=== PATIENT | male | born 1985 | race Caucasian/White ===

== ENCOUNTER 2016-09-16 21:35 | Emergency (ER) | payer MEDICAID, OTHER ==
[~2016-09-16] VITALS: Ht 177.8 cm; Wt 89.0 kg
[~2016-09-16 21:35] MED LIST: CIPR500T4 PO; FAMO-18 PO; ONDA4TAB8 PO; RANI150T9 PO
[2016-09-16 21:57] VITALS: Ht 177.8 cm; Wt 89.0 kg
[2016-09-16] MEDS ORDERED: HYDROCODONE/APAP (10/325) TAB PO ONE (23:00)
--- NOTE | 2016-09-16 23:06 | ERD ---
ER Documentation Chief Complaint Date/Time DATE: 09/16/16 TIME: 23:03 Chief Complaint sp fall 1 floor right rib pain 3 days ago HPI This is a 31-year-old male who presents to the emergency department today complaining of some right-sided rib pain and chest pain as shortness of breath after falling off his roof 3 days ago. Patient eats she was patching the roof after the rain when he slipped and fell. She smokes cigarettes. States that he took Motrin yesterday. He has not taken any medication today. Denies any fevers or chills. Denies any headache or loss of consciousness ROS All systems reviewed and are negative except as per history of present illness. Medications Home Meds Active Scripts Naproxen* (Naprosyn*) 500 Mg Tablet, 500 MG PO BID Y for PAIN AND/OR INFLAMMATION, #30 TAB Prov:NURIS MARCELINOC 09/17/16 Tramadol HCl (Tramadol HCl) 50 Mg Tablet, 50 MG PO Q4 Y for PAIN, #20 TAB Prov:NURIS MARCELINO PA-C 09/17/16 Famotidine* (Pepcid*) 20 Mg Tablet, 20 MG PO BID for 14 Days, TAB Prov:NURIS MARCELINOC 06/02/16 Ondansetron Hcl* (Zofran*) 4 Mg Tablet, 4 MG PO Q6H for NAUSEA AND/OR VOMITING, #30 TAB Prov:NURIS MARCELINO PA-C 06/02/16 Ranitidine Hcl* (Zantac*) 150 Mg Tablet, 150 MG PO BID, #60 TAB Prov:RIVKA RODRIGUEZ DO 05/22/16 Ciprofloxacin Hcl* (Ciprofloxacin Hcl*) 500 Mg Tablet, 500 MG PO BID for 7 Days , TAB Prov:RIVKA RODRIGUEZ DO 05/22/16 Allergies Allergies: Coded Allergies: shellfish derived (Verified Allergy, Unknown, RASH, ITCHINESS, 06/02/16) PMhx/Soc History of Surgery: No Anesthesia Reaction: No Hx 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 Disorder: No Hx Respiratory Disorders: No Hx Cardiac Disorders: No Hx Psychiatric Problems: No Hx Miscellaneous Medical Probl: Yes (hepatitis , alcohol abuse ,pancreatitis ) Hx Alcohol Use: Yes Hx Substance Use: Yes (cocaine ) Hx Tobacco Use: Yes Smoking Status: Current every day smoker Physical Exam Vitals Vital Signs Date Time Temp Pulse Resp B/P Pulse Ox O2 Delivery O2 Flow Rate FiO2 09/16/16 21:57 98.2 96 20 130/81 98 Physical Exam Const: No acute distress Head: Atraumatic Eyes: Normal Conjunctiva ENT: Normal External Ears, Nose and Mouth. Neck: Full range of motion..~ No meningismus. Resp: Clear to auscultation bilaterally. No absent breath sounds. No wheezing. Right-sided rib pain with tenderness to palpation Cardio: Regular rate and rhythm, no murmurs Abd: Soft, non tender, non distended. Normal bowel sounds. Skin: No petechiae or rashes Back: Thoracic spine midline tenderness. Ext: No cyanosis, or edema Neur: Awake and alert Psych: Normal Mood and Affect Results 24 hrs Current Medications Medications (Trade) Dose Ordered Sig/Meka Route PRN Reason Start Time Stop Time Status Last Admin Dose Admin Acetaminophen/ Hydrocodone Bitart (Midpines (10/325)) 1 tab ONCE ONCE PO 09/16/16 23:00 09/16/16 23:01 DC 09/16/16 23:20 Ibuprofen (Motrin) 800 mg ONCE ONCE PO 09/17/16 00:30 09/17/16 00:31 DC 09/17/16 00:26 DIAGNOSTIC IMAGING REPORT Patient: LIT WOOD : 1985 Age: 31 Sex: M MR #: [id number] DOS: 09/16/16 0000 Ordering MD: NURIS MARCELINO PA-C Location: E Room/Bed: PROCEDURE: XR thoracic spine CLINICAL INDICATION: Back pain after fall from roof. TECHNIQUE: AP, swimmers and lateral views of the thoracic spine were obtained. COMPARISON: None available FINDINGS: Bone architecture and mineralization are preserved. Thoracic kyphosis is preserved. Vertebral body stature is intact. No significant disk space narrowing is present. No lytic or blastic lesion is evident. The posterior elements and paraspinal soft tissues are normal. RPTAT:HJJR IMPRESSION: Unremarkable thoracic spine series. Tee Johnson Physician Date Time Electronically viewed and signed by Tee Johnson Physician on 09/17/2016 00:03 JR/ CC: NURIS MARCELINO PA-C DIAGNOSTIC IMAGING REPORT Patient: LIT WOOD : 1985 Age: 31 Sex: M MR #: [id number] DOS: 09/16/16 0000 Ordering MD: NURIS MARCELINO PA-C Location: FTE Room/Bed: PROCEDURE: XR Chest. CLINICAL INDICATION: Chest pain after fall from roof. TECHNIQUE: Portable AP view of the chest was obtained. COMPARISON: Rib series 09/16/2016 FINDINGS: The cardiomediastinal silhouette is within normal limits. The lungs are clear. There is no evidence for pleural effusion, pneumothorax or pulmonary vascular congestion. The osseous structures are intact with no evidence for acute abnormality. RPTAT:HJJR IMPRESSION: No evidence for acute intrathoracic pathology. Tee Johnson Physician Date Time Electronically viewed and signed by Physician Cassie on 09/17/2016 00:30 JR/ CC: NURIS MARCELINO PA-C DIAGNOSTIC IMAGING REPORT Patient: LIT WOOD : 1985 Age: 31 Sex: M MR #: [id number] DOS: 09/16/16 0000 Ordering MD: NURIS MARCELINO PA-C Location: FTE Room/Bed: PROCEDURE: XR Ribs. CLINICAL INDICATION: Status post trauma to right chest, fall from roof. TECHNIQUE: Four views of the right ribs were obtained. COMPARISON: None. FINDINGS: No rib fracture or other focal lesion is identified. The underlying lungs are unremarkable, without pleural effusion or pneumothorax seen. RPTAT:HJJR IMPRESSION: Unremarkable right rib series. Physician Cassie Date Time Electronically viewed and signed by Tee Johnson Physician on 09/17/2016 00:29 JR/ CC: NURIS MARCELINO PA-C Procedures/[facility] This 31-year-old male who presents the emergency department complaining of right -sided rib pain and shortness of breath after falling off a roof. Patient did have tenderness on physical exam he also had midline tenderness on his thoracic spine and therefore did obtain Per the radiology report Chest x-ray is negative. There is no evidence for pleural effusion, pneumothorax. Low suspicion for pneumonia, PE, abscess Rib series is unremarkable. There is no acute fracture or dislocation. Thoracic spine is unremarkable. There is no acute fracture or dislocation. There is no significant disc space narrowing. There is no lytic or blastic lesion. Symptoms at this time consistent with a contusion Patient was given Midpines here in the emergency department. I will give him a short course of tramadol as well as Naprosyn for home. At this time the patient is stable for discharge and outpatient management. Patient should follow up with their PCP in the next 1-2 days. They may return to the emergency department sooner for any persistent or worsening of symptoms. Patient understood and agreed with the plan. Departure Diagnosis: Primary Impression: Rib injury Condition: Fair NURIS MARCELNIO PA-C Sep 16, 2016 23:06
--- NOTE | 2016-09-17 00:03 | RADRPT ---
PROCEDURE: XR thoracic spine CLINICAL INDICATION: Back pain after fall from roof. TECHNIQUE: AP, swimmers and lateral views of the thoracic spine were obtained. COMPARISON: None available FINDINGS: Bone architecture and mineralization are preserved. Thoracic kyphosis is preserved. Vertebral body s tature is intact. No significant disk space narrowing is present. No lytic or blastic lesion is seamus dent. The posterior elements and paraspinal soft tissues are normal. RPTAT:HJJR IMPRESSION: Unremarkable thoracic spine series. Physician Cassie Date Time Electronically viewed and signed by Physician Cassie on 09/17/2016 00:03 /
--- NOTE | 2016-09-17 00:29 | RADRPT ---
PROCEDURE: XR Ribs. CLINICAL INDICATION: Status post trauma to right chest, fall from roof. TECHNIQUE: Four views of the right ribs were obtained. COMPARISON: None. FINDINGS: No rib fracture or other focal lesion is identified. The underlying lungs are unremarkable, without pleural effusion or pneumothorax seen. RPTAT:HJJR IMPRESSION: Unremarkable right rib series. Physician Cassie Date Time Electronically viewed and signed by Tee Johnson Physician on 09/17/2016 00:29 /
[2016-09-17] MEDS ORDERED: IBUPROFEN 800 MG TAB PO ONE (00:30)
--- NOTE | 2016-09-17 00:30 | RADRPT ---
PROCEDURE: XR Chest. CLINICAL INDICATION: Chest pain after fall from roof. TECHNIQUE: Portable AP view of the chest was obtained. COMPARISON: Rib series 09/16/2016 FINDINGS: The cardiomediastinal silhouette is within normal limits. The lungs are clear. There is no evidenc e for pleural effusion, pneumothorax or pulmonary vascular congestion. The osseous structures are i ntact with no evidence for acute abnormality. RPTAT:HJJR IMPRESSION: No evidence for acute intrathoracic pathology. Physician Cassie Date Time Electronically viewed and signed by Tee Johnson Physician on 09/17/2016 00:30 JR/
[2016-09-17] MEDS ORDERED: NAPR-260 PO (00:48)
[2016-09-17] MEDS ORDERED: TRAM50TA2 PO (00:48)
[2016-09-17 01:07] VITALS: BP 123/69; PULSE 75; RESP 20; TEMP 98.6
== END 2016-09-17 01:08 | disposition home or self-care (01) ==
LOC: FTE 21:35
DX: S29.9XXA Unspecified injury of thorax, initial encounter (principal); F17.210 Nicotine dependence, cigarettes, uncomplicated; W13.2XXA Fall from, out of or through roof, initial encounter; Y92.9 Unspecified place or not applicable
CPT/HCPCS: 71010; 71100; 72072; Z7502; Z7610

== ENCOUNTER 2016-10-08 07:33 | Inpatient (IN) | payer OTHER ==
[~2016-10-08] VITALS: Ht 172.7 cm; Wt 83.0 kg
[~2016-10-08 07:33] MED LIST changes: +NAPR-260 PO; +TRAM50TA2 PO
[2016-10-08] MEDS ORDERED: morphine 4 MG/ML VIAL IV STA (07:54)
[2016-10-08] MEDS ORDERED: BELLADONNA/PHENOBARBITAL TAB PO STA (07:54)
[2016-10-08] MEDS ORDERED: SOD CHLORIDE 0.9% 1,000 ML IV STA (07:54)
[2016-10-08] MEDS ORDERED: ONDANSETRON 4 MG INJ IV STA ×2 (07:54→09:38)
[2016-10-08] MEDS ORDERED: LIDOCAINE/MYLANTA 40 ML BTL PO STA (07:54)
[2016-10-08 08:06] LABS: ADD SCAN DIFF NO
--- NOTE | 2016-10-08 08:11 | ERD ---
ER Documentation Chief Complaint Date/Time DATE: 10/08/16 TIME: 07:57 Chief Complaint mid upper sharp abdominal pain x 1 week; nausea and vomitting HPI This is a 31-year-old male with a remote history of pancreatitis that presents to the emergency department complaining of a persistent sharp epigastric discomfort for the past 7 days. The patient indicates he consumed a small amount of alcohol 4 days prior to arrival but indicates that this pain is different from his previous episodes of pancreatitis. He has had 2 episodes of nonbloody nonbilious emesis in the past 24 hours. He is felt nauseous throughout the past 7 days. He indicates that the pain does radiate to the right upper quadrant but does not radiate to the back. He has had no diarrhea or constipation. He denies any recent travel or prolonged immobilization. He denies any recent remote blunt or penetrating abdominal wall trauma. He denies a fever shaking or chills. He has no shortness of breath at rest or exertion. He denies any frequency urgency or dysuria. He denies a headache or changes in vision. He has no chest pain or pressure that radiates to the neck arm back or jaw. He did not take any analgesic medication prior to arrival. He also indicates that over the past 7 days he has had a very dry hands with peeling of the skin on his hands but denies any tenderness of his upper extremities. He denies any changes in soaps or detergents or use of acidic or alkaline products that could have resulted in the dry skin. ROS All systems reviewed and are negative except as per history of present illness. Medications Home Meds Active Scripts Hydrocortisone (Hydrocortisone Oi) 28.35 Gm Oint, 28.35 GM TP BID, #1 Prov:JUAN SHEPARD 10/08/16 Sucralfate* (Carafate*) 1 Gm Tab, 1 GM PO QID Y for GASTROINTESTINAL UPSET, #30 TAB Prov:JUAN SHEPARD 10/08/16 Naproxen* (Naprosyn*) 500 Mg Tablet, 500 MG PO BID Y for PAIN AND/OR INFLAMMATION, #30 TAB Prov:NURIS MARCELINO PA-C 09/17/16 Tramadol HCl (Tramadol HCl) 50 Mg Tablet, 50 MG PO Q4 Y for PAIN, #20 TAB Prov:NURIS MARCELINO PA-C 09/17/16 Famotidine* (Pepcid*) 20 Mg Tablet, 20 MG PO BID for 14 Days, TAB Prov:CHARINURISLuz SILVA 06/02/16 Ondansetron Hcl* (Zofran*) 4 Mg Tablet, 4 MG PO Q6H for NAUSEA AND/OR VOMITING, #30 TAB Prov:CHARINURISNelda Beck PA-C 06/02/16 Ranitidine Hcl* (Zantac*) 150 Mg Tablet, 150 MG PO BID, #60 TAB Prov:LISANDROMUKUND PENAANGEL CRAVEN 05/22/16 Ciprofloxacin Hcl* (Ciprofloxacin Hcl*) 500 Mg Tablet, 500 MG PO BID for 7 Days , TAB Prov:MICHAELMUKUNDANGEL 05/22/16 Allergies Allergies: Coded Allergies: shellfish derived (Verified Allergy, Unknown, RASH, ITCHINESS, 06/02/16) PMhx/Soc Medical and Surgical Hx: pt denies Surgical Hx History of Surgery: No Anesthesia Reaction: No Hx 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 Disorder: No Hx Respiratory Disorders: No Hx Cardiac Disorders: No Hx Psychiatric Problems: No Hx Miscellaneous Medical Probl: Yes (hepatitis , alcohol abuse ,pancreatitis ) Hx Alcohol Use: Yes (Cut back on intake, last Sat. night) Hx Substance Use: Yes (cocaine ) Hx Tobacco Use: Yes Smoking Status: Current some day smoker Physical Exam Vitals Vital Signs Date Time Temp Pulse Resp B/P Pulse Ox O2 Delivery O2 Flow Rate FiO2 10/08/16 07:43 97.9 68 19 119/78 97 Physical Exam Constitutional:Well-developed. Well-nourished. HEENT:Normocephalic. Atraumatic.Pupils were equal round reactive to light. Moist mucous membranes.No tonsillar exudates. Neck: No nuchal rigidity. No lymphadenopathy. No posterior cervical spine tenderness or step-offs. Respiratory: Not using accessory muscles of respiration.Lungs were clear to auscultation bilaterally. No rhonchi. No rales. No wheezing. Cardiovascular: Regular rate regular rhythm.No murmurs. No rubs were appreciated.S1, S2 normal. Distal pulses are palpable 2+ bilaterally. GI: Abdomen was soft. Epigastric tenderness with mild tenderness in the right upper quadrant with negative Whipple's sign Non Distended. No pulsatile abdominal masses or bruits. No rebound. No guarding. Bowel sounds were present and normal. Muscle skeletal: Full range of motion of both the upper and lower extremities bilaterally.Normal muscle tone.No assymetrical calf tenderness or swelling. Skin: No petechia, no purpura. No lesions on the palms or the soles of the feet. No maculopapular rash. There is no sharply demarcated color changes of the skin of the digits to suggest Raynaud phenomenon. Scaling and cracking to the skin with no redness or excoriation and no bleeding to the digits on the dorsal surface of the bilateral digits of the upper extremity. NEURO: Patient was alert, awake, orientated x3.No facial droop. Gait observed and normal with no ataxia.Speech had regular rate and rhythm. No focal neurological deficits. Result Diagram: 10/08/1680210/08/16802 Results 24 hrs Laboratory Tests Test 10/08/16 08:03 Alanine Aminotransferase (ALT/SGPT) 62IU/L Albumin 4.2g/dl Albumin/Globulin Ratio 0.82 Alkaline Phosphatase 541IU/L Amylase Level 51U/L Anion Gap 19 Aspartate Amino Transf (AST/SGOT) 182IU/L Basophils # 0.110^3/ul Basophils % 0.6% Blood Urea Nitrogen 7mg/dl C-Reactive Protein 1.4mg/dl Calcium Level 9.7mg/dl Carbon Dioxide Level 29mmol/L Chloride Level 99mmol/L Creatinine 0.61mg/dl Direct Bilirubin 0.00mg/dl Eosinophils # 0.710^3/ul Eosinophils % 3.2% Globulin 5.10g/dl Glucose Level 102mg/dl Hematocrit 47.2% Hemoglobin 15.9g/dl Indirect Bilirubin 1.0mg/dl Lipase 75U/L Lymphocytes # 1.910^3/ul Lymphocytes % 9.0% Mean Corpuscular Hemoglobin 33.1pg Mean Corpuscular Hemoglobin Concent 33.7g/dl Mean Corpuscular Volume 98.1fl Mean Platelet Volume 11.6fl Monocytes # 1.110^3/ul Monocytes % 5.4% Neutrophils # 17.210^3/ul Neutrophils % 80.8% Nucleated Red Blood Cells # 0.010^3/ul Nucleated Red Blood Cells % 0.0/100WBC Platelet Count 15566^3/UL Potassium Level 4.3mmol/L Red Blood Count 4.8110^6/ul Red Cell Distribution Width 16.1% Sodium Level 143mmol/L Total Bilirubin 1.0mg/dl Total Protein 9.3g/dl White Blood Count 21.210^3/ul Current Medications Medications (Trade) Dose Ordered Sig/Meka Route PRN Reason Start Time Stop Time Status Last Admin Dose Admin Sodium Chloride (NS) 1,000 ml @ 1,000 mls/hr Q1H STAT IV 10/08/16 07:54 10/08/16 08:53 DC 10/08/16 08:05 Morphine Sulfate (morphine) 4 mg ONCE STAT IV 10/08/16 07:54 10/08/16 07:58 DC 10/08/16 08:05 Ondansetron HCl (Zofran Inj) 4 mg ONCE STAT IV 10/08/16 07:54 10/08/16 07:58 DC 10/08/16 08:05 Miscellaneous Medication (Gi Cocktail (2)) 40 ml ONCE STAT PO 10/08/16 07:54 10/08/16 07:58 DC 10/08/16 08:05 Belladonna/ Phenobarbital () 2 tab ONCE STAT PO 10/08/16 07:54 10/08/16 07:58 DC 10/08/16 08:05 Procedures/MDM The patient presented to the emergency department with epigastric pain. My differential diagnosis included but was not limited to abdominal aortic aneurysm , choledocholithiasis, gallstone ileus, renal colic, pyelonephritis, pancreatitis, peptic ulcer disease, atypical myocardical infarction, mesenteric ischemia, GERD, pulmonary infarction. The patient was placed on a preservationist, continuous pulse oximetry and IV access was established by nursing staff. I did obtain an ultrasound of the gallbladder due to the patient's physical exam findings which indicated the following read by the radiologist and reviewed by myself: Mild gallbladder wall thickening of 3mm with trace pericholecystic fluid. This was present on the previous CT from 05/22/2016 and is of uncertain significance as there is no biliary tree dilatation. There was no elevation of LFTs to suggest ductal obstruction, cholangitis or hepatitis. Given that the urinalysis did not show bilirubinuria, my suspicion for common duct obstruction or hepatitis was low. However the patient had severe leukocytosis and persistent pain in the epigastric and right upper quadrant despite receiving analgesic medication of IV morphing Zofran and GI cocktail. Therefore at this time I did feel the patient had physical exam findings to suggest symptomatic cholecystitis and a place a surgical consult to Dr. Fernandez. The patient was given IV Zosyn. Patient also complained of dry skin, itching and scaling of his upper extremity digits. My differential diagnosis included but was not limited to autoimmune rheumatic diseases such as systemic sclerosis, systemic lupus erythematosus, mixed connective tissue disorder, Sjogrens syndrome, dermatomyositis or eczema. I did provide a prescription for a low potency corticosteroid cream to treat suspected mild atopic dermatitis of the digits of the upper extremity. 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 The patient will be admitted in serious condition to the hospitalist to the medical surgical floor. Departure Diagnosis: Primary Impression: Atopic dermatitis, unspecified Additional Impression: Cholecystitis Condition: JUAN Mixon Oct 08, 2016 08:07
[2016-10-08] MEDS ORDERED: SUCR1TAB56 PO (08:14)
[2016-10-08] MEDS ORDERED: HYDR28.336 TP (08:14)
[2016-10-08 08:17] LABS: ALBUMIN 4.2 g/dl (3.3-4.9); POTASSIUM 4.3 mmol/L (3.5-5.1)
[2016-10-08 08:20] LABS: ALBUMIN/GLOBULIN RATIO 0.82; CALCIUM 9.7 mg/dl (8.4-10.2); CREATININE 0.61 mg/dl (0.61-1.24); TOTAL PROTEIN 9.3 g/dl (6.1-8.1)
[2016-10-08 08:23] LABS: C-REACTIVE PROTEIN 1.4 mg/dl (0.0-0.9)
--- NOTE | 2016-10-08 08:24 | RADRPT ---
PROCEDURE: XR Chest. CLINICAL INDICATION: Abdominal pain TECHNIQUE: A single AP view of the chest was obtained. COMPARISON: Chest x-ray dated 09/16/2016 FINDINGS: No focal airspace opacification, pleural effusion or pneumothorax is seen. The cardiomediastinal si lhouette is within normal limits for size. The osseous structures are unremarkable. IMPRESSION: No radiographic evidence of acute cardiopulmonary disease. No significant interval change. RPTAT: HH .Elsi Arce MD, MD Date Time Electronically viewed and signed by .Elsi Arce MD, MD on 10/08/2016 08:24 .G/
[2016-10-08 08:41] LABS: BASOPHIL # 0.1 10^3/ul (0.0-0.1); BASOPHILS % 0.6 % (0.0-2.0); EOSINOPHILS # 0.7 10^3/ul (0.0-0.5); EOSINOPHILS % 3.2 % (0.0-7.0); HEMATOCRIT 47.2 % (42.0-52.0); HEMOGLOBIN 15.9 g/dl (14.0-18.0); LYMPHOCYTES # 1.9 10^3/ul (0.8-2.9); MEAN CORPUSCULAR HEMOGLOBIN 33.1 pg (29.0-33.0); MEAN CORPUSCULAR HGB CONC 33.7 g/dl (32.0-37.0); MEAN CORPUSCULAR VOLUME 98.1 fl (82.0-101.0); MEAN PLATELET VOLUME 11.6 fl (7.4-10.4); MONOCYTE # 1.1 10^3/ul (0.3-0.9); MONOCYTES % 5.4 % (0.0-11.0); NEUTROPHIL # 17.2 10^3/ul (1.6-7.5); NEUTROPHILS % 80.8 % (39.0-77.0); PLATELET COUNT 194 10^3/UL (140-415); RED BLOOD COUNT 4.81 10^6/ul (4.70-6.10); RED CELL DISTRIBUTION WIDTH 16.1 % (11.5-14.5); WHITE BLOOD COUNT 21.2 10^3/ul (4.8-10.8)
--- NOTE | 2016-10-08 08:50 | RADRPT ---
PROCEDURE: US Abdomen (right upper quadrant). CLINICAL INDICATION: Abdominal pain. TECHNIQUE: Multiple real-time longitudinal and transverse images of the right upper quadrant of th e abdomen were acquired utilizing a curved array transducer. Images were reviewed on a high-resoluti on PACS workstation. COMPARISON: CT abdomen pelvis and 05/22/2016. FINDINGS: The liver is normal in size and echotexture. without focal mass or intrahepatic biliary dilatation. There is normal hepatopedal flow within the main portal vein. The gallbladder is well displayed wi thout filling defects. There is mild wall thickening at 3 mm with trace pericholecystic fluid prese nt. The common bile duct measures 4.4 mm in maximal dimension. The visualized portions of the panc reas are unremarkable with obscuration of the tail of the pancreas. No free fluid is identified. The right kidney measures 11.1 cm in length. There is normal echogenicity within the right kidney. There is no perinephric fluid collection. No hydronephrosis, mass, or calculus is seen. IMPRESSION: 1. Mild gallbladder wall thickening with trace pericholecystic fluid. This was present on the prev ious CT from 05/22/2016 and is of uncertain significance as there is no biliary tree dilatation. RPTAT: [facility] Physician Jarod Date Time Electronically viewed and signed by Physician Jarod on 10/08/2016 08:49 NANCY/
[2016-10-08] MEDS ORDERED: PIPER-TAZO 3.375 GM IV (PMX) 100 ML IVPB STA (09:00)
[2016-10-08] MEDS ORDERED: HYDROmorphONE 1 MG/ML SYG IV STA (09:38)
[2016-10-08 09:46] LABS: ADD UMIC YES; URINE BILIRUBIN (Dip) 2+ (NEGATIVE); URINE BLOOD (Dip) NEGATIVE (NEGATIVE); URINE COLOR AMBER (YELLOW); URINE GLUCOSE (Dip) NEGATIVE (NEGATIVE); URINE KETONES (Dip) TRACE (NEGATIVE); URINE LEUKOCYTE ESTERASE (Dip) NEGATIVE (NEGATIVE); URINE NITRITE (Dip) POSITIVE (NEGATIVE); URINE TOTAL PROTEIN (Dip) 1+ (NEGATIVE); URINE UROBILINOGEN (Dip) 1.0 E.U./dL (0.1-1.0)
[2016-10-08] MEDS ORDERED: ONDANSETRON 4 MG INJ IV PRN (10:00)
[2016-10-08 10:07] LABS: BACTERIA,URINE FEW; ICTOTEST POSITIVE (NEGATIVE); MUCUS,URINE MODERATE; SQUAMOUS EPITHELIAL CELL,UR MODERATE; URINE RBCS NONE SEEN /HPF (0)
[2016-10-08 10:08] VITALS: TEMP 98.4
[2016-10-08 10:35] VITALS: Ht 172.7 cm; Wt 83.0 kg
[2016-10-08 10:45] VITALS: BP 129/92; RESP 18
[2016-10-08] MEDS ORDERED: ACETAMINOPHEN 650 MG SUPP PR PRN (11:00)
[2016-10-08] MEDS ORDERED: BISACODYL 10 MG SUPP PR PRN (11:00)
[2016-10-08] MEDS ORDERED: MAGNESIUM HYDROXIDE 30ML CUP PO PRN (11:00)
[2016-10-08] MEDS ORDERED: NACL 0.9% 3 ML SYG IV SCH (11:00)
[2016-10-08] MEDS ORDERED: ACETAMINOPHEN 325 MG TAB PO PRN (11:00)
[2016-10-08] MEDS ORDERED: DOCUSATE SODIUM 100 MG CAP PO PRN (11:00)
[2016-10-08] MEDS ORDERED: HYDROCODONE/APAP (5/325) TAB PO PRN (11:00)
[2016-10-08] MEDS: PIPER-TAZO 3.375 GM IV (PMX) 100 ML IVPB SCH ×2 (11:51→17:15)
[2016-10-08] MEDS: SOD CHLORIDE 0.9% 1,000 ML IV SCH ×2 (11:51→20:11)
--- NOTE | 2016-10-08 12:46 | CONS ---
DATE OF ADMISSION: 10/08/2016 DATE OF CONSULTATION: 10/08/2016 TYPE OF CONSULTATION: Surgical. REFERRING PHYSICIAN: Juan Shepard. CHIEF COMPLAINT: 1. Abdominal pain. 2. Leukocytosis. 3. Gallbladder wall thickening and pericholecystic fluid as per multiple imaging studies going back to 2014. 4. Pancreatitis history. 5. Alcoholism. 6. Drug abuse history. 7. Abdominal mass history with questionable carcinoid. 8. Cirrhosis history. 9. Abnormal liver function tests. 10. Abnormal alkaline phosphatase. HISTORY OF PRESENT ILLNESS: Mr. Errol Oates is a 31-year-old male who is not a good historian and a ctually tried to deceive me upon initial evaluation; however, after I confronted him with some of hi s previous history, he was more truthful. He has an extensive past presentation and evaluation at [facility] for his abdominal pain secondary to alcoholic hepatitis and pancreatitis with cir rhosis and drug abuse. He also has a history of an abdominal mass which has been worked up for poss ible carcinoid. He represents with over a week of abdominal pain in the epigastric region associate d with nausea and nonbloody, nonbilious vomiting. The pain radiates to the right upper quadrant, bu t not to the back. There are no changes in his bowel habits. No fevers or chills. No chest pain, no shortness of breath. No visual or neurologic changes. No dysuria or frequency. He has had prev ious history of the same. He initially had reported very minimal alcohol use; however, after questi oning, he said he has had more alcohol in the past week or so and he has not significantly changed h is alcohol habits. Initially, he also refused any drug use, but then reported cocaine and marijuana use as well. In the emergency room, he was found to have leukocytosis and on ultrasound, gallbladder wall thicken ing with pericholecystic fluid. However, this was not reviewed as compared to his previous evaluati ons and ER was unaware of his previous continual chronic leukocytosis and gallbladder wall thickenin g. The patient was admitted under only the initial evaluation and surgical consult is obtained for further evaluation and treatment. PAST MEDICAL HISTORY: 1. Alcoholism. 2. Alcoholic hepatitis. 3. Cirrhosis. 4. Alcoholic pancreatitis. 5. Significant leukocytosis. 6. Ascites. 7. Abdominal mass, questionable carcinoid. 8. Elevated alkaline phosphatase. 9. Abnormal LFTs. 10. Elevated C-reactive protein. 11. Coagulopathy. 12. Pancreatic questionable calcification (reported as possible suture line on CT). 13. Hepatomegaly. 14. Mild splenomegaly. 15. Abdominal adenopathy. 16. Nausea and vomiting. PAST SURGICAL HISTORY: 1. Tonsillectomy in childhood. 2. Paracentesis. MEDICATIONS: As per MAR. ALLERGIES: SHELLFISH. SOCIAL HISTORY: 1. Heavy alcohol use. Still drinking. Drug abuse with cocaine. 2. Marijuana. 3. Tobacco smoker. FAMILY HISTORY: Noncontributory. REVIEW OF SYSTEMS: A 12-point review of systems negative unless addressed in HPI. No significant w eight changes. PHYSICAL EXAMINATION: VITAL SIGNS: Temperature is 98.4, pulse 66, blood pressure 139/92, satting 99%. GENERAL: No acute distress, comfortable. HEENT: Pupils equal, reactive. No scleral icterus. Mucous membranes are moist. NECK: Supple, no crepitus, no JVD. Trachea midline. PULMONARY: Normal respiratory effort. No wheezing. CARDIAC: S1, S2 present. ABDOMEN: Minimally tender in the epigastric. Negative Whipple's. No rebound, no guarding, not ri gid. EXTREMITIES: No edema. VASCULAR: Cap refill less than 2 seconds. NEUROLOGIC: Alert, oriented, moves all 4 extremities grossly. LABORATORIES AND RADIOGRAPHIC: As per chart and HPI. ASSESSMENT AND PLAN: Mr. Errol Oates is a 31-year-old male with multiple significant comorbidities. 1. Abdominal pain, probably secondary to alcoholic hepatitis/cirrhosis, maybe pancreatitis. Questi onable cholecystitis. Questionable mesenteric mass. The patient will need a HIDA scan at this poin t, continue antibiotics, oncology and medical followup. Will not krause the patient to surgery, espec ially since he has so many other issues that have to be addressed. The patient does not seem to be compliant in medical care and has not followed up with his previous medical team including oncology and surgery that were recommended to him in the past. 2. Alcoholism with alcoholic hepatitis and cirrhosis and pancreatitis. I highly recommend patient to stop alcohol and drug abuse and follow up in rehabilitation to improve his overall health status. 3. Multidrug abuse. Once again highly recommend followup with rehabilitation. 4. Coagulopathy secondary to liver disease. Continue medical optimization. 5. Abnormal LFTs and elevated alkaline phosphatase secondary to above. 6. Leukocytosis, chronic with leukemoid versus inflammatory versus infectious process. Continue an tibiotics and defer to hematology/oncology for further workup. 7. 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 We will recommend consultation with hem atology/oncology for further evaluation and treatment. Thank you very much for consulting me in this patient's care. Dictated By: CHRIS RICHARDS MD for JUAN SHEPARD MD SK/NTS Conf#: [id number] DID#: [id number]
[2016-10-08] MEDS: morphine 2 MG INJ IV PRN ×3 (14:03→22:14)
--- NOTE | 2016-10-08 14:49 | RADRPT ---
PROCEDURE: HIDA scan CLINICAL INDICATION: 31 -year-old patient with abdominal pain. TECHNIQUE: Following the intravenous injection of 8.1 mCi of Tc-99m mebrofenin, multiple images of the abdomen were obtained up to 60 minutes post injection. COMPARISON: No prior studies. FINDINGS: The liver is promptly visualized, demonstrates homogeneous distribution of radionuclide. There is visualization of the common bile duct, gallbladder and gastrointestinal activity within nor mal time. IMPRESSION: Unremarkable HIDA scan with no evidence to suggest the presence of common bile or cystic ducts obstr uction. RPTAT: HH .Chasidy Taveras MD, Date Time Electronically viewed and signed by .Chasidy Taveras MD, on 10/08/2016 14:49 .L/
--- NOTE | 2016-10-08 16:32 | HP ---
Date/Time of Note Date/Time of Note DATE: 10/08/16 TIME: 16:26 Assessment/Plan VTE Prophylaxis VTE Prophylaxis Intervention: SCD's Lines/Catheters [facility] Peripheral IV Urinary Cath still in place: No Assessment/Plan Chief Complaint/Hosp Course Assessment and plan 1. Abdominal pain. HIDA scan negative. Possibility of peritonitis? Follow-up with surgeon recommendations. 2. History of mesenteric lesion. Patient with previous blood smear with no malignancy or dysplastic cells seen. We'll follow-up with oncology 3. Alcohol abuse. Cessation advised. 4. Alcoholic hepatitis. Patient noted with transaminitis. Cessation of alcohol is an advised. 5. Coagulopathy secondary to #3. Stable at present. We'll monitor H&H 6. Leukocytosis. On antibiotics at this time. Admission process time is 40 minutes Discussed but of care with Dr. Pringle Problems: HPI/ROS Admit Date/Time Admit Date/Time Oct 08, 2016 at 09:46 Hx of Present Illness This is a 31-year-old male with history of alcoholic abuse and alcoholic pancreatitis as well as coagulopathy secondary to his alcohol abuse, alcoholic hepatitis, mesenteric lesion, who came to [facility] who came to [facility] due to reports of abdominal pain. Patient does report that he still drinks alcohol but to a lesser degree. Of note he was seen with a mesenteric lesion in his previous hospitalization. He was seen by oncologist and did have peripheral blood smear that showed no evidence of malignancy or dysplastic cells. He came to [facility] due to his admission for abdominal pain again. He reported having abdominal pain with nausea and nonbilious nonbloody vomiting for one week duration. Reports having worse abdominal pain with oral consumption. Denies any trauma to this area. He did have gallbladder wall thickening with trace pericholecystic fluid. He was also noted with leukocytosis with WBC at 21.2 remained afebrile. He was again seen with transaminitis. This is likely secondary to his alcohol consumption. Patient also noted with coagulopathy likely due to his underlying liver disease. General surgeon consulted. Currently still reports having some severe abdominal pain. We will evaluate him for the aforementioned issues ROS 12 point review of systems obtain an entirely negative except that mentioned in the history of present illness PMH/Family/Social Past Medical History Medical/surgical history alcoholic abuse and alcoholic pancreatitis as well as coagulopathy secondary to his alcohol abuse, alcoholic hepatitis, mesenteric lesion Past Surgical History Past Surgical Hx: no surgical history Family History Significant Family History: no pertinent family hx Social History Alcohol Use: heavy Smoking Status: Current every day smoker Exam/Review of Systems Vital Signs Vitals Vital Signs Date Time Temp Pulse Resp B/P Pulse Ox O2 Delivery O2 Flow Rate FiO2 10/08/16 10:45 98.4 66 18 129/92 97 10/08/16 10:08 Room Air Exam Exam General: In mild distress reported abdominal pain Eyes: Pupils equal round noted with icteric sclera Neck: Supple nontender, no JVD Cardiac: S1, S2 auscultated, regular rhythm and rate Pulmonary: Minimally diminished lung bases GI: Tender upon palpation more in epigastric area Extremities: Minimal edema bilateral extremities +1 Skin: Slightly jaundiced Neurologic: Alert to person place and time and situation Labs Result Diagram: 10/08/16 0803 10/08/16 0803 Medications Medications Current Medications Hydrocortisone 1 applic 1 applic BID TOP ; Start 10/08/16 at 21:00 Piperacillin Sod/ Tazobactam Sod 100 ml @ 200 mls/hr Q6 IVPB Last administered on 10/08/16 11:51; Admin Dose 200 MLS/HR; Start 10/08/16 at 12:00 Sodium Chloride (NS) 1,000 ml @ 100 mls/hr Q10H IV Last administered on 11:51; Admin Dose 100 MLS/HR; Start 10/08/16 at 10:31 Ondansetron HCl (Zofran Inj) 4 mg Q6H PRN IV NAUSEA AND/OR VOMITING; Start 10/08 at 11:00 Acetaminophen (Tylenol Tab) 650 mg Q6H PRN PO PAIN LEVEL 1-3 OR FEVER; Start at 11:00 Acetaminophen (Tylenol Supp) 650 mg Q6H PRN [place] PAIN LEVEL 1-3 OR FEVER; Start 10/08/16 at 11:00 Acetaminophen/ Hydrocodone Bitart ([place] (5/325)) 1 tab Q6H PRN PO MODERATE PAIN LEVEL 4-6; Start 10/08/16 at 11:00 Acetaminophen/ Hydrocodone Bitart ([place] (5/325)) 2 tab Q6H PRN PO SEVERE PAIN LEVEL 7-10; Start 10/08/16 at 11:00 Morphine Sulfate (morphine) 2 mg Q4H PRN IV SEVERE PAIN LEVEL 7-10 Last administered on 10/08/16t 14:03; Admin Dose 2 MG; Start 10/08/16 at 11:00 Docusate Sodium (Colace) 100 mg Q12H PRN PO CONSTIPATION; Start 10/08/16 at 11: 00 Magnesium Hydroxide (Milk Of Mag) 30 ml DAILY PRN PO CONSTIPATION; Start at 11:00 Bisacodyl (Dulcolax Supp) 10 mg DAILY PRN [place] CONSTIPATION; Start 10/08/16 at 11: 00 Pantoprazole (Protonix Iv) 40 mg DAILY@06 IV ; Start 10/09/16 at 06:00 Influenza Virus Vaccine (Fluzone) 0.5 ml ONCE ONCE IM* ; Start 10/09/16 at 09:00 ; Stop 10/09/16 at 09:01 APURVA BARNARD Oct 08, 2016 16:31
[2016-10-08 19:40] VITALS: BP 126/68; PULSE 62; RESP 16
[2016-10-08] MEDS: HYDROCORTISONE 1% 28.35 GM OINT TOP SCH (20:11)
[2016-10-08] MEDS: ONDANSETRON 4 MG INJ IV PRN (20:32)
[2016-10-08 20:56] VITALS: BP 126/68; RESP 16
[2016-10-09] MEDS: PIPER-TAZO 3.375 GM IV (PMX) 100 ML IVPB SCH ×5 (00:58→23:45)
[2016-10-09] MEDS: SOD CHLORIDE 0.9% 1,000 ML IV SCH ×2 (01:00→12:15)
[2016-10-09] MEDS: morphine 2 MG INJ IV PRN ×5 (03:24→20:42)
[2016-10-09 05:51] LABS: ALBUMIN 3.4 g/dl (3.3-4.9)
[2016-10-09 05:54] LABS: BILIRUBIN,INDIRECT 1.4 mg/dl (0-1.1); BILIRUBIN,TOTAL 1.4 mg/dl (0.2-1.3); CREATININE 0.67 mg/dl (0.61-1.24)
[2016-10-09 05:55] LABS: ALBUMIN/GLOBULIN RATIO 0.82; CALCIUM 8.5 mg/dl (8.4-10.2); PHOSPHORUS 4.1 mg/dl (2.5-4.9); TOTAL PROTEIN 7.5 g/dl (6.1-8.1)
[2016-10-09 05:56] LABS: CHOL/HDL RATIO 5.2 RATIO; MAGNESIUM 1.8 mg/dl (1.7-2.5)
[2016-10-09] MEDS: PANTOPRAZOLE 40 MG INJ IV SCH (06:00)
[2016-10-09 06:03] LABS: T3 UPTAKE 43.3 % (23.5-40.5)
[2016-10-09 06:17] LABS: THYROID STIMULATING HORMONE 2.92 MIU/L (0.465-4.680)
[2016-10-09 07:47] VITALS: BP 119/67; RESP 20
[2016-10-09] MEDS: ONDANSETRON 4 MG INJ IV PRN (08:00)
[2016-10-09] MEDS ORDERED: INFLUENZA VIRUS VACCINE 0.5 ML (DISPENSING) IM* ONE (09:00)
--- NOTE | 2016-10-09 10:44 | PN ---
Date/Time of Note Date/Time of Note DATE: 10/09/16 TIME: 10:41 Assessment/Plan VTE Prophylaxis VTE Prophylaxis Intervention: SCD's Lines/Catheters [facility] Type [facility] Peripheral IV Urinary Cath still in place: No Assessment/Plan Chief Complaint/Hosp Course Assessment and plan 1. Abdominal pain. HIDA scan negative. Follow up CT scan of abdomen with contrast. Follow-up with surgeon recommendations. 2. History of mesenteric lesion. Patient with previous blood smear with no malignancy or dysplastic cells seen. Patient's oncologist Dr. Stafford consulted 3. Alcohol abuse. Cessation advised. 4. Alcoholic hepatitis. Patient noted with transaminitis. Cessation of alcohol is an advised. 5. Coagulopathy secondary to #3. Stable at present. We'll monitor H&H 6. Leukocytosis. On antibiotics at this time. DISPO/PLAN: Still with abd pain not much changed. Follow up ct abd with contrast. Discussed with oncology. Discussed but of care with Dr. Pringle Problems: Subjective 24 Hr Interval Summary Free Text/Dictation still with reports of abdominal pain, 8 out of 10. not much changed. no nausea Exam/Review of Systems Vital Signs Vitals Vital Signs Date Time Temp Pulse Resp B/P Pulse Ox O2 Delivery O2 Flow Rate FiO2 10/09/16 07:47 97.6 60 20 119/67 96 10/08/16 19:40 Room Air Intake and Output 10/08/16 10/08/16 10/09/16 15:00 23:00 07:00 Intake Total 200 ml 600 ml 1200 ml Balance 200 ml 600 ml 1200 ml Exam General: In mild distress reported abdominal pain still. no nausea Eyes: Pupils equal round noted with icteric sclera Neck: Supple nontender, no JVD Cardiac: S1, S2 auscultated, regular rhythm and rate Pulmonary: Minimally diminished lung bases GI: Tender upon palpation more in epigastric area still. reports not changed Extremities: less edema BLE Skin: Slightly jaundiced still Neurologic: Alert to person place and time and situation Results Result Diagram: 10/08/16 0803 10/09/16 0500 Results 24 hrs Laboratory Tests Test 10/09/16 05:00 Alanine Aminotransferase (ALT/SGPT) 44 Albumin 3.4 Albumin/Globulin Ratio 0.82 Alkaline Phosphatase 374 H Anion Gap 16 Aspartate Amino Transf (AST/SGOT) 102 H Blood Urea Nitrogen 7 Calcium Level 8.5 Carbon Dioxide Level 26 Chloride Level 100 Cholesterol Level 193 Cholesterol/HDL Ratio 5.2 Creatinine 0.67 Direct Bilirubin 0.00 Free Thyroxine Index 1.99 Globulin 4.10 H Glucose Level 73 HDL Cholesterol 37 Hemoglobin A1c 5.0 Indirect Bilirubin 1.4 H LDL Cholesterol, Calculated 118 Magnesium Level 1.8 Phosphorus Level 4.1 Potassium Level 4.0 Sodium Level 138 Thyroid Stimulating Hormone (TSH) 2.920 Thyroxine (T4) 4.6 L Total Bilirubin 1.4 H Total Protein 7.5 # Triglycerides Level 188 H Triiodothyronine (T3) Uptake 43.3 H Medications Medications Current Medications Hydrocortisone 1 applic 1 applic BID TOP Last administered on 10/08/16 20:11; Admin Dose 1 APPLIC; Start 10/08/16 at 21:00 Piperacillin Sod/ Tazobactam Sod 100 ml @ 200 mls/hr Q6 IVPB Last administered on 10/09/16 06:01; Admin Dose 200 MLS/HR; Start 10/08/16 at 12:00 Sodium Chloride (NS) 1,000 ml @ 100 mls/hr Q10H IV Last administered on 01:00; Admin Dose 100 MLS/HR; Start 10/08/16 at 10:31 Ondansetron HCl (Zofran Inj) 4 mg Q6H PRN IV NAUSEA AND/OR VOMITING Last administered on 10/09/16 08:00; Admin Dose 4 MG; Start 10/08/16 at 11:00 Acetaminophen (Tylenol Tab) 650 mg Q6H PRN PO PAIN LEVEL 1-3 OR FEVER; Start at 11:00 Acetaminophen (Tylenol Supp) 650 mg Q6H PRN [place] PAIN LEVEL 1-3 OR FEVER; Start 10/08/16 at 11:00 Acetaminophen/ Hydrocodone Bitart ([place] (5/325)) 1 tab Q6H PRN PO MODERATE PAIN LEVEL 4-6; Start 10/08/16 at 11:00 Acetaminophen/ Hydrocodone Bitart ([place] (5/325)) 2 tab Q6H PRN PO SEVERE PAIN LEVEL 7-10; Start 10/08/16 at 11:00 Morphine Sulfate (morphine) 2 mg Q4H PRN IV SEVERE PAIN LEVEL 7-10 Last administered on 10/09/16 07:51; Admin Dose 2 MG; Start 10/08/16 at 11:00 Docusate Sodium (Colace) 100 mg Q12H PRN PO CONSTIPATION; Start 10/08/16 at 11: 00 Magnesium Hydroxide (Milk Of Mag) 30 ml DAILY PRN PO CONSTIPATION; Start at 11:00 Bisacodyl (Dulcolax Supp) 10 mg DAILY PRN [place] CONSTIPATION; Start 10/08/16 at 11: 00 Pantoprazole (Protonix Iv) 40 mg DAILY@06 IV Last administered on 10/09/16t 06: 00; Admin Dose 40 MG; Start 10/09/16 at 06:00 APURVA BARNARD Oct 09, 2016 10:44
[2016-10-09] MEDS ORDERED: BARIUM SULF 2% 450 ML BTL (BERRY SMOOTHIE) PO ONE (11:00)
[2016-10-09] MEDS: HYDROCORTISONE 1% 28.35 GM OINT TOP SCH ×2 (12:10→20:07)
[2016-10-09 12:21] LABS: ADD SCAN DIFF NO
[2016-10-09 12:26] LABS: BASOPHIL # 0.1 10^3/ul (0.0-0.1); BASOPHILS % 0.5 % (0.0-2.0); EOSINOPHILS # 0.8 10^3/ul (0.0-0.5); EOSINOPHILS % 4.7 % (0.0-7.0); HEMATOCRIT 42.6 % (42.0-52.0); HEMOGLOBIN 14.3 g/dl (14.0-18.0); LYMPHOCYTES # 1.6 10^3/ul (0.8-2.9); LYMPHOCYTES % 8.9 % (15.0-51.0); MEAN CORPUSCULAR HEMOGLOBIN 33.4 pg (29.0-33.0); MEAN CORPUSCULAR HGB CONC 33.6 g/dl (32.0-37.0); MEAN CORPUSCULAR VOLUME 99.5 fl (82.0-101.0); MEAN PLATELET VOLUME 12.2 fl (7.4-10.4); MONOCYTE # 0.7 10^3/ul (0.3-0.9); MONOCYTES % 4.2 % (0.0-11.0); NEUTROPHIL # 14.2 10^3/ul (1.6-7.5); NEUTROPHILS % 81.1 % (39.0-77.0); PLATELET COUNT 137 10^3/UL (140-415); RED BLOOD COUNT 4.28 10^6/ul (4.70-6.10); RED CELL DISTRIBUTION WIDTH 15.3 % (11.5-14.5); WHITE BLOOD COUNT 17.6 10^3/ul (4.8-10.8)
[2016-10-09] MEDS ORDERED: SOD CHLORIDE 0.9% 100 ML ONE (12:48)
[2016-10-09] MEDS ORDERED: IOHEXOL 300MG/ML 150 ML BTL ONE (12:48)
--- NOTE | 2016-10-09 14:09 | CONS ---
Date/Time of Note Date/Time of Note DATE: 10/09/16 TIME: 13:47 Assessment/Plan Assessment/Plan Chief Complaint/Hosp Course 30 year old male admitted for acute alcoholic hepatitis with history of a 3.1 cm mesenteric mass abutting the transverse colon concerning for a carcinoid tumor. Past urinary 5HIAA and chromogranin levels drawn were within normal limits. Recent CT A/P done demonstrates resolution of this mass. This mass might have represented an inflamed lymph node at hte time of his alcoholic hepatitis. given that it has resolved there is no need for further workup of this mass. -cont treatment of acute cholecystitis per surgery Problems: Consultation Date/Type/Reason Admit Date/Time Oct 08, 2016 at 09:46 Date of Consultation: Oct 09, 2016 Type of Consultation: hematology Reason for Consultation abdominal mass Referring Provider: APURVA BARNARD Hx of Present Illness The patient is a 30 year old male who is a known alcoholic, with history of admissions for alcoholic pancreatitis adn hepatitis, who presents with 1 week abdominal pain in the epigastric region associated with nausea and nonbloody, nonbilious vomiting. Patient states the pain radiates to the right upper quadrant who presented with RUQ abdominal pain, and is associated with weakness. On last admission pt was found with a 3.1 cm mesenteric mass abutting the transverse colon concerning for a carcinoid tumor. Given the difficulty in obtaining a biopsy, pt was evaluate for a functioning carcinoid tumor with a 5-HIAA and chromogranin levels which were both within normal limits. Pt is being followed with serial scans to monitor this mass .Currently the patient states that he feels much better than when he first presented to the hospital, and feels decreased pain and fatigue. Constitutional: poor po Eyes: no complaints ENT: no complaints Respiratory: no complaints Cardiovascular: no complaints Gastrointestinal: decreased appetite, nausea, pain Genitourinary: no complaints Musculoskeletal: no complaints Neurologic: no complaints Endocrine: no complaints Past Medical History cirrhosis alcoholic pancreatitis Past Surgical History Past Surgical Hx: no surgical history Family History Significant Family History: no pertinent family hx Social History Alcohol Use: heavy Smoking Status: Current every day smoker Exam/Review of Systems Vital Signs Vitals Vital Signs Date Time Temp Pulse Resp B/P Pulse Ox O2 Delivery O2 Flow Rate FiO2 10/09/16 07:47 97.6 60 20 119/67 96 10/08/16 19:40 Room Air Intake and Output 10/08/16 10/08/16 10/09/16 15:00 23:00 07:00 Intake Total 200 ml 600 ml 1200 ml Balance 200 ml 600 ml 1200 ml Exam Constitutional: alert, oriented Psych: no complaints Head: atraumatic, normocephalic Eyes: nl conjunctiva ENMT: nl external ears & nose Neck: non-tender, supple Respiratory: clear to auscultation, normal air movement Cardiovascular: regular rate and rhythm Gastrointestinal: soft Musculoskeletal: nl extremities to inspection, nl gait and stance Extremities: normal pulses Results Result Diagram: 10/09/16 1150 10/09/16 0500 Results 24 hrs Laboratory Tests Test 10/09/16 05:00 10/09/16 11:50 Alanine Aminotransferase (ALT/SGPT) 44 Albumin 3.4 Albumin/Globulin Ratio 0.82 Alkaline Phosphatase 374 H Anion Gap 16 Aspartate Amino Transf (AST/SGOT) 102 H Blood Urea Nitrogen 7 Calcium Level 8.5 Carbon Dioxide Level 26 Chloride Level 100 Cholesterol Level 193 Cholesterol/HDL Ratio 5.2 Creatinine 0.67 Direct Bilirubin 0.00 Free Thyroxine Index 1.99 Globulin 4.10 H Glucose Level 73 HDL Cholesterol 37 Hemoglobin A1c 5.0 Indirect Bilirubin 1.4 H LDL Cholesterol, Calculated 118 Magnesium Level 1.8 Phosphorus Level 4.1 Potassium Level 4.0 Sodium Level 138 Thyroid Stimulating Hormone (TSH) 2.920 Thyroxine (T4) 4.6 L Total Bilirubin 1.4 H Total Protein 7.5 # Triglycerides Level 188 H Triiodothyronine (T3) Uptake 43.3 H Basophils # 0.1 Basophils % 0.5 Eosinophils # 0.8 H Eosinophils % 4.7 Hematocrit 42.6 Hemoglobin 14.3 Lymphocytes # 1.6 Lymphocytes % 8.9 L Mean Corpuscular Hemoglobin 33.4 H Mean Corpuscular Hemoglobin Concent 33.6 Mean Corpuscular Volume 99.5 Mean Platelet Volume 12.2 H Monocytes # 0.7 Monocytes % 4.2 Neutrophils # 14.2 H Neutrophils % 81.1 H Nucleated Red Blood Cells # 0.0 Nucleated Red Blood Cells % 0.0 Platelet Count 137 #L Red Blood Count 4.28 L Red Cell Distribution Width 15.3 H White Blood Count 17.6 H Medications Medications Current Medications Hydrocortisone 1 applic 1 applic BID TOP Last administered on 10/09/16t 12:10; Admin Dose 1 APPLIC; Start 10/08/16 at 21:00 Piperacillin Sod/ Tazobactam Sod 100 ml @ 200 mls/hr Q6 IVPB Last administered on 10/09/16 12:15; Admin Dose 200 MLS/HR; Start 10/08/16 at 12:00 Sodium Chloride (NS) 1,000 ml @ 100 mls/hr Q10H IV Last administered on 12:15; Admin Dose 100 MLS/HR; Start 10/08/16 at 10:31 Ondansetron HCl (Zofran Inj) 4 mg Q6H PRN IV NAUSEA AND/OR VOMITING Last administered on 10/09/16 08:00; Admin Dose 4 MG; Start 10/08/16 at 11:00 Acetaminophen (Tylenol Tab) 650 mg Q6H PRN PO PAIN LEVEL 1-3 OR FEVER; Start at 11:00 Acetaminophen (Tylenol Supp) 650 mg Q6H PRN [place] PAIN LEVEL 1-3 OR FEVER; Start 10/08/16 at 11:00 Acetaminophen/ Hydrocodone Bitart ([place] (5/325)) 1 tab Q6H PRN PO MODERATE PAIN LEVEL 4-6; Start 10/08/16 at 11:00 Acetaminophen/ Hydrocodone Bitart ([place] (5/325)) 2 tab Q6H PRN PO SEVERE PAIN LEVEL 7-10; Start 10/08/16 at 11:00 Morphine Sulfate (morphine) 2 mg Q4H PRN IV SEVERE PAIN LEVEL 7-10 Last administered on 10/09/16 12:09; Admin Dose 2 MG; Start 10/08/16 at 11:00 Docusate Sodium (Colace) 100 mg Q12H PRN PO CONSTIPATION; Start 10/08/16 at 11: 00 Magnesium Hydroxide (Milk Of Mag) 30 ml DAILY PRN PO CONSTIPATION; Start at 11:00 Bisacodyl (Dulcolax Supp) 10 mg DAILY PRN [place] CONSTIPATION; Start 10/08/16 at 11: 00 Pantoprazole (Protonix Iv) 40 mg DAILY@06 IV Last administered on 10/09/16 06: 00; Admin Dose 40 MG; Start 10/09/16 at 06:00 HARSHIL ALMONTE M.D. Oct 09, 2016 13:57
--- NOTE | 2016-10-09 14:11 | RADRPT ---
PROCEDURE: CT Abdomen and Pelvis with contrast. CLINICAL INDICATION: Abdominal pain TECHNIQUE: CT of the abdomen and pelvis was performed on a multi-detector scanner following the un complicated IV administration of 100 cc of Omnipaque 300. Coronal and sagittal images were reformat george from the axial data set. One or more of the following dose reduction techniques were used: auto mated exposure control, adjustment of the mA and/or kV according to patient size, use of iterative reconstruction technique. CTDI = 15.28 mGy. DLP = 996.87 mGy-cm. COMPARISON: CT, 05/22/2016 FINDINGS: CT abdomen: The lung bases are clear. The heart size is normal, without pericardial effusion. The liver is enl arged (22 cm) and fatty infiltrated, without evidence of focal mass. The liver demonstrates mild montnao rface nodularity, concerning for cirrhosis. Gallbladder and biliary tree are unremarkable. Scatter ed pancreatic and peripancreatic calcifications are noted, likely sequela of chronic pancreatitis. No pancreatic mass, ductal dilatation, or peripancreatic inflammation is seen. Splenomegaly is note d measuring 15.6 cm. Adrenal glands and kidneys are unremarkable. No urolithiasis or obstructive u ropathy is identified. The stomach is grossly unremarkable. There is no abdominal aortic aneurysm or dissection. There is no retroperitoneal lymphadenopathy. The jennyfer hepatis region is clear. CT pelvis: Small amount of ascites is present. No bowel obstruction, free intraperitoneal air or abscess is id entified. The appendix is well visualized and normal. There is no diverticulosis, diverticulitis o r colitis. Urinary bladder is grossly unremarkable. No pelvic mass or lymphadenopathy is seen. The surrounding osseous structures are unremarkable. No osteolytic or osteoblastic lesion is detect ed. IMPRESSION: 1. Hepatic steatosis and hepatomegaly are noted. The liver surface is nodular, concerning for cirr hosis. There are signs of portal hypertension including splenomegaly and small amount of ascites. 2. Scattered pancreatic and peripancreatic calcifications are noted, likely sequela of chronic panc reatitis. No evidence of acute pancreatitis is identified. 3. No mass or lymphadenopathy is seen. RPTAT: TT .Herve Wills MD, Date Time Electronically viewed and signed by .Herve Wills MD, on 10/09/2016 14:11 .R/
--- NOTE | 2016-10-09 19:19 | PN ---
Date/Time of Note Date/Time of Note DATE: 10/08/16 TIME: 19:15 Assessment/Plan Lines/Catheters IV Catheter Type (from [email or web address] Peripheral IV Valadez in Place (from [facility] [[email or web address] No Assessment/Plan Chief Complaint/Hosp Course 1. Abdominal pain, probably secondary to alcoholic hepatitis/cirrhosis, maybe pancreatitis. Not cholecystitis (negative HIDA). Questionable mesenteric mass. -oncology -medical followup -no surgery at this time -encourage medical compliance 2. Alcoholism with alcoholic hepatitis and cirrhosis and pancreatitis. -I highly recommend patient to stop alcohol and drug abuse and follow up in rehabilitation to improve his overall health status. 3. Multidrug abuse. Once again highly recommend followup with rehabilitation. 4. Coagulopathy secondary to liver disease. Continue medical optimization. 5. Abnormal LFTs and elevated alkaline phosphatase secondary to above. 6. Leukocytosis, chronic with leukemoid versus inflammatory versus infectious process. Continue antibiotics and defer to hematology/oncology for further workup. 7. 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 -hematology/oncology -CT Thank you Late entry 10/08 Problems: Subjective 24 Hr Interval Summary No f/c. Min pain. No n/v. No cp/sob. No cough. No feliz/dizzy/visual or neuro changes. No dysuria. Bowel function. Exam/Review of Systems Vital Signs Vitals Vital Signs Date Time Temp Pulse Resp B/P Pulse Ox O2 Delivery O2 Flow Rate FiO2 10/09/16 07:47 97.6 60 20 119/67 96 10/08/16 19:40 Room Air Intake and Output 10/08/16 10/08/16 10/09/16 15:00 23:00 07:00 Intake Total 200 ml 600 ml 1200 ml Balance 200 ml 600 ml 1200 ml Exam Free Text/Dictation GENERAL: No acute distress, comfortable. HEENT: Pupils equal, reactive. No scleral icterus. Mucous membranes are moist. NECK: Supple, no crepitus, no JVD. Trachea midline. PULMONARY: Normal respiratory effort. No wheezing. CARDIAC: S1, S2 present. ABDOMEN: Minimally tender in the epigastric. Negative Whipple's. No rebound , no guarding, not rigid. EXTREMITIES: No edema. VASCULAR: Cap refill less than 2 seconds. NEUROLOGIC: Alert, oriented, moves all 4 extremities grossly. Results Result Diagram: 10/09/16 1150 10/09/16 0500 CHRIS RICHARDS MD Oct 09, 2016 19:19
--- NOTE | 2016-10-09 19:19 | PN ---
Date/Time of Note Date/Time of Note DATE: 10/09/16 TIME: 19:19 Assessment/Plan Lines/Catheters IV Catheter Type (from [facility]): Peripheral IV Valadez in Place (from [facility]): No Assessment/Plan Chief Complaint/Hosp Course 1. Abdominal pain, probably secondary to alcoholic hepatitis/cirrhosis, maybe pancreatitis. Not cholecystitis (negative HIDA). Questionable mesenteric mass resolved on current CT (?previous enlarged LN). -medical followup -no surgery at this time -encourage medical compliance 2. Alcoholism with alcoholic hepatitis and cirrhosis and pancreatitis. -I highly recommend patient to stop alcohol and drug abuse and follow up in rehabilitation to improve his overall health status. 3. Multidrug abuse. Once again highly recommend followup with rehabilitation. 4. Coagulopathy secondary to liver disease. Continue medical optimization. 5. Abnormal LFTs and elevated alkaline phosphatase secondary to above. 6. Leukocytosis, chronic with leukemoid versus inflammatory versus infectious process. Continue antibiotics and defer to hematology/oncology for further workup. 7. History of mesenteric mass but clear on current CT, ? enlarged LN that has resolved. Thank you, Problems: Subjective [address] noted. No f/c. Min pain. No n/v. No cp/sob. No cough. No feliz/dizzy/ visual or neuro changes. No dysuria. Bowel function. Exam/Review of Systems Vital Signs Vitals Vital Signs Date Time Temp Pulse Resp B/P Pulse Ox O2 Delivery O2 Flow Rate FiO2 10/09/16 07:47 97.6 60 20 119/67 96 10/08/16 19:40 Room Air Intake and Output 10/08/16 10/08/16 10/09/16 15:00 23:00 07:00 Intake Total 200 ml 600 ml 1200 ml Balance 200 ml 600 ml 1200 ml Exam Free Text/Dictation GENERAL: No acute distress, comfortable. HEENT: Pupils equal, reactive. No scleral icterus. Mucous membranes are moist. NECK: Supple, no crepitus, no JVD. Trachea midline. PULMONARY: Normal respiratory effort. No wheezing. CARDIAC: S1, S2 present. ABDOMEN: Minimally tender in the epigastric. Negative Whipple's. No rebound , no guarding, not rigid. EXTREMITIES: No edema. VASCULAR: Cap refill less than 2 seconds. NEUROLOGIC: Alert, oriented, moves all 4 extremities grossly. Results Result Diagram: 10/09/16 1150 10/09/16 0500 CHRIS RICHARDS MD Oct 09, 2016 19:19
[2016-10-09 20:00] VITALS: BP 120/67; PULSE 55; RESP 18
[2016-10-09] MEDS: HYDROCODONE/APAP (5/325) TAB PO PRN (20:09)
[2016-10-10] MEDS: HYDROCODONE/APAP (5/325) TAB PO PRN ×2 (01:45→10:22)
[2016-10-10] MEDS: SOD CHLORIDE 0.9% 1,000 ML IV SCH ×2 (01:45→12:17)
[2016-10-10] MEDS: PANTOPRAZOLE 40 MG INJ IV SCH (05:12)
[2016-10-10] MEDS: PIPER-TAZO 3.375 GM IV (PMX) 100 ML IVPB SCH ×2 (05:12→12:16)
[2016-10-10] MEDS: morphine 2 MG INJ IV PRN ×3 (05:23→13:33)
[2016-10-10 05:39] LABS: ADD SCAN DIFF NO
[2016-10-10 05:51] LABS: BASOPHIL # 0.1 10^3/ul (0.0-0.1); BASOPHILS % 0.5 % (0.0-2.0); EOSINOPHILS # 0.7 10^3/ul (0.0-0.5); EOSINOPHILS % 4.2 % (0.0-7.0); HEMATOCRIT 42.4 % (42.0-52.0); HEMOGLOBIN 13.9 g/dl (14.0-18.0); LYMPHOCYTES # 1.5 10^3/ul (0.8-2.9); LYMPHOCYTES % 8.2 % (15.0-51.0); MEAN CORPUSCULAR HEMOGLOBIN 32.9 pg (29.0-33.0); MEAN CORPUSCULAR HGB CONC 32.8 g/dl (32.0-37.0); MEAN CORPUSCULAR VOLUME 100.5 fl (82.0-101.0); MONOCYTE # 0.8 10^3/ul (0.3-0.9); MONOCYTES % 4.4 % (0.0-11.0); NEUTROPHIL # 14.6 10^3/ul (1.6-7.5); NEUTROPHILS % 82.1 % (39.0-77.0); PLATELET COUNT 137 10^3/UL (140-415); RED BLOOD COUNT 4.22 10^6/ul (4.70-6.10); RED CELL DISTRIBUTION WIDTH 14.9 % (11.5-14.5); WHITE BLOOD COUNT 17.8 10^3/ul (4.8-10.8)
[2016-10-10 06:29] LABS: ALBUMIN 3.4 g/dl (3.3-4.9); POTASSIUM 3.9 mmol/L (3.5-5.1)
[2016-10-10 06:31] LABS: CREATININE 0.64 mg/dl (0.61-1.24)
[2016-10-10 06:32] LABS: BILIRUBIN,INDIRECT 0.3 mg/dl (0-1.1); BILIRUBIN,TOTAL 0.3 mg/dl (0.2-1.3); CALCIUM 8.2 mg/dl (8.4-10.2); TOTAL PROTEIN 6.8 g/dl (6.1-8.1)
[2016-10-10 07:36] VITALS: BP 110/65; RESP 20
[2016-10-10] MEDS: HYDROCORTISONE 1% 28.35 GM OINT TOP SCH (08:52)
[2016-10-10] MEDS ORDERED: TRAM50TA2 PO (10:24)
[2016-10-10] MEDS ORDERED: PANT40TA3 PO (10:24)
[2016-10-10] MEDS ORDERED: CIPR500T4 PO (10:24)
[2016-10-10] MEDS ORDERED: SUCR1TAB56 PO (10:24)
[2016-10-10] MEDS ORDERED: METR500T14 PO (10:24)
--- NOTE | 2016-10-10 15:17 | PDOCDIS ---
Discharge Instructions DIAGNOSIS Discharge Diagnosis: 1. Abdominal pain secondary to alcoholic hepatitis/ cirrhosis 2. Alcoholism CONDITION Patient Condition: Stable HOME CARE INSTRUCTIONS: Diet Instructions: Low Fat /Cholesterol FOLLOW UP/APPOINTMENTS Appointments 1. Follow-up with her primary care provider within a week OTHER ORDERS: Other Orders: 1. Stop alcohol consumption APURVA BARANRD Oct 10, 2016 15:17
--- NOTE | 2016-10-10 15:23 | DS ---
Date/Time of Note Date/Time of Note DATE: 10/10/16 TIME: 15:19 Discharge Summary Admission/Discharge Info Admit Date/Time Oct 08, 2016 at 09:46 Discharge Date/Time Final Diagnosis 1. Abdominal pain. Likely secondary to alcoholic cirrhosis/suspect pancreatitis 2. History of mesenteric lesion. 3. Alcohol abuse and drug abuse 4. Alcoholic hepatitis. 5. Coagulopathy secondary to #3. 6. Leukocytosis. Patient Condition: Stable Hx of Present Illness This is a 31-year-old male with history of alcoholic abuse and alcoholic pancreatitis as well as coagulopathy secondary to his alcohol abuse, alcoholic hepatitis, mesenteric lesion, who came to [facility] who came to [facility] due to reports of abdominal pain. Patient does report that he still drinks alcohol but to a lesser degree. Of note he was seen with a mesenteric lesion in his previous hospitalization. He was seen by oncologist and did have peripheral blood smear that showed no evidence of malignancy or dysplastic cells. He came to [facility] due to his admission for abdominal pain again. He reported having abdominal pain with nausea and nonbilious nonbloody vomiting for one week duration. Reports having worse abdominal pain with oral consumption. Denies any trauma to this area. He did have gallbladder wall thickening with trace pericholecystic fluid. He was also noted with leukocytosis with WBC at 21.2 remained afebrile. He was again seen with transaminitis. This is likely secondary to his alcohol consumption. Patient also noted with coagulopathy likely due to his underlying liver disease. General surgeon consulted. Currently still reports having some severe abdominal pain. We will evaluate him for the aforementioned issues Hospital Course This is a 31-year-old male with history of alcoholic abuse and alcoholic pancreatitis as well as coagulopathy secondary to his alcohol abuse and alcoholic hepatitis as well as mesenteric lesion who came to [facility] due to reports of abdominal pain. Patient does report he still drinks alcohol but to a lesser degree. He was initially seen prior to this admission with mesenteric lesion from his previous hospitalization but during this admission he did have repeat CT scan of his abdomen as well as consultation by oncologist with noted resolution of his mesenteric lesion. Of note his previous peripheral blood smear showed no evidence of malignancy or dysplastic cells. Patient was again seen by general surgeon over here for his abdominal pain. He did have suspicion of cholecystitis but he did have further HIDA scan which was negative. He was noted with coagulopathy and this is likely secondary to his alcoholism. Patient was advised for all call cessation. He was also advised for drug abuse cessation as well as these were leaving contra beating factors to his abdominal discomfort and current health condition. During his course of stay did improve. He did report less abdominal pain. Patient was likely with some chronic pancreatitis. Emphasis was made on cessation of his drug abuse and alcoholism. The plan of care was discussed with the patient and patient did verbalize understanding. On the day of discharge patient was in stable condition Discussed care with Dr. Zepeda Discharge process time is 40 minutes Disposition: Home Home Meds Active Scripts Metronidazole* (Metronidazole*) 500 Mg Tablet, 500 MG PO Q8, #21 TAB Prov:APURVA BARNARD 10/10/16 Ciprofloxacin Hcl* (Ciprofloxacin Hcl*) 500 Mg Tablet, 500 MG PO BID, #14 TAB Prov:APURVA BARNARD 10/10/16 Pantoprazole* (Protonix*) 40 Mg Tablet.dr 40 MG PO DAILY for 30 Days, TAB Prov:APURVA BARNARD 10/10/16 Sucralfate* (Carafate*) 1 Gm Tab, 1 GM PO QID Y for GASTROINTESTINAL UPSET for 30 Days, TAB Prov:APURVA BARNARD 10/10/16 Hydrocortisone (Hydrocortisone Oi) 28.35 Gm Oint, 28.35 GM TP BID, #1 Prov:JUAN SHEPARD 10/08/16 Naproxen* (Naprosyn*) 500 Mg Tablet, 500 MG PO BID Y for PAIN AND/OR INFLAMMATION, #30 TAB Prov:NURIS MARCELINOC 09/17/16 Tramadol HCl (Tramadol HCl) 50 Mg Tablet, 50 MG PO Q4 Y for PAIN, #20 TAB Prov:NURIS MARCELINOC 09/17/16 Famotidine* (Pepcid*) 20 Mg Tablet, 20 MG PO BID for 14 Days, TAB Prov:NURIS MARCELINOC 06/02/16 Ondansetron Hcl* (Zofran*) 4 Mg Tablet, 4 MG PO Q6H for NAUSEA AND/OR VOMITING, #30 TAB Prov:NURIS MARCELINOC 06/02/16 Ranitidine Hcl* (Zantac*) 150 Mg Tablet, 150 MG PO BID, #60 TAB Prov:RIVKA RODRIGUEZ DO 05/22/16 Ciprofloxacin Hcl* (Ciprofloxacin Hcl*) 500 Mg Tablet, 500 MG PO BID for 7 Days , TAB Prov:RIVKA RODRIGUEZ DO 05/22/16 Follow-up Plan CONDITION Patient Condition: Stable HOME CARE INSTRUCTIONS: Diet Instructions: Low Fat /Cholesterol FOLLOW UP/APPOINTMENTS Appointments 1. Follow-up with her primary care provider within a week OTHER ORDERS: Other Orders: 1. Stop alcohol consumption Pending Labs Laboratory Tests Test 10/10/16 05:20 Alanine Aminotransferase (ALT/SGPT) 43IU/L (13-69) Albumin 3.4g/dl (3.3-4.9) Albumin/Globulin Ratio 1.00 Alkaline Phosphatase 335IU/L (42-121) Anion Gap 17 (8-16) Aspartate Amino Transf (AST/SGOT) 102IU/L (15-46) Basophils # 0.110^3/ul (0.0-0.1) Basophils % 0.5% (0.0-2.0) Blood Urea Nitrogen 7mg/dl (7-20) Calcium Level 8.2mg/dl (8.4-10.2) Carbon Dioxide Level 24mmol/L (21-31) Chloride Level 100mmol/L (97-110) Creatinine 0.64mg/dl (0.61-1.24) Direct Bilirubin 0.00mg/dl (0.00-0.20) Eosinophils # 0.710^3/ul (0.0-0.5) Eosinophils % 4.2% (0.0-7.0) Globulin 3.40g/dl (1.3-3.2) Glucose Level 122mg/dl (70-220) Hematocrit 42.4% (42.0-52.0) Hemoglobin 13.9g/dl (14.0-18.0) Indirect Bilirubin 0.3mg/dl (0-1.1) Lymphocytes # 1.510^3/ul (0.8-2.9) Lymphocytes % 8.2% (15.0-51.0) Mean Corpuscular Hemoglobin 32.9pg (29.0-33.0) Mean Corpuscular Hemoglobin Concent 32.8g/dl (32.0-37.0) Mean Corpuscular Volume 100.5fl (82.0-101.0) Mean Platelet Volume 12.0fl (7.4-10.4) Monocytes # 0.810^3/ul (0.3-0.9) Monocytes % 4.4% (0.0-11.0) Neutrophils # 14.610^3/ul (1.6-7.5) Neutrophils % 82.1% (39.0-77.0) Nucleated Red Blood Cells # 0.010^3/ul (0.0-0.0) Nucleated Red Blood Cells % 0.0/100WBC (0.0-0.0) Platelet Count 87793^3/UL (140-415) Potassium Level 3.9mmol/L (3.5-5.1) Red Blood Count 4.2210^6/ul (4.70-6.10) Red Cell Distribution Width 14.9% (11.5-14.5) Sodium Level 137mmol/L (135-144) Total Bilirubin 0.3mg/dl (0.2-1.3) Total Protein 6.8g/dl (6.1-8.1) White Blood Count 17.810^3/ul (4.8-10.8) APURVA BARNARD Oct 10, 2016 15:23
--- NOTE | 2016-10-10 23:20 | PN ---
Date/Time of Note Date/Time of Note DATE: 10/10/16 TIME: 23:19 Assessment/Plan Lines/Catheters IV Catheter Type (from [facility]): Saline Lock Valadez in Place (from [facility]): No Assessment/Plan Chief Complaint/Hosp Course 1. Abdominal pain, probably secondary to alcoholic hepatitis/cirrhosis, maybe pancreatitis. Not cholecystitis (negative HIDA). Questionable mesenteric mass resolved on current CT (?previous enlarged LN). -medical followup -no surgery at this time -encourage medical compliance 2. Alcoholism with alcoholic hepatitis and cirrhosis and pancreatitis. -I highly recommend patient to stop alcohol and drug abuse and follow up in rehabilitation to improve his overall health status. 3. Multidrug abuse. Once again highly recommend followup with rehabilitation. 4. Coagulopathy secondary to liver disease. Continue medical optimization. 5. Abnormal LFTs and elevated alkaline phosphatase secondary to above. 6. Leukocytosis, chronic with leukemoid versus inflammatory versus infectious process. Continue antibiotics and defer to hematology/oncology for further workup. 7. History of mesenteric mass but clear on current CT, ? enlarged LN that has resolved. Thank you, Late entry Problems: Subjective 24 Hr Interval Summary No f/c. Min pain. No n/v. No cp/sob. No cough. No feliz/dizzy/visual or neuro changes. No dysuria. Bowel function. Exam/Review of Systems Vital Signs Vitals Vital Signs Date Time Temp Pulse Resp B/P Pulse Ox O2 Delivery O2 Flow Rate FiO2 10/10/16 07:36 97.6 54 20 110/65 99 10/09/16 20:00 Room Air Intake and Output 10/09/16 10/09/16 10/10/16 15:00 23:00 07:00 Intake Total 100 ml 2360 ml 2370 ml Output Total 3 ml Balance 100 ml 2357 ml 2370 ml Exam Free Text/Dictation GENERAL: No acute distress, comfortable. HEENT: Pupils equal, reactive. No scleral icterus. Mucous membranes are moist. NECK: Supple, no crepitus, no JVD. Trachea midline. PULMONARY: Normal respiratory effort. No wheezing. CARDIAC: S1, S2 present. ABDOMEN: Minimally tender in the epigastric. Negative Whipple's. No rebound , no guarding, not rigid. EXTREMITIES: No edema. VASCULAR: Cap refill less than 2 seconds. NEUROLOGIC: Alert, oriented, moves all 4 extremities grossly. Results Result Diagram: 10/10/16 0520 10/10/16 0520 CHRIS RICHARDS MD Oct 10, 2016 23:20
== END 2016-10-10 16:20 | disposition home or self-care (01) | DRG 432 ==
LOC: FTE 07:33 → MS2 09:46
PROVIDERS: ADMIT Hospitalist; ATTEND Hospitalist
DX: K70.30 Alcoholic cirrhosis of liver without ascites (principal); K85.90 Acute pancreatitis without necrosis or infection, unspecified; K70.10 Alcoholic hepatitis without ascites; K65.9 Peritonitis, unspecified; D68.9 Coagulation defect, unspecified; D72.829 Elevated white blood cell count, unspecified; F10.20 Alcohol dependence, uncomplicated; F19.10 Other psychoactive substance abuse, uncomplicated
CPT/HCPCS: 71010; 74177; 76705; 78226; 80053; 80061; 81001; 81003; 82150; 83036; 83690; 83735; 84100; 84436; 84443; 84479; 85025; 85651; 86140; 87040; 87086; 90686; 96365; 96375; 96376; A9537; C9113; J1170; J2270; J2405; J2543; J7030; Q9967

== ENCOUNTER 2016-10-20 09:39 | Inpatient (IN) | payer OTHER ==
[~2016-10-20] VITALS: Ht 172.7 cm; Wt 83.0 kg
[~2016-10-20 09:39] MED LIST changes: -FAMO-18 PO; +HYDR28.336 TP; +METR500T14 PO; +PANT40TA3 PO; +SUCR1TAB56 PO
[2016-10-20 09:56] VITALS: Ht 172.7 cm; Wt 83.0 kg
[2016-10-20 09:57] VITALS: BP 109/66; PULSE 76; RESP 18
[2016-10-20] MEDS ORDERED: SUCRALFATE 1 GM TAB PO PRN (11:00)
[2016-10-20] MEDS ORDERED: ONDANSETRON 4 MG INJ IV PRN (11:00)
[2016-10-20] MEDS ORDERED: traMADol 50 MG TAB PO PRN (11:00)
[2016-10-20] MEDS ORDERED: NACL 0.9% 3 ML SYG IV SCH (11:00)
[2016-10-20] MEDS ORDERED: DOCUSATE SODIUM 100 MG CAP PO PRN (11:00)
[2016-10-20] MEDS ORDERED: ACETAMINOPHEN 325 MG TAB PO PRN (11:00)
[2016-10-20] MEDS ORDERED: HYDROCODONE/APAP (5/325) TAB PO PRN (11:00)
[2016-10-20] MEDS: morphine 2 MG INJ IV PRN ×3 (11:42→20:37)
[2016-10-20] MEDS: D5W-0.45 NACL + KCL 20 MEQ 1,000 ML IV SCH (11:45)
[2016-10-20] MEDS ORDERED: CIPROFLOXACIN 500 MG TAB PO SCH (12:00)
[2016-10-20] MEDS: HYDROCORTISONE 1% 28.35 GM OINT TOP SCH ×2 (13:07→20:37)
[2016-10-20] MEDS: metroNIDAZOLE 500 MG TAB PO SCH ×2 (13:10→22:05)
[2016-10-20] MEDS: FOLIC ACID 1 MG TAB PO SCH (15:43)
[2016-10-20] MEDS: THIAMINE 100 MG TAB PO SCH (15:43)
--- NOTE | 2016-10-20 15:45 | HP ---
DATE OF ADMISSION: 10/20/2016 PRODUCTION SUPPORT DEVELOPER: Bit Setter. CHIEF COMPLAINT: Abdominal pain. HISTORY OF PRESENT ILLNESS: This is a 31-year-old gentleman with past medical history of chronic pa ncreatitis, history of fall and rib injury, history of alcoholic pancreatitis, pancreatic cyst, who had 4 to 5 drinks this weekend and started having abdominal discomfort, and [facility] he was diagnosed with acute chronic pancreatitis and leukocytosis, and was transferred to [facility] secondary to insurance purposes. At this time, patient denies having a ny chest pain, shortness of breath, nausea, vomiting, diarrhea. No headache, dizziness, lightheaded ness. No change in visual acuity, diplopia, photophobia. Minimal abdominal pain. No change in the color of stool or any other discomfort. PAST MEDICAL AND SURGICAL HISTORY: As above per HPI. MEDICATIONS: 1. Cipro. 2. Hydrocortisone. 3. Flagyl. 4. Naproxen. 5. Zofran. 6. Protonix. 7. Ranitidine. 8. Sucralfate. 9. Tramadol. ALLERGIES: SHELLFISH. SOCIAL HISTORY: Positive for history of alcohol abuse and smoking cigarettes. No illicit drugs. REVIEW OF SYSTEMS: As above per HPI. Otherwise, 12 review of systems has been found to be negative . PHYSICAL EXAMINATION: VITAL SIGNS: Temperature 99, pulse 76, respiration 18, blood pressure 109/66, oxygen saturation 95% on room air. GENERAL APPEARANCE: Patient is lying in bed comfortably without any distress. He is awake, alert, oriented. He is able to answer my questions properly. EYES AND ENT: Conjunctivae and lids are normal. Pupils are normal. Extraocular normal. Hearing g rossly normal. Lips and tongue normal. Oral mucosa is dry. NECK: Supple. Trachea is midline. No lymphadenopathy. RESPIRATORY: Effort is normal. Clear to auscultation bilaterally. CARDIOVASCULAR: Normal S1, S2. Regular rhythm and rate. No murmur, no bruits, no edema. Peripher al pulses, radial pulses palpable. Cap refill is normal. CHEST: Normal expansion of thorax during inspiration. GASTROINTESTINAL: Abdomen is soft, although tender in the epigastric region. No guarding, no rebou nd. GENITOURINARY: Deferred. MUSCULOSKELETAL: Upper and lower extremities within normal limits. Full range of motion. NEUROLOGIC: Cranial nerves II through XII are grossly intact. PSYCHIATRIC: Normal judgment and insight. Alert and oriented x3. Mood and affect is normal. LABORATORY WORK: WBC 23.7, hemoglobin 15.1, hematocrit 45.8, platelet 192. PT 15.5, INR 1.26. Sod ium 137, potassium 3.8, chloride 101, bicarbonate 21, BUN 5, creatinine 0.60, GFR 136, alkaline phos phatase 527, AST 18, ALT 60, total bilirubin 1.0. Lactate 1.7. ASSESSMENT AND PLAN: 1. Acute on chronic pancreatitis, likely secondary to continuous alcohol consumption. Patient will be made n.p.o., IV fluid, pain medication has been initiated. 2. History of alcoholism with current use of alcohol. The patient has been started on folic acid. Multivitamin. Education was provided. 3. Chronic leukocytosis. The patient has been evaluated by hematology/oncology as outpatient. 4. Gastroesophageal reflux disease. Continue proton pump inhibitor. 5. History of gastrointestinal bleed. Continue proton pump inhibitor. 6. For deep venous thrombosis prophylaxis, on sequential compression devices. 7. Gastrointestinal prophylaxis, on proton pump inhibitor. . 8. Will continue to monitor patient closely. Further recommendation, management, course. Time spent for evaluation of patient and admission workup: 40 minutes. Dictated By: HAMILTON NOBLE/GREER Conf#: [id number] DID#: [id number]
[2016-10-20] MEDS: CIPROFLOXACIN 400MG/D5W 200 ML IVPB SCH (20:37)
[2016-10-20 21:52] VITALS: BP 106/66; RESP 20
[2016-10-21] MEDS: D5W-0.45 NACL + KCL 20 MEQ 1,000 ML IV SCH ×3 (00:18→20:02)
[2016-10-21] MEDS: morphine 2 MG INJ IV PRN ×5 (02:09→22:46)
[2016-10-21 05:38] LABS: ADD SCAN DIFF NO
[2016-10-21 05:42] LABS: BASOPHIL # 0.1 10^3/ul (0.0-0.1); BASOPHILS % 0.7 % (0.0-2.0); EOSINOPHILS % 5.4 % (0.0-7.0); HEMATOCRIT 43.9 % (42.0-52.0); HEMOGLOBIN 14.4 g/dl (14.0-18.0); LYMPHOCYTES # 1.4 10^3/ul (0.8-2.9); LYMPHOCYTES % 7.4 % (15.0-51.0); MEAN CORPUSCULAR HGB CONC 32.8 g/dl (32.0-37.0); MEAN CORPUSCULAR VOLUME 100.5 fl (82.0-101.0); MEAN PLATELET VOLUME 11.8 fl (7.4-10.4); MONOCYTE # 0.9 10^3/ul (0.3-0.9); MONOCYTES % 4.8 % (0.0-11.0); NEUTROPHIL # 14.8 10^3/ul (1.6-7.5); PLATELET COUNT 143 10^3/UL (140-415); RED BLOOD COUNT 4.37 10^6/ul (4.70-6.10); RED CELL DISTRIBUTION WIDTH 14.6 % (11.5-14.5); WHITE BLOOD COUNT 18.3 10^3/ul (4.8-10.8)
[2016-10-21] MEDS: metroNIDAZOLE 500 MG TAB PO SCH ×3 (05:45→21:47)
[2016-10-21] MEDS: PANTOPRAZOLE (EC) 40 MG TAB PO SCH (05:45)
[2016-10-21 05:56] LABS: ALBUMIN 3.7 g/dl (3.3-4.9)
[2016-10-21 05:57] LABS: POTASSIUM 3.6 mmol/L (3.5-5.1)
[2016-10-21 05:59] LABS: ALBUMIN/GLOBULIN RATIO 0.9; BILIRUBIN,INDIRECT 0.7 mg/dl (0-1.1); BILIRUBIN,TOTAL 0.7 mg/dl (0.2-1.3); CREATININE 0.57 mg/dl (0.61-1.24); TOTAL PROTEIN 7.8 g/dl (6.1-8.1)
[2016-10-21 06:00] LABS: CALCIUM 8.7 mg/dl (8.4-10.2); MAGNESIUM 1.8 mg/dl (1.7-2.5)
[2016-10-21 08:01] VITALS: BP 113/68; RESP 20
[2016-10-21] MEDS: HYDROCORTISONE 1% 28.35 GM OINT TOP SCH ×2 (10:03→20:02)
[2016-10-21] MEDS: MULTIVITAMINS THERAPEUTIC TAB PO SCH (10:03)
[2016-10-21] MEDS: THIAMINE 100 MG TAB PO SCH (10:03)
[2016-10-21] MEDS: CIPROFLOXACIN 400MG/D5W 200 ML IVPB SCH ×2 (10:04→20:02)
[2016-10-21] MEDS: FOLIC ACID 1 MG TAB PO SCH (10:04)
--- NOTE | 2016-10-21 12:51 | CONS ---
Date/Time of Note Date/Time of Note DATE: 10/21/16 TIME: 12:47 Assessment/Plan Assessment/Plan Additional Assessment/Plan Abdomina pain/nausea/vomiting Pancreatitis Rule out choledocholithiasis IVF Hydration Nausea and pain control NPO till pain free, ok for ice chips Review MRCP ERCP if clinically indicated, pt advised of R/B/A of procedure and she provides informed consent to proceed Monitor LFTs, amylase, lipase May require surgery consult Alcohol abuse Management per Primary Encourage abstinence Banana bag transfusing Further recommendations depend on clinical course Consultation Date/Type/Reason Admit Date/Time Oct 20, 2016 at 09:39 Hx of Present Illness Mr. Errol Oates is a 31-year-old male that was transferred to [facility] secondary to insurance issues for further evaluation of pancreatitis. Patient has a history of heavy alcohol consumption. Patient reports consuming 4-5 drinks over the weekend. He states that diffuse abdominal pain started and also reports a few episodes of nonbloody bilious vomiting as well. Patient denied having fever, chills, diarrhea, melena stools , hematemesis, and sick contacts. Patient also denies any medications. Patient has had several hospitalizations with the earliest dating back to 2014 with similar complaints after drinking alcohol. MRCP in process to rule out choledocholithiasis Past Surgical History Past Surgical Hx: no surgical history Social History Alcohol Use: occasionally Smoking Status: Current every day smoker Exam/Review of Systems Vital Signs Vitals Vital Signs Date Time Temp Pulse Resp B/P Pulse Ox O2 Delivery O2 Flow Rate FiO2 10/21/16 08:01 98.5 68 20 113/68 99 10/20/16 09:57 Room Air Intake and Output 10/20/16 10/20/16 10/21/16 15:00 23:00 07:00 Intake Total 1115 ml 2777 ml Balance 1115 ml 2777 ml Exam Constitutional: alert, oriented, well developed Psych: nl mood/affect Head: normocephalic Eyes: EOMI, nl conjunctiva, nl lids ENMT: nl external ears & nose, nl lips & teeth, nl nasal mucosa & septum Respiratory: clear to auscultation, normal air movement Cardiovascular: regular rate and rhythm Gastrointestinal: soft, epigastric tenderness Musculoskeletal: nl extremities to inspection 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: 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 MACHINE 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 II-XII intact Results Result Diagram: 10/21/16 0423 10/21/16 0453 Results 24 hrs Laboratory Tests Test 10/21/16 04:23 10/21/16 04:53 Basophils # 0.1 Basophils % 0.7 Eosinophils # 1.0 H Eosinophils % 5.4 Hematocrit 43.9 Hemoglobin 14.4 Lymphocytes # 1.4 Lymphocytes % 7.4 L Mean Corpuscular Hemoglobin 33.0 Mean Corpuscular Hemoglobin Concent 32.8 Mean Corpuscular Volume 100.5 Mean Platelet Volume 11.8 H Monocytes # 0.9 Monocytes % 4.8 Neutrophils # 14.8 H Neutrophils % 81.0 H Nucleated Red Blood Cells # 0.0 Nucleated Red Blood Cells % 0.0 Platelet Count 143 Red Blood Count 4.37 L Red Cell Distribution Width 14.6 H White Blood Count 18.3 H Alanine Aminotransferase (ALT/SGPT) 58 Albumin 3.7 Albumin/Globulin Ratio 0.90 Alkaline Phosphatase 439 H Amylase Level 84 Anion Gap 15 Aspartate Amino Transf (AST/SGOT) 139 H Blood Urea Nitrogen 3 L Calcium Level 8.7 Carbon Dioxide Level 28 Chloride Level 98 Creatinine 0.57 L Direct Bilirubin 0.00 Globulin 4.10 H Glucose Level 82 Indirect Bilirubin 0.7 Lipase 460 H Magnesium Level 1.8 Potassium Level 3.6 Sodium Level 137 Total Bilirubin 0.7 Total Protein 7.8 Medications Medications Current Medications Potassium Chloride/Dextrose/ Sod Cl (D5-1/2ns + KCl 20 Meq) 1,000 ml @ 75 mls/ hr [id number] IV Last administered on 10/21/16 02:15; Admin Dose 75 MLS/HR; Start 10/20/16 at 10:58 Ondansetron HCl (Zofran Inj) 4 mg Q6H PRN IV NAUSEA AND/OR VOMITING; Start at 11:00 Acetaminophen (Tylenol Tab) 650 mg Q6H PRN PO PAIN LEVEL 1-3 OR FEVER; Start at 11:00 Acetaminophen/ Hydrocodone Bitart ([place] (5/325)) 1 tab Q6H PRN PO MODERATE PAIN LEVEL 4-6; Start 10/20/16 at 11:00 Morphine Sulfate (morphine) 2 mg Q4H PRN IV SEVERE PAIN LEVEL 7-10 Last administered on 10/21/16 10:04; Admin Dose 2 MG; Start 10/20/16 at 11:00 Docusate Sodium (Colace) 100 mg Q12H PRN PO CONSTIPATION; Start 10/20/16 at 11: 00 Pantoprazole (Protonix Tab) 40 mg DAILY@06 PO Last administered on 10/21/16 05 :45; Admin Dose 40 MG; Start 10/21/16 at 06:00 Hydrocortisone (Hydrocortisone 1% Oint) 1 applic BID TOP Last administered on 10:03; Admin Dose 1 APPLIC; Start 10/20/16 at 12:00 Metronidazole (Flagyl) 500 mg Q8 PO Last administered on 10/21/16 05:45; Admin Dose 500 MG; Start 10/20/16 at 14:00 Sucralfate (Carafate) 1 gm QID PRN PO GASTROINTESTINAL UPSET; Start 10/20/16 at 11:00 Tramadol HCl (Ultram) 50 mg Q6 PRN PO PAIN; Start 10/20/16 at 11:00 Thiamine HCl (Vitamin B1) 100 mg DAILY PO Last administered on 10/21/16 10:03 ; Admin Dose 100 MG; Start 10/20/16 at 15:00 Folic Acid (Folic Acid) 1 mg DAILY PO Last administered on 10/21/16 10:04; Admin Dose 1 MG; Start 10/20/16 at 15:00 Multivitamins Therapeutic 1 tab 1 tab DAILY PO Last administered on 10/21/16 10:03; Admin Dose 1 TAB; Start 10/21/16 at 09:00 Ciprofloxacin/ Dextrose (Cipro Ivpb) 200 ml @ 200 mls/hr Q12 IVPB Last administered on 10/21/16 10:04; Admin Dose 200 MLS/HR; Start 10/20/16 at 21:00 IFTIKHAR GONZALEZ MD Oct 21, 2016 12:51
--- NOTE | 2016-10-21 16:11 | PN ---
Date/Time of Note Date/Time of Note DATE: 10/21/16 TIME: 16:09 Assessment/Plan VTE Prophylaxis VTE Prophylaxis Intervention: SCD's Lines/Catheters IV C[facility]ter Type (from [facility] Peripheral IV Assessment/Plan Chief Complaint/Hosp Course ASSESSMENT AND PLAN: 1. Acute on chronic pancreatitis, likely secondary to continuous alcohol consumption. Patient will be made n.p.o., IV fluid, pain medication has been initiated. Equal Opportunity Officer has been consulted, follow-up MRCP 2. History of alcoholism with current use of alcohol. The patient has been started on folic acid. Multivitamin. Education was provided. 3. Chronic leukocytosis. The patient has been evaluated by hematology/ oncology as outpatient. Continue empiric antibiotics 4. Gastroesophageal reflux disease. Continue proton pump inhibitor. 5. History of gastrointestinal bleed. Continue proton pump inhibitor. 6. For deep venous thrombosis prophylaxis, on sequential compression devices. 7. Gastrointestinal prophylaxis, on proton pump inhibitor. . We will continue monitor patient closely for recommendation management treatment as clinical course Problems: Subjective 24 Hr Interval Summary Free Text/Dictation Patient denies any abdominal pain Denies of having any nausea vomiting diarrhea No chest pain Exam/Review of Systems Vital Signs Vitals Vital Signs Date Time Temp Pulse Resp B/P Pulse Ox O2 Delivery O2 Flow Rate FiO2 10/21/16 08:01 98.5 68 20 113/68 99 10/20/16 09:57 Room Air Intake and Output 10/20/16 10/20/16 10/21/16 15:00 23:00 07:00 Intake Total 1115 ml 2777 ml Balance 1115 ml 2777 ml Exam General: The patient is well-developed, Not in acute distress. HEENT: Atraumatic, normocephalic. The pupils are equal and round . Neck: Supple with full range of motion. Chest: Normal expansion of the thorax during inspiration Lungs: Clear to auscultation bilaterally Heart: Normal S1-S2, Regular rhythm and rate. Abdomen: Soft , nontender, nondistended , bowel sounds are present. Extremities: Normal to inspection, no edema no cyanosis Neurologic: Normal mental status,The patient is awake, alert and oriented . Results Result Diagram: 10/21/16 0423 10/21/16 0453 Results 24 hrs Laboratory Tests Test 10/21/16 04:23 10/21/16 04:53 Basophils # 0.1 Basophils % 0.7 Eosinophils # 1.0 H Eosinophils % 5.4 Hematocrit 43.9 Hemoglobin 14.4 Lymphocytes # 1.4 Lymphocytes % 7.4 L Mean Corpuscular Hemoglobin 33.0 Mean Corpuscular Hemoglobin Concent 32.8 Mean Corpuscular Volume 100.5 Mean Platelet Volume 11.8 H Monocytes # 0.9 Monocytes % 4.8 Neutrophils # 14.8 H Neutrophils % 81.0 H Nucleated Red Blood Cells # 0.0 Nucleated Red Blood Cells % 0.0 Platelet Count 143 Red Blood Count 4.37 L Red Cell Distribution Width 14.6 H White Blood Count 18.3 H Alanine Aminotransferase (ALT/SGPT) 58 Albumin 3.7 Albumin/Globulin Ratio 0.90 Alkaline Phosphatase 439 H Amylase Level 84 Anion Gap 15 Aspartate Amino Transf (AST/SGOT) 139 H Blood Urea Nitrogen 3 L Calcium Level 8.7 Carbon Dioxide Level 28 Chloride Level 98 Creatinine 0.57 L Direct Bilirubin 0.00 Globulin 4.10 H Glucose Level 82 Indirect Bilirubin 0.7 Lipase 460 H Magnesium Level 1.8 Potassium Level 3.6 Sodium Level 137 Total Bilirubin 0.7 Total Protein 7.8 Medications Medications Current Medications Potassium Chloride/Dextrose/ Sod Cl (D5-1/2ns + KCl 20 Meq) 1,000 ml @ 75 mls/ hr [id number] IV Last administered on 10/21/16 02:15; Admin Dose 75 MLS/HR; Start 10/20/16 at 10:58 Ondansetron HCl (Zofran Inj) 4 mg Q6H PRN IV NAUSEA AND/OR VOMITING; Start at 11:00 Acetaminophen (Tylenol Tab) 650 mg Q6H PRN PO PAIN LEVEL 1-3 OR FEVER; Start at 11:00 Acetaminophen/ Hydrocodone Bitart ([place] (5/325)) 1 tab Q6H PRN PO MODERATE PAIN LEVEL 4-6; Start 10/20/16 at 11:00 Morphine Sulfate (morphine) 2 mg Q4H PRN IV SEVERE PAIN LEVEL 7-10 Last administered on 10/21/16 13:33; Admin Dose 2 MG; Start 10/20/16 at 11:00 Docusate Sodium (Colace) 100 mg Q12H PRN PO CONSTIPATION; Start 10/20/16 at 11: 00 Pantoprazole (Protonix Tab) 40 mg DAILY@06 PO Last administered on 10/21/16 05 :45; Admin Dose 40 MG; Start 10/21/16 at 06:00 Hydrocortisone (Hydrocortisone 1% Oint) 1 applic BID TOP Last administered on 10:03; Admin Dose 1 APPLIC; Start 10/20/16 at 12:00 Metronidazole (Flagyl) 500 mg Q8 PO Last administered on 10/21/16 13:33; Admin Dose 500 MG; Start 10/20/16 at 14:00 Sucralfate (Carafate) 1 gm QID PRN PO GASTROINTESTINAL UPSET; Start 10/20/16 at 11:00 Tramadol HCl (Ultram) 50 mg Q6 PRN PO PAIN; Start 10/20/16 at 11:00 Thiamine HCl (Vitamin B1) 100 mg DAILY PO Last administered on 10/21/16 10:03 ; Admin Dose 100 MG; Start 10/20/16 at 15:00 Folic Acid (Folic Acid) 1 mg DAILY PO Last administered on 10/21/16 10:04; Admin Dose 1 MG; Start 10/20/16 at 15:00 Multivitamins Therapeutic 1 tab 1 tab DAILY PO Last administered on 10/21/16 10:03; Admin Dose 1 TAB; Start 10/21/16 at 09:00 Ciprofloxacin/ Dextrose (Cipro Ivpb) 200 ml @ 200 mls/hr Q12 IVPB Last administered on 10/21/16 10:04; Admin Dose 200 MLS/HR; Start 10/20/16 at 21:00 HAMILTON VELAZCO MD Oct 21, 2016 16:11
[2016-10-21 20:00] VITALS: BP 112/71; RESP 18
[2016-10-22] MEDS: D5W-0.45 NACL + KCL 20 MEQ 1,000 ML IV SCH ×2 (02:58→16:18)
[2016-10-22] MEDS: morphine 2 MG INJ IV PRN ×3 (03:29→12:48)
[2016-10-22 05:01] LABS: ADD SCAN DIFF NO
[2016-10-22 05:20] LABS: BASOPHIL # 0.1 10^3/ul (0.0-0.1); BASOPHILS % 0.8 % (0.0-2.0); EOSINOPHILS # 0.8 10^3/ul (0.0-0.5); EOSINOPHILS % 5.7 % (0.0-7.0); HEMATOCRIT 43.1 % (42.0-52.0); HEMOGLOBIN 14.2 g/dl (14.0-18.0); LYMPHOCYTES # 1.6 10^3/ul (0.8-2.9); LYMPHOCYTES % 11.1 % (15.0-51.0); MEAN CORPUSCULAR HEMOGLOBIN 33.1 pg (29.0-33.0); MEAN CORPUSCULAR HGB CONC 32.9 g/dl (32.0-37.0); MEAN CORPUSCULAR VOLUME 100.5 fl (82.0-101.0); MEAN PLATELET VOLUME 11.8 fl (7.4-10.4); MONOCYTE # 0.7 10^3/ul (0.3-0.9); MONOCYTES % 4.9 % (0.0-11.0); NEUTROPHIL # 11.1 10^3/ul (1.6-7.5); NEUTROPHILS % 76.9 % (39.0-77.0); PLATELET COUNT 132 10^3/UL (140-415); RED BLOOD COUNT 4.29 10^6/ul (4.70-6.10); RED CELL DISTRIBUTION WIDTH 14.6 % (11.5-14.5); WHITE BLOOD COUNT 14.4 10^3/ul (4.8-10.8)
[2016-10-22 05:30] LABS: ALBUMIN 3.7 g/dl (3.3-4.9)
[2016-10-22 05:33] LABS: ALBUMIN/GLOBULIN RATIO 0.97; BILIRUBIN,INDIRECT 0.6 mg/dl (0-1.1); BILIRUBIN,TOTAL 0.6 mg/dl (0.2-1.3); CREATININE 0.63 mg/dl (0.61-1.24); TOTAL PROTEIN 7.5 g/dl (6.1-8.1)
[2016-10-22] MEDS: metroNIDAZOLE 500 MG TAB PO SCH ×2 (05:47→15:47)
[2016-10-22] MEDS: PANTOPRAZOLE (EC) 40 MG TAB PO SCH (05:47)
[2016-10-22 08:03] VITALS: BP 126/79; RESP 20
--- NOTE | 2016-10-22 08:24 | RADRPT ---
PROCEDURE: MRCP without contrast. CLINICAL INDICATION: Right upper quadrant abdominal pain. TECHNIQUE: Routine MRCP was obtained without the administration of intravenous contrast. COMPARISON: CT, 10/09/2016. FINDINGS: There is nonspecific mild diffuse gallbladder wall thickening without discrete filling defect to sug gest cholelithiasis. No intra- or extra-hepatic biliary dilatation is identified. There is no fill ing defect or choledocholithiasis. There is no biliary stricture. The pancreatic duct is within normal limits. Liver is enlarged measuring 22 cm in craniocaudal length. Spleen is enlarged measuring 13.9 cm in craniocaudal length. Multiple nonspecific subcentimeter jennyfer caval and aortocaval/para-aortic retroperitoneal lymph node s. IMPRESSION: Nonspecific gallbladder wall thickening without calculus. No biliary dilatation, choledocholithiasis, or biliary obstruction. Hepatosplenomegaly. RPTAT: EE .Fabián Jin MD, Date Time Electronically viewed and signed by .Fabián Jin MD, on 10/22/2016 08:28 .C/
[2016-10-22] MEDS: FOLIC ACID 1 MG TAB PO SCH (08:26)
[2016-10-22] MEDS: CIPROFLOXACIN 400MG/D5W 200 ML IVPB SCH (08:26)
[2016-10-22] MEDS: THIAMINE 100 MG TAB PO SCH (08:26)
[2016-10-22] MEDS: HYDROCORTISONE 1% 28.35 GM OINT TOP SCH (08:27)
[2016-10-22] MEDS: MULTIVITAMINS THERAPEUTIC TAB PO SCH (08:29)
--- NOTE | 2016-10-22 11:31 | CONS ---
Date/Time of Note Date/Time of Note DATE: 10/22/16 TIME: 11:29 Assessment/Plan Assessment/Plan Additional Assessment/Plan Abdomina pain/nausea/vomiting Pancreatitis Rule out choledocholithiasis IVF Hydration Nausea and pain control NPO till pain free, ok for ice chips Review MRCP ERCP if clinically indicated, pt advised of R/B/A of procedure and she provides informed consent to proceed Monitor LFTs, amylase, lipase May require surgery consult Alcohol abuse Management per Primary Encourage abstinence Banana bag transfusing Further recommendations depend on clinical course Consultation Date/Type/Reason Admit Date/Time Oct 20, 2016 at 09:39 Initial Consult Date 24 HR Interval Summary Free Text/Dictation Lipase within normal limits MRCP negative Okay to start regular diet Denies abdominal pain, nausea, vomiting Exam/Review of Systems Vital Signs Vitals Vital Signs Date Time Temp Pulse Resp B/P Pulse Ox O2 Delivery O2 Flow Rate FiO2 10/22/16 08:03 97.4 59 20 126/79 100 10/20/16 09:57 Room Air Intake and Output 10/21/16 10/21/16 10/22/16 14:59 22:59 06:59 Intake Total 200 ml 1240 ml 900 ml Balance 200 ml 1240 ml 900 ml Exam Constitutional: alert, oriented, well developed Psych: nl mood/affect Head: normocephalic Eyes: EOMI, nl conjunctiva, nl lids ENMT: nl external ears & nose, nl lips & teeth, nl nasal mucosa & septum Respiratory: clear to auscultation, normal air movement Cardiovascular: regular rate and rhythm Gastrointestinal: soft, slight epigastric tenderness Musculoskeletal: nl extremities to inspection 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: REGIONAL SALES LEADER II-XII intact Results Result Diagram: 10/22/16 0425 10/22/16 0425 Results 24 hrs Laboratory Tests Test 10/21/16 13:30 10/22/16 04:25 Stool Occult Blood NEGATIVE Alanine Aminotransferase (ALT/SGPT) 66 Albumin 3.7 Albumin/Globulin Ratio 0.97 Alkaline Phosphatase 411 H Anion Gap 16 Aspartate Amino Transf (AST/SGOT) 161 H Basophils # 0.1 Basophils % 0.8 Blood Urea Nitrogen 3 L Calcium Level 9.0 Carbon Dioxide Level 26 Chloride Level 101 Creatinine 0.63 Direct Bilirubin 0.00 Eosinophils # 0.8 H Eosinophils % 5.7 Globulin 3.80 H Glucose Level 87 Hematocrit 43.1 Hemoglobin 14.2 Indirect Bilirubin 0.6 Lipase 245 Lymphocytes # 1.6 Lymphocytes % 11.1 L Mean Corpuscular Hemoglobin 33.1 H Mean Corpuscular Hemoglobin Concent 32.9 Mean Corpuscular Volume 100.5 Mean Platelet Volume 11.8 H Monocytes # 0.7 Monocytes % 4.9 Neutrophils # 11.1 H Neutrophils % 76.9 Nucleated Red Blood Cells # 0.0 Nucleated Red Blood Cells % 0.0 Platelet Count 132 L Potassium Level 4.0 Red Blood Count 4.29 L Red Cell Distribution Width 14.6 H Sodium Level 139 Total Bilirubin 0.6 Total Protein 7.5 White Blood Count 14.4 #H Medications Medications Current Medications Potassium Chloride/Dextrose/ Sod Cl (D5-1/2ns + KCl 20 Meq) 1,000 ml @ 75 mls/ hr [id number] IV Last administered on 10/21/16 20:02; Admin Dose 75 MLS/HR; Start 10/20/16 at 10:58 Ondansetron HCl (Zofran Inj) 4 mg Q6H PRN IV NAUSEA AND/OR VOMITING; Start at 11:00 Acetaminophen (Tylenol Tab) 650 mg Q6H PRN PO PAIN LEVEL 1-3 OR FEVER; Start at 11:00 Acetaminophen/ Hydrocodone Bitart ([place] (5/325)) 1 tab Q6H PRN PO MODERATE PAIN LEVEL 4-6; Start 10/20/16 at 11:00 Morphine Sulfate (morphine) 2 mg Q4H PRN IV SEVERE PAIN LEVEL 7-10 Last administered on 10/22/16 08:30; Admin Dose 2 MG; Start 10/20/16 at 11:00 Docusate Sodium (Colace) 100 mg Q12H PRN PO CONSTIPATION; Start 10/20/16 at 11: 00 Pantoprazole (Protonix Tab) 40 mg DAILY@06 PO Last administered on 10/22/16 05 :47; Admin Dose 40 MG; Start 10/21/16 at 06:00 Hydrocortisone (Hydrocortisone 1% Oint) 1 applic BID TOP Last administered on 08:27; Admin Dose 1 APPLIC; Start 10/20/16 at 12:00 Metronidazole (Flagyl) 500 mg Q8 PO Last administered on 10/22/16 05:47; Admin Dose 500 MG; Start 10/20/16 at 14:00 Sucralfate (Carafate) 1 gm QID PRN PO GASTROINTESTINAL UPSET; Start 10/20/16 at 11:00 Tramadol HCl (Ultram) 50 mg Q6 PRN PO PAIN; Start 10/20/16 at 11:00 Thiamine HCl (Vitamin B1) 100 mg DAILY PO Last administered on 10/22/16 08:26 ; Admin Dose 100 MG; Start 10/20/16 at 15:00 Folic Acid (Folic Acid) 1 mg DAILY PO Last administered on 10/22/16 08:26; Admin Dose 1 MG; Start 10/20/16 at 15:00 Multivitamins Therapeutic 1 tab 1 tab DAILY PO Last administered on 10/22/16 08:29; Admin Dose 1 TAB; Start 10/21/16 at 09:00 Ciprofloxacin/ Dextrose (Cipro Ivpb) 200 ml @ 200 mls/hr Q12 IVPB Last administered on 10/22/16 08:26; Admin Dose 200 MLS/HR; Start 10/20/16 at 21:00 RIZWANA AQUINO Oct 22, 2016 11:30
--- NOTE | 2016-10-22 14:54 | PDOCDIS ---
Discharge Instructions CONDITION Patient Condition: Good HOME CARE INSTRUCTIONS: Special Diet: soft diet and advance as tolerated ACTIVITY: Activity Restrictions: No Restrictions FOLLOW UP/APPOINTMENTS Appointments Follow up with GI as out-pt Follow up with hematology / Oncology as out-pt HAMILTON VELAZCO MD Oct 22, 2016 14:54
[2016-10-22] MEDS ORDERED: FOLI-49 PO (14:56)
[2016-10-22] MEDS ORDERED: METR500T14 PO (14:56)
[2016-10-22] MEDS ORDERED: CIPR500T4 PO (14:56)
[2016-10-22] MEDS ORDERED: MULTI PO (14:56)
[2016-10-22] MEDS ORDERED: Thiamine PO (14:56)
--- NOTE | 2016-10-22 15:47 | DS ---
DATE OF ADMISSION: 10/20/2016 DATE OF DISCHARGE: 10/22/2016 OUTFITTER CABIN: GI. DIAGNOSES: 1. Acute on chronic pancreatitis, resolved. 2. History of alcoholism, recurrent alcohol abuse. The patient has been started on folic acid, mul tivitamin and thiamine. Education was provided. Drinking cessation was instructed 3. Chronic leukocytosis. The patient has been evaluated by diagnostic imaging manager/oncologist as outpatient. Continue empiric antibiotics. 4. Gastroesophageal reflux disease. Continue proton pump inhibitor. 5. History of gastrointestinal bleed. Continue proton pump inhibitor and sucralfate. 6. Splenomegaly, stable. IMAGING: MRCP which showed nonspecific gallbladder wall thickening without calculus. No biliary di lation, cholelithiasis or biliary obstruction, hepatosplenomegaly. MEDICATIONS: 1. Folic acid. 2. Multivitamin. 3. Thiamine. 4. Ciprofloxacin. 5. Flagyl. 6. Hydrocortisone cream. 7. Zofran 8. Protonix. 9. Rimantadine. 10. Sucralfate. 11. Tramadol. ALLERGIES: SHELLFISH DERIVATIVE. DISPOSITION: Home. DIET: Soft diet and advance as tolerated. LABORATORY: WBC 14.4, hemoglobin 14.3, hematocrit 43.1, platelets 132, MCV 100.5. Sodium 139, pota ssium 4.0, chloride 101, bicarbonate 26, BUN 3, creatinine 0.63, glucose 87. AST 161, ALT 66, alkal ine phosphatase 411, lipase 245. Occult blood negative. HOSPITAL COURSE: This is a pleasant 31-year-old gentleman with past medical history of chronic panc reatitis, history of fall and rib injury, history of alcoholic pancreatitis, pancreatic cyst, histor y of chronic leukocytosis under care of diagnostic imaging manager/oncologist as outpatient on prophylactic antibi otics at home, who presented to [facility] saying having abdominal pain status p ost having 4 to 5 beers this weekend. The patient's abdominal pain was described as mid epigastric, radiating to his back, and was found to have leukocytosis, was transferred to [facility] secondary to insurance purposes. At this time, patient denies having any chest pain, shortn ess of breath, nausea, vomiting, diarrhea. No headache. He was started on IV fluid, pain medicatio n. Coal Sample Tester was consulted. MRI of the abdomen was obtained which showed nonspecific gall bladder wall thickening without calculus. No biliary dilation, cholelithiasis or biliary obstructio n, splenomegaly, patient had occult blood and the stool was found to be negative. The patien t's lipase started to improve significantly status post been made n.p.o. and he was started on a luis m ar liquid diet and has been advanced as tolerated. Today he denies having any chest pain, shortness of breath, abdominal discomfort has improved significantly, and has been able to ambulate without a ny difficulty. He has had bowel movement without any difficulty. Vitals are stable with temperatur e 97.4, pulse 59, respirations 20, blood pressure 126/79, oxygen 100% in room air. CONDITION AT TIME OF DISCHARGE: Stable. Dictated By: HAMILTON NOBLE/GREER Conf#: [id number] DID#: [id number]
== END 2016-10-22 18:37 | disposition home or self-care (01) | DRG 440 ==
LOC: PP2 09:39
PROVIDERS: ADMIT Family Medicine; ATTEND Family Medicine
DX: K85.90 Acute pancreatitis without necrosis or infection, unspecified (principal); R16.1 Splenomegaly, not elsewhere classified; K86.1 Other chronic pancreatitis; F10.10 Alcohol abuse, uncomplicated; D72.829 Elevated white blood cell count, unspecified; K21.9 Gastro-esophageal reflux disease without esophagitis
CPT/HCPCS: 74181; 80053; 82150; 82270; 83690; 83735; 85025; J0744; J2270; J3480

== ENCOUNTER 2017-01-08 12:36 | Inpatient (IN) | payer OTHER ==
[~2017-01-08] VITALS: Ht 172.7 cm; Wt 85.5 kg
[~2017-01-08 12:36] MED LIST changes: +FOLI-49 PO; +MULTI PO; -NAPR-260 PO; +Thiamine PO
[2017-01-08] MEDS ORDERED: SOD CHLORIDE 0.9% 1,000 ML IV STA (14:10)
[2017-01-08] MEDS ORDERED: ONDANSETRON 4 MG INJ IV STA (14:10)
[2017-01-08] MEDS ORDERED: morphine 4 MG/ML VIAL IV STA (14:10)
[2017-01-08 14:33] LABS: ADD SCAN DIFF NO
[2017-01-08 14:34] LABS: ADD UMIC YES; URINE BILIRUBIN (Dip) 3+ (NEGATIVE); URINE BLOOD (Dip) NEGATIVE (NEGATIVE); URINE COLOR AMBER (YELLOW); URINE GLUCOSE (Dip) NEGATIVE (NEGATIVE); URINE KETONES (Dip) NEGATIVE (NEGATIVE); URINE LEUKOCYTE ESTERASE (Dip) NEGATIVE (NEGATIVE); URINE NITRITE (Dip) NEGATIVE (NEGATIVE); URINE TOTAL PROTEIN (Dip) TRACE (NEGATIVE); URINE UROBILINOGEN (Dip) 0.2 E.U./dL (0.1-1.0)
[2017-01-08 14:35] LABS: ABNORMAL IP MESSAGE 1; HEMATOCRIT 38.8 % (42.0-52.0); HEMOGLOBIN 13.7 g/dl (14.0-18.0); MEAN CORPUSCULAR HEMOGLOBIN 34.2 pg (29.0-33.0); MEAN CORPUSCULAR HGB CONC 35.3 g/dl (32.0-37.0); MEAN CORPUSCULAR VOLUME 96.8 fl (82.0-101.0); MEAN PLATELET VOLUME 11.1 fl (7.4-10.4); PLATELET COUNT 229 10^3/UL (140-415); RED BLOOD COUNT 4.01 10^6/ul (4.70-6.10); RED CELL DISTRIBUTION WIDTH 16.3 % (11.5-14.5)
[2017-01-08 14:54] LABS: BACTERIA,URINE RARE; ICTOTEST POSITIVE (NEGATIVE); URINE RBCS 0-2 /HPF (0)
[2017-01-08 14:56] LABS: ALBUMIN 4.4 g/dl (3.3-4.9); ALBUMIN/GLOBULIN RATIO 1.1; BILIRUBIN,DIRECT 5.5 mg/dl (0.00-0.20); BILIRUBIN,INDIRECT 1.5 mg/dl (0-1.1); CALCIUM 8.8 mg/dl (8.4-10.2); CREATININE 0.43 mg/dl (0.61-1.24); POTASSIUM 3.7 mmol/L (3.5-5.1); TOTAL PROTEIN 8.4 g/dl (6.1-8.1)
[2017-01-08] MEDS ORDERED: HYDROmorphONE 1 MG/ML SYG IV STA (15:34)
--- NOTE | 2017-01-08 16:23 | RADRPT ---
PROCEDURE: CT Abdomen and Pelvis without contrast. CLINICAL INDICATION: Abdominal pain with vomiting. History of pancreatitis. TECHNIQUE: CT scan of the abdomen and pelvis without contrast was performed on a multidetector hig h-resolution CT scanner. The patient was scanned without intravenous contrast. Coronal and sagittal reformatted images were obtained from the axial source images. Images were reviewed on a high-resol [employer] PACS workstation. The total exam CTDI equals 16.73 mGy and the total exam DLP equals 1033.83 m Gy-cm. One or more of the following dose reduction techniques were used: Automated exposure control. Adjustment of the mA and/or kV according to patient size. Use of iterative reconstruction technique. COMPARISON: CT abdomen and pelvis 10/09/2016. CT abdomen and pelvis 03/27/2016 FINDINGS: CT abdomen: The lung bases are clear. The heart size is normal, without pericardial thickening or effusion. There is markedly enlarged liver with fatty infiltration. There is moderate splenomegaly. The stom ach is partially collapsed, but is grossly unremarkable. There is mild enlargement of the pancreatic head with surrounding inflammatory changes suggesting ac brea pancreatitis. Curvilinear calcifications are seen along the anterior aspect of the pancreas ext ending into the anterior pararenal space. There is partially calcified nodular structure in the gas trocolic ligament abutting the transverse colon measuring approximately 2.7 cm on image 3 - 84, not significantly changed. There is mild mesenteric fatty infiltration with multiple mildly enlarged me senteric lymph nodes, not significantly changed. There is somewhat contracted gallbladder with diffuse wall thickening of the gallbladder. There is no biliary ductal dilatation. The adrenal glands are symmetric and normal. The kidneys are symmetrically unremarkable as well. N o renal calculus or obstructive uropathy or mass lesion is seen. The aorta is of normal caliber. There is no retroperitoneal lymphadenopathy. The jennyfer hepatis reg ion is clear. The bowel and mesentery, as visualized, are equally unremarkable. CT pelvis: The small bowel loops situated within the pelvis are unremarkable. There is a normal appendix. The p elvic organs are normal. The pelvic sidewalls and inguinal regions are clear. The sigmoid colon an d rectum are unremarkable. No mass, lymphadenopathy, or free fluid is seen. No acute inflammation is seen. No osteolytic or osteoblastic lesion is detected. IMPRESSION: 1. Mild enlargement of the pancreatic head with surrounding inflammatory changes suggesting acute pa ncreatitis. No peripancreatic fluid collection is identified. 2. Stable appearance of curvilinear calcifications along the tail of the pancreas and anterior parar enal space. Stable nodular partially calcified structure in the gastrocolic ligament likely represe nting fat necrosis. 3. Markedly enlarged fatty liver. 4. Moderate splenomegaly. 5. Stable mild fatty infiltration in the root of the mesentery with mildly enlarged multiple lymph n odes. RPTAT: BB .Honorio Gomez MD, MD Date Time Electronically viewed and signed by .Honorio Gomez MD, on 01/08/2017 16:23 .O/
[2017-01-08 16:27] LABS: BASOPHIL # 0.3 10^3/ul (0.0-0.1); LYMPHOCYTES # 1.3 10^3/ul (0.8-2.9); MONOCYTE # 1.3 10^3/ul (0.3-0.9); NEUTROPHIL # 22.1 10^3/ul (1.6-7.5)
[2017-01-08 16:29] LABS: PLATELET ESTIMATE PLT APPEAR ADEQUATE
--- NOTE | 2017-01-08 16:45 | ERD ---
ER Documentation Chief Complaint Date/Time DATE: 01/08/17 TIME: 16:43 Chief Complaint VOMITING X3 DAYS, ABD PAIN HPI This is a 31-year-old male presents to the ER with abdominal pain for the last 4 days. Abdominal pain is located all over his abdomen is severe and constant. He describes pain as sharp. Patient has a past medical history of pancreatitis. He has had nonbilious nonbloody vomiting every single time he eats. Patient drinks about 100 ounces of beer every day for the last 6 years however stopped 4 days ago when he began to have abdominal pain. Patient denies any fevers or chills. He denies any diarrhea. He denies any constipation. ROS 12 point review of systems was done, all negative except per HPI. Medications Home Meds Active Scripts [Thiamine] 100 MG TAB No Conflict Check, 100 MG PO DAILY, #30 Prov:HAMILTON VELAZCO MD 10/22/16 Multivitamins* (Theragran*) 1 Tab Tab, 1 TAB PO DAILY, #30 TAB Prov:HAMILTON VELAZCO MD 10/22/16 Folic Acid* (Folic Acid*) 1 Mg Tablet, 1 MG PO DAILY, #30 TAB Prov:HAMILTON VELAZCO MD 10/22/16 Metronidazole* (Metronidazole*) 500 Mg Tablet, 500 MG PO Q8, #21 TAB Prov:HAMILTON VELAZCO MD 10/22/16 Ciprofloxacin Hcl* (Ciprofloxacin Hcl*) 500 Mg Tablet, 500 MG PO BID, #14 TAB Prov:HAMILTON VELAZCO MD 10/22/16 Pantoprazole* (Protonix*) 40 Mg Tablet.dr, 40 MG PO DAILY for 30 Days, TAB Prov:APURVA BARNARD 10/10/16 Sucralfate* (Carafate*) 1 Gm Tab, 1 GM PO QID Y for GASTROINTESTINAL UPSET for 30 Days, TAB Prov:APURVA BARNARD 10/10/16 Tramadol HCl (Tramadol HCl) 50 Mg Tablet, 50 MG PO Q6 Y for PAIN, #30 TAB Prov:APURVA BARNARD 10/10/16 Hydrocortisone (Hydrocortisone Oi) 28.35 Gm Oint, 28.35 GM TP BID, #1 Prov:JUAN SHEPARD 10/08/16 Ondansetron Hcl* (Zofran*) 4 Mg Tablet, 4 MG PO Q6H for NAUSEA AND/OR VOMITING, #30 TAB Prov:NURIS MARCELINO PA-C 06/02/16 Ranitidine Hcl* (Zantac*) 150 Mg Tablet, 150 MG PO BID, #60 TAB Prov:RIVKA RODRIGUEZ DO 05/22/16 Allergies Allergies: Coded Allergies: shellfish derived (Verified Allergy, Unknown, RASH, ITCHINESS, 06/02/16) PMhx/Soc History of Surgery: No Anesthesia Reaction: No Hx 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 Disorder: No Hx Respiratory Disorders: Yes Hx Cardiac Disorders: Yes Hx Psychiatric Problems: No Hx Miscellaneous Medical Probl: Yes (hx pancreatitis) Hx Alcohol Use: Yes Hx Substance Use: Yes (coccaine month ago) Hx Tobacco Use: Yes (1/2 pk/day) Smoking Status: Current every day smoker Physical Exam Vitals Vital Signs Date Time Temp Pulse Resp B/P Pulse Ox O2 Delivery O2 Flow Rate FiO2 01/08/17 12:39 98.5 113 17 126/66 97 Physical Exam GENERAL: The patient is well developed and appropriate for usual state of health , in no apparent distress. HEENT: Atraumatic. CHEST: Clear to auscultation bilaterally. There are no rales, wheezes or rhonchi. HEART: Regular rate and rhythm. No murmurs, clicks, rubs or gallops. ABDOMEN:TTP in the RUQ and midpigastric area. Good bowel sounds. No rebound or guarding. No gross peritonitis. No gross organomegaly or masses. No Whipple sign or McBurney point tenderness. BACK: No midline or flank tenderness. NEURO: Alert and oriented. SKIN: Patient appears jaundiced Result Diagram: 01/08/17 1427 01/08/17 1427 Results 24 hrs Laboratory Tests Test 01/08/17 14:27 White Blood Count 32.510^3/ul Red Blood Count 4.0110^6/ul Hemoglobin 13.7g/dl Hematocrit 38.8% Mean Corpuscular Volume 96.8fl Mean Corpuscular Hemoglobin 34.2pg Mean Corpuscular Hemoglobin Concent 35.3g/dl Red Cell Distribution Width 16.3% Platelet Count 41823^3/UL Mean Platelet Volume 11.1fl Neutrophils % 68.0% Band Neutrophils % 16.0% Lymphocytes % 4.0% Monocytes % 4.0% Eosinophils % 6.0% Basophils % 1.0% Promyelocytes % 1.0% Neutrophils # 22.110^3/ul Lymphocytes # 1.310^3/ul Monocytes # 1.310^3/ul Eosinophils # 2.010^3/ul Basophils # 0.310^3/ul Promyelocytes # 0.3 Platelet Estimate PLT APPEAR ADEQUATE Urine Color CONRADO Urine Clarity CLEAR Urine pH 6.0 Urine Specific [place] <=1.005 Urine Ketones NEGATIVE Urine Nitrite NEGATIVE Urine Bilirubin 3+ Urine Ictotest POSITIVE Urine Urobilinogen 0.2 E.U./dL Urine Leukocyte Esterase NEGATIVE Urine Microscopic RBC 0-2/HPF Urine Microscopic WBC NONE SEEN/HPF Urine Epithelial Cells RARE Urine Bacteria RARE Urine Hemoglobin NEGATIVE Urine Glucose NEGATIVE% Urine Total Protein TRACE Sodium Level 134mmol/L Potassium Level 3.7mmol/L Chloride Level 100mmol/L Carbon Dioxide Level 24mmol/L Anion Gap 14 Blood Urea Nitrogen 4mg/dl Creatinine 0.43mg/dl Glucose Level 94mg/dl Calcium Level 8.8mg/dl Total Bilirubin 7.0mg/dl Direct Bilirubin 5.50mg/dl Indirect Bilirubin 1.5mg/dl Aspartate Amino Transf (AST/SGOT) 88IU/L Alanine Aminotransferase (ALT/SGPT) 44IU/L Alkaline Phosphatase 542IU/L Total Protein 8.4g/dl Albumin 4.4g/dl Globulin 4.00g/dl Albumin/Globulin Ratio 1.10 Lipase 14U/L Current Medications Medications (Trade) Dose Ordered Sig/Meka Route PRN Reason Start Time Stop Time Status Last Admin Dose Admin Sodium Chloride (NS) 1,000 ml @ 1,000 mls/hr Q1H STAT IV 01/08/17 14:10 01/08/17 15:09 DC 01/08/17 14:35 Morphine Sulfate (morphine) 6 mg ONCE STAT IV 01/08/17 14:10 01/08/17 14:12 DC 01/08/17 14:33 Ondansetron HCl (Zofran Inj) 4 mg ONCE STAT IV 01/08/17 14:10 01/08/17 14:12 DC 01/08/17 14:33 Hydromorphone HCl (Dilaudid) 1 mg ONCE STAT IV 01/08/17 15:34 01/08/17 15:36 DC 01/08/17 15:47 Procedures/MDM Differential Diagnosis: GERD, gastritis, peptic ulcer disease, pancreatitis, cholecystitis, choledocholithiasis, biliary colic, cholangitis, Pmit-[id number] , ACS/AL, Pnuemonia. Patient does have pancreatitis, patient will be sent over to ER 1 for admission. Departure Diagnosis: Primary Impression: Acute pancreatitis Condition: Stable DIEGO KOEHLER Jan 08, 2017 16:45
[2017-01-08] MEDS ORDERED: SOD CHLORIDE 0.9% 1,000 ML IV ONE (17:00)
--- NOTE | 2017-01-08 18:15 | RADRPT ---
PROCEDURE: US Abdomen Limited . CLINICAL INDICATION: Right upper quadrant pain, jaundice. TECHNIQUE: Multiple real-time images were acquired of the patient's right upper quadrant abdomen u tilizing a high resolution transducer. COMPARISON: CT January 08, 2017 and ultrasound October 08, 2016 FINDINGS: The liver measures 22.6 cm and demonstrates a coarsened echogenicity. The gallbladder is filled with a small amount of bile. No shadowing echogenic stones or masses are seen in the gallbladder. The g allbladder wall is thickened at 4.9 mm. No pericholecystic fluid is noted. The common bile duct xavier sures 3.3 mm in diameter. The pancreas is not well visualized. Antegrade flow is seen in the portal vein. Right kidney measures 13.0 cm. Right kidney demonstrates a normal echogenicity. No hydronephrosis, masses or stones are noted. IMPRESSION: Diffuse fatty infiltration of an enlarged liver. Thickened gallbladder wall. Thickened appearance of the gallbladder wall may be secondary to the co ntracted state of the gallbladder. If there is clinical suspicion for cholecystitis further charact erization with contrast enhanced CT, MRI or HIDA scan could be helpful. Pancreas not well visualized. If characterization of this structure is needed repeat exam, contrast enhanced CT or MRI is recommended. RPTAT: AA .Ayden Angeles MD, Date Time Electronically viewed and signed by .Ayden Angeles MD, MD on 01/08/2017 18:14 .P/
[2017-01-08] MEDS ORDERED: CEFTRIAXONE 1 GM/50 ML (PMX) 50 ML IVPB ONE ×2 (18:30)
[2017-01-08] MEDS ORDERED: SOD CHLORIDE 0.9% 1,000 ML IV SCH (18:39)
--- NOTE | 2017-01-08 18:57 | ERA ---
ER Documentation Chief Complaint Date/Time DATE: 01/08/17 TIME: 18:57 Chief Complaint VOMITING X3 DAYS, ABD PAIN HPI This is a 31-year-old male presents to the ER with abdominal pain. The patient states that he has had pain for the last 4-5 days and states that his pain is all over his abdomen. He does not describes pain as a sharp and cramping pain. He states that he previously had pancreatitis and states that he has had multiple episodes of nonbloody vomiting as well. He states that he does drink every day, however his last drink was approximately 4 days ago. He denies any aggravating or relieving factors for his symptoms and came to the ER because he noticed his pain was getting worse and his eyes are becoming yellow. ROS All systems reviewed and are negative except as per history of present illness. Medications Home Meds Discontinued Scripts [Thiamine] 100 MG TAB No Conflict Check, 100 MG PO DAILY, #30 Prov:HAMILTON VELAZCO MD 10/22/16 Multivitamins* (Theragran*) 1 Tab Tab, 1 TAB PO DAILY, #30 TAB Prov:HAMILTON VELAZCO MD 10/22/16 Folic Acid* (Folic Acid*) 1 Mg Tablet, 1 MG PO DAILY, #30 TAB Prov:HAMILTON VELAZCO MD 10/22/16 Metronidazole* (Metronidazole*) 500 Mg Tablet, 500 MG PO Q8, #21 TAB Prov:HAMILTON VELAZCO MD 10/22/16 Ciprofloxacin Hcl* (Ciprofloxacin Hcl*) 500 Mg Tablet, 500 MG PO BID, #14 TAB Prov:HAMILTON VELAZCO MD 10/22/16 Pantoprazole* (Protonix*) 40 Mg Tablet.dr, 40 MG PO DAILY for 30 Days, TAB Prov:APURVA BARNARD 10/10/16 Sucralfate* (Carafate*) 1 Gm Tab, 1 GM PO QID Y for GASTROINTESTINAL UPSET for 30 Days, TAB Prov:APURVA BARNARD 10/10/16 Tramadol HCl (Tramadol HCl) 50 Mg Tablet, 50 MG PO Q6 Y for PAIN, #30 TAB Prov:APURVA BARNARD 10/10/16 Hydrocortisone (Hydrocortisone Oi) 28.35 Gm Oint, 28.35 GM TP BID, #1 Prov:JUAN SHEPARD 10/08/16 Ondansetron Hcl* (Zofran*) 4 Mg Tablet, 4 MG PO Q6H for NAUSEA AND/OR VOMITING, #30 TAB Prov:NURIS MARCELINO PA-C 06/02/16 Ranitidine Hcl* (Zantac*) 150 Mg Tablet, 150 MG PO BID, #60 TAB Prov:RIVKA RODRIGUEZ DO 05/22/16 Allergies Allergies: Coded Allergies: shellfish derived (Verified Allergy, Unknown, RASH, ITCHINESS, 01/08/17) PMhx/Soc History of Surgery: No Anesthesia Reaction: No Hx 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 Disorder: No Hx Respiratory Disorders: Yes Hx Cardiac Disorders: Yes Hx Psychiatric Problems: No Hx Miscellaneous Medical Probl: Yes (hx pancreatitis) Hx Alcohol Use: Yes ( QUIT FEW DAYS AGO HEAVY DRINKER STARTED AT 25 Y.O) Hx Substance Use: Yes (coccaine month ago) Hx Tobacco Use: Yes (1/2 pk/day) Smoking Status: Current every day smoker Physical Exam Vitals Vital Signs Date Time Temp Pulse Resp B/P Pulse Ox O2 Delivery O2 Flow Rate FiO2 01/08/17 18:00 98.2 115 18 114/73 96 Room Air 01/08/17 17:00 98.2 89 18 132/69 99 Room Air 01/08/17 12:39 98.5 113 17 126/66 97 Physical Exam INITIAL VITAL SIGNS: Reviewed by me GENERAL: The patient is well developed and appropriate for usual state of health in no apparent distress HEENT: Bilateral scleral icterus pupils equal, round, and reactive to light. EOMI. NECK: C-spine is soft and supple, there is no meningismus. There is no cervical lymphadenopathy. LUNGS: Clear to auscultation bilaterally. There are no rales, wheezes or rhonchi. HEART: Regular rate and rhythm, no murmurs, clicks, rubs or gallops. ABDOMEN: Epigastric tenderness to palpation, soft, non-tender, non-distended. There are bowel sounds in all four quadrants. No rebound or guarding. EXTREMITIES: There is no peripheral cyanosis or edema. No focal swelling or erythema. NEUROLOGICAL: The patient moves all four extremities with 5/5 strength. Cranial nerves II - XII are intact. Normal gait. Alert and oriented SKIN: There is no apparent rash or petechiae. HEME/LYMPHATIC: There is no evidence of excessive bruising or lymphedema. PSYCHIATRIC: The patient does not appear anxious or depressed. Result Diagram: 01/08/17 1427 01/08/17 1427 Results 24 hrs Laboratory Tests Test 01/08/17 14:27 White Blood Count 32.510^3/ul Red Blood Count 4.0110^6/ul Hemoglobin 13.7g/dl Hematocrit 38.8% Mean Corpuscular Volume 96.8fl Mean Corpuscular Hemoglobin 34.2pg Mean Corpuscular Hemoglobin Concent 35.3g/dl Red Cell Distribution Width 16.3% Platelet Count 29913^3/UL Mean Platelet Volume 11.1fl Neutrophils % 68.0% Band Neutrophils % 16.0% Lymphocytes % 4.0% Monocytes % 4.0% Eosinophils % 6.0% Basophils % 1.0% Promyelocytes % 1.0% Neutrophils # 22.110^3/ul Lymphocytes # 1.310^3/ul Monocytes # 1.310^3/ul Eosinophils # 2.010^3/ul Basophils # 0.310^3/ul Promyelocytes # 0.3 Platelet Estimate PLT APPEAR ADEQUATE Urine Color CONRADO Urine Clarity CLEAR Urine pH 6.0 Urine Specific [place] <=1.005 Urine Ketones NEGATIVE Urine Nitrite NEGATIVE Urine Bilirubin 3+ Urine Ictotest POSITIVE Urine Urobilinogen 0.2 E.U./dL Urine Leukocyte Esterase NEGATIVE Urine Microscopic RBC 0-2/HPF Urine Microscopic WBC NONE SEEN/HPF Urine Epithelial Cells RARE Urine Bacteria RARE Urine Hemoglobin NEGATIVE Urine Glucose NEGATIVE% Urine Total Protein TRACE Sodium Level 134mmol/L Potassium Level 3.7mmol/L Chloride Level 100mmol/L Carbon Dioxide Level 24mmol/L Anion Gap 14 Blood Urea Nitrogen 4mg/dl Creatinine 0.43mg/dl Glucose Level 94mg/dl Calcium Level 8.8mg/dl Total Bilirubin 7.0mg/dl Direct Bilirubin 5.50mg/dl Indirect Bilirubin 1.5mg/dl Aspartate Amino Transf (AST/SGOT) 88IU/L Alanine Aminotransferase (ALT/SGPT) 44IU/L Alkaline Phosphatase 542IU/L Total Protein 8.4g/dl Albumin 4.4g/dl Globulin 4.00g/dl Albumin/Globulin Ratio 1.10 Lipase 14U/L Current Medications Medications (Trade) Dose Ordered Sig/Meka Route PRN Reason Start Time Stop Time Status Last Admin Dose Admin Sodium Chloride (NS) 1,000 ml @ 1,000 mls/hr Q1H STAT IV 01/08/17 14:10 01/08/17 15:09 DC 01/08/17 14:35 Morphine Sulfate (morphine) 6 mg ONCE STAT IV 01/08/17 14:10 01/08/17 14:12 DC 01/08/17 14:33 Ondansetron HCl (Zofran Inj) 4 mg ONCE STAT IV 01/08/17 14:10 01/08/17 14:12 DC 01/08/17 14:33 Hydromorphone HCl 1 mg 1 mg ONCE STAT IV 01/08/17 15:34 01/08/17 15:36 DC 01/08/17 15:47 Sodium Chloride 1,000 ml @ 1,000 mls/hr Q1H ONCE IV 01/08/17 17:00 01/08/17 17:59 DC 01/08/17 17:00 Ceftriaxone Sodium 50 ml @ 100 mls/hr ONCE ONCE IVPB 01/08/17 18:30 01/08/17 18:59 DC Ceftriaxone Sodium 50 ml @ 100 mls/hr ONCE ONCE IVPB 01/08/17 18:30 01/08/17 18:59 DC Sodium Chloride (NS) 1,000 ml @ 250 mls/hr Q4H IV 01/08/17 18:39 01/08/17 22:38 Ondansetron HCl (Zofran Inj) 4 mg BRIDGE ORDER PRN IV NAUSEA AND/OR VOMITING 01/08/17 19:00 01/09/17 18:59 Acetaminophen 650 mg 650 mg ER BRIDGE PRN PO MILD PAIN/FEVER 01/08/17 19:00 01/09/17 18:59 Multivitamins 10 ml/Thiamine HCl 100 mg/Folic Acid 1 mg/Sodium Chloride 1,011.2 ml @ 125 mls/ hr DAILY@09 IVPB 01/09/17 09:00 Sodium Chloride (NS) 1,000 ml @ 125 mls/hr Q8H IV 01/08/17 19:00 Chlordiazepoxide (Librium) 25 mg TID PO 01/08/17 21:00 Morphine Sulfate (morphine) 2 mg Q4H PRN IV pain 01/08/17 19:00 Lorazepam (Ativan) 1 mg Q6H PRN PO ANXIETY 01/08/17 19:00 Docusate Sodium (Colace) 100 mg BID PO 01/08/17 21:00 Pantoprazole (Protonix Tab) 40 mg DAILY@06 PO 01/09/17 06:00 Procedures/MDM CT abdomen pelvis without: 1. Mild enlargement of the pancreatic head with surrounding inflammatory changes suggesting acute pancreatitis. No peripancreatic fluid collection is identified. 2. Stable appearance of curvilinear calcifications along the tail of the pancreas and anterior pararenal space. Stable nodular partially calcified structure in the gastrocolic ligament likely representing fat necrosis. 3. Markedly enlarged fatty liver. 4. Moderate splenomegaly. 5. Stable mild fatty infiltration in the root of the mesentery with mildly enlarged multiple lymph nodes. Ultrasound gallbladder: Diffuse fatty infiltration of an enlarged liver. Thickened gallbladder wall. Thickened appearance of the gallbladder wall may be secondary to the contracted state of the gallbladder. If there is clinical suspicion for cholecystitis further characterization with contrast enhanced CT, MRI or HIDA scan could be helpful. Pancreas not well visualized. If characterization of this structure is needed repeat exam, contrast enhanced CT or MRI is recommended. This 31-year-old male presents to the emergency room for evaluation of abdominal pain. When I evaluated this patient he did have jaundice and did have pain in the middle of his abdomen. Lab work was obtained which does demonstrate an acute increase in the patient's bilirubin. The patient did have a CT of the abdomen pelvis which demonstrates pancreatitis. He does state he drinks every day. The patient did have a white blood cell count of 32,000, and was tachycardic. The patient was given 3 L of fluid. His pain is controlled with morphine in the emergency room. I did speak to the patient in regards to his diagnosis and given this patient's abdominal pain and elevation of white blood cell count the patient will [facility]. He is hemodynamically stable. tHis patient's Oliver score is 1 at this time. She was started on broad-spectrum antibiotics with Rocephin and Flagyl. Departure Diagnosis: Primary Impression: Acute pancreatitis Additional Impressions: Leukocytosis Hyperbilirubinemia Jaundice Nausea & vomiting Alcohol abuse Condition: Stable RIVKA RODRIGUEZ DO Jan 08, 2017 18:57
[2017-01-08] MEDS ORDERED: ACETAMINOPHEN 325 MG TAB PO PRN (19:00)
[2017-01-08] MEDS ORDERED: ONDANSETRON 4 MG INJ IV PRN (19:00)
--- NOTE | 2017-01-08 19:03 | HP ---
Date/Time of Note Date/Time of Note DATE: 01/08/17 TIME: 18:47 Assessment/Plan VTE Prophylaxis VTE Prophylaxis Intervention: SCD's Assessment/Plan Assessment/Plan 31-year-old male who presents with abdominal pain of 4 days duration managed as follows 1. Alcohol related pancreatitis [recurrent] 2. Ongoing alcohol abuse 3. Chronic alcoholic liver cirrhosis superimposed on fatty liver 4. Tobacco and cocaine abuse 5. History of chronic leukocytosis 6. GERD with hx of GI bleed PLAN: * Admit med surg / NPO / IVF / Trend lipase levels * banana bag / librium / PRN ativan * SW consult for resources. * Patient is s/p tobacco / alcohol and cocaine cessation counselling * Further interventions per clinical course Prophylaxis: PPI / SCDs HPI/ROS Admit Date/Time Admit Date/Time January 08, 2017 Hx of Present Illness PRESENTING COMPLAINT: abd pain HISTORY OF PRESENTING COMPLAINT:This is a 31-year-old male with a history of alcohol abuse who presents today with abdominal pain. Pain is said to be diffuse and severe. Associated with vomiting. Pain has been going on for the last 3-4 days. Has been no blood in his stool in his vomit. He denies black stools. His last drink was 2 days ago. Denies fever. Denies dysuria or hematuria. ROS 12 point review if systems was done and pertinent findings are as noted. PMH/Family/Social Past Medical History * Chronic alcohol abuse with alcoholic pancreatitis * Fatty liver * History of GI bleed * Gastroesophageal reflux disease * Chronic alcohol associated splenomegaly Past Surgical History Past Surgical Hx: no surgical history Family History Significant Family History: no pertinent family hx Social History Alcohol Use: heavy Smoking Status: Current every day smoker Drug Use: cocaine Exam/Review of Systems Vital Signs Vitals Laboratory Tests Test 01/08/17 14:27 White Blood Count 32.510^3/ul Red Blood Count 4.0110^6/ul Hemoglobin 13.7g/dl Hematocrit 38.8% Mean Corpuscular Volume 96.8fl Mean Corpuscular Hemoglobin 34.2pg Mean Corpuscular Hemoglobin Concent 35.3g/dl Red Cell Distribution Width 16.3% Platelet Count 10378^3/UL Mean Platelet Volume 11.1fl Neutrophils % 68.0% Band Neutrophils % 16.0% Lymphocytes % 4.0% Monocytes % 4.0% Eosinophils % 6.0% Basophils % 1.0% Promyelocytes % 1.0% Neutrophils # 22.110^3/ul Lymphocytes # 1.310^3/ul Monocytes # 1.310^3/ul Eosinophils # 2.010^3/ul Basophils # 0.310^3/ul Promyelocytes # 0.3 Platelet Estimate PLT APPEAR ADEQUATE Urine Color CONRADO Urine Clarity CLEAR Urine pH 6.0 Urine Specific [place] <=1.005 Urine Ketones NEGATIVE Urine Nitrite NEGATIVE Urine Bilirubin 3+ Urine Ictotest POSITIVE Urine Urobilinogen 0.2 E.U./dL Urine Leukocyte Esterase NEGATIVE Urine Microscopic RBC 0-2/HPF Urine Microscopic WBC NONE SEEN/HPF Urine Epithelial Cells RARE Urine Bacteria RARE Urine Hemoglobin NEGATIVE Urine Glucose NEGATIVE% Urine Total Protein TRACE Sodium Level 134mmol/L Potassium Level 3.7mmol/L Chloride Level 100mmol/L Carbon Dioxide Level 24mmol/L Anion Gap 14 Blood Urea Nitrogen 4mg/dl Creatinine 0.43mg/dl Glucose Level 94mg/dl Calcium Level 8.8mg/dl Total Bilirubin 7.0mg/dl Direct Bilirubin 5.50mg/dl Indirect Bilirubin 1.5mg/dl Aspartate Amino Transf (AST/SGOT) 88IU/L Alanine Aminotransferase (ALT/SGPT) 44IU/L Alkaline Phosphatase 542IU/L Total Protein 8.4g/dl Albumin 4.4g/dl Globulin 4.00g/dl Albumin/Globulin Ratio 1.10 Lipase 14U/L Current Medications Medications (Trade) Dose Ordered Sig/Meka Route PRN Reason Start Time Stop Time Status Last Admin Dose Admin Sodium Chloride (NS) 1,000 ml @ 1,000 mls/hr Q1H STAT IV 01/08/17 14:10 01/08/17 15:09 DC 01/08/17 14:35 1,000 MLS/HR Morphine Sulfate (morphine) 6 mg ONCE STAT IV 01/08/17 14:10 01/08/17 14:12 DC 01/08/17 14:33 6 MG Ondansetron HCl (Zofran Inj) 4 mg ONCE STAT IV 01/08/17 14:10 01/08/17 14:12 DC 01/08/17 14:33 4 MG Hydromorphone HCl 1 mg 1 mg ONCE STAT IV 01/08/17 15:34 01/08/17 15:36 DC 01/08/17 15:47 1 MG Sodium Chloride 1,000 ml @ 1,000 mls/hr Q1H ONCE IV 01/08/17 17:00 01/08/17 17:59 DC 01/08/17 17:00 1,000 MLS/HR Ceftriaxone Sodium 50 ml @ 100 mls/hr ONCE ONCE IVPB 01/08/17 18:30 01/08/17 18:59 Ceftriaxone Sodium 50 ml @ 100 mls/hr ONCE ONCE IVPB 01/08/17 18:30 01/08/17 18:59 Sodium Chloride (NS) 1,000 ml @ 250 mls/hr Q4H IV 01/08/17 18:39 01/08/17 22:38 Ondansetron HCl (Zofran Inj) 4 mg BRIDGE ORDER PRN IV NAUSEA AND/OR VOMITING 01/08/17 19:00 01/09/17 18:59 Acetaminophen (Tylenol Tab) 650 mg ER BRIDGE PRN PO MILD PAIN/FEVER 01/08/17 19:00 01/09/17 18:59 Vital Signs Date Time Temp Pulse Resp B/P Pulse Ox O2 Delivery O2 Flow Rate FiO2 01/08/17 18:00 98.2 115 18 114/73 96 Room Air Exam Constitutional: alert, oriented, No distress Head: atraumatic, normocephalic Eyes: icteric (+++) Neck: supple Respiratory: clear to auscultation, diminished breath sounds Cardiovascular: regular rate and rhythm, No murmurs/extra sounds Gastrointestinal: bowel sounds, soft, tender, No rebound or guarding Musculoskeletal: nl extremities to inspection Extremities: No edema Skin: other (Jaundiced) Labs Result Diagram: 01/08/17 1427 01/08/17 1427 Medications Medications Current Medications Ceftriaxone Sodium 50 ml @ 100 mls/hr ONCE ONCE IVPB ; Start 01/08/17 at 18:30 ; Stop 01/08/17 at 18:59 Ceftriaxone Sodium 50 ml @ 100 mls/hr ONCE ONCE IVPB ; Start 01/08/17 at 18:30 ; Stop 01/08/17 at 18:59 Sodium Chloride (NS) 1,000 ml @ 250 mls/hr Q4H IV ; Start 01/08/17 at 18:39; Stop 01/08/17 at 22:38 Procedures Procedures Laboratory Tests Test 01/08/17 14:27 White Blood Count 32.510^3/ul Red Blood Count 4.0110^6/ul Hemoglobin 13.7g/dl Hematocrit 38.8% Mean Corpuscular Volume 96.8fl Mean Corpuscular Hemoglobin 34.2pg Mean Corpuscular Hemoglobin Concent 35.3g/dl Red Cell Distribution Width 16.3% Platelet Count 23382^3/UL Mean Platelet Volume 11.1fl Neutrophils % 68.0% Band Neutrophils % 16.0% Lymphocytes % 4.0% Monocytes % 4.0% Eosinophils % 6.0% Basophils % 1.0% Promyelocytes % 1.0% Neutrophils # 22.110^3/ul Lymphocytes # 1.310^3/ul Monocytes # 1.310^3/ul Eosinophils # 2.010^3/ul Basophils # 0.310^3/ul Promyelocytes # 0.3 Platelet Estimate PLT APPEAR ADEQUATE Urine Color CONRADO Urine Clarity CLEAR Urine pH 6.0 Urine Specific [place] <=1.005 Urine Ketones NEGATIVE Urine Nitrite NEGATIVE Urine Bilirubin 3+ Urine Ictotest POSITIVE Urine Urobilinogen 0.2 E.U./dL Urine Leukocyte Esterase NEGATIVE Urine Microscopic RBC 0-2/HPF Urine Microscopic WBC NONE SEEN/HPF Urine Epithelial Cells RARE Urine Bacteria RARE Urine Hemoglobin NEGATIVE Urine Glucose NEGATIVE% Urine Total Protein TRACE Sodium Level 134mmol/L Potassium Level 3.7mmol/L Chloride Level 100mmol/L Carbon Dioxide Level 24mmol/L Anion Gap 14 Blood Urea Nitrogen 4mg/dl Creatinine 0.43mg/dl Glucose Level 94mg/dl Calcium Level 8.8mg/dl Total Bilirubin 7.0mg/dl Direct Bilirubin 5.50mg/dl Indirect Bilirubin 1.5mg/dl Aspartate Amino Transf (AST/SGOT) 88IU/L Alanine Aminotransferase (ALT/SGPT) 44IU/L Alkaline Phosphatase 542IU/L Total Protein 8.4g/dl Albumin 4.4g/dl Globulin 4.00g/dl Albumin/Globulin Ratio 1.10 Lipase 14U/L Current Medications Medications (Trade) Dose Ordered Sig/Meka Route PRN Reason Start Time Stop Time Status Last Admin Dose Admin Sodium Chloride (NS) 1,000 ml @ 1,000 mls/hr Q1H STAT IV 01/08/17 14:10 01/08/17 15:09 DC 01/08/17 14:35 1,000 MLS/HR Morphine Sulfate (morphine) 6 mg ONCE STAT IV 01/08/17 14:10 01/08/17 14:12 DC 01/08/17 14:33 6 MG Ondansetron HCl (Zofran Inj) 4 mg ONCE STAT IV 01/08/17 14:10 01/08/17 14:12 DC 01/08/17 14:33 4 MG Hydromorphone HCl 1 mg 1 mg ONCE STAT IV 01/08/17 15:34 01/08/17 15:36 DC 01/08/17 15:47 1 MG Sodium Chloride 1,000 ml @ 1,000 mls/hr Q1H ONCE IV 01/08/17 17:00 01/08/17 17:59 DC 01/08/17 17:00 1,000 MLS/HR Ceftriaxone Sodium 50 ml @ 100 mls/hr ONCE ONCE IVPB 01/08/17 18:30 01/08/17 18:59 Ceftriaxone Sodium 50 ml @ 100 mls/hr ONCE ONCE IVPB 01/08/17 18:30 01/08/17 18:59 Sodium Chloride (NS) 1,000 ml @ 250 mls/hr Q4H IV 01/08/17 18:39 01/08/17 22:38 Ondansetron HCl (Zofran Inj) 4 mg BRIDGE ORDER PRN IV NAUSEA AND/OR VOMITING 01/08/17 19:00 01/09/17 18:59 Acetaminophen (Tylenol Tab) 650 mg ER BRIDGE PRN PO MILD PAIN/FEVER 01/08/17 19:00 01/09/17 18:59 PROCEDURE: CT Abdomen and Pelvis without contrast. CLINICAL INDICATION: Abdominal pain with vomiting. History of pancreatitis. TECHNIQUE: CT scan of the abdomen and pelvis without contrast was performed on a multidetector high-resolution CT scanner. The patient was scanned without intravenous contrast. Coronal and sagittal reformatted images were obtained from the axial source images. Images were reviewed on a high-resolution PACS workstation. The total exam CTDI equals 16.73 mGy and the total exam DLP equals 1033.83 mGy-cm. One or more of the following dose reduction techniques were used: Automated exposure control. Adjustment of the mA and/or kV according to patient size. Use of iterative reconstruction technique. COMPARISON: CT abdomen and pelvis 10/09/2016. CT abdomen and pelvis 03/27/2016 FINDINGS: CT abdomen: The lung bases are clear. The heart size is normal, without pericardial thickening or effusion. There is markedly enlarged liver with fatty infiltration. There is moderate splenomegaly. The stomach is partially collapsed, but is grossly unremarkable. There is mild enlargement of the pancreatic head with surrounding inflammatory changes suggesting acute pancreatitis. Curvilinear calcifications are seen along the anterior aspect of the pancreas extending into the anterior pararenal space. There is partially calcified nodular structure in the gastrocolic ligament abutting the transverse colon measuring approximately 2.7 cm on image 3 - 84, not significantly changed. There is mild mesenteric fatty infiltration with multiple mildly enlarged mesenteric lymph nodes, not significantly changed. There is somewhat contracted gallbladder with diffuse wall thickening of the gallbladder. There is no biliary ductal dilatation. The adrenal glands are symmetric and normal. The kidneys are symmetrically unremarkable as well. No renal calculus or obstructive uropathy or mass lesion is seen. The aorta is of normal caliber. There is no retroperitoneal lymphadenopathy. The jennyfer hepatis region is clear. The bowel and mesentery, as visualized, are equally unremarkable. CT pelvis: The small bowel loops situated within the pelvis are unremarkable. There is a normal appendix. The pelvic organs are normal. The pelvic sidewalls and inguinal regions are clear. The sigmoid colon and rectum are unremarkable. No mass, lymphadenopathy, or free fluid is seen. No acute inflammation is seen. No osteolytic or osteoblastic lesion is detected. IMPRESSION: 1. Mild enlargement of the pancreatic head with surrounding inflammatory changes suggesting acute pancreatitis. No peripancreatic fluid collection is identified. 2. Stable appearance of curvilinear calcifications along the tail of the pancreas and anterior pararenal space. Stable nodular partially calcified structure in the gastrocolic ligament likely representing fat necrosis. 3. Markedly enlarged fatty liver. 4. Moderate splenomegaly. 5. Stable mild fatty infiltration in the root of the mesentery with mildly enlarged multiple lymph nodes. RPTAT: BB .Honorio Gomez MD, MD Date Time Electronically viewed and signed by .Honorio Gomez MD, MD on 01/08/2017 16:23 .O/ CC: DIEGO KOEHLER ROCEDURE: US Abdomen Limited . CLINICAL INDICATION: Right upper quadrant pain, jaundice. TECHNIQUE: Multiple real-time images were acquired of the patient's right upper quadrant abdomen utilizing a high resolution transducer. COMPARISON: CT January 08, 2017 and ultrasound October 08, 2016 FINDINGS: The liver measures 22.6 cm and demonstrates a coarsened echogenicity. The gallbladder is filled with a small amount of bile. No shadowing echogenic stones or masses are seen in the gallbladder. The gallbladder wall is thickened at 4.9 mm. No pericholecystic fluid is noted. The common bile duct measures 3.3 mm in diameter. The pancreas is not well visualized. Antegrade flow is seen in the portal vein. Right kidney measures 13.0 cm. Right kidney demonstrates a normal echogenicity. No hydronephrosis, masses or stones are noted. IMPRESSION: Diffuse fatty infiltration of an enlarged liver. Thickened gallbladder wall. Thickened appearance of the gallbladder wall may be secondary to the contracted state of the gallbladder. If there is clinical suspicion for cholecystitis further characterization with contrast enhanced CT, MRI or HIDA scan could be helpful. Pancreas not well visualized. If characterization of this structure is needed repeat exam, contrast enhanced CT or MRI is recommended. RPTAT: AA .Ayden Angeles MD, Date Time Electronically viewed and signed by .Ayden Angeles MD, on 01/08/2017 18:14 .P/ CC: RIVKA RODRIGUEZ BOLAT[place]O M. Jan 08, 2017 19:03
[2017-01-08 19:58] VITALS: TEMP 98.6
[2017-01-08 20:24] LABS: BARBITURATES Negative (NEGATIVE); BENZODIAZEPINES Negative (NEGATIVE)
[2017-01-08 20:25] LABS: CANNABINOIDS Negative (NEGATIVE); COCAINE Negative (NEGATIVE); OPIATES Negative (NEGATIVE)
[2017-01-08] MEDS: SOD CHLORIDE 0.9% 1,000 ML IV SCH (20:28)
[2017-01-08] MEDS: DOCUSATE SODIUM 100 MG CAP PO SCH (20:32)
[2017-01-08] MEDS: CHLORDIAZEPOXIDE 25 MG CAP PO SCH (20:32)
[2017-01-08] MEDS: morphine 2 MG INJ IV PRN (20:33)
[2017-01-08 20:35] VITALS: BP 117/73; RESP 20
[2017-01-08 21:40] VITALS: Ht 172.7 cm; Wt 85.5 kg
[2017-01-08 23:00] VITALS: PULSE 97
[2017-01-09] MEDS: morphine 2 MG INJ IV PRN ×6 (00:50→22:58)
[2017-01-09] MEDS: SOD CHLORIDE 0.9% 1,000 ML IV SCH ×3 (03:00→11:00)
[2017-01-09] MEDS: PANTOPRAZOLE (EC) 40 MG TAB PO SCH (05:14)
[2017-01-09 08:19] VITALS: BP 105/57; RESP 20
[2017-01-09] MEDS: DOCUSATE SODIUM 100 MG CAP PO SCH ×2 (09:00→20:47)
[2017-01-09] MEDS: CHLORDIAZEPOXIDE 25 MG CAP PO SCH ×3 (09:00→20:47)
[2017-01-09 09:36] LABS: ADD SCAN DIFF NO
[2017-01-09 09:42] LABS: ABNORMAL IP MESSAGE 1; HEMATOCRIT 36.3 % (42.0-52.0); HEMOGLOBIN 12.6 g/dl (14.0-18.0); MEAN CORPUSCULAR HEMOGLOBIN 34.3 pg (29.0-33.0); MEAN CORPUSCULAR HGB CONC 34.7 g/dl (32.0-37.0); MEAN CORPUSCULAR VOLUME 98.9 fl (82.0-101.0); MEAN PLATELET VOLUME 10.9 fl (7.4-10.4); PLATELET COUNT 200 10^3/UL (140-415); RED BLOOD COUNT 3.67 10^6/ul (4.70-6.10); RED CELL DISTRIBUTION WIDTH 16.7 % (11.5-14.5); WHITE BLOOD COUNT 26.6 10^3/ul (4.8-10.8)
[2017-01-09 10:01] LABS: INR 1.94; PROTIME 22.3 Sec (12.2-14.2); PT RATIO 1.7
[2017-01-09 10:02] LABS: PARTIAL THROMBOPLASTIN TIME 48.5 Sec (25.0-35.0)
[2017-01-09 10:07] LABS: ALBUMIN 3.6 g/dl (3.3-4.9); ALBUMIN/GLOBULIN RATIO 1.05; BILIRUBIN,INDIRECT 1.4 mg/dl (0-1.1); BILIRUBIN,TOTAL 6.4 mg/dl (0.2-1.3); CREATININE 0.43 mg/dl (0.61-1.24); MAGNESIUM 1.9 mg/dl (1.7-2.5); POTASSIUM 3.4 mmol/L (3.5-5.1)
[2017-01-09] MEDS: MULTIVITAMINS 10 ML, THIAMINE 100 MG, FOLIC ACID 1 MG in SOD CHLORIDE 0.9% 1,000 ML IVPB SCH (11:37)
[2017-01-09 13:19] LABS: EOSINOPHILS # 0.8 10^3/ul (0.0-0.5); LYMPHOCYTES # 3.2 10^3/ul (0.8-2.9); MONOCYTE # 1.9 10^3/ul (0.3-0.9); NEUTROPHIL # 17.8 10^3/ul (1.6-7.5)
--- NOTE | 2017-01-09 14:18 | PN ---
Date/Time of Note Date/Time of Note DATE: 01/09/17 TIME: 14:18 Assessment/Plan Lines/Catheters IV C[facility]ter Type (from [facility]): Peripheral IV Urinary Cath still in place: No Exam/Review of Systems Vital Signs Vitals Vital Signs Date Time Temp Pulse Resp B/P Pulse Ox O2 Delivery O2 Flow Rate FiO2 01/09/17 08:19 99.2 95 20 105/57 96 01/08/17 19:58 Room Air Intake and Output 01/08/17 01/08/17 01/09/17 15:00 23:00 07:00 Intake Total 1000 ml Balance 1000 ml Results Result Diagram: 01/09/17 0910 01/09/17 0910 Results 24 hrs Laboratory Tests Test 01/08/17 14:27 01/09/17 09:10 White Blood Count 32.5 #H 26.6 H Red Blood Count 4.01 L 3.67 L Hemoglobin 13.7 L 12.6 L Hematocrit 38.8 L 36.3 L Mean Corpuscular Volume 96.8 98.9 Mean Corpuscular Hemoglobin 34.2 H 34.3 H Mean Corpuscular Hemoglobin Concent 35.3 34.7 Red Cell Distribution Width 16.3 H 16.7 H Platelet Count 229 # 200 Mean Platelet Volume 11.1 H 10.9 H Neutrophils % 68.0 67.0 Band Neutrophils % 16.0 H 11.0 H Lymphocytes % 4.0 L 12.0 L Monocytes % 4.0 7.0 Eosinophils % 6.0 3.0 Basophils % 1.0 Promyelocytes % 1.0 H Neutrophils # 22.1 H 17.8 H Lymphocytes # 1.3 3.2 H Monocytes # 1.3 H 1.9 H Eosinophils # 2.0 H 0.8 H Basophils # 0.3 H Promyelocytes # 0.3 Platelet Estimate PLT APPEAR ADEQUATE Urine Color [place] Urine Clarity CLEAR Urine pH 6.0 Urine Specific [place] <=1.005 L Urine Ketones NEGATIVE Urine Nitrite NEGATIVE Urine Bilirubin 3+ H Urine Ictotest POSITIVE Urine Urobilinogen 0.2 E.U./dL Urine Leukocyte Esterase NEGATIVE Urine Microscopic RBC 0-2 Urine Microscopic WBC NONE SEEN Urine Epithelial Cells RARE Urine Bacteria RARE Urine Hemoglobin NEGATIVE Urine Glucose NEGATIVE Urine Total Protein TRACE Sodium Level 134 L 135 Potassium Level 3.7 3.4 L Chloride Level 100 102 Carbon Dioxide Level 24 22 Anion Gap 14 14 Blood Urea Nitrogen 4 L 3 L Creatinine 0.43 L 0.43 L Glucose Level 94 66 #L Calcium Level 8.8 8.0 L Total Bilirubin 7.0 H 6.4 H Direct Bilirubin 5.50 H 5.00 H Indirect Bilirubin 1.5 H 1.4 H Aspartate Amino Transf (AST/SGOT) 88 H 75 H Alanine Aminotransferase (ALT/SGPT) 44 36 Alkaline Phosphatase 542 H 400 H Total Protein 8.4 H 7.0 # Albumin 4.4 3.6 Globulin 4.00 H 3.40 H Albumin/Globulin Ratio 1.10 1.05 Lipase 14 L Urine Opiates Screen Negative Urine Barbiturates Negative Urine Amphetamines Screen Negative Urine Benzodiazepines Screen Negative Urine Cocaine Screen Negative Urine Cannabinoids Negative Prothrombin Time 22.3 H Prothrombin Time Ratio 1.7 INR International Normalized Ratio 1.94 Activated Partial Thromboplast Time 48.5 H Magnesium Level 1.9 Medications Medications Current Medications Multivitamins 10 ml/Thiamine HCl 100 mg/Folic Acid 1 mg/Sodium Chloride 1,011.2 ml @ 125 mls/ hr DAILY@09 IVPB Last administered on 01/09/17 11:37; Admin Dose 125 MLS/HR; Start 01/09/17 at 09:00 Sodium Chloride (NS) 1,000 ml @ 125 mls/hr Q8H IV Last administered on 05:15; Admin Dose 125 MLS/HR; Start 01/08/17 at 19:00 Chlordiazepoxide (Librium) 25 mg TID PO Last administered on 01/08/17 20:32; Admin Dose 25 MG; Start 01/08/17 at 21:00 Morphine Sulfate (morphine) 2 mg Q4H PRN IV pain Last administered on 01/09/17 09:38; Admin Dose 2 MG; Start 01/08/17 at 19:00 Lorazepam (Ativan) 1 mg Q6H PRN PO ANXIETY; Start 01/08/17 at 19:00 Docusate Sodium (Colace) 100 mg BID PO Last administered on 01/08/17 20:32; Admin Dose 100 MG; Start 01/08/17 at 21:00 Pantoprazole (Protonix Tab) 40 mg DAILY@06 PO Last administered on 01/09/17 05: 14; Admin Dose 40 MG; Start 01/09/17 at 06:00 MILEY OLIVA Jan 09, 2017 14:18
[2017-01-09] MEDS ORDERED: POTASSIUM CHLORIDE 40 MEQ in DEXTROSE 5%-0.45% NACL 1,000 ML IV SCH (14:30)
[2017-01-09] MEDS: D5W-0.45 NACL + KCL 40 MEQ 1,000 ML IV SCH ×2 (15:30→21:46)
[2017-01-09] MEDS ORDERED: POTASSIUM CHLORIDE 20 MEQ in SOD CHLORIDE 0.9% 100 ML IVPB ONE (16:00)
[2017-01-09 17:44] LABS: WHITE BLOOD COUNT 32.5 10^3/ul (4.8-10.8)
[2017-01-09 19:23] VITALS: BP 108/61; RESP 18
[2017-01-09] MEDS ORDERED: VITAMIN A & D 5 GM OINT PACKET TOP ONE (20:50)
[2017-01-09] MEDS: LORAZEPAM 1 MG TAB PO PRN (21:50)
[2017-01-10] MEDS: morphine 2 MG INJ IV PRN ×6 (02:55→23:45)
[2017-01-10] MEDS: D5W-0.45 NACL + KCL 40 MEQ 1,000 ML IV SCH ×3 (06:21→23:30)
[2017-01-10] MEDS: PANTOPRAZOLE (EC) 40 MG TAB PO SCH (06:21)
[2017-01-10 08:20] VITALS: BP 114/70; RESP 16
[2017-01-10] MEDS: CHLORDIAZEPOXIDE 25 MG CAP PO SCH ×3 (08:29→19:57)
[2017-01-10] MEDS: DOCUSATE SODIUM 100 MG CAP PO SCH ×2 (08:29→19:57)
[2017-01-10] MEDS: MULTIVITAMINS 10 ML, THIAMINE 100 MG, FOLIC ACID 1 MG in SOD CHLORIDE 0.9% 1,000 ML IVPB SCH (08:29)
--- NOTE | 2017-01-10 08:54 | PN ---
Date/Time of Note Date/Time of Note DATE: 01/10/17 TIME: 08:53 Assessment/Plan Lines/Catheters IV C[facility] Type ([facility]): Peripheral IV Urinary Cath still in place: No Assessment/Plan Assessment/Plan 31-year-old male who presents with abdominal pain of 4 days duration managed as follows 1. Alcohol related pancreatitis [recurrent]: ?improving 2. Ongoing alcohol abuse 3. Chronic alcoholic liver cirrhosis superimposed on fatty liver 4. Tobacco and cocaine abuse 5. History of chronic leukocytosis 6. GERD with hx of GI bleed PLAN: * f/u labs / advance diet / pain mgt * banana bag / librium / PRN ativan * SW consult for resources. * Patient is s/p tobacco / alcohol and cocaine cessation counselling * Further interventions per clinical course Prophylaxis: PPI / SCDs Exam/Review of Systems Vital Signs Vitals Vital Signs Date Time Temp Pulse Resp B/P Pulse Ox O2 Delivery O2 Flow Rate FiO2 01/10/17 08:20 99.5 96 16 114/70 96 01/08/17 19:58 Room Air Intake and Output 01/09/17 01/09/17 01/10/17 15:00 23:00 07:00 Intake Total 800 ml 1011.2 ml 1000 ml Balance 800 ml 1011.2 ml 1000 ml Exam Constitutional: alert, oriented, No distress Head: atraumatic, normocephalic Eyes: icteric (+++) Neck: supple Respiratory: clear to auscultation, diminished breath sounds Cardiovascular: regular rate and rhythm, No murmurs/extra sounds Gastrointestinal: bowel sounds, soft, tender, No rebound or guarding Musculoskeletal: nl extremities to inspection Extremities: No edema Skin: other (Jaundiced) Results Result Diagram: 01/09/17 0910 01/09/17 0910 Results 24 hrs Laboratory Tests Test 01/09/17 09:10 White Blood Count 26.6 H Red Blood Count 3.67 L Hemoglobin 12.6 L Hematocrit 36.3 L Mean Corpuscular Volume 98.9 Mean Corpuscular Hemoglobin 34.3 H Mean Corpuscular Hemoglobin Concent 34.7 Red Cell Distribution Width 16.7 H Platelet Count 200 Mean Platelet Volume 10.9 H Neutrophils % 67.0 Band Neutrophils % 11.0 H Lymphocytes % 12.0 L Monocytes % 7.0 Eosinophils % 3.0 Neutrophils # 17.8 H Lymphocytes # 3.2 H Monocytes # 1.9 H Eosinophils # 0.8 H Prothrombin Time 22.3 H Prothrombin Time Ratio 1.7 INR International Normalized Ratio 1.94 Activated Partial Thromboplast Time 48.5 H Sodium Level 135 Potassium Level 3.4 L Chloride Level 102 Carbon Dioxide Level 22 Anion Gap 14 Blood Urea Nitrogen 3 L Creatinine 0.43 L Glucose Level 66 #L Calcium Level 8.0 L Magnesium Level 1.9 Total Bilirubin 6.4 H Direct Bilirubin 5.00 H Indirect Bilirubin 1.4 H Aspartate Amino Transf (AST/SGOT) 75 H Alanine Aminotransferase (ALT/SGPT) 36 Alkaline Phosphatase 400 H Total Protein 7.0 # Albumin 3.6 Globulin 3.40 H Albumin/Globulin Ratio 1.05 Medications Medications Current Medications Multivitamins/ Thiamine HCl/ Folic Acid/Sodium Chloride (Mvi Adult/ Vitamin B1/ Folic Acid/NS) 1,011.2 ml @ 125 mls/ hr DAILY@09 IVPB Last administered on 01/10 08:29; Admin Dose 125 MLS/HR; Start 01/09/17 at 09:00 Chlordiazepoxide (Librium) 25 mg TID PO Last administered on 01/10/17 08:29; Admin Dose 25 MG; Start 01/08/17 at 21:00 Morphine Sulfate (morphine) 2 mg Q4H PRN IV pain Last administered on 01/10/17 07:48; Admin Dose 2 MG; Start 01/08/17 at 19:00 Lorazepam (Ativan) 1 mg Q6H PRN PO ANXIETY Last administered on 01/09/17 21:50 ; Admin Dose 1 MG; Start 01/08/17 at 19:00 Docusate Sodium (Colace) 100 mg BID PO Last administered on 01/10/17 08:29; Admin Dose 100 MG; Start 01/08/17 at 21:00 Pantoprazole 40 mg 40 mg DAILY@06 PO Last administered on 01/10/17 06:21; Admin Dose 40 MG; Start 01/09/17 at 06:00 Potassium Chloride/Dextrose/ Sod Cl (D5-1/2ns + KCl 40 Meq) 1,000 ml @ 125 mls/ hr Q8H IV Last administered on 01/10/17 06:21; Admin Dose 125 MLS/HR; Start 01/09/17 at 15:30 MILEY OLIVA Jan 10, 2017 08:54
[2017-01-10 10:47] LABS: ADD SCAN DIFF NO
[2017-01-10 10:56] LABS: ABNORMAL IP MESSAGE 1; BASOPHIL # 0.2 10^3/ul (0.0-0.1); BASOPHILS % 0.7 % (0.0-2.0); EOSINOPHILS # 1.7 10^3/ul (0.0-0.5); EOSINOPHILS % 6.7 % (0.0-7.0); HEMATOCRIT 37.9 % (42.0-52.0); HEMOGLOBIN 12.9 g/dl (14.0-18.0); LYMPHOCYTES # 1.5 10^3/ul (0.8-2.9); LYMPHOCYTES % 5.7 % (15.0-51.0); MEAN CORPUSCULAR HEMOGLOBIN 34.1 pg (29.0-33.0); MEAN CORPUSCULAR VOLUME 100.3 fl (82.0-101.0); MONOCYTE # 1.3 10^3/ul (0.3-0.9); MONOCYTES % 4.9 % (0.0-11.0); NEUTROPHIL # 20.2 10^3/ul (1.6-7.5); NEUTROPHILS % 79.5 % (39.0-77.0); PLATELET COUNT 213 10^3/UL (140-415); RED BLOOD COUNT 3.78 10^6/ul (4.70-6.10); WHITE BLOOD COUNT 25.4 10^3/ul (4.8-10.8)
[2017-01-10 11:08] LABS: BILIRUBIN,DIRECT 6.3 mg/dl (0.00-0.20); BILIRUBIN,INDIRECT 1.6 mg/dl (0-1.1); CALCIUM 8.3 mg/dl (8.4-10.2); CREATININE 0.49 mg/dl (0.61-1.24); POTASSIUM 3.8 mmol/L (3.5-5.1)
[2017-01-10 11:09] LABS: ALBUMIN 3.6 g/dl (3.3-4.9); ALBUMIN/GLOBULIN RATIO 0.97; BILIRUBIN,TOTAL 7.9 mg/dl (0.2-1.3); TOTAL PROTEIN 7.3 g/dl (6.1-8.1)
[2017-01-10 19:21] VITALS: BP 111/64; RESP 20
[2017-01-11] MEDS: D5W-0.45 NACL + KCL 40 MEQ 1,000 ML IV SCH ×4 (02:15→23:30)
[2017-01-11] MEDS: morphine 2 MG INJ IV PRN ×5 (03:51→21:36)
[2017-01-11] MEDS: PANTOPRAZOLE (EC) 40 MG TAB PO SCH (06:06)
[2017-01-11 07:30] VITALS: BP 116/69; RESP 16
[2017-01-11] MEDS: DOCUSATE SODIUM 100 MG CAP PO SCH ×2 (09:10→21:36)
[2017-01-11] MEDS: CHLORDIAZEPOXIDE 25 MG CAP PO SCH ×3 (09:11→21:36)
[2017-01-11] MEDS: MULTIVITAMINS 10 ML, THIAMINE 100 MG, FOLIC ACID 1 MG in SOD CHLORIDE 0.9% 1,000 ML IVPB SCH (09:31)
[2017-01-11 09:56] LABS: ADD SCAN DIFF NO
[2017-01-11 10:57] LABS: ABNORMAL IP MESSAGE 1; BASOPHIL # 0.2 10^3/ul (0.0-0.1); BASOPHILS % 0.7 % (0.0-2.0); EOSINOPHILS # 1.8 10^3/ul (0.0-0.5); EOSINOPHILS % 6.9 % (0.0-7.0); HEMATOCRIT 35.7 % (42.0-52.0); HEMOGLOBIN 12.1 g/dl (14.0-18.0); LYMPHOCYTES # 1.6 10^3/ul (0.8-2.9); LYMPHOCYTES % 6.2 % (15.0-51.0); MEAN CORPUSCULAR HEMOGLOBIN 33.8 pg (29.0-33.0); MEAN CORPUSCULAR HGB CONC 33.9 g/dl (32.0-37.0); MEAN CORPUSCULAR VOLUME 99.7 fl (82.0-101.0); MEAN PLATELET VOLUME 11.4 fl (7.4-10.4); MONOCYTE # 1.2 10^3/ul (0.3-0.9); MONOCYTES % 4.6 % (0.0-11.0); NEUTROPHIL # 20.7 10^3/ul (1.6-7.5); PLATELET COUNT 232 10^3/UL (140-415); RED BLOOD COUNT 3.58 10^6/ul (4.70-6.10); RED CELL DISTRIBUTION WIDTH 17.3 % (11.5-14.5); WHITE BLOOD COUNT 26.2 10^3/ul (4.8-10.8)
--- NOTE | 2017-01-11 11:01 | PN ---
Date/Time of Note Date/Time of Note DATE: 01/11/17 TIME: 10:58 Assessment/Plan VTE Prophylaxis VTE Prophylaxis Intervention: other Lines/Catheters [facility] Type (from [facility]): Peripheral IV Urinary Cath still in place: No Assessment/Plan Problems: (1) Jaundice Status: Acute Comment: This is been obstructive jaundice. This may be due to inflammation of the head of the pancreas however to verify we can order an MRCP and have GI see the patient just in case we need to do something more and also make sure this is not an cholangitis given the persistently elevated WBC (2) Alcohol abuse Status: Acute Comment: Strongly counseled again. (3) Acute pancreatitis Status: Acute Comment: Pain persists although his lipase is down Qualifiers: Pancreatitis type: alcohol induced Acute pancreatitis complication: unspecified Qualified Code: K85.20 - Alcohol-induced acute pancreatitis, unspecified complication status Subjective 24 Hr Interval Summary Free Text/Dictation Adult male sitting in bed curious as to the etiology for his abdominal pain Constitutional: no complaints (Denies fever chills or sweats) Respiratory: no complaints Cardiovascular: no complaints Gastrointestinal: other (Denies nausea vomiting or diarrhea) Genitourinary: no complaints Exam/Review of Systems Vital Signs Vitals Vital Signs Date Time Temp Pulse Resp B/P Pulse Ox O2 Delivery O2 Flow Rate FiO2 01/11/17 07:30 98.9 99 16 116/69 95 01/08/17 19:58 Room Air Intake and Output 01/10/17 01/10/17 01/11/17 15:00 23:00 07:00 Intake Total 375 ml 2731.2 ml 1350 ml Balance 375 ml 2731.2 ml 1350 ml Exam Jaundiced male sitting in bed Constitutional: alert, oriented Neck: non-tender, supple Respiratory: clear to auscultation, normal air movement Cardiovascular: nl pulses, regular rate and rhythm Gastrointestinal: hepatomegaly, soft, splenomegaly, tender (Tender at epigastrium) Results Result Diagram: 01/10/17 1035 01/10/17 1035 Medications Medications Current Medications Multivitamins/ Thiamine HCl/ Folic Acid/Sodium Chloride (Mvi Adult/ Vitamin B1/ Folic Acid/NS) 1,011.2 ml @ 125 mls/ hr DAILY@09 IVPB Last administered on 01/11t 09:31; Admin Dose 125 MLS/HR; Start 01/09/17 at 09:00 Chlordiazepoxide (Librium) 25 mg TID PO Last administered on 01/11/17 09:11; Admin Dose 25 MG; Start 01/08/17 at 21:00 Morphine Sulfate (morphine) 2 mg Q4H PRN IV pain Last administered on 01/11/17 09:12; Admin Dose 2 MG; Start 01/08/17 at 19:00 Lorazepam (Ativan) 1 mg Q6H PRN PO ANXIETY Last administered on 01/09/17 21:50 ; Admin Dose 1 MG; Start 01/08/17 at 19:00 Docusate Sodium (Colace) 100 mg BID PO Last administered on 01/11/17 09:10; Admin Dose 100 MG; Start 01/08/17 at 21:00 Pantoprazole 40 mg 40 mg DAILY@06 PO Last administered on 01/11/17 06:06; Admin Dose 40 MG; Start 01/09/17 at 06:00 Potassium Chloride/Dextrose/ Sod Cl (D5-1/2ns + KCl 40 Meq) 1,000 ml @ 125 mls/ hr Q8H IV Last administered on 01/11/17 02:15; Admin Dose 125 MLS/HR; Start 01/09/17 at 15:30 ARNULFO LASSITER MD Jan 11, 2017 11:01
--- NOTE | 2017-01-11 16:29 | RADRPT ---
PROCEDURE: MRCP. CLINICAL INDICATION: Abdominal pain. TECHNIQUE: MRCP was performed. Patient was examined without contrast. 3-D coronal rotating MIP i mages of the biliary tree are available for review. COMPARISON: CT and ultrasound, 01/08/2017 FINDINGS: Extensive artifact significantly limits evaluation. The gallbladder is contracted and suboptimally evaluated. Gallbladder wall edema is noted, likely secondary to underlying liver disease. No intra or extrahepatic biliary dilatation is identified. No evidence of common duct stone, stricture or f illing defect is seen. Pancreatic duct is grossly normal in caliber. Severe hepatomegaly is noted (26 cm), without gross evidence of focal mass. Splenomegaly is noted a s well measuring 16 cm. Pancreas, adrenal glands and kidneys are grossly unremarkable. There is no obstructive uropathy. The stomach is grossly unremarkable. Abdominal aorta is normal in caliber. Small amount of upper abdominal ascites is present. Diffuse anasarca is noted. The surrounding os seous structures are grossly unremarkable. IMPRESSION: 1. Hepatosplenomegaly is noted, without gross evidence of focal mass. 2. Gallbladder is contracted. Gallbladder wall edema is noted, likely reactive secondary to underl brian liver disease. 3. No biliary dilatation or choledocholithiasis is identified. 4. Small amount of upper abdominal ascites is present. RPTAT: HH .Herve Wills MD, MD Date Time Electronically viewed and signed by .Herve Wills MD, on 01/11/2017 16:29 .R/
[2017-01-11 20:03] VITALS: BP 114/68; RESP 16
[2017-01-11] MEDS: LORAZEPAM 1 MG TAB PO PRN (22:38)
[2017-01-12] MEDS: morphine 2 MG INJ IV PRN ×6 (01:41→22:54)
[2017-01-12] MEDS: D5W-0.45 NACL + KCL 40 MEQ 1,000 ML IV SCH ×4 (03:38→22:54)
[2017-01-12] MEDS: PANTOPRAZOLE (EC) 40 MG TAB PO SCH (05:43)
[2017-01-12 07:28] VITALS: BP 108/63; RESP 18
[2017-01-12] MEDS: MULTIVITAMINS 10 ML, THIAMINE 100 MG, FOLIC ACID 1 MG in SOD CHLORIDE 0.9% 1,000 ML IVPB SCH (09:10)
[2017-01-12] MEDS: DOCUSATE SODIUM 100 MG CAP PO SCH ×2 (09:10→20:55)
[2017-01-12] MEDS: CHLORDIAZEPOXIDE 25 MG CAP PO SCH ×3 (09:10→20:55)
--- NOTE | 2017-01-12 16:02 | PN ---
Date/Time of Note Date/Time of Note DATE: 01/12/17 TIME: 15:58 Assessment/Plan VTE Prophylaxis VTE Prophylaxis Intervention: LMWH Lines/Catheters IV Catheter Type (from [facility]): Peripheral IV Urinary Cath still in place: No Assessment/Plan Chief Complaint/Hosp Course Subjective: Moderate abdominal/back pain. No recent GI bleed or fever. Feels constipated. Objective: Vital signs stable, fever resolved Physical examination No pallor. Positive icterus no adenopathy Regular Clear Bs diminished, mild tender/distended. Distended veins. No r/r/g or flank ecchymosis No edema Assessment and plan 1. Acute alcoholic pancreatitis, stable continue hydration. 2. Alcoholic liver disease 3. Jaundice 4. Chronic liver dz [place]- coagulopathy/ ascites 5. Alcoholism; thiamine. Last drink 2 days prior to admission 6. Depression? 7. Tobacco abuse, offered patch 8. Substance abusecocaine 9. History of GI bleed 10. Chronic pancreatitis Problems: Exam/Review of Systems Vital Signs Vitals Vital Signs Date Time Temp Pulse Resp B/P Pulse Ox O2 Delivery O2 Flow Rate FiO2 01/12/17 07:28 98.5 98 18 108/63 98 01/08/17 19:58 Room Air Intake and Output 01/11/17 01/11/17 01/12/17 15:00 23:00 07:00 Intake Total 3050 ml 2301.2 ml Output Total 1300 ml 1600 ml Balance 1750 ml 701.2 ml Results Result Diagram: 01/11/17 0915 01/10/17 1035 Medications Medications Current Medications Multivitamins/ Thiamine HCl/ Folic Acid/Sodium Chloride (Mvi Adult/ Vitamin B1/ Folic Acid/NS) 1,011.2 ml @ 125 mls/ hr DAILY@09 IVPB Last administered on 01/12 09:10; Admin Dose 125 MLS/HR; Start 01/09/17 at 09:00 Chlordiazepoxide (Librium) 25 mg TID PO Last administered on 01/12/17 13:48; Admin Dose 25 MG; Start 01/08/17 at 21:00 Morphine Sulfate (morphine) 2 mg Q4H PRN IV pain Last administered on 01/12/17 14:25; Admin Dose 2 MG; Start 01/08/17 at 19:00 Lorazepam (Ativan) 1 mg Q6H PRN PO ANXIETY Last administered on 01/11/17 22:38 ; Admin Dose 1 MG; Start 01/08/17 at 19:00 Docusate Sodium (Colace) 100 mg BID PO Last administered on 01/12/17 09:10; Admin Dose 100 MG; Start 01/08/17 at 21:00 Pantoprazole 40 mg 40 mg DAILY@06 PO Last administered on 01/12/17 05:43; Admin Dose 40 MG; Start 01/09/17 at 06:00 Potassium Chloride/Dextrose/ Sod Cl (D5-1/2ns + KCl 40 Meq) 1,000 ml @ 125 mls/ hr Q8H IV Last administered on 01/12/17 03:38; Admin Dose 125 MLS/HR; Start 01/09/17 at 15:30 HERBERT ESPARZA MD Jan 12, 2017 16:02
[2017-01-12] MEDS ORDERED: MAGNESIUM HYDROXIDE 30ML CUP PO ONE (16:30)
[2017-01-12] MEDS: ENOXAPARIN 40 MG/0.4 ML SYG SC SCH (17:41)
--- NOTE | 2017-01-12 18:32 | CONS ---
Date/Time of Note Date/Time of Note DATE: 01/12/17 TIME: 18:21 Assessment/Plan Assessment/Plan Additional Assessment/Plan Assessment: Resolving pancreatitis Acute alcoholic hepatitis, discriminant function over 42.9 which denotes high mortality and benefit for steroid treatment Chronic alcoholism Polysubstance abuse Plan: Methylprednisolone 32 mg daily 28 days then taper over 2 weeks Advance diet as tolerated Abstinence critical to his recovery and lifespan Consultation Date/Type/Reason Admit Date/Time January 08, 2017 Date of Consultation: Jan 12, 2017 Type of Consultation: GI Reason for Consultation Abdominal pain Jaundice Hx of Present Illness 31-year-old man with significant history of alcohol abuse, he states she has had at least 3 episodes of pancreatitis requiring hospitalization and at least one episode of severe jaundice that required several weeks to clear. Unfortunately the patient has not been able to discontinue alcohol and states he drinks on a daily basis. He is hospitalized with complaints of epigastric abdominal pain that resembled those that he experienced when he had pancreatitis in addition he is significantly jaundiced with liver function tests suggestive of alcoholic hepatitis and coagulopathy. CT of the abdomen showed evidence of pancreatitis and the patient has been treated as such. At the present time the patient reports minimal abdominal pain, he is tolerating clear liquid diet without difficulty. He understands the nature of his problems related to alcoholism and that abstinence will be critically important to his well-being. Discriminant function evaluation for alcoholic hepatitis shows a score of 42.9 which denotes high mortality and suggest significant benefit to steroid therapy i.e. methylprednisolone 32 mg daily 28 days and then taper over 2 weeks Constitutional: no complaints (Denies fever chills or sweats) Respiratory: no complaints Cardiovascular: no complaints Gastrointestinal: other (Denies nausea vomiting or diarrhea), pain (Improved) Genitourinary: no complaints Skin: other (Jaundice) Neurologic: no complaints Endocrine: no complaints Lymphatic: no complaints Psychological: no complaints Past Medical History Alcoholism Recurrent pancreatitis Alcoholic liver disease Medical History: other Past Surgical History Past Surgical Hx: no surgical history Family History Significant Family History: no pertinent family hx Social History Alcohol Use: heavy Smoking Status: Former smoker Drug Use: cocaine Exam/Review of Systems Vital Signs Vitals Vital Signs Date Time Temp Pulse Resp B/P Pulse Ox O2 Delivery O2 Flow Rate FiO2 01/12/17 07:28 98.5 98 18 108/63 98 01/08/17 19:58 Room Air Intake and Output 01/11/17 01/11/17 01/12/17 15:00 23:00 07:00 Intake Total 3050 ml 2301.2 ml Output Total 1300 ml 1600 ml Balance 1750 ml 701.2 ml Exam Constitutional: alert, oriented, No distress Head: atraumatic, normocephalic Eyes: icteric (+++) Neck: supple Respiratory: clear to auscultation, diminished breath sounds Cardiovascular: regular rate and rhythm, No murmurs/extra sounds Gastrointestinal: Distended, fullness upper abdomen, bowel sounds, soft, mild epigastric tenderness, No rebound or guarding Musculoskeletal: nl extremities to inspection Extremities: No edema Skin: other (Jaundiced) Results Result Diagram: 01/11/17 0915 01/10/17 1035 Medications Medications Current Medications Chlordiazepoxide (Librium) 25 mg TID PO Last administered on 01/12/17 13:48; Admin Dose 25 MG; Start 01/08/17 at 21:00 Morphine Sulfate (morphine) 2 mg Q4H PRN IV pain Last administered on 01/12/17 14:25; Admin Dose 2 MG; Start 01/08/17 at 19:00 Lorazepam (Ativan) 1 mg Q6H PRN PO ANXIETY Last administered on 01/11/17 22:38 ; Admin Dose 1 MG; Start 01/08/17 at 19:00 Docusate Sodium (Colace) 100 mg BID PO Last administered on 01/12/17 09:10; Admin Dose 100 MG; Start 01/08/17 at 21:00 Pantoprazole 40 mg 40 mg DAILY@06 PO Last administered on 01/12/17 05:43; Admin Dose 40 MG; Start 01/09/17 at 06:00 Potassium Chloride/Dextrose/ Sod Cl (D5-1/2ns + KCl 40 Meq) 1,000 ml @ 75 mls/ hr [id number] IV Last administered on 01/12/17 03:38; Admin Dose 125 MLS/HR; Start 01/09/17 at 15:30 Enoxaparin Sodium (Lovenox) 40 mg DAILY SC Last administered on 01/12/17 17:41 ; Admin Dose 40 MG; Start 01/12/17 at 16:30 Thiamine HCl (Vitamin B1) 100 mg DAILY PO ; Start 01/13/17 at 09:00 IFTIKHAR GONZALZE MD Jan 12, 2017 18:31
[2017-01-12 20:04] VITALS: BP 114/67; RESP 18
[2017-01-12] MEDS: METHYLPREDNISOLONE 4 MG TAB PO SCH (20:56)
[2017-01-12] MEDS: LORAZEPAM 1 MG TAB PO PRN (21:45)
[2017-01-13] MEDS: D5W-0.45 NACL + KCL 40 MEQ 1,000 ML IV SCH (03:13)
[2017-01-13] MEDS: morphine 2 MG INJ IV PRN ×4 (04:41→20:34)
[2017-01-13 05:42] LABS: ABNORMAL IP MESSAGE 1; HEMATOCRIT 36.8 % (42.0-52.0); HEMOGLOBIN 12.3 g/dl (14.0-18.0); MEAN CORPUSCULAR HEMOGLOBIN 33.5 pg (29.0-33.0); MEAN CORPUSCULAR HGB CONC 33.4 g/dl (32.0-37.0); MEAN CORPUSCULAR VOLUME 100.3 fl (82.0-101.0); MEAN PLATELET VOLUME 11.1 fl (7.4-10.4); PLATELET COUNT 272 10^3/UL (140-415); RED BLOOD COUNT 3.67 10^6/ul (4.70-6.10); RED CELL DISTRIBUTION WIDTH 17.6 % (11.5-14.5); WHITE BLOOD COUNT 34.5 10^3/ul (4.8-10.8)
[2017-01-13] MEDS: PANTOPRAZOLE (EC) 40 MG TAB PO SCH (05:42)
[2017-01-13 06:03] LABS: INR 1.65; PROTIME 19.6 Sec (12.2-14.2); PT RATIO 1.5
[2017-01-13 06:19] LABS: ALBUMIN 3.3 g/dl (3.3-4.9); ALBUMIN/GLOBULIN RATIO 0.91; BILIRUBIN,INDIRECT 1.8 mg/dl (0-1.1); BILIRUBIN,TOTAL 9.8 mg/dl (0.2-1.3); CALCIUM 8.3 mg/dl (8.4-10.2); CREATININE 0.39 mg/dl (0.61-1.24); MAGNESIUM 2.1 mg/dl (1.7-2.5); PHOSPHORUS 3.7 mg/dl (2.5-4.9); POTASSIUM 4.2 mmol/L (3.5-5.1); TOTAL PROTEIN 6.9 g/dl (6.1-8.1)
[2017-01-13 06:44] LABS: THYROID STIMULATING HORMONE 1.42 MIU/L (0.465-4.680)
[2017-01-13 08:05] VITALS: BP 113/66; RESP 20
[2017-01-13 09:38] LABS: EOSINOPHILS # 2.4 10^3/ul (0.0-0.5); MONOCYTE # 1.4 10^3/ul (0.3-0.9); NEUTROPHIL # 27.6 10^3/ul (1.6-7.5); PLATELET ESTIMATE PLT APPEAR ADEQUATE
[2017-01-13] MEDS: CHLORDIAZEPOXIDE 25 MG CAP PO SCH ×3 (10:23→20:31)
[2017-01-13] MEDS: DOCUSATE SODIUM 100 MG CAP PO SCH ×2 (10:23→20:31)
[2017-01-13] MEDS: THIAMINE 100 MG TAB PO SCH (10:23)
[2017-01-13] MEDS: METHYLPREDNISOLONE 4 MG TAB PO SCH (10:26)
[2017-01-13] MEDS: ENOXAPARIN 40 MG/0.4 ML SYG SC SCH (10:33)
--- NOTE | 2017-01-13 11:55 | PN ---
Date/Time of Note Date/Time of Note DATE: 01/13/17 TIME: 11:48 Assessment/Plan VTE Prophylaxis VTE Prophylaxis Intervention: LMWH Lines/Catheters IV Catheter Type (from [facility]): Peripheral IV Urinary Cath still in place: No Assessment/Plan Chief Complaint/Hosp Course S: 01/12 mod abd/back pain. No recent GI bleed or fever. Feels constipated. 01/13: Less pain. Awake alert no fever or GI bleed. O: Vss, fever resolved PE No pallor. + icterus; no adenopathy Reg Clear Bs diminished, nt; mild distended. Distended veins. No r/r/g or flank ecchymosis No edema A/P 1. Ac alcoholic pancreatitis, stable cont hydration. 2. Alcoholic liver dz-steroids added. If no fever or GI bleed and tolerating diet, anticipate discharge Thurs w follow-up. discriminant function > 42.9 = high mortality and benefit for steroid treatment; methylprednisolone 32 mg qd 28 days then taper over 2 wks 3. Jaundice 4. Chr liver dz sequ[place]- coagulopathy/ ascites 5. Alcoholism; thiamine. Last drink 2 days prior to admission 6. Depression? 7. Tobacco abuse, offered patch 8. Substance abuse/ cocaine 9. Ho GI bleed 10. Chr pancreatitis Problems: Exam/Review of Systems Vital Signs Vitals Vital Signs Date Time Temp Pulse Resp B/P Pulse Ox O2 Delivery O2 Flow Rate FiO2 01/13/17 08:05 98.2 93 20 113/66 94 Intake and Output 01/12/17 01/12/17 01/13/17 15:00 23:00 07:00 Intake Total 2020 ml Balance 2020 ml Results Result Diagram: 01/13/17 0520 01/13/17 0520 Results 24 hrs Laboratory Tests Test 01/13/17 05:20 White Blood Count 34.5 #H Red Blood Count 3.67 L Hemoglobin 12.3 L Hematocrit 36.8 L Mean Corpuscular Volume 100.3 Mean Corpuscular Hemoglobin 33.5 H Mean Corpuscular Hemoglobin Concent 33.4 Red Cell Distribution Width 17.6 H Platelet Count 272 Mean Platelet Volume 11.1 H Neutrophils % 80.0 H Band Neutrophils % 6.0 H Lymphocytes % 3.0 L Monocytes % 4.0 Eosinophils % 7.0 Neutrophils # 27.6 H Lymphocytes # 1.0 Monocytes # 1.4 H Eosinophils # 2.4 H Platelet Estimate PLT APPEAR ADEQUATE Prothrombin Time 19.6 H Prothrombin Time Ratio 1.5 INR International Normalized Ratio 1.65 Sodium Level 137 Potassium Level 4.2 Chloride Level 108 Carbon Dioxide Level 21 Anion Gap 12 Blood Urea Nitrogen 3 L Creatinine 0.39 L Glucose Level 152 Hemoglobin A1c 5.2 Calcium Level 8.3 L Phosphorus Level 3.7 Magnesium Level 2.1 Total Bilirubin 9.8 H Direct Bilirubin 8.00 H Indirect Bilirubin 1.8 H Aspartate Amino Transf (AST/SGOT) 44 Alanine Aminotransferase (ALT/SGPT) 38 Alkaline Phosphatase 323 H Total Protein 6.9 Albumin 3.3 Globulin 3.60 H Albumin/Globulin Ratio 0.91 Lipase 14 L Thyroid Stimulating Hormone (TSH) 1.420 Medications Medications Current Medications Chlordiazepoxide (Librium) 25 mg TID PO Last administered on 01/13/17 10:23; Admin Dose 25 MG; Start 01/08/17 at 21:00 Morphine Sulfate (morphine) 2 mg Q4H PRN IV pain Last administered on 01/13/17 09:56; Admin Dose 2 MG; Start 01/08/17 at 19:00 Lorazepam (Ativan) 1 mg Q6H PRN PO ANXIETY Last administered on 01/12/17 21:45 ; Admin Dose 1 MG; Start 01/08/17 at 19:00 Docusate Sodium (Colace) 100 mg BID PO Last administered on 01/13/17 10:23; Admin Dose 100 MG; Start 01/08/17 at 21:00 Pantoprazole 40 mg 40 mg DAILY@06 PO Last administered on 01/13/17 05:42; Admin Dose 40 MG; Start 01/09/17 at 06:00 Potassium Chloride/Dextrose/ Sod Cl (D5-1/2ns + KCl 40 Meq) 1,000 ml @ 75 mls/ hr [id number] IV Last administered on 01/12/17 22:54; Admin Dose 75 MLS/HR; Start 01/09/17 at 15:30 Enoxaparin Sodium (Lovenox) 40 mg DAILY SC Last administered on 01/13/17 10:33 ; Admin Dose 40 MG; Start 01/12/17 at 16:30 Thiamine HCl (Vitamin B1) 100 mg DAILY PO Last administered on 01/13/17 10:23; Admin Dose 100 MG; Start 01/13/17 at 09:00 Methylprednisolone (Medrol) 32 mg DAILY PO Last administered on 01/13/17t 10:26 ; Admin Dose 32 MG; Start 01/12/17 at 19:00; Stop 02/08/17 at 09:01 HERBERT ESPARZA MD Jan 13, 2017 11:55
[2017-01-13] MEDS: NS + KCL 20 MEQ 1,000 ML IV SCH (12:51)
--- NOTE | 2017-01-13 16:21 | PN ---
Date/Time of Note Date/Time of Note DATE: 01/13/17 TIME: 16:19 Assessment/Plan VTE Prophylaxis VTE Prophylaxis Intervention: SCD's Lines/Catheters IV Catheter Type (from Nrs): Peripheral IV Urinary Cath still in place: No Assessment/Plan Assessment/Plan Assessment: Resolving pancreatitis Acute alcoholic hepatitis, discriminant function over 42.9 which denotes high mortality and benefit for steroid treatment Chronic alcoholism Polysubstance abuse Plan: Methylprednisolone 32 mg daily 28 days then taper over 2 weeks Advance diet as tolerated Abstinence critical to his recovery and lifespan Subjective 24 Hr Interval Summary Free Text/Dictation * Course reviewed with RN * Patient seen and examined * Liver function test still elevated ,no abdominal pain Exam/Review of Systems Vital Signs Vitals Vital Signs Date Time Temp Pulse Resp B/P Pulse Ox O2 Delivery O2 Flow Rate FiO2 01/13/17 08:05 98.2 93 20 113/66 94 Intake and Output 01/12/17 01/12/17 01/13/17 15:00 23:00 07:00 Intake Total 2020 ml Balance 2020 ml Exam Constitutional: alert, oriented Eyes: icteric, nl conjunctiva Neck: non-tender, supple Respiratory: clear to auscultation, normal air movement Cardiovascular: nl pulses, regular rate and rhythm Gastrointestinal: soft Musculoskeletal: nl extremities to inspection, nl gait and stance Extremities: normal pulses Results Result Diagram: 01/13/17 0520 01/13/17 0520 Results 24 hrs Laboratory Tests Test 01/13/17 05:20 White Blood Count 34.5 #H Red Blood Count 3.67 L Hemoglobin 12.3 L Hematocrit 36.8 L Mean Corpuscular Volume 100.3 Mean Corpuscular Hemoglobin 33.5 H Mean Corpuscular Hemoglobin Concent 33.4 Red Cell Distribution Width 17.6 H Platelet Count 272 Mean Platelet Volume 11.1 H Neutrophils % 80.0 H Band Neutrophils % 6.0 H Lymphocytes % 3.0 L Monocytes % 4.0 Eosinophils % 7.0 Neutrophils # 27.6 H Lymphocytes # 1.0 Monocytes # 1.4 H Eosinophils # 2.4 H Platelet Estimate PLT APPEAR ADEQUATE Prothrombin Time 19.6 H Prothrombin Time Ratio 1.5 INR International Normalized Ratio 1.65 Sodium Level 137 Potassium Level 4.2 Chloride Level 108 Carbon Dioxide Level 21 Anion Gap 12 Blood Urea Nitrogen 3 L Creatinine 0.39 L Glucose Level 152 Hemoglobin A1c 5.2 Calcium Level 8.3 L Phosphorus Level 3.7 Magnesium Level 2.1 Total Bilirubin 9.8 H Direct Bilirubin 8.00 H Indirect Bilirubin 1.8 H Aspartate Amino Transf (AST/SGOT) 44 Alanine Aminotransferase (ALT/SGPT) 38 Alkaline Phosphatase 323 H Total Protein 6.9 Albumin 3.3 Globulin 3.60 H Albumin/Globulin Ratio 0.91 Lipase 14 L Thyroid Stimulating Hormone (TSH) 1.420 Medications Medications Current Medications Chlordiazepoxide (Librium) 25 mg TID PO Last administered on 01/13/17 12:51; Admin Dose 25 MG; Start 01/08/17 at 21:00 Morphine Sulfate (morphine) 2 mg Q4H PRN IV pain Last administered on 01/13/17 16:04; Admin Dose 2 MG; Start 01/08/17 at 19:00 Lorazepam (Ativan) 1 mg Q6H PRN PO ANXIETY Last administered on 01/12/17 21:45 ; Admin Dose 1 MG; Start 01/08/17 at 19:00 Docusate Sodium (Colace) 100 mg BID PO Last administered on 01/13/17 10:23; Admin Dose 100 MG; Start 01/08/17 at 21:00 Pantoprazole (Protonix Tab) 40 mg DAILY@06 PO Last administered on 01/13/17 05: 42; Admin Dose 40 MG; Start 01/09/17 at 06:00 Enoxaparin Sodium (Lovenox) 40 mg DAILY SC Last administered on 01/13/17 10:33 ; Admin Dose 40 MG; Start 01/12/17 at 16:30 Thiamine HCl (Vitamin B1) 100 mg DAILY PO Last administered on 01/13/17 10:23; Admin Dose 100 MG; Start 01/13/17 at 09:00 Methylprednisolone 32 mg 32 mg DAILY PO Last administered on 01/13/17 10:26; Admin Dose 32 MG; Start 01/12/17 at 19:00; Stop 02/08/17 at 09:01 Potassium Chloride/Sodium Chloride (NS-KCl 20 Meq) 1,000 ml @ 50 mls/hr Q20H IV Last administered on 01/13/17 12:51; Admin Dose 50 MLS/HR; Start 01/13/17 at 12:00 Lactobacillus Acidophilus/ Rhamnosus (Culturelle) 1 cap BID PO ; Start 01/13/17 at 21:00 IFTIKHAR GONZALEZ MD Jan 13, 2017 16:21
[2017-01-13 19:17] VITALS: BP 120/69; RESP 16
[2017-01-13] MEDS: LACTOBACILLUS RHAMNOSUS CAP PO SCH (20:31)
[2017-01-14] MEDS: morphine 2 MG INJ IV PRN ×5 (01:01→19:15)
[2017-01-14] MEDS: PANTOPRAZOLE (EC) 40 MG TAB PO SCH (05:35)
[2017-01-14 06:16] LABS: ADD SCAN DIFF NO
[2017-01-14 06:22] LABS: ABNORMAL IP MESSAGE 1; BASOPHIL # 0.1 10^3/ul (0.0-0.1); BASOPHILS % 0.3 % (0.0-2.0); EOSINOPHILS # 0.2 10^3/ul (0.0-0.5); EOSINOPHILS % 0.4 % (0.0-7.0); HEMOGLOBIN 11.8 g/dl (14.0-18.0); LYMPHOCYTES # 1.9 10^3/ul (0.8-2.9); LYMPHOCYTES % 5.3 % (15.0-51.0); MEAN CORPUSCULAR HEMOGLOBIN 33.6 pg (29.0-33.0); MEAN CORPUSCULAR HGB CONC 33.7 g/dl (32.0-37.0); MEAN CORPUSCULAR VOLUME 99.7 fl (82.0-101.0); MONOCYTE # 1.4 10^3/ul (0.3-0.9); MONOCYTES % 3.8 % (0.0-11.0); NEUTROPHILS % 87.1 % (39.0-77.0); PLATELET COUNT 337 10^3/UL (140-415); RED BLOOD COUNT 3.51 10^6/ul (4.70-6.10); RED CELL DISTRIBUTION WIDTH 18.3 % (11.5-14.5); WHITE BLOOD COUNT 36.7 10^3/ul (4.8-10.8)
[2017-01-14 06:45] LABS: ALBUMIN 3.1 g/dl (3.3-4.9); ALBUMIN/GLOBULIN RATIO 0.88; BILIRUBIN,INDIRECT 1.6 mg/dl (0-1.1); BILIRUBIN,TOTAL 7.6 mg/dl (0.2-1.3); CALCIUM 8.4 mg/dl (8.4-10.2); CREATININE 0.41 mg/dl (0.61-1.24); POTASSIUM 3.9 mmol/L (3.5-5.1); TOTAL PROTEIN 6.6 g/dl (6.1-8.1)
[2017-01-14 07:47] VITALS: BP 102/61; RESP 18
[2017-01-14] MEDS: NS + KCL 20 MEQ 1,000 ML IV SCH ×2 (08:00→11:07)
[2017-01-14] MEDS: THIAMINE 100 MG TAB PO SCH (08:40)
[2017-01-14] MEDS: CHLORDIAZEPOXIDE 25 MG CAP PO SCH ×3 (08:40→20:20)
[2017-01-14] MEDS: METHYLPREDNISOLONE 4 MG TAB PO SCH (08:40)
[2017-01-14] MEDS: DOCUSATE SODIUM 100 MG CAP PO SCH ×2 (08:40→20:20)
[2017-01-14] MEDS: LACTOBACILLUS RHAMNOSUS CAP PO SCH ×2 (08:40→20:20)
[2017-01-14] MEDS: ENOXAPARIN 40 MG/0.4 ML SYG SC SCH (09:11)
--- NOTE | 2017-01-14 13:22 | PN ---
Date/Time of Note Date/Time of Note DATE: 01/14/17 TIME: 13:18 Assessment/Plan VTE Prophylaxis VTE Prophylaxis Intervention: ambulation Lines/Catheters [facility] Peripheral IV Urinary Cath still in place: No Assessment/Plan Assessment/Plan Assessment: Pancreatitis resolved Acute alcoholic hepatitis, discriminant function over 42.9 which denotes high mortality and benefit for steroid treatment Chronic alcoholism Polysubstance abuse Plan: Methylprednisolone 32 mg daily 28 days then taper over 2 weeks Regular diet Abstinence critical to his recovery and lifespan Subjective 24 Hr Interval Summary Free Text/Dictation * Course reviewed with RN * Patient seen and examined * Denies any abdominal pain * Elevated Total bilirubin 7.6.AST 48,alkaline phosphatase 315 Exam/Review of Systems Vital Signs Vitals Vital Signs Date Time Temp Pulse Resp B/P Pulse Ox O2 Delivery O2 Flow Rate FiO2 01/14/17 07:47 97.7 79 18 102/61 97 Intake and Output 01/13/17 01/13/17 01/14/17 15:00 23:00 07:00 Intake Total 1240 ml 680 ml 2880 ml Output Total 1000 ml Balance 1240 ml 680 ml 1880 ml Exam Constitutional: alert, oriented Eyes: icteric Neck: non-tender, supple Respiratory: clear to auscultation, normal air movement Cardiovascular: nl pulses, regular rate and rhythm Gastrointestinal: bowel sounds, distended, soft, No rebound or guarding Musculoskeletal: nl extremities to inspection, nl gait and stance Extremities: normal pulses 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: nl mental status Results Result Diagram: 01/14/17 0533 01/14/17 0533 Results 24 hrs Laboratory Tests Test 01/14/17 05:33 White Blood Count 36.7 H Red Blood Count 3.51 L Hemoglobin 11.8 L Hematocrit 35.0 L Mean Corpuscular Volume 99.7 Mean Corpuscular Hemoglobin 33.6 H Mean Corpuscular Hemoglobin Concent 33.7 Red Cell Distribution Width 18.3 H Platelet Count 337 # Mean Platelet Volume 11.0 H Neutrophils % 87.1 H Lymphocytes % 5.3 L Monocytes % 3.8 Eosinophils % 0.4 Basophils % 0.3 Nucleated Red Blood Cells % 0.0 Neutrophils # 32.0 H Lymphocytes # 1.9 Monocytes # 1.4 H Eosinophils # 0.2 Basophils # 0.1 Nucleated Red Blood Cells # 0.0 Sodium Level 141 Potassium Level 3.9 Chloride Level 109 Carbon Dioxide Level 22 Anion Gap 14 Blood Urea Nitrogen 5 L Creatinine 0.41 L Glucose Level 96 # Calcium Level 8.4 Total Bilirubin 7.6 #H Direct Bilirubin 6.00 H Indirect Bilirubin 1.6 H Aspartate Amino Transf (AST/SGOT) 48 H Alanine Aminotransferase (ALT/SGPT) 37 Alkaline Phosphatase 315 H Total Protein 6.6 Albumin 3.1 L Globulin 3.50 H Albumin/Globulin Ratio 0.88 Medications Medications Current Medications Chlordiazepoxide (Librium) 25 mg TID PO Last administered on 01/14/17 12:14; Admin Dose 25 MG; Start 01/08/17 at 21:00 Morphine Sulfate (morphine) 2 mg Q4H PRN IV pain Last administered on 01/14/17 11:07; Admin Dose 2 MG; Start 01/08/17 at 19:00 Lorazepam (Ativan) 1 mg Q6H PRN PO ANXIETY Last administered on 01/12/17 21:45 ; Admin Dose 1 MG; Start 01/08/17 at 19:00 Docusate Sodium (Colace) 100 mg BID PO Last administered on 01/14/17 08:40; Admin Dose 100 MG; Start 01/08/17 at 21:00 Pantoprazole (Protonix Tab) 40 mg DAILY@06 PO Last administered on 01/14/17 05: 35; Admin Dose 40 MG; Start 01/09/17 at 06:00 Enoxaparin Sodium (Lovenox) 40 mg DAILY SC Last administered on 01/14/17 09:11 ; Admin Dose 40 MG; Start 01/12/17 at 16:30 Thiamine HCl (Vitamin B1) 100 mg DAILY PO Last administered on 01/14/17 08:40; Admin Dose 100 MG; Start 01/13/17 at 09:00 Methylprednisolone 32 mg 32 mg DAILY PO Last administered on 01/14/17 08:40; Admin Dose 32 MG; Start 01/12/17 at 19:00; Stop 02/08/17 at 09:01 Potassium Chloride/Sodium Chloride (NS-KCl 20 Meq) 1,000 ml @ 50 mls/hr Q20H IV Last administered on 01/14/17 11:07; Admin Dose 50 MLS/HR; Start 01/13/17 at 12:00 Lactobacillus Acidophilus/ Rhamnosus (Culturelle) 1 cap BID PO Last administered on 01/14/17t 08:40; Admin Dose 1 CAP; Start 01/13/17 at 21:00 CROW ALEJANDRO NP Jan 14, 2017 13:22
--- NOTE | 2017-01-14 14:27 | PN ---
Date/Time of Note Date/Time of Note DATE: 01/14/17 TIME: 14:25 Assessment/Plan VTE Prophylaxis VTE Prophylaxis Intervention: LMWH Lines/Catheters IV Catheter Type (from Nrs): Peripheral IV Urinary Cath still in place: No Assessment/Plan Chief Complaint/Hosp Course S: 6/5 mod abd/back pain. No recent GI bleed or fever. Feels constipated. 6/6: Less pain. Awake alert no fever or GI bleed. 6/7: No pain GI bleed or fever. Awake alert follows commands. O: Vss PE No pallor. + icterus Reg Clear Bs dimin, nt; mild distended. Distended veins. No r/r/g or flank ecchymosis No edema A/P 1. Ac alcoholic pancreatitis, stable cont hydration. 2. Alcoholic liver dz; steroids added. anticipate dc home Thurs w follow-up. discriminant function > 42.9 = high mortality and benefit for steroid treatment ; methylprednisolone 32 mg qd 28 days then taper over 2 wks 3. Jaundice 4. Chr liver dz sequela- coagulopathy/ ascites 5. Alcoholism; thiamine. Last drink 2 days prior to admission 6. Depression? 7. Tobacco abuse, offered patch 8. Substance abuse/ cocaine 9. Ho GI bleed 10.Chr pancreatitis 11. Leukocytosis; probable leukemoid reaction. Problems: Exam/Review of Systems Vital Signs Vitals Vital Signs Date Time Temp Pulse Resp B/P Pulse Ox O2 Delivery O2 Flow Rate FiO2 01/14/17 07:47 97.7 79 18 102/61 97 Intake and Output 01/13/17 01/13/17 01/14/17 15:00 23:00 07:00 Intake Total 1240 ml 680 ml 2880 ml Output Total 1000 ml Balance 1240 ml 680 ml 1880 ml Results Result Diagram: 01/14/17 0533 01/14/17 0533 Results 24 hrs Laboratory Tests Test 01/14/17 05:33 White Blood Count 36.7 H Red Blood Count 3.51 L Hemoglobin 11.8 L Hematocrit 35.0 L Mean Corpuscular Volume 99.7 Mean Corpuscular Hemoglobin 33.6 H Mean Corpuscular Hemoglobin Concent 33.7 Red Cell Distribution Width 18.3 H Platelet Count 337 # Mean Platelet Volume 11.0 H Neutrophils % 87.1 H Lymphocytes % 5.3 L Monocytes % 3.8 Eosinophils % 0.4 Basophils % 0.3 Nucleated Red Blood Cells % 0.0 Neutrophils # 32.0 H Lymphocytes # 1.9 Monocytes # 1.4 H Eosinophils # 0.2 Basophils # 0.1 Nucleated Red Blood Cells # 0.0 Sodium Level 141 Potassium Level 3.9 Chloride Level 109 Carbon Dioxide Level 22 Anion Gap 14 Blood Urea Nitrogen 5 L Creatinine 0.41 L Glucose Level 96 # Calcium Level 8.4 Total Bilirubin 7.6 #H Direct Bilirubin 6.00 H Indirect Bilirubin 1.6 H Aspartate Amino Transf (AST/SGOT) 48 H Alanine Aminotransferase (ALT/SGPT) 37 Alkaline Phosphatase 315 H Total Protein 6.6 Albumin 3.1 L Globulin 3.50 H Albumin/Globulin Ratio 0.88 Medications Medications Current Medications Chlordiazepoxide (Librium) 25 mg TID PO Last administered on 01/14/17 12:14; Admin Dose 25 MG; Start 01/08/17 at 21:00 Morphine Sulfate (morphine) 2 mg Q4H PRN IV pain Last administered on 01/14/17 11:07; Admin Dose 2 MG; Start 01/08/17 at 19:00 Lorazepam (Ativan) 1 mg Q6H PRN PO ANXIETY Last administered on 01/12/17 21:45 ; Admin Dose 1 MG; Start 01/08/17 at 19:00 Docusate Sodium (Colace) 100 mg BID PO Last administered on 01/14/17 08:40; Admin Dose 100 MG; Start 01/08/17 at 21:00 Pantoprazole (Protonix Tab) 40 mg DAILY@06 PO Last administered on 01/14/17 05: 35; Admin Dose 40 MG; Start 01/09/17 at 06:00 Enoxaparin Sodium (Lovenox) 40 mg DAILY SC Last administered on 01/14/17 09:11 ; Admin Dose 40 MG; Start 01/12/17 at 16:30 Thiamine HCl (Vitamin B1) 100 mg DAILY PO Last administered on 01/14/17 08:40; Admin Dose 100 MG; Start 01/13/17 at 09:00 Methylprednisolone 32 mg 32 mg DAILY PO Last administered on 01/14/17 08:40; Admin Dose 32 MG; Start 01/12/17 at 19:00; Stop 02/08/17 at 09:01 Potassium Chloride/Sodium Chloride (NS-KCl 20 Meq) 1,000 ml @ 50 mls/hr Q20H IV Last administered on 01/14/17 11:07; Admin Dose 50 MLS/HR; Start 01/13/17 at 12:00 Lactobacillus Acidophilus/ Rhamnosus (Culturelle) 1 cap BID PO Last administered on 01/14/17 08:40; Admin Dose 1 CAP; Start 01/13/17 at 21:00 HERBERT ESPARZA MD Jan 14, 2017 14:27
[2017-01-14 20:56] VITALS: BP 113/56; RESP 18
[2017-01-14] MEDS ORDERED: ZOLPIDEM 5 MG TAB PO PRN (21:30)
[2017-01-14] MEDS: morphine 4 MG/ML VIAL IV PRN (23:04)
[2017-01-15] MEDS: PANTOPRAZOLE (EC) 40 MG TAB PO SCH (05:47)
[2017-01-15] MEDS: morphine 4 MG/ML VIAL IV PRN ×3 (05:48→13:52)
[2017-01-15 08:46] VITALS: BP 106/65; RESP 18
[2017-01-15] MEDS: DOCUSATE SODIUM 100 MG CAP PO SCH (09:08)
[2017-01-15] MEDS: LACTOBACILLUS RHAMNOSUS CAP PO SCH (09:08)
[2017-01-15] MEDS: CHLORDIAZEPOXIDE 25 MG CAP PO SCH ×2 (09:08→13:02)
[2017-01-15] MEDS: THIAMINE 100 MG TAB PO SCH (09:08)
[2017-01-15] MEDS: METHYLPREDNISOLONE 4 MG TAB PO SCH (09:09)
[2017-01-15] MEDS: NS + KCL 20 MEQ 1,000 ML IV SCH (09:10)
[2017-01-15] MEDS: ENOXAPARIN 40 MG/0.4 ML SYG SC SCH (09:27)
--- NOTE | 2017-01-15 14:04 | PDOCDIS ---
Discharge Instructions DIAGNOSIS Discharge Diagnosis: jaundice CONDITION Patient Condition: Stable HOME CARE INSTRUCTIONS: Special Diet: 1800 MINE ACTIVITY: Activity Restrictions: Slowly Increase Activity Do not Drive FOLLOW UP/APPOINTMENTS Appointments appt primary 1-2wks Dr Ospina 2wks AA appt if he requests. HERBERT ESPARZA MD Jan 15, 2017 14:04
[2017-01-15] MEDS ORDERED: DOCU-216 PO (14:09)
[2017-01-15] MEDS ORDERED: PANT40TA4 PO (14:09)
[2017-01-15] MEDS ORDERED: PROP10TA6 PO (14:09)
[2017-01-15] MEDS ORDERED: Thiamine PO (14:10)
[2017-01-15] MEDS ORDERED: ERGO500037 PO (14:16)
--- NOTE | 2017-01-15 14:44 | PN ---
Date/Time of Note Date/Time of Note DATE: 01/15/17 TIME: 14:41 Assessment/Plan VTE Prophylaxis VTE Prophylaxis Intervention: ambulation Lines/Catheters IV Catheter Type (from Nrs): Peripheral IV Urinary Cath still in place: No Assessment/Plan Assessment/Plan Acute alcoholic hepatitis, discriminant function over 42.9 which denotes high mortality and benefit for steroid treatment Chronic alcoholism Polysubstance abuse Plan: Methylprednisolone 32 mg daily 28 days then taper over 2 weeks Advance diet as tolerated Abstinence critical to his recovery and lifespan stable for outpatient management follow up after 4 weeks Subjective 24 Hr Interval Summary Free Text/Dictation * Course reviewed with RN * Patient seen and examined * jaundiced,denies abdominal pain Exam/Review of Systems Vital Signs Vitals Vital Signs Date Time Temp Pulse Resp B/P Pulse Ox O2 Delivery O2 Flow Rate FiO2 01/15/17 08:46 97.9 89 18 106/65 96 Intake and Output 01/14/17 01/14/17 01/15/17 15:00 23:00 07:00 Intake Total 320 ml 2400 ml 1800 ml Output Total 1590 ml 2100 ml Balance 320 ml 810 ml -300 ml Exam Constitutional: alert, oriented Eyes: icteric Neck: non-tender, supple Respiratory: clear to auscultation, normal air movement Cardiovascular: nl pulses, regular rate and rhythm Gastrointestinal: distended, non-tender, soft Musculoskeletal: nl extremities to inspection, nl gait and stance Extremities: normal pulses Results Result Diagram: 01/14/1733 01/14/17 0533 Medications Medications Current Medications Chlordiazepoxide (Librium) 25 mg TID PO Last administered on 01/15/17 13:02; Admin Dose 25 MG; Start 01/08/17 at 21:00 Lorazepam (Ativan) 1 mg Q6H PRN PO ANXIETY Last administered on 01/12/17 21:45 ; Admin Dose 1 MG; Start 01/08/17 at 19:00 Docusate Sodium (Colace) 100 mg BID PO Last administered on 01/15/17 09:08; Admin Dose 100 MG; Start 01/08/17 at 21:00 Pantoprazole (Protonix Tab) 40 mg DAILY@06 PO Last administered on 01/15/17 05: 47; Admin Dose 40 MG; Start 01/09/17 at 06:00 Enoxaparin Sodium (Lovenox) 40 mg DAILY SC Last administered on 01/15/17 09:27 ; Admin Dose 40 MG; Start 01/12/17 at 16:30 Thiamine HCl (Vitamin B1) 100 mg DAILY PO Last administered on 01/15/17 09:08; Admin Dose 100 MG; Start 01/13/17 at 09:00 Methylprednisolone (Medrol) 32 mg DAILY PO Last administered on 01/15/17 09:09 ; Admin Dose 32 MG; Start 01/12/17 at 19:00; Stop 02/08/17 at 09:01 Lactobacillus Acidophilus/ Rhamnosus (Culturelle) 1 cap BID PO Last administered on 01/15/17 09:08; Admin Dose 1 CAP; Start 01/13/17 at 21:00 Morphine Sulfate (morphine) 3 mg Q4H PRN IV pain Last administered on 01/15/17 13:52; Admin Dose 3 MG; Start 01/14/17 at 21:24 Zolpidem Tartrate (Ambien) 10 mg ONCE PRN PO INSOMNIA Last administered on 23:03; Admin Dose 10 MG; Start 01/14/17 at 21:30; Stop 01/15/17 at 21:29 IFTIKHAR GONZALEZ MD Jan 15, 2017 14:43
--- NOTE | 2017-01-15 14:49 | DS ---
DATE OF ADMISSION: 01/08/2017 DATE OF DISCHARGE: 01/15/2017 PRIMARY CARE PHYSICIAN: Unknown. PRINTER APPRENTICE: Zulema Ospina MD DIAGNOSES ON ADMISSION: 1. Acute alcoholic pancreatitis. 2. Chronic alcoholism. 3. Alcoholic liver. 4. Acute liver injury. 5. Chronic liver disease with sequelae of coagulopathy, ascites, portal hypertension. 6. Probable depression. 7. Tobacco abuse, substance abuse with cocaine, status post counseling. 8. History of gastrointestinal bleed. 9. Leukocytosis, possibly leukemoid reaction. HOSPITAL COURSE: This is an unfortunate 31-year-old gentleman with chronic alcoholism, admitted wit h pancreatitis. The pancreatitis has resolved. He is stable, tolerating diet and fit for discharge . Unfortunately, his hyperbilirubinemia remains along with coagulopathy and minimal ascites. His l iver discriminant function was greater than 42.9. This denotes a high mortality and benefit for reese roid treatment. The patient was started on methylprednisolone 32 mg daily for 28 days and then to t aper over 2 weeks. He will need to visit GI and primary in followup. Once it is determined that hi s liver is of poor function, potentially may need referral to a liver clinic, etc. He was advised b y myself and gastroenterology that it would be detrimental for any other further alcohol use. He se ems to be somewhat responsive to our request to avoid alcohol, but only time will tell. I will ask him to visit AA should he be ready for that decision. DISCHARGE PLAN: Home. FOLLOWUP: Follow up with primary in 1 week, GI in 2 to 3 weeks. DIET: Regular. ACTIVITY: As tolerated. No driving. DURABLE MEDICAL EQUIPMENT: None. CODE STATUS: FULL. CONDITION: Stable. BARRIERS TO DISCHARGE: None. PENDING TESTS: None. FUNCTIONAL STATUS: The patient awake, alert, agrees with the current plan of care. ALLERGIES: SHELLFISH. REASON FOR ADMISSION: Jaundice, pancreatitis. IMAGING STUDIES: MRCP showed hepatosplenomegaly, contracted gallbladder reactive secondary to under lying liver disease. Small amount of ascites. Gallbladder ultrasound showed thickened gallbladder secondary to contracted gallbladder, diffuse fatty infiltration of liver. CAT scan on admission theo d as pancreatitis. No peripancreatic fluid collections. Chronic calcifications along the tail of p ancreas and inferior pararenal space, enlarged liver, splenomegaly. LABORATORY DATA: Blood cultures negative. Tox screen not positive for anything. INR 1.6. White c ell count of 36.6, hemoglobin and hematocrit of 11 and 35, MCV of 99, platelets of 337. Sodium 141, potassium 3.9, chloride 109, bicarbonate 22, BUN of 5, creatinine 0.4, glucose of 96. Bilirubin 7. 6, was as high as 9.8, direct is 6, and indirect is only 1.6. AST and ALT are 40 and 37, alkaline p hosphatase of 315. Protein of 6, albumin of 3. Vitamin D level of 14, which will be replaced. TSH of 1.4. A1c of 5.2. DISCHARGE MEDICATIONS: 1. Colace 100 b.i.d. 2. Protonix or Prilosec daily. 3. Propranolol 10 t.i.d. 4. Thiamine 100 daily. 5. Vitamin D 50,000 units once a week. Dictated By: HERBERT ESPARZA MD AC/NTS Conf#: [id number] DID#: [id number] CC: ZULEMA OSPINA;*[facility]*
== END 2017-01-15 17:00 | disposition home or self-care (01) | DRG 438 ==
LOC: FTE 12:36 → MS2 18:40
PROVIDERS: ADMIT Family Medicine; ATTEND Family Medicine
DX: K85.20 Alcohol induced acute pancreatitis without necrosis or infection (principal); K72.00 Acute and subacute hepatic failure without coma; K76.6 Portal hypertension; F10.288 Alcohol dependence with other alcohol-induced disorder; D68.4 Acquired coagulation factor deficiency; F32.9 Major depressive disorder, single episode, unspecified; D72.823 Leukemoid reaction; K70.31 Alcoholic cirrhosis of liver with ascites; K70.0 Alcoholic fatty liver; Z72.0 Tobacco use
CPT/HCPCS: 36415; 74176; 74181; 76705; 80053; 80307; 81001; 82306; 83036; 83690; 83735; 84100; 84443; 85025; 85610; 85730; 87040; 96374; 96375; J0696; J1170; J1650; J2270; J2405; J3411; J3480; J7030; J7509

== ENCOUNTER 2017-01-16 06:23 | Inpatient (IN) | payer OTHER ==
[~2017-01-16] VITALS: Ht 172.7 cm; Wt 92.0 kg
[~2017-01-16 06:23] MED LIST changes: -CIPR500T4 PO; +DOCU-216 PO; +ERGO500037 PO; -FOLI-49 PO; -HYDR28.336 TP; -METR500T14 PO; -MULTI PO; -ONDA4TAB8 PO; -PANT40TA3 PO; +PANT40TA4 PO; +PROP10TA6 PO; -RANI150T9 PO; -SUCR1TAB56 PO; -TRAM50TA2 PO
[2017-01-16] MEDS ORDERED: SOD CHLORIDE 0.9% 1,000 ML IV STA (07:05)
[2017-01-16] MEDS ORDERED: DOCUSATE SODIUM 100 MG CAP PO STA (07:07)
[2017-01-16 07:32] LABS: ADD SCAN DIFF NO
[2017-01-16 07:35] LABS: ABNORMAL IP MESSAGE 1; HEMATOCRIT 38.2 % (42.0-52.0); MEAN CORPUSCULAR HEMOGLOBIN 34.1 pg (29.0-33.0); MEAN CORPUSCULAR VOLUME 100.3 fl (82.0-101.0); MEAN PLATELET VOLUME 10.9 fl (7.4-10.4); PLATELET COUNT 381 10^3/UL (140-415); RED BLOOD COUNT 3.81 10^6/ul (4.70-6.10); RED CELL DISTRIBUTION WIDTH 18.4 % (11.5-14.5); WHITE BLOOD COUNT 42.6 10^3/ul (4.8-10.8)
[2017-01-16 07:36] LABS: ADD UMIC YES; URINE BILIRUBIN (Dip) 3+ (NEGATIVE); URINE BLOOD (Dip) NEGATIVE (NEGATIVE); URINE COLOR AMBER (YELLOW); URINE GLUCOSE (Dip) NEGATIVE (NEGATIVE); URINE KETONES (Dip) NEGATIVE (NEGATIVE); URINE LEUKOCYTE ESTERASE (Dip) NEGATIVE (NEGATIVE); URINE NITRITE (Dip) NEGATIVE (NEGATIVE); URINE TOTAL PROTEIN (Dip) TRACE (NEGATIVE); URINE UROBILINOGEN (Dip) 1.0 E.U./dL (0.1-1.0)
[2017-01-16 07:51] LABS: ICTOTEST POSITIVE (NEGATIVE)
[2017-01-16 07:52] LABS: BACTERIA,URINE FEW; URINE RBCS 0-2 /HPF (0)
--- NOTE | 2017-01-16 07:56 | ERA ---
ER Documentation Chief Complaint Date/Time DATE: 01/16/17 TIME: 07:55 Chief Complaint abd pain, NV,constipation since yesterday (MARTIR VASQUES PA-C) HPI This is a 31-year-old history of chronic alcoholism, fatty liver, history of GI bleed who was recently admitted on January 08 and discharged yesterday January 15 for alcoholic pancreatitis and jaundice presenting to the emergency department again for constant severe epigastric pain and nausea for past 2 weeks. Patient states when he was discharged, he tried to eat oatmeal however he vomited. He states that he feels bloated, tried have a bowel movement last night however he was straining and noted bright red blood on the napkin, he denies black tarry stools. Patient states that he was prescribed medications however he has not picked them up since he was discharged because he felt so weak. He denies fevers. (MARTIR VASQUES PA-C) ROS All systems reviewed and are negative except as per history of present illness. (MARTIR VASQUES PA-C) Medications Home Meds Active Scripts Ergocalciferol (Vitamin D2) (VITAMIN D2) 50,000 Unit Capsule, 98961 UNIT PO DAILY, #10 CAP 4 Refills Only take once a week; not daily. Prov:HERBERT ESPARZA MD 01/15/17 [Thiamine] 100 MG TAB No Conflict Check, 100 MG PO DAILY for 30 Days, #30 5 Refills Prov:HERBERT ESPARZA MD 01/15/17 Propranolol Hcl* (Propranolol Hcl*) 10 Mg Tablet, 10 MG PO TID for 10 Days, #30 TAB 2 Refills Prov:HERBERT ESPARZA MD 01/15/17 Pantoprazole* (Pantoprazole*) 40 Mg Tablet.dr, 40 MG PO DAILY@06 for 7 Days, #7 Prov:HERBERT ESPARZA MD 01/15/17 Docusate Sodium (Dok) 100 Mg Capsule, 100 MG PO BID for 10 Days, #10 CAP 3 Refills Prov:HERBERT ESPARZA MD 01/15/17 Allergies Allergies: Coded Allergies: shellfish derived (Verified Allergy, Unknown, RASH, ITCHINESS, 01/08/17) PMhx/Soc History of Surgery: No Anesthesia Reaction: No Hx 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 Disorder: No Hx Respiratory Disorders: No Hx Cardiac Disorders: No Hx Psychiatric Problems: No Hx Miscellaneous Medical Probl: Yes (pancreatitis, Jaundice, Liver problem) Hx Alcohol Use: Yes Hx Substance Use: Yes Hx Tobacco Use: Yes Smoking Status: Current some day smoker (MARTIR VASQUES PA-C) Physical Exam Vitals Vital Signs Date Time Temp Pulse Resp B/P Pulse Ox O2 Delivery O2 Flow Rate FiO2 01/16/17 06:33 99.6 124 18 115/61 99 (GIOVANNA ORTEGA) Physical Exam GENERAL: well-developed/well-nourished, in no apparent distress. Patient is speaking clearly HENT: NC/AT, moist mucous membranes EYES: Conjunctiva normal. Icteric NECK: Supple, no lymphadenopathy PULM: CTA bilaterally, no rales, rhonchi, or wheezing heard CV: Normal S1S2, RRR, good capillary refill GI: mild distention, tender to palpation in epigastric quadrant Normal bowel sounds No gross peritonitis, no bruits Negative Rovsing, negative Whipple, negative McBurney's point, Negative CVAT BACK: No masses EXT: No clubbing, cyanosis, or edema NEURO: Alert and Orientated SKIN: Jaundice PSYCH: Normal mood and mentation (MARTIR VASQUES PA-C) Result Diagram: 01/16/17 0720 01/16/17 0720 Results 24 hrs Laboratory Tests Test 01/16/17 07:20 White Blood Count 42.610^3/ul Red Blood Count 3.8110^6/ul Hemoglobin 13.0g/dl Hematocrit 38.2% Mean Corpuscular Volume 100.3fl Mean Corpuscular Hemoglobin 34.1pg Mean Corpuscular Hemoglobin Concent 34.0g/dl Red Cell Distribution Width 18.4% Platelet Count 40357^3/UL Mean Platelet Volume 10.9fl Urine Color CONRADO Urine Clarity CLEAR Urine pH 6.5 Urine Specific Black 1.010 Urine Ketones NEGATIVE Urine Nitrite NEGATIVE Urine Bilirubin 3+ Urine Ictotest POSITIVE Urine Urobilinogen 1.0 E.U./dL Urine Leukocyte Esterase NEGATIVE Urine Microscopic RBC 0-2/HPF Urine Microscopic WBC 2-5/HPF Urine Epithelial Cells FEW Urine Bacteria FEW Urine Hemoglobin NEGATIVE Urine Glucose NEGATIVE% Urine Total Protein TRACE Sodium Level 139mmol/L Potassium Level 3.5mmol/L Chloride Level 104mmol/L Carbon Dioxide Level 23mmol/L Anion Gap 16 Blood Urea Nitrogen 9mg/dl Creatinine 0.59mg/dl Glucose Level 81mg/dl Calcium Level 9.3mg/dl Total Bilirubin 8.0mg/dl Direct Bilirubin 6.20mg/dl Indirect Bilirubin 1.8mg/dl Aspartate Amino Transf (AST/SGOT) 84IU/L Alanine Aminotransferase (ALT/SGPT) 56IU/L Alkaline Phosphatase 410IU/L Total Protein 8.0g/dl Albumin 4.0g/dl Globulin 4.00g/dl Albumin/Globulin Ratio 1.00 Lipase 42U/L Current Medications Medications (Trade) Dose Ordered Sig/Meka Route PRN Reason Start Time Stop Time Status Last Admin Dose Admin Sodium Chloride (NS) 1,000 ml @ 1,000 mls/hr Q1H STAT IV 01/16/17 07:05 01/16/17 08:04 DC 01/16/17 07:31 Docusate Sodium (Colace) 200 mg ONCE STAT PO 01/16/17 07:07 01/16/17 07:08 DC 01/16/17 07:39 Ondansetron HCl (Zofran Inj) 4 mg ONCE STAT IV 01/16/17 08:05 01/16/17 08:07 DC 01/16/17 08:15 Ketorolac Tromethamine (Toradol) 15 mg ONCE STAT IV 01/16/17 08:05 01/16/17 08:10 DC Pantoprazole (Protonix Iv) 40 mg ONCE STAT IV 01/16/17 08:13 01/16/17 08:14 DC 01/16/17 08:22 (GIOVANNA ORTEGA) Procedures/MDM This is a 31-year-old history of chronic alcoholism, fatty liver, history of GI bleed who was recently admitted on January 08 and discharged yesterday January 15 for alcoholic pancreatitis and jaundice presenting to the emergency department again for constant epigastric pain, nausea, weakness associated with alcoholic pancreatitis and liver failure. Patient is appropriate for readmission to med/ surg for pain control and unable to tolerate diet. I have consulted my supervising physician who consulted who accepted admission. IV access was established. CBC showed continuous severe leukocytosis 42.6 which is elevated from yesterday's visit, likely leukemoid reaction. Hgb/Hct 13/ 38.2 Total bilirubin 8 Direct bilirubin 6 Patient was given Zofran, Protonix, 1 L of NS, and Colace in the ED He is stable to be transferred to med/surg for further management. (MARTIR VASQUES PA-C) Decision making: I saw this patient independently along with PA staff. Briefly, patient was recently admitted for rapidly evolving liver failure. After being discharged yesterday he returns today with ongoing symptomatology. His lab work demonstrates evidence of a worsening leukocytosis but with no evidence of obvious infection and he does not appear to be septic with a lactate that is normal. His bilirubin is also elevating. He has been unable to keep anything down. At this point, in consultation with the primary care doctor to take care of him in the hospital, I am concerned about the aggressive worsening of his liver failure patient will be readmitted to the hospital for further evaluation , supportive management and further care as necessary. (GIOVANNA ORTEGA) Departure Diagnosis: Primary Impression: Liver failure Condition: Fair MARTIR VASQUES PA-C Jan 16, 2017 07:56 GIOVANNA ORTEGA Jan 16, 2017 09:02
[2017-01-16] MEDS ORDERED: ONDANSETRON 4 MG INJ IV STA (08:05)
[2017-01-16] MEDS ORDERED: KETOROLAC 15 MG INJ IV STA (08:05)
[2017-01-16 08:08] LABS: BILIRUBIN,DIRECT 6.2 mg/dl (0.00-0.20); BILIRUBIN,INDIRECT 1.8 mg/dl (0-1.1); CALCIUM 9.3 mg/dl (8.4-10.2); CREATININE 0.59 mg/dl (0.61-1.24); POTASSIUM 3.5 mmol/L (3.5-5.1)
[2017-01-16] MEDS ORDERED: PANTOPRAZOLE 40 MG INJ IV STA (08:13)
[2017-01-16 10:23] LABS: EOSINOPHILS # 2.1 10^3/ul (0.0-0.5); LYMPHOCYTES # 2.6 10^3/ul (0.8-2.9); MONOCYTE # 0.4 10^3/ul (0.3-0.9); MYELOCYTES # 0.4; NEUTROPHIL # 26.4 10^3/ul (1.6-7.5)
[2017-01-16] MEDS ORDERED: ACETAMINOPHEN 325 MG TAB PO PRN (10:30)
[2017-01-16] MEDS ORDERED: DOCUSATE SODIUM 100 MG CAP PO PRN (10:30)
[2017-01-16] MEDS ORDERED: NACL 0.9% 3 ML SYG IV SCH (10:30)
[2017-01-16] MEDS ORDERED: BISACODYL 10 MG SUPP PR PRN (10:30)
[2017-01-16] MEDS: HYDROCODONE/APAP (5/325) TAB PO PRN ×2 (10:36→17:46)
[2017-01-16] MEDS ORDERED: DOCUSATE SODIUM 100 MG CAP PO SCH (13:00)
[2017-01-16] MEDS: PROPRANOLOL 10 MG TAB PO SCH ×2 (13:49→22:54)
[2017-01-16] MEDS: THIAMINE 100 MG TAB PO SCH (13:49)
[2017-01-16] MEDS: morphine 2 MG INJ IV PRN ×2 (16:19→20:34)
[2017-01-16 18:11] VITALS: TEMP 98.2
[2017-01-16] MEDS: ONDANSETRON 4 MG INJ IV PRN (20:34)
[2017-01-16 21:22] VITALS: Ht 172.7 cm; Wt 92.0 kg
[2017-01-16 22:30] VITALS: BP 105/55; RESP 20
[2017-01-16] MEDS: SENNA/DOCUSATE NA (8.6MG/50MG) TAB PO SCH (22:59)
[2017-01-17] MEDS: PANTOPRAZOLE (EC) 40 MG TAB PO SCH (05:57)
[2017-01-17] MEDS: morphine 2 MG INJ IV PRN ×3 (06:29→16:14)
[2017-01-17 07:50] VITALS: BP 115/63; RESP 20
[2017-01-17] MEDS: THIAMINE 100 MG TAB PO SCH (08:35)
[2017-01-17] MEDS: PROPRANOLOL 10 MG TAB PO SCH ×3 (08:37→21:12)
[2017-01-17] MEDS: ENOXAPARIN 40 MG/0.4 ML SYG SC SCH (09:01)
[2017-01-17] MEDS: ONDANSETRON 4 MG INJ IV PRN ×2 (09:22→17:44)
[2017-01-17] MEDS: HYDROCODONE/APAP (5/325) TAB PO PRN ×2 (09:22→16:47)
[2017-01-17 09:51] LABS: ADD SCAN DIFF NO
[2017-01-17 09:57] LABS: ABNORMAL IP MESSAGE 1; HEMOGLOBIN 11.2 g/dl (14.0-18.0); MEAN CORPUSCULAR HEMOGLOBIN 33.9 pg (29.0-33.0); MEAN CORPUSCULAR HGB CONC 33.9 g/dl (32.0-37.0); MEAN PLATELET VOLUME 11.1 fl (7.4-10.4); PLATELET COUNT 333 10^3/UL (140-415); RED CELL DISTRIBUTION WIDTH 18.1 % (11.5-14.5); WHITE BLOOD COUNT 36.2 10^3/ul (4.8-10.8)
[2017-01-17 10:22] LABS: ALBUMIN 3.3 g/dl (3.3-4.9); ALBUMIN/GLOBULIN RATIO 0.97; BILIRUBIN,DIRECT 7.4 mg/dl (0.00-0.20); BILIRUBIN,INDIRECT 1.9 mg/dl (0-1.1); BILIRUBIN,TOTAL 9.3 mg/dl (0.2-1.3); CALCIUM 8.4 mg/dl (8.4-10.2); CREATININE 0.64 mg/dl (0.61-1.24); POTASSIUM 3.3 mmol/L (3.5-5.1); TOTAL PROTEIN 6.7 g/dl (6.1-8.1)
--- NOTE | 2017-01-17 11:22 | RADRPT ---
PROCEDURE: XR Abdomen. CLINICAL INDICATION: Abdominal pain TECHNIQUE: AP abdomen x-ray. COMPARISON: None. FINDINGS: The bowel gas pattern is normal. There is no evidence of obstruction. There are no abnormal calcific ations overlying the urinary tracts. The osseous structures are unremarkable. There is enlarged emory er noted. IMPRESSION: Hepatomegaly. No evidence of bowel dilatation or obstruction. RPTAT: QQ .Kendrick Deng MD, MD Date Time Electronically viewed and signed by .Kendrick Deng MD, MD on 01/17/2017 11:22 .L/
[2017-01-17 11:52] LABS: EOSINOPHILS # 2.5 10^3/ul (0.0-0.5); LYMPHOCYTES # 2.2 10^3/ul (0.8-2.9); MONOCYTE # 0.4 10^3/ul (0.3-0.9); NEUTROPHIL # 26.4 10^3/ul (1.6-7.5)
[2017-01-17] MEDS: POTASSIUM CHLORIDE 20 MEQ POWDER FOR ORAL SOLN PO SCH (12:59)
[2017-01-17] MEDS: BISACODYL (EC) 5 MG TAB PO PRN (12:59)
[2017-01-17 19:57] VITALS: BP 106/60; RESP 20
--- NOTE | 2017-01-17 20:30 | PN ---
Date/Time of Note Date/Time of Note DATE: 01/17/17 TIME: 20:27 Assessment/Plan VTE Prophylaxis VTE Prophylaxis Intervention: LMWH Lines/Catheters IV Catheter Type (from Nrs): Saline Lock Assessment/Plan Chief Complaint/Hosp Course Subjective: Mod pain remains. Positive nausea but no vomiting. Positive flatus but no fever. Objective: Vital signs stable PE No pallor adenopathy. Positive icterus Regular Clear Bs +, min tenderness, mild distended, no R/r/G. No flank ecchymosis No edema Assessment and plan 1. Abdominal pain, check for ascites 2. Chronic liver disease 3. Chronic alcoholism Problems: Exam/Review of Systems Vital Signs Vitals Vital Signs Date Time Temp Pulse Resp B/P Pulse Ox O2 Delivery O2 Flow Rate FiO2 01/17/17 19:57 98.6 92 20 106/60 95 01/16/17 18:11 Room Air Intake and Output 01/16/17 01/16/17 01/17/17 15:00 23:00 07:00 Intake Total 700 ml Output Total 2 ml Balance 698 ml Results Result Diagram: 01/17/1792401/17/17 0925 Results 24 hrs Laboratory Tests Test 01/17/17 09:25 White Blood Count 36.2 H Red Blood Count 3.30 L Hemoglobin 11.2 L Hematocrit 33.0 L Mean Corpuscular Volume 100.0 Mean Corpuscular Hemoglobin 33.9 H Mean Corpuscular Hemoglobin Concent 33.9 Red Cell Distribution Width 18.1 H Platelet Count 333 Mean Platelet Volume 11.1 H Neutrophils % 73.0 Band Neutrophils % 13.0 H Lymphocytes % 6.0 L Monocytes % 1.0 Eosinophils % 7.0 Neutrophils # 26.4 H Lymphocytes # 2.2 Monocytes # 0.4 Eosinophils # 2.5 H Sodium Level 135 Potassium Level 3.3 L Chloride Level 104 Carbon Dioxide Level 22 Anion Gap 12 Blood Urea Nitrogen 9 Creatinine 0.64 Glucose Level 100 Calcium Level 8.4 Total Bilirubin 9.3 H Direct Bilirubin 7.40 H Indirect Bilirubin 1.9 H Aspartate Amino Transf (AST/SGOT) 70 H Alanine Aminotransferase (ALT/SGPT) 50 Alkaline Phosphatase 326 H Total Protein 6.7 # Albumin 3.3 Globulin 3.40 H Albumin/Globulin Ratio 0.97 Lipase 48 Medications Medications Current Medications Ondansetron HCl (Zofran Inj) 4 mg Q6H PRN IV NAUSEA AND/OR VOMITING Last administered on 01/17/17 17:44; Admin Dose 4 MG; Start 01/16/17 at 10:30 Acetaminophen (Tylenol Tab) 650 mg Q6H PRN PO PAIN LEVEL 1-3 OR FEVER; Start at 10:30 Acetaminophen/ Hydrocodone Bitart ([place] (5/325)) 1 tab Q6H PRN PO MODERATE PAIN LEVEL 4-6 Last administered on 01/17/17 16:47; Admin Dose 1 TAB; Start 01/16/17 at 10:30 Docusate Sodium (Colace) 100 mg Q12H PRN PO CONSTIPATION; Start 01/16/17 at 10: 30 Bisacodyl (Dulcolax) 5 mg DAILY PRN PO CONSTIPATION Last administered on 12:59; Admin Dose 5 MG; Start 01/16/17 at 10:30 Bisacodyl (Dulcolax Supp) 10 mg DAILY PRN [place] CONSTIPATION; Start 01/16/17 at 10: 30 Enoxaparin Sodium (Lovenox) 40 mg DAILY SC Last administered on 01/17/17 09:01 ; Admin Dose 40 MG; Start 01/17/17 at 09:00 Ergocalciferol (Drisdol) 50,000 unit Q7D@09 PO ; Start 01/22/17 at 09:00 Pantoprazole (Protonix Tab) 40 mg DAILY@06 PO Last administered on 01/17/17 05 :57; Admin Dose 40 MG; Start 01/17/17 at 06:00 Propranolol HCl (Inderal) 10 mg TID PO Last administered on 01/17/17 12:07; Admin Dose 10 MG; Start 01/16/17 at 13:00 Thiamine HCl (Vitamin B1) 100 mg DAILY PO Last administered on 01/17/17 08:35 ; Admin Dose 100 MG; Start 01/16/17 at 13:00 Senna/Docusate Sodium (Senokot-S) 2 tab HS PO Last administered on 01/16/17 22: 59; Admin Dose 2 TAB; Start 01/16/17 at 21:00 Morphine Sulfate (morphine) 2 mg Q4 PRN IV PAIN LEVEL 6-10 Last administered on 01/17/17 16:14; Admin Dose 2 MG; Start 01/16/17 at 15:30 Potassium Chloride (Potassium Chloride Pwd/Soln) 40 meq DAILY PO Last administered on 01/17/17t 12:59; Admin Dose 40 MEQ; Start 01/17/17 at 12:30 HERBERT ESPARZA MD Jan 17, 2017 20:30
[2017-01-17] MEDS: LACTOBACILLUS RHAMNOSUS CAP PO SCH (21:00)
[2017-01-17] MEDS: HYDROmorphONE 2 MG TAB PO PRN (21:11)
[2017-01-17] MEDS: SENNA/DOCUSATE NA (8.6MG/50MG) TAB PO SCH (21:11)
[2017-01-18] MEDS: HYDROmorphONE 2 MG TAB PO PRN ×2 (01:05→08:26)
[2017-01-18] MEDS ORDERED: VITAMIN A & D 5 GM OINT PACKET TOP ONE (01:11)
[2017-01-18] MEDS: morphine 2 MG INJ IV PRN (02:51)
[2017-01-18] MEDS: PANTOPRAZOLE (EC) 40 MG TAB PO SCH (05:25)
[2017-01-18 06:13] LABS: ADD SCAN DIFF NO
[2017-01-18 06:17] LABS: ABNORMAL IP MESSAGE 1; HEMATOCRIT 33.3 % (42.0-52.0); HEMOGLOBIN 11.1 g/dl (14.0-18.0); MEAN CORPUSCULAR HEMOGLOBIN 33.7 pg (29.0-33.0); MEAN CORPUSCULAR HGB CONC 33.3 g/dl (32.0-37.0); MEAN CORPUSCULAR VOLUME 101.2 fl (82.0-101.0); MEAN PLATELET VOLUME 11.2 fl (7.4-10.4); PLATELET COUNT 304 10^3/UL (140-415); RED BLOOD COUNT 3.29 10^6/ul (4.70-6.10); WHITE BLOOD COUNT 36.1 10^3/ul (4.8-10.8)
[2017-01-18 06:39] LABS: INR 1.53; PROTIME 18.5 Sec (12.2-14.2); PT RATIO 1.4
[2017-01-18 07:00] VITALS: BP 115/57; PULSE 68; RESP 18
[2017-01-18 07:02] LABS: ALBUMIN 3.5 g/dl (3.3-4.9); ALBUMIN/GLOBULIN RATIO 0.97; BILIRUBIN,DIRECT 8.8 mg/dl (0.00-0.20); BILIRUBIN,INDIRECT 2.1 mg/dl (0-1.1); BILIRUBIN,TOTAL 10.9 mg/dl (0.2-1.3); CALCIUM 8.4 mg/dl (8.4-10.2); CREATININE 0.62 mg/dl (0.61-1.24); PHOSPHORUS 3.7 mg/dl (2.5-4.9); POTASSIUM 3.6 mmol/L (3.5-5.1); TOTAL PROTEIN 7.1 g/dl (6.1-8.1)
[2017-01-18] MEDS: LACTOBACILLUS RHAMNOSUS CAP PO SCH (08:26)
[2017-01-18] MEDS: POTASSIUM CHLORIDE 20 MEQ POWDER FOR ORAL SOLN PO SCH (08:28)
[2017-01-18] MEDS: PROPRANOLOL 10 MG TAB PO SCH ×2 (08:28→12:25)
[2017-01-18] MEDS: THIAMINE 100 MG TAB PO SCH (08:29)
[2017-01-18] MEDS: ENOXAPARIN 40 MG/0.4 ML SYG SC SCH (09:04)
--- NOTE | 2017-01-18 09:51 | RADRPT ---
PROCEDURE: US Abdomen limited . CLINICAL INDICATION: Ascites TECHNIQUE: Multiple real-time images were acquired of the patient's abdomen utilizing a high resol ution transducer. COMPARISON: None FINDINGS: There is no evidence of ascites. RPTAT: AA IMPRESSION: No evidence of ascites. .Sushant Falcon MD, MD Date Time Electronically viewed and signed by .Sushant Falcon MD, MD on 01/18/2017 09:51 .S/
[2017-01-18] MEDS: BISACODYL (EC) 5 MG TAB PO PRN (10:01)
[2017-01-18 10:20] LABS: EOSINOPHILS # 3.2 10^3/ul (0.0-0.5); LYMPHOCYTES # 4.7 10^3/ul (0.8-2.9); MONOCYTE # 2.2 10^3/ul (0.3-0.9); NEUTROPHIL # 19.1 10^3/ul (1.6-7.5)
--- NOTE | 2017-01-18 13:12 | PDOCDIS ---
Discharge Instructions DIAGNOSIS Discharge Diagnosis: cirrhosis CONDITION Patient Condition: Stable HOME CARE INSTRUCTIONS: Special Diet: regular ACTIVITY: Activity Restrictions: Slowly Increase Activity Do not Drive FOLLOW UP/APPOINTMENTS Appointments appt primary -1wk Dr [place] [id number] HERBERT ESPARZA MD Jan 18, 2017 13:12
[2017-01-18] MEDS ORDERED: SENN-88 PO (13:13)
[2017-01-18] MEDS ORDERED: POLY17PO6 PO (13:13)
[2017-01-18] MEDS ORDERED: HYDROCORTISONE 25 MG SUPP PR PRN (13:30)
[2017-01-18] MEDS ORDERED: FOLIC ACID 1 MG TAB PO SCH (13:30)
[2017-01-18] MEDS ORDERED: POLYETHYLENE GLYCOL 17 GM PACKET PO SCH (13:30)
[2017-01-18] MEDS ORDERED: METHYLPREDNISOLONE 4 MG TAB PO SCH (13:30)
[2017-01-18] MEDS ORDERED: FOLI-49 PO (13:38)
[2017-01-18] MEDS ORDERED: ANUHCSUP PR (13:38)
[2017-01-18] MEDS ORDERED: HYDROmorphONE 2 MG TAB PO PRN (14:50)
--- NOTE | 2017-01-18 18:04 | CONS ---
Date/Time of Note Date/Time of Note DATE: 01/18/17 TIME: 17:52 Assessment/Plan Assessment/Plan Problems: (1) Liver failure Status: Acute Qualifiers: Qualified Code: K72.00 - Subacute liver failure without hepatic coma Additional Assessment/Plan Generalized abdominal pain secondary to Chronic alcohol use Possible chronic pain Suggest Patient high risk for substance abuse as an outpatient with taking any opioids and alcohol consumption. I have had an extensive conversation with him and told him he needs to follow-up with the primary care physician if he wants to have opioids written. Also strongly recommend against any nonsteroidal anti- inflammatory medication. I had an extensive conversation with him concerning the risks associated with any further alcohol consumption and recommended him to be assessed by rehab program and especially follow-up with a primary care physician. Consultation Date/Type/Reason Admit Date/Time Jan 16, 2017 at 09:00 Type of Consultation: Pain Management Hx of Present Illness 31-year-old gentleman who is well known to me from prior hospitalization with a history of alcohol-related pancreatitis and hepatitis. Patient states that this time he began to drink approximately 1 week prior to presentation started developing increased abdominal discomfort and total body jaundice. States it was associated with nausea vomiting without fevers chills cough shortness of breath frequency burning when he urinates flank discomfort hematemesis bright red blood per rectum or melena. Describes his pain as generalized abdominal discomfort annoying type of pain which is primarily subxiphoid with radiations down to his umbilicus denies pain in either upper bilateral quadrants or lower bilateral quadrant pain does not radiate into his back. Describes the pain is 10/10 it is he states alleviated only with Dilaudid. When he takes his current pain control medication he states his pain is much alleviated pain as does interfere with his physical function severe family relationships also social relationships yes mood depressed sleeping patterns are involved in overall functioning is poor secondary to alcohol consumption and increased abdominal discomfort. Patient has a long-standing history of substance abuse to the best my knowledge she has not been involved in any rehab programs in the past no history of suicidal ideations or family history of substance abuse disorder is requesting pain control medications to go home but he has no outside primary care physician to follow-up. Any request specific pain medications Dilaudid it is unknown whether or not he uses pain medication response to situational stress but he insists on certain pain medications and names them specifically. No history of on with vehicle accidents or arrests overall severity of his pain as he describes a severe peer Constitutional: poor po Eyes: no complaints ENT: no complaints Respiratory: no complaints Cardiovascular: no complaints Gastrointestinal: constipation, decreased appetite, diarrhea, flatus, nausea, no complaints, other, pain, passing stool, vomiting Genitourinary: no complaints Musculoskeletal: no complaints Skin: bruising, erythema, laceration, other, pruritis, rash, skin lesions Neurologic: no complaints Past Surgical History Past Surgical Hx: no surgical history, other Family History Significant Family History: no pertinent family hx Social History Alcohol Use: heavy Smoking Status: Current every day smoker Drug Use: other Exam/Review of Systems Vital Signs Vitals Vital Signs Date Time Temp Pulse Resp B/P Pulse Ox O2 Delivery O2 Flow Rate FiO2 01/18/17 07:00 98.1 68 18 115/57 Room Air 01/17/17 19:57 95 Intake and Output 01/17/17 01/17/17 01/18/17 14:59 22:59 06:59 Intake Total 1460 ml 500 ml Balance 1460 ml 500 ml Exam Constitutional: obese Head: other Eyes: icteric ENMT: nl external ears & nose, nl lips & teeth, nl nasal mucosa & septum Neck: non-tender, supple Respiratory: clear to auscultation, normal air movement Cardiovascular: nl pulses, regular rate and rhythm Gastrointestinal: nl liver, spleen, non-tender, soft Musculoskeletal: nl extremities to inspection, nl gait and stance Extremities: normal pulses 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: 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 intact, nl mental status, nl speech, nl strength Skin: other Results Result Diagram: 01/18/1719 01/18/17 0519 Results 24 hrs Laboratory Tests Test 01/18/17 05:19 White Blood Count 36.1 H Red Blood Count 3.29 L Hemoglobin 11.1 L Hematocrit 33.3 L Mean Corpuscular Volume 101.2 H Mean Corpuscular Hemoglobin 33.7 H Mean Corpuscular Hemoglobin Concent 33.3 Red Cell Distribution Width 18.0 H Platelet Count 304 Mean Platelet Volume 11.2 H Neutrophils % 53.0 Band Neutrophils % 19.0 H Lymphocytes % 13.0 L Monocytes % 6.0 Eosinophils % 9.0 H Neutrophils # 19.1 H Lymphocytes # 4.7 H Monocytes # 2.2 H Eosinophils # 3.2 H Prothrombin Time 18.5 H Prothrombin Time Ratio 1.4 INR International Normalized Ratio 1.53 Sodium Level 135 Potassium Level 3.6 Chloride Level 103 Carbon Dioxide Level 20 L Anion Gap 16 Blood Urea Nitrogen 9 Creatinine 0.62 Glucose Level 86 Calcium Level 8.4 Phosphorus Level 3.7 Magnesium Level 2.0 Total Bilirubin 10.9 H Direct Bilirubin 8.80 H Indirect Bilirubin 2.1 H Aspartate Amino Transf (AST/SGOT) 55 H Alanine Aminotransferase (ALT/SGPT) 43 Alkaline Phosphatase 352 H Total Protein 7.1 Albumin 3.5 Globulin 3.60 H Albumin/Globulin Ratio 0.97 Medications Medications Current Medications Ondansetron HCl (Zofran Inj) 4 mg Q6H PRN IV NAUSEA AND/OR VOMITING Last administered on 01/17/17 17:44; Admin Dose 4 MG; Start 01/16/17 at 10:30 Acetaminophen (Tylenol Tab) 650 mg Q6H PRN PO PAIN LEVEL 1-3 OR FEVER; Start at 10:30 Docusate Sodium (Colace) 100 mg Q12H PRN PO CONSTIPATION; Start 01/16/17 at 10: 30 Bisacodyl (Dulcolax) 5 mg DAILY PRN PO CONSTIPATION Last administered on 10:01; Admin Dose 5 MG; Start 01/16/17 at 10:30 Bisacodyl (Dulcolax Supp) 10 mg DAILY PRN [place] CONSTIPATION; Start 01/16/17 at 10: 30 Enoxaparin Sodium (Lovenox) 40 mg DAILY SC Last administered on 01/18/17 09:04 ; Admin Dose 40 MG; Start 01/17/17 at 09:00 Ergocalciferol (Drisdol) 50,000 unit Q7D@09 PO ; Start 01/22/17 at 09:00 Pantoprazole (Protonix Tab) 40 mg DAILY@06 PO Last administered on 01/18/17 05 :25; Admin Dose 40 MG; Start 01/17/17 at 06:00 Propranolol HCl (Inderal) 10 mg TID PO Last administered on 01/18/17 12:25; Admin Dose 10 MG; Start 01/16/17 at 13:00 Thiamine HCl (Vitamin B1) 100 mg DAILY PO Last administered on 01/18/17 08:29 ; Admin Dose 100 MG; Start 01/16/17 at 13:00 Senna/Docusate Sodium (Senokot-S) 2 tab HS PO Last administered on 01/17/17 21 :11; Admin Dose 2 TAB; Start 01/16/17 at 21:00 Morphine Sulfate (morphine) 2 mg Q4 PRN IV PAIN LEVEL 6-10 Last administered on 01/18/17 02:51; Admin Dose 2 MG; Start 01/16/17 at 15:30 Potassium Chloride (Potassium Chloride Pwd/Soln) 40 meq DAILY PO Last administered on 01/18/17 08:28; Admin Dose 40 MEQ; Start 01/17/17 at 12:30 Lactobacillus Acidophilus/ Rhamnosus (Culturelle) 1 cap BID PO Last administered on 01/18/17 08:26; Admin Dose 1 CAP; Start 01/17/17 at 21:00 Hydromorphone HCl (Dilaudid) 2 mg Q6H PRN PO MODERATE PAIN LEVEL 4-6 Last administered on 01/18/17 14:58; Admin Dose 2 MG; Start 01/18/17 at 14:50 Polyethylene Glycol (Miralax) 17 gm BID PO Last administered on 01/18/17 14:58 ; Admin Dose 17 GM; Start 01/18/17 at 13:30 Methylprednisolone (Medrol) 32 mg DAILY PO Last administered on 01/18/17 14:59 ; Admin Dose 32 MG; Start 01/18/17 at 13:30 Folic Acid (Folic Acid) 2 mg DAILY PO Last administered on 01/18/17 14:58; Admin Dose 2 MG; Start 01/18/17 at 13:30 Hydrocortisone (Anusol-Hc Supp) 25 mg TID PRN DE HEMORROID PAIN/ITCHING; Start 01/18/17 at 13:30 EDMOND CHEEK Jan 18, 2017 18:03
--- NOTE | 2017-01-18 19:05 | DS ---
DATE OF ADMISSION: 01/16/2017 DATE OF DISCHARGE: 01/18/2017 PRIMARY CARE PHYSICIAN: None. SILK OPENER: Pain management, Dr. Cheek DIAGNOSIS ON ADMISSION: Abdominal pain. DIAGNOSES ON DISCHARGE: 1. Chronic pancreatitis. 2. Chronic anemia of chronic disease. 3. Past alcoholism. 4. Acute liver injury. 5. Past substance abuse. 6. Probable depression. 7. History of gastrointestinal bleed. 8. Chronic liver disease sequelae. 9. Constipation. 10. Internal hemorrhoids. HOSPITAL COURSE: This is an unfortunate 31-year-old gentleman with liver failure, admitted with abd ominal pain. He has no ascites, no bowel obstruction. His pain is probably due to 3 issues. Chron ic pancreatitis, calcifications noted. Potentially gastritis. Constipation, along with probable in ternal hemorrhoids and varices. He additionally has dysuria, probably due to hyperbilirubinemia. U nfortunately, he is having a lot of symptoms of liver disease and only time may help his healing. Nelda medrano was counseled to avoid alcohol and discharged. The patient will be seen by pain management later today if patient remains here, otherwise may follo w up with them as an outpatient. In terms of liver disease, I spoke with the brother regarding the issue and the prognosis. The live r obviously has a potential to heal, but the likelihood is going to be challenging. At this time, I would avoid long-term narcotics as they may become addicting and further contribute to his constipa tion. In terms of his constipation, I have added Senna and MiraLax. He will continue hydration and Ensure or Boost as recommended. DISCHARGE PLAN: Home. Follow up with primary in 1 week, GI in 2 to 3 weeks, pain management in 2 t o 3 weeks. DIET: Regular, Boost as directed. ACTIVITY: As tolerated. No driving. DURABLE MEDICAL EQUIPMENT: None. CODE STATUS: FULL. CONDITION: Stable. BARRIERS TO DISCHARGE: None. PENDING TESTS: None. FUNCTIONAL STATUS: Patient awake, alert, aware of care plan and options. ALLERGIES: SHELLFISH. REASON FOR ADMISSION: Abdominal pain. STOPPED MEDICATIONS: Colace. CONTINUED MEDICATIONS: 1. Protonix or Prilosec daily. 2. Propranolol 10 t.i.d. 3. Thiamine 100 daily. 4. Vitamin D 50,000 units once a week. 5. Methylprednisone 32 mg daily. ALTERED MEDICATIONS: None. NEW MEDICATIONS: 1. Senna-S 2 tablets daily. 2. MiraLax 1 packet b.i.d. IMAGING STUDIES: Ultrasound of abdomen does not show any ascites. KUB does not show any obstructio n or stones. LABORATORY DATA: White cell count of 36, H and H of 11 and 33, MCV 101, platelets of 301. INR 1.5. Urine Ictotest positive, 3+ bilirubin, otherwise unremarkable. Sodium 135, potassium 3.6, chlorid e 103, bicarbonate 20, BUN of 9, creatinine 0.6, glucose of 80, calcium of 8, magnesium of 2, phosph orus of 3. AST and ALT of 55 and 43, alkaline phosphatase of 352, bilirubin 10.9, the direct being 8.8 and the indirect obviously 2.1. Protein is 7.1, albumin 3.5. Dictated By: HERBERT ESPARZA MD AC/NTS Conf#: [id number] DID#: [id number] CC: IFTIKHAR CHEEK MD;*End*
[2017-01-22] MEDS ORDERED: ERGOCALCIFEROL 50,000 UNIT CAP PO SCH (09:00)
== END 2017-01-18 18:10 | disposition home or self-care (01) | DRG 433 ==
LOC: FTE 06:23 → MS2 09:00
PROVIDERS: ADMIT Internal Medicine; ATTEND Internal Medicine
DX: K70.40 Alcoholic hepatic failure without coma (principal); K86.0 Alcohol-induced chronic pancreatitis; K70.30 Alcoholic cirrhosis of liver without ascites; F10.20 Alcohol dependence, uncomplicated; K70.0 Alcoholic fatty liver; F19.90 Other psychoactive substance use, unspecified, uncomplicated; F14.10 Cocaine abuse, uncomplicated; F17.210 Nicotine dependence, cigarettes, uncomplicated; K21.9 Gastro-esophageal reflux disease without esophagitis
CPT/HCPCS: 36415; 74000; 76705; 80053; 81001; 83690; 83735; 84100; 85025; 85610; 87081; 96361; 96374; 96375; 96376; C9113; J1170; J1650; J2270; J2405; J7030; J7509

== ENCOUNTER 2017-01-19 04:56 | Inpatient (IN) | payer OTHER ==
[2017-01-19] VITALS (10 sets, daily range): BP systolic 100–112; BP diastolic 58–68; PULSE 87–97; RESP 16–18; Ht 172.7 cm; Wt 96.9 kg
[~2017-01-19] VITALS: Ht 172.7 cm; Wt 96.9 kg
[~2017-01-19 04:56] MED LIST changes: +ANUHCSUP PR; -DOCU-216 PO; +FOLI-49 PO; +POLY17PO6 PO; +SENN-88 PO
[2017-01-19] MEDS ORDERED: NACL 0.9% 3 ML SYG IV SCH (09:00)
[2017-01-19] MEDS ORDERED: LORAZEPAM 2 MG INJ IV PRN (09:00)
[2017-01-19 09:38] LABS: ADD SCAN DIFF NO
[2017-01-19 09:39] LABS: ABNORMAL IP MESSAGE 1; HEMATOCRIT 33.4 % (42.0-52.0); HEMOGLOBIN 11.4 g/dl (14.0-18.0); MEAN CORPUSCULAR HEMOGLOBIN 33.9 pg (29.0-33.0); MEAN CORPUSCULAR HGB CONC 34.1 g/dl (32.0-37.0); MEAN CORPUSCULAR VOLUME 99.4 fl (82.0-101.0); MEAN PLATELET VOLUME 10.9 fl (7.4-10.4); PLATELET COUNT 320 10^3/UL (140-415); RED BLOOD COUNT 3.36 10^6/ul (4.70-6.10); RED CELL DISTRIBUTION WIDTH 17.7 % (11.5-14.5); WHITE BLOOD COUNT 52.3 10^3/ul (4.8-10.8)
[2017-01-19 10:07] LABS: LACTIC ACID 1.7 mmol/L (0.5-2.2)
[2017-01-19 10:09] LABS: ALBUMIN 3.1 g/dl (3.3-4.9); ALBUMIN/GLOBULIN RATIO 0.88; BILIRUBIN,DIRECT 9.3 mg/dl (0.00-0.20); BILIRUBIN,INDIRECT 1.9 mg/dl (0-1.1); BILIRUBIN,TOTAL 11.2 mg/dl (0.2-1.3); CALCIUM 8.6 mg/dl (8.4-10.2); CREATININE 0.5 mg/dl (0.61-1.24); MAGNESIUM 2.3 mg/dl (1.7-2.5); PHOSPHORUS 3.8 mg/dl (2.5-4.9); POTASSIUM 4.1 mmol/L (3.5-5.1); TOTAL PROTEIN 6.6 g/dl (6.1-8.1)
[2017-01-19 10:41] LABS: INR 1.8; PT RATIO 1.6
[2017-01-19 10:42] LABS: PARTIAL THROMBOPLASTIN TIME 42.1 Sec (25.0-35.0)
[2017-01-19 10:46] LABS: BASOPHIL # 0.5 10^3/ul (0.0-0.1); EOSINOPHILS # 0.5 10^3/ul (0.0-0.5); LYMPHOCYTES # 2.6 10^3/ul (0.8-2.9); MONOCYTE # 2.1 10^3/ul (0.3-0.9); MYELOCYTES # 0.5; NEUTROPHIL # 38.2 10^3/ul (1.6-7.5)
[2017-01-19 11:00] LABS: IRON 41 ug/dl (35-150)
[2017-01-19 11:08] LABS: AMYLASE < 30 U/L (11-123)
[2017-01-19 11:09] LABS: TOTAL IRON BINDING CAPACITY 165 ug/dl (241-421)
[2017-01-19] MEDS: SOD CHLORIDE 0.9% 1,000 ML IV SCH ×2 (11:09→18:53)
[2017-01-19] MEDS: PIPER-TAZO 3.375 GM IV (PMX) 100 ML IVPB SCH ×2 (11:10→17:31)
[2017-01-19] MEDS: morphine 2 MG INJ IV PRN ×3 (11:13→21:28)
[2017-01-19] MEDS ORDERED: HYDROCORTISONE 25 MG SUPP PR PRN (11:30)
[2017-01-19] MEDS ORDERED: BARIUM SULF 2% 450 ML BTL (BERRY SMOOTHIE) PO SCH (12:00)
--- NOTE | 2017-01-19 12:43 | RADRPT ---
PROCEDURE: CT abdomen and pelvis without contrast. CLINICAL INDICATION: Abdominal Pain TECHNIQUE: CT scan of the abdomen and pelvis without contrast was performed and is reconstructed a t 2.5 mm contiguous axial intervals from the dome of the diaphragm to the inferior pubic rami.. The patient was scanned without intravenous contrast. Sagittal and coronal reformatted images were obt ained from the axial source images. The calculated radiation dose measures 1134 mGy centimeters. The CTDI measures 19 mGy. COMPARISON: CT abdomen pelvis January 08, 2017 per FINDINGS: Noted is ill-defined infiltrate on the posterior aspect of the anterior segment of the right upper l obe which is only partially included on the study. This area was not included on the recent prior e xam. There is minimal atelectasis in the right costophrenic recess. No effusion or pneumothorax is present. Liver is enlarged measuring 24 cm in length. Noted is fatty infiltration. No mass or ductal dilata tion is visualized. No gallstones are seen. The gallbladder is decompressed. The spleen is enlarge d measuring 16 cm in length. No focal splenic mass is visualized. No adrenal or pancreatic abnorma lity is present. Kidneys are of normal size and contour. No hydronephrosis, calculus or masses seen. Ureters are o f normal course and caliber with no stone. No bladder mass or stone is present. There is no aneurysm. No adenopathy is present. There are multiple visible but nonpathologically enlarged mesenteric nodes. No bowel mass or obstruction is present. The appendix is normal. No pneumoperitoneum is visualiz ed. There is a small to moderate volume of ascites. The osseous structures are intact. IMPRESSION: No evidence of urolithiasis, obstructive uropathy, diverticulitis or appendicitis. Hepatosplenomegaly.. Visible but nonpathologically enlarged mesenteric nodes. Small to moderate ascites. Ill-defined consolidation anterior segment right upper lobe only partially included on the study. .Bulmaro Rainey MD, MD Date Time Electronically viewed and signed by .Bulmaro Rainey MD, MD on 01/19/2017 12:43 .A/
--- NOTE | 2017-01-19 13:11 | HP ---
DATE OF ADMISSION: 01/19/2017 TIME OF EVALUATION: 9:00 a.m. REASON FOR ADMISSION: Transferred from outside facility because of abdominal pain and significant leukocytosis. CONSULTATIONS: 1. Dr. Zulema Ospina, Gastroenterology. 2. Dr. Ash Caraballo, Infectious Disease. HISTORY OF PRESENT ILLNESS: This is a 31-year-old male with a past medical history of alcohol abuse with resultant alcoholic liver disease, alcohol related pancreatitis, liver cirrhosis, and chronic leukocytosis who was actually discharged home from [facility] on 01/18/2017 following his admission for chronic pancreatitis and abdominal pain. The patient verbalized that he was not taking any medications at home. The patient was scheduled to be on high dose steroids as per the recommendations of gastroenterology for a long time because of acute alcoholic hepatitis. Nevertheless, the patient was not taking his steroids at home. The patient verbalized a syncopal episode at home when he fell on his bilateral knees. The patient denied any history of head trauma. The patient denied any chest pain. The patient went to [facility] where he was evaluated initially. The patient was noticed to have a WBC of 49.7. The patient also had evidence of anion gap acidosis. The patient also had evidence of lactic acidosis and bandemia. The patient was noticed to have significant hyperbilirubinemia. The patient was treated with IV ceftriaxone and IV Flagyl in the emergency room along with analgesics. The patient was transferred to [facility] for further management because of insurance reasons. The patient denied any fevers. The patient was complaining of headache and dizziness. The patient denied any melena. The patient was complaining of some hematochezia and he referred that to his hemorrhoids. The patient denied any diarrhea. He also complained about a few episodes of nonbloody, nonbilious vomiting. PAST MEDICAL HISTORY: Alcohol-related liver cirrhosis, fatty liver, chronic leukocytosis, pancreatitis, alcohol abuse. PAST SURGICAL HISTORY: Denies. HOME MEDICATIONS: 1. Protonix 40 mg p.o. daily. 2. Propranolol 10 mg p.o. t.i.d. 3. Thiamine 100 mg p.o. daily. 4. Vitamin D 50,000 units once a week. 5. Methylprednisone 32 mg p.o. daily. ALLERGIES: SHELLFISH. SOCIAL HISTORY: The patient lives at home. Used to be a heavy alcohol abuser. Denies any alcohol use in the recent past. Continues to smoke half a pack of cigarettes per day. Denied any recent use of illicit drug use. REVIEW OF SYSTEMS: A 12-point review of systems, the remainder of the review of systems were negative other than what is mentioned in history of present illness. PHYSICAL EXAMINATION: VITAL SIGNS: Temperature 97.5, pulse rate 90, respiratory rate 18, blood pressure 108/62, oxygen saturation 96% on room air. GENERAL: This is an obese male lying in bed in no apparent distress. HEENT: Head normocephalic and atraumatic. Eyes: Icteric sclerae. Conjunctivae clear. ENT: Nasal septum midline. Oral mucosa is dry. NECK: Supple. No JVD noticed. RESPIRATORY: Bilateral diminished breath sounds. No adventitious breath sounds heard. No use of accessory muscles of respiration. CARDIAC: Regular rate and S2. ABDOMEN: Diffuse tenderness specifically in the right upper quadrant, epigastric and left upper quadrant. No rebound tenderness or guarding. GENITOURINARY: Deferred. EXTREMITIES: No cyanosis, no clubbing. Bilateral lower extremity 1+ pitting edema. Peripheral pulses palpable. NEUROLOGIC: The patient is awake, alert and oriented. Cranial nerves are grossly intact. SKIN: Generalized icterus. LABORATORY AND DIAGNOSTIC DATA: WBC 15.3, hemoglobin 11.4, hematocrit 33.4, platelet count 320, bands 15%. Sodium 135 , potassium 4.1, calcium 8.6, phosphorus 3.8. magnesium 2.3, total bilirubin 11.0, direct bilirubin 9.3, direct bilirubin 1.9, AST 35, ALT 41, alkaline phosphatase 337, ammonia 38, total protein 6.6, albumin 3.1. PT 21.0, INR 1.83, PTT 42.1. IMPRESSION: This is a 31-year-old male with a past medical history of chronic pancreatitis, alcoholic liver cirrhosis and recurrent leukocytosis who was admitted here for further treatment and evaluation of significant abdominal pain and significant leukocytosis. ASSESSMENT AND PLAN: 1. Abdominal pain. Etiology could be from underlying alcoholic hepatitis. The patient's lab work from [facility] did not show any evidence of pancreatitis. A CT scan of the abdomen will be obtained. The patient will be treated empirically for any underlying intraabdominal infection. The patient recently had an abdominal ultrasound done on 01/18/2017 that was negative for any ascites. 2. Sepsis. Etiology unclear. The patient has significant leukocytosis, bandemia and tachycardia greater than 90 per minute. Pancultures will be obtained. The patient will be maintained on empiric antibiotics including coverage for anaerobes. 3. Transaminitis with hyperbilirubinemia. Most probably secondary to underlying alcoholic liver disease. Hepatotoxic drugs will be avoided on this patient. 4. Alcoholic hepatitis. The patient will be continued on steroids as per recommendations of gastroenterology. Gastroenterology consult will be obtained. 5. Alcohol abuse. The patient denies any recent history of alcohol abuse. The patient will be reinforced to avoid using any alcohol. 6. Coagulopathy. Most probably secondary to underlying acute alcoholic liver disease. The patient will be monitored closely for any bleeding. Plan. The patient will be admitted to inpatient telemetry floor. The patient will be kept n.p.o. except for medications. The patient will be adequately hydrated using IV fluids. The patient will be started on gastrointestinal prophylaxis. Chemical deep venous thrombosis prophylaxis will be avoided because of underlying coagulopathy. The rest of the patient's management will be based on the clinical course, the results of diagnostic studies, and inputs from consultants. Based on the patient's clinical presentation, he most probably requires more than 2 midnights' stay for further management and evaluation of his clinical presentation. The case and management of this patient was further discussed with Dr. Jaramillo. BRENNON JARAMILLO MD, AM/GREER Conf#: [id number] DID#: [id number] MTDD
[2017-01-19] MEDS: PROPRANOLOL 10 MG TAB PO SCH ×2 (15:58→21:29)
[2017-01-19] MEDS: METHYLPREDNISOLONE 4 MG TAB PO SCH (15:59)
--- NOTE | 2017-01-19 17:25 | CONS ---
DATE OF ADMISSION: 01/19/2017 DATE OF CONSULTATION: 01/19/2017 INFECTIOUS DISEASE CONSULTATION REASON FOR CONSULTATION: Antibiotic management. HISTORY OF PRESENT ILLNESS: Errol Oates is a 31-year-old male who was transferred from an outside facility because of abdominal pain and leukocytosis. Past problems include: 1. History of alcohol abuse with resultant alcoholic liver disease. 2. Alcohol related pancreatitis. 3. Cirrhosis of liver. 4. Chronic leukocytosis. 5. Pancreatitis. The patient was discharged from [facility] on 01/18/2017 following his admission for chroni c pancreatitis and abdominal pain. He was not taking any medications at home. He was scheduled to be on high dose steroids as per the recommendations of gastroenterology because of acute alcoholic h epatitis. The patient was not taking his steroids at home. He verbalized a syncopal episode at [facility] when he fell on his knees bilaterally. The patient denied any history of head trauma, denied any chest pain. He went to [facility] where he was evaluated. His white count was up to 49.7. He also had evidence of an anion gap acidosis. The patient has no evidence of lactic acidosis, and he has no left shift. He was hyperbilirubinemic. He was treated with IV ceftriaxone and Flagyl in the emergency room along with analgesics. The patient was transferred to [facility] for fu rther management because of insurance purposes. The patient denied fever. He complained of headach es and dizziness. He denied melena. PAST MEDICAL HISTORY: Operations as outlined. FAMILY HISTORY: Noncontributory. SOCIAL HISTORY: He lives at home. He used to be a heavy alcohol abuser. He smokes half pack of ci garettes per day. MEDICATIONS: Per chart. He is on methylprednisolone 32 mg daily. ALLERGIES: HE IS ALLERGIC TO SHELLFISH. REVIEW OF SYSTEMS: Noncontributory. PHYSICAL EXAMINATION: GENERAL: The patient is an obese male lying in bed in no acute distress. VITAL SIGNS: Stable. He is afebrile. SKIN: Without generalized rash. HEENT: Within normal limits. NECK: Supple. LYMPH NODES: None palpable. CHEST: Decreased breath sounds at the bases. HEART: Without murmur or gallop. ABDOMEN: Soft, nontender, without organosplenomegaly or masses. He has diffuse tenderness, especia lly in the right upper quadrant, epigastric, and left upper quadrant. No rebound tenderness or guar ding. EXTREMITIES: Without cyanosis or clubbing. He has 1+ edema. RECTAL AND GENITAL: Deferred. NEUROLOGIC: No focal neurological abnormalities. IMPRESSION AND PLAN: The patient is a 31-year-old male with past medical history of chronic pancrea titis, alcoholic liver disease, recurrent leukocytosis, evaluated for significant abdominal pain and significant leukocytosis. CT scan of the abdomen was ordered. He was started on empirical antibio tics. His white count today is 52.3, H and H 11.4 and 33.4, platelet count 320,000. BUN and creati nine 10/0.5. CT scan of the abdomen and pelvis showed no evidence of urolithiasis, obstructive urop athy, diverticulitis, or appendicitis. The patient has hepatosplenomegaly visible but no pathologic ally enlarged mesenteric nodes, small to moderate ascites, ill-defined consolidation in the anterior segment, right upper lobe only partially included in the study. The patient is on Zosyn. The ghada ent will be seen by Dr. Ospina as well. The elevated white count also may be related to methylpredn isolone that he is currently taking, but the laboratory white count of 52.3 is quite significant. Nelda medrano has leukemoid reaction, possibly related to pancreatitis. His alkaline phosphatase is 337. Total protein is 6.6, albumin 3.1, globulin 3.5. Ammonia 38, alkaline phosphatase 337, AST 35, ALT 41. We will continue him on current therapy. I will dictate my findings to the hospitalist and to Dr. Anthony noel. Dictated By: ARLET YANG MD, JD/GREER Conf#: [id number] DID#: [id number]
--- NOTE | 2017-01-19 19:18 | PN ---
Date/Time of Note Date/Time of Note DATE: 01/19/17 TIME: 19:14 Assessment/Plan VTE Prophylaxis VTE Prophylaxis Intervention: SCD's Lines/Catheters [facility] Peripheral IV Urinary Cath still in place: No Assessment/Plan Assessment/Plan Acute alcoholic hepatitis, high discriminant function which denotes high mortality and benefit for steroid treatment Chronic alcoholism Polysubstance abuse Plan: Methylprednisolone 32 mg daily 28 days then taper over 2 weeks Advance diet as tolerated Abstinence critical to his recovery and lifespan Subjective 24 Hr Interval Summary Free Text/Dictation Patient recently discharged on a regimen of prednisone for alcoholic hepatitis The patient did not follow medical recommendations and went back to drinking As he developed progressive epigastric abdominal pain, nausea and vomiting he discontinued drinking and presented to the emergency room There is no evidence of active hepatitis his liver disease i.e. alcoholic hepatitis appears to be worse as expected Patient appears to have insight as to the nature of his problem and states he has hit "rock-bottom" and that this time he will stop drinking Unfortunately he said something very similar to previous hospitalization. At the present time he complains of abdominal pain which is difficult to explain that he requires and requests narcotics [id number] Exam/Review of Systems Vital Signs Vitals Vital Signs Date Time Temp Pulse Resp B/P Pulse Ox O2 Delivery O2 Flow Rate FiO2 01/19/17 16:10 92 01/19/17 15:52 98.1 16 100/59 97 Room Air Exam Constitutional: alert, oriented, deeply jaundice Eyes: icteric Neck: non-tender, supple Respiratory: clear to auscultation, normal air movement Cardiovascular: nl pulses, regular rate and rhythm Gastrointestinal: distended, non-tender, soft Musculoskeletal: nl extremities to inspection, nl gait and stance Extremities: normal pulses Results Result Diagram: 01/19/1790401/19/17904 Results 24 hrs Laboratory Tests Test 01/19/17 09:05 01/19/17 09:30 White Blood Count 52.3 #H Red Blood Count 3.36 L Hemoglobin 11.4 L Hematocrit 33.4 L Mean Corpuscular Volume 99.4 Mean Corpuscular Hemoglobin 33.9 H Mean Corpuscular Hemoglobin Concent 34.1 Red Cell Distribution Width 17.7 H Platelet Count 320 Mean Platelet Volume 10.9 H Neutrophils % 73.0 Band Neutrophils % 15.0 H Lymphocytes % 5.0 L Monocytes % 4.0 Eosinophils % 1.0 Basophils % 1.0 Myelocytes % 1.0 H Neutrophils # 38.2 H Lymphocytes # 2.6 Monocytes # 2.1 H Eosinophils # 0.5 Basophils # 0.5 H Myelocytes # 0.5 Sodium Level 135 Potassium Level 4.1 Chloride Level 107 Carbon Dioxide Level 22 Anion Gap 10 # Blood Urea Nitrogen 10 Creatinine 0.50 L Glucose Level 131 # Lactic Acid Level 1.7 Calcium Level 8.6 Phosphorus Level 3.8 Magnesium Level 2.3 Iron Level 41 Total Iron Binding Capacity 165 L Percent Iron Saturation 25 Ferritin 337.0 Total Bilirubin 11.2 H Direct Bilirubin 9.30 H Indirect Bilirubin 1.9 H Aspartate Amino Transf (AST/SGOT) 35 Alanine Aminotransferase (ALT/SGPT) 41 Alkaline Phosphatase 337 H Ammonia 38 #H Total Protein 6.6 Albumin 3.1 L Globulin 3.50 H Albumin/Globulin Ratio 0.88 Amylase Level < 30 Lipase 29 Prothrombin Time 21.0 H Prothrombin Time Ratio 1.6 INR International Normalized Ratio 1.80 Activated Partial Thromboplast Time 42.1 H Medications Medications Current Medications Sodium Chloride (NS) 1,000 ml @ 100 mls/hr Q10H IV Last administered on 11:09; Admin Dose 100 MLS/HR; Start 01/19/17 at 08:53 Lorazepam (Ativan) 0.5 mg Q6H PRN IV ANXIETY; Start 01/19/17 at 09:00 Ondansetron HCl (Zofran Inj) 4 mg Q6H PRN IV NAUSEA AND/OR VOMITING; Start 07/26 at 09:00 Morphine Sulfate (morphine) 2 mg Q4H PRN IV PAIN LEVEL 7-10 Last administered on 01/19/17 15:57; Admin Dose 2 MG; Start 01/19/17 at 09:00 Pantoprazole 40 mg 40 mg DAILY@06 IV ; Start 01/20/17 at 06:00 Piperacillin Sod/ Tazobactam Sod (Zosyn 3.375gm/ 100 ml (Pmx)) 100 ml @ 200 mls /hr Q6 IVPB Last administered on 01/19/17 17:31; Admin Dose 200 MLS/HR; Start 01/19/17 at 10:00 Ergocalciferol (Drisdol) 50,000 unit Q7D PO ; Start 01/20/17 at 09:00 Folic Acid (Folic Acid) 2 mg DAILY PO ; Start 01/20/17 at 09:00 Hydrocortisone (Anusol-Hc Supp) 25 mg TID PRN [place] HEMORROID PAIN/ITCHING; Start 01/19/17 at 11:30 Propranolol HCl (Inderal) 10 mg TID PO Last administered on 01/19/17 15:58; Admin Dose 10 MG; Start 01/19/17 at 13:00 Senna/Docusate Sodium (Senokot-S) 2 tab HS PO ; Start 01/19/17 at 21:00 Methylprednisolone (Medrol) 32 mg DAILY PO Last administered on 01/19/17 15:59 ; Admin Dose 32 MG; Start 01/19/17 at 13:00 IFTIKHAR GONZALEZ MD Jan 19, 2017 19:17
[2017-01-19] MEDS: SENNA/DOCUSATE NA (8.6MG/50MG) TAB PO SCH (21:29)
[2017-01-20] VITALS (12 sets, daily range): BP systolic 84–125; BP diastolic 49–59; PULSE 66–90; RESP 18–20
[2017-01-20] MEDS: PIPER-TAZO 3.375 GM IV (PMX) 100 ML IVPB SCH ×5 (00:46→23:44)
[2017-01-20] MEDS: SOD CHLORIDE 0.9% 1,000 ML IV SCH ×3 (00:52→23:44)
[2017-01-20] MEDS: morphine 2 MG INJ IV PRN ×5 (04:28→23:44)
[2017-01-20] MEDS: PANTOPRAZOLE 40 MG INJ IV SCH (06:04)
[2017-01-20 07:03] LABS: ADD SCAN DIFF NO
[2017-01-20 07:14] LABS: ABNORMAL IP MESSAGE 1; HEMATOCRIT 34.2 % (42.0-52.0); HEMOGLOBIN 11.4 g/dl (14.0-18.0); MEAN CORPUSCULAR HEMOGLOBIN 33.2 pg (29.0-33.0); MEAN CORPUSCULAR HGB CONC 33.3 g/dl (32.0-37.0); MEAN CORPUSCULAR VOLUME 99.7 fl (82.0-101.0); PLATELET COUNT 331 10^3/UL (140-415); RED BLOOD COUNT 3.43 10^6/ul (4.70-6.10); RED CELL DISTRIBUTION WIDTH 18.6 % (11.5-14.5); WHITE BLOOD COUNT 46.2 10^3/ul (4.8-10.8)
[2017-01-20 07:41] LABS: INR 1.84; PROTIME 21.4 Sec (12.2-14.2); PT RATIO 1.7
[2017-01-20 07:42] LABS: PARTIAL THROMBOPLASTIN TIME 40.5 Sec (25.0-35.0)
[2017-01-20 07:48] LABS: ALANINE AMINOTRANSFERASE 39 IU/L (13-69); ALBUMIN 3.1 g/dl (3.3-4.9); ALBUMIN/GLOBULIN RATIO 0.93; ALKALINE PHOSPHATASE 332 IU/L (42-121); AMYLASE < 30 U/L (11-123); ANION GAP 11 (8-16); ASPARTATE AMINO TRANSFERASE 40 IU/L (15-46); BILIRUBIN,INDIRECT 1.9 mg/dl (0-1.1); BLOOD UREA NITROGEN 13 mg/dl (7-20); CALCIUM 8.1 mg/dl (8.4-10.2); CARBON DIOXIDE 21 mmol/L (21-31); CHLORIDE 109 mmol/L (97-110); CREATININE 0.53 mg/dl (0.61-1.24); GLUCOSE 108 mg/dl (70-220); POTASSIUM 4.2 mmol/L (3.5-5.1); SODIUM 137 mmol/L (135-144); TOTAL PROTEIN 6.4 g/dl (6.1-8.1)
[2017-01-20 07:52] LABS: MAGNESIUM 2.3 mg/dl (1.7-2.5); PHOSPHORUS 4.5 mg/dl (2.5-4.9)
[2017-01-20 09:09] LABS: ADD UMIC YES; UR BILIRUBIN (Dip) 3+ (NEGATIVE); UR BLOOD (Dip) NEGATIVE (NEGATIVE); UR CLARITY CLEAR (CLEAR); UR COLOR AMBER (YELLOW); UR KETONES (Dip) NEGATIVE (NEGATIVE); UR LEUKOCYTE ESTERASE (Dip) NEGATIVE (NEGATIVE); UR NITRITE (Dip) NEGATIVE (NEGATIVE); UR TOTAL PROTEIN (Dip) TRACE (NEGATIVE); UR UROBILINOGEN (Dip) 0.2 E.U./dL (0.1-1.0)
[2017-01-20] MEDS: PROPRANOLOL 10 MG TAB PO SCH ×3 (09:33→20:49)
[2017-01-20] MEDS: ERGOCALCIFEROL 50,000 UNIT CAP PO SCH (09:33)
[2017-01-20] MEDS: METHYLPREDNISOLONE 4 MG TAB PO SCH (09:33)
[2017-01-20] MEDS: FOLIC ACID 1 MG TAB PO SCH (09:33)
[2017-01-20 09:34] LABS: ICTOTEST POSITIVE (NEGATIVE); URINE RBCS NONE SEEN /HPF (0)
[2017-01-20 09:48] LABS: BARBITURATES NEGATIVE (NEGATIVE); BENZODIAZEPINES POSITIVE (NEGATIVE); CANNABINOIDS NEGATIVE (NEGATIVE); COCAINE NEGATIVE (NEGATIVE)
[2017-01-20 09:49] LABS: OPIATES POSITIVE (NEGATIVE)
[2017-01-20 10:26] LABS: EOSINOPHILS # 0.5 10^3/ul (0.0-0.5); LYMPHOCYTES # 2.3 10^3/ul (0.8-2.9); MONOCYTE # 2.3 10^3/ul (0.3-0.9); NEUTROPHIL # 35.1 10^3/ul (1.6-7.5)
--- NOTE | 2017-01-20 14:53 | PN ---
Date/Time of Note Date/Time of Note DATE: 01/20/17 TIME: 14:53 Assessment/Plan VTE Prophylaxis VTE Prophylaxis Intervention: contraindicated Lines/Catheters IV C[facility]ter Type (from [facility]): Peripheral IV Urinary Cath still in place: No Assessment/Plan Chief Complaint/Hosp Course 1. Abdominal pain. Etiology could be from underlying alcoholic hepatitis. CT scan of the abdomen and pelvis showed hepatosplenomegaly and small to moderate ascites with ill-defined consolidation in the anterior segment of the right upper lobe. 2. Sepsis. Etiology unclear. Cultures negative so far. On antibiotics as per infectious diseases. No evidence of any septic shock 3. Transaminitis with hyperbilirubinemia. Most probably secondary to underlying alcoholic liver disease. Hepatotoxic drugs will be avoided on this patient. 4. Alcoholic hepatitis. The patient will be continued on steroids as per recommendations of gastroenterology. Gastroenterology following. 5. Alcohol abuse. The patient denies any recent history of alcohol abuse. The patient will be reinforced to avoid using any alcohol. 6. Coagulopathy. Most probably secondary to underlying acute alcoholic liver disease. The patient will be monitored closely for any bleeding. 7. Fluids, electrolytes, and nutrition. N.p.o. except for ice chips. 8. DVT prophylaxis. Contraindicated. 9. Gastrointestinal prophylaxis. Proton pump inhibitors. 10. Plan. Continue antibiotics as per infectious diseases. Continue gastroenterology and infectious disease recommendations. Case discussed with Dr. Jaramillo. Problems: Subjective 24 Hr Interval Summary Free Text/Dictation Abdominal pain better controlled. Complains of dry mouth. Exam/Review of Systems Vital Signs Vitals Vital Signs Date Time Temp Pulse Resp B/P Pulse Ox O2 Delivery O2 Flow Rate FiO2 01/20/17 12:02 67 01/20/17 11:58 97.6 20 94/55 96 01/19/17 15:52 Room Air Intake and Output 01/19/17 01/19/17 01/20/17 14:59 22:59 06:59 Intake Total 400 ml Output Total 50 ml Balance 350 ml Exam GENERAL: This is an obese male lying in bed in no apparent distress. HEENT: Head normocephalic and atraumatic. Eyes: Icteric sclerae. Conjunctivae clear. ENT: Nasal septum midline. Oral mucosa is dry. NECK: Supple. No JVD noticed. RESPIRATORY: Bilateral diminished breath sounds. No adventitious breath sounds heard. No use of accessory muscles of respiration. CARDIAC: Regular rate and S2. ABDOMEN: Diffuse tenderness specifically in the right upper quadrant, epigastric and left upper quadrant. No rebound tenderness or guarding. GENITOURINARY: Deferred. EXTREMITIES: No cyanosis, no clubbing. Bilateral lower extremity 1+ pitting edema. Peripheral pulses palpable. NEUROLOGIC: The patient is awake, alert and oriented. Cranial nerves are grossly intact. SKIN: Generalized icterus. Results Result Diagram: 01/20/17 0620 01/20/17 0620 Results 24 hrs Laboratory Tests Test 01/20/17 06:00 01/20/17 06:20 Urine Opiates Screen POSITIVE Urine Barbiturates NEGATIVE Urine Amphetamines Screen NEGATIVE Urine Benzodiazepines Screen POSITIVE Urine Cocaine Screen NEGATIVE Urine Cannabinoids NEGATIVE White Blood Count 46.2 H Red Blood Count 3.43 L Hemoglobin 11.4 L Hematocrit 34.2 L Mean Corpuscular Volume 99.7 Mean Corpuscular Hemoglobin 33.2 H Mean Corpuscular Hemoglobin Concent 33.3 Red Cell Distribution Width 18.6 H Platelet Count 331 Mean Platelet Volume 11.0 H Neutrophils % 76.0 Band Neutrophils % 13.0 H Lymphocytes % 5.0 L Monocytes % 5.0 Eosinophils % 1.0 Neutrophils # 35.1 H Lymphocytes # 2.3 Monocytes # 2.3 H Eosinophils # 0.5 Prothrombin Time 21.4 H Prothrombin Time Ratio 1.7 INR International Normalized Ratio 1.84 Activated Partial Thromboplast Time 40.5 H Sodium Level 137 Potassium Level 4.2 Chloride Level 109 Carbon Dioxide Level 21 Anion Gap 11 Blood Urea Nitrogen 13 Creatinine 0.53 L Glucose Level 108 Calcium Level 8.1 L Phosphorus Level 4.5 Magnesium Level 2.3 Total Bilirubin 10.0 H Direct Bilirubin 8.10 H Indirect Bilirubin 1.9 H Aspartate Amino Transf (AST/SGOT) 40 Alanine Aminotransferase (ALT/SGPT) 39 Alkaline Phosphatase 332 H Ammonia 29 Total Protein 6.4 Albumin 3.1 L Globulin 3.30 H Albumin/Globulin Ratio 0.93 Amylase Level < 30 Lipase 25 Medications Medications Current Medications Sodium Chloride (NS) 1,000 ml @ 100 mls/hr Q10H IV Last administered on t 11:46; Admin Dose 100 MLS/HR; Start 01/19/17 at 08:53 Lorazepam (Ativan) 0.5 mg Q6H PRN IV ANXIETY; Start 01/19/17 at 09:00 Ondansetron HCl (Zofran Inj) 4 mg Q6H PRN IV NAUSEA AND/OR VOMITING; Start 07/26 at 09:00 Morphine Sulfate (morphine) 2 mg Q4H PRN IV PAIN LEVEL 7-10 Last administered on 01/20/17 14:41; Admin Dose 2 MG; Start 01/19/17 at 09:00 Pantoprazole 40 mg 40 mg DAILY@06 IV Last administered on 01/20/17 06:04; Admin Dose 40 MG; Start 01/20/17 at 06:00 Piperacillin Sod/ Tazobactam Sod (Zosyn 3.375gm/ 100 ml (Pmx)) 100 ml @ 200 mls /hr Q6 IVPB Last administered on 01/20/17 11:46; Admin Dose 200 MLS/HR; Start 01/19/17 at 10:00 Ergocalciferol (Drisdol) 50,000 unit Q7D PO Last administered on 01/20/17 09: 33; Admin Dose 50,000 UNIT; Start 01/20/17 at 09:00 Folic Acid (Folic Acid) 2 mg DAILY PO Last administered on 01/20/17 09:33; Admin Dose 2 MG; Start 01/20/17 at 09:00 Hydrocortisone (Anusol-Hc Supp) 25 mg TID PRN [place] HEMORROID PAIN/ITCHING; Start 01/19/17 at 11:30 Propranolol HCl (Inderal) 10 mg TID PO Last administered on 01/19/17 21:29; Admin Dose 10 MG; Start 01/19/17 at 13:00 Senna/Docusate Sodium (Senokot-S) 2 tab HS PO Last administered on 01/19/17 21 :29; Admin Dose 2 TAB; Start 01/19/17 at 21:00 Methylprednisolone (Medrol) 32 mg DAILY PO Last administered on 01/20/17 09:33 ; Admin Dose 32 MG; Start 01/19/17 at 13:00 BRENNON RASMUSSEN NP Jan 20, 2017 14:53
--- NOTE | 2017-01-20 15:51 | PN ---
DATE: 01/20/2017 SUBJECTIVE: No events overnight. No fevers. The patient is awake, looks comfortable, denies pain, no vomiting, no diarrhea. LABORATORY DATA: WBC today 46.2, platelets 331, neutrophils 76, bands 13, lymphs 5, monos 5. BUN 13, creatinine 0.53. Urinalysis was negative for nitrite and leukocyte esterase. MICROBIOLOGY: Blood cultures remain negative. DIAGNOSTICS: CT of the abdomen and pelvis revealed ill-defined consolidation in the anterior segment right upper lobe, no evidence of obstructive uropathy, small to moderate ascites and hepatosplenomegaly. ANTIMICROBIALS: The patient is on: 1. Zosyn. 2. He is also on Medrol. PHYSICAL EXAMINATION: GENERAL: This is a well-developed, ill-appearing, middle-aged man who is awake, in no distress. HEENT: Head atraumatic, normocephalic. Sclerae anicteric. Buccal mucosa dry. NECK: Supple. CHEST: Rise symmetrical. Breath sounds diminished. HEART: S1, S2. ABDOMEN: Soft, bowel tones present. EXTREMITIES: No cyanosis. Bilateral lower extremities edema. ASSESSMENT: 1. Leukocytosis, ongoing. The patient is on steroids and has a history of leukocytosis on previous admission. 2. Pneumonia. 3. History of alcoholic pancreatitis. 4. Chronic alcoholism and polysubstance abuse. 6. Acute alcoholic hepatitis. PLAN: The patient remains clinically stable. We are going to keep him on Zosyn for now. We will check his chest x-ray in a.m. Follow gastroenterology recommendations. Dictated By: ABDIRASHID CALZADA CHIEF ENGINEER [employer] Conf#: [id number] DID#: [id number] SKYLER
--- NOTE | 2017-01-20 16:37 | PN ---
Date/Time of Note Date/Time of Note DATE: 01/20/17 TIME: 16:35 Assessment/Plan VTE Prophylaxis VTE Prophylaxis Intervention: ambulation Lines/Catheters IV [facility] Type (from [facility] Peripheral IV Urinary Cath still in place: No Assessment/Plan Assessment/Plan cute alcoholic hepatitis, high discriminant function which denotes high mortality and benefit for steroid treatment Chronic alcoholism Polysubstance abuse Plan: Methylprednisolone 32 mg daily 28 days then taper over 2 weeks Advance diet as tolerated Abstinence critical to his recovery and lifespan Subjective 24 Hr Interval Summary Free Text/Dictation * Course reviewed with RN * Patient seen and examined * denies abdominal pain * Liver enzymes still elevated Exam/Review of Systems Vital Signs Vitals Vital Signs Date Time Temp Pulse Resp B/P Pulse Ox O2 Delivery O2 Flow Rate FiO2 01/20/17 16:09 66 01/20/17 15:51 98.3 20 107/59 98 01/19/17 15:52 Room Air Intake and Output 01/19/17 01/19/17 01/20/17 15:00 23:00 07:00 Intake Total 400 ml Output Total 50 ml Balance 350 ml Exam Constitutional: alert Eyes: icteric Neck: non-tender, supple Respiratory: clear to auscultation, normal air movement Cardiovascular: nl pulses, regular rate and rhythm Gastrointestinal: bowel sounds, distended, non-tender, soft Musculoskeletal: nl extremities to inspection Extremities: normal pulses Results Result Diagram: 01/20/17 0620 01/20/17 0620 Results 24 hrs Laboratory Tests Test 01/20/17 06:00 01/20/17 06:20 Urine Opiates Screen POSITIVE Urine Barbiturates NEGATIVE Urine Amphetamines Screen NEGATIVE Urine Benzodiazepines Screen POSITIVE Urine Cocaine Screen NEGATIVE Urine Cannabinoids NEGATIVE White Blood Count 46.2 H Red Blood Count 3.43 L Hemoglobin 11.4 L Hematocrit 34.2 L Mean Corpuscular Volume 99.7 Mean Corpuscular Hemoglobin 33.2 H Mean Corpuscular Hemoglobin Concent 33.3 Red Cell Distribution Width 18.6 H Platelet Count 331 Mean Platelet Volume 11.0 H Neutrophils % 76.0 Band Neutrophils % 13.0 H Lymphocytes % 5.0 L Monocytes % 5.0 Eosinophils % 1.0 Neutrophils # 35.1 H Lymphocytes # 2.3 Monocytes # 2.3 H Eosinophils # 0.5 Prothrombin Time 21.4 H Prothrombin Time Ratio 1.7 INR International Normalized Ratio 1.84 Activated Partial Thromboplast Time 40.5 H Sodium Level 137 Potassium Level 4.2 Chloride Level 109 Carbon Dioxide Level 21 Anion Gap 11 Blood Urea Nitrogen 13 Creatinine 0.53 L Glucose Level 108 Calcium Level 8.1 L Phosphorus Level 4.5 Magnesium Level 2.3 Total Bilirubin 10.0 H Direct Bilirubin 8.10 H Indirect Bilirubin 1.9 H Aspartate Amino Transf (AST/SGOT) 40 Alanine Aminotransferase (ALT/SGPT) 39 Alkaline Phosphatase 332 H Ammonia 29 Total Protein 6.4 Albumin 3.1 L Globulin 3.30 H Albumin/Globulin Ratio 0.93 Amylase Level < 30 Lipase 25 Medications Medications Current Medications Sodium Chloride (NS) 1,000 ml @ 100 mls/hr Q10H IV Last administered on 11:46; Admin Dose 100 MLS/HR; Start 01/19/17 at 08:53 Lorazepam (Ativan) 0.5 mg Q6H PRN IV ANXIETY; Start 01/19/17 at 09:00 Ondansetron HCl (Zofran Inj) 4 mg Q6H PRN IV NAUSEA AND/OR VOMITING; Start 07/26 at 09:00 Morphine Sulfate (morphine) 2 mg Q4H PRN IV PAIN LEVEL 7-10 Last administered on 01/20/17 14:41; Admin Dose 2 MG; Start 01/19/17 at 09:00 Pantoprazole 40 mg 40 mg DAILY@06 IV Last administered on 01/20/17 06:04; Admin Dose 40 MG; Start 01/20/17 at 06:00 Piperacillin Sod/ Tazobactam Sod (Zosyn 3.375gm/ 100 ml (Pmx)) 100 ml @ 200 mls /hr Q6 IVPB Last administered on 01/20/17 11:46; Admin Dose 200 MLS/HR; Start 01/19/17 at 10:00 Ergocalciferol (Drisdol) 50,000 unit Q7D PO Last administered on 01/20/17 09: 33; Admin Dose 50,000 UNIT; Start 01/20/17 at 09:00 Folic Acid (Folic Acid) 2 mg DAILY PO Last administered on 01/20/17 09:33; Admin Dose 2 MG; Start 01/20/17 at 09:00 Hydrocortisone (Anusol-Hc Supp) 25 mg TID PRN [place] HEMORROID PAIN/ITCHING; Start 01/19/17 at 11:30 Propranolol HCl (Inderal) 10 mg TID PO Last administered on 01/19/17 21:29; Admin Dose 10 MG; Start 01/19/17 at 13:00 Senna/Docusate Sodium (Senokot-S) 2 tab HS PO Last administered on 01/19/17 21 :29; Admin Dose 2 TAB; Start 01/19/17 at 21:00 Methylprednisolone (Medrol) 32 mg DAILY PO Last administered on 01/20/17 09:33 ; Admin Dose 32 MG; Start 01/19/17 at 13:00 CROW ALEJANDRO NP Jan 20, 2017 16:37
[2017-01-20] MEDS: SENNA/DOCUSATE NA (8.6MG/50MG) TAB PO SCH (20:49)
[2017-01-20] MEDS ORDERED: VITAMIN A & D 5 GM OINT PACKET TOP ONE (22:07)
--- NOTE | 2017-01-20 22:15 | RADRPT ---
PROCEDURE: XR Chest. CLINICAL INDICATION: Pneumonia. TECHNIQUE: Chest x-ray, single view. COMPARISON: 10/08/2016. FINDINGS: The cardiac silhouette is slightly magnified. Low lung volumes are observed. Minimal mild basilar a telectatic changes are observed. There is no focal pulmonary parenchymal opacification. Skeletal st ructures and upper abdomen are unremarkable. IMPRESSION: Low lung volumes with minimal mild basilar atelectatic changes. RPTAT: HLST .Sofie Farrar MD, MD Date Time Electronically viewed and signed by .Sofie Farrar MD, MD on 01/20/2017 22:14 .T/
[2017-01-21] VITALS (11 sets, daily range): BP systolic 99–123; BP diastolic 56–63; PULSE 75–83; RESP 18–19
[2017-01-21] MEDS: SOD CHLORIDE 0.9% 1,000 ML IV SCH ×3 (00:48→21:25)
[2017-01-21] MEDS: morphine 2 MG INJ IV PRN ×5 (03:44→21:28)
[2017-01-21] MEDS: ONDANSETRON 4 MG INJ IV PRN (03:49)
[2017-01-21] MEDS: PIPER-TAZO 3.375 GM IV (PMX) 100 ML IVPB SCH ×2 (05:45→12:30)
[2017-01-21] MEDS: PANTOPRAZOLE 40 MG INJ IV SCH (05:45)
[2017-01-21 07:09] LABS: ADD SCAN DIFF NO
[2017-01-21 07:10] LABS: ABNORMAL IP MESSAGE 1; HEMATOCRIT 34.5 % (42.0-52.0); HEMOGLOBIN 11.4 g/dl (14.0-18.0); MEAN CORPUSCULAR HEMOGLOBIN 33.5 pg (29.0-33.0); MEAN CORPUSCULAR VOLUME 101.5 fl (82.0-101.0); MEAN PLATELET VOLUME 11.2 fl (7.4-10.4); PLATELET COUNT 311 10^3/UL (140-415); RED CELL DISTRIBUTION WIDTH 18.6 % (11.5-14.5)
[2017-01-21 07:53] LABS: MAGNESIUM 2.4 mg/dl (1.7-2.5); PHOSPHORUS 3.5 mg/dl (2.5-4.9)
[2017-01-21 07:54] LABS: BILIRUBIN,DIRECT 6.6 mg/dl (0.00-0.20); BILIRUBIN,INDIRECT 1.7 mg/dl (0-1.1); BILIRUBIN,TOTAL 8.3 mg/dl (0.2-1.3)
[2017-01-21 08:11] LABS: ALBUMIN 2.9 g/dl (3.3-4.9); BILIRUBIN,DIRECT 6.8 mg/dl (0.00-0.20); BILIRUBIN,INDIRECT 1.7 mg/dl (0-1.1); BILIRUBIN,TOTAL 8.5 mg/dl (0.2-1.3); CALCIUM 8.1 mg/dl (8.4-10.2); CREATININE 0.59 mg/dl (0.61-1.24); POTASSIUM 4.1 mmol/L (3.5-5.1); TOTAL PROTEIN 5.8 g/dl (6.1-8.1)
[2017-01-21] MEDS: PROPRANOLOL 10 MG TAB PO SCH ×3 (08:11→21:26)
[2017-01-21] MEDS: FOLIC ACID 1 MG TAB PO SCH (08:16)
[2017-01-21] MEDS: METHYLPREDNISOLONE 4 MG TAB PO SCH (08:16)
[2017-01-21 10:36] LABS: BASOPHIL # 1.3 10^3/ul (0.0-0.1); EOSINOPHILS # 0.4 10^3/ul (0.0-0.5); LYMPHOCYTES # 2.1 10^3/ul (0.8-2.9); MONOCYTE # 1.7 10^3/ul (0.3-0.9); NEUTROPHIL # 29.4 10^3/ul (1.6-7.5)
--- NOTE | 2017-01-21 13:13 | PN ---
Date/Time of Note Date/Time of Note DATE: 01/21/17 TIME: 13:08 Assessment/Plan VTE Prophylaxis VTE Prophylaxis Intervention: SCD's Lines/Catheters IV Catheter Type (from [facility]): Peripheral IV Urinary Cath still in place: No Assessment/Plan Chief Complaint/Hosp Course Assessment and plan 1. Abdominal pain. Patient does have underlying alcoholic hepatitis. CT scan of the abdomen did again reveal hepatosplenomegaly. Gastroneurologist following. Continue with prednisone as well as diuretic therapy. 2. Suspect sepsis. Etiology unclear at this time. Cultures negative. On antibiotics per ID recommendations. No evidence of shock at this time. 3. Transaminitis with hyperbilirubinemia suspect secondary to alcoholic liver cirrhosis. Avoid hepatotoxic medications as possible. GI following. Monitor LFT. 4. Alcoholic hepatitis. Alcohol cessation was advised. 5. Coagulopathy secondary to alcoholic liver disease. DVT prophylaxis: SCDs while in bed Disposition plan: Still leukocytosis. Antibiotics per ID recommendations. Follow-up with GI considering patient's hyperbilirubinemia. Discharge when medically stable and cleared by consultants. Will consider possible paracentesis should patient's abdomen become more distended. Discussed plan of care with Dr. Jaramillo Problems: Subjective 24 Hr Interval Summary Free Text/Dictation Still reports having generalized abdominal pain. Does report having some shortness of breath. Exam/Review of Systems Vital Signs Vitals Vital Signs Date Time Temp Pulse Resp B/P Pulse Ox O2 Delivery O2 Flow Rate FiO2 01/21/17 12:00 83 01/21/17 11:53 98.5 18 116/63 98 01/19/17 15:52 Room Air Intake and Output 01/20/17 01/20/17 01/21/17 15:00 23:00 07:00 Intake Total 1920 ml 1700 ml Output Total 780 ml Balance -780 ml 1920 ml 1700 ml Exam Constitutional: alert, oriented Psych: nl mood/affect Eyes: icteric Neck: supple, No jvd Respiratory: clear to auscultation Cardiovascular: regular rate and rhythm Gastrointestinal: other (Minimally distended. tender), soft Extremities: edema (Bilateral lower) 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: PEDIATRIC SPEECH LANGUAGE PATHOLOGIST II-XII intact, nl mental status, nl speech Skin: other (Jaundice) Results Result Diagram: 01/21/17 0620 01/21/17 0620 Results 24 hrs Laboratory Tests Test 01/21/17 06:20 White Blood Count 42.0 H Red Blood Count 3.40 L Hemoglobin 11.4 L Hematocrit 34.5 L Mean Corpuscular Volume 101.5 H Mean Corpuscular Hemoglobin 33.5 H Mean Corpuscular Hemoglobin Concent 33.0 Red Cell Distribution Width 18.6 H Platelet Count 311 Mean Platelet Volume 11.2 H Neutrophils % 70.0 Band Neutrophils % 14.0 H Lymphocytes % 5.0 L Monocytes % 4.0 Eosinophils % 1.0 Basophils % 3.0 H Metamyelocytes % 3.0 H Neutrophils # 29.4 H Lymphocytes # 2.1 Monocytes # 1.7 H Eosinophils # 0.4 Basophils # 1.3 H Metamyelocytes # 1.3 Sodium Level 138 Potassium Level 4.1 Chloride Level 109 Carbon Dioxide Level 21 Anion Gap 12 Blood Urea Nitrogen 11 Creatinine 0.59 L Glucose Level 86 Calcium Level 8.1 L Phosphorus Level 3.5 Magnesium Level 2.4 Total Bilirubin 8.3 H Direct Bilirubin 6.60 H Indirect Bilirubin 1.7 H Aspartate Amino Transf (AST/SGOT) 50 H Alanine Aminotransferase (ALT/SGPT) 39 Alkaline Phosphatase 331 H Total Protein 5.8 L Albumin 2.9 L Globulin 2.90 Albumin/Globulin Ratio 1.00 Medications Medications Current Medications Sodium Chloride (NS) 1,000 ml @ 100 mls/hr Q10H IV Last administered on 12:30; Admin Dose 100 MLS/HR; Start 01/19/17 at 08:53 Ondansetron HCl (Zofran Inj) 4 mg Q6H PRN IV NAUSEA AND/OR VOMITING Last administered on 01/21/17 03:49; Admin Dose 4 MG; Start 01/19/17 at 09:00 Morphine Sulfate (morphine) 2 mg Q4H PRN IV PAIN LEVEL 7-10 Last administered on 01/21/17 12:30; Admin Dose 2 MG; Start 01/19/17 at 09:00 Pantoprazole 40 mg 40 mg DAILY@06 IV Last administered on 01/21/17 05:45; Admin Dose 40 MG; Start 01/20/17 at 06:00 Piperacillin Sod/ Tazobactam Sod (Zosyn 3.375gm/ 100 ml (Pmx)) 100 ml @ 200 mls /hr Q6 IVPB Last administered on 01/21/17 12:30; Admin Dose 200 MLS/HR; Start 01/19/17 at 10:00 Ergocalciferol (Drisdol) 50,000 unit Q7D PO Last administered on 01/20/17 09: 33; Admin Dose 50,000 UNIT; Start 01/20/17 at 09:00 Folic Acid (Folic Acid) 2 mg DAILY PO Last administered on 01/21/17 08:16; Admin Dose 2 MG; Start 01/20/17 at 09:00 Hydrocortisone (Anusol-Hc Supp) 25 mg TID PRN [place] HEMORROID PAIN/ITCHING; Start 01/19/17 at 11:30 Propranolol HCl (Inderal) 10 mg TID PO Last administered on 01/21/17 12:30; Admin Dose 10 MG; Start 01/19/17 at 13:00 Senna/Docusate Sodium (Senokot-S) 2 tab HS PO Last administered on 01/20/17 20 :49; Admin Dose 2 TAB; Start 01/19/17 at 21:00 Methylprednisolone (Medrol) 32 mg DAILY PO Last administered on 01/21/17 08:16 ; Admin Dose 32 MG; Start 01/19/17 at 13:00 Lorazepam (Ativan) 0.5 mg Q6H PRN PO ANXIETY; Start 01/20/17 at 17:00 APURVA BARNARD Jan 21, 2017 13:13
--- NOTE | 2017-01-21 14:57 | CONS ---
Date/Time of Note Date/Time of Note DATE: 01/21/17 TIME: 14:55 Assessment/Plan Assessment/Plan Chief Complaint/Hosp Course SUBJECTIVE: No events overnight. No fevers. The patient looks comfortable MICROBIOLOGY: Blood cultures remain negative. DIAGNOSTICS: CT of the abdomen and pelvis revealed ill-defined consolidation in the anterior segment right upper lobe, no evidence of obstructive uropathy, small to moderate ascites and hepatosplenomegaly. ANTIMICROBIALS: 1. Zosyn. 2. He is also on Medrol. PHYSICAL EXAMINATION: GENERAL: This is a well-developed, ill-appearing, middle-aged man who is awake, in no distress. HEENT: Head atraumatic, normocephalic. Sclerae anicteric. Buccal mucosa dry. NECK: Supple. CHEST: Rise symmetrical. Breath sounds diminished. HEART: S1, S2. ABDOMEN: Soft, bowel tones present. EXTREMITIES: No cyanosis. Bilateral lower extremities edema. ASSESSMENT: 1. Leukocytosis, ongoing. The patient is on steroids and has a history of leukocytosis on previous admissions. 2. Pneumonia. 3. History of alcoholic pancreatitis. 4. Chronic alcoholism and polysubstance abuse. 6. Acute alcoholic hepatitis. PLAN: The patient remains stable. Change Zosyn to Levaquin. Follow gastroenterology recommendations. DW staff Problems: Consultation Date/Type/Reason Admit Date/Time Jan 19, 2017 at 06:11 Initial Consult Date Type of Consultation: id Exam/Review of Systems Vital Signs Vitals Vital Signs Date Time Temp Pulse Resp B/P Pulse Ox O2 Delivery O2 Flow Rate FiO2 01/21/17 12:00 83 01/21/17 11:53 98.5 18 116/63 98 01/19/17 15:52 Room Air Intake and Output 01/20/17 01/20/17 01/21/17 15:00 23:00 07:00 Intake Total 1920 ml 1700 ml Output Total 780 ml Balance -780 ml 1920 ml 1700 ml Results Result Diagram: 01/21/17 0620 01/21/17 0620 Results 24 hrs Laboratory Tests Test 01/21/17 06:20 White Blood Count 42.0 H Red Blood Count 3.40 L Hemoglobin 11.4 L Hematocrit 34.5 L Mean Corpuscular Volume 101.5 H Mean Corpuscular Hemoglobin 33.5 H Mean Corpuscular Hemoglobin Concent 33.0 Red Cell Distribution Width 18.6 H Platelet Count 311 Mean Platelet Volume 11.2 H Neutrophils % 70.0 Band Neutrophils % 14.0 H Lymphocytes % 5.0 L Monocytes % 4.0 Eosinophils % 1.0 Basophils % 3.0 H Metamyelocytes % 3.0 H Neutrophils # 29.4 H Lymphocytes # 2.1 Monocytes # 1.7 H Eosinophils # 0.4 Basophils # 1.3 H Metamyelocytes # 1.3 Sodium Level 138 Potassium Level 4.1 Chloride Level 109 Carbon Dioxide Level 21 Anion Gap 12 Blood Urea Nitrogen 11 Creatinine 0.59 L Glucose Level 86 Calcium Level 8.1 L Phosphorus Level 3.5 Magnesium Level 2.4 Total Bilirubin 8.3 H Direct Bilirubin 6.60 H Indirect Bilirubin 1.7 H Aspartate Amino Transf (AST/SGOT) 50 H Alanine Aminotransferase (ALT/SGPT) 39 Alkaline Phosphatase 331 H Total Protein 5.8 L Albumin 2.9 L Globulin 2.90 Albumin/Globulin Ratio 1.00 Medications Medications Current Medications Sodium Chloride (NS) 1,000 ml @ 100 mls/hr Q10H IV Last administered on 12:30; Admin Dose 100 MLS/HR; Start 01/19/17 at 08:53 Ondansetron HCl (Zofran Inj) 4 mg Q6H PRN IV NAUSEA AND/OR VOMITING Last administered on 01/21/17 03:49; Admin Dose 4 MG; Start 01/19/17 at 09:00 Morphine Sulfate (morphine) 2 mg Q4H PRN IV PAIN LEVEL 7-10 Last administered on 01/21/17 12:30; Admin Dose 2 MG; Start 01/19/17 at 09:00 Pantoprazole 40 mg 40 mg DAILY@06 IV Last administered on 01/21/17 05:45; Admin Dose 40 MG; Start 01/20/17 at 06:00 Piperacillin Sod/ Tazobactam Sod (Zosyn 3.375gm/ 100 ml (Pmx)) 100 ml @ 200 mls /hr Q6 IVPB Last administered on 01/21/17 12:30; Admin Dose 200 MLS/HR; Start 01/19/17 at 10:00 Ergocalciferol (Drisdol) 50,000 unit Q7D PO Last administered on 01/20/17 09: 33; Admin Dose 50,000 UNIT; Start 01/20/17 at 09:00 Folic Acid (Folic Acid) 2 mg DAILY PO Last administered on 01/21/17 08:16; Admin Dose 2 MG; Start 01/20/17 at 09:00 Hydrocortisone (Anusol-Hc Supp) 25 mg TID PRN [place] HEMORROID PAIN/ITCHING; Start 01/19/17 at 11:30 Propranolol HCl (Inderal) 10 mg TID PO Last administered on 01/21/17 12:30; Admin Dose 10 MG; Start 01/19/17 at 13:00 Senna/Docusate Sodium (Senokot-S) 2 tab HS PO Last administered on 01/20/17 20 :49; Admin Dose 2 TAB; Start 01/19/17 at 21:00 Methylprednisolone (Medrol) 32 mg DAILY PO Last administered on 01/21/17 08:16 ; Admin Dose 32 MG; Start 01/19/17 at 13:00 Lorazepam (Ativan) 0.5 mg Q6H PRN PO ANXIETY; Start 01/20/17 at 17:00 ABDIRASHID CALZADA NP Jan 21, 2017 14:56
[2017-01-21] MEDS: LEVOFLOXACIN 500MG/D5W (PMX) 100 ML IVPB SCH (15:20)
--- NOTE | 2017-01-21 18:09 | PN ---
Date/Time of Note Date/Time of Note DATE: 01/21/17 TIME: 18:07 Assessment/Plan VTE Prophylaxis VTE Prophylaxis Intervention: ambulation, contraindicated Lines/Catheters IV Catheter Type (from Nrs): Peripheral IV Urinary Cath still in place: No Assessment/Plan Assessment/Plan Assessment/Plan Acute alcoholic hepatitis, high discriminant function which denotes high mortality and benefit for steroid treatment Chronic alcoholism Polysubstance abuse Plan: Methylprednisolone 32 mg daily 28 days then taper over 2 weeks Advance diet as tolerated Abstinence critical to his recovery and lifespan Subjective 24 Hr Interval Summary Free Text/Dictation * course reviewed with RN * 'Patient seen and exmined * No complaints Exam/Review of Systems Vital Signs Vitals Vital Signs Date Time Temp Pulse Resp B/P Pulse Ox O2 Delivery O2 Flow Rate FiO2 01/21/17 16:01 75 01/21/17 15:28 98.2 19 112/57 95 01/19/17 15:52 Room Air Intake and Output 01/20/17 01/20/17 01/21/17 15:00 23:00 07:00 Intake Total 1920 ml 1700 ml Output Total 780 ml Balance -780 ml 1920 ml 1700 ml Exam Constitutional: alert Head: normocephalic Eyes: icteric Neck: non-tender, supple Respiratory: clear to auscultation, normal air movement Gastrointestinal: non-tender, soft Musculoskeletal: nl extremities to inspection, nl gait and stance Extremities: normal pulses Results Result Diagram: 01/21/17 0620 01/21/17 0620 Results 24 hrs Laboratory Tests Test 01/21/17 06:20 White Blood Count 42.0 H Red Blood Count 3.40 L Hemoglobin 11.4 L Hematocrit 34.5 L Mean Corpuscular Volume 101.5 H Mean Corpuscular Hemoglobin 33.5 H Mean Corpuscular Hemoglobin Concent 33.0 Red Cell Distribution Width 18.6 H Platelet Count 311 Mean Platelet Volume 11.2 H Neutrophils % 70.0 Band Neutrophils % 14.0 H Lymphocytes % 5.0 L Monocytes % 4.0 Eosinophils % 1.0 Basophils % 3.0 H Metamyelocytes % 3.0 H Neutrophils # 29.4 H Lymphocytes # 2.1 Monocytes # 1.7 H Eosinophils # 0.4 Basophils # 1.3 H Metamyelocytes # 1.3 Sodium Level 138 Potassium Level 4.1 Chloride Level 109 Carbon Dioxide Level 21 Anion Gap 12 Blood Urea Nitrogen 11 Creatinine 0.59 L Glucose Level 86 Calcium Level 8.1 L Phosphorus Level 3.5 Magnesium Level 2.4 Total Bilirubin 8.3 H Direct Bilirubin 6.60 H Indirect Bilirubin 1.7 H Aspartate Amino Transf (AST/SGOT) 50 H Alanine Aminotransferase (ALT/SGPT) 39 Alkaline Phosphatase 331 H Total Protein 5.8 L Albumin 2.9 L Globulin 2.90 Albumin/Globulin Ratio 1.00 Medications Medications Current Medications Sodium Chloride (NS) 1,000 ml @ 100 mls/hr Q10H IV Last administered on 12:30; Admin Dose 100 MLS/HR; Start 01/19/17 at 08:53 Ondansetron HCl (Zofran Inj) 4 mg Q6H PRN IV NAUSEA AND/OR VOMITING Last administered on 01/21/17 03:49; Admin Dose 4 MG; Start 01/19/17 at 09:00 Morphine Sulfate (morphine) 2 mg Q4H PRN IV PAIN LEVEL 7-10 Last administered on 01/21/17 16:43; Admin Dose 2 MG; Start 01/19/17 at 09:00 Pantoprazole (Protonix Iv) 40 mg DAILY@06 IV Last administered on 01/21/17 05: 45; Admin Dose 40 MG; Start 01/20/17 at 06:00 Ergocalciferol (Drisdol) 50,000 unit Q7D PO Last administered on 01/20/17 09: 33; Admin Dose 50,000 UNIT; Start 01/20/17 at 09:00 Folic Acid (Folic Acid) 2 mg DAILY PO Last administered on 01/21/17 08:16; Admin Dose 2 MG; Start 01/20/17 at 09:00 Hydrocortisone (Anusol-Hc Supp) 25 mg TID PRN [place] HEMORROID PAIN/ITCHING; Start 01/19/17 at 11:30 Propranolol HCl (Inderal) 10 mg TID PO Last administered on 01/21/17 12:30; Admin Dose 10 MG; Start 01/19/17 at 13:00 Senna/Docusate Sodium (Senokot-S) 2 tab HS PO Last administered on 01/20/17 20 :49; Admin Dose 2 TAB; Start 01/19/17 at 21:00 Methylprednisolone (Medrol) 32 mg DAILY PO Last administered on 01/21/17 08:16 ; Admin Dose 32 MG; Start 01/19/17 at 13:00 Lorazepam 0.5 mg 0.5 mg Q6H PRN PO ANXIETY; Start 01/20/17 at 17:00 Levofloxacin/ Dextrose (Levaquin 500mg/ D5W 100 ml (Pmx)) 100 ml @ 100 mls/hr Q24H IVPB Last administered on 01/21/17 15:20; Admin Dose 100 MLS/HR; Start at 15:00 CROW ALEJANDRO NP Jan 21, 2017 18:09
[2017-01-21] MEDS: SENNA/DOCUSATE NA (8.6MG/50MG) TAB PO SCH (21:25)
[2017-01-22] VITALS (12 sets, daily range): BP systolic 107–122; BP diastolic 59–79; PULSE 76–104; RESP 18–20
[2017-01-22] MEDS: morphine 2 MG INJ IV PRN ×5 (03:21→21:52)
[2017-01-22] MEDS: PANTOPRAZOLE 40 MG INJ IV SCH (05:57)
[2017-01-22] MEDS: SOD CHLORIDE 0.9% 1,000 ML IV SCH (06:25)
[2017-01-22] MEDS: ONDANSETRON 4 MG INJ IV PRN (07:48)
[2017-01-22] MEDS: PROPRANOLOL 10 MG TAB PO SCH ×3 (08:45→21:52)
[2017-01-22] MEDS: FOLIC ACID 1 MG TAB PO SCH (08:47)
[2017-01-22] MEDS: METHYLPREDNISOLONE 4 MG TAB PO SCH (08:47)
[2017-01-22 12:50] LABS: ANA SCREEN NEGATIVE (NEGATIVE)
--- NOTE | 2017-01-22 13:54 | PN ---
Date/Time of Note Date/Time of Note DATE: 01/22/17 TIME: 13:52 Assessment/Plan VTE Prophylaxis VTE Prophylaxis Intervention: ambulation Lines/Catheters IV Catheter Type (from Nrs): Peripheral IV Urinary Cath still in place: No Assessment/Plan Assessment/Plan cute alcoholic hepatitis, high discriminant function which denotes high mortality and benefit for steroid treatment Chronic alcoholism Polysubstance abuse Plan: Methylprednisolone 32 mg daily 28 days then taper over 2 weeks Advance diet as tolerated Abstinence critical to his recovery and lifespan Subjective 24 Hr Interval Summary Free Text/Dictation * Course reviewed with RN * Patient seen anaaad examined * No complaints Exam/Review of Systems Vital Signs Vitals Vital Signs Date Time Temp Pulse Resp B/P Pulse Ox O2 Delivery O2 Flow Rate FiO2 01/22/17 12:00 78 01/22/17 11:41 98.5 19 107/59 97 01/19/17 15:52 Room Air Intake and Output 01/21/17 01/21/17 01/22/17 15:00 23:00 07:00 Intake Total 500 ml 1800 ml 1400 ml Output Total 1300 ml Balance 500 ml 500 ml 1400 ml Exam Constitutional: alert Eyes: icteric Neck: non-tender, supple Respiratory: clear to auscultation, normal air movement Cardiovascular: nl pulses, regular rate and rhythm Gastrointestinal: bowel sounds, non-tender, soft Musculoskeletal: nl extremities to inspection, nl gait and stance Extremities: normal pulses Results Result Diagram: 01/21/1761901/21/1720 Medications Medications Current Medications Ondansetron HCl (Zofran Inj) 4 mg Q6H PRN IV NAUSEA AND/OR VOMITING Last administered on 01/22/17 07:48; Admin Dose 4 MG; Start 01/19/17 at 09:00 Morphine Sulfate (morphine) 2 mg Q4H PRN IV PAIN LEVEL 7-10 Last administered on 01/22/17 12:11; Admin Dose 2 MG; Start 01/19/17 at 09:00 Pantoprazole (Protonix Iv) 40 mg DAILY@06 IV Last administered on 01/22/17 05: 57; Admin Dose 40 MG; Start 01/20/17 at 06:00 Ergocalciferol (Drisdol) 50,000 unit Q7D PO Last administered on 01/20/17 09: 33; Admin Dose 50,000 UNIT; Start 01/20/17 at 09:00 Folic Acid (Folic Acid) 2 mg DAILY PO Last administered on 01/22/17 08:47; Admin Dose 2 MG; Start 01/20/17 at 09:00 Hydrocortisone (Anusol-Hc Supp) 25 mg TID PRN [place] HEMORROID PAIN/ITCHING; Start 01/19/17 at 11:30 Propranolol HCl (Inderal) 10 mg TID PO Last administered on 01/22/17 12:10; Admin Dose 10 MG; Start 01/19/17 at 13:00 Senna/Docusate Sodium (Senokot-S) 2 tab HS PO Last administered on 01/21/17 21 :25; Admin Dose 2 TAB; Start 01/19/17 at 21:00 Methylprednisolone (Medrol) 32 mg DAILY PO Last administered on 01/22/17 08:47 ; Admin Dose 32 MG; Start 01/19/17 at 13:00 Lorazepam 0.5 mg 0.5 mg Q6H PRN PO ANXIETY; Start 01/20/17 at 17:00 Levofloxacin/ Dextrose (Levaquin 500mg/ D5W 100 ml (Pmx)) 100 ml @ 100 mls/hr Q24H IVPB Last administered on 01/21/17 15:20; Admin Dose 100 MLS/HR; Start at 15:00 CROW ALEJANDRO NP Jan 22, 2017 13:54
[2017-01-22] MEDS: LEVOFLOXACIN 500MG/D5W (PMX) 100 ML IVPB SCH (15:12)
--- NOTE | 2017-01-22 17:09 | PN ---
Date/Time of Note Date/Time of Note DATE: 01/22/17 TIME: 17:07 Assessment/Plan VTE Prophylaxis VTE Prophylaxis Intervention: SCD's Lines/Catheters IV Catheter Type (from Nrs): Peripheral IV Urinary Cath still in place: No Assessment/Plan Assessment/Plan 1. Leukocytosis, ongoing. The patient is on steroids and has a history of leukocytosis on previous admissions. 2. Pneumonia. 3. History of alcoholic pancreatitis. 4. Chronic alcoholism and polysubstance abuse. 6. Acute alcoholic hepatitis. PLAN: WBC still high, On PO steroid for acute alcoholic hepatitis ID following TB slowly improving, GI following downgarde to med/surge floor, Ok to take shower SCD for DVT prophylaxis Subjective 24 Hr Interval Summary Free Text/Dictation doing ok, tolerated diet, TB still high, wants to take shower Exam/Review of Systems Vital Signs Vitals Vital Signs Date Time Temp Pulse Resp B/P Pulse Ox O2 Delivery O2 Flow Rate FiO2 01/22/17 15:40 99.1 89 19 115/63 95 01/19/17 15:52 Room Air Intake and Output 01/21/17 01/21/17 01/22/17 14:59 22:59 06:59 Intake Total 500 ml 1800 ml 1400 ml Output Total 1300 ml Balance 500 ml 500 ml 1400 ml Exam GENERAL: This is a well-developed, ill-appearing, middle-aged man who is awake, in no distress. HEENT: Head atraumatic, normocephalic. Sclerae anicteric. Buccal mucosa dry. NECK: Supple. CHEST: Rise symmetrical. Breath sounds diminished. HEART: S1, S2. ABDOMEN: Soft, bowel tones present. EXTREMITIES: No cyanosis. Bilateral lower extremities edema. Results Result Diagram: 01/21/1761901/21/17619 Medications Medications Current Medications Ondansetron HCl (Zofran Inj) 4 mg Q6H PRN IV NAUSEA AND/OR VOMITING Last administered on 01/22/17 07:48; Admin Dose 4 MG; Start 01/19/17 at 09:00 Morphine Sulfate (morphine) 2 mg Q4H PRN IV PAIN LEVEL 7-10 Last administered on 01/22/17 16:55; Admin Dose 2 MG; Start 01/19/17 at 09:00 Ergocalciferol (Drisdol) 50,000 unit Q7D PO Last administered on 01/20/17 09: 33; Admin Dose 50,000 UNIT; Start 01/20/17 at 09:00 Folic Acid (Folic Acid) 2 mg DAILY PO Last administered on 01/22/17 08:47; Admin Dose 2 MG; Start 01/20/17 at 09:00 Hydrocortisone (Anusol-Hc Supp) 25 mg TID PRN [place] HEMORROID PAIN/ITCHING; Start 01/19/17 at 11:30 Propranolol HCl (Inderal) 10 mg TID PO Last administered on 01/22/17 12:10; Admin Dose 10 MG; Start 01/19/17 at 13:00 Senna/Docusate Sodium (Senokot-S) 2 tab HS PO Last administered on 01/21/17 21 :25; Admin Dose 2 TAB; Start 01/19/17 at 21:00 Methylprednisolone (Medrol) 32 mg DAILY PO Last administered on 01/22/17 08:47 ; Admin Dose 32 MG; Start 01/19/17 at 13:00 Lorazepam 0.5 mg 0.5 mg Q6H PRN PO ANXIETY; Start 01/20/17 at 17:00 Levofloxacin/ Dextrose (Levaquin 500mg/ D5W 100 ml (Pmx)) 100 ml @ 100 mls/hr Q24H IVPB Last administered on 01/22/17 15:12; Admin Dose 100 MLS/HR; Start at 15:00 Pantoprazole (Protonix Tab) 40 mg DAILY@06 PO ; Start 01/23/17 at 06:00 ALLAN LIN MD Jan 22, 2017 17:09
[2017-01-22 17:19] LABS: MYELOPEROXIDASE ANTIBODY <1.0 AI; PROTEINASE-3 ANTIBODY <1.0 AI
--- NOTE | 2017-01-22 20:43 | CONS ---
Date/Time of Note Date/Time of Note DATE: 01/22/17 TIME: 20:41 Assessment/Plan Assessment/Plan Chief Complaint/Hosp Course SUBJECTIVE: No events overnight. No fevers. The patient is awake, looks comfortable MICROBIOLOGY: Blood cultures remain negative. DIAGNOSTICS: CT of the abdomen and pelvis revealed ill-defined consolidation in the anterior segment right upper lobe, no evidence of obstructive uropathy, small to moderate ascites and hepatosplenomegaly. ANTIMICROBIALS: Levaquin PHYSICAL EXAMINATION: GENERAL: This is a well-developed, ill-appearing, middle-aged man who is awake, in no distress. HEENT: Head atraumatic, normocephalic. Sclerae anicteric. Buccal mucosa dry. NECK: Supple. CHEST: Rise symmetrical. Breath sounds diminished. HEART: S1, S2. ABDOMEN: Soft, bowel tones present. EXTREMITIES: No cyanosis. Bilateral lower extremities edema. ASSESSMENT: 1. Leukocytosis, ongoing. The patient is on steroids and has a history of leukocytosis on previous admissions. 2. Pneumonia. 3. History of alcoholic pancreatitis. 4. Chronic alcoholism and polysubstance abuse. 6. Acute alcoholic hepatitis. PLAN: The patient remains unchanged. Continue present care. Follow gastroenterology recommendations. DW staff Problems: Consultation Date/Type/Reason Admit Date/Time Jan 19, 2017 at 06:11 Type of Consultation: id Exam/Review of Systems Vital Signs Vitals Vital Signs Date Time Temp Pulse Resp B/P Pulse Ox O2 Delivery O2 Flow Rate FiO2 01/22/17 15:40 99.1 89 19 115/63 95 01/19/17 15:52 Room Air Intake and Output 01/21/17 01/21/17 01/22/17 15:00 23:00 07:00 Intake Total 500 ml 1800 ml 1400 ml Output Total 1300 ml Balance 500 ml 500 ml 1400 ml Results Result Diagram: 01/21/17 0620 01/21/17 0620 Medications Medications Current Medications Ondansetron HCl (Zofran Inj) 4 mg Q6H PRN IV NAUSEA AND/OR VOMITING Last administered on 01/22/17 07:48; Admin Dose 4 MG; Start 01/19/17 at 09:00 Morphine Sulfate (morphine) 2 mg Q4H PRN IV PAIN LEVEL 7-10 Last administered on 01/22/17 16:55; Admin Dose 2 MG; Start 01/19/17 at 09:00 Ergocalciferol (Drisdol) 50,000 unit Q7D PO Last administered on 01/20/17 09: 33; Admin Dose 50,000 UNIT; Start 01/20/17 at 09:00 Folic Acid (Folic Acid) 2 mg DAILY PO Last administered on 01/22/17 08:47; Admin Dose 2 MG; Start 01/20/17 at 09:00 Hydrocortisone (Anusol-Hc Supp) 25 mg TID PRN [place] HEMORROID PAIN/ITCHING; Start 01/19/17 at 11:30 Propranolol HCl (Inderal) 10 mg TID PO Last administered on 01/22/17 12:10; Admin Dose 10 MG; Start 01/19/17 at 13:00 Senna/Docusate Sodium (Senokot-S) 2 tab HS PO Last administered on 01/21/17 21 :25; Admin Dose 2 TAB; Start 01/19/17 at 21:00 Methylprednisolone (Medrol) 32 mg DAILY PO Last administered on 01/22/17 08:47 ; Admin Dose 32 MG; Start 01/19/17 at 13:00 Lorazepam 0.5 mg 0.5 mg Q6H PRN PO ANXIETY; Start 01/20/17 at 17:00 Levofloxacin/ Dextrose (Levaquin 500mg/ D5W 100 ml (Pmx)) 100 ml @ 100 mls/hr Q24H IVPB Last administered on 01/22/17 15:12; Admin Dose 100 MLS/HR; Start at 15:00 Pantoprazole (Protonix Tab) 40 mg DAILY@06 PO ; Start 01/23/17 at 06:00 ABDIRASHID CALZADA NP Jan 22, 2017 20:43
[2017-01-22] MEDS: SENNA/DOCUSATE NA (8.6MG/50MG) TAB PO SCH (21:52)
[2017-01-23] MEDS: morphine 2 MG INJ IV PRN ×5 (02:17→20:12)
[2017-01-23] MEDS ORDERED: HYDROmorphONE 1 MG/ML SYG IV ONE (03:22)
--- NOTE | 2017-01-23 03:53 | RADRPT ---
PROCEDURE: Ultrasound of the scrotum. CLINICAL INDICATION: Pain. TECHNIQUE: Ultrasound of the scrotum was performed utilizing color Doppler flow imaging COMPARISON: There are no similar studies submitted for comparison. FINDINGS: Right testis: Size (cm): 3.6 x 2.3 x 2.3 Echotexture: Normal Doppler flow: Present Epididymal head: Unremarkable Hydrocele: None Varicocele: None Left testis: Size (cm): 3.9 x 2 x 2.2 Echotexture: Normal Doppler flow: Present Epididymal head: Unremarkable Hydrocele: None Varicocele: None IMPRESSION: No evidence of testicular torsion. RPTAT: HIKT .Tom Bautista MD, MD Date Time Electronically viewed and signed by .Tom Bautista MD, MD on 01/23/2017 03:53 .T/
[2017-01-23 05:50] LABS: ADD SCAN DIFF NO
[2017-01-23] MEDS: PANTOPRAZOLE (EC) 40 MG TAB PO SCH (06:10)
[2017-01-23 06:18] LABS: ABNORMAL IP MESSAGE 1; HEMATOCRIT 33.6 % (42.0-52.0); HEMOGLOBIN 11.2 g/dl (14.0-18.0); MEAN CORPUSCULAR HEMOGLOBIN 33.9 pg (29.0-33.0); MEAN CORPUSCULAR HGB CONC 33.3 g/dl (32.0-37.0); MEAN CORPUSCULAR VOLUME 101.8 fl (82.0-101.0); MEAN PLATELET VOLUME 11.4 fl (7.4-10.4); PLATELET COUNT 258 10^3/UL (140-415); RED CELL DISTRIBUTION WIDTH 18.6 % (11.5-14.5)
[2017-01-23 06:37] LABS: INR 1.72; PROTIME 20.3 Sec (12.2-14.2); PT RATIO 1.6
[2017-01-23 06:38] LABS: PARTIAL THROMBOPLASTIN TIME 38.8 Sec (25.0-35.0)
[2017-01-23 07:45] LABS: EOSINOPHILS # 0.2 10^3/ul (0.0-0.5); LYMPHOCYTES # 0.1 10^3/ul (0.8-2.9); MONOCYTE # 0.1 10^3/ul (0.3-0.9)
[2017-01-23 07:46] LABS: TOXIC GRANULATION 1+
[2017-01-23 08:44] VITALS: BP 115/56; RESP 17
[2017-01-23] MEDS: PROPRANOLOL 10 MG TAB PO SCH ×4 (09:00→20:11)
[2017-01-23] MEDS: FOLIC ACID 1 MG TAB PO SCH (09:00)
[2017-01-23] MEDS: METHYLPREDNISOLONE 4 MG TAB PO SCH (09:01)
--- NOTE | 2017-01-23 09:13 | PN ---
Date/Time of Note Date/Time of Note DATE: 01/23/17 TIME: 09:05 Assessment/Plan VTE Prophylaxis VTE Prophylaxis Intervention: contraindicated Lines/Catheters IV C[facility]ter Type (from [facility]): Peripheral IV Urinary Cath still in place: No Assessment/Plan Assessment/Plan Assessment/Plan Acute alcoholic hepatitis, high discriminant function which denotes high mortality and benefit for steroid treatment Chronic alcoholism Polysubstance abuse Edema bilateral T/C acute kidney injury Plan: Nephrology on board Continue present management Trend liver enzymes Advance diet as tolerated Abstinence critical to his recovery and lifespan Case was discussed with Dr Ospina Further orders will depend on clinical course Subjective 24 Hr Interval Summary Free Text/Dictation * Course reviewed with RN * Patient seen and examined * Edema of both lower extremities Exam/Review of Systems Vital Signs Vitals Vital Signs Date Time Temp Pulse Resp B/P Pulse Ox O2 Delivery O2 Flow Rate FiO2 01/23/17 08:44 98.1 88 17 115/56 95 01/19/17 15:52 Room Air Intake and Output 01/22/17 01/22/17 01/23/17 15:00 23:00 07:00 Intake Total 700 ml 1050 ml 800 ml Output Total 1000 ml 900 ml Balance 700 ml 50 ml -100 ml Exam Constitutional: alert, frail Head: atraumatic, normocephalic Eyes: icteric ENMT: mucosa pink and moist Neck: non-tender, supple Respiratory: clear to auscultation, normal air movement Cardiovascular: nl pulses, regular rate and rhythm Gastrointestinal: bowel sounds, non-tender, soft Musculoskeletal: swelling (lower extremities) Extremities: pitting pedal edema (+3) 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: nl speech, nl strength Skin: nl turgor, No rash or lesions Results Result Diagram: 01/23/17 0425 01/21/17 0620 Results 24 hrs Laboratory Tests Test 01/23/17 04:25 01/23/17 04:45 White Blood Count 7.0 # Red Blood Count 3.30 L Hemoglobin 11.2 L Hematocrit 33.6 L Mean Corpuscular Volume 101.8 H Mean Corpuscular Hemoglobin 33.9 H Mean Corpuscular Hemoglobin Concent 33.3 Red Cell Distribution Width 18.6 H Platelet Count 258 Mean Platelet Volume 11.4 H Neutrophils % 71.0 Band Neutrophils % 24.0 H Lymphocytes % 1.0 L Monocytes % 1.0 Eosinophils % 3.0 Basophils % Neutrophils # 5.0 Lymphocytes # 0.1 L Monocytes # 0.1 L Eosinophils # 0.2 Basophils # Toxic Granulation 1+ Total Bilirubin 9.0 H Direct Bilirubin 7.00 H Indirect Bilirubin 2.0 H Aspartate Amino Transf (AST/SGOT) 77 #H Alanine Aminotransferase (ALT/SGPT) 49 Alkaline Phosphatase 422 H Prothrombin Time 20.3 H Prothrombin Time Ratio 1.6 INR International Normalized Ratio 1.72 Activated Partial Thromboplast Time 38.8 H Medications Medications Current Medications Ondansetron HCl (Zofran Inj) 4 mg Q6H PRN IV NAUSEA AND/OR VOMITING Last administered on 01/22/17 07:48; Admin Dose 4 MG; Start 01/19/17 at 09:00 Morphine Sulfate (morphine) 2 mg Q4H PRN IV PAIN LEVEL 7-10 Last administered on 01/23/17 06:13; Admin Dose 2 MG; Start 01/19/17 at 09:00 Ergocalciferol (Drisdol) 50,000 unit Q7D PO Last administered on 01/20/17 09: 33; Admin Dose 50,000 UNIT; Start 01/20/17 at 09:00 Folic Acid (Folic Acid) 2 mg DAILY PO Last administered on 01/23/17 09:00; Admin Dose 2 MG; Start 01/20/17 at 09:00 Hydrocortisone (Anusol-Hc Supp) 25 mg TID PRN [place] HEMORROID PAIN/ITCHING; Start 01/19/17 at 11:30 Propranolol HCl (Inderal) 10 mg TID PO Last administered on 01/23/17 09:00; Admin Dose 10 MG; Start 01/19/17 at 13:00 Senna/Docusate Sodium (Senokot-S) 2 tab HS PO Last administered on 01/22/17 21 :52; Admin Dose 2 TAB; Start 01/19/17 at 21:00 Methylprednisolone (Medrol) 32 mg DAILY PO Last administered on 01/23/17 09:01 ; Admin Dose 32 MG; Start 01/19/17 at 13:00 Lorazepam 0.5 mg 0.5 mg Q6H PRN PO ANXIETY; Start 01/20/17 at 17:00 Levofloxacin/ Dextrose (Levaquin 500mg/ D5W 100 ml (Pmx)) 100 ml @ 100 mls/hr Q24H IVPB Last administered on 01/22/17 15:12; Admin Dose 100 MLS/HR; Start at 15:00 Pantoprazole (Protonix Tab) 40 mg DAILY@06 PO Last administered on 01/23/17 06 :10; Admin Dose 40 MG; Start 01/23/17 at 06:00 CROW ALEJANDRO NP Jan 23, 2017 09:13
[2017-01-23 12:30] VITALS: BP 114/63; PULSE 86
[2017-01-23] MEDS ORDERED: FUROSEMIDE 20 MG INJ IV ONE ×2 (14:30→17:30)
[2017-01-23] MEDS ORDERED: ALBUMIN HUMAN 25% 100 ML IV ONE ×2 (15:00→16:30)
[2017-01-23] MEDS: LEVOFLOXACIN 500MG/D5W (PMX) 100 ML IVPB SCH (15:11)
--- NOTE | 2017-01-23 19:31 | PN ---
Date/Time of Note Date/Time of Note DATE: 01/23/17 TIME: 19:29 Assessment/Plan VTE Prophylaxis VTE Prophylaxis Intervention: SCD's Lines/Catheters IV Catheter Type (from [facility]): Peripheral IV Urinary Cath still in place: No Assessment/Plan Assessment/Plan 1. Leukocytosis, ongoing. The patient is on steroids and has a history of leukocytosis on previous admissions. 2. Pneumonia. 3. History of alcoholic pancreatitis. 4. Chronic alcoholism and polysubstance abuse. 6. Acute alcoholic hepatitis. PLAN: WBC still high, On PO steroid for acute alcoholic hepatitis ID following Total Bilirubin still high - GI following SCD for DVT prophylaxis Subjective 24 Hr Interval Summary Free Text/Dictation still TB high, on PO steroid for alcoholic hepaitti s Exam/Review of Systems Vital Signs Vitals Vital Signs Date Time Temp Pulse Resp B/P Pulse Ox O2 Delivery O2 Flow Rate FiO2 01/23/17 12:30 86 114/63 01/23/17 08:44 98.1 17 95 01/19/17 15:52 Room Air Intake and Output 01/22/17 01/22/17 01/23/17 15:00 23:00 07:00 Intake Total 700 ml 1050 ml 800 ml Output Total 1000 ml 900 ml Balance 700 ml 50 ml -100 ml Exam GENERAL: + jaundice HEENT: Head atraumatic, normocephalic. Sclerae anicteric. Buccal mucosa dry. NECK: Supple. CHEST: Rise symmetrical. Breath sounds diminished. HEART: S1, S2. ABDOMEN: Soft, bowel tones present. EXTREMITIES: No cyanosis. Bilateral lower extremities edema. Results Result Diagram: 01/23/17 0425 01/21/17 0620 Results 24 hrs Laboratory Tests Test 01/23/17 04:25 01/23/17 04:45 White Blood Count 7.0 # Red Blood Count 3.30 L Hemoglobin 11.2 L Hematocrit 33.6 L Mean Corpuscular Volume 101.8 H Mean Corpuscular Hemoglobin 33.9 H Mean Corpuscular Hemoglobin Concent 33.3 Red Cell Distribution Width 18.6 H Platelet Count 258 Mean Platelet Volume 11.4 H Neutrophils % 71.0 Band Neutrophils % 24.0 H Lymphocytes % 1.0 L Monocytes % 1.0 Eosinophils % 3.0 Basophils % Neutrophils # 5.0 Lymphocytes # 0.1 L Monocytes # 0.1 L Eosinophils # 0.2 Basophils # Toxic Granulation 1+ Total Bilirubin 9.0 H Direct Bilirubin 7.00 H Indirect Bilirubin 2.0 H Aspartate Amino Transf (AST/SGOT) 77 #H Alanine Aminotransferase (ALT/SGPT) 49 Alkaline Phosphatase 422 H Prothrombin Time 20.3 H Prothrombin Time Ratio 1.6 INR International Normalized Ratio 1.72 Activated Partial Thromboplast Time 38.8 H Medications Medications Current Medications Ondansetron HCl (Zofran Inj) 4 mg Q6H PRN IV NAUSEA AND/OR VOMITING Last administered on 01/22/17 07:48; Admin Dose 4 MG; Start 01/19/17 at 09:00 Morphine Sulfate (morphine) 2 mg Q4H PRN IV PAIN LEVEL 7-10 Last administered on 01/23/17 15:11; Admin Dose 2 MG; Start 01/19/17 at 09:00 Ergocalciferol (Drisdol) 50,000 unit Q7D PO Last administered on 01/20/17 09: 33; Admin Dose 50,000 UNIT; Start 01/20/17 at 09:00 Folic Acid (Folic Acid) 2 mg DAILY PO Last administered on 01/23/17 09:00; Admin Dose 2 MG; Start 01/20/17 at 09:00 Hydrocortisone (Anusol-Hc Supp) 25 mg TID PRN [place] HEMORROID PAIN/ITCHING; Start 01/19/17 at 11:30 Propranolol HCl (Inderal) 10 mg TID PO Last administered on 01/23/17 12:41; Admin Dose 10 MG; Start 01/19/17 at 13:00 Senna/Docusate Sodium (Senokot-S) 2 tab HS PO Last administered on 01/22/17 21 :52; Admin Dose 2 TAB; Start 01/19/17 at 21:00 Methylprednisolone (Medrol) 32 mg DAILY PO Last administered on 01/23/17 09:01 ; Admin Dose 32 MG; Start 01/19/17 at 13:00 Lorazepam 0.5 mg 0.5 mg Q6H PRN PO ANXIETY; Start 01/20/17 at 17:00 Levofloxacin/ Dextrose (Levaquin 500mg/ D5W 100 ml (Pmx)) 100 ml @ 100 mls/hr Q24H IVPB Last administered on 01/23/17 15:11; Admin Dose 100 MLS/HR; Start at 15:00 Pantoprazole (Protonix Tab) 40 mg DAILY@06 PO Last administered on 01/23/17t 06 :10; Admin Dose 40 MG; Start 01/23/17 at 06:00 ALLAN LIN MD Jan 23, 2017 19:31
[2017-01-23 20:00] VITALS: BP 115/63; RESP 19
[2017-01-23] MEDS: SENNA/DOCUSATE NA (8.6MG/50MG) TAB PO SCH (20:09)
--- NOTE | 2017-01-23 21:46 | CONS ---
Date/Time of Note Date/Time of Note DATE: 01/23/17 TIME: 21:44 Assessment/Plan Assessment/Plan Chief Complaint/Hosp Course SUBJECTIVE: No events overnight. No fevers. The patient is awake, c/o scrotal pain, looks comfortable MICROBIOLOGY: Blood cultures remain negative. DIAGNOSTICS: CT of the abdomen and pelvis revealed ill-defined consolidation in the anterior segment right upper lobe, no evidence of obstructive uropathy, small to moderate ascites and hepatosplenomegaly. ANTIMICROBIALS: Levaquin PHYSICAL EXAMINATION: GENERAL: This is a well-developed, ill-appearing, middle-aged man who is awake, in no distress. HEENT: Head atraumatic, normocephalic. Sclerae anicteric. Buccal mucosa dry. NECK: Supple. CHEST: Rise symmetrical. Breath sounds diminished. HEART: S1, S2. ABDOMEN: Soft, bowel tones present. EXTREMITIES: No cyanosis. Bilateral lower extremities edema. ASSESSMENT: 1. Leukocytosis, ongoing. The patient is on steroids and has a history of leukocytosis on previous admissions. 2. Pneumonia. 3. History of alcoholic pancreatitis. 4. Chronic alcoholism and polysubstance abuse. 6. Acute alcoholic hepatitis. 7. Scrotal edema PLAN: Clinically stable. Continue present care, abx, scrotal elevation. Follow gastroenterology recommendations. DW staff Problems: Consultation Date/Type/Reason Admit Date/Time Jan 19, 2017 at 06:11 Type of Consultation: id Exam/Review of Systems Vital Signs Vitals Vital Signs Date Time Temp Pulse Resp B/P Pulse Ox O2 Delivery O2 Flow Rate FiO2 01/23/17 12:30 86 114/63 01/23/17 08:44 98.1 17 95 01/19/17 15:52 Room Air Intake and Output 01/22/17 01/22/17 01/23/17 14:59 22:59 06:59 Intake Total 700 ml 1050 ml 800 ml Output Total 1000 ml 900 ml Balance 700 ml 50 ml -100 ml Results Result Diagram: 01/23/17 0425 01/21/17 0620 Results 24 hrs Laboratory Tests Test 01/23/17 04:25 01/23/17 04:45 White Blood Count 7.0 # Red Blood Count 3.30 L Hemoglobin 11.2 L Hematocrit 33.6 L Mean Corpuscular Volume 101.8 H Mean Corpuscular Hemoglobin 33.9 H Mean Corpuscular Hemoglobin Concent 33.3 Red Cell Distribution Width 18.6 H Platelet Count 258 Mean Platelet Volume 11.4 H Neutrophils % 71.0 Band Neutrophils % 24.0 H Lymphocytes % 1.0 L Monocytes % 1.0 Eosinophils % 3.0 Basophils % Neutrophils # 5.0 Lymphocytes # 0.1 L Monocytes # 0.1 L Eosinophils # 0.2 Basophils # Toxic Granulation 1+ Total Bilirubin 9.0 H Direct Bilirubin 7.00 H Indirect Bilirubin 2.0 H Aspartate Amino Transf (AST/SGOT) 77 #H Alanine Aminotransferase (ALT/SGPT) 49 Alkaline Phosphatase 422 H Prothrombin Time 20.3 H Prothrombin Time Ratio 1.6 INR International Normalized Ratio 1.72 Activated Partial Thromboplast Time 38.8 H Medications Medications Current Medications Ondansetron HCl (Zofran Inj) 4 mg Q6H PRN IV NAUSEA AND/OR VOMITING Last administered on 01/22/17 07:48; Admin Dose 4 MG; Start 01/19/17 at 09:00 Morphine Sulfate (morphine) 2 mg Q4H PRN IV PAIN LEVEL 7-10 Last administered on 01/23/17 20:12; Admin Dose 2 MG; Start 01/19/17 at 09:00 Ergocalciferol (Drisdol) 50,000 unit Q7D PO Last administered on 01/20/17 09: 33; Admin Dose 50,000 UNIT; Start 01/20/17 at 09:00 Folic Acid (Folic Acid) 2 mg DAILY PO Last administered on 01/23/17 09:00; Admin Dose 2 MG; Start 01/20/17 at 09:00 Hydrocortisone (Anusol-Hc Supp) 25 mg TID PRN [place] HEMORROID PAIN/ITCHING; Start 01/19/17 at 11:30 Propranolol HCl (Inderal) 10 mg TID PO Last administered on 01/23/17 20:11; Admin Dose 10 MG; Start 01/19/17 at 13:00 Senna/Docusate Sodium (Senokot-S) 2 tab HS PO Last administered on 01/23/17 20 :09; Admin Dose 2 TAB; Start 01/19/17 at 21:00 Methylprednisolone (Medrol) 32 mg DAILY PO Last administered on 01/23/17 09:01 ; Admin Dose 32 MG; Start 01/19/17 at 13:00 Lorazepam 0.5 mg 0.5 mg Q6H PRN PO ANXIETY; Start 01/20/17 at 17:00 Levofloxacin/ Dextrose (Levaquin 500mg/ D5W 100 ml (Pmx)) 100 ml @ 100 mls/hr Q24H IVPB Last administered on 01/23/17 15:11; Admin Dose 100 MLS/HR; Start at 15:00 Pantoprazole (Protonix Tab) 40 mg DAILY@06 PO Last administered on 01/23/17 06 :10; Admin Dose 40 MG; Start 01/23/17 at 06:00 ABDIRASHID CALZADA NP Jan 23, 2017 21:46
[2017-01-23] MEDS: ONDANSETRON 4 MG INJ IV PRN (22:42)
[2017-01-24] MEDS: morphine 2 MG INJ IV PRN ×5 (02:11→19:48)
[2017-01-24 06:04] LABS: ADD SCAN DIFF NO
[2017-01-24] MEDS: PANTOPRAZOLE (EC) 40 MG TAB PO SCH (06:08)
[2017-01-24 06:19] LABS: ABNORMAL IP MESSAGE 1; HEMATOCRIT 32.9 % (42.0-52.0); HEMOGLOBIN 11.1 g/dl (14.0-18.0); MEAN CORPUSCULAR HEMOGLOBIN 34.4 pg (29.0-33.0); MEAN CORPUSCULAR HGB CONC 33.7 g/dl (32.0-37.0); MEAN CORPUSCULAR VOLUME 101.9 fl (82.0-101.0); MEAN PLATELET VOLUME 11.5 fl (7.4-10.4); PLATELET COUNT 256 10^3/UL (140-415); RED BLOOD COUNT 3.23 10^6/ul (4.70-6.10); RED CELL DISTRIBUTION WIDTH 18.5 % (11.5-14.5); WHITE BLOOD COUNT 51.2 10^3/ul (4.8-10.8)
[2017-01-24 06:23] LABS: INR 1.62; PROTIME 19.4 Sec (12.2-14.2); PT RATIO 1.5
[2017-01-24 06:38] VITALS: BP 112/64; PULSE 89; RESP 16
[2017-01-24 07:07] LABS: ALBUMIN 3.4 g/dl (3.3-4.9); ALBUMIN/GLOBULIN RATIO 1.06; BILIRUBIN,INDIRECT 2.5 mg/dl (0-1.1); BILIRUBIN,TOTAL 11.5 mg/dl (0.2-1.3); CALCIUM 8.4 mg/dl (8.4-10.2); CREATININE 0.57 mg/dl (0.61-1.24); POTASSIUM 3.7 mmol/L (3.5-5.1); TOTAL PROTEIN 6.6 g/dl (6.1-8.1)
[2017-01-24 08:00] VITALS: BP 114/58; RESP 18
[2017-01-24] MEDS: FOLIC ACID 1 MG TAB PO SCH (08:11)
[2017-01-24] MEDS: PROPRANOLOL 10 MG TAB PO SCH ×3 (08:11→20:40)
[2017-01-24] MEDS: METHYLPREDNISOLONE 4 MG TAB PO SCH (08:11)
--- NOTE | 2017-01-24 08:20 | PN ---
Date/Time of Note Date/Time of Note DATE: 01/24/17 TIME: 08:20 Assessment/Plan VTE Prophylaxis VTE Prophylaxis Intervention: SCD's Lines/Catheters [facility] Peripheral IV Urinary Cath still in place: No Assessment/Plan Assessment/Plan Assessment/Plan Acute alcoholic hepatitis, high discriminant function which denotes high mortality and benefit for steroid treatment Marked leukocytosis. Fairly common finding in patients with alcoholic hepatitis especially in treatment with steroids Chronic alcoholism Polysubstance abuse/poor compliance Edema bilateral T/C acute kidney injury Plan: Continue present management Trend liver enzymes/white blood cell count Advance diet as tolerated Abstinence critical to his recovery and lifespan Case was discussed with Dr Ospina Further orders will depend on clinical course Subjective 24 Hr Interval Summary Free Text/Dictation Course reviewed with nursing staff Patient requesting medication [id number] There is significant scrotal edema as well as peripheral edema White blood cell count significantly elevated, frequent finding in patients of alcoholic hepatitis and steroid treatment Exam/Review of Systems Vital Signs Vitals Vital Signs Date Time Temp Pulse Resp B/P Pulse Ox O2 Delivery O2 Flow Rate FiO2 01/24/17 06:38 98.1 89 16 112/64 98 Intake and Output 01/23/17 01/23/17 01/24/17 15:00 23:00 07:00 Intake Total 860 ml 800 ml Output Total 1225 ml Balance -365 ml 800 ml Exam Constitutional: alert, oriented 3 Head: atraumatic, normocephalic Eyes: icteric ENMT: mucosa pink and moist Neck: non-tender, supple Respiratory: clear to auscultation, normal air movement Cardiovascular: nl pulses, regular rate and rhythm Gastrointestinal: bowel sounds, non-tender, soft Musculoskeletal: swelling (lower extremities) Extremities: pitting pedal edema (+3) 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: nl speech, nl strength Skin: nl turgor, No rash or lesions Results Result Diagram: 01/24/1715 01/24/17 0515 Results 24 hrs Laboratory Tests Test 01/24/17 05:15 White Blood Count 51.2 #H Red Blood Count 3.23 L Hemoglobin 11.1 L Hematocrit 32.9 L Mean Corpuscular Volume 101.9 H Mean Corpuscular Hemoglobin 34.4 H Mean Corpuscular Hemoglobin Concent 33.7 Red Cell Distribution Width 18.5 H Platelet Count 256 Mean Platelet Volume 11.5 H Neutrophils % Eosinophils % Basophils % Neutrophils # Eosinophils # Basophils # Prothrombin Time 19.4 H Prothrombin Time Ratio 1.5 INR International Normalized Ratio 1.62 Sodium Level 135 Potassium Level 3.7 Chloride Level 99 Carbon Dioxide Level 26 Anion Gap 14 Blood Urea Nitrogen 9 Creatinine 0.57 L Glucose Level 111 Calcium Level 8.4 Total Bilirubin 11.5 H Direct Bilirubin 9.00 H Indirect Bilirubin 2.5 H Aspartate Amino Transf (AST/SGOT) 51 H Alanine Aminotransferase (ALT/SGPT) 52 Alkaline Phosphatase 363 H Total Protein 6.6 Albumin 3.4 Globulin 3.20 Albumin/Globulin Ratio 1.06 Medications Medications Current Medications Ondansetron HCl (Zofran Inj) 4 mg Q6H PRN IV NAUSEA AND/OR VOMITING Last administered on 01/23/17 22:42; Admin Dose 4 MG; Start 01/19/17 at 09:00 Morphine Sulfate (morphine) 2 mg Q4H PRN IV PAIN LEVEL 7-10 Last administered on 01/24/17 06:09; Admin Dose 2 MG; Start 01/19/17 at 09:00 Ergocalciferol (Drisdol) 50,000 unit Q7D PO Last administered on 01/20/17 09: 33; Admin Dose 50,000 UNIT; Start 01/20/17 at 09:00 Folic Acid (Folic Acid) 2 mg DAILY PO Last administered on 01/24/17 08:11; Admin Dose 2 MG; Start 01/20/17 at 09:00 Hydrocortisone (Anusol-Hc Supp) 25 mg TID PRN [place] HEMORROID PAIN/ITCHING; Start 01/19/17 at 11:30 Propranolol HCl (Inderal) 10 mg TID PO Last administered on 01/24/17 08:11; Admin Dose 10 MG; Start 01/19/17 at 13:00 Senna/Docusate Sodium (Senokot-S) 2 tab HS PO Last administered on 01/23/17 20 :09; Admin Dose 2 TAB; Start 01/19/17 at 21:00 Methylprednisolone (Medrol) 32 mg DAILY PO Last administered on 01/24/17 08:11 ; Admin Dose 32 MG; Start 01/19/17 at 13:00 Lorazepam 0.5 mg 0.5 mg Q6H PRN PO ANXIETY; Start 6/13/17 at 17:00 Levofloxacin/ Dextrose (Levaquin 500mg/ D5W 100 ml (Pmx)) 100 ml @ 100 mls/hr Q24H IVPB Last administered on 01/23/17 15:11; Admin Dose 100 MLS/HR; Start at 15:00 Pantoprazole (Protonix Tab) 40 mg DAILY@06 PO Last administered on 01/24/17 06 :08; Admin Dose 40 MG; Start 01/23/17 at 06:00 IFTIKHAR OSPINA MD Jan 24, 2017 08:20
[2017-01-24 09:03] LABS: MONOCYTE # 1.5 10^3/ul (0.3-0.9); NEUTROPHIL # 41.5 10^3/ul (1.6-7.5)
--- NOTE | 2017-01-24 12:38 | CONS ---
Date/Time of Note Date/Time of Note DATE: 01/24/17 TIME: 12:28 Assessment/Plan Assessment/Plan Chief Complaint/Hosp Course ID PROGRESS NOTE TOTAL ABX DAY # 6 => Levaquin #4 24H INTERVAL SUMMARY * Resting comfortably, calm, quiet, VSS, NAD, no fevers = ETOH withdrawal * Leukocytosis w/Bandemia -> WBC up and Bands down today * DIAGNOSTICS: * CT of the abdomen and pelvis revealed ill-defined consolidation in the anterior segment right upper lobe, no evidence of obstructive uropathy, small to moderate ascites and hepatosplenomegaly. * Ultrasound of the scrotum = unremarkable, no testicular torsion * 01/24/1751401/24/17514 PHYSICAL EXAMINATION: GENERAL: 56 yo M w/mild-moderate distress due to L>R BUEXT pain HEENT: Unremarkable NECK: Pain w/ROM CHEST: Rise symmetrical=without dyspnea on observation HEART: Radial pulse RRR ABDOMEN: Soft, nondistended SKIN: No diaphoresis, no rash ID ASSESSMENT: 56 yo M admit with: 1. SIRS w/low grade temps 98.8 - 99.+ range * Leukocytosis, ongoing = etiology #2 #3 #4 + partial steroids demargination 2. Pneumonia = CAP vs Aspiration Pneumonitis = risk factor = ETOH encephalopathy 3. History of alcoholic pancreatitis. 4. Acute ETOH withdrawal on Chronic alcoholism and polysubstance abuse. 6. Acute alcoholic hepatitis. 7. Ascites w/fluid overload and Scrotal edema INVASIVES: * CURRENT ABX: TOTAL ABX DAY #6 => Levaquin #4 ID RECOMMENDATIONS: 1. Continue current ABX 2. Aspiration precautions . . Problems: Consultation Date/Type/Reason Admit Date/Time Jan 19, 2017 at 06:11 Initial Consult Date Type of Consultation: id Exam/Review of Systems Vital Signs Vitals Vital Signs Date Time Temp Pulse Resp B/P Pulse Ox O2 Delivery O2 Flow Rate FiO2 01/24/17 08:00 98.8 80 18 114/58 96 Intake and Output 01/23/17 01/23/17 01/24/17 15:00 23:00 07:00 Intake Total 860 ml 800 ml Output Total 1225 ml Balance -365 ml 800 ml Results Result Diagram: 01/24/1751401/24/17514 Results 24 hrs Laboratory Tests Test 6/17/17 05:15 White Blood Count 51.2 #H Red Blood Count 3.23 L Hemoglobin 11.1 L Hematocrit 32.9 L Mean Corpuscular Volume 101.9 H Mean Corpuscular Hemoglobin 34.4 H Mean Corpuscular Hemoglobin Concent 33.7 Red Cell Distribution Width 18.5 H Platelet Count 256 Mean Platelet Volume 11.5 H Neutrophils % 81.0 H Band Neutrophils % 8.0 H Lymphocytes % 4.0 L Monocytes % 3.0 Eosinophils % 2.0 Basophils % Promyelocytes % 2.0 H Neutrophils # 41.5 H Lymphocytes # 2.0 Monocytes # 1.5 H Eosinophils # 1.0 H Basophils # Promyelocytes # 1.0 Prothrombin Time 19.4 H Prothrombin Time Ratio 1.5 INR International Normalized Ratio 1.62 Sodium Level 135 Potassium Level 3.7 Chloride Level 99 Carbon Dioxide Level 26 Anion Gap 14 Blood Urea Nitrogen 9 Creatinine 0.57 L Glucose Level 111 Calcium Level 8.4 Total Bilirubin 11.5 H Direct Bilirubin 9.00 H Indirect Bilirubin 2.5 H Aspartate Amino Transf (AST/SGOT) 51 H Alanine Aminotransferase (ALT/SGPT) 52 Alkaline Phosphatase 363 H Total Protein 6.6 Albumin 3.4 Globulin 3.20 Albumin/Globulin Ratio 1.06 Medications Medications Current Medications Ondansetron HCl (Zofran Inj) 4 mg Q6H PRN IV NAUSEA AND/OR VOMITING Last administered on 01/23/17 22:42; Admin Dose 4 MG; Start 01/19/17 at 09:00 Morphine Sulfate (morphine) 2 mg Q4H PRN IV PAIN LEVEL 7-10 Last administered on 01/24/17 11:26; Admin Dose 2 MG; Start 01/19/17 at 09:00 Ergocalciferol (Drisdol) 50,000 unit Q7D PO Last administered on 01/20/17 09: 33; Admin Dose 50,000 UNIT; Start 01/20/17 at 09:00 Folic Acid (Folic Acid) 2 mg DAILY PO Last administered on 01/24/17 08:11; Admin Dose 2 MG; Start 01/20/17 at 09:00 Hydrocortisone (Anusol-Hc Supp) 25 mg TID PRN [place] HEMORROID PAIN/ITCHING; Start 01/19/17 at 11:30 Propranolol HCl (Inderal) 10 mg TID PO Last administered on 01/24/17 08:11; Admin Dose 10 MG; Start 01/19/17 at 13:00 Senna/Docusate Sodium (Senokot-S) 2 tab HS PO Last administered on 01/23/17 20 :09; Admin Dose 2 TAB; Start 01/19/17 at 21:00 Methylprednisolone (Medrol) 32 mg DAILY PO Last administered on 01/24/17 08:11 ; Admin Dose 32 MG; Start 01/19/17 at 13:00 Lorazepam 0.5 mg 0.5 mg Q6H PRN PO ANXIETY; Start 01/20/17 at 17:00 Levofloxacin/ Dextrose (Levaquin 500mg/ D5W 100 ml (Pmx)) 100 ml @ 100 mls/hr Q24H IVPB Last administered on 01/23/17 15:11; Admin Dose 100 MLS/HR; Start at 15:00 Pantoprazole (Protonix Tab) 40 mg DAILY@06 PO Last administered on 01/24/17 06 :08; Admin Dose 40 MG; Start 01/23/17 at 06:00 DON BLAKE NP Jan 24, 2017 12:38
--- NOTE | 2017-01-24 12:51 | PN ---
Date/Time of Note Date/Time of Note DATE: 01/24/17 TIME: 12:48 Assessment/Plan VTE Prophylaxis VTE Prophylaxis Intervention: contraindicated Lines/Catheters IV [facility] Type (from [facility] Peripheral IV Urinary Cath still in place: No Assessment/Plan Chief Complaint/Hosp Course 1. Abdominal pain. Largely resolved. Etiology could be from underlying alcoholic hepatitis. CT scan of the abdomen and pelvis showed hepatosplenomegaly and small to moderate ascites with ill-defined consolidation in the anterior segment of the right upper lobe. 2. Sepsis. Most probably secondary to underlying pneumonia. Aspiration pneumonia versus healthcare associated. Cultures negative so far. On antibiotics as per infectious diseases. No evidence of any septic shock 3. Transaminitis with hyperbilirubinemia. Most probably secondary to underlying alcoholic liver disease. Hepatotoxic drugs will be avoided on this patient. 4. Alcoholic hepatitis. The patient will be continued on steroids as per recommendations of gastroenterology. Gastroenterology following. 5. Alcohol abuse. The patient denies any recent history of alcohol abuse. The patient will be reinforced to avoid using any alcohol. 6. Coagulopathy. Most probably secondary to underlying acute alcoholic liver disease. The patient will be monitored closely for any bleeding. 7. Fluids, electrolytes, and nutrition. Regular diet as tolerated. 8. DVT prophylaxis. Contraindicated. 9. Gastrointestinal prophylaxis. Proton pump inhibitors. 10. Plan. Continue antibiotics as per infectious diseases. Continue gastroenterology and infectious disease recommendations. Case discussed with Dr. Jaramillo. Problems: Subjective 24 Hr Interval Summary Free Text/Dictation Patient remains afebrile. Exam/Review of Systems Vital Signs Vitals Vital Signs Date Time Temp Pulse Resp B/P Pulse Ox O2 Delivery O2 Flow Rate FiO2 01/24/17 08:00 98.8 80 18 114/58 96 Intake and Output 01/23/17 01/23/17 01/24/17 15:00 23:00 07:00 Intake Total 860 ml 800 ml Output Total 1225 ml Balance -365 ml 800 ml Exam GENERAL: This is an obese male lying in bed in no apparent distress. HEENT: Head normocephalic and atraumatic. Eyes: Icteric sclerae. Conjunctivae clear. ENT: Nasal septum midline. Oral mucosa is dry. NECK: Supple. No JVD noticed. RESPIRATORY: Bilateral diminished breath sounds. No adventitious breath sounds heard. No use of accessory muscles of respiration. CARDIAC: Regular rate and S2. ABDOMEN: Diffuse tenderness specifically in the right upper quadrant, epigastric and left upper quadrant. No rebound tenderness or guarding. GENITOURINARY: Deferred. EXTREMITIES: No cyanosis, no clubbing. Bilateral lower extremity 1+ pitting edema. Peripheral pulses palpable. NEUROLOGIC: The patient is awake, alert and oriented. Cranial nerves are grossly intact. SKIN: Generalized icterus. Results Result Diagram: 01/24/17 0515 01/24/17 0515 Results 24 hrs Laboratory Tests Test 01/24/17 05:15 White Blood Count 51.2 #H Red Blood Count 3.23 L Hemoglobin 11.1 L Hematocrit 32.9 L Mean Corpuscular Volume 101.9 H Mean Corpuscular Hemoglobin 34.4 H Mean Corpuscular Hemoglobin Concent 33.7 Red Cell Distribution Width 18.5 H Platelet Count 256 Mean Platelet Volume 11.5 H Neutrophils % 81.0 H Band Neutrophils % 8.0 H Lymphocytes % 4.0 L Monocytes % 3.0 Eosinophils % 2.0 Basophils % Promyelocytes % 2.0 H Neutrophils # 41.5 H Lymphocytes # 2.0 Monocytes # 1.5 H Eosinophils # 1.0 H Basophils # Promyelocytes # 1.0 Prothrombin Time 19.4 H Prothrombin Time Ratio 1.5 INR International Normalized Ratio 1.62 Sodium Level 135 Potassium Level 3.7 Chloride Level 99 Carbon Dioxide Level 26 Anion Gap 14 Blood Urea Nitrogen 9 Creatinine 0.57 L Glucose Level 111 Calcium Level 8.4 Total Bilirubin 11.5 H Direct Bilirubin 9.00 H Indirect Bilirubin 2.5 H Aspartate Amino Transf (AST/SGOT) 51 H Alanine Aminotransferase (ALT/SGPT) 52 Alkaline Phosphatase 363 H Total Protein 6.6 Albumin 3.4 Globulin 3.20 Albumin/Globulin Ratio 1.06 Medications Medications Current Medications Ondansetron HCl (Zofran Inj) 4 mg Q6H PRN IV NAUSEA AND/OR VOMITING Last administered on 01/23/17 22:42; Admin Dose 4 MG; Start 01/19/17 at 09:00 Morphine Sulfate (morphine) 2 mg Q4H PRN IV PAIN LEVEL 7-10 Last administered on 01/24/17 11:26; Admin Dose 2 MG; Start 01/19/17 at 09:00 Ergocalciferol (Drisdol) 50,000 unit Q7D PO Last administered on 01/20/17 09: 33; Admin Dose 50,000 UNIT; Start 01/20/17 at 09:00 Folic Acid (Folic Acid) 2 mg DAILY PO Last administered on 01/24/17 08:11; Admin Dose 2 MG; Start 01/20/17 at 09:00 Hydrocortisone (Anusol-Hc Supp) 25 mg TID PRN [place] HEMORROID PAIN/ITCHING; Start 01/19/17 at 11:30 Propranolol HCl (Inderal) 10 mg TID PO Last administered on 01/24/17 08:11; Admin Dose 10 MG; Start 01/19/17 at 13:00 Senna/Docusate Sodium (Senokot-S) 2 tab HS PO Last administered on 01/23/17 20 :09; Admin Dose 2 TAB; Start 01/19/17 at 21:00 Methylprednisolone (Medrol) 32 mg DAILY PO Last administered on 01/24/17 08:11 ; Admin Dose 32 MG; Start 01/19/17 at 13:00 Lorazepam 0.5 mg 0.5 mg Q6H PRN PO ANXIETY; Start 01/20/17 at 17:00 Levofloxacin/ Dextrose (Levaquin 500mg/ D5W 100 ml (Pmx)) 100 ml @ 100 mls/hr Q24H IVPB Last administered on 01/23/17 15:11; Admin Dose 100 MLS/HR; Start at 15:00 Pantoprazole (Protonix Tab) 40 mg DAILY@06 PO Last administered on 01/24/17 06 :08; Admin Dose 40 MG; Start 01/23/17 at 06:00 BRENNON RASMUSSEN NP Jan 24, 2017 12:51
[2017-01-24] MEDS: LEVOFLOXACIN 500MG/D5W (PMX) 100 ML IVPB SCH (14:18)
[2017-01-24 20:00] VITALS: BP 110/55; RESP 20
[2017-01-24] MEDS: SENNA/DOCUSATE NA (8.6MG/50MG) TAB PO SCH (20:39)
[2017-01-25] MEDS: morphine 2 MG INJ IV PRN ×6 (00:14→20:50)
[2017-01-25] MEDS: PANTOPRAZOLE (EC) 40 MG TAB PO SCH (05:30)
[2017-01-25] MEDS: ONDANSETRON 4 MG INJ IV PRN ×2 (05:33→20:58)
[2017-01-25 05:42] LABS: ADD SCAN DIFF NO
[2017-01-25 05:54] LABS: ABNORMAL IP MESSAGE 1; EOSINOPHILS # 0.5 10^3/ul (0.0-0.5); HEMATOCRIT 32.3 % (42.0-52.0); HEMOGLOBIN 10.6 g/dl (14.0-18.0); LYMPHOCYTES # 1.4 10^3/ul (0.8-2.9); LYMPHOCYTES % 2.5 % (15.0-51.0); MEAN CORPUSCULAR HEMOGLOBIN 33.4 pg (29.0-33.0); MEAN CORPUSCULAR HGB CONC 32.8 g/dl (32.0-37.0); MEAN CORPUSCULAR VOLUME 101.9 fl (82.0-101.0); MEAN PLATELET VOLUME 11.6 fl (7.4-10.4); MONOCYTE # 1.3 10^3/ul (0.3-0.9); MONOCYTES % 2.3 % (0.0-11.0); NEUTROPHIL # 50.4 10^3/ul (1.6-7.5); PLATELET COUNT 251 10^3/UL (140-415); RED BLOOD COUNT 3.17 10^6/ul (4.70-6.10); RED CELL DISTRIBUTION WIDTH 18.8 % (11.5-14.5); WHITE BLOOD COUNT 55.5 10^3/ul (4.8-10.8)
[2017-01-25 06:05] LABS: MAGNESIUM 2.1 mg/dl (1.7-2.5); PHOSPHORUS 3.2 mg/dl (2.5-4.9)
[2017-01-25 06:19] LABS: NEUTROPHILS % 90.8 % (39.0-77.0)
[2017-01-25 06:20] LABS: ALBUMIN 3.2 g/dl (3.3-4.9); ALBUMIN/GLOBULIN RATIO 1.03; BILIRUBIN,DIRECT 9.1 mg/dl (0.00-0.20); BILIRUBIN,INDIRECT 2.4 mg/dl (0-1.1); BILIRUBIN,TOTAL 11.5 mg/dl (0.2-1.3); CALCIUM 8.2 mg/dl (8.4-10.2); CREATININE 0.5 mg/dl (0.61-1.24); POTASSIUM 3.7 mmol/L (3.5-5.1); TOTAL PROTEIN 6.3 g/dl (6.1-8.1)
[2017-01-25 08:09] VITALS: BP 114/61; RESP 18
[2017-01-25] MEDS: METHYLPREDNISOLONE 4 MG TAB PO SCH (08:58)
[2017-01-25] MEDS: FOLIC ACID 1 MG TAB PO SCH (08:58)
[2017-01-25] MEDS: PROPRANOLOL 10 MG TAB PO SCH ×3 (08:58→20:49)
--- NOTE | 2017-01-25 12:10 | PN ---
Date/Time of Note Date/Time of Note DATE: 01/25/17 TIME: 12:08 Assessment/Plan VTE Prophylaxis VTE Prophylaxis Intervention: contraindicated Lines/Catheters IV Catheter Type (from [facility] [place] Saline Lock Urinary Cath still in place: No Assessment/Plan Chief Complaint/Hosp Course 1. Abdominal pain. Largely resolved. Etiology could be from underlying alcoholic hepatitis. CT scan of the abdomen and pelvis showed hepatosplenomegaly and small to moderate ascites with ill-defined consolidation in the anterior segment of the right upper lobe. 2. Sepsis. Most probably secondary to underlying pneumonia. Aspiration pneumonia versus healthcare associated. Cultures negative so far. On antibiotics as per infectious diseases. No evidence of any septic shock. 3. Transaminitis with hyperbilirubinemia. Most probably secondary to underlying alcoholic liver disease. Hepatotoxic drugs will be avoided on this patient. 4. Alcoholic hepatitis. The patient will be continued on steroids as per recommendations of gastroenterology. Gastroenterology following. 5. Alcohol abuse. The patient denies any recent history of alcohol abuse. The patient will be reinforced to avoid using any alcohol. 6. Coagulopathy. Most probably secondary to underlying acute alcoholic liver disease. The patient will be monitored closely for any bleeding. 7. Fluids, electrolytes, and nutrition. Regular diet as tolerated. 8. DVT prophylaxis. Contraindicated. 9. Gastrointestinal prophylaxis. Proton pump inhibitors. 10. Plan. Continue antibiotics as per infectious diseases. Continue gastroenterology and infectious disease recommendations. Will call a hematology consult since the patient has persistent leukocytosis despite being on antibiotics. Case discussed with Dr. Jaramillo. Problems: Subjective 24 Hr Interval Summary Free Text/Dictation Patient still asking for pain medications for generalized body pain and abdominal pain. Remains afebrile. Exam/Review of Systems Vital Signs Vitals Vital Signs Date Time Temp Pulse Resp B/P Pulse Ox O2 Delivery O2 Flow Rate FiO2 01/25/17 08:09 98.4 87 18 114/61 96 Intake and Output 01/24/17 01/24/17 01/25/17 15:00 23:00 07:00 Intake Total 1660 ml 1980 ml Output Total 840 ml 2300 ml Balance 820 ml -320 ml Exam GENERAL: This is an obese male lying in bed in no apparent distress. HEENT: Head normocephalic and atraumatic. Eyes: Icteric sclerae. Conjunctivae clear. ENT: Nasal septum midline. Oral mucosa is dry. NECK: Supple. No JVD noticed. RESPIRATORY: Bilateral diminished breath sounds. No adventitious breath sounds heard. No use of accessory muscles of respiration. CARDIAC: Regular rate and S2. ABDOMEN: Diffuse tenderness specifically in the right upper quadrant, epigastric and left upper quadrant. No rebound tenderness or guarding. GENITOURINARY: Deferred. EXTREMITIES: No cyanosis, no clubbing. Bilateral lower extremity 1+ pitting edema. Peripheral pulses palpable. NEUROLOGIC: The patient is awake, alert and oriented. Cranial nerves are grossly intact. SKIN: Generalized icterus. Results Result Diagram: 01/25/17 0510 01/25/17 0510 Results 24 hrs Laboratory Tests Test 01/25/17 05:10 01/25/17 11:19 White Blood Count 55.5 H Red Blood Count 3.17 L Hemoglobin 10.6 L Hematocrit 32.3 L Mean Corpuscular Volume 101.9 H Mean Corpuscular Hemoglobin 33.4 H Mean Corpuscular Hemoglobin Concent 32.8 Red Cell Distribution Width 18.8 H Platelet Count 251 Mean Platelet Volume 11.6 H Neutrophils % 90.8 H Lymphocytes % 2.5 L Monocytes % 2.3 Eosinophils % 1.0 Basophils % 0.0 Nucleated Red Blood Cells % 0.0 Neutrophils # 50.4 H Lymphocytes # 1.4 Monocytes # 1.3 H Eosinophils # 0.5 Basophils # 0.0 Nucleated Red Blood Cells # 0.0 Sodium Level 132 L Potassium Level 3.7 Chloride Level 99 Carbon Dioxide Level 23 Anion Gap 14 Blood Urea Nitrogen 8 Creatinine 0.50 L Glucose Level 132 Calcium Level 8.2 L Phosphorus Level 3.2 Magnesium Level 2.1 Total Bilirubin 11.5 H Direct Bilirubin 9.10 H Indirect Bilirubin 2.4 H Aspartate Amino Transf (AST/SGOT) 45 Alanine Aminotransferase (ALT/SGPT) 40 Alkaline Phosphatase 341 H Total Protein 6.3 Albumin 3.2 L Globulin 3.10 Albumin/Globulin Ratio 1.03 Lab Scanned Report REFERENCE LAB Medications Medications Current Medications Ondansetron HCl (Zofran Inj) 4 mg Q6H PRN IV NAUSEA AND/OR VOMITING Last administered on 01/25/17 05:33; Admin Dose 4 MG; Start 01/19/17 at 09:00 Morphine Sulfate (morphine) 2 mg Q4H PRN IV PAIN LEVEL 7-10 Last administered on 01/25/17 08:58; Admin Dose 2 MG; Start 01/19/17 at 09:00 Ergocalciferol (Drisdol) 50,000 unit Q7D PO Last administered on 01/20/17 09: 33; Admin Dose 50,000 UNIT; Start 01/20/17 at 09:00 Folic Acid (Folic Acid) 2 mg DAILY PO Last administered on 01/25/17 08:58; Admin Dose 2 MG; Start 01/20/17 at 09:00 Hydrocortisone (Anusol-Hc Supp) 25 mg TID PRN [place] HEMORROID PAIN/ITCHING; Start 01/19/17 at 11:30 Propranolol HCl (Inderal) 10 mg TID PO Last administered on 01/25/17 08:58; Admin Dose 10 MG; Start 01/19/17 at 13:00 Senna/Docusate Sodium (Senokot-S) 2 tab HS PO Last administered on 01/24/17 20 :39; Admin Dose 2 TAB; Start 01/19/17 at 21:00 Methylprednisolone (Medrol) 32 mg DAILY PO Last administered on 01/25/17 08:58 ; Admin Dose 32 MG; Start 01/19/17 at 13:00 Lorazepam 0.5 mg 0.5 mg Q6H PRN PO ANXIETY; Start 01/20/17 at 17:00 Levofloxacin/ Dextrose (Levaquin 500mg/ D5W 100 ml (Pmx)) 100 ml @ 100 mls/hr Q24H IVPB Last administered on 01/24/17 14:18; Admin Dose 100 MLS/HR; Start at 15:00 Pantoprazole (Protonix Tab) 40 mg DAILY@06 PO Last administered on 01/25/17 05 :30; Admin Dose 40 MG; Start 01/23/17 at 06:00 BRENNON RASMUSSEN NP Jan 25, 2017 12:10
--- NOTE | 2017-01-25 12:49 | PN ---
Date/Time of Note Date/Time of Note DATE: 01/25/17 TIME: 12:46 Assessment/Plan VTE Prophylaxis VTE Prophylaxis Intervention: SCD's Lines/Catheters [facility] Saline Lock Urinary Cath still in place: No Assessment/Plan Assessment/Plan Acute alcoholic hepatitis, high discriminant function which denotes high mortality and benefit for steroid treatment Marked leukocytosis. Fairly common finding in patients with alcoholic hepatitis especially in treatment with steroids Chronic alcoholism Polysubstance abuse/poor compliance Edema bilateral T/C acute kidney injury Plan: Continue present management Trend liver enzymes/white blood cell count Advance diet as tolerated Abstinence critical to his recovery and lifespan Further orders will depend on clinical course Subjective 24 Hr Interval Summary Free Text/Dictation Course reviewed with nursing staff Patient requesting medication [id number] There is significant scrotal edema as well as peripheral edema White blood cell count significantly elevated, frequent finding in patients of alcoholic hepatitis and steroid treatment Hematology evaluation requested Exam/Review of Systems Vital Signs Vitals Vital Signs Date Time Temp Pulse Resp B/P Pulse Ox O2 Delivery O2 Flow Rate FiO2 01/25/17 08:09 98.4 87 18 114/61 96 Intake and Output 01/24/17 01/24/17 01/25/17 15:00 23:00 07:00 Intake Total 1660 ml 1980 ml Output Total 840 ml 2300 ml Balance 820 ml -320 ml Exam Constitutional: alert, oriented 3 Head: atraumatic, normocephalic Eyes: icteric ENMT: mucosa pink and moist Neck: non-tender, supple Respiratory: clear to auscultation, normal air movement Cardiovascular: nl pulses, regular rate and rhythm Gastrointestinal: bowel sounds, non-tender, soft Musculoskeletal: swelling (lower extremities) Extremities: pitting pedal edema (+3) 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: nl speech, nl strength Skin: nl turgor, No rash or lesions Results Result Diagram: 01/25/17 0510 01/25/17 0510 Results 24 hrs Laboratory Tests Test 01/25/17 05:10 01/25/17 11:19 White Blood Count 55.5 H Red Blood Count 3.17 L Hemoglobin 10.6 L Hematocrit 32.3 L Mean Corpuscular Volume 101.9 H Mean Corpuscular Hemoglobin 33.4 H Mean Corpuscular Hemoglobin Concent 32.8 Red Cell Distribution Width 18.8 H Platelet Count 251 Mean Platelet Volume 11.6 H Neutrophils % 90.8 H Lymphocytes % 2.5 L Monocytes % 2.3 Eosinophils % 1.0 Basophils % 0.0 Nucleated Red Blood Cells % 0.0 Neutrophils # 50.4 H Lymphocytes # 1.4 Monocytes # 1.3 H Eosinophils # 0.5 Basophils # 0.0 Nucleated Red Blood Cells # 0.0 Sodium Level 132 L Potassium Level 3.7 Chloride Level 99 Carbon Dioxide Level 23 Anion Gap 14 Blood Urea Nitrogen 8 Creatinine 0.50 L Glucose Level 132 Calcium Level 8.2 L Phosphorus Level 3.2 Magnesium Level 2.1 Total Bilirubin 11.5 H Direct Bilirubin 9.10 H Indirect Bilirubin 2.4 H Aspartate Amino Transf (AST/SGOT) 45 Alanine Aminotransferase (ALT/SGPT) 40 Alkaline Phosphatase 341 H Total Protein 6.3 Albumin 3.2 L Globulin 3.10 Albumin/Globulin Ratio 1.03 Lab Scanned Report REFERENCE LAB Medications Medications Current Medications Ondansetron HCl (Zofran Inj) 4 mg Q6H PRN IV NAUSEA AND/OR VOMITING Last administered on 01/25/17 05:33; Admin Dose 4 MG; Start 01/19/17 at 09:00 Morphine Sulfate (morphine) 2 mg Q4H PRN IV PAIN LEVEL 7-10 Last administered on 01/25/17 08:58; Admin Dose 2 MG; Start 01/19/17 at 09:00 Ergocalciferol (Drisdol) 50,000 unit Q7D PO Last administered on 01/20/17 09: 33; Admin Dose 50,000 UNIT; Start 01/20/17 at 09:00 Folic Acid (Folic Acid) 2 mg DAILY PO Last administered on 01/25/17 08:58; Admin Dose 2 MG; Start 01/20/17 at 09:00 Hydrocortisone (Anusol-Hc Supp) 25 mg TID PRN [place] HEMORROID PAIN/ITCHING; Start 01/19/17 at 11:30 Propranolol HCl (Inderal) 10 mg TID PO Last administered on 01/25/17 08:58; Admin Dose 10 MG; Start 01/19/17 at 13:00 Senna/Docusate Sodium (Senokot-S) 2 tab HS PO Last administered on 01/24/17 20 :39; Admin Dose 2 TAB; Start 01/19/17 at 21:00 Methylprednisolone (Medrol) 32 mg DAILY PO Last administered on 01/25/17 08:58 ; Admin Dose 32 MG; Start 01/19/17 at 13:00 Lorazepam 0.5 mg 0.5 mg Q6H PRN PO ANXIETY; Start 01/20/17 at 17:00 Levofloxacin/ Dextrose (Levaquin 500mg/ D5W 100 ml (Pmx)) 100 ml @ 100 mls/hr Q24H IVPB Last administered on 01/24/17 14:18; Admin Dose 100 MLS/HR; Start at 15:00 Pantoprazole (Protonix Tab) 40 mg DAILY@06 PO Last administered on 01/25/17 05 :30; Admin Dose 40 MG; Start 01/23/17 at 06:00 IFTIKHAR GONZALEZ MD Jan 25, 2017 12:49
--- NOTE | 2017-01-25 13:21 | CONS ---
Date/Time of Note Date/Time of Note DATE: 01/25/17 TIME: 13:18 Assessment/Plan Assessment/Plan Chief Complaint/Hosp Course SUBJECTIVE: No events overnight. The patient is awake. Looks comfortable. No fever. MICROBIOLOGY: Blood cultures remain negative. DIAGNOSTICS: CT of the abdomen and pelvis revealed ill-defined consolidation in the anterior segment right upper lobe, no evidence of obstructive uropathy, small to moderate ascites and hepatosplenomegaly. ANTIMICROBIALS: Levaquin PHYSICAL EXAMINATION: GENERAL: This is a well-developed, ill-appearing, middle-aged man who is awake, in no distress. HEENT: Head atraumatic, normocephalic. Sclerae anicteric. Buccal mucosa dry. NECK: Supple. CHEST: Rise symmetrical. Breath sounds diminished. HEART: S1, S2. ABDOMEN: Soft, bowel tones present. EXTREMITIES: No cyanosis. Bilateral lower extremities edema. ASSESSMENT: 1. Leukocytosis, ongoing. The patient is on steroids and has a history of leukocytosis on previous admissions. 2. Pneumonia. 3. History of alcoholic pancreatitis. 4. Chronic alcoholism and polysubstance abuse. 6. Acute alcoholic hepatitis. 7. Scrotal edema PLAN: Clinically stable. Continue present ABX. Scrotal elevation. Follow gastroenterology recommendations. Pain management. Monitor Labs. DW staff Problems: Consultation Date/Type/Reason Admit Date/Time Jan 19, 2017 at 06:11 Initial Consult Date Type of Consultation: id Exam/Review of Systems Vital Signs Vitals Vital Signs Date Time Temp Pulse Resp B/P Pulse Ox O2 Delivery O2 Flow Rate FiO2 01/25/17 08:09 98.4 87 18 114/61 96 Intake and Output 01/24/17 01/24/17 01/25/17 15:00 23:00 07:00 Intake Total 1660 ml 1980 ml Output Total 840 ml 2300 ml Balance 820 ml -320 ml Results Result Diagram: 01/25/17 0510 01/25/17 0510 Results 24 hrs Laboratory Tests Test 01/25/17 05:10 01/25/17 11:19 White Blood Count 55.5 H Red Blood Count 3.17 L Hemoglobin 10.6 L Hematocrit 32.3 L Mean Corpuscular Volume 101.9 H Mean Corpuscular Hemoglobin 33.4 H Mean Corpuscular Hemoglobin Concent 32.8 Red Cell Distribution Width 18.8 H Platelet Count 251 Mean Platelet Volume 11.6 H Neutrophils % 90.8 H Lymphocytes % 2.5 L Monocytes % 2.3 Eosinophils % 1.0 Basophils % 0.0 Nucleated Red Blood Cells % 0.0 Neutrophils # 50.4 H Lymphocytes # 1.4 Monocytes # 1.3 H Eosinophils # 0.5 Basophils # 0.0 Nucleated Red Blood Cells # 0.0 Sodium Level 132 L Potassium Level 3.7 Chloride Level 99 Carbon Dioxide Level 23 Anion Gap 14 Blood Urea Nitrogen 8 Creatinine 0.50 L Glucose Level 132 Calcium Level 8.2 L Phosphorus Level 3.2 Magnesium Level 2.1 Total Bilirubin 11.5 H Direct Bilirubin 9.10 H Indirect Bilirubin 2.4 H Aspartate Amino Transf (AST/SGOT) 45 Alanine Aminotransferase (ALT/SGPT) 40 Alkaline Phosphatase 341 H Total Protein 6.3 Albumin 3.2 L Globulin 3.10 Albumin/Globulin Ratio 1.03 Lab Scanned Report REFERENCE LAB Medications Medications Current Medications Ondansetron HCl (Zofran Inj) 4 mg Q6H PRN IV NAUSEA AND/OR VOMITING Last administered on 01/25/17 05:33; Admin Dose 4 MG; Start 01/19/17 at 09:00 Morphine Sulfate (morphine) 2 mg Q4H PRN IV PAIN LEVEL 7-10 Last administered on 01/25/17 12:43; Admin Dose 2 MG; Start 01/19/17 at 09:00 Ergocalciferol (Drisdol) 50,000 unit Q7D PO Last administered on 01/20/17 09: 33; Admin Dose 50,000 UNIT; Start 01/20/17 at 09:00 Folic Acid (Folic Acid) 2 mg DAILY PO Last administered on 01/25/17 08:58; Admin Dose 2 MG; Start 01/20/17 at 09:00 Hydrocortisone (Anusol-Hc Supp) 25 mg TID PRN [place] HEMORROID PAIN/ITCHING; Start 01/19/17 at 11:30 Propranolol HCl (Inderal) 10 mg TID PO Last administered on 01/25/17 12:42; Admin Dose 10 MG; Start 01/19/17 at 13:00 Senna/Docusate Sodium (Senokot-S) 2 tab HS PO Last administered on 01/24/17 20 :39; Admin Dose 2 TAB; Start 01/19/17 at 21:00 Methylprednisolone (Medrol) 32 mg DAILY PO Last administered on 01/25/17 08:58 ; Admin Dose 32 MG; Start 01/19/17 at 13:00 Lorazepam 0.5 mg 0.5 mg Q6H PRN PO ANXIETY; Start 01/20/17 at 17:00 Levofloxacin/ Dextrose (Levaquin 500mg/ D5W 100 ml (Pmx)) 100 ml @ 100 mls/hr Q24H IVPB Last administered on 01/24/17 14:18; Admin Dose 100 MLS/HR; Start at 15:00 Pantoprazole (Protonix Tab) 40 mg DAILY@06 PO Last administered on 01/25/17 05 :30; Admin Dose 40 MG; Start 01/23/17 at 06:00 KENYA SOLORIO NP Jan 25, 2017 13:21
--- NOTE | 2017-01-25 15:11 | CONS ---
Date/Time of Note Date/Time of Note DATE: 01/25/17 TIME: 15:04 Assessment/Plan Assessment/Plan Problems: (1) Leukocytosis Status: Acute Comment: WBC 40-50s with severe alcoholic hepatitis and pancreatitis with steroid rx which can all cause the high wbc but because of the high # and diff showing myelocytes, promyelocytes and metamyelocytes will evaluate for myeloproliferative d/o with epo screen and peripheral blood flow cytometry. If epo level very low then consider JABARI 2 mutation and Ph chromosome check for CML> Also check LDH,. Qualifiers: Qualified Code: D72.823 - Leukemoid reaction (2) Alcoholic liver failure Comment: this is causing macrocytic anemia with dysmaturation of bone marrow. Consultation Date/Type/Reason Admit Date/Time Jan 19, 2017 at 06:11 Date of Consultation: Jan 25, 2017 Type of Consultation: Heme Reason for Consultation leukocytosis Referring Provider: BRENNON RASMUSSEN NP Hx of Present Illness Patient with severe alcoholic hepatitis and pancreatitis now on steroids has chronic leukocytosis and heme consult requested. No night sweats but has lower back pain requiring pain meds. he also has anasarca and edema with scrotal edema evaluated with CT and scrotal us which showed HSM but no other organomegaly or LAD or any concerns for malignancy. Constitutional: no complaints ENT: no complaints Respiratory: no complaints Gastrointestinal: pain Musculoskeletal: back pain Psychological: nl mood/affect Past Surgical History Past Surgical Hx: no surgical history, other Social History Alcohol Use: heavy Smoking Status: Current every day smoker Exam/Review of Systems Vital Signs Vitals Vital Signs Date Time Temp Pulse Resp B/P Pulse Ox O2 Delivery O2 Flow Rate FiO2 01/25/17 08:09 98.4 87 18 114/61 96 Intake and Output 01/24/17 01/24/17 01/25/17 15:00 23:00 07:00 Intake Total 1660 ml 1980 ml Output Total 840 ml 2300 ml Balance 820 ml -320 ml Exam icterus and pallor, poor dentition scrotal edema LE b/l edema Constitutional: alert, oriented Psych: nl mood/affect Eyes: nl conjunctiva Neck: supple Respiratory: normal air movement Cardiovascular: regular rate and rhythm Gastrointestinal: soft Results Result Diagram: 01/25/17 0510 01/25/17 0510 Results 24 hrs Laboratory Tests Test 01/25/17 05:10 01/25/17 11:19 White Blood Count 55.5 H Red Blood Count 3.17 L Hemoglobin 10.6 L Hematocrit 32.3 L Mean Corpuscular Volume 101.9 H Mean Corpuscular Hemoglobin 33.4 H Mean Corpuscular Hemoglobin Concent 32.8 Red Cell Distribution Width 18.8 H Platelet Count 251 Mean Platelet Volume 11.6 H Neutrophils % 90.8 H Lymphocytes % 2.5 L Monocytes % 2.3 Eosinophils % 1.0 Basophils % 0.0 Nucleated Red Blood Cells % 0.0 Neutrophils # 50.4 H Lymphocytes # 1.4 Monocytes # 1.3 H Eosinophils # 0.5 Basophils # 0.0 Nucleated Red Blood Cells # 0.0 Sodium Level 132 L Potassium Level 3.7 Chloride Level 99 Carbon Dioxide Level 23 Anion Gap 14 Blood Urea Nitrogen 8 Creatinine 0.50 L Glucose Level 132 Calcium Level 8.2 L Phosphorus Level 3.2 Magnesium Level 2.1 Total Bilirubin 11.5 H Direct Bilirubin 9.10 H Indirect Bilirubin 2.4 H Aspartate Amino Transf (AST/SGOT) 45 Alanine Aminotransferase (ALT/SGPT) 40 Alkaline Phosphatase 341 H Total Protein 6.3 Albumin 3.2 L Globulin 3.10 Albumin/Globulin Ratio 1.03 Lab Scanned Report REFERENCE LAB Medications Medications Current Medications Ondansetron HCl (Zofran Inj) 4 mg Q6H PRN IV NAUSEA AND/OR VOMITING Last administered on 01/25/17 05:33; Admin Dose 4 MG; Start 01/19/17 at 09:00 Morphine Sulfate (morphine) 2 mg Q4H PRN IV PAIN LEVEL 7-10 Last administered on 01/25/17 12:43; Admin Dose 2 MG; Start 01/19/17 at 09:00 Ergocalciferol (Drisdol) 50,000 unit Q7D PO Last administered on 01/20/17 09: 33; Admin Dose 50,000 UNIT; Start 01/20/17 at 09:00 Folic Acid (Folic Acid) 2 mg DAILY PO Last administered on 01/25/17 08:58; Admin Dose 2 MG; Start 01/20/17 at 09:00 Hydrocortisone (Anusol-Hc Supp) 25 mg TID PRN [place] HEMORROID PAIN/ITCHING; Start 01/19/17 at 11:30 Propranolol HCl (Inderal) 10 mg TID PO Last administered on 01/25/17 12:42; Admin Dose 10 MG; Start 01/19/17 at 13:00 Senna/Docusate Sodium (Senokot-S) 2 tab HS PO Last administered on 01/24/17 20 :39; Admin Dose 2 TAB; Start 01/19/17 at 21:00 Methylprednisolone (Medrol) 32 mg DAILY PO Last administered on 01/25/17 08:58 ; Admin Dose 32 MG; Start 01/19/17 at 13:00 Lorazepam 0.5 mg 0.5 mg Q6H PRN PO ANXIETY; Start 01/20/17 at 17:00 Levofloxacin/ Dextrose (Levaquin 500mg/ D5W 100 ml (Pmx)) 100 ml @ 100 mls/hr Q24H IVPB Last administered on 01/24/17 14:18; Admin Dose 100 MLS/HR; Start at 15:00 Pantoprazole (Protonix Tab) 40 mg DAILY@06 PO Last administered on 01/25/17 05 :30; Admin Dose 40 MG; Start 01/23/17 at 06:00 BENJAMIN FLEMING MD Jan 25, 2017 15:11
[2017-01-25] MEDS: LEVOFLOXACIN 500MG/D5W (PMX) 100 ML IVPB SCH (15:46)
[2017-01-25 20:14] VITALS: BP 119/59; RESP 18
[2017-01-25] MEDS: SENNA/DOCUSATE NA (8.6MG/50MG) TAB PO SCH (20:49)
[2017-01-26] MEDS: morphine 2 MG INJ IV PRN ×3 (00:47→10:53)
[2017-01-26] MEDS: PANTOPRAZOLE (EC) 40 MG TAB PO SCH (05:23)
[2017-01-26 07:14] LABS: ADD SCAN DIFF NO
[2017-01-26 07:26] LABS: ABNORMAL IP MESSAGE 1; HEMATOCRIT 32.5 % (42.0-52.0); HEMOGLOBIN 10.9 g/dl (14.0-18.0); MEAN CORPUSCULAR HEMOGLOBIN 34.3 pg (29.0-33.0); MEAN CORPUSCULAR HGB CONC 33.5 g/dl (32.0-37.0); MEAN CORPUSCULAR VOLUME 102.2 fl (82.0-101.0); MEAN PLATELET VOLUME 11.4 fl (7.4-10.4); PLATELET COUNT 250 10^3/UL (140-415); RED BLOOD COUNT 3.18 10^6/ul (4.70-6.10); RED CELL DISTRIBUTION WIDTH 18.6 % (11.5-14.5); WHITE BLOOD COUNT 56.1 10^3/ul (4.8-10.8)
[2017-01-26 07:54] LABS: PHOSPHORUS 4.1 mg/dl (2.5-4.9)
[2017-01-26 07:55] LABS: ALBUMIN 3.1 g/dl (3.3-4.9); BILIRUBIN,DIRECT 9.2 mg/dl (0.00-0.20); BILIRUBIN,INDIRECT 2.5 mg/dl (0-1.1); BILIRUBIN,TOTAL 11.7 mg/dl (0.2-1.3); CALCIUM 8.3 mg/dl (8.4-10.2); CREATININE 0.48 mg/dl (0.61-1.24); POTASSIUM 3.8 mmol/L (3.5-5.1); TOTAL PROTEIN 6.2 g/dl (6.1-8.1)
[2017-01-26 07:57] VITALS: BP 113/57; RESP 16
[2017-01-26] MEDS: PROPRANOLOL 10 MG TAB PO SCH ×3 (10:48→20:34)
[2017-01-26] MEDS: FOLIC ACID 1 MG TAB PO SCH (10:48)
[2017-01-26] MEDS: METHYLPREDNISOLONE 4 MG TAB PO SCH (10:49)
[2017-01-26 11:00] LABS: LYMPHOCYTES # 1.1 10^3/ul (0.8-2.9); MONOCYTE # 2.2 10^3/ul (0.3-0.9); MYELOCYTES # 0.6
--- NOTE | 2017-01-26 11:03 | PN ---
Date/Time of Note Date/Time of Note DATE: 01/26/17 TIME: 11:00 Assessment/Plan VTE Prophylaxis VTE Prophylaxis Intervention: contraindicated Lines/Catheters [facility] Saline Lock Urinary Cath still in place: No Assessment/Plan Chief Complaint/Hosp Course 1. Abdominal pain. Etiology could be from underlying alcoholic hepatitis. CT scan of the abdomen and pelvis showed hepatosplenomegaly and small to moderate ascites with ill-defined consolidation in the anterior segment of the right upper lobe. 2. Sepsis. Most probably secondary to underlying pneumonia. Aspiration pneumonia versus healthcare associated. Cultures negative so far. On antibiotics as per infectious diseases. No evidence of any septic shock. 3. Transaminitis with hyperbilirubinemia. Most probably secondary to underlying alcoholic liver disease. Hepatotoxic drugs will be avoided on this patient. 4. Alcoholic hepatitis. The patient will be continued on steroids as per recommendations of gastroenterology. Gastroenterology following. 5. Alcohol abuse. The patient denies any recent history of alcohol abuse. The patient will be reinforced to avoid using any alcohol. 6. Coagulopathy. Most probably secondary to underlying acute alcoholic liver disease. The patient will be monitored closely for any bleeding. 7. Persistent leukocytosis. Hematology evaluation ongoing. 8. Fluids, electrolytes, and nutrition. Regular diet as tolerated. 9. DVT prophylaxis. Contraindicated. 10. Gastrointestinal prophylaxis. Proton pump inhibitors. 11. Plan. Continue antibiotics as per infectious diseases. Continue gastroenterology and infectious disease recommendations. Await further hematology recommendations. Case discussed with Dr. Pringle. Problems: Subjective 24 Hr Interval Summary Free Text/Dictation Asking for pain medications [id number]. Exam/Review of Systems Vital Signs Vitals Vital Signs Date Time Temp Pulse Resp B/P Pulse Ox O2 Delivery O2 Flow Rate FiO2 01/26/17 07:57 98.3 91 16 113/57 99 Intake and Output 01/25/17 01/25/17 01/26/17 15:00 23:00 07:00 Intake Total 1480 ml 1200 ml Balance 1480 ml 1200 ml Exam GENERAL: This is an obese male lying in bed in no apparent distress. HEENT: Head normocephalic and atraumatic. Eyes: Icteric sclerae. Conjunctivae clear. ENT: Nasal septum midline. Oral mucosa is dry. NECK: Supple. No JVD noticed. RESPIRATORY: Bilateral diminished breath sounds. No adventitious breath sounds heard. No use of accessory muscles of respiration. CARDIAC: Regular rate and S2. ABDOMEN: Diffuse tenderness specifically in the right upper quadrant, epigastric and left upper quadrant. No rebound tenderness or guarding. GENITOURINARY: Deferred. EXTREMITIES: No cyanosis, no clubbing. Bilateral lower extremity 1+ pitting edema. Peripheral pulses palpable. NEUROLOGIC: The patient is awake, alert and oriented. Cranial nerves are grossly intact. SKIN: Generalized icterus. Results Result Diagram: 01/26/17 0541 01/26/17 0540 Results 24 hrs Laboratory Tests Test 01/25/17 11:19 01/26/17 05:40 01/26/17 05:41 Lab Scanned Report REFERENCE LAB Sodium Level 131 L Potassium Level 3.8 Chloride Level 99 Carbon Dioxide Level 24 Anion Gap 12 Blood Urea Nitrogen 10 Creatinine 0.48 L Glucose Level 75 # Calcium Level 8.3 L Phosphorus Level 4.1 Magnesium Level 2.0 Total Bilirubin 11.7 H Direct Bilirubin 9.20 H Indirect Bilirubin 2.5 H Aspartate Amino Transf (AST/SGOT) 46 Alanine Aminotransferase (ALT/SGPT) 45 Alkaline Phosphatase 331 H Lactate Dehydrogenase 400 Total Protein 6.2 Albumin 3.1 L Globulin 3.10 Albumin/Globulin Ratio 1.00 White Blood Count 56.1 H Red Blood Count 3.18 L Hemoglobin 10.9 L Hematocrit 32.5 L Mean Corpuscular Volume 102.2 H Mean Corpuscular Hemoglobin 34.3 H Mean Corpuscular Hemoglobin Concent 33.5 Red Cell Distribution Width 18.6 H Platelet Count 250 Mean Platelet Volume 11.4 H Neutrophils % Eosinophils % Basophils % Neutrophils # Eosinophils # Basophils # Medications Medications Current Medications Ondansetron HCl (Zofran Inj) 4 mg Q6H PRN IV NAUSEA AND/OR VOMITING Last administered on 01/25/17 20:58; Admin Dose 4 MG; Start 01/19/17 at 09:00 Morphine Sulfate (morphine) 2 mg Q4H PRN IV PAIN LEVEL 7-10 Last administered on 01/26/17 10:53; Admin Dose 2 MG; Start 01/19/17 at 09:00 Ergocalciferol (Drisdol) 50,000 unit Q7D PO Last administered on 01/20/17 09: 33; Admin Dose 50,000 UNIT; Start 01/20/17 at 09:00 Folic Acid (Folic Acid) 2 mg DAILY PO Last administered on 01/26/17 10:48; Admin Dose 2 MG; Start 01/20/17 at 09:00 Hydrocortisone (Anusol-Hc Supp) 25 mg TID PRN [place] HEMORROID PAIN/ITCHING; Start 01/19/17 at 11:30 Propranolol HCl (Inderal) 10 mg TID PO Last administered on 01/26/17 10:48; Admin Dose 10 MG; Start 01/19/17 at 13:00 Senna/Docusate Sodium (Senokot-S) 2 tab HS PO Last administered on 01/25/17 20 :49; Admin Dose 2 TAB; Start 01/19/17 at 21:00 Methylprednisolone (Medrol) 32 mg DAILY PO Last administered on 01/26/17 10:49 ; Admin Dose 32 MG; Start 01/19/17 at 13:00 Lorazepam 0.5 mg 0.5 mg Q6H PRN PO ANXIETY; Start 01/20/17 at 17:00 Levofloxacin/ Dextrose (Levaquin 500mg/ D5W 100 ml (Pmx)) 100 ml @ 100 mls/hr Q24H IVPB Last administered on 01/25/17 15:46; Admin Dose 100 MLS/HR; Start at 15:00 Pantoprazole (Protonix Tab) 40 mg DAILY@06 PO Last administered on 01/26/17 05 :23; Admin Dose 40 MG; Start 01/23/17 at 06:00 BRENNON RASMUSSEN NP Jan 26, 2017 11:02
[2017-01-26 12:58] VITALS: BP 107/60; PULSE 63
--- NOTE | 2017-01-26 15:09 | PN ---
Date/Time of Note Date/Time of Note DATE: 01/26/17 TIME: 15:07 Assessment/Plan VTE Prophylaxis VTE Prophylaxis Intervention: ambulation Lines/Catheters [facility] Saline Lock Urinary Cath still in place: No Assessment/Plan Assessment/Plan Acute alcoholic hepatitis, high discriminant function which denotes high mortality and benefit for steroid treatment Marked leukocytosis. Fairly common finding in patients with alcoholic hepatitis especially in treatment with steroids Chronic alcoholism Polysubstance abuse/poor compliance Edema bilateral T/C acute kidney injury Plan: Continue present management Trend liver enzymes/white blood cell count Advance diet as tolerated Abstinence critical to his recovery and lifespan Case was discussed with Dr Ospina Further orders will depend on clinical course Subjective 24 Hr Interval Summary Free Text/Dictation * Course reviewed with RN * Patient seen and examined * No complaints Exam/Review of Systems Vital Signs Vitals Vital Signs Date Time Temp Pulse Resp B/P Pulse Ox O2 Delivery O2 Flow Rate FiO2 01/26/17 12:58 63 107/60 01/26/17 07:57 98.3 16 99 Intake and Output 01/25/17 01/25/17 01/26/17 15:00 23:00 07:00 Intake Total 1480 ml 1200 ml Balance 1480 ml 1200 ml Exam Constitutional: alert, oriented Eyes: icteric Neck: non-tender, supple Respiratory: clear to auscultation, normal air movement Cardiovascular: nl pulses, regular rate and rhythm Gastrointestinal: nl liver, spleen, non-tender, soft, No rebound or guarding Musculoskeletal: nl extremities to inspection, nl gait and stance Extremities: normal pulses 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: nl mental status Skin: nl turgor, No rash or lesions Lymph: enlarged Results Result Diagram: 01/26/17 0541 01/26/17 0540 Results 24 hrs Laboratory Tests Test 01/26/17 05:40 01/26/17 05:41 Sodium Level 131 L Potassium Level 3.8 Chloride Level 99 Carbon Dioxide Level 24 Anion Gap 12 Blood Urea Nitrogen 10 Creatinine 0.48 L Glucose Level 75 # Calcium Level 8.3 L Phosphorus Level 4.1 Magnesium Level 2.0 Total Bilirubin 11.7 H Direct Bilirubin 9.20 H Indirect Bilirubin 2.5 H Aspartate Amino Transf (AST/SGOT) 46 Alanine Aminotransferase (ALT/SGPT) 45 Alkaline Phosphatase 331 H Lactate Dehydrogenase 400 Total Protein 6.2 Albumin 3.1 L Globulin 3.10 Albumin/Globulin Ratio 1.00 White Blood Count 56.1 H Red Blood Count 3.18 L Hemoglobin 10.9 L Hematocrit 32.5 L Mean Corpuscular Volume 102.2 H Mean Corpuscular Hemoglobin 34.3 H Mean Corpuscular Hemoglobin Concent 33.5 Red Cell Distribution Width 18.6 H Platelet Count 250 Mean Platelet Volume 11.4 H Neutrophils % 82.0 H Band Neutrophils % 9.0 H Lymphocytes % 2.0 L Monocytes % 4.0 Eosinophils % Basophils % Metamyelocytes % 2.0 H Myelocytes % 1.0 H Neutrophils # 46.0 H Lymphocytes # 1.1 Monocytes # 2.2 H Eosinophils # Basophils # Metamyelocytes # 1.1 Myelocytes # 0.6 Differential Comment MANUAL DIFF Medications Medications Current Medications Ondansetron HCl (Zofran Inj) 4 mg Q6H PRN IV NAUSEA AND/OR VOMITING Last administered on 01/25/17 20:58; Admin Dose 4 MG; Start 01/19/17 at 09:00 Ergocalciferol (Drisdol) 50,000 unit Q7D PO Last administered on 01/20/17 09: 33; Admin Dose 50,000 UNIT; Start 01/20/17 at 09:00 Folic Acid (Folic Acid) 2 mg DAILY PO Last administered on 01/26/17 10:48; Admin Dose 2 MG; Start 01/20/17 at 09:00 Hydrocortisone (Anusol-Hc Supp) 25 mg TID PRN [place] HEMORROID PAIN/ITCHING; Start 01/19/17 at 11:30 Propranolol HCl (Inderal) 10 mg TID PO Last administered on 01/26/17 12:58; Admin Dose 10 MG; Start 01/19/17 at 13:00 Senna/Docusate Sodium (Senokot-S) 2 tab HS PO Last administered on 01/25/17 20 :49; Admin Dose 2 TAB; Start 01/19/17 at 21:00 Methylprednisolone (Medrol) 32 mg DAILY PO Last administered on 01/26/17 10:49 ; Admin Dose 32 MG; Start 01/19/17 at 13:00 Lorazepam 0.5 mg 0.5 mg Q6H PRN PO ANXIETY; Start 01/20/17 at 17:00 Levofloxacin/ Dextrose (Levaquin 500mg/ D5W 100 ml (Pmx)) 100 ml @ 100 mls/hr Q24H IVPB Last administered on 01/25/17 15:46; Admin Dose 100 MLS/HR; Start at 15:00 Pantoprazole (Protonix Tab) 40 mg DAILY@06 PO Last administered on 01/26/17 05 :23; Admin Dose 40 MG; Start 01/23/17 at 06:00 Morphine Sulfate (morphine) 3 mg Q4H PRN IV PAIN LEVEL 7-10; Start 01/26/17 at 13:00 CROW ALEJANDRO NP Jan 26, 2017 15:09
[2017-01-26] MEDS: LEVOFLOXACIN 500MG/D5W (PMX) 100 ML IVPB SCH (15:24)
[2017-01-26] MEDS: morphine 4 MG/ML VIAL IV PRN ×2 (15:24→19:41)
--- NOTE | 2017-01-26 15:55 | CONS ---
Date/Time of Note Date/Time of Note DATE: 01/26/17 TIME: 15:45 Assessment/Plan Assessment/Plan Chief Complaint/Hosp Course Patient with severe alcoholic hepatitis and pancreatitis now on steroids who presents with chronic leukocytosis #Leukocytosis - pt has been admitted multiple times for alcoholic hepatitis and has presented with severe leukocytosis during those time. His current leukocytosis is likely secondary to the steroids and alcoholic hepatitis. Peripheral smear was reviewed and did not show evidence of acute leukemia or obvious myeloproliferative disorder -Flow Cytometry , Hal 2 mutation analysis and BCR ABL were all ordered #Alcoholic Hepatitis -this is causing macrocytic anemia with dysmaturation of bone marrow. -continue supportive care per primary team Problems: (1) Leukocytosis Status: Acute Qualifiers: Leukocytosis type: leukemoid reaction Qualified Code: D72.823 - Leukemoid reaction (2) Alcoholic liver failure Status: Chronic Consultation Date/Type/Reason Admit Date/Time Jan 19, 2017 at 06:11 Initial Consult Date 01/25/17 Type of Consultation: Hematology Reason for Consultation leukocytosis Referring Provider: BRENNON RASMUSSEN GLA[employer] GR[employer]ER 24 HR Interval Summary Free Text/Dictation pt states he feels better today. states LE edema and abdominal distension has improved Exam/Review of Systems Vital Signs Vitals Vital Signs Date Time Temp Pulse Resp B/P Pulse Ox O2 Delivery O2 Flow Rate FiO2 01/26/17 12:58 63 107/60 01/26/17 07:57 98.3 16 99 Intake and Output 01/25/17 01/25/17 01/26/17 15:00 23:00 07:00 Intake Total 1480 ml 1200 ml Balance 1480 ml 1200 ml Exam Constitutional: alert, oriented Psych: no complaints Head: normocephalic Eyes: icteric ENMT: nl external ears & nose Neck: non-tender, supple Respiratory: clear to auscultation Cardiovascular: nl pulses, regular rate and rhythm Gastrointestinal: soft Musculoskeletal: nl extremities to inspection Extremities: normal pulses Results Result Diagram: 01/26/17 0541 01/26/17 0540 Results 24 hrs Laboratory Tests Test 01/26/17 05:40 01/26/17 05:41 Sodium Level 131 L Potassium Level 3.8 Chloride Level 99 Carbon Dioxide Level 24 Anion Gap 12 Blood Urea Nitrogen 10 Creatinine 0.48 L Glucose Level 75 # Calcium Level 8.3 L Phosphorus Level 4.1 Magnesium Level 2.0 Total Bilirubin 11.7 H Direct Bilirubin 9.20 H Indirect Bilirubin 2.5 H Aspartate Amino Transf (AST/SGOT) 46 Alanine Aminotransferase (ALT/SGPT) 45 Alkaline Phosphatase 331 H Lactate Dehydrogenase 400 Total Protein 6.2 Albumin 3.1 L Globulin 3.10 Albumin/Globulin Ratio 1.00 White Blood Count 56.1 H Red Blood Count 3.18 L Hemoglobin 10.9 L Hematocrit 32.5 L Mean Corpuscular Volume 102.2 H Mean Corpuscular Hemoglobin 34.3 H Mean Corpuscular Hemoglobin Concent 33.5 Red Cell Distribution Width 18.6 H Platelet Count 250 Mean Platelet Volume 11.4 H Neutrophils % 82.0 H Band Neutrophils % 9.0 H Lymphocytes % 2.0 L Monocytes % 4.0 Eosinophils % Basophils % Metamyelocytes % 2.0 H Myelocytes % 1.0 H Neutrophils # 46.0 H Lymphocytes # 1.1 Monocytes # 2.2 H Eosinophils # Basophils # Metamyelocytes # 1.1 Myelocytes # 0.6 Differential Comment MANUAL DIFF Medications Medications Current Medications Ondansetron HCl (Zofran Inj) 4 mg Q6H PRN IV NAUSEA AND/OR VOMITING Last administered on 01/25/17 20:58; Admin Dose 4 MG; Start 01/19/17 at 09:00 Ergocalciferol (Drisdol) 50,000 unit Q7D PO Last administered on 01/20/17 09: 33; Admin Dose 50,000 UNIT; Start 01/20/17 at 09:00 Folic Acid (Folic Acid) 2 mg DAILY PO Last administered on 01/26/17 10:48; Admin Dose 2 MG; Start 01/20/17 at 09:00 Hydrocortisone (Anusol-Hc Supp) 25 mg TID PRN [place] HEMORROID PAIN/ITCHING; Start 01/19/17 at 11:30 Propranolol HCl (Inderal) 10 mg TID PO Last administered on 01/26/17 12:58; Admin Dose 10 MG; Start 01/19/17 at 13:00 Senna/Docusate Sodium (Senokot-S) 2 tab HS PO Last administered on 01/25/17 20 :49; Admin Dose 2 TAB; Start 01/19/17 at 21:00 Methylprednisolone (Medrol) 32 mg DAILY PO Last administered on 01/26/17 10:49 ; Admin Dose 32 MG; Start 01/19/17 at 13:00 Lorazepam 0.5 mg 0.5 mg Q6H PRN PO ANXIETY; Start 01/20/17 at 17:00 Levofloxacin/ Dextrose (Levaquin 500mg/ D5W 100 ml (Pmx)) 100 ml @ 100 mls/hr Q24H IVPB Last administered on 01/26/17 15:24; Admin Dose 100 MLS/HR; Start at 15:00 Pantoprazole (Protonix Tab) 40 mg DAILY@06 PO Last administered on 01/26/17 05 :23; Admin Dose 40 MG; Start 01/23/17 at 06:00 Morphine Sulfate (morphine) 3 mg Q4H PRN IV PAIN LEVEL 7-10 Last administered on 01/26/17 15:24; Admin Dose 3 MG; Start 01/26/17 at 13:00 HARSHIL ALMONTE M.D. Jan 26, 2017 15:55
[2017-01-26] MEDS: ONDANSETRON 4 MG INJ IV PRN (19:40)
[2017-01-26] MEDS: SENNA/DOCUSATE NA (8.6MG/50MG) TAB PO SCH (20:30)
--- NOTE | 2017-01-26 21:26 | CONS ---
Date/Time of Note Date/Time of Note DATE: 01/26/17 TIME: 21:25 Assessment/Plan Assessment/Plan Chief Complaint/Hosp Course SUBJECTIVE: Alert, feels better, no fevers MICROBIOLOGY: Blood cultures remain negative. DIAGNOSTICS: CT of the abdomen and pelvis revealed ill-defined consolidation in the anterior segment right upper lobe, no evidence of obstructive uropathy, small to moderate ascites and hepatosplenomegaly. ANTIMICROBIALS: Levaquin PHYSICAL EXAMINATION: GENERAL: This is a well-developed, ill-appearing, middle-aged man who is awake, in no distress. HEENT: Head atraumatic, normocephalic. Sclerae anicteric. Buccal mucosa dry. NECK: Supple. CHEST: Rise symmetrical. Breath sounds diminished. HEART: S1, S2. ABDOMEN: Soft, bowel tones present. EXTREMITIES: No cyanosis. Bilateral lower extremities edema. ASSESSMENT: 1. Leukocytosis, ongoing. The patient is on steroids and has a history of leukocytosis on previous admissions. 2. Pneumonia. 3. History of alcoholic pancreatitis. 4. Chronic alcoholism and polysubstance abuse. 6. Acute alcoholic hepatitis. 7. Scrotal edema==> improving PLAN: Clinically improving. Continue present care, scrotal elevation. Follow gastroenterology recommendations. Dc abx DW pt DW staff Problems: Consultation Date/Type/Reason Admit Date/Time Jan 19, 2017 at 06:11 Type of Consultation: ID Referring Provider: BRENNON RASMUSSEN DINKEY BRAKEMAN Exam/Review of Systems Vital Signs Vitals Vital Signs Date Time Temp Pulse Resp B/P Pulse Ox O2 Delivery O2 Flow Rate FiO2 01/26/17 12:58 63 107/60 01/26/17 07:57 98.3 16 99 Intake and Output 01/25/17 01/25/17 01/26/17 15:00 23:00 07:00 Intake Total 1480 ml 1200 ml Balance 1480 ml 1200 ml Results Result Diagram: 01/26/17 0541 01/26/17 0540 Results 24 hrs Laboratory Tests Test 01/26/17 05:40 01/26/17 05:41 Sodium Level 131 L Potassium Level 3.8 Chloride Level 99 Carbon Dioxide Level 24 Anion Gap 12 Blood Urea Nitrogen 10 Creatinine 0.48 L Glucose Level 75 # Calcium Level 8.3 L Phosphorus Level 4.1 Magnesium Level 2.0 Total Bilirubin 11.7 H Direct Bilirubin 9.20 H Indirect Bilirubin 2.5 H Aspartate Amino Transf (AST/SGOT) 46 Alanine Aminotransferase (ALT/SGPT) 45 Alkaline Phosphatase 331 H Lactate Dehydrogenase 400 Total Protein 6.2 Albumin 3.1 L Globulin 3.10 Albumin/Globulin Ratio 1.00 White Blood Count 56.1 H Red Blood Count 3.18 L Hemoglobin 10.9 L Hematocrit 32.5 L Mean Corpuscular Volume 102.2 H Mean Corpuscular Hemoglobin 34.3 H Mean Corpuscular Hemoglobin Concent 33.5 Red Cell Distribution Width 18.6 H Platelet Count 250 Mean Platelet Volume 11.4 H Neutrophils % 82.0 H Band Neutrophils % 9.0 H Lymphocytes % 2.0 L Monocytes % 4.0 Eosinophils % Basophils % Metamyelocytes % 2.0 H Myelocytes % 1.0 H Neutrophils # 46.0 H Lymphocytes # 1.1 Monocytes # 2.2 H Eosinophils # Basophils # Metamyelocytes # 1.1 Myelocytes # 0.6 Differential Comment MANUAL DIFF Medications Medications Current Medications Ondansetron HCl (Zofran Inj) 4 mg Q6H PRN IV NAUSEA AND/OR VOMITING Last administered on 01/26/17 19:40; Admin Dose 4 MG; Start 01/19/17 at 09:00 Ergocalciferol (Drisdol) 50,000 unit Q7D PO Last administered on 01/20/17 09: 33; Admin Dose 50,000 UNIT; Start 01/20/17 at 09:00 Folic Acid (Folic Acid) 2 mg DAILY PO Last administered on 01/26/17 10:48; Admin Dose 2 MG; Start 01/20/17 at 09:00 Hydrocortisone (Anusol-Hc Supp) 25 mg TID PRN [place] HEMORROID PAIN/ITCHING; Start 01/19/17 at 11:30 Propranolol HCl (Inderal) 10 mg TID PO Last administered on 01/26/17 20:34; Admin Dose 10 MG; Start 01/19/17 at 13:00 Senna/Docusate Sodium (Senokot-S) 2 tab HS PO Last administered on 01/26/17 20 :30; Admin Dose 2 TAB; Start 01/19/17 at 21:00 Methylprednisolone (Medrol) 32 mg DAILY PO Last administered on 01/26/17 10:49 ; Admin Dose 32 MG; Start 01/19/17 at 13:00 Lorazepam 0.5 mg 0.5 mg Q6H PRN PO ANXIETY; Start 01/20/17 at 17:00 Levofloxacin/ Dextrose (Levaquin 500mg/ D5W 100 ml (Pmx)) 100 ml @ 100 mls/hr Q24H IVPB Last administered on 01/26/17 15:24; Admin Dose 100 MLS/HR; Start at 15:00 Pantoprazole (Protonix Tab) 40 mg DAILY@06 PO Last administered on 01/26/17 05 :23; Admin Dose 40 MG; Start 01/23/17 at 06:00 Morphine Sulfate (morphine) 3 mg Q4H PRN IV PAIN LEVEL 7-10 Last administered on 01/26/17 19:41; Admin Dose 3 MG; Start 01/26/17 at 13:00 ABDIRASHID CALZADA NP Jan 26, 2017 21:26
[2017-01-26 22:21] VITALS: BP 115/58; RESP 19
[2017-01-27] MEDS: morphine 4 MG/ML VIAL IV PRN ×6 (00:16→22:43)
[2017-01-27] MEDS: ONDANSETRON 4 MG INJ IV PRN ×3 (01:48→18:43)
[2017-01-27] MEDS: PANTOPRAZOLE (EC) 40 MG TAB PO SCH (06:06)
[2017-01-27 06:38] LABS: ADD SCAN DIFF NO
[2017-01-27 06:47] LABS: ABNORMAL IP MESSAGE 1; HEMATOCRIT 30.7 % (42.0-52.0); HEMOGLOBIN 10.3 g/dl (14.0-18.0); MEAN CORPUSCULAR HGB CONC 33.6 g/dl (32.0-37.0); MEAN CORPUSCULAR VOLUME 101.3 fl (82.0-101.0); MEAN PLATELET VOLUME 11.4 fl (7.4-10.4); PLATELET COUNT 254 10^3/UL (140-415); RED BLOOD COUNT 3.03 10^6/ul (4.70-6.10); RED CELL DISTRIBUTION WIDTH 18.6 % (11.5-14.5); WHITE BLOOD COUNT 58.2 10^3/ul (4.8-10.8)
[2017-01-27 07:34] LABS: ALBUMIN 3.2 g/dl (3.3-4.9); ALBUMIN/GLOBULIN RATIO 1.06; BILIRUBIN,DIRECT 10.2 mg/dl (0.00-0.20); BILIRUBIN,INDIRECT 2.6 mg/dl (0-1.1); BILIRUBIN,TOTAL 12.8 mg/dl (0.2-1.3); CALCIUM 8.1 mg/dl (8.4-10.2); CREATININE 0.47 mg/dl (0.61-1.24); POTASSIUM 3.7 mmol/L (3.5-5.1); TOTAL PROTEIN 6.2 g/dl (6.1-8.1)
[2017-01-27 07:37] LABS: MAGNESIUM 2.1 mg/dl (1.7-2.5)
[2017-01-27 08:45] VITALS: BP 112/60; RESP 20
[2017-01-27] MEDS: ERGOCALCIFEROL 50,000 UNIT CAP PO SCH (09:12)
[2017-01-27] MEDS: PROPRANOLOL 10 MG TAB PO SCH ×3 (09:12→20:14)
[2017-01-27] MEDS: FOLIC ACID 1 MG TAB PO SCH (09:13)
[2017-01-27] MEDS: METHYLPREDNISOLONE 4 MG TAB PO SCH (09:13)
[2017-01-27 10:35] LABS: EOSINOPHILS # 1.2 10^3/ul (0.0-0.5); LYMPHOCYTES # 2.3 10^3/ul (0.8-2.9); MONOCYTE # 0.6 10^3/ul (0.3-0.9); MYELOCYTES # 0.6; NEUTROPHIL # 50.1 10^3/ul (1.6-7.5)
--- NOTE | 2017-01-27 12:43 | PN ---
DATE: 01/27/2017 SUBJECTIVE: Chart reviewed. No significant events noted. PHYSICAL EXAMINATION: VITAL SIGNS: Blood pressure 112/60, pulse 95, respirations 20, temperature 98, saturating 94%. HEENT: Pupils are equal and reactive to light. NECK: Supple, no JVD noted, no cervical lymphadenopathy noted, no carotid bruits heard. LUNGS: Fair breath sounds bilaterally. CARDIOVASCULAR: S1, S2 normal. ABDOMEN: Soft, mildly distended, positive bowel sounds. EXTREMITIES: No clubbing or cyanosis noted. NEUROLOGICAL: Awake. LABORATORY DATA: WBC 58.2, hemoglobin 10.3, hematocrit 30.7, platelets 254. Sodium 133, potassium 3.7, chloride 98, CO2 of 25, BUN 8, creatinine 0.47, glucose 88. IMPRESSION: 1. Alcoholic hepatitis. 2. Leukocytosis, likely due to alcoholic hepatitis and steroids. 3. History of alcohol abuse. 4. Coagulopathy. PLAN: 1. Continue antibiotics per ID. 2. Hematology evaluation noted and appreciated. 3. Follow up labs. 4. Above discussed with the staff. Dictated By: IAN REN MD, MA/GREER Conf#: [id number] DID#: [id number]
--- NOTE | 2017-01-27 12:49 | CONS ---
Date/Time of Note Date/Time of Note DATE: 01/27/17 TIME: 12:48 Assessment/Plan Assessment/Plan Chief Complaint/Hosp Course SUBJECTIVE: Alert, feels good, no fevers MICROBIOLOGY: Blood cultures remain negative. DIAGNOSTICS: CT of the abdomen and pelvis revealed ill-defined consolidation in the anterior segment right upper lobe, no evidence of obstructive uropathy, small to moderate ascites and hepatosplenomegaly. PHYSICAL EXAMINATION: GENERAL: This is a well-developed, ill-appearing, middle-aged man who is awake, in no distress. HEENT: Head atraumatic, normocephalic. Sclerae anicteric. Buccal mucosa dry. NECK: Supple. CHEST: Rise symmetrical. Breath sounds diminished. HEART: S1, S2. ABDOMEN: Soft, bowel tones present. EXTREMITIES: No cyanosis. Bilateral lower extremities edema. ASSESSMENT: 1. Leukocytosis, ongoing. The patient is on steroids and has a history of leukocytosis on previous admissions. 2. S/p pneumonia. 3. History of alcoholic pancreatitis. 4. Chronic alcoholism and polysubstance abuse. 6. Acute alcoholic hepatitis. 7. Scrotal edema==> improving PLAN: Clinically stable, completed abx. Continue present care, scrotal elevation. Follow gastroenterology/hematology recommendations. DW staff Problems: Consultation Date/Type/Reason Admit Date/Time Jan 19, 2017 at 06:11 Type of Consultation: ID Referring Provider: BRENNON RASMUSSEN STEEL DIE PRINTER Exam/Review of Systems Vital Signs Vitals Vital Signs Date Time Temp Pulse Resp B/P Pulse Ox O2 Delivery O2 Flow Rate FiO2 01/27/17 08:45 98.0 95 20 112/60 94 Intake and Output 01/26/17 01/26/17 01/27/17 15:00 23:00 07:00 Intake Total 1560 ml 1200 ml Output Total 3400 ml Balance 1560 ml -2200 ml Results Result Diagram: 01/27/17 0525 01/27/17 0525 Results 24 hrs Laboratory Tests Test 01/27/17 05:25 White Blood Count 58.2 H Red Blood Count 3.03 L Hemoglobin 10.3 L Hematocrit 30.7 L Mean Corpuscular Volume 101.3 H Mean Corpuscular Hemoglobin 34.0 H Mean Corpuscular Hemoglobin Concent 33.6 Red Cell Distribution Width 18.6 H Platelet Count 254 Mean Platelet Volume 11.4 H Neutrophils % 86.0 H Band Neutrophils % 6.0 H Lymphocytes % 4.0 L Monocytes % 1.0 Eosinophils % 2.0 Basophils % Myelocytes % 1.0 H Neutrophils # 50.1 H Lymphocytes # 2.3 Monocytes # 0.6 Eosinophils # 1.2 H Basophils # Myelocytes # 0.6 Differential Comment MANUAL DIFF Large Platelets FEW Sodium Level 133 L Potassium Level 3.7 Chloride Level 98 Carbon Dioxide Level 25 Anion Gap 14 Blood Urea Nitrogen 8 Creatinine 0.47 L Glucose Level 88 Calcium Level 8.1 L Phosphorus Level 4.0 Magnesium Level 2.1 Total Bilirubin 12.8 H Direct Bilirubin 10.20 H Indirect Bilirubin 2.6 H Aspartate Amino Transf (AST/SGOT) 42 Alanine Aminotransferase (ALT/SGPT) 42 Alkaline Phosphatase 349 H Total Protein 6.2 Albumin 3.2 L Globulin 3.00 Albumin/Globulin Ratio 1.06 Medications Medications Current Medications Ondansetron HCl (Zofran Inj) 4 mg Q6H PRN IV NAUSEA AND/OR VOMITING Last administered on 01/27/17 09:25; Admin Dose 4 MG; Start 01/19/17 at 09:00 Ergocalciferol (Drisdol) 50,000 unit Q7D PO Last administered on 01/27/17 09: 12; Admin Dose 50,000 UNIT; Start 01/20/17 at 09:00 Folic Acid (Folic Acid) 2 mg DAILY PO Last administered on 01/27/17 09:13; Admin Dose 2 MG; Start 01/20/17 at 09:00 Hydrocortisone (Anusol-Hc Supp) 25 mg TID PRN [place] HEMORROID PAIN/ITCHING; Start 01/19/17 at 11:30 Propranolol HCl (Inderal) 10 mg TID PO Last administered on 01/27/17 12:44; Admin Dose 10 MG; Start 01/19/17 at 13:00 Senna/Docusate Sodium (Senokot-S) 2 tab HS PO Last administered on 01/26/17 20 :30; Admin Dose 2 TAB; Start 01/19/17 at 21:00 Methylprednisolone (Medrol) 32 mg DAILY PO Last administered on 01/27/17 09:13 ; Admin Dose 32 MG; Start 01/19/17 at 13:00 Lorazepam (Ativan) 0.5 mg Q6H PRN PO ANXIETY; Start 01/20/17 at 17:00 Pantoprazole (Protonix Tab) 40 mg DAILY@06 PO Last administered on 01/27/17 06 :06; Admin Dose 40 MG; Start 01/23/17 at 06:00 Morphine Sulfate (morphine) 3 mg Q4H PRN IV PAIN LEVEL 7-10 Last administered on 01/27/17 09:13; Admin Dose 3 MG; Start 01/26/17 at 13:00 ABDIRASHID CALZADA NP Jan 27, 2017 12:49
--- NOTE | 2017-01-27 14:55 | CONS ---
Date/Time of Note Date/Time of Note DATE: 01/27/17 TIME: 14:53 Assessment/Plan Assessment/Plan Chief Complaint/Hosp Course Patient with severe alcoholic hepatitis and pancreatitis now on steroids who presents with chronic leukocytosis #Leukocytosis - PT does not appear actively infected. pt has been admitted multiple times for alcoholic hepatitis and has presented with severe leukocytosis during those time. His current leukocytosis is likely secondary to the steroids and alcoholic hepatitis. Peripheral smear was reviewed and did not show evidence of acute leukemia or obvious myeloproliferative disorder -Flow Cytometry , Hal 2 mutation analysis and BCR ABL were all ordered #Alcoholic Hepatitis -this is causing macrocytic anemia with dysmaturation of bone marrow. -continue supportive care per primary team Problems: (1) Leukocytosis Status: Acute Qualifiers: Leukocytosis type: leukemoid reaction Qualified Code: D72.823 - Leukemoid reaction (2) Alcoholic liver failure Status: Chronic Consultation Date/Type/Reason Admit Date/Time Jan 19, 2017 at 06:11 Initial Consult Date 01/25/17 Type of Consultation: Hematology Reason for Consultation leukocytosis Referring Provider: BRENNON RASMUSSEN NP 24 HR Interval Summary Free Text/Dictation no acute overnight events. pt has since completed a course of antibiotics Exam/Review of Systems Vital Signs Vitals Vital Signs Date Time Temp Pulse Resp B/P Pulse Ox O2 Delivery O2 Flow Rate FiO2 01/27/17 08:45 98.0 95 20 112/60 94 Intake and Output 01/26/17 01/26/17 01/27/17 15:00 23:00 07:00 Intake Total 1560 ml 1200 ml Output Total 3400 ml Balance 1560 ml -2200 ml Exam Constitutional: alert, oriented Psych: nl mood/affect, no complaints Head: normocephalic Eyes: nl conjunctiva ENMT: nl external ears & nose Neck: non-tender, supple Respiratory: clear to auscultation, normal air movement Cardiovascular: regular rate and rhythm Gastrointestinal: soft Musculoskeletal: nl extremities to inspection, nl gait and stance Extremities: edema Results Result Diagram: 01/27/17 0525 01/27/17 0525 Results 24 hrs Laboratory Tests Test 01/27/17 05:25 White Blood Count 58.2 H Red Blood Count 3.03 L Hemoglobin 10.3 L Hematocrit 30.7 L Mean Corpuscular Volume 101.3 H Mean Corpuscular Hemoglobin 34.0 H Mean Corpuscular Hemoglobin Concent 33.6 Red Cell Distribution Width 18.6 H Platelet Count 254 Mean Platelet Volume 11.4 H Neutrophils % 86.0 H Band Neutrophils % 6.0 H Lymphocytes % 4.0 L Monocytes % 1.0 Eosinophils % 2.0 Basophils % Myelocytes % 1.0 H Neutrophils # 50.1 H Lymphocytes # 2.3 Monocytes # 0.6 Eosinophils # 1.2 H Basophils # Myelocytes # 0.6 Differential Comment MANUAL DIFF Large Platelets FEW Sodium Level 133 L Potassium Level 3.7 Chloride Level 98 Carbon Dioxide Level 25 Anion Gap 14 Blood Urea Nitrogen 8 Creatinine 0.47 L Glucose Level 88 Calcium Level 8.1 L Phosphorus Level 4.0 Magnesium Level 2.1 Total Bilirubin 12.8 H Direct Bilirubin 10.20 H Indirect Bilirubin 2.6 H Aspartate Amino Transf (AST/SGOT) 42 Alanine Aminotransferase (ALT/SGPT) 42 Alkaline Phosphatase 349 H Total Protein 6.2 Albumin 3.2 L Globulin 3.00 Albumin/Globulin Ratio 1.06 Medications Medications Current Medications Ondansetron HCl (Zofran Inj) 4 mg Q6H PRN IV NAUSEA AND/OR VOMITING Last administered on 01/27/17 09:25; Admin Dose 4 MG; Start 01/19/17 at 09:00 Ergocalciferol (Drisdol) 50,000 unit Q7D PO Last administered on 01/27/17 09: 12; Admin Dose 50,000 UNIT; Start 01/20/17 at 09:00 Folic Acid (Folic Acid) 2 mg DAILY PO Last administered on 01/27/17 09:13; Admin Dose 2 MG; Start 01/20/17 at 09:00 Hydrocortisone (Anusol-Hc Supp) 25 mg TID PRN [place] HEMORROID PAIN/ITCHING; Start 01/19/17 at 11:30 Propranolol HCl (Inderal) 10 mg TID PO Last administered on 01/27/17 12:44; Admin Dose 10 MG; Start 01/19/17 at 13:00 Senna/Docusate Sodium (Senokot-S) 2 tab HS PO Last administered on 01/26/17 20 :30; Admin Dose 2 TAB; Start 01/19/17 at 21:00 Methylprednisolone (Medrol) 32 mg DAILY PO Last administered on 01/27/17 09:13 ; Admin Dose 32 MG; Start 01/19/17 at 13:00 Lorazepam (Ativan) 0.5 mg Q6H PRN PO ANXIETY; Start 01/20/17 at 17:00 Pantoprazole (Protonix Tab) 40 mg DAILY@06 PO Last administered on 01/27/17 06 :06; Admin Dose 40 MG; Start 01/23/17 at 06:00 Morphine Sulfate (morphine) 3 mg Q4H PRN IV PAIN LEVEL 7-10 Last administered on 01/27/17 14:11; Admin Dose 3 MG; Start 01/26/17 at 13:00 HARSHIL ALMONTE M.D. Jan 27, 2017 14:55
[2017-01-27] MEDS: SENNA/DOCUSATE NA (8.6MG/50MG) TAB PO SCH (20:14)
[2017-01-27 22:15] VITALS: BP 109/61; RESP 18
[2017-01-28] MEDS: LORAZEPAM 0.5 MG TAB PO PRN ×3 (00:15→21:17)
[2017-01-28] MEDS: ONDANSETRON 4 MG INJ IV PRN ×4 (01:47→21:17)
[2017-01-28] MEDS: morphine 4 MG/ML VIAL IV PRN ×5 (02:52→20:12)
[2017-01-28] MEDS: PANTOPRAZOLE (EC) 40 MG TAB PO SCH (06:47)
[2017-01-28 07:18] LABS: MAGNESIUM 2.1 mg/dl (1.7-2.5)
[2017-01-28 08:00] VITALS: BP 113/64; RESP 20
[2017-01-28] MEDS: METHYLPREDNISOLONE 4 MG TAB PO SCH (08:55)
[2017-01-28] MEDS: FOLIC ACID 1 MG TAB PO SCH (08:56)
[2017-01-28] MEDS: PROPRANOLOL 10 MG TAB PO SCH ×3 (08:57→20:11)
--- NOTE | 2017-01-28 13:16 | PN ---
DATE: 01/28/2017 INTERNAL MEDICINE FOLLOWUP SUBJECTIVE: Chart reviewed. No significant events noted. PHYSICAL EXAMINATION: VITAL SIGNS: Blood pressure 113/64, pulse 78, respirations 20, temperature 98.6, saturating 96%. HEENT: Pupils are equal and reactive to light. NECK: Supple. No JVD noted. No cervical adenopathy noted. No carotid bruits heard. LUNGS: Fair breath sounds bilaterally. CARDIOVASCULAR: S1, S2 normal. ABDOMEN: Soft, nontender. No organomegaly or masses noted. EXTREMITIES: No clubbing or cyanosis noted. NEUROLOGICAL: Awake. IMPRESSION: 1. Alcoholic hepatitis. 2. Leukocytosis secondary to alcoholic hepatitis and steroids. 3. History of alcohol abuse. 4. Coagulopathy. PLAN: 1. Hematology followup noted. 2. Will discuss with ID regarding discontinuation of antibiotics and observing the patient. 3. Follow up labs. 4. Above discussed with the staff. Dictated By: IAN REN MD, MA/GREER Conf#: [id number] DID#: [id number]
--- NOTE | 2017-01-28 13:35 | CONS ---
Date/Time of Note Date/Time of Note DATE: 01/28/17 TIME: 13:34 Assessment/Plan Assessment/Plan Chief Complaint/Hosp Course SUBJECTIVE: Alert, feels good, no fevers MICROBIOLOGY: Blood cultures remain negative. DIAGNOSTICS: CT of the abdomen and pelvis revealed ill-defined consolidation in the anterior segment right upper lobe, no evidence of obstructive uropathy, small to moderate ascites and hepatosplenomegaly. PHYSICAL EXAMINATION: GENERAL: This is a well-developed, ill-appearing, middle-aged man who is awake, in no distress. HEENT: Head atraumatic, normocephalic. Sclerae anicteric. Buccal mucosa dry. NECK: Supple. CHEST: Rise symmetrical. Breath sounds diminished. HEART: S1, S2. ABDOMEN: Soft, bowel tones present. EXTREMITIES: No cyanosis. Bilateral lower extremities edema. ASSESSMENT: 1. Leukocytosis, ongoing, likely leukemoid r-n, hematology follows. The patient is on steroids and has a history of leukocytosis on previous admissions. 2. S/p pneumonia. 3. History of alcoholic pancreatitis. 4. Chronic alcoholism and polysubstance abuse. 6. Acute alcoholic hepatitis. 7. Scrotal edema==> improving PLAN: Clinically stable, completed abx. Continue present care, scrotal elevation. Follow gastroenterology/hematology recommendations. DW staff Problems: Consultation Date/Type/Reason Admit Date/Time Jan 19, 2017 at 06:11 Type of Consultation: id Referring Provider: BRENNON RASMUSSEN CUTTER OPERATOR BRICK Exam/Review of Systems Vital Signs Vitals Vital Signs Date Time Temp Pulse Resp B/P Pulse Ox O2 Delivery O2 Flow Rate FiO2 01/28/17 08:00 98.6 20 113/64 96 01/27/17 22:15 78 Intake and Output 01/27/17 01/27/17 01/28/17 15:00 23:00 07:00 Intake Total 600 ml 1200 ml Output Total 900 ml Balance -300 ml 1200 ml Results Result Diagram: 01/27/17 0525 01/27/1725 Results 24 hrs Laboratory Tests Test 01/28/17 05:15 Phosphorus Level 4.0 Magnesium Level 2.1 Medications Medications Current Medications Ondansetron HCl (Zofran Inj) 4 mg Q6H PRN IV NAUSEA AND/OR VOMITING Last administered on 01/28/17t 08:57; Admin Dose 4 MG; Start 01/19/17 at 09:00 Ergocalciferol (Drisdol) 50,000 unit Q7D PO Last administered on 01/27/17 09: 12; Admin Dose 50,000 UNIT; Start 01/20/17 at 09:00 Folic Acid (Folic Acid) 2 mg DAILY PO Last administered on 01/28/17 08:56; Admin Dose 2 MG; Start 01/20/17 at 09:00 Hydrocortisone (Anusol-Hc Supp) 25 mg TID PRN [place] HEMORROID PAIN/ITCHING; Start 01/19/17 at 11:30 Propranolol HCl (Inderal) 10 mg TID PO Last administered on 01/28/17 12:49; Admin Dose 10 MG; Start 01/19/17 at 13:00 Senna/Docusate Sodium (Senokot-S) 2 tab HS PO Last administered on 01/27/17 20 :14; Admin Dose 2 TAB; Start 01/19/17 at 21:00 Methylprednisolone (Medrol) 32 mg DAILY PO Last administered on 01/28/17 08:55 ; Admin Dose 32 MG; Start 01/19/17 at 13:00 Lorazepam (Ativan) 0.5 mg Q6H PRN PO ANXIETY Last administered on 01/28/17 12: 48; Admin Dose 0.5 MG; Start 01/20/17 at 17:00 Pantoprazole (Protonix Tab) 40 mg DAILY@06 PO Last administered on 01/28/17 06 :47; Admin Dose 40 MG; Start 01/23/17 at 06:00 Morphine Sulfate (morphine) 3 mg Q4H PRN IV PAIN LEVEL 7-10 Last administered on 01/28/17 10:53; Admin Dose 3 MG; Start 01/26/17 at 13:00 ABDIRASHID CALZADA NP Jan 28, 2017 13:35
--- NOTE | 2017-01-28 14:12 | CONS ---
Date/Time of Note Date/Time of Note DATE: 01/28/17 TIME: 14:08 Assessment/Plan Assessment/Plan Chief Complaint/Hosp Course Patient with severe alcoholic hepatitis and pancreatitis now on steroids who presents with chronic leukocytosis #Leukocytosis - PT does not appear actively infected. pt has been admitted multiple times for alcoholic hepatitis and has presented with severe leukocytosis during those time. His current leukocytosis is likely secondary to the steroids and alcoholic hepatitis. Peripheral smear was reviewed and did not show evidence of acute leukemia or obvious myeloproliferative disorder. Flow cytometry does not show evidence of hematologic malignancy. There is evidence of a left shifted myeloid maturation and no abnormal B cell population -, Hal 2 mutation analysis and BCR ABL were all ordered and are pending #Alcoholic Hepatitis -this is causing macrocytic anemia with dysmaturation of bone marrow. -continue supportive care per primary team Problems: Consultation Date/Type/Reason Admit Date/Time Jan 19, 2017 at 06:11 Initial Consult Date 01/25/17 Type of Consultation: Hematology Reason for Consultation Leukocytosis Referring Provider: BRENNON RASMUSSEN HEATER TENDER 24 HR Interval Summary Free Text/Dictation no acute overnight events Exam/Review of Systems Vital Signs Vitals Vital Signs Date Time Temp Pulse Resp B/P Pulse Ox O2 Delivery O2 Flow Rate FiO2 01/28/17 08:00 98.6 20 113/64 96 01/27/17 22:15 78 Intake and Output 01/27/17 01/27/17 01/28/17 15:00 23:00 07:00 Intake Total 600 ml 1200 ml Output Total 900 ml Balance -300 ml 1200 ml Exam Constitutional: alert, oriented Psych: no complaints Head: atraumatic, normocephalic Eyes: nl conjunctiva ENMT: nl external ears & nose Neck: non-tender, supple Respiratory: clear to auscultation, normal air movement Cardiovascular: regular rate and rhythm Gastrointestinal: ascites, soft Musculoskeletal: swelling Results Result Diagram: 01/27/1725 01/27/17 0525 Results 24 hrs Laboratory Tests Test 01/28/17 05:15 Phosphorus Level 4.0 Magnesium Level 2.1 Medications Medications Current Medications Ondansetron HCl (Zofran Inj) 4 mg Q6H PRN IV NAUSEA AND/OR VOMITING Last administered on 01/28/17t 08:57; Admin Dose 4 MG; Start 01/19/17 at 09:00 Ergocalciferol (Drisdol) 50,000 unit Q7D PO Last administered on 01/27/17 09: 12; Admin Dose 50,000 UNIT; Start 01/20/17 at 09:00 Folic Acid (Folic Acid) 2 mg DAILY PO Last administered on 01/28/17 08:56; Admin Dose 2 MG; Start 01/20/17 at 09:00 Hydrocortisone (Anusol-Hc Supp) 25 mg TID PRN [place] HEMORROID PAIN/ITCHING; Start 01/19/17 at 11:30 Propranolol HCl (Inderal) 10 mg TID PO Last administered on 01/28/17 12:49; Admin Dose 10 MG; Start 01/19/17 at 13:00 Senna/Docusate Sodium (Senokot-S) 2 tab HS PO Last administered on 01/27/17 20 :14; Admin Dose 2 TAB; Start 01/19/17 at 21:00 Methylprednisolone (Medrol) 32 mg DAILY PO Last administered on 01/28/17 08:55 ; Admin Dose 32 MG; Start 01/19/17 at 13:00 Lorazepam (Ativan) 0.5 mg Q6H PRN PO ANXIETY Last administered on 01/28/17 12: 48; Admin Dose 0.5 MG; Start 01/20/17 at 17:00 Pantoprazole (Protonix Tab) 40 mg DAILY@06 PO Last administered on 01/28/17 06 :47; Admin Dose 40 MG; Start 01/23/17 at 06:00 Morphine Sulfate (morphine) 3 mg Q4H PRN IV PAIN LEVEL 7-10 Last administered on 01/28/17 10:53; Admin Dose 3 MG; Start 01/26/17 at 13:00 HARSHIL ALMONTE M.D. Jan 28, 2017 14:12
--- NOTE | 2017-01-28 14:22 | PN ---
Date/Time of Note Date/Time of Note DATE: 01/28/17 TIME: 14:19 Assessment/Plan VTE Prophylaxis VTE Prophylaxis Intervention: ambulation Lines/Catheters IV [facility] Type [facility] Saline Lock Urinary Cath still in place: No Assessment/Plan Assessment/Plan Acute alcoholic hepatitis, high discriminant function which denotes high mortality and benefit for steroid treatment Marked leukocytosis. Fairly common finding in patients with alcoholic hepatitis especially in treatment with steroids Chronic alcoholism Polysubstance abuse/poor compliance Edema bilateral T/C acute kidney injury Plan: Continue present management Trend liver enzymes/white blood cell count Advance diet as tolerated Abstinence critical to his recovery and lifespan Case was discussed with Dr Ospina Further orders will depend on clinical course Subjective 24 Hr Interval Summary Free Text/Dictation * Course reviewed with RN * Patient seen and examined * Normal ALT/AST but elevated bilirubin * No abdominal pain Exam/Review of Systems Vital Signs Vitals Vital Signs Date Time Temp Pulse Resp B/P Pulse Ox O2 Delivery O2 Flow Rate FiO2 01/28/17 08:00 98.6 20 113/64 96 01/27/17 22:15 78 Intake and Output 01/27/17 01/27/17 01/28/17 15:00 23:00 07:00 Intake Total 600 ml 1200 ml Output Total 900 ml Balance -300 ml 1200 ml Exam Constitutional: alert, oriented Eyes: icteric ENMT: mucosa pink and moist Neck: non-tender, supple Respiratory: clear to auscultation, normal air movement Cardiovascular: regular rate and rhythm Gastrointestinal: nl liver, spleen, non-tender, soft Musculoskeletal: nl extremities to inspection, nl gait and stance Extremities: normal pulses 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: nl speech, nl strength Skin: nl turgor, No rash or lesions Lymph: nl lymph nodes Results Result Diagram: 01/27/1725 01/27/17524 Results 24 hrs Laboratory Tests Test 01/28/17 05:15 Phosphorus Level 4.0 Magnesium Level 2.1 Medications Medications Current Medications Ondansetron HCl (Zofran Inj) 4 mg Q6H PRN IV NAUSEA AND/OR VOMITING Last administered on 01/28/17 08:57; Admin Dose 4 MG; Start 01/19/17 at 09:00 Ergocalciferol (Drisdol) 50,000 unit Q7D PO Last administered on 01/27/17 09: 12; Admin Dose 50,000 UNIT; Start 01/20/17 at 09:00 Folic Acid (Folic Acid) 2 mg DAILY PO Last administered on 01/28/17 08:56; Admin Dose 2 MG; Start 01/20/17 at 09:00 Hydrocortisone (Anusol-Hc Supp) 25 mg TID PRN [place] HEMORROID PAIN/ITCHING; Start 01/19/17 at 11:30 Propranolol HCl (Inderal) 10 mg TID PO Last administered on 01/28/17 12:49; Admin Dose 10 MG; Start 01/19/17 at 13:00 Senna/Docusate Sodium (Senokot-S) 2 tab HS PO Last administered on 01/27/17 20 :14; Admin Dose 2 TAB; Start 01/19/17 at 21:00 Methylprednisolone (Medrol) 32 mg DAILY PO Last administered on 01/28/17 08:55 ; Admin Dose 32 MG; Start 01/19/17 at 13:00 Lorazepam (Ativan) 0.5 mg Q6H PRN PO ANXIETY Last administered on 01/28/17 12: 48; Admin Dose 0.5 MG; Start 01/20/17 at 17:00 Pantoprazole (Protonix Tab) 40 mg DAILY@06 PO Last administered on 01/28/17 06 :47; Admin Dose 40 MG; Start 01/23/17 at 06:00 Morphine Sulfate (morphine) 3 mg Q4H PRN IV PAIN LEVEL 7-10 Last administered on 01/28/17 10:53; Admin Dose 3 MG; Start 01/26/17 at 13:00 CROW ALEJANDRO NP Jan 28, 2017 14:22
[2017-01-28] MEDS: GUAIFENESIN/CODEINE 5ML CUP PO PRN ×2 (17:11→22:06)
[2017-01-28] MEDS: SENNA/DOCUSATE NA (8.6MG/50MG) TAB PO SCH (20:12)
[2017-01-28] MEDS: ALBUMIN HUMAN 25% 50 ML IV SCH (20:14)
[2017-01-28 21:09] VITALS: BP 122/70; RESP 17
[2017-01-29] MEDS: morphine 4 MG/ML VIAL IV PRN ×6 (00:32→22:30)
[2017-01-29] MEDS: GUAIFENESIN/CODEINE 5ML CUP PO PRN ×6 (02:06→23:18)
[2017-01-29] MEDS: ALBUMIN HUMAN 25% 50 ML IV SCH ×2 (05:15→13:47)
[2017-01-29] MEDS: PANTOPRAZOLE (EC) 40 MG TAB PO SCH (05:16)
[2017-01-29] MEDS: ONDANSETRON 4 MG INJ IV PRN ×3 (05:16→18:21)
[2017-01-29] MEDS: METHYLPREDNISOLONE 4 MG TAB PO SCH (08:50)
[2017-01-29] MEDS: LORAZEPAM 0.5 MG TAB PO PRN ×4 (08:50→23:18)
[2017-01-29] MEDS: FOLIC ACID 1 MG TAB PO SCH (08:50)
[2017-01-29] MEDS: FUROSEMIDE 20 MG INJ IV SCH (08:52)
[2017-01-29] MEDS: PROPRANOLOL 10 MG TAB PO SCH ×3 (08:52→20:28)
[2017-01-29 09:00] VITALS: BP 146/68; RESP 18
--- NOTE | 2017-01-29 10:25 | CONS ---
Date/Time of Note Date/Time of Note DATE: 01/29/17 TIME: 10:24 Assessment/Plan Assessment/Plan Chief Complaint/Hosp Course Patient with severe alcoholic hepatitis and pancreatitis now on steroids who presents with chronic leukocytosis #Leukocytosis - PT does not appear actively infected. pt has been admitted multiple times for alcoholic hepatitis and has presented with severe leukocytosis during those time. His current leukocytosis is likely secondary to the steroids and alcoholic hepatitis. Peripheral smear was reviewed and did not show evidence of acute leukemia or obvious myeloproliferative disorder. Flow cytometry does not show evidence of hematologic malignancy. There is evidence of a left shifted myeloid maturation and no abnormal B cell population -, Hal 2 mutation analysis and BCR ABL were all ordered and are pending #Alcoholic Hepatitis -this is causing macrocytic anemia with dysmaturation of bone marrow. -continue supportive care per primary team Problems: Consultation Date/Type/Reason Admit Date/Time Jan 19, 2017 at 06:11 Initial Consult Date 01/25/17 Type of Consultation: Hematology Reason for Consultation leukocytosis Referring Provider: BRENNON RASMUSSEN NP 24 HR Interval Summary Free Text/Dictation no acute overnight events. Exam/Review of Systems Vital Signs Vitals Vital Signs Date Time Temp Pulse Resp B/P Pulse Ox O2 Delivery O2 Flow Rate FiO2 01/28/17 21:09 98.2 87 17 122/70 94 Intake and Output 01/28/17 01/28/17 01/29/17 15:00 23:00 07:00 Intake Total 1050 ml 1550 ml Output Total 2000 ml 1800 ml Balance -950 ml -250 ml Exam Constitutional: alert, oriented Psych: no complaints Head: atraumatic, normocephalic Eyes: nl conjunctiva ENMT: nl external ears & nose Neck: supple Respiratory: clear to auscultation Cardiovascular: regular rate and rhythm Gastrointestinal: ascites Musculoskeletal: swelling Extremities: edema Results Result Diagram: 01/27/1752401/27/17524 Medications Medications Current Medications Ondansetron HCl (Zofran Inj) 4 mg Q6H PRN IV NAUSEA AND/OR VOMITING Last administered on 01/29/17 05:16; Admin Dose 4 MG; Start 01/19/17 at 09:00 Ergocalciferol (Drisdol) 50,000 unit Q7D PO Last administered on 01/27/17 09: 12; Admin Dose 50,000 UNIT; Start 01/20/17 at 09:00 Folic Acid (Folic Acid) 2 mg DAILY PO Last administered on 01/29/17 08:50; Admin Dose 2 MG; Start 01/20/17 at 09:00 Hydrocortisone (Anusol-Hc Supp) 25 mg TID PRN [place] HEMORROID PAIN/ITCHING; Start 01/19/17 at 11:30 Propranolol HCl (Inderal) 10 mg TID PO Last administered on 01/29/17 08:52; Admin Dose 10 MG; Start 01/19/17 at 13:00 Senna/Docusate Sodium (Senokot-S) 2 tab HS PO Last administered on 01/27/17 20 :14; Admin Dose 2 TAB; Start 01/19/17 at 21:00 Methylprednisolone (Medrol) 32 mg DAILY PO Last administered on 01/29/17 08:50 ; Admin Dose 32 MG; Start 01/19/17 at 13:00 Lorazepam (Ativan) 0.5 mg Q6H PRN PO ANXIETY Last administered on 01/29/17 08: 50; Admin Dose 0.5 MG; Start 01/20/17 at 17:00 Pantoprazole (Protonix Tab) 40 mg DAILY@06 PO Last administered on 01/29/17 05 :16; Admin Dose 40 MG; Start 01/23/17 at 06:00 Morphine Sulfate (morphine) 3 mg Q4H PRN IV PAIN LEVEL 7-10 Last administered on 01/29/17 09:35; Admin Dose 3 MG; Start 01/26/17 at 13:00 Guaifenesin/ Codeine Phosphate (Robitussin Ac Liquid Cup) 10 ml Q4H PRN PO COUGH Last administered on 01/29/17 05:58; Admin Dose 10 ML; Start 01/28/17 at 16:30 Furosemide 20 mg 20 mg DAILY IV Last administered on 01/29/17 08:52; Admin Dose 20 MG; Start 01/29/17 at 09:00 Albumin Human (Albumin Human 25%) 50 ml @ 100 mls/hr Q8H IV Last administered on 01/29/17 05:15; Admin Dose 100 MLS/HR; Start 01/28/17 at 21:00; Stop at 13:29 HARSHIL ALMONTE M.D. Jan 29, 2017 10:25
--- NOTE | 2017-01-29 13:35 | PN ---
Date/Time of Note Date/Time of Note DATE: 01/29/17 TIME: 13:31 Assessment/Plan VTE Prophylaxis VTE Prophylaxis Intervention: ambulation Lines/Catheters IV C[facility]ter Type (from [facility]): Saline Lock Urinary Cath still in place: No Assessment/Plan Assessment/Plan Acute alcoholic hepatitis, high discriminant function which denotes high mortality and benefit for steroid treatment Marked leukocytosis. Fairly common finding in patients with alcoholic hepatitis especially in treatment with steroids Chronic alcoholism Polysubstance abuse/poor compliance Edema bilateral T/C acute kidney injury Plan: Continue present management Trend liver enzymes/white blood cell count request for abdominal ultrasound Abstinence critical to his recovery and lifespan Case was discussed with Dr Ospina Further orders will depend on clinical course Subjective 24 Hr Interval Summary Free Text/Dictation * Course reviewed with RN * Patient seen and examined * On and off abdominal pain * complains of abdominal distension Exam/Review of Systems Vital Signs Vitals Vital Signs Date Time Temp Pulse Resp B/P Pulse Ox O2 Delivery O2 Flow Rate FiO2 01/28/17 21:09 98.2 87 17 122/70 94 Intake and Output 01/28/17 01/28/17 01/29/17 14:59 22:59 06:59 Intake Total 1050 ml 1550 ml Output Total 2000 ml 1800 ml Balance -950 ml -250 ml Exam Constitutional: alert, frail Head: atraumatic, normocephalic Eyes: icteric Neck: non-tender, supple Respiratory: clear to auscultation, normal air movement Cardiovascular: nl pulses, regular rate and rhythm Gastrointestinal: distended, non-tender, soft, No rebound or guarding Musculoskeletal: muscle weakness, swelling Extremities: normal pulses, pitting pedal edema 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: nl speech, nl strength Skin: nl turgor, No rash or lesions Results Result Diagram: 01/27/1752401/27/17524 Medications Medications Current Medications Ondansetron HCl (Zofran Inj) 4 mg Q6H PRN IV NAUSEA AND/OR VOMITING Last administered on 01/29/17 11:28; Admin Dose 4 MG; Start 01/19/17 at 09:00 Ergocalciferol (Drisdol) 50,000 unit Q7D PO Last administered on 01/27/17 09: 12; Admin Dose 50,000 UNIT; Start 01/20/17 at 09:00 Folic Acid (Folic Acid) 2 mg DAILY PO Last administered on 01/29/17 08:50; Admin Dose 2 MG; Start 01/20/17 at 09:00 Hydrocortisone (Anusol-Hc Supp) 25 mg TID PRN [place] HEMORROID PAIN/ITCHING; Start 01/19/17 at 11:30 Propranolol HCl (Inderal) 10 mg TID PO Last administered on 01/29/17 08:52; Admin Dose 10 MG; Start 01/19/17 at 13:00 Senna/Docusate Sodium (Senokot-S) 2 tab HS PO Last administered on 01/27/17 20 :14; Admin Dose 2 TAB; Start 01/19/17 at 21:00 Methylprednisolone (Medrol) 32 mg DAILY PO Last administered on 01/29/17 08:50 ; Admin Dose 32 MG; Start 01/19/17 at 13:00 Lorazepam (Ativan) 0.5 mg Q6H PRN PO ANXIETY Last administered on 01/29/17 08: 50; Admin Dose 0.5 MG; Start 01/20/17 at 17:00 Pantoprazole (Protonix Tab) 40 mg DAILY@06 PO Last administered on 01/29/17 05 :16; Admin Dose 40 MG; Start 01/23/17 at 06:00 Morphine Sulfate (morphine) 3 mg Q4H PRN IV PAIN LEVEL 7-10 Last administered on 01/29/17 09:35; Admin Dose 3 MG; Start 01/26/17 at 13:00 Guaifenesin/ Codeine Phosphate (Robitussin Ac Liquid Cup) 10 ml Q4H PRN PO COUGH Last administered on 01/29/17 10:49; Admin Dose 10 ML; Start 01/28/17 at 16:30 Furosemide (Lasix) 20 mg DAILY IV Last administered on 01/29/17 08:52; Admin Dose 20 MG; Start 01/29/17 at 09:00 CROW ALEJANDRO NP Jan 29, 2017 13:35
--- NOTE | 2017-01-29 15:35 | PN ---
DATE: 01/29/2017 SUBJECTIVE: This is an internal medicine followup. Chart reviewed. No significant changes. PHYSICAL EXAMINATION: VITAL SIGNS: Blood pressure 146/68, pulse 87, respirations 17, temperature 98.2. HEENT: Pupils are equal and react to light. NECK: Supple, no JVD noted, no cervical adenopathy, no carotid bruits heard. LUNGS: Fair breath sounds bilaterally. CARDIOVASCULAR: S1, S2 normal. ABDOMEN: Soft, nontender. No organomegaly or masses noted. EXTREMITIES: No clubbing or cyanosis noted. NEUROLOGICAL: Awake. IMPRESSION: 1. Alcoholic hepatitis. 2. Leukocytosis secondary to alcoholic hepatitis and steroids. 3. History of alcohol abuse. 4. Coagulopathy. RECOMMENDATIONS: 1. Hematology followup noted. 2. Observe off antibiotics. 3. Consider discharge planning soon. Dictated By: IAN REN MD, MA/GREER Conf#: [id number] DID#: [id number]
[2017-01-29] MEDS: SENNA/DOCUSATE NA (8.6MG/50MG) TAB PO SCH (20:30)
[2017-01-29 20:48] VITALS: BP 121/72; RESP 20
[2017-01-30] VITALS: BP 123/68; RESP 20
[2017-01-30] MEDS: morphine 4 MG/ML VIAL IV PRN ×6 (02:35→23:16)
[2017-01-30] MEDS: ONDANSETRON 4 MG INJ IV PRN ×3 (02:39→23:15)
[2017-01-30] MEDS: LORAZEPAM 0.5 MG TAB PO PRN ×2 (03:18→12:35)
[2017-01-30] MEDS: GUAIFENESIN/CODEINE 5ML CUP PO PRN ×5 (03:18→21:30)
[2017-01-30] MEDS: PANTOPRAZOLE (EC) 40 MG TAB PO SCH (06:06)
[2017-01-30 07:37] LABS: BILIRUBIN,DIRECT 9.4 mg/dl (0.00-0.20); BILIRUBIN,INDIRECT 2.5 mg/dl (0-1.1); BILIRUBIN,TOTAL 11.9 mg/dl (0.2-1.3)
[2017-01-30 08:00] VITALS: BP 119/70; RESP 18
[2017-01-30] MEDS: FOLIC ACID 1 MG TAB PO SCH (08:21)
[2017-01-30] MEDS: METHYLPREDNISOLONE 4 MG TAB PO SCH (08:22)
[2017-01-30] MEDS: PROPRANOLOL 10 MG TAB PO SCH ×3 (08:22→21:27)
[2017-01-30] MEDS: FUROSEMIDE 20 MG INJ IV SCH (08:23)
--- NOTE | 2017-01-30 10:52 | PN ---
Date/Time of Note Date/Time of Note DATE: 01/30/17 TIME: 10:48 Assessment/Plan VTE Prophylaxis VTE Prophylaxis Intervention: ambulation Lines/Catheters IV [facility]from [facility] Saline Lock Urinary Cath still in place: No Assessment/Plan Assessment/Plan Assessment/Plan Acute alcoholic hepatitis, high discriminant function which denotes high mortality and benefit for steroid treatment Marked leukocytosis. Fairly common finding in patients with alcoholic hepatitis especially in treatment with steroids Chronic alcoholism Polysubstance abuse/poor compliance Edema bilateral acute kidney injury Plan: Continue present management Trend liver enzymes/white blood cell count request for abdominal ultrasound Abstinence critical to his recovery and lifespan Case was discussed with Dr Ospina Further orders will depend on clinical course Subjective 24 Hr Interval Summary Free Text/Dictation * Course reviewed with RN * Patient seen and examined * No complaints overnight Exam/Review of Systems Vital Signs Vitals Vital Signs Date Time Temp Pulse Resp B/P Pulse Ox O2 Delivery O2 Flow Rate FiO2 01/30/17 00:00 98.4 89 20 123/68 96 01/29/17 20:00 Nasal Cannula 2.0 Intake and Output 01/29/17 01/29/17 01/30/17 15:00 23:00 07:00 Intake Total 50 ml 1080 ml 3280 ml Output Total 1200 ml 1485 ml Balance 50 ml -120 ml 1795 ml Exam Constitutional: alert, oriented Psych: no complaints Head: atraumatic, normocephalic Eyes: icteric, nl conjunctiva Neck: non-tender, supple Respiratory: clear to auscultation, normal air movement Cardiovascular: nl pulses, regular rate and rhythm Gastrointestinal: nl liver, spleen, non-tender, soft Genitourinary - Male: other (scrotal edema) Extremities: pitting pedal edema 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: nl speech, nl strength Skin: nl turgor, No rash or lesions Results Result Diagram: 01/27/1752401/27/1725 Results 24 hrs Laboratory Tests Test 01/30/17 05:42 Total Bilirubin 11.9 H Direct Bilirubin 9.40 H Indirect Bilirubin 2.5 H Aspartate Amino Transf (AST/SGOT) 54 H Alanine Aminotransferase (ALT/SGPT) 39 Alkaline Phosphatase 338 H Medications Medications Current Medications Ondansetron HCl (Zofran Inj) 4 mg Q6H PRN IV NAUSEA AND/OR VOMITING Last administered on 01/30/17t 02:39; Admin Dose 4 MG; Start 01/19/17 at 09:00 Ergocalciferol (Drisdol) 50,000 unit Q7D PO Last administered on 01/27/17 09: 12; Admin Dose 50,000 UNIT; Start 01/20/17 at 09:00 Folic Acid (Folic Acid) 2 mg DAILY PO Last administered on 01/30/17 08:21; Admin Dose 2 MG; Start 01/20/17 at 09:00 Hydrocortisone (Anusol-Hc Supp) 25 mg TID PRN [place] HEMORROID PAIN/ITCHING; Start 01/19/17 at 11:30 Propranolol HCl (Inderal) 10 mg TID PO Last administered on 01/30/17 08:22; Admin Dose 10 MG; Start 01/19/17 at 13:00 Senna/Docusate Sodium (Senokot-S) 2 tab HS PO Last administered on 01/29/17 20 :30; Admin Dose 2 TAB; Start 01/19/17 at 21:00 Methylprednisolone (Medrol) 32 mg DAILY PO Last administered on 01/30/17 08:22 ; Admin Dose 32 MG; Start 01/19/17 at 13:00 Lorazepam (Ativan) 0.5 mg Q6H PRN PO ANXIETY Last administered on 01/30/17 03: 18; Admin Dose 0.5 MG; Start 01/20/17 at 17:00 Pantoprazole (Protonix Tab) 40 mg DAILY@06 PO Last administered on 01/30/17 06 :06; Admin Dose 40 MG; Start 01/23/17 at 06:00 Morphine Sulfate (morphine) 3 mg Q4H PRN IV PAIN LEVEL 7-10 Last administered on 01/30/17 10:29; Admin Dose 3 MG; Start 01/26/17 at 13:00 Guaifenesin/ Codeine Phosphate (Robitussin Ac Liquid Cup) 10 ml Q4H PRN PO COUGH Last administered on 01/30/17 08:24; Admin Dose 10 ML; Start 01/28/17 at 16:30 Furosemide (Lasix) 20 mg DAILY IV Last administered on 01/30/17 08:23; Admin Dose 20 MG; Start 01/29/17 at 09:00 CROW ALEJANDRO NP Jan 30, 2017 10:52
--- NOTE | 2017-01-30 14:42 | PN ---
DATE: 01/30/2017 INTERNAL MEDICINE FOLLOWUP SUBJECTIVE: Chart reviewed. The patient is currently on 2 liters nasal cannula, saturating 96%, an d does not appear in acute distress. PHYSICAL EXAMINATION: VITAL SIGNS: Blood pressure 119/70, pulse 80, respirations 18, temperature 98.8. HEENT: Pupils are equal and react to light. NECK: Supple. No JVD noted, no cervical adenopathy noted, no carotid bruits heard. LUNGS: Fair breath sounds bilaterally. CARDIOVASCULAR: S1, S2 normal. ABDOMEN: Soft, nontender. Positive bowel sounds. EXTREMITIES: No clubbing or cyanosis noted. NEUROLOGIC: No changes. LABORATORY: Bilirubin 11.9, alkaline phosphatase 338, AST 54, ALT 39. IMPRESSION: 1. Alcoholic hepatitis. 2. Leukocytosis secondary to alcoholic hepatitis and steroids. 3. History of alcohol abuse. 4. Coagulopathy. RECOMMENDATIONS: 1. Hematology followup. 2. Observe off antibiotics. 3. Consider tapering steroids. 4. Gastrointestinal followup. 5. Hopefully discharge planning soon. Dictated By: IAN REN MD, MA/GREER Conf#: [id number] DID#: [id number]
--- NOTE | 2017-01-30 15:15 | CONS ---
Date/Time of Note Date/Time of Note DATE: 01/30/17 TIME: 15:15 Assessment/Plan Assessment/Plan Chief Complaint/Hosp Course Patient with severe alcoholic hepatitis and pancreatitis now on steroids who presents with chronic leukocytosis #Leukocytosis - PT does not appear actively infected. pt has been admitted multiple times for alcoholic hepatitis and has presented with severe leukocytosis during those time. His current leukocytosis is likely secondary to the steroids and alcoholic hepatitis. Peripheral smear was reviewed and did not show evidence of acute leukemia or obvious myeloproliferative disorder. Flow cytometry does not show evidence of hematologic malignancy. There is evidence of a left shifted myeloid maturation and no abnormal B cell population -Hal 2 mutation analysis and BCR ABL were all ordered and are pending #Alcoholic Hepatitis -this is causing macrocytic anemia with dysmaturation of bone marrow. -continue supportive care per primary team Problems: Consultation Date/Type/Reason Admit Date/Time Jan 19, 2017 at 06:11 Initial Consult Date 01/25/17 Type of Consultation: Hematology Reason for Consultation leukocytosis Referring Provider: BRENNON RASMUSSEN CASE FILLER 24 HR Interval Summary Free Text/Dictation no acute overnight events Exam/Review of Systems Vital Signs Vitals Vital Signs Date Time Temp Pulse Resp B/P Pulse Ox O2 Delivery O2 Flow Rate FiO2 01/30/17 13:43 Nasal Cannula 2.0 01/30/17 08:00 98.8 80 18 119/70 96 Intake and Output 01/29/17 01/29/17 01/30/17 15:00 23:00 07:00 Intake Total 50 ml 1080 ml 3280 ml Output Total 1200 ml 1485 ml Balance 50 ml -120 ml 1795 ml Exam Constitutional: alert, oriented Psych: nl mood/affect, no complaints Head: normocephalic Eyes: nl conjunctiva ENMT: nl external ears & nose Neck: non-tender, supple Respiratory: clear to auscultation Cardiovascular: nl pulses, regular rate and rhythm Gastrointestinal: soft Musculoskeletal: nl extremities to inspection, nl gait and stance Results Result Diagram: 01/27/1752401/27/1725 Results 24 hrs Laboratory Tests Test 01/30/17 05:42 Total Bilirubin 11.9 H Direct Bilirubin 9.40 H Indirect Bilirubin 2.5 H Aspartate Amino Transf (AST/SGOT) 54 H Alanine Aminotransferase (ALT/SGPT) 39 Alkaline Phosphatase 338 H Medications Medications Current Medications Ondansetron HCl (Zofran Inj) 4 mg Q6H PRN IV NAUSEA AND/OR VOMITING Last administered on 01/30/17 14:49; Admin Dose 4 MG; Start 01/19/17 at 09:00 Ergocalciferol (Drisdol) 50,000 unit Q7D PO Last administered on 01/27/17 09: 12; Admin Dose 50,000 UNIT; Start 01/20/17 at 09:00 Folic Acid (Folic Acid) 2 mg DAILY PO Last administered on 01/30/17 08:21; Admin Dose 2 MG; Start 01/20/17 at 09:00 Hydrocortisone (Anusol-Hc Supp) 25 mg TID PRN [place] HEMORROID PAIN/ITCHING; Start 01/19/17 at 11:30 Propranolol HCl (Inderal) 10 mg TID PO Last administered on 01/30/17 12:35; Admin Dose 10 MG; Start 01/19/17 at 13:00 Senna/Docusate Sodium (Senokot-S) 2 tab HS PO Last administered on 01/29/17 20 :30; Admin Dose 2 TAB; Start 01/19/17 at 21:00 Methylprednisolone (Medrol) 32 mg DAILY PO Last administered on 01/30/17 08:22 ; Admin Dose 32 MG; Start 01/19/17 at 13:00 Lorazepam (Ativan) 0.5 mg Q6H PRN PO ANXIETY Last administered on 01/30/17 12: 35; Admin Dose 0.5 MG; Start 01/20/17 at 17:00 Pantoprazole (Protonix Tab) 40 mg DAILY@06 PO Last administered on 01/30/17 06 :06; Admin Dose 40 MG; Start 01/23/17 at 06:00 Morphine Sulfate (morphine) 3 mg Q4H PRN IV PAIN LEVEL 7-10 Last administered on 01/30/17 14:49; Admin Dose 3 MG; Start 01/26/17 at 13:00 Guaifenesin/ Codeine Phosphate (Robitussin Ac Liquid Cup) 10 ml Q4H PRN PO COUGH Last administered on 01/30/17 12:34; Admin Dose 10 ML; Start 01/28/17 at 16:30 Furosemide (Lasix) 20 mg DAILY IV Last administered on 01/30/17 08:23; Admin Dose 20 MG; Start 01/29/17 at 09:00 HARSHIL ALMONTE M.D. Jan 30, 2017 15:15
[2017-01-30 20:00] VITALS: BP 125/71; RESP 18
[2017-01-30] MEDS: SENNA/DOCUSATE NA (8.6MG/50MG) TAB PO SCH (21:27)
[2017-01-31] MEDS: LORAZEPAM 0.5 MG TAB PO PRN ×3 (01:37→19:49)
[2017-01-31] MEDS: GUAIFENESIN/CODEINE 5ML CUP PO PRN ×6 (01:37→20:52)
[2017-01-31] MEDS: morphine 4 MG/ML VIAL IV PRN ×4 (03:40→22:44)
[2017-01-31] MEDS: PANTOPRAZOLE (EC) 40 MG TAB PO SCH ×2 (05:49→08:30)
[2017-01-31] MEDS: ONDANSETRON 4 MG INJ IV PRN ×3 (05:49→22:49)
[2017-01-31 07:04] LABS: ADD SCAN DIFF NO
[2017-01-31 07:19] LABS: ABNORMAL IP MESSAGE 1; HEMATOCRIT 26.9 % (42.0-52.0); HEMOGLOBIN 9.1 g/dl (14.0-18.0); MEAN CORPUSCULAR HEMOGLOBIN 34.9 pg (29.0-33.0); MEAN CORPUSCULAR HGB CONC 33.8 g/dl (32.0-37.0); MEAN CORPUSCULAR VOLUME 103.1 fl (82.0-101.0); MEAN PLATELET VOLUME 11.5 fl (7.4-10.4); PLATELET COUNT 249 10^3/UL (140-415); RED BLOOD COUNT 2.61 10^6/ul (4.70-6.10); RED CELL DISTRIBUTION WIDTH 18.6 % (11.5-14.5); WHITE BLOOD COUNT 55.4 10^3/ul (4.8-10.8)
[2017-01-31 07:40] LABS: CREATININE 0.45 mg/dl (0.61-1.24); POTASSIUM 3.5 mmol/L (3.5-5.1)
[2017-01-31 08:00] VITALS: BP 117/58; PULSE 101; RESP 18
[2017-01-31] MEDS: METHYLPREDNISOLONE 4 MG TAB PO SCH (08:30)
[2017-01-31] MEDS: FOLIC ACID 1 MG TAB PO SCH (08:31)
[2017-01-31] MEDS: FUROSEMIDE 20 MG INJ IV SCH (08:31)
[2017-01-31] MEDS: PROPRANOLOL 10 MG TAB PO SCH ×3 (08:31→21:48)
--- NOTE | 2017-01-31 09:39 | PN ---
Date/Time of Note Date/Time of Note DATE: 01/31/17 TIME: 09:34 Assessment/Plan VTE Prophylaxis VTE Prophylaxis Intervention: ambulation Lines/Catheters IV [facility] Type (from [facility]): Saline Lock Urinary Cath still in place: No Assessment/Plan Assessment/Plan Acute alcoholic hepatitis, high discriminant function which denotes high mortality and benefit for steroid treatment Marked leukocytosis. Fairly common finding in patients with alcoholic hepatitis especially in treatment with steroids Chronic alcoholism Polysubstance abuse/poor compliance Edema bilateral acute kidney injury Plan: Continue present management Trend liver enzymes/white blood cell count Abstinence critical to his recovery and lifespan Case was discussed with Dr Ospina Further orders will depend on clinical course Subjective 24 Hr Interval Summary Free Text/Dictation * Course reviewed with RN * Patient seen and examined * Complains of abdominal distension * Alt/AST improving * Day 12 methylprednisolone Exam/Review of Systems Vital Signs Vitals Vital Signs Date Time Temp Pulse Resp B/P Pulse Ox O2 Delivery O2 Flow Rate FiO2 01/30/17 20:00 98.3 86 18 125/71 94 01/30/17 13:43 Nasal Cannula 2.0 Intake and Output 01/30/17 01/30/17 01/31/17 15:00 23:00 07:00 Intake Total 1000 ml 2280 ml Output Total 2200 ml Balance 1000 ml 80 ml Exam Constitutional: alert, oriented Eyes: icteric Neck: non-tender, supple Respiratory: clear to auscultation, normal air movement Cardiovascular: nl pulses, regular rate and rhythm Gastrointestinal: bowel sounds, distended, non-tender, soft Musculoskeletal: swelling Extremities: pitting pedal edema 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: nl speech, nl strength Skin: nl turgor Lymph: nl lymph nodes Results Result Diagram: 01/31/17 0545 01/31/17 0545 Results 24 hrs Laboratory Tests Test 01/31/17 05:45 White Blood Count 55.4 H Red Blood Count 2.61 L Hemoglobin 9.1 L Hematocrit 26.9 L Mean Corpuscular Volume 103.1 H Mean Corpuscular Hemoglobin 34.9 H Mean Corpuscular Hemoglobin Concent 33.8 Red Cell Distribution Width 18.6 H Platelet Count 249 Mean Platelet Volume 11.5 H Neutrophils % Eosinophils % Neutrophils # Eosinophils # Sodium Level 131 L Potassium Level 3.5 Chloride Level 97 Carbon Dioxide Level 26 Anion Gap 12 Blood Urea Nitrogen 9 Creatinine 0.45 L Glucose Level 84 Calcium Level 8.0 L Medications Medications Current Medications Ondansetron HCl (Zofran Inj) 4 mg Q6H PRN IV NAUSEA AND/OR VOMITING Last administered on 01/31/17 05:49; Admin Dose 4 MG; Start 01/19/17 at 09:00 Ergocalciferol (Drisdol) 50,000 unit Q7D PO Last administered on 01/27/17 09: 12; Admin Dose 50,000 UNIT; Start 01/20/17 at 09:00 Folic Acid (Folic Acid) 2 mg DAILY PO Last administered on 01/31/17 08:31; Admin Dose 2 MG; Start 01/20/17 at 09:00 Hydrocortisone (Anusol-Hc Supp) 25 mg TID PRN [place] HEMORROID PAIN/ITCHING; Start 01/19/17 at 11:30 Propranolol HCl (Inderal) 10 mg TID PO Last administered on 01/31/17 08:31; Admin Dose 10 MG; Start 01/19/17 at 13:00 Senna/Docusate Sodium (Senokot-S) 2 tab HS PO Last administered on 01/30/17 21 :27; Admin Dose 2 TAB; Start 01/19/17 at 21:00 Methylprednisolone (Medrol) 32 mg DAILY PO Last administered on 01/31/17 08:30 ; Admin Dose 32 MG; Start 01/19/17 at 13:00 Lorazepam (Ativan) 0.5 mg Q6H PRN PO ANXIETY Last administered on 01/31/17 01: 37; Admin Dose 0.5 MG; Start 01/20/17 at 17:00 Pantoprazole (Protonix Tab) 40 mg DAILY@06 PO Last administered on 01/31/17 08 :30; Admin Dose 40 MG; Start 01/23/17 at 06:00 Morphine Sulfate (morphine) 3 mg Q4H PRN IV PAIN LEVEL 7-10 Last administered on 01/31/17 08:32; Admin Dose 3 MG; Start 01/26/17 at 13:00 Guaifenesin/ Codeine Phosphate (Robitussin Ac Liquid Cup) 10 ml Q4H PRN PO COUGH Last administered on 01/31/17 05:49; Admin Dose 10 ML; Start 01/28/17 at 16:30 Furosemide (Lasix) 20 mg DAILY IV Last administered on 01/31/17 08:31; Admin Dose 20 MG; Start 01/29/17 at 09:00 CROW ALEJANDRO NP Jan 31, 2017 09:39
--- NOTE | 2017-01-31 09:57 | PN ---
Date/Time of Note Date/Time of Note DATE: 01/31/17 TIME: 09:53 Assessment/Plan VTE Prophylaxis VTE Prophylaxis Intervention: contraindicated Lines/Catheters IV [facility]from [facility] Saline Lock Urinary Cath still in place: No Assessment/Plan Problems: (1) Cellulitis of right groin Status: Acute Comment: Remains on treatment for this and progressing slowly (2) Leukocytosis Status: Acute Comment: This is partially due to reaction from infection and mostly from the high-dose steroids in the setting of the acute alcoholic hepatitis. Please note there is an end date in the order set for the steroids Qualifiers: Leukocytosis type: leukemoid reaction Qualified Code: D72.823 - Leukemoid reaction (3) Acute alcoholic hepatitis Status: Acute Comment: He is on steroids for this. (4) Splenomegaly Status: Chronic Comment: This is due to portal hypertension in the setting of the cirrhosis. Part of this is aggravated by the acute alcoholic hepatitis (5) Cirrhosis Status: Chronic Comment: Noted. We will try and diurese him. The diuretics will be adjusted to see if we can get slightly more bang for the boggs Qualifiers: Hepatic cirrhosis type: alcoholic cirrhosis Ascites presence: with ascites Qualified Code: K70.31 - Alcoholic cirrhosis of liver with ascites (6) Scrotal edema Status: Chronic Comment: This is due to his portal hypertension and cirrhosis with ascites (7) Ascites Status: Chronic Comment: Attempt treatment with increased diuretics Qualifiers: Ascites type: due to alcoholic cirrhosis Qualified Code: K70.31 - Ascites due to alcoholic cirrhosis Subjective 24 Hr Interval Summary Free Text/Dictation Patient lying in bed complains of pain. States he cannot walk due to scrotal edema. Constitutional: no complaints (Denies fevers chills or sweats) Respiratory: no complaints Cardiovascular: no complaints Gastrointestinal: no complaints Exam/Review of Systems Vital Signs Vitals Vital Signs Date Time Temp Pulse Resp B/P Pulse Ox O2 Delivery O2 Flow Rate FiO2 01/30/17 20:00 98.3 86 18 125/71 94 01/30/17 13:43 Nasal Cannula 2.0 Intake and Output 01/30/17 01/30/17 01/31/17 15:00 23:00 07:00 Intake Total 1000 ml 2280 ml Output Total 2200 ml Balance 1000 ml 80 ml Exam Constitutional: alert, oriented Neck: non-tender, supple Respiratory: clear to auscultation, normal air movement Cardiovascular: nl pulses, regular rate and rhythm Gastrointestinal: ascites (Positive shifting fluid wave), bowel sounds (Active bowel sounds), distended, hepatomegaly, soft, splenomegaly Genitourinary - Male: other (Marked scrotal edema) Results Result Diagram: 01/31/17 0545 01/31/17 0545 Results 24 hrs Laboratory Tests Test 01/31/17 05:45 White Blood Count 55.4 H Red Blood Count 2.61 L Hemoglobin 9.1 L Hematocrit 26.9 L Mean Corpuscular Volume 103.1 H Mean Corpuscular Hemoglobin 34.9 H Mean Corpuscular Hemoglobin Concent 33.8 Red Cell Distribution Width 18.6 H Platelet Count 249 Mean Platelet Volume 11.5 H Neutrophils % Eosinophils % Neutrophils # Eosinophils # Sodium Level 131 L Potassium Level 3.5 Chloride Level 97 Carbon Dioxide Level 26 Anion Gap 12 Blood Urea Nitrogen 9 Creatinine 0.45 L Glucose Level 84 Calcium Level 8.0 L Medications Medications Current Medications Ondansetron HCl (Zofran Inj) 4 mg Q6H PRN IV NAUSEA AND/OR VOMITING Last administered on 01/31/17 05:49; Admin Dose 4 MG; Start 01/19/17 at 09:00 Ergocalciferol (Drisdol) 50,000 unit Q7D PO Last administered on 01/27/17 09: 12; Admin Dose 50,000 UNIT; Start 01/20/17 at 09:00 Folic Acid (Folic Acid) 2 mg DAILY PO Last administered on 01/31/17 08:31; Admin Dose 2 MG; Start 01/20/17 at 09:00 Hydrocortisone (Anusol-Hc Supp) 25 mg TID PRN [place] HEMORROID PAIN/ITCHING; Start 01/19/17 at 11:30 Propranolol HCl (Inderal) 10 mg TID PO Last administered on 01/31/17 08:31; Admin Dose 10 MG; Start 01/19/17 at 13:00 Senna/Docusate Sodium (Senokot-S) 2 tab HS PO Last administered on 01/30/17 21 :27; Admin Dose 2 TAB; Start 01/19/17 at 21:00 Methylprednisolone (Medrol) 32 mg DAILY PO Last administered on 01/31/17 08:30 ; Admin Dose 32 MG; Start 01/19/17 at 13:00 Lorazepam (Ativan) 0.5 mg Q6H PRN PO ANXIETY Last administered on 01/31/17 01: 37; Admin Dose 0.5 MG; Start 01/20/17 at 17:00 Pantoprazole (Protonix Tab) 40 mg DAILY@06 PO Last administered on 01/31/17 08 :30; Admin Dose 40 MG; Start 01/23/17 at 06:00 Morphine Sulfate (morphine) 3 mg Q4H PRN IV PAIN LEVEL 7-10 Last administered on 01/31/17 08:32; Admin Dose 3 MG; Start 01/26/17 at 13:00 Guaifenesin/ Codeine Phosphate (Robitussin Ac Liquid Cup) 10 ml Q4H PRN PO COUGH Last administered on 01/31/17 05:49; Admin Dose 10 ML; Start 01/28/17 at 16:30 Furosemide (Lasix) 20 mg DAILY IV Last administered on 01/31/17 08:31; Admin Dose 20 MG; Start 01/29/17 at 09:00 ARNULFO LASSITER MD Jan 31, 2017 09:56
[2017-01-31] MEDS ORDERED: SPIRONOLACTONE 25 MG TAB PO SCH (10:00)
[2017-01-31] MEDS: FUROSEMIDE 40 MG TAB PO SCH (10:09)
[2017-01-31] MEDS: THIAMINE 100 MG TAB PO SCH (10:09)
[2017-01-31] MEDS ORDERED: CYANOCOBALAMIN 1000 MCG INJ IM ONE (11:00)
[2017-01-31 11:30] LABS: ANISOCYTOSIS 1+; EOSINOPHILS # 1.1 10^3/ul (0.0-0.5); LYMPHOCYTES # 1.1 10^3/ul (0.8-2.9); MONOCYTE # 0.6 10^3/ul (0.3-0.9); NEUTROPHIL # 42.7 10^3/ul (1.6-7.5)
[2017-01-31 11:31] LABS: HYPOCHROMASIA 1+
--- NOTE | 2017-01-31 16:27 | RADRPT ---
PROCEDURE: Complete abdominal ultrasound. CLINICAL INDICATION: Abdominal pain TECHNIQUE: Kendrick scale and color doppler ultrasound images of the abdomen. COMPARISON: CT abdomen pelvis 01/19/2017 FINDINGS: Pancreas: Visualized portions appear of normal echogenicity, no focal lesions. Liver: Morphology: Enlarged measuring 22.9 cm. No evidence of contour nodularity. Echogenicity: Mildly increased echogenicity of the liver suggestive of hepatic steatosis. Focal lesions: None. Main portal vein: Patent with hepatopetal flow. Biliary System: Normal appearing gallbladder wall. No gallstones seen. No intrahepatic biliary dilatation. Common bile duct diameter: 4.6 mm Kidneys: Right length: 13.5 cm. Right renal cortical thickness is preserved. Left length: 13.1 cm. Left renal cortical thickness is preserved. Normal echogenicity. No hydronephrosis. No renal calculi. No focal renal lesions. Spleen: Mildly enlarged measuring 15.3 cm. No free fluid identified. Normal caliber of the partially visualized aorta. IMPRESSION: Enlarged echogenic liver suggestive of hepatic steatosis. Normal gallbladder without gallstones. Splenomegaly. RPTAT: AADD .Louie Boyd MD, MD Date Time Electronically viewed and signed by .Louie Boyd MD, on 01/31/2017 16:27 .B/
[2017-01-31 20:00] VITALS: BP 106/56; RESP 18
[2017-01-31] MEDS: SENNA/DOCUSATE NA (8.6MG/50MG) TAB PO SCH (20:52)
[2017-01-31 21:47] VITALS: BP 109/54; PULSE 88; RESP 18
[2017-01-31 22:44] VITALS: BP 113/66; PULSE 87
[2017-02-01] MEDS: PANTOPRAZOLE (EC) 40 MG TAB PO SCH (05:30)
[2017-02-01] MEDS: morphine 4 MG/ML VIAL IV PRN ×4 (05:34→18:43)
[2017-02-01] MEDS: ONDANSETRON 4 MG INJ IV PRN ×2 (05:39→14:15)
[2017-02-01 06:10] LABS: ADD SCAN DIFF NO
[2017-02-01 06:13] LABS: ABNORMAL IP MESSAGE 1; HEMATOCRIT 26.5 % (42.0-52.0); HEMOGLOBIN 8.9 g/dl (14.0-18.0); MEAN CORPUSCULAR HEMOGLOBIN 34.4 pg (29.0-33.0); MEAN CORPUSCULAR HGB CONC 33.6 g/dl (32.0-37.0); MEAN CORPUSCULAR VOLUME 102.3 fl (82.0-101.0); MEAN PLATELET VOLUME 11.2 fl (7.4-10.4); PLATELET COUNT 229 10^3/UL (140-415); RED BLOOD COUNT 2.59 10^6/ul (4.70-6.10); RED CELL DISTRIBUTION WIDTH 18.5 % (11.5-14.5)
[2017-02-01] MEDS: GUAIFENESIN/CODEINE 5ML CUP PO PRN ×4 (06:27→20:18)
[2017-02-01 06:56] LABS: CALCIUM 7.8 mg/dl (8.4-10.2); CREATININE 0.46 mg/dl (0.61-1.24); POTASSIUM 3.4 mmol/L (3.5-5.1)
[2017-02-01 07:51] VITALS: BP 101/57; RESP 17
[2017-02-01] MEDS: LORAZEPAM 0.5 MG TAB PO PRN ×3 (08:22→22:30)
[2017-02-01] MEDS: PROPRANOLOL 10 MG TAB PO SCH ×3 (08:51→20:23)
[2017-02-01] MEDS ORDERED: POTASSIUM CHLORIDE (SR) 20 MEQ TAB PO STA (08:55)
[2017-02-01] MEDS: METHYLPREDNISOLONE 4 MG TAB PO SCH (09:03)
[2017-02-01] MEDS: FUROSEMIDE 40 MG TAB PO SCH (09:03)
[2017-02-01] MEDS: FOLIC ACID 1 MG TAB PO SCH (09:04)
--- NOTE | 2017-02-01 09:07 | PN ---
Date/Time of Note Date/Time of Note DATE: 02/01/17 TIME: 09:04 Assessment/Plan VTE Prophylaxis VTE Prophylaxis Intervention: heparin Lines/Catheters IV C[facility]ter Type (from [facility]): Saline Lock Urinary Cath still in place: No Assessment/Plan Problems: (1) Alcoholic liver failure Status: Chronic Comment: He remains on steroid therapy. He may be slightly better. I will check his full chemistry panel tomorrow to see where we are with the liver chemistries. In the meantime support and observation (2) Splenomegaly Status: Chronic Comment: Noted. This is part of the portal hypertension. As a beta-clifford is on propanolol 10 mg 3 times daily. For simplicity I am curious as to GIs opinion to switch him over to nadolol which should be more compliant with as an outpatient (3) Acute alcoholic hepatitis Status: Acute Comment: Noted. Remains on high-dose steroids. He will be on full dose for 28 days and then a tapering dose. The taper to be determined and written out by gastroenterology (4) Cirrhosis Status: Chronic Comment: Noted. Consider adjustment of beta-blockade Qualifiers: Hepatic cirrhosis type: alcoholic cirrhosis Ascites presence: with ascites Qualified Code: K70.31 - Alcoholic cirrhosis of liver with ascites (5) Scrotal edema Status: Chronic Comment: Further diuresis and process (6) Ascites Status: Chronic Comment: Continue diuresis. Adjust medication Qualifiers: Ascites type: due to alcoholic cirrhosis Qualified Code: K70.31 - Ascites due to alcoholic cirrhosis (7) Leukocytosis Status: Acute Comment: Due to the acute alcoholic hepatitis on top of the very high-dose steroids. Fortunately he is not developing significant hyperglycemia Qualifiers: Leukocytosis type: leukemoid reaction Qualified Code: D72.823 - Leukemoid reaction Subjective 24 Hr Interval Summary Free Text/Dictation Patient more alert and vibrant today Constitutional: no complaints (No fevers chills or sweats) Eyes: no complaints Respiratory: no complaints Cardiovascular: no complaints Gastrointestinal: no complaints Genitourinary: other (Still with marked scrotal edema) Exam/Review of Systems Vital Signs Vitals Vital Signs Date Time Temp Pulse Resp B/P Pulse Ox O2 Delivery O2 Flow Rate FiO2 02/01/17 07:51 98.7 89 17 101/57 93 01/30/17 13:43 Nasal Cannula 2.0 Intake and Output 01/31/17 01/31/17 02/01/17 15:00 23:00 07:00 Intake Total 800 ml 520 ml Output Total 500 ml Balance 800 ml 20 ml Exam Constitutional: alert, oriented Neck: non-tender, supple Respiratory: clear to auscultation, normal air movement Cardiovascular: nl pulses, regular rate and rhythm Results Result Diagram: 02/01/17 0520 02/01/17 0520 Results 24 hrs Laboratory Tests Test 02/01/17 05:20 White Blood Count 58.0 H Red Blood Count 2.59 L Hemoglobin 8.9 L Hematocrit 26.5 L Mean Corpuscular Volume 102.3 H Mean Corpuscular Hemoglobin 34.4 H Mean Corpuscular Hemoglobin Concent 33.6 Red Cell Distribution Width 18.5 H Platelet Count 229 Mean Platelet Volume 11.2 H Neutrophils % Eosinophils % Neutrophils # Eosinophils # Sodium Level 131 L Potassium Level 3.4 L Chloride Level 96 L Carbon Dioxide Level 27 Anion Gap 11 Blood Urea Nitrogen 11 Creatinine 0.46 L Glucose Level 90 Calcium Level 7.8 L Medications Medications Current Medications Ondansetron HCl (Zofran Inj) 4 mg Q6H PRN IV NAUSEA AND/OR VOMITING Last administered on 02/01/17 05:39; Admin Dose 4 MG; Start 01/19/17 at 09:00 Ergocalciferol (Drisdol) 50,000 unit Q7D PO Last administered on 01/27/17 09: 12; Admin Dose 50,000 UNIT; Start 01/20/17 at 09:00 Folic Acid (Folic Acid) 2 mg DAILY PO Last administered on 01/31/17 08:31; Admin Dose 2 MG; Start 01/20/17 at 09:00 Hydrocortisone (Anusol-Hc Supp) 25 mg TID PRN [place] HEMORROID PAIN/ITCHING; Start 01/19/17 at 11:30 Propranolol HCl (Inderal) 10 mg TID PO Last administered on 01/31/17 21:48; Admin Dose 10 MG; Start 01/19/17 at 13:00 Senna/Docusate Sodium (Senokot-S) 2 tab HS PO Last administered on 01/30/17 21 :27; Admin Dose 2 TAB; Start 01/19/17 at 21:00 Methylprednisolone (Medrol) 32 mg DAILY PO Last administered on 01/31/17 08:30 ; Admin Dose 32 MG; Start 01/19/17 at 13:00; Stop 02/16/17 at 12:59 Lorazepam (Ativan) 0.5 mg Q6H PRN PO ANXIETY Last administered on 02/01/17 08: 22; Admin Dose 0.5 MG; Start 01/20/17 at 17:00 Morphine Sulfate (morphine) 3 mg Q4H PRN IV PAIN LEVEL 7-10 Last administered on 02/01/17 05:34; Admin Dose 3 MG; Start 01/26/17 at 13:00 Guaifenesin/ Codeine Phosphate (Robitussin Ac Liquid Cup) 10 ml Q4H PRN PO COUGH Last administered on 02/01/17 06:27; Admin Dose 10 ML; Start 01/28/17 at 16:30 Thiamine HCl (Vitamin B1) 100 mg DAILY PO Last administered on 01/31/17 10:09 ; Admin Dose 100 MG; Start 01/31/17 at 10:00; Stop 02/07/17 at 09:59 Furosemide (Lasix) 40 mg DAILY PO Last administered on 01/31/17 10:09; Admin Dose 40 MG; Start 01/31/17 at 10:00 Pantoprazole (Protonix Tab) 40 mg DAILY@06 PO Last administered on 02/01/17 05 :30; Admin Dose 40 MG; Start 02/01/17 at 06:00 Spironolactone (Aldactone) 50 mg DAILY PO ; Start 02/01/17 at 09:00; Status ARNULFO HOUSTON MD Feb 01, 2017 09:07
[2017-02-01] MEDS ORDERED: FUROSEMIDE 40 MG INJ IV ONE (09:30)
[2017-02-01] MEDS: THIAMINE 100 MG TAB PO SCH (09:39)
[2017-02-01] MEDS: SPIRONOLACTONE 50 MG TAB PO SCH ×2 (10:00→12:35)
[2017-02-01 10:59] LABS: EOSINOPHILS # 0.6 10^3/ul (0.0-0.5); LYMPHOCYTES # 1.2 10^3/ul (0.8-2.9); MONOCYTE # 1.2 10^3/ul (0.3-0.9); NEUTROPHIL # 48.1 10^3/ul (1.6-7.5)
--- NOTE | 2017-02-01 11:11 | PN ---
Date/Time of Note Date/Time of Note DATE: 02/01/17 TIME: 11:08 Assessment/Plan VTE Prophylaxis VTE Prophylaxis Intervention: ambulation Lines/Catheters [facility] Saline Lock Urinary Cath still in place: No Assessment/Plan Assessment/Plan Acute alcoholic hepatitis, high discriminant function which denotes high mortality and benefit for steroid treatment Marked leukocytosis. Fairly common finding in patients with alcoholic hepatitis especially in treatment with steroids Chronic alcoholism Polysubstance abuse/poor compliance Edema bilateral acute kidney injury Elevated WBC hemaonco on board Plan: Continue present management Trend liver enzymes/white blood cell count Abstinence critical to his recovery and lifespan Case was discussed with Dr Ospina Further orders will depend on clinical course Subjective 24 Hr Interval Summary Free Text/Dictation * Course reviewed with RN * Patient seen and examined * No abdominal pain * WBC 56.2 * Ultrasound abdomen Enlarged echogenic liver suggestive of hepatic steatosis. Normal gallbladder without gallstones. Splenomegaly. Exam/Review of Systems Vital Signs Vitals Vital Signs Date Time Temp Pulse Resp B/P Pulse Ox O2 Delivery O2 Flow Rate FiO2 02/01/17 07:51 98.7 89 17 101/57 93 01/30/17 13:43 Nasal Cannula 2.0 Intake and Output 01/31/17 01/31/17 02/01/17 15:00 23:00 07:00 Intake Total 800 ml 520 ml Output Total 500 ml Balance 800 ml 20 ml Exam Constitutional: alert, oriented Eyes: icteric ENMT: mucosa pink and moist, nl external ears & nose Neck: non-tender, supple Respiratory: clear to auscultation, normal air movement Cardiovascular: nl pulses, regular rate and rhythm Gastrointestinal: bowel sounds, distended, non-tender, soft Musculoskeletal: swelling Extremities: edema 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: nl mental status, nl speech Skin: nl turgor, No rash or lesions Lymph: nl lymph nodes Results Result Diagram: 02/01/17 0520 02/01/17 0520 Results 24 hrs Laboratory Tests Test 02/01/17 05:20 White Blood Count 58.0 H Red Blood Count 2.59 L Hemoglobin 8.9 L Hematocrit 26.5 L Mean Corpuscular Volume 102.3 H Mean Corpuscular Hemoglobin 34.4 H Mean Corpuscular Hemoglobin Concent 33.6 Red Cell Distribution Width 18.5 H Platelet Count 229 Mean Platelet Volume 11.2 H Neutrophils % 83.0 H Band Neutrophils % 12.0 H Lymphocytes % 2.0 L Monocytes % 2.0 Eosinophils % 1.0 Neutrophils # 48.1 H Lymphocytes # 1.2 Monocytes # 1.2 H Eosinophils # 0.6 H Sodium Level 131 L Potassium Level 3.4 L Chloride Level 96 L Carbon Dioxide Level 27 Anion Gap 11 Blood Urea Nitrogen 11 Creatinine 0.46 L Glucose Level 90 Calcium Level 7.8 L Medications Medications Current Medications Ondansetron HCl (Zofran Inj) 4 mg Q6H PRN IV NAUSEA AND/OR VOMITING Last administered on 02/01/17 05:39; Admin Dose 4 MG; Start 01/19/17 at 09:00 Ergocalciferol (Drisdol) 50,000 unit Q7D PO Last administered on 01/27/17 09: 12; Admin Dose 50,000 UNIT; Start 01/20/17 at 09:00 Folic Acid (Folic Acid) 2 mg DAILY PO Last administered on 02/01/17 09:04; Admin Dose 2 MG; Start 01/20/17 at 09:00 Hydrocortisone (Anusol-Hc Supp) 25 mg TID PRN [place] HEMORROID PAIN/ITCHING; Start 01/19/17 at 11:30 Propranolol HCl (Inderal) 10 mg TID PO Last administered on 01/31/17 21:48; Admin Dose 10 MG; Start 01/19/17 at 13:00 Senna/Docusate Sodium (Senokot-S) 2 tab HS PO Last administered on 01/30/17 21 :27; Admin Dose 2 TAB; Start 01/19/17 at 21:00 Methylprednisolone (Medrol) 32 mg DAILY PO Last administered on 02/01/17 09:03 ; Admin Dose 32 MG; Start 01/19/17 at 13:00; Stop 02/16/17 at 12:59 Lorazepam (Ativan) 0.5 mg Q6H PRN PO ANXIETY Last administered on 02/01/17 08: 22; Admin Dose 0.5 MG; Start 01/20/17 at 17:00 Morphine Sulfate (morphine) 3 mg Q4H PRN IV PAIN LEVEL 7-10 Last administered on 02/01/17 09:40; Admin Dose 3 MG; Start 01/26/17 at 13:00 Guaifenesin/ Codeine Phosphate (Robitussin Ac Liquid Cup) 10 ml Q4H PRN PO COUGH Last administered on 02/01/17 10:40; Admin Dose 10 ML; Start 01/28/17 at 16:30 Thiamine HCl (Vitamin B1) 100 mg DAILY PO Last administered on 02/01/17 09:39 ; Admin Dose 100 MG; Start 01/31/17 at 10:00; Stop 02/07/17 at 09:59 Furosemide (Lasix) 40 mg DAILY PO Last administered on 02/01/17 09:03; Admin Dose 40 MG; Start 01/31/17 at 10:00 Pantoprazole (Protonix Tab) 40 mg DAILY@06 PO Last administered on 02/01/17 05 :30; Admin Dose 40 MG; Start 02/01/17 at 06:00 Spironolactone (Aldactone) 50 mg DAILY PO ; Start 02/01/17 at 10:00 CROW ALEJANDRO NP Feb 01, 2017 11:11
[2017-02-01 20:14] VITALS: BP 129/72; RESP 18
[2017-02-01] MEDS: SENNA/DOCUSATE NA (8.6MG/50MG) TAB PO SCH (20:23)
[2017-02-02] MEDS: morphine 4 MG/ML VIAL IV PRN ×6 (00:12→22:37)
[2017-02-02] MEDS: ONDANSETRON 4 MG INJ IV PRN ×4 (00:12→22:36)
[2017-02-02] MEDS: GUAIFENESIN/CODEINE 5ML CUP PO PRN ×5 (01:21→20:41)
[2017-02-02] MEDS: PANTOPRAZOLE (EC) 40 MG TAB PO SCH (05:10)
[2017-02-02 05:18] LABS: ADD SCAN DIFF NO
[2017-02-02 05:35] LABS: ABNORMAL IP MESSAGE 1; HEMATOCRIT 25.7 % (42.0-52.0); HEMOGLOBIN 8.7 g/dl (14.0-18.0); MEAN CORPUSCULAR HEMOGLOBIN 34.3 pg (29.0-33.0); MEAN CORPUSCULAR HGB CONC 33.9 g/dl (32.0-37.0); MEAN CORPUSCULAR VOLUME 101.2 fl (82.0-101.0); MEAN PLATELET VOLUME 11.3 fl (7.4-10.4); PLATELET COUNT 218 10^3/UL (140-415); RED BLOOD COUNT 2.54 10^6/ul (4.70-6.10); RED CELL DISTRIBUTION WIDTH 18.7 % (11.5-14.5); WHITE BLOOD COUNT 57.6 10^3/ul (4.8-10.8)
[2017-02-02 05:48] LABS: ALBUMIN 2.9 g/dl (3.3-4.9); ALBUMIN/GLOBULIN RATIO 1.07; BILIRUBIN,DIRECT 9.4 mg/dl (0.00-0.20); BILIRUBIN,INDIRECT 2.3 mg/dl (0-1.1); BILIRUBIN,TOTAL 11.7 mg/dl (0.2-1.3); CALCIUM 7.8 mg/dl (8.4-10.2); CREATININE 0.46 mg/dl (0.61-1.24); POTASSIUM 3.6 mmol/L (3.5-5.1); TOTAL PROTEIN 5.6 g/dl (6.1-8.1)
[2017-02-02] MEDS: LORAZEPAM 0.5 MG TAB PO PRN ×3 (06:11→20:39)
[2017-02-02 07:41] LABS: ANISOCYTOSIS 2+; LYMPHOCYTES # 1.7 10^3/ul (0.8-2.9); MONOCYTE # 1.7 10^3/ul (0.3-0.9); NEUTROPHIL # 50.7 10^3/ul (1.6-7.5)
[2017-02-02 07:42] LABS: PLATELET ESTIMATE PLT APPEAR ADEQUATE; POLYCHROMASIA 2+
[2017-02-02] MEDS: FOLIC ACID 1 MG TAB PO SCH (08:11)
[2017-02-02] MEDS: METHYLPREDNISOLONE 4 MG TAB PO SCH (08:11)
[2017-02-02] MEDS: THIAMINE 100 MG TAB PO SCH (08:11)
[2017-02-02] MEDS: FUROSEMIDE 40 MG TAB PO SCH (08:12)
[2017-02-02] MEDS: SPIRONOLACTONE 50 MG TAB PO SCH (08:13)
[2017-02-02] MEDS: PROPRANOLOL 10 MG TAB PO SCH ×3 (08:13→22:31)
[2017-02-02 08:19] VITALS: BP 110/69; RESP 18
[2017-02-02 12:52] VITALS: BP 103/56; PULSE 89
--- NOTE | 2017-02-02 12:57 | PN ---
Date/Time of Note Date/Time of Note DATE: 02/02/17 TIME: 12:54 Assessment/Plan VTE Prophylaxis VTE Prophylaxis Intervention: SCD's Lines/Catheters [facility] Saline Lock Urinary Cath still in place: No Assessment/Plan Chief Complaint/Hosp Course 1. Abdominal pain. Etiology could be from underlying alcoholic hepatitis. CT scan of the abdomen and pelvis showed hepatosplenomegaly and small to moderate ascites with ill-defined consolidation in the anterior segment of the right upper lobe. 2. Transaminitis with hyperbilirubinemia. Most probably secondary to underlying alcoholic liver disease. Hepatotoxic drugs will be avoided on this patient. 3. Alcoholic hepatitis. The patient will be continued on steroids as per recommendations of gastroenterology. Gastroenterology following. 4. Alcohol abuse. The patient denies any recent history of alcohol abuse. The patient will be reinforced to avoid using any alcohol. 5. Coagulopathy. Most probably secondary to underlying acute alcoholic liver disease. The patient will be monitored closely for any bleeding. 6. Persistent leukocytosis. Hematology evaluation ongoing. 7. Hyponatremia. Monitor. 8. Fluids, electrolytes, and nutrition. Regular diet as tolerated. 9. DVT prophylaxis. Contraindicated. 10. Gastrointestinal prophylaxis. Proton pump inhibitors. 11. Plan. Await further hematology recommendations. Case discussed with Dr. Jenkins. Problems: Subjective 24 Hr Interval Summary Free Text/Dictation Patient remains afebrile. WBC still elevated. Exam/Review of Systems Vital Signs Vitals Vital Signs Date Time Temp Pulse Resp B/P Pulse Ox O2 Delivery O2 Flow Rate FiO2 02/02/17 12:52 89 103/56 02/02/17 08:19 98.7 18 96 01/30/17 13:43 Nasal Cannula 2.0 Intake and Output 02/01/17 02/01/17 02/02/17 15:00 23:00 07:00 Intake Total 700 ml 800 ml Output Total 1850 ml 1950 ml Balance -1150 ml -1150 ml Exam GENERAL: This is an obese male lying in bed in no apparent distress. HEENT: Head normocephalic and atraumatic. Eyes: Icteric sclerae. Conjunctivae clear. ENT: Nasal septum midline. Oral mucosa is dry. NECK: Supple. No JVD noticed. RESPIRATORY: Bilateral diminished breath sounds. No adventitious breath sounds heard. No use of accessory muscles of respiration. CARDIAC: Regular rate and S2. ABDOMEN: Diffuse tenderness specifically in the right upper quadrant, epigastric and left upper quadrant. No rebound tenderness or guarding. GENITOURINARY: Deferred. EXTREMITIES: No cyanosis, no clubbing. Bilateral lower extremity 1+ pitting edema. Peripheral pulses palpable. NEUROLOGIC: The patient is awake, alert and oriented. Cranial nerves are grossly intact. SKIN: Generalized icterus. Results Result Diagram: 02/02/17 0420 02/02/17 0420 Results 24 hrs Laboratory Tests Test 02/02/17 04:20 White Blood Count 57.6 H Red Blood Count 2.54 L Hemoglobin 8.7 L Hematocrit 25.7 L Mean Corpuscular Volume 101.2 H Mean Corpuscular Hemoglobin 34.3 H Mean Corpuscular Hemoglobin Concent 33.9 Red Cell Distribution Width 18.7 H Platelet Count 218 Mean Platelet Volume 11.3 H Neutrophils % 88.0 H Band Neutrophils % 6.0 H Lymphocytes % 3.0 L Monocytes % 3.0 Eosinophils % Neutrophils # 50.7 H Lymphocytes # 1.7 Monocytes # 1.7 H Eosinophils # Platelet Estimate PLT APPEAR ADEQUATE Large Platelets FEW Polychromasia 2+ Anisocytosis 2+ Macrocytosis 2+ Sodium Level 130 L Potassium Level 3.6 Chloride Level 95 L Carbon Dioxide Level 27 Anion Gap 12 Blood Urea Nitrogen 11 Creatinine 0.46 L Glucose Level 97 Calcium Level 7.8 L Total Bilirubin 11.7 H Direct Bilirubin 9.40 H Indirect Bilirubin 2.3 H Aspartate Amino Transf (AST/SGOT) 39 Alanine Aminotransferase (ALT/SGPT) 38 Alkaline Phosphatase 299 H Total Protein 5.6 L Albumin 2.9 L Globulin 2.70 Albumin/Globulin Ratio 1.07 Medications Medications Current Medications Ondansetron HCl (Zofran Inj) 4 mg Q6H PRN IV NAUSEA AND/OR VOMITING Last administered on 02/02/17 06:12; Admin Dose 4 MG; Start 01/19/17 at 09:00 Ergocalciferol (Drisdol) 50,000 unit Q7D PO Last administered on 01/27/17 09: 12; Admin Dose 50,000 UNIT; Start 01/20/17 at 09:00 Folic Acid (Folic Acid) 2 mg DAILY PO Last administered on 02/02/17 08:11; Admin Dose 2 MG; Start 01/20/17 at 09:00 Hydrocortisone (Anusol-Hc Supp) 25 mg TID PRN [place] HEMORROID PAIN/ITCHING; Start 01/19/17 at 11:30 Propranolol HCl (Inderal) 10 mg TID PO Last administered on 02/02/17 08:13; Admin Dose 10 MG; Start 01/19/17 at 13:00 Senna/Docusate Sodium (Senokot-S) 2 tab HS PO Last administered on 02/01/17 20 :23; Admin Dose 2 TAB; Start 01/19/17 at 21:00 Methylprednisolone (Medrol) 32 mg DAILY PO Last administered on 02/02/17 08:11 ; Admin Dose 32 MG; Start 01/19/17 at 13:00; Stop 02/16/17 at 12:59 Lorazepam (Ativan) 0.5 mg Q6H PRN PO ANXIETY Last administered on 02/02/17 06: 11; Admin Dose 0.5 MG; Start 01/20/17 at 17:00 Morphine Sulfate (morphine) 3 mg Q4H PRN IV PAIN LEVEL 7-10 Last administered on 02/02/17 09:12; Admin Dose 3 MG; Start 01/26/17 at 13:00 Guaifenesin/ Codeine Phosphate (Robitussin Ac Liquid Cup) 10 ml Q4H PRN PO COUGH Last administered on 02/02/17 09:22; Admin Dose 10 ML; Start 01/28/17 at 16:30 Thiamine HCl (Vitamin B1) 100 mg DAILY PO Last administered on 02/02/17 08:11 ; Admin Dose 100 MG; Start 01/31/17 at 10:00; Stop 02/07/17 at 09:59 Furosemide (Lasix) 40 mg DAILY PO Last administered on 02/02/17 08:12; Admin Dose 40 MG; Start 01/31/17 at 10:00 Pantoprazole (Protonix Tab) 40 mg DAILY@06 PO Last administered on 02/02/17 05 :10; Admin Dose 40 MG; Start 02/01/17 at 06:00 Spironolactone (Aldactone) 50 mg DAILY PO Last administered on 02/02/17 08:13 ; Admin Dose 50 MG; Start 02/01/17 at 10:00 BRENNON RASMUSSEN NP Feb 02, 2017 12:57 BRENNON RASMUSSEN NP Feb 02, 2017 12:57
--- NOTE | 2017-02-02 15:45 | CONS ---
Date/Time of Note Date/Time of Note DATE: 02/02/17 TIME: 15:43 Assessment/Plan Assessment/Plan Chief Complaint/Hosp Course Patient with severe alcoholic hepatitis and pancreatitis now on steroids who presents with chronic leukocytosis #Leukocytosis - PT does not appear actively infected. pt has been admitted multiple times for alcoholic hepatitis and has presented with severe leukocytosis during those time. His current leukocytosis is likely secondary to the steroids and alcoholic hepatitis. Peripheral smear was reviewed and did not show evidence of acute leukemia or obvious myeloproliferative disorder. Flow cytometry does not show evidence of hematologic malignancy. There is evidence of a left shifted myeloid maturation and no abnormal B cell population. JABARI 2 and BCR ABL are both negative -elevated WBC is NOT secondary to underlying malignancy and only secondary to underlying inflammation #Alcoholic Hepatitis -this is causing macrocytic anemia with dysmaturation of bone marrow. -continue supportive care per primary team Problems: Consultation Date/Type/Reason Admit Date/Time Jan 19, 2017 at 06:11 Initial Consult Date 01/25/17 Type of Consultation: Hematology Reason for Consultation leukocytosis Referring Provider: BRENNON RASMUSSEN [employer] 24 HR Interval Summary Free Text/Dictation pt still with a large amount of ascites. states he can barely walk Exam/Review of Systems Vital Signs Vitals Vital Signs Date Time Temp Pulse Resp B/P Pulse Ox O2 Delivery O2 Flow Rate FiO2 02/02/17 12:52 89 103/56 02/02/17 08:19 98.7 18 96 01/30/17 13:43 Nasal Cannula 2.0 Intake and Output 02/01/17 02/01/17 02/02/17 15:00 23:00 07:00 Intake Total 700 ml 800 ml Output Total 1850 ml 1950 ml Balance -1150 ml -1150 ml Exam Constitutional: alert, oriented Psych: no complaints Head: atraumatic, normocephalic ENMT: nl external ears & nose Respiratory: clear to auscultation, normal air movement Gastrointestinal: ascites Musculoskeletal: nl extremities to inspection Extremities: normal pulses Results Result Diagram: 02/02/17 0420 02/02/17 0420 Results 24 hrs Laboratory Tests Test 02/02/17 04:20 White Blood Count 57.6 H Red Blood Count 2.54 L Hemoglobin 8.7 L Hematocrit 25.7 L Mean Corpuscular Volume 101.2 H Mean Corpuscular Hemoglobin 34.3 H Mean Corpuscular Hemoglobin Concent 33.9 Red Cell Distribution Width 18.7 H Platelet Count 218 Mean Platelet Volume 11.3 H Neutrophils % 88.0 H Band Neutrophils % 6.0 H Lymphocytes % 3.0 L Monocytes % 3.0 Eosinophils % Neutrophils # 50.7 H Lymphocytes # 1.7 Monocytes # 1.7 H Eosinophils # Platelet Estimate PLT APPEAR ADEQUATE Large Platelets FEW Polychromasia 2+ Anisocytosis 2+ Macrocytosis 2+ Sodium Level 130 L Potassium Level 3.6 Chloride Level 95 L Carbon Dioxide Level 27 Anion Gap 12 Blood Urea Nitrogen 11 Creatinine 0.46 L Glucose Level 97 Calcium Level 7.8 L Total Bilirubin 11.7 H Direct Bilirubin 9.40 H Indirect Bilirubin 2.3 H Aspartate Amino Transf (AST/SGOT) 39 Alanine Aminotransferase (ALT/SGPT) 38 Alkaline Phosphatase 299 H Total Protein 5.6 L Albumin 2.9 L Globulin 2.70 Albumin/Globulin Ratio 1.07 Medications Medications Current Medications Ondansetron HCl (Zofran Inj) 4 mg Q6H PRN IV NAUSEA AND/OR VOMITING Last administered on 02/02/17 13:18; Admin Dose 4 MG; Start 01/19/17 at 09:00 Ergocalciferol (Drisdol) 50,000 unit Q7D PO Last administered on 01/27/17 09: 12; Admin Dose 50,000 UNIT; Start 01/20/17 at 09:00 Folic Acid (Folic Acid) 2 mg DAILY PO Last administered on 02/02/17 08:11; Admin Dose 2 MG; Start 01/20/17 at 09:00 Hydrocortisone (Anusol-Hc Supp) 25 mg TID PRN [place] HEMORROID PAIN/ITCHING; Start 01/19/17 at 11:30 Propranolol HCl (Inderal) 10 mg TID PO Last administered on 02/02/17 13:18; Admin Dose 10 MG; Start 01/19/17 at 13:00 Senna/Docusate Sodium (Senokot-S) 2 tab HS PO Last administered on 02/01/17 20 :23; Admin Dose 2 TAB; Start 01/19/17 at 21:00 Methylprednisolone (Medrol) 32 mg DAILY PO Last administered on 02/02/17 08:11 ; Admin Dose 32 MG; Start 01/19/17 at 13:00; Stop 02/16/17 at 12:59 Lorazepam (Ativan) 0.5 mg Q6H PRN PO ANXIETY Last administered on 02/02/17 14: 32; Admin Dose 0.5 MG; Start 01/20/17 at 17:00 Morphine Sulfate (morphine) 3 mg Q4H PRN IV PAIN LEVEL 7-10 Last administered on 02/02/17 13:18; Admin Dose 3 MG; Start 01/26/17 at 13:00 Guaifenesin/ Codeine Phosphate (Robitussin Ac Liquid Cup) 10 ml Q4H PRN PO COUGH Last administered on 02/02/17 13:57; Admin Dose 10 ML; Start 01/28/17 at 16:30 Thiamine HCl (Vitamin B1) 100 mg DAILY PO Last administered on 02/02/17 08:11 ; Admin Dose 100 MG; Start 01/31/17 at 10:00; Stop 02/07/17 at 09:59 Furosemide (Lasix) 40 mg DAILY PO Last administered on 02/02/17 08:12; Admin Dose 40 MG; Start 01/31/17 at 10:00 Pantoprazole (Protonix Tab) 40 mg DAILY@06 PO Last administered on 02/02/17 05 :10; Admin Dose 40 MG; Start 02/01/17 at 06:00 Spironolactone (Aldactone) 50 mg DAILY PO Last administered on 02/02/17 08:13 ; Admin Dose 50 MG; Start 02/01/17 at 10:00 HARSHIL ALMONTE M.D. Feb 02, 2017 15:44
[2017-02-02 20:17] VITALS: BP 106/57; RESP 19
[2017-02-02] MEDS: SENNA/DOCUSATE NA (8.6MG/50MG) TAB PO SCH (20:39)
[2017-02-03] MEDS: morphine 4 MG/ML VIAL IV PRN ×5 (03:19→22:36)
[2017-02-03] MEDS: GUAIFENESIN/CODEINE 5ML CUP PO PRN ×4 (03:54→20:56)
[2017-02-03] MEDS: LORAZEPAM 0.5 MG TAB PO PRN ×4 (03:57→23:11)
[2017-02-03] MEDS: ONDANSETRON 4 MG INJ IV PRN ×3 (04:49→20:56)
[2017-02-03] MEDS: PANTOPRAZOLE (EC) 40 MG TAB PO SCH (05:02)
[2017-02-03 05:49] LABS: ADD SCAN DIFF NO
[2017-02-03 05:53] LABS: ABNORMAL IP MESSAGE 1; HEMATOCRIT 26.5 % (42.0-52.0); MEAN CORPUSCULAR HEMOGLOBIN 34.7 pg (29.0-33.0); MEAN CORPUSCULAR VOLUME 102.3 fl (82.0-101.0); MEAN PLATELET VOLUME 11.2 fl (7.4-10.4); PLATELET COUNT 219 10^3/UL (140-415); RED BLOOD COUNT 2.59 10^6/ul (4.70-6.10); RED CELL DISTRIBUTION WIDTH 18.5 % (11.5-14.5); WHITE BLOOD COUNT 58.4 10^3/ul (4.8-10.8)
[2017-02-03 07:04] LABS: MAGNESIUM 2.1 mg/dl (1.7-2.5); PHOSPHORUS 4.1 mg/dl (2.5-4.9)
[2017-02-03 07:10] LABS: ALBUMIN/GLOBULIN RATIO 1.03; BILIRUBIN,DIRECT 9.1 mg/dl (0.00-0.20); BILIRUBIN,INDIRECT 2.4 mg/dl (0-1.1); BILIRUBIN,TOTAL 11.5 mg/dl (0.2-1.3); CALCIUM 8.5 mg/dl (8.4-10.2); CREATININE 0.46 mg/dl (0.61-1.24); POTASSIUM 3.7 mmol/L (3.5-5.1); TOTAL PROTEIN 5.9 g/dl (6.1-8.1)
[2017-02-03] MEDS: PROPRANOLOL 10 MG TAB PO SCH ×3 (08:57→22:35)
[2017-02-03] MEDS: FUROSEMIDE 40 MG TAB PO SCH (08:57)
[2017-02-03] MEDS: ERGOCALCIFEROL 50,000 UNIT CAP PO SCH (08:57)
[2017-02-03] MEDS: FOLIC ACID 1 MG TAB PO SCH (08:57)
[2017-02-03] MEDS: SPIRONOLACTONE 50 MG TAB PO SCH (08:57)
[2017-02-03] MEDS: THIAMINE 100 MG TAB PO SCH (08:57)
[2017-02-03] MEDS: METHYLPREDNISOLONE 4 MG TAB PO SCH (08:58)
--- NOTE | 2017-02-03 10:51 | PN ---
Date/Time of Note Date/Time of Note DATE: 02/03/17 TIME: 10:47 Assessment/Plan VTE Prophylaxis VTE Prophylaxis Intervention: contraindicated Lines/Catheters [facility] Saline Lock Urinary Cath still in place: No Assessment/Plan Chief Complaint/Hosp Course 1. Abdominal pain. Etiology could be from underlying alcoholic hepatitis. CT scan of the abdomen and pelvis showed hepatosplenomegaly and small to moderate ascites with ill-defined consolidation in the anterior segment of the right upper lobe. 2. Transaminitis with hyperbilirubinemia. Most probably secondary to underlying alcoholic liver disease. Hepatotoxic drugs will be avoided on this patient. 3. Alcoholic hepatitis. The patient will be continued on steroids as per recommendations of gastroenterology. Gastroenterology following. 4. Alcohol abuse. The patient denies any recent history of alcohol abuse. The patient will be reinforced to avoid using any alcohol. 5. Coagulopathy. Most probably secondary to underlying acute alcoholic liver disease. The patient will be monitored closely for any bleeding. 6. Persistent leukocytosis. Status post evaluation by hematology. No evidence of malignancy. Leukocytosis secondary to underlying inflammation. 7. Hyponatremia. Monitor. 8. Fluids, electrolytes, and nutrition. Regular diet as tolerated. 9. DVT prophylaxis. Contraindicated. 10. Gastrointestinal prophylaxis. Proton pump inhibitors. 11. Plan. No evidence of any malignancy as per hematology. Leukocytosis are getting worse. Will await until the WBCs are trending down for discharging the patient home. Case discussed with Dr. Jenkins. Problems: Subjective 24 Hr Interval Summary Free Text/Dictation Tolerating oral intake. Exam/Review of Systems Vital Signs Vitals Vital Signs Date Time Temp Pulse Resp B/P Pulse Ox O2 Delivery O2 Flow Rate FiO2 02/02/17 20:17 98.7 77 19 106/57 96 01/30/17 13:43 Nasal Cannula 2.0 Intake and Output 02/02/17 02/02/17 02/03/17 15:00 23:00 07:00 Intake Total 2380 ml 650 ml Output Total 1200 ml 1100 ml Balance 1180 ml -450 ml Exam GENERAL: This is an obese male lying in bed in no apparent distress. HEENT: Head normocephalic and atraumatic. Eyes: Icteric sclerae. Conjunctivae clear. ENT: Nasal septum midline. Oral mucosa is dry. NECK: Supple. No JVD noticed. RESPIRATORY: Bilateral diminished breath sounds. No adventitious breath sounds heard. No use of accessory muscles of respiration. CARDIAC: Regular rate and S2. ABDOMEN: Diffuse tenderness specifically in the right upper quadrant, epigastric and left upper quadrant. No rebound tenderness or guarding. GENITOURINARY: Deferred. EXTREMITIES: No cyanosis, no clubbing. Bilateral lower extremity 1+ pitting edema. Peripheral pulses palpable. NEUROLOGIC: The patient is awake, alert and oriented. Cranial nerves are grossly intact. SKIN: Generalized icterus. Results Result Diagram: 02/03/1752402/03/1725 Results 24 hrs Laboratory Tests Test 02/03/17 05:25 White Blood Count 58.4 H Red Blood Count 2.59 L Hemoglobin 9.0 L Hematocrit 26.5 L Mean Corpuscular Volume 102.3 H Mean Corpuscular Hemoglobin 34.7 H Mean Corpuscular Hemoglobin Concent 34.0 Red Cell Distribution Width 18.5 H Platelet Count 219 Mean Platelet Volume 11.2 H Neutrophils % Eosinophils % Neutrophils # Eosinophils # Sodium Level 134 L Potassium Level 3.7 Chloride Level 99 Carbon Dioxide Level 24 Anion Gap 15 Blood Urea Nitrogen 11 Creatinine 0.46 L Glucose Level 118 Calcium Level 8.5 Phosphorus Level 4.1 Magnesium Level 2.1 Total Bilirubin 11.5 H Direct Bilirubin 9.10 H Indirect Bilirubin 2.4 H Aspartate Amino Transf (AST/SGOT) 45 Alanine Aminotransferase (ALT/SGPT) 45 Alkaline Phosphatase 307 H Total Protein 5.9 L Albumin 3.0 L Globulin 2.90 Albumin/Globulin Ratio 1.03 Medications Medications Current Medications Ondansetron HCl (Zofran Inj) 4 mg Q6H PRN IV NAUSEA AND/OR VOMITING Last administered on 02/03/17 04:49; Admin Dose 4 MG; Start 01/19/17 at 09:00 Ergocalciferol (Drisdol) 50,000 unit Q7D PO Last administered on 02/03/17 08: 57; Admin Dose 50,000 UNIT; Start 01/20/17 at 09:00 Folic Acid (Folic Acid) 2 mg DAILY PO Last administered on 02/03/17 08:57; Admin Dose 2 MG; Start 01/20/17 at 09:00 Hydrocortisone (Anusol-Hc Supp) 25 mg TID PRN [place] HEMORROID PAIN/ITCHING; Start 01/19/17 at 11:30 Propranolol HCl (Inderal) 10 mg TID PO Last administered on 02/03/17 08:57; Admin Dose 10 MG; Start 01/19/17 at 13:00 Senna/Docusate Sodium (Senokot-S) 2 tab HS PO Last administered on 02/02/17 20 :39; Admin Dose 2 TAB; Start 01/19/17 at 21:00 Methylprednisolone (Medrol) 32 mg DAILY PO Last administered on 02/03/17 08:58 ; Admin Dose 32 MG; Start 01/19/17 at 13:00; Stop 02/16/17 at 12:59 Lorazepam (Ativan) 0.5 mg Q6H PRN PO ANXIETY Last administered on 02/03/17 03: 57; Admin Dose 0.5 MG; Start 01/20/17 at 17:00 Morphine Sulfate (morphine) 3 mg Q4H PRN IV PAIN LEVEL 7-10 Last administered on 02/03/17 08:56; Admin Dose 3 MG; Start 01/26/17 at 13:00 Guaifenesin/ Codeine Phosphate (Robitussin Ac Liquid Cup) 10 ml Q4H PRN PO COUGH Last administered on 02/03/17 09:49; Admin Dose 10 ML; Start 01/28/17 at 16:30 Thiamine HCl (Vitamin B1) 100 mg DAILY PO Last administered on 02/03/17 08:57 ; Admin Dose 100 MG; Start 01/31/17 at 10:00; Stop 02/07/17 at 09:59 Furosemide (Lasix) 40 mg DAILY PO Last administered on 02/03/17 08:57; Admin Dose 40 MG; Start 01/31/17 at 10:00 Pantoprazole (Protonix Tab) 40 mg DAILY@06 PO Last administered on 02/03/17 05 :02; Admin Dose 40 MG; Start 02/01/17 at 06:00 Spironolactone (Aldactone) 50 mg DAILY PO Last administered on 02/03/17 08:57 ; Admin Dose 50 MG; Start 02/01/17 at 10:00 BRENNON RASMUSSEN NP Feb 03, 2017 10:51
[2017-02-03 12:10] LABS: EOSINOPHILS # 1.2 10^3/ul (0.0-0.5); LYMPHOCYTES # 1.2 10^3/ul (0.8-2.9); MONOCYTE # 2.3 10^3/ul (0.3-0.9); MYELOCYTES # 0.6; NEUTROPHIL # 48.5 10^3/ul (1.6-7.5)
[2017-02-03 13:06] VITALS: BP 108/55; PULSE 78
--- NOTE | 2017-02-03 16:46 | CONS ---
Date/Time of Note Date/Time of Note DATE: 02/03/17 TIME: 16:45 Assessment/Plan Assessment/Plan Chief Complaint/Hosp Course Patient with severe alcoholic hepatitis and pancreatitis now on steroids who presents with chronic leukocytosis. Leukocytosis continues to worsen #Leukocytosis - PT does not appear actively infected. pt has been admitted multiple times for alcoholic hepatitis and has presented with severe leukocytosis during those time. His current leukocytosis is likely secondary to the steroids and alcoholic hepatitis. Peripheral smear was reviewed and did not show evidence of acute leukemia or obvious myeloproliferative disorder. Flow cytometry does not show evidence of hematologic malignancy. There is evidence of a left shifted myeloid maturation and no abnormal B cell population. JABARI 2 and BCR ABL are both negative -elevated WBC is NOT secondary to underlying malignancy and only secondary to underlying inflammation #Alcoholic Hepatitis -this is causing macrocytic anemia with dysmaturation of bone marrow. -continue supportive care per primary team Problems: Consultation Date/Type/Reason Admit Date/Time Jan 19, 2017 at 06:11 Initial Consult Date 01/25/17 Type of Consultation: Hematology Reason for Consultation leukocytosis Referring Provider: BRENNON RASMUSSEN [employer] TECHNICIAN 24 HR Interval Summary Free Text/Dictation WBC count trending up Exam/Review of Systems Vital Signs Vitals Vital Signs Date Time Temp Pulse Resp B/P Pulse Ox O2 Delivery O2 Flow Rate FiO2 02/03/17 13:06 78 108/55 02/02/17 20:17 98.7 19 96 01/30/17 13:43 Nasal Cannula 2.0 Intake and Output 02/02/17 02/02/17 02/03/17 15:00 23:00 07:00 Intake Total 2380 ml 650 ml Output Total 1200 ml 1100 ml Balance 1180 ml -450 ml Exam Constitutional: alert, oriented Psych: no complaints Head: normocephalic Eyes: nl conjunctiva ENMT: nl external ears & nose Neck: non-tender, supple Respiratory: clear to auscultation Cardiovascular: regular rate and rhythm Gastrointestinal: ascites Musculoskeletal: nl extremities to inspection Extremities: edema Results Result Diagram: 02/03/1725 02/03/17 0525 Results 24 hrs Laboratory Tests Test 02/03/17 05:25 White Blood Count 58.4 H Red Blood Count 2.59 L Hemoglobin 9.0 L Hematocrit 26.5 L Mean Corpuscular Volume 102.3 H Mean Corpuscular Hemoglobin 34.7 H Mean Corpuscular Hemoglobin Concent 34.0 Red Cell Distribution Width 18.5 H Platelet Count 219 Mean Platelet Volume 11.2 H Neutrophils % 83.0 H Band Neutrophils % 8.0 H Lymphocytes % 2.0 L Monocytes % 4.0 Eosinophils % 2.0 Myelocytes % 1.0 H Neutrophils # 48.5 H Lymphocytes # 1.2 Monocytes # 2.3 H Eosinophils # 1.2 H Myelocytes # 0.6 Sodium Level 134 L Potassium Level 3.7 Chloride Level 99 Carbon Dioxide Level 24 Anion Gap 15 Blood Urea Nitrogen 11 Creatinine 0.46 L Glucose Level 118 Calcium Level 8.5 Phosphorus Level 4.1 Magnesium Level 2.1 Total Bilirubin 11.5 H Direct Bilirubin 9.10 H Indirect Bilirubin 2.4 H Aspartate Amino Transf (AST/SGOT) 45 Alanine Aminotransferase (ALT/SGPT) 45 Alkaline Phosphatase 307 H Total Protein 5.9 L Albumin 3.0 L Globulin 2.90 Albumin/Globulin Ratio 1.03 Medications Medications Current Medications Ondansetron HCl (Zofran Inj) 4 mg Q6H PRN IV NAUSEA AND/OR VOMITING Last administered on 02/03/17 14:05; Admin Dose 4 MG; Start 01/19/17 at 09:00 Ergocalciferol (Drisdol) 50,000 unit Q7D PO Last administered on 02/03/17 08: 57; Admin Dose 50,000 UNIT; Start 01/20/17 at 09:00 Folic Acid (Folic Acid) 2 mg DAILY PO Last administered on 02/03/17 08:57; Admin Dose 2 MG; Start 01/20/17 at 09:00 Hydrocortisone (Anusol-Hc Supp) 25 mg TID PRN [place] HEMORROID PAIN/ITCHING; Start 01/19/17 at 11:30 Propranolol HCl (Inderal) 10 mg TID PO Last administered on 02/03/17 13:05; Admin Dose 10 MG; Start 01/19/17 at 13:00 Senna/Docusate Sodium (Senokot-S) 2 tab HS PO Last administered on 02/02/17 20 :39; Admin Dose 2 TAB; Start 01/19/17 at 21:00 Methylprednisolone (Medrol) 32 mg DAILY PO Last administered on 02/03/17 08:58 ; Admin Dose 32 MG; Start 01/19/17 at 13:00; Stop 7/10/17 at 12:59 Lorazepam (Ativan) 0.5 mg Q6H PRN PO ANXIETY Last administered on 02/03/17 10: 48; Admin Dose 0.5 MG; Start 01/20/17 at 17:00 Morphine Sulfate (morphine) 3 mg Q4H PRN IV PAIN LEVEL 7-10 Last administered on 02/03/17 13:59; Admin Dose 3 MG; Start 01/26/17 at 13:00 Guaifenesin/ Codeine Phosphate (Robitussin Ac Liquid Cup) 10 ml Q4H PRN PO COUGH Last administered on 02/03/17 15:49; Admin Dose 10 ML; Start 01/28/17 at 16:30 Thiamine HCl (Vitamin B1) 100 mg DAILY PO Last administered on 02/03/17 08:57 ; Admin Dose 100 MG; Start 01/31/17 at 10:00; Stop 02/07/17 at 09:59 Furosemide (Lasix) 40 mg DAILY PO Last administered on 02/03/17 08:57; Admin Dose 40 MG; Start 01/31/17 at 10:00 Pantoprazole (Protonix Tab) 40 mg DAILY@06 PO Last administered on 02/03/17 05 :02; Admin Dose 40 MG; Start 02/01/17 at 06:00 Spironolactone (Aldactone) 50 mg DAILY PO Last administered on 02/03/17 08:57 ; Admin Dose 50 MG; Start 02/01/17 at 10:00 HARSHIL ALMONTE M.D. Feb 03, 2017 16:46
[2017-02-03 20:47] VITALS: BP 115/61; RESP 16
[2017-02-03] MEDS: SENNA/DOCUSATE NA (8.6MG/50MG) TAB PO SCH (20:57)
[2017-02-04] MEDS: GUAIFENESIN/CODEINE 5ML CUP PO PRN ×5 (01:12→20:43)
[2017-02-04] MEDS: ONDANSETRON 4 MG INJ IV PRN ×3 (03:17→22:25)
[2017-02-04] MEDS: morphine 4 MG/ML VIAL IV PRN ×5 (03:18→20:43)
[2017-02-04] MEDS: PANTOPRAZOLE (EC) 40 MG TAB PO SCH (05:21)
[2017-02-04] MEDS: LORAZEPAM 0.5 MG TAB PO PRN ×3 (06:01→19:05)
[2017-02-04 07:53] LABS: ADD SCAN DIFF NO
[2017-02-04 07:58] VITALS: BP 109/56; RESP 17
[2017-02-04 08:01] LABS: ABNORMAL IP MESSAGE 1; BASOPHIL # 0.2 10^3/ul (0.0-0.1); BASOPHILS % 0.3 % (0.0-2.0); EOSINOPHILS # 1.7 10^3/ul (0.0-0.5); HEMATOCRIT 26.4 % (42.0-52.0); HEMOGLOBIN 8.8 g/dl (14.0-18.0); LYMPHOCYTES # 1.6 10^3/ul (0.8-2.9); LYMPHOCYTES % 2.8 % (15.0-51.0); MEAN CORPUSCULAR HEMOGLOBIN 34.2 pg (29.0-33.0); MEAN CORPUSCULAR HGB CONC 33.3 g/dl (32.0-37.0); MEAN CORPUSCULAR VOLUME 102.7 fl (82.0-101.0); MEAN PLATELET VOLUME 11.6 fl (7.4-10.4); MONOCYTE # 1.5 10^3/ul (0.3-0.9); MONOCYTES % 2.7 % (0.0-11.0); NEUTROPHILS % 88.8 % (39.0-77.0); PLATELET COUNT 208 10^3/UL (140-415); RED BLOOD COUNT 2.57 10^6/ul (4.70-6.10); RED CELL DISTRIBUTION WIDTH 18.7 % (11.5-14.5); WHITE BLOOD COUNT 55.2 10^3/ul (4.8-10.8)
[2017-02-04] MEDS: PROPRANOLOL 10 MG TAB PO SCH ×3 (09:00→20:48)
[2017-02-04] MEDS: METHYLPREDNISOLONE 4 MG TAB PO SCH (09:31)
[2017-02-04] MEDS: FOLIC ACID 1 MG TAB PO SCH (09:32)
[2017-02-04] MEDS: THIAMINE 100 MG TAB PO SCH (09:32)
[2017-02-04] MEDS: FUROSEMIDE 40 MG TAB PO SCH (09:32)
[2017-02-04] MEDS: SPIRONOLACTONE 50 MG TAB PO SCH (09:33)
[2017-02-04 09:51] LABS: ALBUMIN 3.1 g/dl (3.3-4.9); ALBUMIN/GLOBULIN RATIO 1.06; BILIRUBIN,DIRECT 8.3 mg/dl (0.00-0.20); BILIRUBIN,INDIRECT 2.5 mg/dl (0-1.1); BILIRUBIN,TOTAL 10.8 mg/dl (0.2-1.3); CALCIUM 8.3 mg/dl (8.4-10.2); CREATININE 0.55 mg/dl (0.61-1.24); POTASSIUM 3.7 mmol/L (3.5-5.1)
--- NOTE | 2017-02-04 10:01 | PN ---
Date/Time of Note Date/Time of Note DATE: 02/04/17 TIME: 09:59 Assessment/Plan VTE Prophylaxis VTE Prophylaxis Intervention: contraindicated Lines/Catheters IV [facility] Type [facility]from [facility] Saline Lock Urinary Cath still in place: No Assessment/Plan Chief Complaint/Hosp Course 1. Abdominal pain. Etiology could be from underlying alcoholic hepatitis. CT scan of the abdomen and pelvis showed hepatosplenomegaly and small to moderate ascites with ill-defined consolidation in the anterior segment of the right upper lobe. 2. Transaminitis with hyperbilirubinemia. Most probably secondary to underlying alcoholic liver disease. Hepatotoxic drugs will be avoided on this patient. 3. Alcoholic hepatitis. The patient will be continued on steroids as per recommendations of gastroenterology. Gastroenterology following. 4. Alcohol abuse. The patient denies any recent history of alcohol abuse. The patient will be reinforced to avoid using any alcohol. 5. Coagulopathy. Most probably secondary to underlying acute alcoholic liver disease. The patient will be monitored closely for any bleeding. 6. Persistent leukocytosis. Status post evaluation by hematology. No evidence of malignancy. Leukocytosis secondary to underlying inflammation. 7. Hyponatremia. Monitor. 8. Fluids, electrolytes, and nutrition. Regular diet as tolerated. 9. DVT prophylaxis. Contraindicated. 10. Gastrointestinal prophylaxis. Proton pump inhibitors. 11. Plan. No evidence of any malignancy as per hematology. Leukocytosis are getting worse. Will await until the WBCs are trending down for discharging the patient home. Case discussed with Dr. Jenkins. Problems: Subjective 24 Hr Interval Summary Free Text/Dictation WBC still elevated, but trending down Exam/Review of Systems Vital Signs Vitals Vital Signs Date Time Temp Pulse Resp B/P Pulse Ox O2 Delivery O2 Flow Rate FiO2 02/04/17 07:58 98.4 82 17 109/56 94 Intake and Output 02/03/17 02/03/17 02/04/17 15:00 23:00 07:00 Intake Total 1620 ml 1000 ml Output Total 1650 ml 625 ml Balance -30 ml 375 ml Exam GENERAL: This is an obese male lying in bed in no apparent distress. HEENT: Head normocephalic and atraumatic. Eyes: Icteric sclerae. Conjunctivae clear. ENT: Nasal septum midline. Oral mucosa is dry. NECK: Supple. No JVD noticed. RESPIRATORY: Bilateral diminished breath sounds. No adventitious breath sounds heard. No use of accessory muscles of respiration. CARDIAC: Regular rate. S1 and S2 heard. ABDOMEN: Diffuse tenderness specifically in the right upper quadrant, epigastric and left upper quadrant. No rebound tenderness or guarding. GENITOURINARY: Deferred. EXTREMITIES: No cyanosis, no clubbing. Bilateral lower extremity 1+ pitting edema. Peripheral pulses palpable. NEUROLOGIC: The patient is awake, alert and oriented. Cranial nerves are grossly intact. SKIN: Generalized icterus. Results Result Diagram: 02/04/17 0534 02/04/17 0535 Results 24 hrs Laboratory Tests Test 02/04/17 05:34 02/04/17 05:35 White Blood Count 55.2 H Red Blood Count 2.57 L Hemoglobin 8.8 L Hematocrit 26.4 L Mean Corpuscular Volume 102.7 H Mean Corpuscular Hemoglobin 34.2 H Mean Corpuscular Hemoglobin Concent 33.3 Red Cell Distribution Width 18.7 H Platelet Count 208 Mean Platelet Volume 11.6 H Neutrophils % 88.8 H Lymphocytes % 2.8 L Monocytes % 2.7 Eosinophils % 3.0 Basophils % 0.3 Nucleated Red Blood Cells % 0.0 Neutrophils # 49.0 H Lymphocytes # 1.6 Monocytes # 1.5 H Eosinophils # 1.7 H Basophils # 0.2 H Nucleated Red Blood Cells # 0.0 Phosphorus Level 4.0 Magnesium Level 2.0 Sodium Level 131 L Potassium Level 3.7 Chloride Level 98 Carbon Dioxide Level 25 Anion Gap 12 Blood Urea Nitrogen 10 Creatinine 0.55 L Glucose Level 76 # Calcium Level 8.3 L Total Bilirubin 10.8 H Direct Bilirubin 8.30 H Indirect Bilirubin 2.5 H Aspartate Amino Transf (AST/SGOT) 46 Alanine Aminotransferase (ALT/SGPT) 45 Alkaline Phosphatase 328 H Total Protein 6.0 L Albumin 3.1 L Globulin 2.90 Albumin/Globulin Ratio 1.06 Medications Medications Current Medications Ondansetron HCl (Zofran Inj) 4 mg Q6H PRN IV NAUSEA AND/OR VOMITING Last administered on 02/04/17 03:17; Admin Dose 4 MG; Start 01/19/17 at 09:00 Ergocalciferol (Drisdol) 50,000 unit Q7D PO Last administered on 02/03/17 08: 57; Admin Dose 50,000 UNIT; Start 01/20/17 at 09:00 Folic Acid (Folic Acid) 2 mg DAILY PO Last administered on 02/04/17 09:32; Admin Dose 2 MG; Start 01/20/17 at 09:00 Hydrocortisone (Anusol-Hc Supp) 25 mg TID PRN [place] HEMORROID PAIN/ITCHING; Start 01/19/17 at 11:30 Propranolol HCl (Inderal) 10 mg TID PO Last administered on 02/03/17 22:35; Admin Dose 10 MG; Start 01/19/17 at 13:00 Senna/Docusate Sodium (Senokot-S) 2 tab HS PO Last administered on 02/03/17 20 :57; Admin Dose 2 TAB; Start 01/19/17 at 21:00 Methylprednisolone (Medrol) 32 mg DAILY PO Last administered on 02/04/17 09:31 ; Admin Dose 32 MG; Start 01/19/17 at 13:00; Stop 02/16/17 at 12:59 Lorazepam (Ativan) 0.5 mg Q6H PRN PO ANXIETY Last administered on 02/04/17 06: 01; Admin Dose 0.5 MG; Start 01/20/17 at 17:00 Morphine Sulfate (morphine) 3 mg Q4H PRN IV PAIN LEVEL 7-10 Last administered on 02/04/17 07:54; Admin Dose 3 MG; Start 01/26/17 at 13:00 Guaifenesin/ Codeine Phosphate (Robitussin Ac Liquid Cup) 10 ml Q4H PRN PO COUGH Last administered on 02/04/17 06:01; Admin Dose 10 ML; Start 01/28/17 at 16:30 Thiamine HCl (Vitamin B1) 100 mg DAILY PO Last administered on 02/04/17 09:32 ; Admin Dose 100 MG; Start 01/31/17 at 10:00; Stop 02/07/17 at 09:59 Furosemide (Lasix) 40 mg DAILY PO Last administered on 02/04/17 09:32; Admin Dose 40 MG; Start 01/31/17 at 10:00 Pantoprazole (Protonix Tab) 40 mg DAILY@06 PO Last administered on 02/04/17 05 :21; Admin Dose 40 MG; Start 02/01/17 at 06:00 Spironolactone (Aldactone) 50 mg DAILY PO Last administered on 02/04/17 09:33 ; Admin Dose 50 MG; Start 02/01/17 at 10:00 BRENNON RASMUSSEN NP Feb 04, 2017 10:01
--- NOTE | 2017-02-04 17:02 | PN ---
Date/Time of Note Date/Time of Note DATE: 02/04/17 TIME: 17:00 Assessment/Plan VTE Prophylaxis VTE Prophylaxis Intervention: ambulation Lines/Catheters IV [facility]ter Type (from [facility]): Saline Lock Urinary Cath still in place: No Assessment/Plan Assessment/Plan cute alcoholic hepatitis, high discriminant function which denotes high mortality and benefit for steroid treatment Marked leukocytosis. Fairly common finding in patients with alcoholic hepatitis especially in treatment with steroids Chronic alcoholism Polysubstance abuse/poor compliance Edema bilateral acute kidney injury Elevated WBC he[place]onco on board Plan: Continue present management Trend liver enzymes/white blood cell count Abstinence critical to his recovery and lifespan Case was discussed with Dr Ospina Further orders will depend on clinical course Subjective 24 Hr Interval Summary Free Text/Dictation * Course reviewed with RN * Patient seen and examined * no unusual events overnight Exam/Review of Systems Vital Signs Vitals Vital Signs Date Time Temp Pulse Resp B/P Pulse Ox O2 Delivery O2 Flow Rate FiO2 02/04/17 07:58 98.4 82 17 109/56 94 Intake and Output 02/03/17 02/03/17 02/04/17 15:00 23:00 07:00 Intake Total 1620 ml 1000 ml Output Total 1650 ml 625 ml Balance -30 ml 375 ml Exam Constitutional: alert, oriented Head: normocephalic Eyes: icteric Neck: non-tender, supple Respiratory: clear to auscultation Cardiovascular: nl pulses, regular rate and rhythm Gastrointestinal: bowel sounds, non-tender, soft, No nl liver, spleen Genitourinary - Male: other (scrotal swelling) Extremities: normal pulses 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: nl speech, nl strength Skin: nl turgor, No rash or lesions Results Result Diagram: 02/04/17 0534 02/04/17 0535 Results 24 hrs Laboratory Tests Test 02/04/17 05:34 02/04/17 05:35 White Blood Count 55.2 H Red Blood Count 2.57 L Hemoglobin 8.8 L Hematocrit 26.4 L Mean Corpuscular Volume 102.7 H Mean Corpuscular Hemoglobin 34.2 H Mean Corpuscular Hemoglobin Concent 33.3 Red Cell Distribution Width 18.7 H Platelet Count 208 Mean Platelet Volume 11.6 H Neutrophils % 88.8 H Lymphocytes % 2.8 L Monocytes % 2.7 Eosinophils % 3.0 Basophils % 0.3 Nucleated Red Blood Cells % 0.0 Neutrophils # 49.0 H Lymphocytes # 1.6 Monocytes # 1.5 H Eosinophils # 1.7 H Basophils # 0.2 H Nucleated Red Blood Cells # 0.0 Phosphorus Level 4.0 Magnesium Level 2.0 Sodium Level 131 L Potassium Level 3.7 Chloride Level 98 Carbon Dioxide Level 25 Anion Gap 12 Blood Urea Nitrogen 10 Creatinine 0.55 L Glucose Level 76 # Calcium Level 8.3 L Total Bilirubin 10.8 H Direct Bilirubin 8.30 H Indirect Bilirubin 2.5 H Aspartate Amino Transf (AST/SGOT) 46 Alanine Aminotransferase (ALT/SGPT) 45 Alkaline Phosphatase 328 H Total Protein 6.0 L Albumin 3.1 L Globulin 2.90 Albumin/Globulin Ratio 1.06 Medications Medications Current Medications Ondansetron HCl (Zofran Inj) 4 mg Q6H PRN IV NAUSEA AND/OR VOMITING Last administered on 02/04/17 15:57; Admin Dose 4 MG; Start 01/19/17 at 09:00 Ergocalciferol (Drisdol) 50,000 unit Q7D PO Last administered on 02/03/17 08: 57; Admin Dose 50,000 UNIT; Start 01/20/17 at 09:00 Folic Acid (Folic Acid) 2 mg DAILY PO Last administered on 02/04/17 09:32; Admin Dose 2 MG; Start 01/20/17 at 09:00 Hydrocortisone (Anusol-Hc Supp) 25 mg TID PRN [place] HEMORROID PAIN/ITCHING; Start 01/19/17 at 11:30 Propranolol HCl (Inderal) 10 mg TID PO Last administered on 02/04/17 12:48; Admin Dose 10 MG; Start 01/19/17 at 13:00 Senna/Docusate Sodium (Senokot-S) 2 tab HS PO Last administered on 02/03/17 20 :57; Admin Dose 2 TAB; Start 01/19/17 at 21:00 Methylprednisolone (Medrol) 32 mg DAILY PO Last administered on 02/04/17 09:31 ; Admin Dose 32 MG; Start 01/19/17 at 13:00; Stop 02/16/17 at 12:59 Lorazepam (Ativan) 0.5 mg Q6H PRN PO ANXIETY Last administered on 02/04/17 12: 43; Admin Dose 0.5 MG; Start 01/20/17 at 17:00 Morphine Sulfate (morphine) 3 mg Q4H PRN IV PAIN LEVEL 7-10 Last administered on 02/04/17 16:00; Admin Dose 3 MG; Start 01/26/17 at 13:00 Guaifenesin/ Codeine Phosphate (Robitussin Ac Liquid Cup) 10 ml Q4H PRN PO COUGH Last administered on 02/04/17 15:57; Admin Dose 10 ML; Start 01/28/17 at 16:30 Thiamine HCl (Vitamin B1) 100 mg DAILY PO Last administered on 02/04/17 09:32 ; Admin Dose 100 MG; Start 01/31/17 at 10:00; Stop 02/07/17 at 09:59 Furosemide (Lasix) 40 mg DAILY PO Last administered on 02/04/17 09:32; Admin Dose 40 MG; Start 01/31/17 at 10:00 Pantoprazole (Protonix Tab) 40 mg DAILY@06 PO Last administered on 02/04/17 05 :21; Admin Dose 40 MG; Start 02/01/17 at 06:00 Spironolactone (Aldactone) 50 mg DAILY PO Last administered on 02/04/17 09:33 ; Admin Dose 50 MG; Start 02/01/17 at 10:00 CROW ALEJANDRO NP Feb 04, 2017 17:02
[2017-02-04 20:43] VITALS: BP 113/61; RESP 18
[2017-02-04] MEDS: SENNA/DOCUSATE NA (8.6MG/50MG) TAB PO SCH (20:47)
[2017-02-05] MEDS: morphine 4 MG/ML VIAL IV PRN ×6 (00:46→22:40)
[2017-02-05] MEDS: GUAIFENESIN/CODEINE 5ML CUP PO PRN ×6 (00:46→22:41)
[2017-02-05] MEDS: LORAZEPAM 0.5 MG TAB PO PRN ×3 (01:57→20:08)
[2017-02-05] MEDS: ONDANSETRON 4 MG INJ IV PRN ×3 (04:48→18:52)
[2017-02-05] MEDS: PANTOPRAZOLE (EC) 40 MG TAB PO SCH (05:00)
[2017-02-05 05:15] LABS: ABNORMAL IP MESSAGE 1; ADD SCAN DIFF NO; EOSINOPHILS # 1.4 10^3/ul (0.0-0.5); EOSINOPHILS % 2.7 % (0.0-7.0); HEMOGLOBIN 8.2 g/dl (14.0-18.0); LYMPHOCYTES # 1.6 10^3/ul (0.8-2.9); LYMPHOCYTES % 3.1 % (15.0-51.0); MEAN CORPUSCULAR HEMOGLOBIN 33.7 pg (29.0-33.0); MEAN CORPUSCULAR HGB CONC 32.8 g/dl (32.0-37.0); MEAN CORPUSCULAR VOLUME 102.9 fl (82.0-101.0); MEAN PLATELET VOLUME 11.6 fl (7.4-10.4); MONOCYTE # 1.7 10^3/ul (0.3-0.9); MONOCYTES % 3.2 % (0.0-11.0); NEUTROPHIL # 46.3 10^3/ul (1.6-7.5); NEUTROPHILS % 88.6 % (39.0-77.0); PLATELET COUNT 172 10^3/UL (140-415); RED BLOOD COUNT 2.43 10^6/ul (4.70-6.10)
[2017-02-05 05:35] LABS: WHITE BLOOD COUNT 52.3 10^3/ul (4.8-10.8)
[2017-02-05 05:43] LABS: PHOSPHORUS 3.7 mg/dl (2.5-4.9)
[2017-02-05 05:58] LABS: ALBUMIN 2.8 g/dl (3.3-4.9); BILIRUBIN,DIRECT 8.1 mg/dl (0.00-0.20); BILIRUBIN,INDIRECT 2.2 mg/dl (0-1.1); BILIRUBIN,TOTAL 10.3 mg/dl (0.2-1.3); CALCIUM 8.2 mg/dl (8.4-10.2); CREATININE 0.44 mg/dl (0.61-1.24); POTASSIUM 3.6 mmol/L (3.5-5.1); TOTAL PROTEIN 5.6 g/dl (6.1-8.1)
[2017-02-05 08:00] VITALS: BP 115/59; RESP 20
[2017-02-05] MEDS: SPIRONOLACTONE 50 MG TAB PO SCH (09:06)
[2017-02-05] MEDS: FUROSEMIDE 40 MG TAB PO SCH (09:06)
[2017-02-05] MEDS: FOLIC ACID 1 MG TAB PO SCH (09:07)
[2017-02-05] MEDS: METHYLPREDNISOLONE 4 MG TAB PO SCH (09:07)
[2017-02-05] MEDS: THIAMINE 100 MG TAB PO SCH (09:07)
[2017-02-05] MEDS: PROPRANOLOL 10 MG TAB PO SCH ×3 (09:08→20:08)
--- NOTE | 2017-02-05 11:28 | CONS ---
Date/Time of Note Date/Time of Note DATE: 02/05/17 TIME: 11:26 Assessment/Plan Assessment/Plan Chief Complaint/Hosp Course Assessment 1. Acute alcoholic hepatitis, high discriminant function which denotes high mortality and benefit for steroid treatment Marked leukocytosis. Fairly common finding in patients with alcoholic hepatitis especially in treatment with steroids Chronic alcoholism Polysubstance abuse/poor compliance Edema bilateral acute kidney injury 2. Abdominal pain. Etiology could be from underlying alcoholic hepatitis. CT scan of the abdomen and pelvis showed hepatosplenomegaly and small to moderate ascites with ill-defined consolidation in the anterior segment of the right upper lobe. 3. Transaminitis with hyperbilirubinemia. Most probably secondary to underlying alcoholic liver disease. Hepatotoxic drugs will be avoided on this patient. 4. Alcohol abuse. 5. Coagulopathy. Most probably secondary to underlying acute alcoholic liver disease. The patient will be monitored closely for any bleeding. 6. Persistent leukocytosis. Status post evaluation by hematology. No evidence of malignancy. Leukocytosis secondary to underlying inflammation. Plan: -Trend liver enzymes/white blood cell count - Abstinence critical to his recovery and lifespan is discussed and re-enforced. Problems: Consultation Date/Type/Reason Admit Date/Time Jan 19, 2017 at 06:11 Initial Consult Date 01/25/17 Type of Consultation: GI Referring Provider: BRENNON RASMUSSEN [employer] Exam/Review of Systems Vital Signs Vitals Vital Signs Date Time Temp Pulse Resp B/P Pulse Ox O2 Delivery O2 Flow Rate FiO2 02/05/17 08:00 98.6 83 20 115/59 96 Intake and Output 02/04/17 02/04/17 02/05/17 15:00 23:00 07:00 Intake Total 1520 ml Output Total 1525 ml Balance -5 ml Results Result Diagram: 02/05/17 0435 02/05/17 0435 Results 24 hrs Laboratory Tests Test 02/05/17 04:35 White Blood Count 52.3 H Red Blood Count 2.43 L Hemoglobin 8.2 L Hematocrit 25.0 L Mean Corpuscular Volume 102.9 H Mean Corpuscular Hemoglobin 33.7 H Mean Corpuscular Hemoglobin Concent 32.8 Red Cell Distribution Width 19.0 H Platelet Count 172 Mean Platelet Volume 11.6 H Neutrophils % 88.6 H Lymphocytes % 3.1 L Monocytes % 3.2 Eosinophils % 2.7 Basophils % 0.0 Nucleated Red Blood Cells % 0.0 Neutrophils # 46.3 H Lymphocytes # 1.6 Monocytes # 1.7 H Eosinophils # 1.4 H Basophils # 0.0 Nucleated Red Blood Cells # 0.0 Sodium Level 133 L Potassium Level 3.6 Chloride Level 100 Carbon Dioxide Level 23 Anion Gap 14 Blood Urea Nitrogen 10 Creatinine 0.44 L Glucose Level 87 Calcium Level 8.2 L Phosphorus Level 3.7 Magnesium Level 2.0 Total Bilirubin 10.3 H Direct Bilirubin 8.10 H Indirect Bilirubin 2.2 H Aspartate Amino Transf (AST/SGOT) 40 Alanine Aminotransferase (ALT/SGPT) 43 Alkaline Phosphatase 294 H Total Protein 5.6 L Albumin 2.8 L Globulin 2.80 Albumin/Globulin Ratio 1.00 Medications Medications Current Medications Ondansetron HCl (Zofran Inj) 4 mg Q6H PRN IV NAUSEA AND/OR VOMITING Last administered on 02/05/17 04:48; Admin Dose 4 MG; Start 01/19/17 at 09:00 Ergocalciferol (Drisdol) 50,000 unit Q7D PO Last administered on 02/03/17 08: 57; Admin Dose 50,000 UNIT; Start 01/20/17 at 09:00 Folic Acid (Folic Acid) 2 mg DAILY PO Last administered on 02/05/17 09:07; Admin Dose 2 MG; Start 01/20/17 at 09:00 Hydrocortisone (Anusol-Hc Supp) 25 mg TID PRN [place] HEMORROID PAIN/ITCHING; Start 01/19/17 at 11:30 Propranolol HCl (Inderal) 10 mg TID PO Last administered on 02/05/17 09:08; Admin Dose 10 MG; Start 01/19/17 at 13:00 Senna/Docusate Sodium (Senokot-S) 2 tab HS PO Last administered on 02/04/17 20 :47; Admin Dose 2 TAB; Start 01/19/17 at 21:00 Methylprednisolone (Medrol) 32 mg DAILY PO Last administered on 02/05/17 09:07 ; Admin Dose 32 MG; Start 01/19/17 at 13:00; Stop 02/16/17 at 12:59 Lorazepam (Ativan) 0.5 mg Q6H PRN PO ANXIETY Last administered on 02/05/17 01: 57; Admin Dose 0.5 MG; Start 01/20/17 at 17:00 Morphine Sulfate (morphine) 3 mg Q4H PRN IV PAIN LEVEL 7-10 Last administered on 02/05/17 09:08; Admin Dose 3 MG; Start 01/26/17 at 13:00 Guaifenesin/ Codeine Phosphate (Robitussin Ac Liquid Cup) 10 ml Q4H PRN PO COUGH Last administered on 02/05/17 09:20; Admin Dose 10 ML; Start 01/28/17 at 16:30 Thiamine HCl (Vitamin B1) 100 mg DAILY PO Last administered on 02/05/17 09:07 ; Admin Dose 100 MG; Start 01/31/17 at 10:00; Stop 02/07/17 at 09:59 Furosemide (Lasix) 40 mg DAILY PO Last administered on 02/05/17 09:06; Admin Dose 40 MG; Start 01/31/17 at 10:00 Pantoprazole (Protonix Tab) 40 mg DAILY@06 PO Last administered on 02/05/17 05 :00; Admin Dose 40 MG; Start 02/01/17 at 06:00 Spironolactone (Aldactone) 50 mg DAILY PO Last administered on 02/05/17 09:06 ; Admin Dose 50 MG; Start 02/01/17 at 10:00 FRANDY HODGES MD Feb 05, 2017 11:28
--- NOTE | 2017-02-05 13:20 | PN ---
Date/Time of Note Date/Time of Note DATE: 02/05/17 TIME: 13:19 Assessment/Plan VTE Prophylaxis VTE Prophylaxis Intervention: contraindicated Lines/Catheters IV [facility] Type [facility]from [facility] Saline Lock Urinary Cath still in place: No Assessment/Plan Chief Complaint/Hosp Course 1. Abdominal pain. Etiology could be from underlying alcoholic hepatitis. CT scan of the abdomen and pelvis showed hepatosplenomegaly and small to moderate ascites with ill-defined consolidation in the anterior segment of the right upper lobe. 2. Transaminitis with hyperbilirubinemia. Most probably secondary to underlying alcoholic liver disease. Hepatotoxic drugs will be avoided on this patient. 3. Alcoholic hepatitis. The patient will be continued on steroids as per recommendations of gastroenterology. Gastroenterology following. 4. Alcohol abuse. The patient denies any recent history of alcohol abuse. The patient will be reinforced to avoid using any alcohol. 5. Coagulopathy. Most probably secondary to underlying acute alcoholic liver disease. The patient will be monitored closely for any bleeding. 6. Persistent leukocytosis. Status post evaluation by hematology. No evidence of malignancy. Leukocytosis secondary to underlying inflammation. 7. Hyponatremia. Monitor. 8. Fluids, electrolytes, and nutrition. Regular diet as tolerated. 9. DVT prophylaxis. Contraindicated. 10. Gastrointestinal prophylaxis. Proton pump inhibitors. 11. Plan. No evidence of any malignancy as per hematology. Leukocytosis are getting worse. Will await until the WBCs are trending down for discharging the patient home. Case discussed with Dr. Jenkins. Problems: Subjective 24 Hr Interval Summary Free Text/Dictation Continues to have a leukocytosis. Remains afebrile. Exam/Review of Systems Vital Signs Vitals Vital Signs Date Time Temp Pulse Resp B/P Pulse Ox O2 Delivery O2 Flow Rate FiO2 02/05/17 08:00 98.6 83 20 115/59 96 Intake and Output 02/04/17 02/04/17 02/05/17 15:00 23:00 07:00 Intake Total 1520 ml Output Total 1525 ml Balance -5 ml Exam GENERAL: This is an obese male lying in bed in no apparent distress. HEENT: Head normocephalic and atraumatic. Eyes: Icteric sclerae. Conjunctivae clear. ENT: Nasal septum midline. Oral mucosa is dry. NECK: Supple. No JVD noticed. RESPIRATORY: Bilateral diminished breath sounds. No adventitious breath sounds heard. No use of accessory muscles of respiration. CARDIAC: Regular rate. S1 and S2 heard. ABDOMEN: Diffuse tenderness specifically in the right upper quadrant, epigastric and left upper quadrant. No rebound tenderness or guarding. GENITOURINARY: Deferred. EXTREMITIES: No cyanosis, no clubbing. Bilateral lower extremity 1+ pitting edema. Peripheral pulses palpable. NEUROLOGIC: The patient is awake, alert and oriented. Cranial nerves are grossly intact. SKIN: Generalized icterus. Results Result Diagram: 02/05/17 0435 02/05/17 0435 Results 24 hrs Laboratory Tests Test 02/05/17 04:35 White Blood Count 52.3 H Red Blood Count 2.43 L Hemoglobin 8.2 L Hematocrit 25.0 L Mean Corpuscular Volume 102.9 H Mean Corpuscular Hemoglobin 33.7 H Mean Corpuscular Hemoglobin Concent 32.8 Red Cell Distribution Width 19.0 H Platelet Count 172 Mean Platelet Volume 11.6 H Neutrophils % 88.6 H Lymphocytes % 3.1 L Monocytes % 3.2 Eosinophils % 2.7 Basophils % 0.0 Nucleated Red Blood Cells % 0.0 Neutrophils # 46.3 H Lymphocytes # 1.6 Monocytes # 1.7 H Eosinophils # 1.4 H Basophils # 0.0 Nucleated Red Blood Cells # 0.0 Sodium Level 133 L Potassium Level 3.6 Chloride Level 100 Carbon Dioxide Level 23 Anion Gap 14 Blood Urea Nitrogen 10 Creatinine 0.44 L Glucose Level 87 Calcium Level 8.2 L Phosphorus Level 3.7 Magnesium Level 2.0 Total Bilirubin 10.3 H Direct Bilirubin 8.10 H Indirect Bilirubin 2.2 H Aspartate Amino Transf (AST/SGOT) 40 Alanine Aminotransferase (ALT/SGPT) 43 Alkaline Phosphatase 294 H Total Protein 5.6 L Albumin 2.8 L Globulin 2.80 Albumin/Globulin Ratio 1.00 Medications Medications Current Medications Ondansetron HCl (Zofran Inj) 4 mg Q6H PRN IV NAUSEA AND/OR VOMITING Last administered on 02/05/17 13:06; Admin Dose 4 MG; Start 01/19/17 at 09:00 Ergocalciferol (Drisdol) 50,000 unit Q7D PO Last administered on 02/03/17 08: 57; Admin Dose 50,000 UNIT; Start 01/20/17 at 09:00 Folic Acid (Folic Acid) 2 mg DAILY PO Last administered on 02/05/17 09:07; Admin Dose 2 MG; Start 01/20/17 at 09:00 Hydrocortisone (Anusol-Hc Supp) 25 mg TID PRN [place] HEMORROID PAIN/ITCHING; Start 01/19/17 at 11:30 Propranolol HCl (Inderal) 10 mg TID PO Last administered on 02/05/17 09:08; Admin Dose 10 MG; Start 01/19/17 at 13:00 Senna/Docusate Sodium (Senokot-S) 2 tab HS PO Last administered on 02/04/17 20 :47; Admin Dose 2 TAB; Start 01/19/17 at 21:00 Methylprednisolone (Medrol) 32 mg DAILY PO Last administered on 02/05/17 09:07 ; Admin Dose 32 MG; Start 01/19/17 at 13:00; Stop 02/16/17 at 12:59 Lorazepam (Ativan) 0.5 mg Q6H PRN PO ANXIETY Last administered on 02/05/17 01: 57; Admin Dose 0.5 MG; Start 01/20/17 at 17:00 Morphine Sulfate (morphine) 3 mg Q4H PRN IV PAIN LEVEL 7-10 Last administered on 02/05/17 13:06; Admin Dose 3 MG; Start 01/26/17 at 13:00 Guaifenesin/ Codeine Phosphate (Robitussin Ac Liquid Cup) 10 ml Q4H PRN PO COUGH Last administered on 02/05/17 09:20; Admin Dose 10 ML; Start 01/28/17 at 16:30 Thiamine HCl (Vitamin B1) 100 mg DAILY PO Last administered on 02/05/17 09:07 ; Admin Dose 100 MG; Start 01/31/17 at 10:00; Stop 02/07/17 at 09:59 Furosemide (Lasix) 40 mg DAILY PO Last administered on 02/05/17 09:06; Admin Dose 40 MG; Start 01/31/17 at 10:00 Pantoprazole (Protonix Tab) 40 mg DAILY@06 PO Last administered on 02/05/17 05 :00; Admin Dose 40 MG; Start 02/01/17 at 06:00 Spironolactone (Aldactone) 50 mg DAILY PO Last administered on 02/05/17 09:06 ; Admin Dose 50 MG; Start 02/01/17 at 10:00 BRENNON RASMUSSEN NP Feb 05, 2017 13:20
[2017-02-05] MEDS: SENNA/DOCUSATE NA (8.6MG/50MG) TAB PO SCH (20:08)
[2017-02-05 22:54] VITALS: BP 110/55; RESP 18
[2017-02-06] MEDS: LORAZEPAM 0.5 MG TAB PO PRN ×4 (02:10→22:40)
[2017-02-06] MEDS: ONDANSETRON 4 MG INJ IV PRN ×4 (02:10→22:40)
[2017-02-06] MEDS: GUAIFENESIN/CODEINE 5ML CUP PO PRN ×5 (03:32→21:42)
[2017-02-06] MEDS: morphine 4 MG/ML VIAL IV PRN ×5 (03:33→21:44)
[2017-02-06] MEDS: PANTOPRAZOLE (EC) 40 MG TAB PO SCH (05:21)
[2017-02-06 06:21] LABS: ABNORMAL IP MESSAGE 1; HEMOGLOBIN 9.4 g/dl (14.0-18.0); MEAN CORPUSCULAR HEMOGLOBIN 34.8 pg (29.0-33.0); MEAN CORPUSCULAR HGB CONC 33.6 g/dl (32.0-37.0); MEAN CORPUSCULAR VOLUME 103.7 fl (82.0-101.0); MEAN PLATELET VOLUME 11.6 fl (7.4-10.4); PLATELET COUNT 231 10^3/UL (140-415); RED CELL DISTRIBUTION WIDTH 19.2 % (11.5-14.5); WHITE BLOOD COUNT 64.9 10^3/ul (4.8-10.8)
[2017-02-06 06:43] LABS: MAGNESIUM 2.1 mg/dl (1.7-2.5); PHOSPHORUS 4.2 mg/dl (2.5-4.9)
[2017-02-06 06:53] LABS: ALBUMIN 3.5 g/dl (3.3-4.9); ALBUMIN/GLOBULIN RATIO 1.09; BILIRUBIN,DIRECT 10.3 mg/dl (0.00-0.20); BILIRUBIN,INDIRECT 2.5 mg/dl (0-1.1); BILIRUBIN,TOTAL 12.8 mg/dl (0.2-1.3); CALCIUM 8.6 mg/dl (8.4-10.2); CREATININE 0.55 mg/dl (0.61-1.24); POTASSIUM 3.9 mmol/L (3.5-5.1); TOTAL PROTEIN 6.7 g/dl (6.1-8.1)
[2017-02-06] MEDS: FOLIC ACID 1 MG TAB PO SCH (08:32)
[2017-02-06] MEDS: METHYLPREDNISOLONE 4 MG TAB PO SCH (08:32)
[2017-02-06] MEDS: SPIRONOLACTONE 50 MG TAB PO SCH (08:32)
[2017-02-06] MEDS: FUROSEMIDE 40 MG TAB PO SCH (08:33)
[2017-02-06] MEDS: THIAMINE 100 MG TAB PO SCH (08:33)
[2017-02-06] MEDS: PROPRANOLOL 10 MG TAB PO SCH ×3 (08:34→21:44)
[2017-02-06 08:50] VITALS: BP 104/56; RESP 17
[2017-02-06 09:50] LABS: EOSINOPHILS # 2.6 10^3/ul (0.0-0.5); LYMPHOCYTES # 1.9 10^3/ul (0.8-2.9); MONOCYTE # 2.6 10^3/ul (0.3-0.9); NEUTROPHIL # 51.9 10^3/ul (1.6-7.5)
[2017-02-06 09:51] LABS: TOXIC GRANULATION 1+
[2017-02-06 09:56] LABS: ADD SCAN DIFF NO
--- NOTE | 2017-02-06 11:07 | PN ---
Date/Time of Note Date/Time of Note DATE: 02/06/17 TIME: 11:03 Assessment/Plan VTE Prophylaxis VTE Prophylaxis Intervention: contraindicated Lines/Catheters IV [facility] Type (from [facility] Saline Lock Urinary Cath still in place: No Assessment/Plan Chief Complaint/Hosp Course A/P: 31 M with: 1. Abdominal pain. Etiology could be from underlying alcoholic hepatitis. CT scan of the abdomen and pelvis showed hepatosplenomegaly and small to moderate ascites with ill-defined consolidation in the anterior segment of the right upper lobe. - monitor, pain meds 2. Transaminitis with hyperbilirubinemia. Most probably secondary to underlying alcoholic liver disease. - Hepatotoxic drugs will be avoided on this patient. - monitor LFT's 3. Alcoholic hepatitis. The patient will be continued on steroids as per recommendations of gastroenterology. Gastroenterology following. 4. Alcohol abuse. The patient denies any recent history of alcohol abuse. The patient will be reinforced to avoid using any alcohol. 5. Coagulopathy. Most probably secondary to underlying acute alcoholic liver disease. The patient will be monitored closely for any bleeding. 6. Persistent leukocytosis. Status post evaluation by hematology. No evidence of malignancy. Leukocytosis secondary to underlying inflammation. 7. Hyponatremia - asymptomatic - monitor. 8. Fluids, electrolytes, and nutrition. Regular diet as tolerated. 9. DVT prophylaxis. Contraindicated. 10. Gastrointestinal prophylaxis. Proton pump inhibitors. 11. Plan. No evidence of any malignancy as per hematology. Leukocytosis are getting worse. Will await until the WBCs are trending down for discharging the patient home. Problems: Subjective 24 Hr Interval Summary Free Text/Dictation No acute events overnight. Exam/Review of Systems Vital Signs Vitals Vital Signs Date Time Temp Pulse Resp B/P Pulse Ox O2 Delivery O2 Flow Rate FiO2 02/06/17 08:50 98.1 86 17 104/56 97 Intake and Output 02/05/17 02/05/17 02/06/17 15:00 23:00 07:00 Intake Total 1620 ml 1780 ml Output Total 2500 ml 2700 ml Balance -880 ml -920 ml Exam GENERAL: obese male lying in bed in no apparent distress. HEENT: Head normocephalic and atraumatic. Eyes: Icteric sclerae. Conjunctivae clear. ENT: Nasal septum midline. Oral mucosa is dry. NECK: Supple. No JVD noticed. RESPIRATORY: some bilateral diminished breath sounds. No adventitious breath sounds heard. No use of accessory muscles of respiration. CARDIAC: Regular rate. S1 and S2 heard. ABDOMEN: + tenderness specifically in the right upper quadrant, epigastric and left upper quadrant. No rebound tenderness or guarding. EXTREMITIES: No cyanosis, no clubbing. Bilateral lower extremity 1+ pitting edema. Peripheral pulses palpable. NEUROLOGIC: The patient is awake, alert and oriented. Cranial nerves are grossly intact. Results Result Diagram: 02/06/1745 02/06/17 0545 Results 24 hrs Laboratory Tests Test 02/06/17 04:45 02/06/17 05:45 Phosphorus Level 4.2 Magnesium Level 2.1 HIV (1&2) Antibody NEGATIVE White Blood Count 64.9 #H Red Blood Count 2.70 L Hemoglobin 9.4 L Hematocrit 28.0 L Mean Corpuscular Volume 103.7 H Mean Corpuscular Hemoglobin 34.8 H Mean Corpuscular Hemoglobin Concent 33.6 Red Cell Distribution Width 19.2 H Platelet Count 231 # Mean Platelet Volume 11.6 H Neutrophils % 80.0 H Band Neutrophils % 9.0 H Lymphocytes % 3.0 L Monocytes % 4.0 Eosinophils % 4.0 Basophils % Neutrophils # 51.9 H Lymphocytes # 1.9 Monocytes # 2.6 H Eosinophils # 2.6 H Basophils # Differential Comment MANUAL DIFF Toxic Granulation 1+ Macrocytosis 1+ Sodium Level 132 L Potassium Level 3.9 Chloride Level 97 Carbon Dioxide Level 28 Anion Gap 11 Blood Urea Nitrogen 9 Creatinine 0.55 L Glucose Level 89 Calcium Level 8.6 Total Bilirubin 12.8 H Direct Bilirubin 10.30 H Indirect Bilirubin 2.5 H Aspartate Amino Transf (AST/SGOT) 44 Alanine Aminotransferase (ALT/SGPT) 47 Alkaline Phosphatase 365 H Total Protein 6.7 # Albumin 3.5 Globulin 3.20 Albumin/Globulin Ratio 1.09 Medications Medications Current Medications Ondansetron HCl (Zofran Inj) 4 mg Q6H PRN IV NAUSEA AND/OR VOMITING Last administered on 02/06/17 09:31; Admin Dose 4 MG; Start 01/19/17 at 09:00 Ergocalciferol (Drisdol) 50,000 unit Q7D PO Last administered on 02/03/17 08: 57; Admin Dose 50,000 UNIT; Start 01/20/17 at 09:00 Folic Acid (Folic Acid) 2 mg DAILY PO Last administered on 02/06/17 08:32; Admin Dose 2 MG; Start 01/20/17 at 09:00 Hydrocortisone (Anusol-Hc Supp) 25 mg TID PRN [place] HEMORROID PAIN/ITCHING; Start 01/19/17 at 11:30 Propranolol HCl (Inderal) 10 mg TID PO Last administered on 02/06/17 08:34; Admin Dose 10 MG; Start 01/19/17 at 13:00 Senna/Docusate Sodium (Senokot-S) 2 tab HS PO Last administered on 02/05/17 20 :08; Admin Dose 2 TAB; Start 01/19/17 at 21:00 Methylprednisolone (Medrol) 32 mg DAILY PO Last administered on 02/06/17 08:32 ; Admin Dose 32 MG; Start 01/19/17 at 13:00; Stop 02/16/17 at 12:59 Lorazepam (Ativan) 0.5 mg Q6H PRN PO ANXIETY Last administered on 02/06/17 09: 31; Admin Dose 0.5 MG; Start 01/20/17 at 17:00 Morphine Sulfate (morphine) 3 mg Q4H PRN IV PAIN LEVEL 7-10 Last administered on 02/06/17 08:34; Admin Dose 3 MG; Start 01/26/17 at 13:00 Guaifenesin/ Codeine Phosphate (Robitussin Ac Liquid Cup) 10 ml Q4H PRN PO COUGH Last administered on 02/06/17 08:33; Admin Dose 10 ML; Start 01/28/17 at 16:30 Thiamine HCl (Vitamin B1) 100 mg DAILY PO Last administered on 02/06/17 08:33 ; Admin Dose 100 MG; Start 01/31/17 at 10:00; Stop 02/07/17 at 09:59 Furosemide (Lasix) 40 mg DAILY PO Last administered on 02/06/17 08:33; Admin Dose 40 MG; Start 01/31/17 at 10:00 Pantoprazole (Protonix Tab) 40 mg DAILY@06 PO Last administered on 02/06/17 05 :21; Admin Dose 40 MG; Start 02/01/17 at 06:00 Spironolactone (Aldactone) 50 mg DAILY PO Last administered on 02/06/17 08:32 ; Admin Dose 50 MG; Start 02/01/17 at 10:00 HEATHER GORDON Feb 06, 2017 11:07
--- NOTE | 2017-02-06 13:07 | CONS ---
Date/Time of Note Date/Time of Note DATE: 02/06/17 TIME: 13:07 Assessment/Plan Assessment/Plan Chief Complaint/Hosp Course Assessment 1. Acute alcoholic hepatitis, high discriminant function which denotes high mortality and benefit for steroid treatment Marked leukocytosis. Fairly common finding in patients with alcoholic hepatitis especially in treatment with steroids Chronic alcoholism Polysubstance abuse/poor compliance Edema bilateral acute kidney injury 2. Abdominal pain. Etiology could be from underlying alcoholic hepatitis. CT scan of the abdomen and pelvis showed hepatosplenomegaly and small to moderate ascites with ill-defined consolidation in the anterior segment of the right upper lobe. 3. Transaminitis with hyperbilirubinemia. Most probably secondary to underlying alcoholic liver disease. Hepatotoxic drugs will be avoided on this patient. 4. Alcohol abuse. 5. Coagulopathy. Most probably secondary to underlying acute alcoholic liver disease. The patient will be monitored closely for any bleeding. 6. Persistent leukocytosis. Status post evaluation by hematology. No evidence of malignancy. Leukocytosis secondary to underlying inflammation. Plan: -Trend liver enzymes/white blood cell count - Abstinence critical to his recovery and lifespan is discussed and re-enforced. Problems: Consultation Date/Type/Reason Admit Date/Time Jan 19, 2017 at 06:11 Initial Consult Date 01/25/17 Type of Consultation: GI Referring Provider: BRENNON RASMUSSEN NP 24 HR Interval Summary Free Text/Dictation improved, no n/v Constitutional: improved Exam/Review of Systems Vital Signs Vitals Vital Signs Date Time Temp Pulse Resp B/P Pulse Ox O2 Delivery O2 Flow Rate FiO2 02/06/17 08:50 98.1 86 17 104/56 97 Intake and Output 02/05/17 02/05/17 02/06/17 14:59 22:59 06:59 Intake Total 1620 ml 1780 ml Output Total 2500 ml 2700 ml Balance -880 ml -920 ml Exam Constitutional: alert, oriented, well developed Psych: nl mood/affect, no complaints Head: atraumatic, normocephalic Eyes: nl lids ENMT: mucosa pink and moist, nl external ears & nose, nl lips & teeth, nl nasal mucosa & septum Neck: non-tender, supple Respiratory: clear to auscultation, normal air movement Cardiovascular: nl pulses, regular rate and rhythm Gastrointestinal: bowel sounds, non-tender, soft Results Result Diagram: 02/06/17 0545 02/06/17 0545 Results 24 hrs Laboratory Tests Test 02/06/17 04:45 02/06/17 05:45 Phosphorus Level 4.2 Magnesium Level 2.1 HIV (1&2) Antibody NEGATIVE White Blood Count 64.9 #H Red Blood Count 2.70 L Hemoglobin 9.4 L Hematocrit 28.0 L Mean Corpuscular Volume 103.7 H Mean Corpuscular Hemoglobin 34.8 H Mean Corpuscular Hemoglobin Concent 33.6 Red Cell Distribution Width 19.2 H Platelet Count 231 # Mean Platelet Volume 11.6 H Neutrophils % 80.0 H Band Neutrophils % 9.0 H Lymphocytes % 3.0 L Monocytes % 4.0 Eosinophils % 4.0 Basophils % Neutrophils # 51.9 H Lymphocytes # 1.9 Monocytes # 2.6 H Eosinophils # 2.6 H Basophils # Differential Comment MANUAL DIFF Toxic Granulation 1+ Macrocytosis 1+ Sodium Level 132 L Potassium Level 3.9 Chloride Level 97 Carbon Dioxide Level 28 Anion Gap 11 Blood Urea Nitrogen 9 Creatinine 0.55 L Glucose Level 89 Calcium Level 8.6 Total Bilirubin 12.8 H Direct Bilirubin 10.30 H Indirect Bilirubin 2.5 H Aspartate Amino Transf (AST/SGOT) 44 Alanine Aminotransferase (ALT/SGPT) 47 Alkaline Phosphatase 365 H Total Protein 6.7 # Albumin 3.5 Globulin 3.20 Albumin/Globulin Ratio 1.09 Medications Medications Current Medications Ondansetron HCl (Zofran Inj) 4 mg Q6H PRN IV NAUSEA AND/OR VOMITING Last administered on 02/06/17 09:31; Admin Dose 4 MG; Start 01/19/17 at 09:00 Ergocalciferol (Drisdol) 50,000 unit Q7D PO Last administered on 02/03/17 08: 57; Admin Dose 50,000 UNIT; Start 01/20/17 at 09:00 Folic Acid (Folic Acid) 2 mg DAILY PO Last administered on 02/06/17 08:32; Admin Dose 2 MG; Start 01/20/17 at 09:00 Hydrocortisone (Anusol-Hc Supp) 25 mg TID PRN [place] HEMORROID PAIN/ITCHING; Start 01/19/17 at 11:30 Propranolol HCl (Inderal) 10 mg TID PO Last administered on 02/06/17 12:38; Admin Dose 10 MG; Start 01/19/17 at 13:00 Senna/Docusate Sodium (Senokot-S) 2 tab HS PO Last administered on 02/05/17 20 :08; Admin Dose 2 TAB; Start 01/19/17 at 21:00 Methylprednisolone (Medrol) 32 mg DAILY PO Last administered on 02/06/17 08:32 ; Admin Dose 32 MG; Start 01/19/17 at 13:00; Stop 02/16/17 at 12:59 Lorazepam (Ativan) 0.5 mg Q6H PRN PO ANXIETY Last administered on 02/06/17 09: 31; Admin Dose 0.5 MG; Start 01/20/17 at 17:00 Morphine Sulfate (morphine) 3 mg Q4H PRN IV PAIN LEVEL 7-10 Last administered on 02/06/17 12:39; Admin Dose 3 MG; Start 01/26/17 at 13:00 Guaifenesin/ Codeine Phosphate (Robitussin Ac Liquid Cup) 10 ml Q4H PRN PO COUGH Last administered on 02/06/17 12:39; Admin Dose 10 ML; Start 01/28/17 at 16:30 Thiamine HCl (Vitamin B1) 100 mg DAILY PO Last administered on 02/06/17 08:33 ; Admin Dose 100 MG; Start 01/31/17 at 10:00; Stop 02/07/17 at 09:59 Furosemide (Lasix) 40 mg DAILY PO Last administered on 02/06/17 08:33; Admin Dose 40 MG; Start 01/31/17 at 10:00 Pantoprazole (Protonix Tab) 40 mg DAILY@06 PO Last administered on 02/06/17 05 :21; Admin Dose 40 MG; Start 02/01/17 at 06:00 Spironolactone (Aldactone) 50 mg DAILY PO Last administered on 02/06/17 08:32 ; Admin Dose 50 MG; Start 02/01/17 at 10:00 FRANDY HODGES MD Feb 06, 2017 13:07
[2017-02-06] MEDS: SENNA/DOCUSATE NA (8.6MG/50MG) TAB PO SCH (21:42)
[2017-02-06] MEDS: CEPASTAT LOZENGE MT PRN (22:38)
[2017-02-06 23:19] VITALS: BP 120/63; RESP 18
[2017-02-07] MEDS: GUAIFENESIN/CODEINE 5ML CUP PO PRN ×4 (01:56→14:33)
[2017-02-07] MEDS: morphine 4 MG/ML VIAL IV PRN ×4 (01:58→14:00)
[2017-02-07] MEDS: PANTOPRAZOLE (EC) 40 MG TAB PO SCH (05:56)
[2017-02-07] MEDS: CEPASTAT LOZENGE MT PRN (06:02)
[2017-02-07 06:09] LABS: ABNORMAL IP MESSAGE 1; HEMATOCRIT 24.9 % (42.0-52.0); HEMOGLOBIN 8.4 g/dl (14.0-18.0); MEAN CORPUSCULAR HEMOGLOBIN 34.6 pg (29.0-33.0); MEAN CORPUSCULAR HGB CONC 33.7 g/dl (32.0-37.0); MEAN CORPUSCULAR VOLUME 102.5 fl (82.0-101.0); MEAN PLATELET VOLUME 11.5 fl (7.4-10.4); PLATELET COUNT 193 10^3/UL (140-415); RED BLOOD COUNT 2.43 10^6/ul (4.70-6.10); RED CELL DISTRIBUTION WIDTH 18.6 % (11.5-14.5); WHITE BLOOD COUNT 50.4 10^3/ul (4.8-10.8)
[2017-02-07] MEDS: LORAZEPAM 0.5 MG TAB PO PRN ×2 (06:43→12:48)
[2017-02-07] MEDS: ONDANSETRON 4 MG INJ IV PRN ×2 (06:43→12:48)
[2017-02-07 08:00] VITALS: BP 112/59; RESP 20
[2017-02-07] MEDS: FOLIC ACID 1 MG TAB PO SCH (08:11)
[2017-02-07] MEDS: SPIRONOLACTONE 50 MG TAB PO SCH (08:11)
[2017-02-07] MEDS: METHYLPREDNISOLONE 4 MG TAB PO SCH (08:11)
[2017-02-07] MEDS: THIAMINE 100 MG TAB PO SCH (08:11)
[2017-02-07] MEDS: FUROSEMIDE 40 MG TAB PO SCH (08:11)
[2017-02-07] MEDS: PROPRANOLOL 10 MG TAB PO SCH ×2 (08:12→12:48)
[2017-02-07 08:28] LABS: ALBUMIN 2.9 g/dl (3.3-4.9); BILIRUBIN,DIRECT 7.8 mg/dl (0.00-0.20); BILIRUBIN,INDIRECT 2.4 mg/dl (0-1.1); BILIRUBIN,TOTAL 10.2 mg/dl (0.2-1.3); TOTAL PROTEIN 5.5 g/dl (6.1-8.1)
--- NOTE | 2017-02-07 10:58 | PN ---
Date/Time of Note Date/Time of Note DATE: 02/07/17 TIME: 10:57 Assessment/Plan VTE Prophylaxis VTE Prophylaxis Intervention: contraindicated Lines/Catheters IV [facility]atheter Type [facility]from [facility]): [facility] Urinary Cath still in place: No Assessment/Plan Chief Complaint/Hosp Course 1. Abdominal pain. Etiology could be from underlying alcoholic hepatitis. CT scan of the abdomen and pelvis showed hepatosplenomegaly and small to moderate ascites with ill-defined consolidation in the anterior segment of the right upper lobe. 2. Transaminitis with hyperbilirubinemia. Most probably secondary to underlying alcoholic liver disease. Hepatotoxic drugs will be avoided on this patient. 3. Alcoholic hepatitis. The patient will be continued on steroids as per recommendations of gastroenterology. Gastroenterology following. 4. Alcohol abuse. The patient denies any recent history of alcohol abuse. The patient will be reinforced to avoid using any alcohol. 5. Coagulopathy. Most probably secondary to underlying acute alcoholic liver disease. The patient will be monitored closely for any bleeding. 6. Persistent leukocytosis. Status post evaluation by hematology. No evidence of malignancy. Leukocytosis secondary to underlying inflammation. 7. Hyponatremia. Monitor. 8. Fluids, electrolytes, and nutrition. Regular diet as tolerated. 9. DVT prophylaxis. Contraindicated. 10. Gastrointestinal prophylaxis. Proton pump inhibitors. 11. Plan. No evidence of any malignancy as per hematology. Leukocytosis are getting worse. Will await until cleared by gastroenterology and once the WBCs are trending down for discharging the patient home. Case discussed with Dr. Jenkins. Problems: Subjective 24 Hr Interval Summary Free Text/Dictation Patient remains afebrile. Exam/Review of Systems Vital Signs Vitals Vital Signs Date Time Temp Pulse Resp B/P Pulse Ox O2 Delivery O2 Flow Rate FiO2 02/07/17 08:00 98.8 76 20 112/59 96 Intake and Output 02/06/17 02/06/17 02/07/17 15:00 23:00 07:00 Intake Total 930 ml 980 ml Output Total 1925 ml 700 ml Balance -995 ml 280 ml Exam GENERAL: This is an obese male lying in bed in no apparent distress. HEENT: Head normocephalic and atraumatic. Eyes: Icteric sclerae. Conjunctivae clear. ENT: Nasal septum midline. Oral mucosa is dry. NECK: Supple. No JVD noticed. RESPIRATORY: Bilateral diminished breath sounds. No adventitious breath sounds heard. No use of accessory muscles of respiration. CARDIAC: Regular rate. S1 and S2 heard. ABDOMEN: Diffuse tenderness specifically in the right upper quadrant, epigastric and left upper quadrant. No rebound tenderness or guarding. GENITOURINARY: Deferred. EXTREMITIES: No cyanosis, no clubbing. Bilateral lower extremity 1+ pitting edema. Peripheral pulses palpable. NEUROLOGIC: The patient is awake, alert and oriented. Cranial nerves are grossly intact. SKIN: Generalized icterus. Results Result Diagram: 02/07/17 0540 02/06/17 0545 Results 24 hrs Laboratory Tests Test 02/07/17 05:40 White Blood Count 50.4 #H Red Blood Count 2.43 L Hemoglobin 8.4 L Hematocrit 24.9 L Mean Corpuscular Volume 102.5 H Mean Corpuscular Hemoglobin 34.6 H Mean Corpuscular Hemoglobin Concent 33.7 Red Cell Distribution Width 18.6 H Platelet Count 193 Mean Platelet Volume 11.5 H Basophils % Basophils # Total Bilirubin 10.2 H Direct Bilirubin 7.80 #H Indirect Bilirubin 2.4 H Aspartate Amino Transf (AST/SGOT) 36 Alanine Aminotransferase (ALT/SGPT) 36 Alkaline Phosphatase 298 H Total Protein 5.5 #L Albumin 2.9 L Medications Medications Current Medications Ondansetron HCl (Zofran Inj) 4 mg Q6H PRN IV NAUSEA AND/OR VOMITING Last administered on 02/07/17 06:43; Admin Dose 4 MG; Start 01/19/17 at 09:00 Ergocalciferol (Drisdol) 50,000 unit Q7D PO Last administered on 02/03/17 08: 57; Admin Dose 50,000 UNIT; Start 01/20/17 at 09:00 Folic Acid (Folic Acid) 2 mg DAILY PO Last administered on 02/07/17 08:11; Admin Dose 2 MG; Start 01/20/17 at 09:00 Hydrocortisone (Anusol-Hc Supp) 25 mg TID PRN [place] HEMORROID PAIN/ITCHING; Start 01/19/17 at 11:30 Propranolol HCl (Inderal) 10 mg TID PO Last administered on 02/07/17 08:12; Admin Dose 10 MG; Start 01/19/17 at 13:00 Senna/Docusate Sodium (Senokot-S) 2 tab HS PO Last administered on 02/06/17 21 :42; Admin Dose 2 TAB; Start 01/19/17 at 21:00 Methylprednisolone (Medrol) 32 mg DAILY PO Last administered on 02/07/17 08:11 ; Admin Dose 32 MG; Start 01/19/17 at 13:00; Stop 02/16/17 at 12:59 Lorazepam (Ativan) 0.5 mg Q6H PRN PO ANXIETY Last administered on 02/07/17 06: 43; Admin Dose 0.5 MG; Start 01/20/17 at 17:00 Morphine Sulfate (morphine) 3 mg Q4H PRN IV PAIN LEVEL 7-10 Last administered on 02/07/17 09:50; Admin Dose 3 MG; Start 01/26/17 at 13:00 Guaifenesin/ Codeine Phosphate (Robitussin Ac Liquid Cup) 10 ml Q4H PRN PO COUGH Last administered on 02/07/17 09:56; Admin Dose 10 ML; Start 01/28/17 at 16:30 Furosemide (Lasix) 40 mg DAILY PO Last administered on 02/07/17 08:11; Admin Dose 40 MG; Start 01/31/17 at 10:00 Pantoprazole (Protonix Tab) 40 mg DAILY@06 PO Last administered on 02/07/17 05: 56; Admin Dose 40 MG; Start 02/01/17 at 06:00 Spironolactone (Aldactone) 50 mg DAILY PO Last administered on 02/07/17 08:11; Admin Dose 50 MG; Start 02/01/17 at 10:00 Phenol (Cepastat Lozenge) 1 lozenge Q1H PRN [place] Sore Throat Last administered on 02/07/17 06:02; Admin Dose 1 LOZENGE; Start 02/06/17 at 22:00 BRENNON RASMUSSEN NP Feb 07, 2017 10:58
[2017-02-07 11:21] LABS: LYMPHOCYTES # 0.5 10^3/ul (0.8-2.9); NEUTROPHIL # 45.4 10^3/ul (1.6-7.5); POLYCHROMASIA 1+
[2017-02-07 11:22] LABS: TARGET CELLS OCCASIONAL
--- NOTE | 2017-02-07 12:10 | PDOCDIS ---
Discharge Instructions DIAGNOSIS Discharge Diagnosis Alcoholic hepatitis. CONDITION Patient Condition: Stable HOME CARE INSTRUCTIONS: Special Diet: regular FOLLOW UP/APPOINTMENTS Follow-up Plan Elder Fairbanks MD Specialty: Internal Medicine Office Address: [address] [place] [address] [place], [place] [id number] Office OTHER ORDERS: Other Orders: 1. Take medications as per prescription. Take tapering dose of steroids. Do not stop steroids at once. 2. Take a regular, preferably low-cholesterol diet. 3. Follow-up with your primary care physician 1 week. If you do not have a primary care physician, please call Dr. Elder Fairbanks's office. 4. Please call 911 over to the nearest emergency room if he has significant abdominal pain, persistent nausea/vomiting, worsening of jaundice or any other unusual signs/symptoms. 5. Resume activities as tolerated. 6. Avoid EtOH. BRENNON RASMUSSEN NP Feb 07, 2017 12:10
[2017-02-07] MEDS ORDERED: METH32TA2 PO (12:21)
[2017-02-07] MEDS ORDERED: FURO40TA4 PO (12:29)
[2017-02-07] MEDS ORDERED: SPIR50TA PO (12:29)
[2017-02-07] MEDS ORDERED: TRAM-40 PO (12:30)
--- NOTE | 2017-02-07 17:12 | DS ---
Date/Time of Note Date/Time of Note DATE: 02/07/17 TIME: 17:12 Discharge Summary Admission/Discharge Info Admit Date/Time Jan 19, 2017 at 06:11 Discharge Date/Time Feb 07, 2017 at 14:49 Discharge Diagnosis 1. Alcoholic hepatitis. 2. Macrocytic anemia. 3. Persistent leukocytosis. 4. Ascites. 5. Scrotal edema. 6. Alcohol abuse. 7. Transaminitis with hyperbilirubinemia. 8. Coagulopathy. Patient Condition: Stable Consults 1. Ash Caraballo MD, Infectious Diseases. 2. Mandy Stafford MD, Hematology. 3. Zulema Ospina MD, Gastroenterology. 4. Jerry Cedeno MD, Gastroenterology. Procedures CT Scan of the Abdomen and Pelvis IMPRESSION: No evidence of urolithiasis, obstructive uropathy, diverticulitis or appendicitis. Hepatosplenomegaly.. Visible but nonpathologically enlarged mesenteric nodes. Small to moderate ascites. Ill-defined consolidation anterior segment right upper lobe only partially included on the study. Testicular Ultrasound IMPRESSION: No evidence of testicular torsion. Abdominal Ultrasound IMPRESSION: Enlarged echogenic liver suggestive of hepatic steatosis. Normal gallbladder without gallstones. Splenomegaly. CXR IMPRESSION: Low lung volumes with minimal mild basilar atelectatic changes. Hx of Present Illness This is a 31-year-old male with a past medical history of alcohol abuse with resultant alcoholic liver disease, alcohol related pancreatitis, liver cirrhosis , and chronic leukocytosis who was actually discharged home from [facility] on 01/18/2017 following his admission for chronic pancreatitis and abdominal pain. The patient verbalized that he was not taking any medications at home. The patient was scheduled to be on high dose steroids as per the recommendations of gastroenterology for a long time because of acute alcoholic hepatitis. Nevertheless, the patient was not taking his steroids at home. The patient verbalized a syncopal episode at home when he fell on his bilateral knees. The patient denied any history of head trauma. The patient denied any chest pain. The patient went to [facility] where he was evaluated initially. The patient was noticed to have a WBC of 49.7. The patient also had evidence of anion gap acidosis. The patient also had evidence of lactic acidosis and bandemia. The patient was noticed to have significant hyperbilirubinemia. The patient was treated with IV ceftriaxone and IV Flagyl in the emergency room along with analgesics. The patient was transferred to [facility] for further management because of insurance reasons. The patient denied any fevers. The patient was complaining of headache and dizziness. The patient denied any melena. The patient was complaining of some hematochezia and he referred that to his hemorrhoids. The patient denied any diarrhea. He also complained about a few episodes of nonbloody, nonbilious vomiting. Hospital Course The patient was admitted to inpatient telemetry floor. The patient was started on empiric antibiotics. Pancultures were ordered. The patient's CT scan of the abdomen and pelvis showed small to moderate ascites with ill-defined consolidation in the anterior right upper lobe that was only partially included in the study. The patient has been treated for any underlying healthcare associated pneumonia. Patient continued to have abdominal pain. The patient's abdominal pain was concluded to be secondary to underlying alcoholic hepatitis. Patient continued to have transaminitis with hyperbilirubinemia. The patient' s hepatitis serology from his previous admission in March 2016 was negative. Hence this was not repeated. The patient was maintained on high-dose steroids as per gastroenterology recommendations. Hepatotoxic drugs were avoided. The patient had evidence of alcoholic hepatitis. The patient had underlying coagulopathy secondary to alcoholic liver disease. The patient did not require any blood transfusion during this hospitalization. The patient continued to have persistent leukocytosis despite antibiotic therapy. In fact, the patient's leukocytosis was severe enough that the WBC count was around 50,000. Therefore, other processes were suspected and a hematology consult was obtained. Hematology reviewed the peripheral smear and there was no evidence of acute leukemia or other obvious myeloproliferative disorder. Flow cytometry did not reveal any evidence of hematologic malignancy. Flow cytometry did reveal a left shifted myeloid maturation and no abnormal B-cell population. JAK2 and BCR ABL were both negative. Hence hematology concluded that the patient's leukocytosis was caused by a dysfunction of the bone marrow from alcoholic hepatitis. The patient's macrocytic anemia was also caused by the same. Patient continued to have abdominal pain with abdominal distention. This was concluded to be secondary to alcoholic hepatitis and underlying cirrhosis. The patient was started on loop diuretics and aldosterone antagonists with improvement of the patient's symptoms. The patient also had testicular edema. The patient was treated by elevating the scrotum while at rest. The patient underwent a testicular ultrasound that was negative for any testicular torsion. The patient had a prolonged hospital course because of the complexity of the patient's clinical presentation, the need for multiple consultants to be involved and collaboration of care with multiple consultants. Patient continues to have a leukocytosis. However, the patient has no evidence of any underlying infection or any underlying myeloproliferative disorder. The patient was cleared by consultants to be discharged home on tapering dose of steroids [long-term taper]. Discharge Instructions 1. Take medications as per prescription. Take tapering dose of steroids. Do not stop steroids at once. 2. Take a regular, preferably low-cholesterol diet. 3. Follow-up with your primary care physician 1 week. If you do not have a primary care physician, please call Dr. Elder Fairbanks's office. 4. Please call 911 over to the nearest emergency room if he has significant abdominal pain, persistent nausea/vomiting, worsening of jaundice or any other unusual signs/symptoms. 5. Resume activities as tolerated. 6. Avoid EtOH. The patient verbalized understanding of discharge instructions. Case discussed with Dr. Jenkins. Home Meds Active Scripts Tramadol Hcl* (Ultram*) 50 Mg Tablet, 50 MG PO Q6H Y for PAIN, #20 TAB Prov:BRENNON RASMUSSEN NP 02/07/17 Furosemide* (Furosemide*) 40 Mg Tablet, 40 MG PO DAILY for 30 Days, TAB Prov:BRENNON RASMUSSEN NP 02/07/17 Spironolactone* (Aldactone*) 50 Mg Tablet, 50 MG PO DAILY for 30 Days, TAB Prov:BRENNON RASMUSSEN NP 02/07/17 Methylprednisolone* (Methylprednisolone*) 32 Mg Tablet, 24 MG PO DAILY for 7 Days, TAB Methylprednisolone 24 mg p.o. daily 1 week, then Methylprednisolone 20 mg p.o. daily 1 week, then Methylprednisolone 16 mg p.o. daily 1 week, then Methylprednisolone 12 mg p.o. daily 1 week, then Methylprednisolone 8 mg p.o. daily 1 week, then Methylprednisolone 4 mg p.o. daily 1 week. Prov:BRENNON RASMUSSEN NP 02/07/17 Folic Acid* (Folic Acid*) 1 Mg Tablet, 2 MG PO DAILY for 30 Days, #30 TAB 2 Refills Prov:HERBERT ESPARZA MD 01/18/17 Hydrocortisone* Rectal (Anucort-HC* Supp) 25 Mg Supp, 25 MG VT TID Y for HEMORROID PAIN/ITCHING for 10 Days, #10 SUPP 2 Refills Prov:HERBERT ESPARZA MD 01/18/17 Polyethylene Glycol* (Miralax*) 17 Gm Powd.pack, 17 GM PO BID for 10 Days, #20 3 Refills Prov:HERBERT ESPARZA MD 01/18/17 Sennosides/Docusate Sodium (Senna Plus Tablet) 1 Each Tablet, 2 TAB PO HS for 10 Days, #20 TAB 3 Refills Prov:HERBERT ESPARZA MD 01/18/17 [Thiamine] 100 MG TAB No Conflict Check, 100 MG PO DAILY for 30 Days, #30 5 Refills Prov:HERBERT ESPARZA MD 01/15/17 Propranolol Hcl* (Propranolol Hcl*) 10 Mg Tablet, 10 MG PO TID for 10 Days, #30 TAB 2 Refills Prov:HERBERT ESPARZA MD 01/15/17 Pantoprazole* (Pantoprazole*) 40 Mg Tablet.dr, 40 MG PO DAILY@06 for 7 Days, #7 Prov:HERBERT ESPARZA MD 01/15/17 Discontinued Scripts Ergocalciferol (Vitamin D2) (VITAMIN D2) 50,000 Unit Capsule, 53015 UNIT PO DAILY, #10 CAP 4 Refills Only take once a week; not daily. Prov:HERBERT ESPARZA MD 01/15/17 Follow-up Plan The patient to follow-up with his primary care physician in 7 days. If he does not have a primary care physician, he will contact Dr. Elder Fairbanks's office. Primary Care Provider [facility] Time spent on discharge: > 30 minutes Pending Labs Laboratory Tests Test 02/07/17 05:40 White Blood Count 50.410^3/ul (4.8-10.8) Red Blood Count 2.4310^6/ul (4.70-6.10) Hemoglobin 8.4g/dl (14.0-18.0) Hematocrit 24.9% (42.0-52.0) Mean Corpuscular Volume 102.5fl (82.0-101.0) Mean Corpuscular Hemoglobin 34.6pg (29.0-33.0) Mean Corpuscular Hemoglobin Concent 33.7g/dl (32.0-37.0) Red Cell Distribution Width 18.6% (11.5-14.5) Platelet Count 68239^3/UL (140-415) Mean Platelet Volume 11.5fl (7.4-10.4) Neutrophils % 90.0% (39.0-77.0) Band Neutrophils % 5.0% (0.0-5.0) Lymphocytes % 1.0% (15.0-51.0) Monocytes % 2.0% (0.0-11.0) Eosinophils % 2.0% (0.0-7.0) Basophils % % (0.0-2.0) Neutrophils # 45.410^3/ul (1.6-7.5) Lymphocytes # 0.510^3/ul (0.8-2.9) Monocytes # 1.010^3/ul (0.3-0.9) Eosinophils # 1.010^3/ul (0.0-0.5) Basophils # 10^3/ul (0.0-0.1) Polychromasia 1+ Macrocytosis 1+ Target Cells OCCASIONAL Total Bilirubin 10.2mg/dl (0.2-1.3) Direct Bilirubin 7.80mg/dl (0.00-0.20) Indirect Bilirubin 2.4mg/dl (0-1.1) Aspartate Amino Transf (AST/SGOT) 36IU/L (15-46) Alanine Aminotransferase (ALT/SGPT) 36IU/L (13-69) Alkaline Phosphatase 298IU/L (42-121) Total Protein 5.5g/dl (6.1-8.1) Albumin 2.9g/dl (3.3-4.9) BRENNON RASMUSSEN NP Feb 07, 2017 17:12
--- NOTE | 2017-02-07 18:14 | CONS ---
Date/Time of Note Date/Time of Note DATE: 02/07/17 TIME: 18:13 Assessment/Plan Assessment/Plan Chief Complaint/Hosp Course Assessment 1. Acute alcoholic hepatitis, high discriminant function which denotes high mortality and benefit for steroid treatment Marked leukocytosis. Fairly common finding in patients with alcoholic hepatitis especially in treatment with steroids Chronic alcoholism Polysubstance abuse/poor compliance Edema bilateral acute kidney injury 2. Abdominal pain. Etiology could be from underlying alcoholic hepatitis. CT scan of the abdomen and pelvis showed hepatosplenomegaly and small to moderate ascites with ill-defined consolidation in the anterior segment of the right upper lobe. 3. Transaminitis with hyperbilirubinemia. Most probably secondary to underlying alcoholic liver disease. Hepatotoxic drugs will be avoided on this patient. 4. Alcohol abuse. 5. Coagulopathy. Most probably secondary to underlying acute alcoholic liver disease. The patient will be monitored closely for any bleeding. 6. Persistent leukocytosis. Status post evaluation by hematology. No evidence of malignancy. Leukocytosis secondary to underlying inflammation. Plan: -Trend liver enzymes/white blood cell count - Abstinence critical to his recovery and lifespan is discussed and re-enforced. - taper steroid by 5 mg per wk until off - ok from GI perspective to dc patient if ok with primary and other consultants Problems: Consultation Date/Type/Reason Admit Date/Time Jan 19, 2017 at 06:11 Initial Consult Date 01/25/17 Type of Consultation: GI Referring Provider: BRENNON RASMUSSEN NP 24 HR Interval Summary Free Text/Dictation no n/v, improved abdominal pain Constitutional: improved Exam/Review of Systems Vital Signs Vitals Vital Signs Date Time Temp Pulse Resp B/P Pulse Ox O2 Delivery O2 Flow Rate FiO2 02/07/17 08:00 98.8 76 20 112/59 96 Intake and Output 02/06/17 02/06/17 02/07/17 15:00 23:00 07:00 Intake Total 930 ml 980 ml Output Total 1925 ml 700 ml Balance -995 ml 280 ml Exam Constitutional: alert, oriented, well developed Psych: nl mood/affect, no complaints Head: atraumatic, normocephalic Eyes: EOMI, icteric, nl lids ENMT: mucosa pink and moist, nl external ears & nose, nl lips & teeth, nl nasal mucosa & septum Neck: non-tender, supple Respiratory: clear to auscultation, normal air movement Cardiovascular: nl pulses, regular rate and rhythm Gastrointestinal: bowel sounds, non-tender, soft Results Result Diagram: 02/07/17 0540 02/06/17 0545 Results 24 hrs Laboratory Tests Test 02/07/17 05:40 White Blood Count 50.4 #H Red Blood Count 2.43 L Hemoglobin 8.4 L Hematocrit 24.9 L Mean Corpuscular Volume 102.5 H Mean Corpuscular Hemoglobin 34.6 H Mean Corpuscular Hemoglobin Concent 33.7 Red Cell Distribution Width 18.6 H Platelet Count 193 Mean Platelet Volume 11.5 H Neutrophils % 90.0 H Band Neutrophils % 5.0 Lymphocytes % 1.0 L Monocytes % 2.0 Eosinophils % 2.0 Basophils % Neutrophils # 45.4 H Lymphocytes # 0.5 L Monocytes # 1.0 H Eosinophils # 1.0 H Basophils # Polychromasia 1+ Macrocytosis 1+ Target Cells OCCASIONAL Total Bilirubin 10.2 H Direct Bilirubin 7.80 #H Indirect Bilirubin 2.4 H Aspartate Amino Transf (AST/SGOT) 36 Alanine Aminotransferase (ALT/SGPT) 36 Alkaline Phosphatase 298 H Total Protein 5.5 #L Albumin 2.9 L FRANDY HODGES MD Feb 07, 2017 18:14
== END 2017-02-07 14:49 | disposition home or self-care (01) | DRG 432 ==
LOC: MS4 06:11 → PP2 01-22 22:21
PROVIDERS: ADMIT Internal Medicine; ATTEND Internal Medicine
DX: K70.31 Alcoholic cirrhosis of liver with ascites (principal); J69.0 Pneumonitis due to inhalation of food and vomit; K70.11 Alcoholic hepatitis with ascites; N17.9 Acute kidney failure, unspecified; D68.4 Acquired coagulation factor deficiency; K86.0 Alcohol-induced chronic pancreatitis; E87.1 Hypo-osmolality and hyponatremia; R16.1 Splenomegaly, not elsewhere classified; F10.239 Alcohol dependence with withdrawal, unspecified; L03.314 Cellulitis of groin; D72.823 Leukemoid reaction; F10.10 Alcohol abuse, uncomplicated; D53.9 Nutritional anemia, unspecified; N50.89 Other specified disorders of the male genital organs; E80.6 Other disorders of bilirubin metabolism; K76.0 Fatty (change of) liver, not elsewhere classified; D72.829 Elevated white blood cell count, unspecified; Z72.0 Tobacco use; Z79.52 Long term (current) use of systemic steroids
CPT/HCPCS: 71010; 74176; 76700; 76870; 80048; 80053; 80076; 80307; 81001; 82140; 82150; 82247; 82248; 82668; 82728; 83540; 83605; 83615; 83690; 83735; 84075; 84100; 84450; 84460; 85025; 85610; 85730; 86021; 86038; 86255; 86592; 86703; 87040; 87086; 87591; J1940; C9113; J1170; J1956; J2270; J2405; J2543; J3420; J7030; J7509; P9047

== ENCOUNTER 2017-06-17 19:25 | Inpatient (IN) | payer OTHER ==
[~2017-06-17] VITALS: Ht 172.7 cm; Wt 81.7 kg
[~2017-06-17 19:25] MED LIST changes: -ANUHCSUP PR; -ERGO500037 PO; +FURO40TA4 PO; +HYDR25SU37 PR; +METH32TA2 PO; +SPIR50TA PO; +TRAM-40 PO
[2017-06-17] MEDS ORDERED: morphine 4 MG/ML VIAL IV STA (20:23)
[2017-06-17] MEDS ORDERED: ONDANSETRON 4 MG INJ IV STA (20:23)
[2017-06-17 20:48] LABS: ABNORMAL IP MESSAGE 1; HEMATOCRIT 30.5 % (42.0-52.0); HEMOGLOBIN 10.7 g/dl (14.0-18.0); MEAN CORPUSCULAR HEMOGLOBIN 30.7 pg (29.0-33.0); MEAN CORPUSCULAR HGB CONC 35.1 g/dl (32.0-37.0); MEAN CORPUSCULAR VOLUME 87.4 fl (82.0-101.0); MEAN PLATELET VOLUME 11.2 fl (7.4-10.4); NUCLEATED RED BLOOD CELLS% 0.1 /100WBC (0.0-0.0); PLATELET COUNT 308 10^3/UL (140-415); POSITIVE DIFF @See below; RED BLOOD COUNT 3.49 10^6/ul (4.70-6.10); RED CELL DISTRIBUTION WIDTH 22.8 % (11.5-14.5); WHITE BLOOD COUNT 51.4 10^3/ul (4.8-10.8)
[2017-06-17 20:55] LABS: ADD UMIC YES; UR ASCORBIC ACID 20 mg/dL (NEGATIVE); UR BACTERIA FEW /HPF (NONE SEEN); UR BILIRUBIN (Dip) 2+ mg/dL (NEGATIVE); UR BLOOD (Dip) NEGATIVE (NEGATIVE); UR CLARITY CLEAR (CLEAR); UR COLOR AMBER (YELLOW); UR GLUCOSE (Dip) NEGATIVE (NEGATIVE); UR KETONES (Dip) NEGATIVE (NEGATIVE); UR LEUKOCYTE ESTERASE (Dip) NEGATIVE Leu/ul (NEGATIVE); UR MUCUS FEW /HPF (NONE SEEN); UR NITRITE (Dip) NEGATIVE (NEGATIVE); UR RBC 1 /HPF (0-5); UR SPECIFIC GRAVITY (Dip) 1.014 (1.003-1.030); UR SQUAMOUS EPITHELIAL CELL FEW /HPF (FEW); UR TOTAL PROTEIN (Dip) 1+ mg/dl (NEGATIVE); UR UROBILINOGEN (Dip) 2+ mg/dL (NEGATIVE)
[2017-06-17 21:06] LABS: INR 2.25; PROTIME 25.1 Sec (12.2-14.2)
[2017-06-17 21:07] LABS: PARTIAL THROMBOPLASTIN TIME 61.5 Sec (25.0-35.0)
[2017-06-17 21:08] LABS: ALBUMIN 3.1 g/dl (3.3-4.9); ALBUMIN/GLOBULIN RATIO 0.63; BILIRUBIN,DIRECT 13.5 mg/dl (0.00-0.20); BILIRUBIN,INDIRECT 2.4 mg/dl (0-1.1); BILIRUBIN,TOTAL 15.9 mg/dl (0.2-1.3); CALCIUM 8.4 mg/dl (8.4-10.2); CREATININE 0.59 mg/dl (0.61-1.24); POTASSIUM 3.1 mmol/L (3.5-5.1)
--- NOTE | 2017-06-17 21:20 | RADRPT ---
PROCEDURE: US Abdomen. CLINICAL INDICATION: abdominal pain TECHNIQUE: Multiple real-time images were acquired of the patient's right upper quadrant abdomen a nd retroperitoneum utilizing a high resolution transducer. COMPARISON: 01/18/17 , 01/31/17 FINDINGS: The liver demonstrates increased echogenicity. The liver is normal in size and no focal solid lesio ns are seen. The liver measures 22.1 cm in length. The portal vein is patent with normal direction o f flow. No intrahepatic biliary dilatation is seen. The gallbladder is contracted and not well seen. The gallbladder wall is thickened measuring 6 mm. T he common bile duct measures 3 mm in maximal dimension. The pancreas is not seen due to overlying bowel gas. There is a mild to moderate amount of ascites. The right kidney is normal in size, and demonstrate normal echogenicity and cortical thickness. The right kidney measures 12.5 cm in long dimension. There is no evidence of hydronephrosis. There are no kidney stones. RPTAT: AA IMPRESSION: Gallbladder is contracted and not well seen. Thickening of the gallbladder wall may be secondary to contraction and ascites. No gross evidence of gallstones noted. Mild to moderate amount of ascites. .Sushant Falcon MD, MD Date Time Electronically viewed and signed by .Sushant Falcon MD, on 06/17/2017 21:19 .S/
[2017-06-17] MEDS ORDERED: ONDANSETRON 4 MG INJ IV PRN (22:00)
[2017-06-17] MEDS ORDERED: ACETAMINOPHEN 325 MG TAB PO PRN (22:00)
[2017-06-17 22:28] LABS: BASOPHIL # 0.5 10^3/ul (0.0-0.1); EOSINOPHILS % (M) 2 % (0.0-7.0); LYMPHOCYTES # 5.1 10^3/ul (0.8-2.9); METAMYELOCYTES %M 1 % (0-0); MONOCYTES % (M) 2 % (0-11); MYELOCYTES % (M) 1 % (0-0)
[2017-06-17 22:30] LABS: ANISOCYTOSIS 1+ (0-0); HYPOCHROMASIA 1+ (0-0)
[2017-06-17 22:31] LABS: TOXIC GRANULATION FEW (0-0)
[2017-06-17 22:32] LABS: PATH REVIEW? YES-PATH TO CONFIRM
[2017-06-17] MEDS ORDERED: ACET1TAB40 PO (22:41)
[2017-06-17] MEDS ORDERED: MULTI PO (22:41)
[2017-06-17] MEDS ORDERED: IBUP800T25 PO (22:41)
--- NOTE | 2017-06-17 22:44 | ERD ---
ER Documentation Chief Complaint Chief Complaint abd pain x 1 mos,yellow skin/eyes; has not seen md yet;last drink 2 wks ago HPI Patient is a 31-year-old male with liver failure and previous pancreatitis who presents saying "I am turning yellow". He has right upper quadrant pain and epigastric pain. It is been there for the past 1 week. His family was concerned which is why he came to the emergency department. He tried ibuprofen. He denies fevers. He does say that he has been drinking alcohol over the past 2 days. He does not know the name of his primary doctor and he does not have a GI specialist. Upon review of old medical records the patient has multiple visits to the ER with admissions. ROS All systems reviewed and are negative except as per history of present illness. Medications Home Meds Reported Medications Ibuprofen* (Ibuprofen*) 800 Mg Tab, 800 MG PO TID for PAIN LEVEL 4-7, TAB 06/17/17 Acetaminophen with Codeine (Acetaminophen-Cod #3 Tablet) 1 Each Tablet, 1 TAB PO Q4H WHILE AWAKE Y for PAIN LEVEL 1-5, #7 TAB 06/17/17 Multivitamins* (Theragran*) 1 Tab Tab, 1 TAB PO DAILY, TAB 06/17/17 Discontinued Scripts Tramadol Hcl* (Ultram*) 50 Mg Tablet, 50 MG PO Q6H Y for PAIN, #20 TAB Prov:BRENNON RASMUSSEN NP 02/07/17 Furosemide* (Furosemide*) 40 Mg Tablet, 40 MG PO DAILY for 30 Days, TAB Prov:BRENNON RASMUSSEN NP 02/07/17 Spironolactone* (Aldactone*) 50 Mg Tablet, 50 MG PO DAILY for 30 Days, TAB Prov:BRENNON RASMUSSEN NP 02/07/17 Methylprednisolone* (Methylprednisolone*) 32 Mg Tablet, 24 MG PO DAILY for 7 Days, TAB Methylprednisolone 24 mg p.o. daily 1 week, then Methylprednisolone 20 mg p.o. daily 1 week, then Methylprednisolone 16 mg p.o. daily 1 week, then Methylprednisolone 12 mg p.o. daily 1 week, then Methylprednisolone 8 mg p.o. daily 1 week, then Methylprednisolone 4 mg p.o. daily 1 week. Prov:BRENNON RASMUSSEN NP 02/07/17 Folic Acid* (Folic Acid*) 1 Mg Tablet, 2 MG PO DAILY for 30 Days, #30 TAB 2 Refills Prov:HERBERT ESPARZA MD 01/18/17 Hydrocortisone* Rectal (Anucort-HC* Supp) 25 Mg Supp, 25 MG LA TID Y for HEMORROID PAIN/ITCHING for 10 Days, #10 SUPP 2 Refills Prov:HERBERT ESPARZA MD 01/18/17 Polyethylene Glycol* (Miralax*) 17 Gm Powd.pack, 17 GM PO BID for 10 Days, #20 3 Refills Prov:HERBERT ESPARZA MD 01/18/17 Sennosides/Docusate Sodium (Senna Plus Tablet) 1 Each Tablet, 2 TAB PO HS for 10 Days, #20 TAB 3 Refills Prov:HERBERT ESPARZA MD 01/18/17 [Thiamine] 100 MG TAB No Conflict Check, 100 MG PO DAILY for 30 Days, #30 5 Refills Prov:HERBERT ESPARZA MD 01/15/17 Propranolol Hcl* (Propranolol Hcl*) 10 Mg Tablet, 10 MG PO TID for 10 Days, #30 TAB 2 Refills Prov:HERBERT ESPARZA MD 01/15/17 Pantoprazole* (Pantoprazole*) 40 Mg Tablet.dr, 40 MG PO DAILY@06 for 7 Days, #7 Prov:HERBERT ESPARZA MD 01/15/17 Allergies Allergies: Coded Allergies: shellfish derived (Unverified Allergy, Unknown, RASH, ITCHINESS, 06/17/17) PMhx/Soc History of Surgery: No Anesthesia Reaction: No Hx 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 Disorder: No Hx Respiratory Disorders: No Hx Cardiac Disorders: No Hx Psychiatric Problems: No Hx Miscellaneous Medical Probl: Yes (Liver issues) Hx Alcohol Use: Yes Hx Substance Use: Yes Hx Tobacco Use: Yes Smoking Status: Current every day smoker FmHx Family History: No diabetes Physical Exam Vitals Vital Signs Date Time Temp Pulse Resp B/P Pulse Ox O2 Delivery O2 Flow Rate FiO2 06/17/17 19:47 99.2 110 24 117/66 99 Physical Exam Const: Jaundice Head: Atraumatic Eyes: Scleral icterus ENT: Normal External Ears, Nose and Mouth. Neck: Full range of motion..~ No meningismus. Resp: Clear to auscultation bilaterally Cardio: Regular rate and rhythm, no murmurs Abd: Soft, right upper quadrant tenderness to palpation without rebound or guarding Skin: Jaundice Back: No midline or flank tenderness Ext: No cyanosis, or edema Neur: Awake and alert Psych: Normal Mood and Affect Result Diagram: 06/17/17202906/17/172029 Results 24 hrs Laboratory Tests Test 06/17/17 20:30 White Blood Count 51.410^3/ul Red Blood Count 3.4910^6/ul Hemoglobin 10.7g/dl Hematocrit 30.5% Mean Corpuscular Volume 87.4fl Mean Corpuscular Hemoglobin 30.7pg Mean Corpuscular Hemoglobin Concent 35.1g/dl Red Cell Distribution Width 22.8% Platelet Count 65370^3/UL Mean Platelet Volume 11.2fl Neutrophils % % Segmented Neutrophils % (Manual) 71% Band Neutrophils % (Manual) 12% Lymphocytes % (Manual) 10% Monocytes % (Manual) 2% Eosinophils % % Eosinophils % (Manual) 2% Basophils % % Metamyelocytes % (manual) 1% Myelocytes % (Manual) 1% Nucleated Red Blood Cells % 0.1/100WBC Neutrophils # 10^3/ul Neutrophils # (Manual) 39.610^3/ul Band Neutrophils # 6.110^3/ul Absolute Lymphocytes (Manual) 5.110^3/ul Lymphocytes # 5.110^3/ul Monocytes # 1.010^3/ul Absolute Monocytes (Manual) 1.010^3/ul Eosinophils # 1.010^3/ul Basophils # 0.510^3/ul Metamyelocytes # 0.510^3/ul Myelocytes # 0.510^3/ul Pathologist Review (Hematology) YES-PATH TO CONFIRM Toxic Granulation FEW Platelet Estimate Hypochromasia 1+ Anisocytosis 1+ Macrocytosis 1+ Prothrombin Time Pending Prothrombin Time Ratio 2.0 INR International Normalized Ratio 2.25 Activated Partial Thromboplast Time 61.5Sec Urine Color [place] Urine Clarity CLEAR Urine pH 6.0 Urine Specific [place] 1.014 Urine Ketones NEGATIVEmg/dL Urine Nitrite NEGATIVEmg/dL Urine Bilirubin 2+mg/dL Urine Urobilinogen 2+mg/dL Urine Leukocyte Esterase NEGATIVELeu/ul Urine Microscopic RBC 1/HPF Urine Microscopic WBC 2/HPF Urine Squamous Epithelial Cells FEW/HPF Urine Bacteria FEW/HPF Urine Mucus FEW/HPF Urine Hemoglobin NEGATIVEmg/dL Urine Glucose NEGATIVEmg/dL Urine Total Protein 1+mg/dl Sodium Level 132mmol/L Potassium Level 3.1mmol/L Chloride Level 100mmol/L Carbon Dioxide Level 16mmol/L Anion Gap 19 Blood Urea Nitrogen 5mg/dl Creatinine 0.59mg/dl Glucose Level 96mg/dl Calcium Level 8.4mg/dl Total Bilirubin 15.9mg/dl Direct Bilirubin 13.50mg/dl Indirect Bilirubin 2.4mg/dl Aspartate Amino Transf (AST/SGOT) 80IU/L Alanine Aminotransferase (ALT/SGPT) 26IU/L Alkaline Phosphatase 362IU/L Total Protein 8.0g/dl Albumin 3.1g/dl Globulin 4.90g/dl Albumin/Globulin Ratio 0.63 Lipase 34U/L Current Medications Medications (Trade) Dose Ordered Sig/Meka Route PRN Reason Start Time Stop Time Status Last Admin Dose Admin Morphine Sulfate (morphine) 4 mg ONCE STAT IV 06/17/17 20:23 06/17/17 20:24 DC 06/17/17 20:55 Ondansetron HCl (Zofran Inj) 4 mg ONCE STAT IV 06/17/17 20:23 06/17/17 20:24 DC 06/17/17 20:55 Ondansetron HCl (Zofran Inj) 4 mg BRIDGE ORDER PRN IV NAUSEA AND/OR VOMITING 06/17/17 22:00 06/18/17 21:59 Acetaminophen (Tylenol Tab) 650 mg ER BRIDGE PRN PO MILD PAIN/FEVER 06/17/17 22:00 06/18/17 21:59 Procedures/MDM PROCEDURE: US Abdomen. CLINICAL INDICATION: abdominal pain TECHNIQUE: Multiple real-time images were acquired of the patient's right upper quadrant abdomen and retroperitoneum utilizing a high resolution transducer. COMPARISON: 01/18/17 , 01/31/17 FINDINGS: The liver demonstrates increased echogenicity. The liver is normal in size and no focal solid lesions are seen. The liver measures 22.1 cm in length. The portal vein is patent with normal direction of flow. No intrahepatic biliary dilatation is seen. The gallbladder is contracted and not well seen. The gallbladder wall is thickened measuring 6 mm. The common bile duct measures 3 mm in maximal dimension. The pancreas is not seen due to overlying bowel gas. There is a mild to moderate amount of ascites. The right kidney is normal in size, and demonstrate normal echogenicity and cortical thickness. The right kidney measures 12.5 cm in long dimension. There is no evidence of hydronephrosis. There are no kidney stones. RPTAT: AA IMPRESSION: Gallbladder is contracted and not well seen. Thickening of the gallbladder wall may be secondary to contraction and ascites. No gross evidence of gallstones noted. Mild to moderate amount of ascites. .Sushant Falcon MD, MD Date Time Electronically viewed and signed by .Sushant Falcon MD, on 06/17/2017 21: 19 Smoking Cessation Therapy: Pt. was lectured for greater than 3 minutes on the health risks of continued smoking and the benefits of cessation. Patient is a 31-year-old male with a history of liver failure who presents with jaundice. His bilirubin was 15.9 showing severe hyperbilirubinemia and likely the cause of his scleral icterus and jaundice. He has an elevated white blood cell count of 51 which is severely elevated and I do not think is related to infectious causes or sepsis. He may need underlying workup for malignancy. The patient will be admitted to the care of Dr. Mohan from the panel team for further treatment. He was given pain and nausea medicines. I held off on antibiotics at this time as I do not see any source of infection. The patient would likely benefit from GI consultation. We have discussed potential liver transplant but the patient has been drinking over the past 2 days. Critical Care: Time: 35 minutes excluding all billable procedures. Treatments/Evaluations: Close monitoring and treatment of unstable vital signs, cardiorespiratory, and neurologic status, while maintaining tight balance of fluid, respiratory, and cardiac interventions. Departure Diagnosis: Primary Impression: Abdominal pain Abdominal location: generalized Qualified Code: R10.84 - Generalized abdominal pain Additional Impressions: Jaundice Liver failure Liver failure chronicity: acute Hepatic coma status: with hepatic coma Qualified Code: K72.01 - Acute liver failure with hepatic coma Condition: Serious HERNESTO BRICEÑO MD Jun 17, 2017 22:44
[2017-06-17 22:48] VITALS: TEMP 99.2
[2017-06-17] MEDS ORDERED: VANCOMYCIN IV PER PHARMACY XX SCH (23:30)
[2017-06-17 23:41] VITALS: Ht 172.7 cm; Wt 81.7 kg
[2017-06-17] MEDS: morphine 2 MG INJ IV PRN (23:55)
[2017-06-18] MEDS: PIPER-TAZO 3.375 GM IV (PMX) 50 ML IVPB SCH ×5 (00:43→23:33)
[2017-06-18] MEDS ORDERED: VANCOMYCIN 1.5 GM in SOD CHLORIDE 0.9% 250 ML IVPB ONE (01:00)
[2017-06-18 03:26] VITALS: BP 115/69; RESP 21
[2017-06-18] MEDS: morphine 2 MG INJ IV PRN ×3 (04:20→13:58)
--- NOTE | 2017-06-18 05:30 | HP ---
Date/Time of Note Date/Time of Note DATE: 06/18/17 TIME: 05:18 Assessment/Plan VTE Prophylaxis VTE Prophylaxis Intervention: SCD's Lines/Catheters IV Catheter Type (from [facility]): Saline Lock Assessment/Plan Assessment/Plan ASSESSMENT 31-year-old male with a history of decompensated alcoholic liver disease/ hepatitis, hyperbilirubinemia and persistent leukocytosis presents with jaundice and abdominal pain, secondary to worsening liver disease PLAN -Patient with worsening liver disease with worsening coagulopathy, hyperbilirubinemia as well as ascites. Patient's mortality rate is high was elevated discriminant function score. He will be placed on a steroid. Unlikely addition of pentoxifylline would be of any benefit. Will place a GI consult -Patient was persistent leukocytosis, 51,000 now, which is almost same as what it was 3 months ago. He was seen by hematology and has had a biopsy which was negative for malignancy. This is most likely from alcoholic hepatitis. Will monitor closely with the expectation that he might worsen with the use of steroid HPI/ROS Admit Date/Time Admit Date/Time Jun 17, 2017 at 22:00 Hx of Present Illness This is a 31-year-old male with a history of decompensated alcoholic liver disease/hepatitis, persistent leukocytosis and hyperbilirubinemia who presented to the ER complaining of abdominal pain and yellowing of his eyes and skin. Patient was admitted here a few months ago for alcoholic hepatitis. At that time he had a total bilirubin of 15 and a WBC of 50,000. He continues to drink saying that last drink was 2 weeks ago. When he presented to the ER this time, total bilirubin worsened, now 16 with a DB of 13.5. WBC pretty much unchanged, 51,000. He also presented with worsening coagulopathy. Right upper quadrant ultrasound shows contracted gallbladder and a mild to moderate ascites. PMH/Family/Social Past Surgical History Past Surgical Hx: no surgical history, other Social History Smoking Status: Current every day smoker Exam/Review of Systems Vital Signs Vitals Vital Signs Date Time Temp Pulse Resp B/P Pulse Ox O2 Delivery O2 Flow Rate FiO2 06/18/17 03:26 98.5 110 21 115/69 98 06/17/17 22:48 Room Air Exam Constitutional: other (Appears weak. Jaundiced) Head: atraumatic, normocephalic Eyes: icteric Respiratory: clear to auscultation Cardiovascular: nl pulses, regular rate and rhythm Gastrointestinal: distended Extremities: normal pulses Labs Result Diagram: 06/17/17202906/17/172029 Medications Medications Current Medications Piperacillin Sod/ Tazobactam Sod (Zosyn 3.375gm/ 50 ml (Pmx)) 50 ml @ 100 mls/ hr Q6 IVPB Last administered on 06/18/17 00:43; Admin Dose 100 MLS/HR; Start 06/18/17 at 00:00 Morphine Sulfate 2 mg 2 mg Q4H PRN IV PAIN Last administered on 06/18/17 04:20 ; Admin Dose 2 MG; Start 06/17/17 at 23:30 Vancomycin HCl/ Sodium Chloride (Vancocin/NS) 250 ml @ 83.333 mls/ hr Q8H IVPB ; Start 06/18/17 at 09:00 SHELLY GARCIA MD Jun 18, 2017 05:30
[2017-06-18] MEDS ORDERED: POTASSIUM CHLORIDE (SR) 10 MEQ TAB PO ONE (06:00)
[2017-06-18 06:49] LABS: ABNORMAL IP MESSAGE 1; HEMATOCRIT 28.3 % (42.0-52.0); HEMOGLOBIN 9.5 g/dl (14.0-18.0); MEAN CORPUSCULAR HEMOGLOBIN 29.6 pg (29.0-33.0); MEAN CORPUSCULAR HGB CONC 33.6 g/dl (32.0-37.0); MEAN CORPUSCULAR VOLUME 88.2 fl (82.0-101.0); MEAN PLATELET VOLUME 11.1 fl (7.4-10.4); NUCLEATED RED BLOOD CELLS% 0.1 /100WBC (0.0-0.0); PLATELET COUNT 270 10^3/UL (140-415); POSITIVE DIFF @See below; RED BLOOD COUNT 3.21 10^6/ul (4.70-6.10); RED CELL DISTRIBUTION WIDTH 23.7 % (11.5-14.5); WHITE BLOOD COUNT 47.4 10^3/ul (4.8-10.8)
[2017-06-18 07:20] LABS: ALBUMIN 2.6 g/dl (3.3-4.9); ALBUMIN/GLOBULIN RATIO 0.54; BILIRUBIN,DIRECT 11.5 mg/dl (0.00-0.20); BILIRUBIN,INDIRECT 2.2 mg/dl (0-1.1); BILIRUBIN,TOTAL 13.7 mg/dl (0.2-1.3); CALCIUM 8.3 mg/dl (8.4-10.2); CREATININE 0.54 mg/dl (0.61-1.24); POTASSIUM 3.1 mmol/L (3.5-5.1); TOTAL PROTEIN 7.4 g/dl (6.1-8.1)
[2017-06-18 07:48] VITALS: BP 91/54; RESP 18
[2017-06-18] MEDS ORDERED: VANCOMYCIN 1.25 GM in SOD CHLORIDE 0.9% 250 ML IVPB SCH (09:00)
[2017-06-18] MEDS: METHYLPREDNISOLONE 4 MG TAB PO SCH (09:07)
[2017-06-18 09:09] LABS: ANISOCYTOSIS 2+ (0-0); BURR CELLS 3+ (0-0); EOSINOPHILS % (M) 4 % (0-7); MONOCYTES % (M) 5 % (0-11); PLATELET ESTIMATE NORMAL; POIKILOCYTOSIS 3+ (0-0); POLYCHROMASIA 3+ (0-0); SPHEROCYTES 2+ (0-0)
[2017-06-18 14:13] VITALS: BP 104/56; RESP 16
--- NOTE | 2017-06-18 15:23 | PN ---
Date/Time of Note Date/Time of Note DATE: 06/18/17 TIME: 15:14 Assessment/Plan VTE Prophylaxis VTE Prophylaxis Intervention: other Lines/Catheters IV Catheter Type (from Nrsg): Peripheral IV Assessment/Plan Assessment/Plan 1. Alcoholic liver disease with jaundice, ascites, coagulopathy and hypoalbuminemia, follow up with LFTs 2. Jaundice due to alcoholic liver disease 3. Persistent leukocytosis, unlikely infection, on zosyn and vanco, stop vanco today 4. Alcoholism, thiamine/folic/ativan prn Exam/Review of Systems Vital Signs Vitals Vital Signs Date Time Temp Pulse Resp B/P Pulse Ox O2 Delivery O2 Flow Rate FiO2 06/18/17 14:13 98.0 109 16 104/56 96 06/17/17 22:48 Room Air Intake and Output 06/17/17 06/17/17 06/18/17 15:00 23:00 07:00 Intake Total 640 ml Balance 640 ml Exam Constitutional: alert, oriented, well developed Psych: nl mood/affect, no complaints Head: atraumatic, normocephalic Eyes: EOMI, nl conjunctiva, nl lids ENMT: nl external ears & nose, nl lips & teeth, nl nasal mucosa & septum Neck: non-tender, supple Respiratory: clear to auscultation, normal air movement, No congested cough, No crackles/rales, No diminished breath sounds, No intercostal retraction, No labored breathing, No other, No respirations, No tactile fremitus, No wheezing Cardiovascular: nl pulses, regular rate and rhythm, No S3, No S4, No bruits, No diastolic murmur, No edema, No gallop, No irregular rhythm, No jugular venous distention (JVD), No murmurs/extra sounds, No other, No rub, No systolic murmur Gastrointestinal: distended, soft Musculoskeletal: nl extremities to inspection Extremities: normal pulses, No calf tenderness, No clubbing, No cyanosis, No edema, No other, No palpable cord, No pitting pedal edema, No tenderness 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: CAD DESIGNER II-XII intact, nl mental status, nl speech, nl strength Skin: nl turgor Lymph: nl lymph nodes Results Result Diagram: 06/18/17 0605 06/18/17 0605 Results 24 hrs Laboratory Tests Test 06/17/17 20:30 06/18/17 06:05 White Blood Count 51.4 H 47.4 H Red Blood Count 3.49 #L 3.21 L Hemoglobin 10.7 #L 9.5 L Hematocrit 30.5 #L 28.3 L Mean Corpuscular Volume 87.4 88.2 Mean Corpuscular Hemoglobin 30.7 29.6 Mean Corpuscular Hemoglobin Concent 35.1 33.6 Red Cell Distribution Width 22.8 #H 23.7 H Platelet Count 308 # 270 Mean Platelet Volume 11.2 H 11.1 H Neutrophils % Segmented Neutrophils % (Manual) 71 64 Band Neutrophils % (Manual) 12 H 19 H Lymphocytes % (Manual) 10 L 8 L Monocytes % (Manual) 2 5 Eosinophils % Eosinophils % (Manual) 2 4 Basophils % Metamyelocytes % (manual) 1 H Myelocytes % (Manual) 1 H Nucleated Red Blood Cells % 0.1 H 0.1 H Neutrophils # Neutrophils # (Manual) 39.6 H 34.6 H Band Neutrophils # 6.1 H 9.0 H Absolute Lymphocytes (Manual) 5.1 H 3.7 H Lymphocytes # 5.1 H Monocytes # 1.0 H Absolute Monocytes (Manual) 1.0 H 2.3 H Eosinophils # 1.0 H Basophils # 0.5 H Metamyelocytes # 0.5 H Myelocytes # 0.5 H Pathologist Review (Hematology) YES-PATH TO CONFIRM Toxic Granulation FEW Platelet Estimate NORMAL Hypochromasia 1+ Anisocytosis 1+ 2+ Macrocytosis 1+ 2+ Prothrombin Time 25.1 #H Prothrombin Time Ratio 2.0 INR International Normalized Ratio 2.25 Activated Partial Thromboplast Time 61.5 H Urine Color [place] Urine Clarity CLEAR Urine pH 6.0 Urine Specific [place] 1.014 Urine Ketones NEGATIVE Urine Nitrite NEGATIVE Urine Bilirubin 2+ H Urine Urobilinogen 2+ H Urine Leukocyte Esterase NEGATIVE Urine Microscopic RBC 1 Urine Microscopic WBC 2 Urine Squamous Epithelial Cells FEW Urine Bacteria FEW A Urine Mucus FEW A Urine Hemoglobin NEGATIVE Urine Glucose NEGATIVE Urine Total Protein 1+ H Sodium Level 132 L 132 L Potassium Level 3.1 L 3.1 L Chloride Level 100 102 Carbon Dioxide Level 16 L 19 L Anion Gap 19 H 14 Blood Urea Nitrogen 5 L 4 L Creatinine 0.59 L 0.54 L Glucose Level 96 69 #L Calcium Level 8.4 8.3 L Total Bilirubin 15.9 H 13.7 H Direct Bilirubin 13.50 H 11.50 H Indirect Bilirubin 2.4 H 2.2 H Aspartate Amino Transf (AST/SGOT) 80 H 73 H Alanine Aminotransferase (ALT/SGPT) 26 30 Alkaline Phosphatase 362 H 317 H Total Protein 8.0 7.4 Albumin 3.1 L 2.6 L Globulin 4.90 H 4.80 H Albumin/Globulin Ratio 0.63 0.54 Lipase 34 Lymphocytes % Monocytes % Nucleated Red Blood Cells # Polychromasia 3+ Poikilocytosis 3+ Spherocytes 2+ Medications Medications Current Medications Piperacillin Sod/ Tazobactam Sod (Zosyn 3.375gm/ 50 ml (Pmx)) 50 ml @ 100 mls/ hr Q6 IVPB Last administered on 06/18/17 05:22; Admin Dose 100 MLS/HR; Start 06/18/17 at 00:00 Morphine Sulfate 2 mg 2 mg Q4H PRN IV PAIN Last administered on 06/18/17 13:58 ; Admin Dose 2 MG; Start 06/17/17 at 23:30 Vancomycin HCl/ Sodium Chloride (Vancocin/NS) 250 ml @ 83.333 mls/ hr Q8H IVPB Last administered on 06/18/17 09:08; Admin Dose 83.333 MLS/HR; Start at 09:00 Methylprednisolone (Medrol) 32 mg DAILY PO Last administered on 06/18/17 09:07 ; Admin Dose 32 MG; Start 06/18/17 at 09:00; Stop 06/24/17 at 08:59 Miscellaneous Information (*Rx Drug Level Order Reminder*) 1 ONCE ONCE XX ; Start 06/19/17 at 00:00; Stop 06/19/17 at 00:01 VIRGINIA FRENCH MD Jun 18, 2017 15:23
[2017-06-18] MEDS ORDERED: LORAZEPAM 1 MG TAB PO PRN (15:30)
[2017-06-18] MEDS: THIAMINE 100 MG TAB PO SCH (16:04)
[2017-06-18] MEDS: FOLIC ACID 1 MG TAB PO SCH (16:04)
[2017-06-18] MEDS ORDERED: BARIUM SULF 2% 450 ML BTL (BERRY SMOOTHIE) PO ONE (17:00)
--- NOTE | 2017-06-18 17:00 | CONS ---
Date/Time of Note Date/Time of Note DATE: 06/18/17 TIME: 16:30 Assessment/Plan Assessment/Plan Chief Complaint/Hosp Course Summary Assessment and Plan: Assessment: Alcoholic hepatitis Melena-likely secondary to esophageal varices Leukocytosis related to alcoholic hepatitis versus SBO Anemia- chronic disease versus acute upper GI bleed Plan: Agree with steroids for treatment of alcoholic hepatitis Clear liquids today N.p.o. after midnight Plan for EGD tomorrow Endoscopy - risks/benefits/alternatives/indications of procedure and sedation/ anesthesia discussed with patient who states understading and gives informed consent to proceed. PARQ held and questions were answered. Paracentesis with diagnostic tap Start lactulose Check ammonia CT abdomen pelvis to rule out abscess underlying etiology She is seen in collaboration with Chief Complaint/Reason for Visit: Alcoholic hepatitis Melena History of Present Illness: This is a 31-year-old male with history of decompensating alcoholic hepatitis with ascites, and history of pancreatitis alcohol induced. Presented to the ER for worsening abdominal pain and jaundice. Patient states since last hospitalization has been doing well until he was laid off 4 weeks ago, then went on a drinking binge, when his friend noticed he was looking "yellow", he then stopped drinking for 2 weeks. Symptoms did not improve and patient came in for evaluation. Labs drawn today showed WBC 47.4 hemoglobin 9.5 hematocrit 28.3 PTT 25.1 INR 2.25 AST 73 ALT 30 alkaline phosphorus of 317, all consistent with alcoholic hepatitis discriminant function is 63.8, he has patient been started on steroid therapy to reduce mortality rate. Will order paracentesis with diagnostic tap r/o SBP, CT abdomen and pelvis r/o underlying etiology of leukocytosis. Will check ammonia level and start lactulose plan for EGD tomorrow as patient is having melena rule out upper GI bleed. Past Medical History: Pancreatitis Alcoholic hepatitis hepatitis Allergies: Shellfish Social History: smokes half a pack a day for the past 10 years Denies drug use Heavy drinker 5-6 years although last 2-3 years states only drinks 2 beers a day PHYSICAL EXAMINATION: GENERAL: Jaundice, alert & oriented x 3, in no acute distress SKIN: No lesions, stigmata chronic liver disease, no evidence of bleeding diathesis LYMPHATIC: No palpable lymphadenopathy. HEAD: Normocephalic, atraumatic, no tenderness. EYES: Pupils equal reactive to light and accommodation, full extraocular movements, sclera clear, icteric, no discharge. EARS/NOSE AND THROAT: Ears normal, nose normal, NECK: Supple, no masses, thyroid normal, CHEST: Inspection within normal limits. CARDIOVASCULAR: Heart: Regular rate and rhythm, no murmurs, gallops or rubs. Peripheral pulses present within normal limits, no cyanosis, clubbing or edemas. No pulsatile abdominal mass RESPIRATORY: Lungs clear to auscultation and percussion, no wheezing, no rubs GASTROINTESTINAL AND LIVER: Abdomen: Soft, non tenderness, distended, no hernias , no masses, hepatomegaly, ascites, no guarding, no rebound tenderness, normoactive bowel sounds. Rectal: Deferred. GENITOURINARY: Male genitalia within normal limits. EXTREMITIES: Lateral lower extremity edema. Problems: Consultation Date/Type/Reason Admit Date/Time Jun 17, 2017 at 22:00 Date of Consultation: Jun 18, 2017 Type of Consultation: GI Reason for Consultation Alcohol hepatitis Jaundice Constitutional: no complaints Eyes: other ("Yellowing of the eyes") ENT: no complaints Respiratory: no complaints Cardiovascular: no complaints Gastrointestinal: blood, decreased appetite, nausea, other (Weight loss), pain , No vomiting Musculoskeletal: other (Weakness) Psychological: nl mood/affect, no complaints Past Medical History Medical History: other (Pancreatitis) Past Surgical History Past Surgical Hx: no surgical history, other Social History Smoking Status: Current every day smoker Exam/Review of Systems Vital Signs Vitals Vital Signs Date Time Temp Pulse Resp B/P Pulse Ox O2 Delivery O2 Flow Rate FiO2 06/18/17 14:13 98.0 109 16 104/56 96 06/17/17 22:48 Room Air Intake and Output 06/17/17 06/17/17 06/18/17 15:00 23:00 07:00 Intake Total 640 ml Balance 640 ml Results Result Diagram: 06/18/1760406/18/17604 Results 24 hrs Laboratory Tests Test 06/17/17 20:30 06/18/17 06:05 White Blood Count 51.4 H 47.4 H Red Blood Count 3.49 #L 3.21 L Hemoglobin 10.7 #L 9.5 L Hematocrit 30.5 #L 28.3 L Mean Corpuscular Volume 87.4 88.2 Mean Corpuscular Hemoglobin 30.7 29.6 Mean Corpuscular Hemoglobin Concent 35.1 33.6 Red Cell Distribution Width 22.8 #H 23.7 H Platelet Count 308 # 270 Mean Platelet Volume 11.2 H 11.1 H Neutrophils % Segmented Neutrophils % (Manual) 71 64 Band Neutrophils % (Manual) 12 H 19 H Lymphocytes % (Manual) 10 L 8 L Monocytes % (Manual) 2 5 Eosinophils % Eosinophils % (Manual) 2 4 Basophils % Metamyelocytes % (manual) 1 H Myelocytes % (Manual) 1 H Nucleated Red Blood Cells % 0.1 H 0.1 H Neutrophils # Neutrophils # (Manual) 39.6 H 34.6 H Band Neutrophils # 6.1 H 9.0 H Absolute Lymphocytes (Manual) 5.1 H 3.7 H Lymphocytes # 5.1 H Monocytes # 1.0 H Absolute Monocytes (Manual) 1.0 H 2.3 H Eosinophils # 1.0 H Basophils # 0.5 H Metamyelocytes # 0.5 H Myelocytes # 0.5 H Pathologist Review (Hematology) Toxic Granulation FEW Platelet Estimate NORMAL Hypochromasia 1+ Anisocytosis 1+ 2+ Macrocytosis 1+ 2+ Prothrombin Time 25.1 #H Prothrombin Time Ratio 2.0 INR International Normalized Ratio 2.25 Activated Partial Thromboplast Time 61.5 H Urine Color CONRADO Urine Clarity CLEAR Urine pH 6.0 Urine Specific [place] 1.014 Urine Ketones NEGATIVE Urine Nitrite NEGATIVE Urine Bilirubin 2+ H Urine Urobilinogen 2+ H Urine Leukocyte Esterase NEGATIVE Urine Microscopic RBC 1 Urine Microscopic WBC 2 Urine Squamous Epithelial Cells FEW Urine Bacteria FEW A Urine Mucus FEW A Urine Hemoglobin NEGATIVE Urine Glucose NEGATIVE Urine Total Protein 1+ H Path Consult Signing Pathologist KWADWO GRIDER MD Sodium Level 132 L 132 L Potassium Level 3.1 L 3.1 L Chloride Level 100 102 Carbon Dioxide Level 16 L 19 L Anion Gap 19 H 14 Blood Urea Nitrogen 5 L 4 L Creatinine 0.59 L 0.54 L Glucose Level 96 69 #L Calcium Level 8.4 8.3 L Total Bilirubin 15.9 H 13.7 H Direct Bilirubin 13.50 H 11.50 H Indirect Bilirubin 2.4 H 2.2 H Aspartate Amino Transf (AST/SGOT) 80 H 73 H Alanine Aminotransferase (ALT/SGPT) 26 30 Alkaline Phosphatase 362 H 317 H Total Protein 8.0 7.4 Albumin 3.1 L 2.6 L Globulin 4.90 H 4.80 H Albumin/Globulin Ratio 0.63 0.54 Lipase 34 Lymphocytes % Monocytes % Nucleated Red Blood Cells # Polychromasia 3+ Poikilocytosis 3+ Spherocytes 2+ Medications Medications Current Medications Piperacillin Sod/ Tazobactam Sod (Zosyn 3.375gm/ 50 ml (Pmx)) 50 ml @ 100 mls/ hr Q6 IVPB Last administered on 06/18/17 05:22; Admin Dose 100 MLS/HR; Start 06/18/17 at 00:00 Morphine Sulfate (morphine) 2 mg Q4H PRN IV PAIN Last administered on 13:58; Admin Dose 2 MG; Start 06/17/17 at 23:30 Methylprednisolone (Medrol) 32 mg DAILY PO Last administered on 06/18/17 09:07 ; Admin Dose 32 MG; Start 06/18/17 at 09:00; Stop 06/24/17 at 08:59 Thiamine HCl (Vitamin B1) 100 mg DAILY PO Last administered on 06/18/17 16:04 ; Admin Dose 100 MG; Start 06/18/17 at 15:30 Folic Acid (Folic Acid) 1 mg DAILY PO Last administered on 06/18/17 16:04; Admin Dose 1 MG; Start 06/18/17 at 15:30 Lorazepam (Ativan) 1 mg Q6H PRN PO ANXIETY; Start 06/18/17 at 15:30 LESLI SOLOMON Jun 18, 2017 16:43
[2017-06-18 17:43] LABS: ABNORMAL IP MESSAGE 1; HEMATOCRIT 28.6 % (42.0-52.0); MEAN CORPUSCULAR HEMOGLOBIN 30.7 pg (29.0-33.0); MEAN CORPUSCULAR VOLUME 87.7 fl (82.0-101.0); MEAN PLATELET VOLUME 10.9 fl (7.4-10.4); NUCLEATED RED BLOOD CELLS% 0.1 /100WBC (0.0-0.0); PLATELET COUNT 286 10^3/UL (140-415); POSITIVE DIFF @See below; RED BLOOD COUNT 3.26 10^6/ul (4.70-6.10); RED CELL DISTRIBUTION WIDTH 23.3 % (11.5-14.5)
[2017-06-18] MEDS: HYDROmorphONE 1 MG/ML SYG IV PRN ×2 (18:54→23:33)
[2017-06-18 19:00] LABS: ANISOCYTOSIS 2+ (0-0); EOSINOPHILS % (M) 1 % (0-7); MONOCYTES % (M) 1 % (0-11); PLATELET ESTIMATE NORMAL; POIKILOCYTOSIS 2+ (0-0); TARGET CELLS 2+ (0-0)
[2017-06-18 20:00] VITALS: BP 112/63; RESP 20
[2017-06-18] MEDS ORDERED: LACTULOSE 30ML CUP ONE (20:47)
[2017-06-18 21:10] LABS: PATH REVIEW? NO
[2017-06-18] MEDS: LACTULOSE 30ML CUP PO SCH (21:55)
[2017-06-18] MEDS: ONDANSETRON 4 MG INJ IV PRN (21:56)
[2017-06-19] VITALS (16 sets, daily range): BP systolic 71–121; BP diastolic 36–75; PULSE 82–100; RESP 16–63
[2017-06-19] MEDS: HYDROmorphONE 1 MG/ML SYG IV PRN ×6 (03:32→21:36)
[2017-06-19] MEDS: LACTULOSE 30ML CUP PO SCH ×3 (05:39→23:48)
[2017-06-19] MEDS: PIPER-TAZO 3.375 GM IV (PMX) 50 ML IVPB SCH ×3 (05:39→18:22)
[2017-06-19 05:52] LABS: ALBUMIN/GLOBULIN RATIO 0.63; BILIRUBIN,DIRECT 12.9 mg/dl (0.00-0.20); BILIRUBIN,INDIRECT 2.6 mg/dl (0-1.1); BILIRUBIN,TOTAL 15.5 mg/dl (0.2-1.3); CALCIUM 8.4 mg/dl (8.4-10.2); CREATININE 0.59 mg/dl (0.61-1.24); POTASSIUM 3.7 mmol/L (3.5-5.1); TOTAL PROTEIN 7.7 g/dl (6.1-8.1)
[2017-06-19] MEDS ORDERED: LIDOCAINE 2% (SDV) 5 ML INJ ONE (07:00)
[2017-06-19] MEDS: FOLIC ACID 1 MG TAB PO SCH (09:00)
[2017-06-19] MEDS: METHYLPREDNISOLONE 4 MG TAB PO SCH (09:00)
[2017-06-19] MEDS: THIAMINE 100 MG TAB PO SCH (09:00)
[2017-06-19] MEDS ORDERED: PROPOFOL 40 ML ONE (13:30)
[2017-06-19] MEDS ORDERED: OCTREOTIDE 1 MG in SOD CHLORIDE 0.9% 95 ML IV SCH (14:00)
[2017-06-19] MEDS ORDERED: PANTOPRAZOLE IV 80 MG in SOD CHLORIDE 0.9% 100 ML IVPB ONE (14:00)
[2017-06-19] MEDS ORDERED: OCTREOTIDE 50 MCG in SOD CHLORIDE 0.9% 50 ML IVPB ONE ×2 (14:00→22:00)
--- NOTE | 2017-06-19 14:00 | OPR ---
Date/Time of Note Date/Time of Note DATE: 06/19/17 TIME: 13:54 Operative Report Free Text/Dictation Recommendations: 1. patient needs to be on protonix and octreotide gtt as he has esophageal varices and bleeding antral ulcer. I ordered it and pls give JOB 2. clear liquid diet 3. alcohol cessation. Procedure Date: Jun 19, 2017 Preoperative Diagnosis melena, anemia, alcoholic cirrhosis Postoperative Diagnosis antral bleeding ulcer with adherent clot, MOST LIKELY THE BLEEDING SOURCE severe portal hypertensive gastropathy moderate sized esophageal vaRICES Operation/Procedure Performed EGD with hemoclip placement of bleeding gastric antral ulcer with hemostasis Surgeon see signature line Armature And Rotor Winder none Anesthesia Type: MAC Anesthesiologist: CHARANJIT BENNETT Estimated Blood Loss: 0 - 10 ml's Transfusion none Specimen none Grafts/Implants none Tubes/Drains none Complications none Pt Condition Post Procedure: stable Disposition: PACU Indications melena, Procedure Description after informed consent and time out, I inserted an adult EGD scope from the mouth and advanced to 2nd portion of the duodenum. Retroflexion performed in gastric body to examine cardia and fundus. GEJ at 40 cm, cannot evaluate Z line due to moderate sized esophageal varices. Esophageal varices were not treated due to bleeding antral ulcer in case we need to repeat EGD to treat antral ulcer again. A hemoclip was placed on the gastric antral ulcer to achieve hemostasis. FRANDY HODGES MD Jun 19, 2017 14:00
[2017-06-19] MEDS ORDERED: EPHEDrine SULFATE 50 MG/5 ML SYG ONE (14:11)
--- NOTE | 2017-06-19 15:30 | PN ---
Date/Time of Note Date/Time of Note DATE: 06/19/17 TIME: 15:21 Assessment/Plan VTE Prophylaxis VTE Prophylaxis Intervention: SCD's Lines/Catheters IV Catheter Type (from Nrsg): Peripheral IV Assessment/Plan Assessment/Plan 1. Alcoholic liver disease with jaundice, ascites, coagulopathy and hypoalbuminemia, follow up with LFTs 2. Esophageal varices with bleeding on protonix and will put on octreotide gtt per GI 2. Jaundice due to alcoholic liver disease 3. Persistent leukocytosis, unlikely infection, on zosyn 4. Alcoholism, thiamine/folic/ativan prn 5. Anemia, follow up with H/H Subjective 24 Hr Interval Summary Free Text/Dictation less abdominal pain Exam/Review of Systems Vital Signs Vitals Vital Signs Date Time Temp Pulse Resp B/P Pulse Ox O2 Delivery O2 Flow Rate FiO2 06/19/17 14:40 93 108/67 Room Air 06/19/17 14:31 17 95 06/19/17 14:00 97.2 Intake and Output 06/18/17 06/18/17 06/19/17 15:00 23:00 07:00 Intake Total 1020 ml 730 ml Balance 1020 ml 730 ml Exam Constitutional: alert, oriented, well developed Psych: nl mood/affect, no complaints Head: atraumatic, normocephalic Eyes: EOMI, PERRL, nl conjunctiva, nl lids ENMT: mucosa pink and moist, nl external ears & nose, nl lips & teeth, nl nasal mucosa & septum Neck: non-tender, supple Respiratory: clear to auscultation, normal air movement, No congested cough, No crackles/rales, No diminished breath sounds, No intercostal retraction, No labored breathing, No other, No respirations, No tactile fremitus, No wheezing Cardiovascular: nl pulses, regular rate and rhythm, No S3, No S4, No bruits, No diastolic murmur, No edema, No gallop, No irregular rhythm, No jugular venous distention (JVD), No murmurs/extra sounds, No other, No rub, No systolic murmur Gastrointestinal: non-tender, soft Musculoskeletal: nl extremities to inspection Extremities: normal pulses, No calf tenderness, No clubbing, No cyanosis, No edema, No other, No palpable cord, No pitting pedal edema, No tenderness 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: CORPORATE TRAVEL COORDINATOR II-XII intact, nl mental status, nl speech, nl strength Skin: nl turgor Results Result Diagram: 06/18/17 1723 06/19/17 0449 Results 24 hrs Laboratory Tests Test 06/18/17 17:23 06/19/17 04:49 White Blood Count 56.0 H Red Blood Count 3.26 L Hemoglobin 10.0 L Hematocrit 28.6 L Mean Corpuscular Volume 87.7 Mean Corpuscular Hemoglobin 30.7 Mean Corpuscular Hemoglobin Concent 35.0 Red Cell Distribution Width 23.3 H Platelet Count 286 Mean Platelet Volume 10.9 H Neutrophils % Segmented Neutrophils % (Manual) 82 H Band Neutrophils % (Manual) 13 H Lymphocytes % Lymphocytes % (Manual) 2 L Monocytes % Monocytes % (Manual) 1 Eosinophils % Eosinophils % (Manual) 1 Basophils % Nucleated Red Blood Cells % 0.1 H Neutrophils # Neutrophils # (Manual) 50.0 H Band Neutrophils # 7.2 H Absolute Lymphocytes (Manual) 1.1 Lymphocytes # Monocytes # Absolute Monocytes (Manual) 0.5 Eosinophils # Basophils # Nucleated Red Blood Cells # Pathologist Review (Hematology) NO Platelet Estimate NORMAL Poikilocytosis 2+ Anisocytosis 2+ Macrocytosis 2+ Target Cells 2+ Ammonia 72 #H Sodium Level 132 L Potassium Level 3.7 Chloride Level 102 Carbon Dioxide Level 18 L Anion Gap 16 Blood Urea Nitrogen 7 Creatinine 0.59 L Glucose Level 108 Calcium Level 8.4 Total Bilirubin 15.5 H Direct Bilirubin 12.90 H Indirect Bilirubin 2.6 H Aspartate Amino Transf (AST/SGOT) 50 H Alanine Aminotransferase (ALT/SGPT) 26 Alkaline Phosphatase 338 H Total Protein 7.7 Albumin 3.0 L Globulin 4.70 H Albumin/Globulin Ratio 0.63 Medications Medications Current Medications Piperacillin Sod/ Tazobactam Sod (Zosyn 3.375gm/ 50 ml (Pmx)) 50 ml @ 100 mls/ hr Q6 IVPB Last administered on 06/19/17 13:03; Admin Dose 100 MLS/HR; Start 06/18/17 at 00:00 Methylprednisolone (Medrol) 32 mg DAILY PO Last administered on 06/18/17 09:07 ; Admin Dose 32 MG; Start 06/18/17 at 09:00; Stop 06/24/17 at 08:59 Thiamine HCl (Vitamin B1) 100 mg DAILY PO Last administered on 06/18/17 16:04 ; Admin Dose 100 MG; Start 06/18/17 at 15:30 Folic Acid (Folic Acid) 1 mg DAILY PO Last administered on 06/18/17 16:04; Admin Dose 1 MG; Start 06/18/17 at 15:30 Lorazepam (Ativan) 1 mg Q6H PRN PO ANXIETY; Start 06/18/17 at 15:30 Lactulose (Enulose) 20 gm Q8 PO Last administered on 06/19/17 15:14; Admin Dose 20 GM; Start 06/18/17 at 22:00 Hydromorphone HCl (Dilaudid) 1 mg Q3H PRN IV PAIN LEVEL 7-10 Last administered on 06/19/17 15:14; Admin Dose 1 MG; Start 06/18/17 at 18:30 Ondansetron HCl 4 mg 4 mg Q4H PRN IV NAUSEA AND/OR VOMITING Last administered on 06/18/17 21:56; Admin Dose 4 MG; Start 06/18/17 at 20:30 Pantoprazole 80 mg/Sodium Chloride 100 ml @ 10 mls/hr Q10H IV ; Start at 14:00 Octreotide Acetate/Sodium Chloride (Sandostatin/NS) 100 ml @ 5 mls/hr Q20H IV ; Start 06/19/17 at 14:00 VIRGINIA FRENCH MD Jun 19, 2017 15:30
[2017-06-19] MEDS: PANTOPRAZOLE IV 80 MG in SOD CHLORIDE 0.9% 100 ML IV SCH (16:33)
--- NOTE | 2017-06-19 17:34 | RADRPT ---
PROCEDURE: US Abdomen (limited). CLINICAL INDICATION: Abdominal pain and distension. TECHNIQUE: Multiple real-time longitudinal and transverse images of the four quadrants of the abdo men were acquired utilizing a curved array transducer. Images were reviewed on a high-resolution PAC S workstation. COMPARISON: None FINDINGS: There is no free fluid in the abdomen. Paracentesis was not performed. Incidental note is made of splenomegaly with the spleen measuring 16.4 cm in length. IMPRESSION: 1. No free fluid in the abdomen. 2. Paracentesis was not performed. 3. Incidental note made of splenomegaly. RPTAT: QQ .Aki Estrada MD, MD Date Time Electronically viewed and signed by .Aki Estrada MD, MD on 06/19/2017 17:33 .R/
[2017-06-19] MEDS: PANTOPRAZOLE 40 MG INJ IV SCH (18:21)
[2017-06-19] MEDS: OCTREOTIDE 1 MG in SOD CHLORIDE 0.9% 95 ML IV SCH (22:08)
[2017-06-20] VITALS (12 sets, daily range): BP systolic 109–131; BP diastolic 56–75; PULSE 80–97; RESP 17–19
[2017-06-20] MEDS: HYDROmorphONE 1 MG/ML SYG IV PRN ×7 (00:56→22:11)
[2017-06-20] MEDS: PIPER-TAZO 3.375 GM IV (PMX) 50 ML IVPB SCH ×4 (00:56→17:14)
[2017-06-20] MEDS: PANTOPRAZOLE IV 80 MG in SOD CHLORIDE 0.9% 100 ML IV SCH ×5 (02:37→20:00)
[2017-06-20 06:17] LABS: ABNORMAL IP MESSAGE 1; HEMATOCRIT 27.5 % (42.0-52.0); HEMOGLOBIN 9.4 g/dl (14.0-18.0); MEAN CORPUSCULAR HEMOGLOBIN 30.3 pg (29.0-33.0); MEAN CORPUSCULAR HGB CONC 34.2 g/dl (32.0-37.0); MEAN CORPUSCULAR VOLUME 88.7 fl (82.0-101.0); MEAN PLATELET VOLUME 10.8 fl (7.4-10.4); NUCLEATED RED BLOOD CELLS% 0.1 /100WBC (0.0-0.0); PLATELET COUNT 271 10^3/UL (140-415); POSITIVE DIFF @See below; RED CELL DISTRIBUTION WIDTH 23.6 % (11.5-14.5); WHITE BLOOD COUNT 49.2 10^3/ul (4.8-10.8)
[2017-06-20] MEDS: PANTOPRAZOLE 40 MG INJ IV SCH (06:17)
[2017-06-20] MEDS: LACTULOSE 30ML CUP PO SCH ×3 (06:17→22:00)
[2017-06-20 06:45] LABS: ALBUMIN 2.9 g/dl (3.3-4.9); ALBUMIN/GLOBULIN RATIO 0.67; BILIRUBIN,DIRECT 11.8 mg/dl (0.00-0.20); BILIRUBIN,INDIRECT 2.4 mg/dl (0-1.1); BILIRUBIN,TOTAL 14.2 mg/dl (0.2-1.3); CALCIUM 8.2 mg/dl (8.4-10.2); CREATININE 0.62 mg/dl (0.61-1.24); TOTAL PROTEIN 7.2 g/dl (6.1-8.1)
[2017-06-20 07:16] LABS: POTASSIUM 3.3 mmol/L (3.5-5.1)
[2017-06-20] MEDS: FOLIC ACID 1 MG TAB PO SCH (08:09)
[2017-06-20] MEDS: THIAMINE 100 MG TAB PO SCH (08:09)
[2017-06-20] MEDS: METHYLPREDNISOLONE 4 MG TAB PO SCH (08:10)
[2017-06-20 09:13] LABS: ANISOCYTOSIS 2+ (0-0); EOSINOPHILS % (M) 3 % (0-7); HYPOCHROMASIA 1+ (0-0); METAMYELOCYTES %M 3 % (0-0); MONOCYTES % (M) 3 % (0-11); PLATELET ESTIMATE NORMAL; POIKILOCYTOSIS 1+ (0-0); POLYCHROMASIA 1+ (0-0)
[2017-06-20] MEDS ORDERED: POTASSIUM CHLORIDE (SR) 20 MEQ TAB PO STA (10:38)
--- NOTE | 2017-06-20 10:45 | PN ---
Date/Time of Note Date/Time of Note DATE: 06/20/17 TIME: 10:36 Assessment/Plan VTE Prophylaxis VTE Prophylaxis Intervention: SCD's Lines/Catheters IV Catheter Type (from Nrs): Peripheral IV Assessment/Plan Chief Complaint/Hosp Course Assessment/Plan: 31-year-old male with: 1. Alcoholic liver disease with jaundice, ascites, coagulopathy and hypoalbuminemia -Monitor LFTs, continue lactulose for hepatic encephalopathy, monitor ammonia levels 2. Esophageal varices with bleeding - status post EGD yesterday (see below for results, antral ulcer found bleeding) -Follow-up GI recommendations, monitor for any bleeding, follow up with LFTs -Continue octreotide and PPI per GI recommendations 3. Persistent leukocytosis, unlikely infection, on zosyn -Follow-up final culture results, continue antibiotics 4. Alcoholism, thiamine/folic/ativan prn 5. Anemia, follow up with H/H Problems: Subjective 24 Hr Interval Summary Free Text/Dictation patient had EGD yesterday. Still on octreotide and Protonix drip. Exam/Review of Systems Vital Signs Vitals Vital Signs Date Time Temp Pulse Resp B/P Pulse Ox O2 Delivery O2 Flow Rate FiO2 06/20/17 08:08 94 06/20/17 07:17 98.7 19 118/58 95 06/19/17 14:40 Room Air Intake and Output 06/19/17 06/19/17 06/20/17 15:00 23:00 07:00 Intake Total 50 ml 450 ml 1465 ml Balance 50 ml 450 ml 1465 ml Exam Constitutional: alert, oriented, well developed Head: atraumatic, normocephalic Eyes: EOMI, PERRL, nl conjunctiva, nl lids ENMT: mucosa pink and moist, nl external ears & nose, nl lips & teeth, nl nasal mucosa & septum Neck: non-tender, supple Respiratory: clear to auscultation, normal air movement, No congested cough, No crackles/rales, No diminished breath sounds, No intercostal retraction, No labored breathing, No other, No respirations, No tactile fremitus, No wheezing Cardiovascular: nl pulses, regular rate and rhythm, No S3, No S4, No bruits, No diastolic murmur, No edema, No gallop, No irregular rhythm, No jugular venous distention (JVD), No murmurs/extra sounds, No other, No rub, No systolic murmur Gastrointestinal: non-tender, soft Musculoskeletal: nl extremities to inspection Extremities: normal pulses, No calf tenderness, No clubbing, No cyanosis, No edema, No other, No palpable cord, No pitting pedal edema, No tenderness 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: OUTPATIENT SCHEDULER II-XII intact, nl mental status, nl speech, nl strength Results Result Diagram: 06/20/17 0555 06/20/17 0555 Results 24 hrs Laboratory Tests Test 06/20/17 05:55 White Blood Count 49.2 H Red Blood Count 3.10 L Hemoglobin 9.4 L Hematocrit 27.5 L Mean Corpuscular Volume 88.7 Mean Corpuscular Hemoglobin 30.3 Mean Corpuscular Hemoglobin Concent 34.2 Red Cell Distribution Width 23.6 H Platelet Count 271 Mean Platelet Volume 10.8 H Neutrophils % Segmented Neutrophils % (Manual) 75 Band Neutrophils % (Manual) 15 H Lymphocytes % Lymphocytes % (Manual) 1 L Monocytes % Monocytes % (Manual) 3 Eosinophils % Eosinophils % (Manual) 3 Basophils % Metamyelocytes % (manual) 3 H Nucleated Red Blood Cells % 0.1 H Neutrophils # Neutrophils # (Manual) 40.5 H Band Neutrophils # 7.3 H Absolute Lymphocytes (Manual) 0.4 L Lymphocytes # Monocytes # Absolute Monocytes (Manual) 1.4 H Eosinophils # Basophils # Metamyelocytes # 1.4 H Nucleated Red Blood Cells # Platelet Estimate NORMAL Polychromasia 1+ Hypochromasia 1+ Poikilocytosis 1+ Anisocytosis 2+ Macrocytosis 2+ Sodium Level 134 L Potassium Level 3.3 L Chloride Level 103 Carbon Dioxide Level 18 L Anion Gap 16 Blood Urea Nitrogen 10 Creatinine 0.62 Glucose Level 108 Calcium Level 8.2 L Total Bilirubin 14.2 H Direct Bilirubin 11.80 H Indirect Bilirubin 2.4 H Aspartate Amino Transf (AST/SGOT) 78 #H Alanine Aminotransferase (ALT/SGPT) 28 Alkaline Phosphatase 305 H Total Protein 7.2 Albumin 2.9 L Globulin 4.30 H Albumin/Globulin Ratio 0.67 Medications Medications Current Medications Piperacillin Sod/ Tazobactam Sod (Zosyn 3.375gm/ 50 ml (Pmx)) 50 ml @ 100 mls/ hr Q6 IVPB Last administered on 06/20/17t 06:17; Admin Dose 100 MLS/HR; Start 06/18/17 at 00:00 Methylprednisolone (Medrol) 32 mg DAILY PO Last administered on 06/20/17 08: 10; Admin Dose 32 MG; Start 06/18/17 at 09:00; Stop 06/24/17 at 08:59 Thiamine HCl (Vitamin B1) 100 mg DAILY PO Last administered on 06/20/17 08:09 ; Admin Dose 100 MG; Start 06/18/17 at 15:30 Folic Acid (Folic Acid) 1 mg DAILY PO Last administered on 06/20/17 08:09; Admin Dose 1 MG; Start 06/18/17 at 15:30 Lorazepam (Ativan) 1 mg Q6H PRN PO ANXIETY; Start 06/18/17 at 15:30 Lactulose (Enulose) 20 gm Q8 PO Last administered on 06/20/17 06:17; Admin Dose 20 GM; Start 06/18/17 at 22:00 Hydromorphone HCl (Dilaudid) 1 mg Q3H PRN IV PAIN LEVEL 7-10 Last administered on 06/20/17 08:10; Admin Dose 1 MG; Start 06/18/17 at 18:30 Ondansetron HCl 4 mg 4 mg Q4H PRN IV NAUSEA AND/OR VOMITING Last administered on 06/18/17 21:56; Admin Dose 4 MG; Start 06/18/17 at 20:30 Pantoprazole/ Sodium Chloride (Protonix Iv/NS) 100 ml @ 10 mls/hr Q10H IV Last administered on 06/20/17 02:37; Admin Dose 10 MLS/HR; Start 06/19/17 at 14:00 Pantoprazole 40 mg 40 mg BID@06,18 IV Last administered on 06/20/17 06:17; Admin Dose 40 MG; Start 06/19/17 at 18:00 Octreotide Acetate/Sodium Chloride (Sandostatin/NS) 100 ml @ 5 mls/hr Q20H IV Last administered on 06/19/17 22:08; Admin Dose 5 MLS/HR; Start 06/19/17 at 22:15 HEATHER GORDON 11, 2017 10:45
[2017-06-20] MEDS ORDERED: FUROSEMIDE 20 MG INJ IV ONE (11:30)
--- NOTE | 2017-06-20 13:42 | CONS ---
Date/Time of Note Date/Time of Note DATE: 06/20/17 TIME: 13:38 Assessment/Plan Assessment/Plan Chief Complaint/Hosp Course Impression: 1. alcoholic liver disease 2. anemia from upper GIB likely source is esophageal varices s/p banding on 05/26 3. large hip Recommendations: 1. continue protonix and octreotide gtt as he has esophageal varices and bleeding antral ulcer for another 24 hrs. 2. advance diet to cardiac 3. alcohol cessation. 4. coagulopathy s/p FFP but no post-transfusion labs obtained. It is important given hemostasis is done to keep hgb over 7, PLT over 50 and INR less than 1.5. Thus I will order labs including labs tomorrow AM. Problems: Consultation Date/Type/Reason Admit Date/Time Jun 17, 2017 at 22:00 Initial Consult Date 06/18/17 Type of Consultation: GI 24 HR Interval Summary Free Text/Dictation complains of large hip, no hematemesis, no n/v Exam/Review of Systems Vital Signs Vitals Vital Signs Date Time Temp Pulse Resp B/P Pulse Ox O2 Delivery O2 Flow Rate FiO2 06/20/17 12:04 90 06/20/17 11:18 98.6 19 117/66 97 06/19/17 14:40 Room Air Intake and Output 06/19/17 06/19/17 06/20/17 15:00 23:00 07:00 Intake Total 50 ml 450 ml 1465 ml Balance 50 ml 450 ml 1465 ml Exam Constitutional: alert, oriented, well developed Psych: nl mood/affect, no complaints Head: atraumatic, normocephalic Eyes: EOMI, icteric, nl lids ENMT: mucosa pink and moist Neck: non-tender, supple Respiratory: clear to auscultation, normal air movement Cardiovascular: nl pulses, regular rate and rhythm Gastrointestinal: bowel sounds, non-tender, soft Results Result Diagram: 06/20/17 0555 06/20/17 0555 Results 24 hrs Laboratory Tests Test 06/20/17 05:55 White Blood Count 49.2 H Red Blood Count 3.10 L Hemoglobin 9.4 L Hematocrit 27.5 L Mean Corpuscular Volume 88.7 Mean Corpuscular Hemoglobin 30.3 Mean Corpuscular Hemoglobin Concent 34.2 Red Cell Distribution Width 23.6 H Platelet Count 271 Mean Platelet Volume 10.8 H Neutrophils % Segmented Neutrophils % (Manual) 75 Band Neutrophils % (Manual) 15 H Lymphocytes % Lymphocytes % (Manual) 1 L Monocytes % Monocytes % (Manual) 3 Eosinophils % Eosinophils % (Manual) 3 Basophils % Metamyelocytes % (manual) 3 H Nucleated Red Blood Cells % 0.1 H Neutrophils # Neutrophils # (Manual) 40.5 H Band Neutrophils # 7.3 H Absolute Lymphocytes (Manual) 0.4 L Lymphocytes # Monocytes # Absolute Monocytes (Manual) 1.4 H Eosinophils # Basophils # Metamyelocytes # 1.4 H Nucleated Red Blood Cells # Platelet Estimate NORMAL Polychromasia 1+ Hypochromasia 1+ Poikilocytosis 1+ Anisocytosis 2+ Macrocytosis 2+ Sodium Level 134 L Potassium Level 3.3 L Chloride Level 103 Carbon Dioxide Level 18 L Anion Gap 16 Blood Urea Nitrogen 10 Creatinine 0.62 Glucose Level 108 Calcium Level 8.2 L Total Bilirubin 14.2 H Direct Bilirubin 11.80 H Indirect Bilirubin 2.4 H Aspartate Amino Transf (AST/SGOT) 78 #H Alanine Aminotransferase (ALT/SGPT) 28 Alkaline Phosphatase 305 H Total Protein 7.2 Albumin 2.9 L Globulin 4.30 H Albumin/Globulin Ratio 0.67 Medications Medications Current Medications Piperacillin Sod/ Tazobactam Sod (Zosyn 3.375gm/ 50 ml (Pmx)) 50 ml @ 100 mls/ hr Q6 IVPB Last administered on 06/20/17 11:26; Admin Dose 100 MLS/HR; Start 06/18/17 at 00:00 Methylprednisolone (Medrol) 32 mg DAILY PO Last administered on 06/20/17 08: 10; Admin Dose 32 MG; Start 06/18/17 at 09:00; Stop 06/24/17 at 08:59 Thiamine HCl (Vitamin B1) 100 mg DAILY PO Last administered on 06/20/17 08:09 ; Admin Dose 100 MG; Start 06/18/17 at 15:30 Folic Acid (Folic Acid) 1 mg DAILY PO Last administered on 06/20/17 08:09; Admin Dose 1 MG; Start 06/18/17 at 15:30 Lorazepam (Ativan) 1 mg Q6H PRN PO ANXIETY; Start 06/18/17 at 15:30 Lactulose (Enulose) 20 gm Q8 PO Last administered on 06/20/17 06:17; Admin Dose 20 GM; Start 06/18/17 at 22:00 Hydromorphone HCl (Dilaudid) 1 mg Q3H PRN IV PAIN LEVEL 7-10 Last administered on 06/20/17 11:53; Admin Dose 1 MG; Start 06/18/17 at 18:30 Ondansetron HCl 4 mg 4 mg Q4H PRN IV NAUSEA AND/OR VOMITING Last administered on 06/18/17 21:56; Admin Dose 4 MG; Start 06/18/17 at 20:30 Pantoprazole 80 mg/Sodium Chloride 100 ml @ 10 mls/hr Q10H IV Last administered on 06/20/17 02:37; Admin Dose 10 MLS/HR; Start 06/19/17 at 14:00 Octreotide Acetate/Sodium Chloride (Sandostatin/NS) 100 ml @ 5 mls/hr Q20H IV Last administered on 06/19/17 22:08; Admin Dose 5 MLS/HR; Start 06/19/17 at 22:15 FRANDY HODGES MD Jun 20, 2017 13:42
[2017-06-20] MEDS ORDERED: IOHEXOL 300MG/ML 150 ML BTL ONE (15:57)
[2017-06-20] MEDS ORDERED: SOD CHLORIDE 0.9% 100 ML ONE (15:57)
--- NOTE | 2017-06-20 16:53 | RADRPT ---
PROCEDURE: CT Abdomen and Pelvis with contrast. CLINICAL INDICATION: Abdomen and pelvis pain. Jaundice. History of ulcers. TECHNIQUE: CT scan of the abdomen and pelvis with contrast was performed. The patient was scanned following the uncomplicated intravenous administration of 100 cc of Omnipaque-300. Coronal and sag ittal reformatted images were obtained from the axial source images. Images were reviewed on a high- resolution PACS workstation. Total exam DLP is 1026.69 mGy-cm. CTDIvol is 16.03 mGy. One or more of the following dose reduction techniques were used: Automated exposure control, adjustment of the mA and/or kV according to patient size, use of iterative reconstruction technique. DICOM images are available. COMPARISON: CT scan of the abdomen and pelvis without contrast dated 01/19/2017 FINDINGS: There is mild atelectasis at the lung bases posteriorly. Mild air space disease is also present post eriorly in the right upper lobe and posteriorly in the lingula inferiorly. The lung bases are otherw ise normal. There is no pleural effusion or pericardial effusion. The heart is enlarged. The liver is enlarged and has a nodular surface consistent with cirrhosis. There is portal hypertens ion with recanalization of the umbilical vein and multiple dilated veins in the upper abdomen. There are dilated veins adjacent to the distal esophagus and lesser curvature of the stomach consistent w ith varices. There is no focal hepatic lesion. There is diffuse gallbladder wall thickening. The bile ducts are normal. The spleen is enlarged. There is no focal splenic lesion. Both adrenals are normal with no enlargement or mass. The pancreas is unremarkable with no mass or evidence of pancreatitis. Both kidneys demonstrate normal contrast enhancement. There is no renal mass or hydronephrosis. The abdominal aorta is not dilated. There is no retroperitoneal lymphadenopathy or mass. There is no pelvic lymphadenopathy or mass. The bladder and distal ureters are normal. The appendix is well seen and appears normal. The bowel is normal. There is mild diffuse mesenteric edema and there is diffuse subcutaneous adipos e tissue edema consistent with anasarca. There is no free fluid or free gas. The osseous structures are unremarkable with no fracture or lytic lesion. IMPRESSION: 1. Atelectasis at the lung bases posteriorly and mild air space disease posteriorly in the right up per lobe and posteriorly in the lingula inferiorly, unchanged. 2. Cardiomegaly. 3. Hepatomegaly and nodular surface of the liver consistent with cirrhosis. 4. Portal hypertension with recanalization of the umbilical vein, multiple dilated veins in the upp er abdomen, esophageal and gastric varices. 5. Diffuse gallbladder wall thickening. Normal bile ducts. 6. Splenomegaly. 7. Anasarca. 8. Otherwise unremarkable study. RPTAT: QQ .Aki Estrada MD, MD Date Time Electronically viewed and signed by .Aki Estrada MD, MD on 06/20/2017 16:53 .R/
[2017-06-20] MEDS: OCTREOTIDE 1 MG in SOD CHLORIDE 0.9% 95 ML IV SCH (17:15)
[2017-06-21] VITALS (13 sets, daily range): BP systolic 108–133; BP diastolic 59–78; PULSE 60–99; RESP 17–20
[2017-06-21] MEDS: PIPER-TAZO 3.375 GM IV (PMX) 50 ML IVPB SCH ×4 (01:31→17:28)
[2017-06-21] MEDS: HYDROmorphONE 1 MG/ML SYG IV PRN ×7 (01:37→22:05)
[2017-06-21] MEDS: PANTOPRAZOLE IV 80 MG in SOD CHLORIDE 0.9% 100 ML IV SCH (04:13)
[2017-06-21] MEDS: LACTULOSE 30ML CUP PO SCH ×3 (05:52→17:28)
[2017-06-21 06:20] LABS: ABNORMAL IP MESSAGE 1; HEMATOCRIT 28.7 % (42.0-52.0); HEMOGLOBIN 9.8 g/dl (14.0-18.0); MEAN CORPUSCULAR HEMOGLOBIN 30.5 pg (29.0-33.0); MEAN CORPUSCULAR HGB CONC 34.1 g/dl (32.0-37.0); MEAN CORPUSCULAR VOLUME 89.4 fl (82.0-101.0); MEAN PLATELET VOLUME 10.7 fl (7.4-10.4); PLATELET COUNT 267 10^3/UL (140-415); POSITIVE DIFF @See below; RED BLOOD COUNT 3.21 10^6/ul (4.70-6.10); RED CELL DISTRIBUTION WIDTH 23.4 % (11.5-14.5); WHITE BLOOD COUNT 52.8 10^3/ul (4.8-10.8)
[2017-06-21 06:22] LABS: INR 2.3; PROTIME 25.6 Sec (12.2-14.2)
[2017-06-21 06:42] LABS: ALBUMIN 2.6 g/dl (3.3-4.9); ALBUMIN/GLOBULIN RATIO 0.59; BILIRUBIN,DIRECT 11.8 mg/dl (0.00-0.20); BILIRUBIN,INDIRECT 2.4 mg/dl (0-1.1); BILIRUBIN,TOTAL 14.2 mg/dl (0.2-1.3); CREATININE 0.55 mg/dl (0.61-1.24); POTASSIUM 3.2 mmol/L (3.5-5.1)
[2017-06-21] MEDS: THIAMINE 100 MG TAB PO SCH (08:20)
[2017-06-21] MEDS: FOLIC ACID 1 MG TAB PO SCH (08:20)
[2017-06-21] MEDS: METHYLPREDNISOLONE 4 MG TAB PO SCH (08:22)
--- NOTE | 2017-06-21 10:42 | CONS ---
Date/Time of Note Date/Time of Note DATE: 06/21/17 TIME: 10:37 Assessment/Plan Assessment/Plan Chief Complaint/Hosp Course Impression: 1. alcoholic liver disease 2. anemia from upper GIB likely source is esophageal varices s/p banding on 05/26 3. large hip due to swelling secondary to liver cirrhosis with low albumin Recommendations: 1. I dc octreotide and changed protonix to bid dosing 2. start diuretic with lasix and aldactone 3. alcohol cessation. 4. if he develop GI bleed, then needs to have coagulopathy corrected first 5. Dr. Ospina to resume care of this patient Problems: Consultation Date/Type/Reason Admit Date/Time Jun 17, 2017 at 22:00 Initial Consult Date 06/18/17 Type of Consultation: GI 24 HR Interval Summary Free Text/Dictation complains of body swelling, no n/v, feels weak and fatigued, wants more pain medication Exam/Review of Systems Vital Signs Vitals Vital Signs Date Time Temp Pulse Resp B/P Pulse Ox O2 Delivery O2 Flow Rate FiO2 06/21/17 08:01 99 06/21/17 07:15 98.2 20 108/59 98 06/19/17 14:40 Room Air Intake and Output 06/20/17 06/20/17 06/21/17 15:00 23:00 07:00 Intake Total 800 ml 2280 ml Balance 800 ml 2280 ml Exam Constitutional: alert, oriented, well developed Psych: nl mood/affect, no complaints Head: atraumatic, normocephalic Eyes: EOMI, nl conjunctiva, nl lids ENMT: nl external ears & nose, nl lips & teeth, nl nasal mucosa & septum Neck: non-tender, supple Respiratory: clear to auscultation, normal air movement Cardiovascular: nl pulses, regular rate and rhythm Gastrointestinal: bowel sounds, distended, non-tender, soft Results Result Diagram: 06/21/1744 06/21/17 0544 Results 24 hrs Laboratory Tests Test 06/21/17 05:44 06/21/17 05:49 White Blood Count 52.8 H Red Blood Count 3.21 L Hemoglobin 9.8 L Hematocrit 28.7 L Mean Corpuscular Volume 89.4 Mean Corpuscular Hemoglobin 30.5 Mean Corpuscular Hemoglobin Concent 34.1 Red Cell Distribution Width 23.4 H Platelet Count 267 Mean Platelet Volume 10.7 H Neutrophils % Lymphocytes % Monocytes % Eosinophils % Basophils % Nucleated Red Blood Cells % 0.0 Neutrophils # Lymphocytes # Monocytes # Eosinophils # Basophils # Nucleated Red Blood Cells # Prothrombin Time 25.6 H Prothrombin Time Ratio 2.0 INR International Normalized Ratio 2.30 Sodium Level 134 L Potassium Level 3.2 L Chloride Level 103 Carbon Dioxide Level 21 Anion Gap 13 Blood Urea Nitrogen 8 Creatinine 0.55 L Glucose Level 132 Calcium Level 8.0 L Total Bilirubin 14.2 H Direct Bilirubin 11.80 H Indirect Bilirubin 2.4 H Aspartate Amino Transf (AST/SGOT) 62 H Alanine Aminotransferase (ALT/SGPT) 38 Alkaline Phosphatase 274 H Ammonia 93 H Total Protein 7.0 Albumin 2.6 L Globulin 4.40 H Albumin/Globulin Ratio 0.59 Lab Scanned Report BLOOD TRANSFUSION Medications Medications Current Medications Piperacillin Sod/ Tazobactam Sod (Zosyn 3.375gm/ 50 ml (Pmx)) 50 ml @ 100 mls/ hr Q6 IVPB Last administered on 06/21/17 05:51; Admin Dose 100 MLS/HR; Start 06/18/17 at 00:00 Methylprednisolone (Medrol) 32 mg DAILY PO Last administered on 06/21/17 08: 22; Admin Dose 32 MG; Start 06/18/17 at 09:00; Stop 06/24/17 at 08:59 Thiamine HCl (Vitamin B1) 100 mg DAILY PO Last administered on 06/21/17 08:20 ; Admin Dose 100 MG; Start 06/18/17 at 15:30 Folic Acid (Folic Acid) 1 mg DAILY PO Last administered on 06/21/17 08:20; Admin Dose 1 MG; Start 06/18/17 at 15:30 Lorazepam (Ativan) 1 mg Q6H PRN PO ANXIETY; Start 06/18/17 at 15:30 Lactulose (Enulose) 20 gm Q8 PO Last administered on 06/20/17 14:23; Admin Dose 20 GM; Start 06/18/17 at 22:00 Hydromorphone HCl (Dilaudid) 1 mg Q3H PRN IV PAIN LEVEL 7-10 Last administered on 06/21/17 08:16; Admin Dose 1 MG; Start 06/18/17 at 18:30 Ondansetron HCl (Zofran Inj) 4 mg Q4H PRN IV NAUSEA AND/OR VOMITING Last administered on 06/18/17t 21:56; Admin Dose 4 MG; Start 06/18/17 at 20:30 FRANDY HODGES MD Jun 21, 2017 10:42
[2017-06-21] MEDS ORDERED: SPIRONOLACTONE 50 MG TAB PO ONE (11:00)
--- NOTE | 2017-06-21 11:07 | PN ---
Date/Time of Note Date/Time of Note DATE: 06/21/17 TIME: 11:02 Assessment/Plan VTE Prophylaxis VTE Prophylaxis Intervention: SCD's Lines/Catheters IV Catheter Type (from [facility]): Peripheral IV Assessment/Plan Chief Complaint/Hosp Course Assessment/Plan: 31-year-old male with: 1. Alcoholic liver disease with jaundice, ascites, coagulopathy and hypoalbuminemia -more elevated today, patient still answering questions appropriately. LFTs including direct and indirect bilirubin still significantly elevated. -Monitor LFTs, continue will increase dose of lactulose for hepatic encephalopathy, monitor ammonia levels 2. Esophageal varices with bleeding - status post EGD 2 days ago (see below for results, antral ulcer found bleeding). Was treated with PPI and octreotide earlier. -Follow-up GI recommendations, monitor for any bleeding, LFTs 3. Persistent leukocytosis, unlikely infection, on zosyn, but also on methylprednisolone -Follow-up final culture results, continue antibiotics 4. Alcoholism, thiamine/folic/ativan prn 5. Anemia, follow up with H/H Problems: Subjective 24 Hr Interval Summary Free Text/Dictation Seen by GI team this morning, no acute events overnight. Exam/Review of Systems Vital Signs Vitals Vital Signs Date Time Temp Pulse Resp B/P Pulse Ox O2 Delivery O2 Flow Rate FiO2 06/21/17 08:01 99 06/21/17 07:15 98.2 20 108/59 98 06/19/17 14:40 Room Air Intake and Output 06/20/17 06/20/17 06/21/17 15:00 23:00 07:00 Intake Total 800 ml 2280 ml Balance 800 ml 2280 ml Results Result Diagram: 06/21/17 0544 06/21/17 0544 Results 24 hrs Laboratory Tests Test 06/21/17 05:44 06/21/17 05:49 White Blood Count 52.8 H Red Blood Count 3.21 L Hemoglobin 9.8 L Hematocrit 28.7 L Mean Corpuscular Volume 89.4 Mean Corpuscular Hemoglobin 30.5 Mean Corpuscular Hemoglobin Concent 34.1 Red Cell Distribution Width 23.4 H Platelet Count 267 Mean Platelet Volume 10.7 H Neutrophils % Lymphocytes % Monocytes % Eosinophils % Basophils % Nucleated Red Blood Cells % 0.0 Neutrophils # Lymphocytes # Monocytes # Eosinophils # Basophils # Nucleated Red Blood Cells # Prothrombin Time 25.6 H Prothrombin Time Ratio 2.0 INR International Normalized Ratio 2.30 Sodium Level 134 L Potassium Level 3.2 L Chloride Level 103 Carbon Dioxide Level 21 Anion Gap 13 Blood Urea Nitrogen 8 Creatinine 0.55 L Glucose Level 132 Calcium Level 8.0 L Total Bilirubin 14.2 H Direct Bilirubin 11.80 H Indirect Bilirubin 2.4 H Aspartate Amino Transf (AST/SGOT) 62 H Alanine Aminotransferase (ALT/SGPT) 38 Alkaline Phosphatase 274 H Ammonia 93 H Total Protein 7.0 Albumin 2.6 L Globulin 4.40 H Albumin/Globulin Ratio 0.59 Lab Scanned Report BLOOD TRANSFUSION Medications Medications Current Medications Piperacillin Sod/ Tazobactam Sod (Zosyn 3.375gm/ 50 ml (Pmx)) 50 ml @ 100 mls/ hr Q6 IVPB Last administered on 06/21/17 05:51; Admin Dose 100 MLS/HR; Start 06/18/17 at 00:00 Methylprednisolone (Medrol) 32 mg DAILY PO Last administered on 06/21/17 08: 22; Admin Dose 32 MG; Start 06/18/17 at 09:00; Stop 06/24/17 at 08:59 Thiamine HCl (Vitamin B1) 100 mg DAILY PO Last administered on 06/21/17 08:20 ; Admin Dose 100 MG; Start 06/18/17 at 15:30 Folic Acid (Folic Acid) 1 mg DAILY PO Last administered on 06/21/17 08:20; Admin Dose 1 MG; Start 06/18/17 at 15:30 Lorazepam (Ativan) 1 mg Q6H PRN PO ANXIETY; Start 06/18/17 at 15:30 Hydromorphone HCl (Dilaudid) 1 mg Q3H PRN IV PAIN LEVEL 7-10 Last administered on 06/21/17 08:16; Admin Dose 1 MG; Start 06/18/17 at 18:30 Ondansetron HCl (Zofran Inj) 4 mg Q4H PRN IV NAUSEA AND/OR VOMITING Last administered on 06/18/17 21:56; Admin Dose 4 MG; Start 06/18/17 at 20:30 Furosemide (Lasix) 20 mg DAILY PO ; Start 06/22/17 at 09:00 Lactulose (Enulose) 30 gm Q6 PO ; Start 06/21/17 at 12:00; Status UNV Procedures Procedures EGD: Impression: antral bleeding ulcer with adherent clot, MOST LIKELY THE BLEEDING SOURCE severe portal hypertensive gastropathy moderate sized esophageal vaRICES HEATHER GORDON Jun 21, 2017 11:07
[2017-06-21] MEDS ORDERED: oxyCODONE (CR) 15 MG TAB [oxyCONTIN] PO SCH (15:00)
[2017-06-21] MEDS ORDERED: oxyCODONE (CR) 15 MG TAB [oxyCONTIN] PO PRN (15:00)
[2017-06-21] MEDS: oxyCODONE (CR) 15 MG TAB [oxyCONTIN] PO SCH (16:13)
[2017-06-21] MEDS ORDERED: POTASSIUM CHLORIDE (SR) 20 MEQ TAB PO STA (20:24)
[2017-06-22 00:11] VITALS: PULSE 89
[2017-06-22] MEDS: LACTULOSE 30ML CUP PO SCH ×5 (01:30→23:42)
[2017-06-22] MEDS: HYDROmorphONE 1 MG/ML SYG IV PRN ×7 (01:30→23:43)
[2017-06-22] MEDS: PIPER-TAZO 3.375 GM IV (PMX) 50 ML IVPB SCH ×2 (01:36→06:01)
[2017-06-22 01:52] VITALS: BP 126/75; RESP 16
[2017-06-22] MEDS: oxyCODONE (CR) 15 MG TAB [oxyCONTIN] PO SCH ×2 (02:38→09:06)
[2017-06-22 06:11] LABS: ABNORMAL IP MESSAGE 1; HEMATOCRIT 31.3 % (42.0-52.0); HEMOGLOBIN 10.3 g/dl (14.0-18.0); MEAN CORPUSCULAR HEMOGLOBIN 29.6 pg (29.0-33.0); MEAN CORPUSCULAR HGB CONC 32.9 g/dl (32.0-37.0); MEAN CORPUSCULAR VOLUME 89.9 fl (82.0-101.0); MEAN PLATELET VOLUME 11.5 fl (7.4-10.4); PLATELET COUNT 301 10^3/UL (140-415); POSITIVE DIFF @See below; RED BLOOD COUNT 3.48 10^6/ul (4.70-6.10); RED CELL DISTRIBUTION WIDTH 24.3 % (11.5-14.5); WHITE BLOOD COUNT 67.7 10^3/ul (4.8-10.8)
[2017-06-22 06:29] LABS: CALCIUM 8.4 mg/dl (8.4-10.2); CREATININE 0.5 mg/dl (0.61-1.24); POTASSIUM 3.4 mmol/L (3.5-5.1)
[2017-06-22 07:47] VITALS: BP 123/56; RESP 17
[2017-06-22] MEDS: FOLIC ACID 1 MG TAB PO SCH (09:04)
[2017-06-22] MEDS: FUROSEMIDE 20 MG TAB PO SCH (09:04)
[2017-06-22 09:05] LABS: ANISOCYTOSIS 2+ (0-0); MONOCYTES % (M) 2 % (0-11); MYELOCYTES % (M) 1 % (0-0); PLATELET ESTIMATE NORMAL; POLYCHROMASIA 3+ (0-0)
[2017-06-22] MEDS: METHYLPREDNISOLONE 4 MG TAB PO SCH (09:06)
[2017-06-22] MEDS: THIAMINE 100 MG TAB PO SCH (09:06)
[2017-06-22] MEDS ORDERED: POTASSIUM CHLORIDE (SR) 20 MEQ TAB PO STA (10:06)
[2017-06-22] MEDS ORDERED: LACT20SO2 PO (12:18)
[2017-06-22] MEDS ORDERED: PRED20TA PO (12:18)
[2017-06-22] MEDS ORDERED: LAS20 PO (12:18)
[2017-06-22] MEDS ORDERED: PANT40TA4 PO (12:19)
[2017-06-22] MEDS ORDERED: THIA100T56 PO (12:19)
[2017-06-22] MEDS ORDERED: FOLI-49 PO (12:19)
--- NOTE | 2017-06-22 12:20 | PDOCDIS ---
Discharge Instructions CONDITION Patient Condition: Guarded HOME CARE INSTRUCTIONS: Special Diet: Cardiac FOLLOW UP/APPOINTMENTS Follow-up Plan It is imperative that you stop drinking. Please follow up with your regular doctor within 1 week for blood work Please follow up with the liver doctor using the information given to you by the rifle case repairer SHIRA RAO MD Jun 22, 2017 12:20
--- NOTE | 2017-06-22 12:23 | DS ---
Date/Time of Note Date/Time of Note DATE: 06/22/17 TIME: 12:21 Discharge Summary Admission/Discharge Info Admit Date/Time Jun 17, 2017 at 22:00 Discharge Date/Time Discharge Diagnosis severe alcoholic hepatitis complicated by esophageal varices, antral gastric ulcer Patient Condition: Guarded Consults GI Procedures 11.10 EGD Preoperative Diagnosis melena, anemia, alcoholic cirrhosis Postoperative Diagnosis antral bleeding ulcer with adherent clot, MOST LIKELY THE BLEEDING SOURCE severe portal hypertensive gastropathy moderate sized esophageal vaRICES Operation/Procedure Performed EGD with hemoclip placement of bleeding gastric antral ulcer with hemostasis Procedure Description after informed consent and time out, I inserted an adult EGD scope from the mouth and advanced to 2nd portion of the duodenum. Retroflexion performed in gastric body to examine cardia and fundus. GEJ at 40 cm, cannot evaluate Z line due to moderate sized esophageal varices. Esophageal varices were not treated due to bleeding antral ulcer in case we need to repeat EGD to treat antral ulcer again. A hemoclip was placed on the gastric antral ulcer to achieve hemostasis. 11.11 CT AP IMPRESSION: 1. Atelectasis at the lung bases posteriorly and mild air space disease posteriorly in the right upper lobe and posteriorly in the lingula inferiorly, unchanged. 2. Cardiomegaly. 3. Hepatomegaly and nodular surface of the liver consistent with cirrhosis. 4. Portal hypertension with recanalization of the umbilical vein, multiple dilated veins in the upper abdomen, esophageal and gastric varices. 5. Diffuse gallbladder wall thickening. Normal bile ducts. 6. Splenomegaly. 7. Anasarca. 8. Otherwise unremarkable study. 11.10 Abd US IMPRESSION: 1. No free fluid in the abdomen. 2. Paracentesis was not performed. 3. Incidental note made of splenomegaly. 11.8 Abd US IMPRESSION: Gallbladder is contracted and not well seen. Thickening of the gallbladder wall may be secondary to contraction and ascites. No gross evidence of gallstones noted. Mild to moderate amount of ascites. Hx of Present Illness This is a 31-year-old male with a history of decompensated alcoholic liver disease/hepatitis, persistent leukocytosis and hyperbilirubinemia who presented to the ER complaining of abdominal pain and yellowing of his eyes and skin. Patient was admitted here a few months ago for alcoholic hepatitis. At that time he had a total bilirubin of 15 and a WBC of 50,000. He continues to drink saying that last drink was 2 weeks ago. When he presented to the ER this time, total bilirubin worsened, now 16 with a DB of 13.5. WBC pretty much unchanged, 51,000. He also presented with worsening coagulopathy. Right upper quadrant ultrasound shows contracted gallbladder and a mild to moderate ascites. Hospital Course Pt admitted for abd pain. EGD done . notable for bleeding gastric antral ulcer. Pt started on BID PPI for gastric ulcer. Pt's Maddrey score 76 thus high dose steroids started. Pt with persistent leukocytosis even prior to initiation of steroids. Pt seen by steve for this during admit 3 mos ago. Etio thought to be 2/2 underlying chronic liver disease. No indication for BMB Alcohol cessation repeatedly advised and pt also seen by aamir and given community resources for addiction. copy of dc summary faxed to [facility] Home Meds Reported Medications Ibuprofen* (Ibuprofen*) 800 Mg Tab, 800 MG PO TID for PAIN LEVEL 4-7, TAB 06/17/17 Acetaminophen with Codeine (Acetaminophen-Cod #3 Tablet) 1 Each Tablet, 1 TAB PO Q4H WHILE AWAKE Y for PAIN LEVEL 1-5, #7 TAB 06/17/17 Multivitamins* (Theragran*) 1 Tab Tab, 1 TAB PO DAILY, TAB 06/17/17 Discontinued Scripts Tramadol Hcl* (Ultram*) 50 Mg Tablet, 50 MG PO Q6H Y for PAIN, #20 TAB Prov:BRENNON RASMUSSEN NP 02/07/17 Furosemide* (Furosemide*) 40 Mg Tablet, 40 MG PO DAILY for 30 Days, TAB Prov:BRENNON RASMUSSEN NP 02/07/17 Spironolactone* (Aldactone*) 50 Mg Tablet, 50 MG PO DAILY for 30 Days, TAB Prov:BRENNON RASMUSSEN NP 02/07/17 Methylprednisolone* (Methylprednisolone*) 32 Mg Tablet, 24 MG PO DAILY for 7 Days, TAB Methylprednisolone 24 mg p.o. daily 1 week, then Methylprednisolone 20 mg p.o. daily 1 week, then Methylprednisolone 16 mg p.o. daily 1 week, then Methylprednisolone 12 mg p.o. daily 1 week, then Methylprednisolone 8 mg p.o. daily 1 week, then Methylprednisolone 4 mg p.o. daily 1 week. Prov:BRENNON RASMUSSEN NP 02/07/17 Folic Acid* (Folic Acid*) 1 Mg Tablet, 2 MG PO DAILY for 30 Days, #30 TAB 2 Refills Prov:HERBERT ESPARZA MD 01/18/17 Hydrocortisone* Rectal (Anucort-HC* Supp) 25 Mg Supp, 25 MG GA TID Y for HEMORROID PAIN/ITCHING for 10 Days, #10 SUPP 2 Refills Prov:HERBERT ESPARZA MD 01/18/17 Polyethylene Glycol* (Miralax*) 17 Gm Powd.pack, 17 GM PO BID for 10 Days, #20 3 Refills Prov:HERBERT ESPARZA MD 01/18/17 Sennosides/Docusate Sodium (Senna Plus Tablet) 1 Each Tablet, 2 TAB PO HS for 10 Days, #20 TAB 3 Refills Prov:HERBERT ESPARZA MD 01/18/17 [Thiamine] 100 MG TAB No Conflict Check, 100 MG PO DAILY for 30 Days, #30 5 Refills Prov:HERBERT ESPARZA MD 01/15/17 Propranolol Hcl* (Propranolol Hcl*) 10 Mg Tablet, 10 MG PO TID for 10 Days, #30 TAB 2 Refills Prov:HERBERT ESPARZA MD 01/15/17 Pantoprazole* (Pantoprazole*) 40 Mg Tablet.dr, 40 MG PO DAILY@06 for 7 Days, #7 Prov:HERBERT ESPARZA MD 01/15/17 Follow-up Plan It is imperative that you stop drinking. Please follow up with your regular doctor within 1 week for blood work Please follow up with the liver doctor using the information given to you by the disability case managermanager of network Provider [facility] Time spent on discharge: > 30 minutes Pending Labs Laboratory Tests Test 06/22/17 05:00 06/22/17 05:07 Ammonia 78umol/l (9-30) White Blood Count 67.710^3/ul (4.8-10.8) Red Blood Count 3.4810^6/ul (4.70-6.10) Hemoglobin 10.3g/dl (14.0-18.0) Hematocrit 31.3% (42.0-52.0) Mean Corpuscular Volume 89.9fl (82.0-101.0) Mean Corpuscular Hemoglobin 29.6pg (29.0-33.0) Mean Corpuscular Hemoglobin Concent 32.9g/dl (32.0-37.0) Red Cell Distribution Width 24.3% (11.5-14.5) Platelet Count 00168^3/UL (140-415) Mean Platelet Volume 11.5fl (7.4-10.4) Neutrophils % % (39.0-77.0) Segmented Neutrophils % (Manual) 76% (39-77) Band Neutrophils % (Manual) 16% (0-4) Lymphocytes % % (15.0-51.0) Lymphocytes % (Manual) 5% (15-51) Monocytes % % (0.0-11.0) Monocytes % (Manual) 2% (0-11) Eosinophils % % (0.0-7.0) Basophils % % (0.0-2.0) Myelocytes % (Manual) 1% (0-0) Nucleated Red Blood Cells % 0.0/100WBC (0.0-0.0) Neutrophils # 10^3/ul (1.6-7.5) Neutrophils # (Manual) 58.810^3/ul (1.7-7.5) Band Neutrophils # 10.810^3/ul (0.0-0.6) Absolute Lymphocytes (Manual) 3.310^3/ul (0.8-2.9) Lymphocytes # 10^3/ul (0.8-2.9) Monocytes # 10^3/ul (0.3-0.9) Absolute Monocytes (Manual) 1.310^3/ul (0.3-0.9) Eosinophils # 10^3/ul (0.0-0.5) Basophils # 10^3/ul (0.0-0.1) Myelocytes # 0.610^3/ul (0.0-0.0) Nucleated Red Blood Cells # 10^3/ul (0.0-0.0) Platelet Estimate NORMAL Polychromasia 3+ (0-0) Anisocytosis 2+ (0-0) Macrocytosis 2+ (0-0) Sodium Level 139mmol/L (135-144) Potassium Level 3.4mmol/L (3.5-5.1) Chloride Level 104mmol/L (97-110) Carbon Dioxide Level 22mmol/L (21-31) Anion Gap 16 (8-16) Blood Urea Nitrogen 9mg/dl (7-20) Creatinine 0.50mg/dl (0.61-1.24) Glucose Level 113mg/dl (70-220) Calcium Level 8.4mg/dl (8.4-10.2) Copies To: CC: IFTIKHAR GONZALEZ MD, ELLEN MD Jun 22, 2017 12:23
[2017-06-22 15:48] VITALS: BP 116/71; RESP 14
[2017-06-22] MEDS: PANTOPRAZOLE (EC) 40 MG TAB PO SCH (17:03)
[2017-06-22 20:20] VITALS: BP 119/62; RESP 20
[2017-06-23 02:33] VITALS: BP 105/57
[2017-06-23] MEDS: HYDROmorphONE 1 MG/ML SYG IV PRN ×7 (02:44→23:13)
[2017-06-23] MEDS: ONDANSETRON 4 MG INJ IV PRN (05:00)
[2017-06-23] MEDS: PANTOPRAZOLE (EC) 40 MG TAB PO SCH ×2 (05:00→17:57)
[2017-06-23] MEDS: LACTULOSE 30ML CUP PO SCH ×4 (05:00→23:14)
[2017-06-23 05:16] LABS: ABNORMAL IP MESSAGE 1; HEMATOCRIT 29.2 % (42.0-52.0); MEAN CORPUSCULAR HEMOGLOBIN 30.8 pg (29.0-33.0); MEAN CORPUSCULAR HGB CONC 34.2 g/dl (32.0-37.0); MEAN CORPUSCULAR VOLUME 89.8 fl (82.0-101.0); MEAN PLATELET VOLUME 10.7 fl (7.4-10.4); PLATELET COUNT 231 10^3/UL (140-415); POSITIVE DIFF @See below; RED BLOOD COUNT 3.25 10^6/ul (4.70-6.10); WHITE BLOOD COUNT 64.9 10^3/ul (4.8-10.8)
[2017-06-23 05:38] LABS: CALCIUM 8.4 mg/dl (8.4-10.2); CREATININE 0.43 mg/dl (0.61-1.24); POTASSIUM 3.5 mmol/L (3.5-5.1)
[2017-06-23 08:14] LABS: ANISOCYTOSIS 2+ (0-0); HYPOCHROMASIA 1+ (0-0); MONOCYTES % (M) 2 % (0-11); PLATELET ESTIMATE NORMAL; POIKILOCYTOSIS 2+ (0-0); POLYCHROMASIA 3+ (0-0); REACTIVE LYMPHOCYTES% (M) 2 % (0-0)
[2017-06-23 08:18] VITALS: BP 117/67; RESP 18
[2017-06-23] MEDS: FOLIC ACID 1 MG TAB PO SCH (08:39)
[2017-06-23] MEDS: METHYLPREDNISOLONE 4 MG TAB PO SCH (08:40)
[2017-06-23] MEDS: FUROSEMIDE 20 MG TAB PO SCH (08:40)
[2017-06-23] MEDS: THIAMINE 100 MG TAB PO SCH (08:41)
--- NOTE | 2017-06-23 13:21 | PN ---
Date/Time of Note Date/Time of Note DATE: 06/23/17 TIME: 13:14 Assessment/Plan VTE Prophylaxis VTE Prophylaxis Intervention: SCD's Lines/Catheters [facility] Saline Lock Urinary Cath still in place: No Assessment/Plan Chief Complaint/Hosp Course Summary Assessment and Plan: Assessment: Alcoholic hepatitis Anemia EGD 06/19 Antral bleeding ulcer with adherent clot, MOST LIKELY THE BLEEDING SOURCE Severe portal hypertensive gastropathy Moderate sized esophageal varices Leukocytosis/Alcoholic hepatitis- increased likely secondary to steroids Large hip due to swelling secondary to liver cirrhosis with low albumin Plan PPI bid dosing Continue diuretic with lasix and aldactone Alcohol cessation-patient verbalized understanding If he develop GI bleed, then needs to have coagulopathy corrected first Continue steroid therapy Patient seen in collaboration with Dr. Ospina Subjective: Course reviewed with nursing staff Patient interviewed and examined All labs, imaging and other results reviewed The patient is feeling better, has some abd pain, well controlled with pain meds Denies n/v, any overt signs of GI bleed, H/H stable Pt will need to follow up with GI in 3 months for reevaluation of esophageal varices Ok to be d/c'd from GI point of view if ok with primary and other consults PHYSICAL EXAMINATION: GENERAL: Jaundice, alert & oriented x 3, in no acute distress SKIN: No lesions, stigmata chronic liver disease, no evidence of bleeding diathesis LYMPHATIC: No palpable lymphadenopathy. HEAD: Normocephalic, atraumatic, no tenderness. EYES: Pupils equal reactive to light and accommodation, full extraocular movements, sclera clear, icteric, no discharge. EARS/NOSE AND THROAT: Ears normal, nose normal, NECK: Supple, no masses, thyroid normal, CHEST: Inspection within normal limits. CARDIOVASCULAR: Heart: Regular rate and rhythm, no murmurs, gallops or rubs. Peripheral pulses present within normal limits, no cyanosis, clubbing or edemas. No pulsatile abdominal mass RESPIRATORY: Lungs clear to auscultation and percussion, no wheezing, no rubs GASTROINTESTINAL AND LIVER: Abdomen: Soft, non tenderness, distended, no hernias , no masses, hepatomegaly, ascites, no guarding, no rebound tenderness, normoactive bowel sounds. Rectal: Deferred. GENITOURINARY: Male genitalia within normal limits. EXTREMITIES: Lateral lower extremity edema. Problems: Exam/Review of Systems Vital Signs Vitals Vital Signs Date Time Temp Pulse Resp B/P Pulse Ox O2 Delivery O2 Flow Rate FiO2 06/23/17 08:18 98.0 94 18 117/67 96 06/19/17 14:40 Room Air Intake and Output 06/22/17 06/22/17 06/23/17 15:00 23:00 07:00 Intake Total 750 ml 500 ml Balance 750 ml 500 ml Results Result Diagram: 06/23/17 0444 06/23/17 0444 Results 24 hrs Laboratory Tests Test 06/23/17 04:44 White Blood Count 64.9 H Red Blood Count 3.25 L Hemoglobin 10.0 L Hematocrit 29.2 L Mean Corpuscular Volume 89.8 Mean Corpuscular Hemoglobin 30.8 Mean Corpuscular Hemoglobin Concent 34.2 Red Cell Distribution Width 24.0 H Platelet Count 231 # Mean Platelet Volume 10.7 H Neutrophils % Segmented Neutrophils % (Manual) 81 H Band Neutrophils % (Manual) 14 H Lymphocytes % Lymphocytes % (Manual) 1 L Reactive Lymphocytes % (Manual) 2 H Monocytes % Monocytes % (Manual) 2 Eosinophils % Basophils % Nucleated Red Blood Cells % 0.0 Neutrophils # Neutrophils # (Manual) 58.4 H Band Neutrophils # 9.0 H Absolute Lymphocytes (Manual) 0.6 L Lymphocytes # Reactive Lymphocytes # 1.2 H Monocytes # Absolute Monocytes (Manual) 1.2 H Eosinophils # Basophils # Nucleated Red Blood Cells # Platelet Estimate NORMAL Polychromasia 3+ Hypochromasia 1+ Poikilocytosis 2+ Anisocytosis 2+ Macrocytosis 2+ Sodium Level 139 Potassium Level 3.5 Chloride Level 108 Carbon Dioxide Level 21 Anion Gap 14 Blood Urea Nitrogen 9 Creatinine 0.43 L Glucose Level 105 Calcium Level 8.4 Medications Medications Current Medications Methylprednisolone (Medrol) 32 mg DAILY PO Last administered on 06/23/17 08: 40; Admin Dose 32 MG; Start 06/18/17 at 09:00; Stop 06/24/17 at 08:59 Thiamine HCl (Vitamin B1) 100 mg DAILY PO Last administered on 06/23/17 08:41 ; Admin Dose 100 MG; Start 06/18/17 at 15:30 Folic Acid (Folic Acid) 1 mg DAILY PO Last administered on 06/23/17 08:39; Admin Dose 1 MG; Start 06/18/17 at 15:30 Lorazepam (Ativan) 1 mg Q6H PRN PO ANXIETY; Start 06/18/17 at 15:30 Hydromorphone HCl (Dilaudid) 1 mg Q3H PRN IV PAIN LEVEL 7-10 Last administered on 06/23/17 12:50; Admin Dose 1 MG; Start 06/18/17 at 18:30 Ondansetron HCl (Zofran Inj) 4 mg Q4H PRN IV NAUSEA AND/OR VOMITING Last administered on 06/23/17 05:00; Admin Dose 4 MG; Start 06/18/17 at 20:30 Furosemide (Lasix) 20 mg DAILY PO Last administered on 06/23/17 08:40; Admin Dose 20 MG; Start 06/22/17 at 09:00 Lactulose (Enulose) 30 gm Q6 PO Last administered on 06/23/17 12:50; Admin Dose 30 GM; Start 06/21/17 at 12:00 Pantoprazole (Protonix Tab) 40 mg BID@,18 PO Last administered on 06/23/17 05:00; Admin Dose 40 MG; Start 06/22/17 at 18:00 LESLI SOLOMON Jun 23, 2017 13:21
[2017-06-23] MEDS ORDERED: DIPHENHYDRAMINE 25 MG CAP PO PRN (15:00)
--- NOTE | 2017-06-23 15:54 | PN ---
Date/Time of Note Date/Time of Note DATE: 06/23/17 TIME: 15:52 Assessment/Plan VTE Prophylaxis VTE Prophylaxis Intervention: SCD's Lines/Catheters IV Catheter Type (from Nrsg): Saline Lock Urinary Cath still in place: No Assessment/Plan Chief Complaint/Hosp Course 31 yo M with EtOH cirrhosis admitted for abd pain, found to have bleeding stomach ulcer. -cont PPI -cont steroids for alcoholic hepatitis 2/2 cirrhosis -discharge pending pain management eval for pain control in setting of alcoholism Problems: Subjective 24 Hr Interval Summary Free Text/Dictation Pt sleeping this AM Exam/Review of Systems Vital Signs Vitals Vital Signs Date Time Temp Pulse Resp B/P Pulse Ox O2 Delivery O2 Flow Rate FiO2 06/23/17 08:18 98.0 94 18 117/67 96 06/19/17 14:40 Room Air Intake and Output 06/22/17 06/22/17 06/23/17 15:00 23:00 07:00 Intake Total 750 ml 500 ml Balance 750 ml 500 ml Exam nad no mrg lungs clear abd distended +jaundice and scleral icterus Results Result Diagram: 06/23/17 0444 06/23/17 0444 Results 24 hrs Laboratory Tests Test 06/23/17 04:44 White Blood Count 64.9 H Red Blood Count 3.25 L Hemoglobin 10.0 L Hematocrit 29.2 L Mean Corpuscular Volume 89.8 Mean Corpuscular Hemoglobin 30.8 Mean Corpuscular Hemoglobin Concent 34.2 Red Cell Distribution Width 24.0 H Platelet Count 231 # Mean Platelet Volume 10.7 H Neutrophils % Segmented Neutrophils % (Manual) 81 H Band Neutrophils % (Manual) 14 H Lymphocytes % Lymphocytes % (Manual) 1 L Reactive Lymphocytes % (Manual) 2 H Monocytes % Monocytes % (Manual) 2 Eosinophils % Basophils % Nucleated Red Blood Cells % 0.0 Neutrophils # Neutrophils # (Manual) 58.4 H Band Neutrophils # 9.0 H Absolute Lymphocytes (Manual) 0.6 L Lymphocytes # Reactive Lymphocytes # 1.2 H Monocytes # Absolute Monocytes (Manual) 1.2 H Eosinophils # Basophils # Nucleated Red Blood Cells # Platelet Estimate NORMAL Polychromasia 3+ Hypochromasia 1+ Poikilocytosis 2+ Anisocytosis 2+ Macrocytosis 2+ Sodium Level 139 Potassium Level 3.5 Chloride Level 108 Carbon Dioxide Level 21 Anion Gap 14 Blood Urea Nitrogen 9 Creatinine 0.43 L Glucose Level 105 Calcium Level 8.4 Medications Medications Current Medications Methylprednisolone (Medrol) 32 mg DAILY PO Last administered on 06/23/17 08: 40; Admin Dose 32 MG; Start 06/18/17 at 09:00; Stop 06/24/17 at 08:59 Thiamine HCl (Vitamin B1) 100 mg DAILY PO Last administered on 06/23/17 08:41 ; Admin Dose 100 MG; Start 06/18/17 at 15:30 Folic Acid (Folic Acid) 1 mg DAILY PO Last administered on 06/23/17 08:39; Admin Dose 1 MG; Start 06/18/17 at 15:30 Lorazepam (Ativan) 1 mg Q6H PRN PO ANXIETY; Start 06/18/17 at 15:30 Hydromorphone HCl (Dilaudid) 1 mg Q3H PRN IV PAIN LEVEL 7-10 Last administered on 06/23/17 12:50; Admin Dose 1 MG; Start 06/18/17 at 18:30 Ondansetron HCl (Zofran Inj) 4 mg Q4H PRN IV NAUSEA AND/OR VOMITING Last administered on 06/23/17 05:00; Admin Dose 4 MG; Start 06/18/17 at 20:30 Furosemide (Lasix) 20 mg DAILY PO Last administered on 06/23/17 08:40; Admin Dose 20 MG; Start 06/22/17 at 09:00 Lactulose (Enulose) 30 gm Q6 PO Last administered on 06/23/17 12:50; Admin Dose 30 GM; Start 06/21/17 at 12:00 Pantoprazole (Protonix Tab) 40 mg BID@,18 PO Last administered on 06/23/17 05:00; Admin Dose 40 MG; Start 06/22/17 at 18:00 Diphenhydramine HCl (Benadryl) 25 mg Q6H PRN PO ITCHING Last administered on 14:47; Admin Dose 25 MG; Start 06/23/17 at 15:00 SHIRA RAO MD Jun 23, 2017 15:54
[2017-06-23 20:15] VITALS: BP 123/59; RESP 20
[2017-06-24] MEDS: HYDROmorphONE 1 MG/ML SYG IV PRN ×5 (02:24→14:17)
[2017-06-24 02:33] VITALS: BP 122/57; RESP 18
[2017-06-24] MEDS: LACTULOSE 30ML CUP PO SCH ×2 (05:13→12:47)
[2017-06-24] MEDS: PANTOPRAZOLE (EC) 40 MG TAB PO SCH (05:13)
[2017-06-24 05:17] LABS: ABNORMAL IP MESSAGE 1; HEMATOCRIT 28.3 % (42.0-52.0); HEMOGLOBIN 9.6 g/dl (14.0-18.0); MEAN CORPUSCULAR HEMOGLOBIN 30.8 pg (29.0-33.0); MEAN CORPUSCULAR HGB CONC 33.9 g/dl (32.0-37.0); MEAN CORPUSCULAR VOLUME 90.7 fl (82.0-101.0); MEAN PLATELET VOLUME 10.8 fl (7.4-10.4); PLATELET COUNT 231 10^3/UL (140-415); POSITIVE DIFF @See below; RED BLOOD COUNT 3.12 10^6/ul (4.70-6.10); RED CELL DISTRIBUTION WIDTH 24.5 % (11.5-14.5); WHITE BLOOD COUNT 65.3 10^3/ul (4.8-10.8)
[2017-06-24 05:45] LABS: CALCIUM 8.4 mg/dl (8.4-10.2); CREATININE 0.47 mg/dl (0.61-1.24); POTASSIUM 3.3 mmol/L (3.5-5.1)
[2017-06-24 07:43] VITALS: BP 114/64; RESP 20
--- NOTE | 2017-06-24 07:59 | CONS ---
Date/Time of Note Date/Time of Note DATE: 06/24/17 TIME: 07:52 Assessment/Plan Assessment/Plan Additional Assessment/Plan First, long conversation with patient concerning use of opioids while actively drinking. I have explained to him that we cannot give him any opioids at the time of discharge because he still drinks and he still drives in spite of the fact that his license is restricted. Patient also admitted to me that he does smoke marijuana on occasion also. I did tell him that he can receive opioids only under one condition that he goes directly into an inpatient program either psychiatric or drug treatment. With that he refused. This gentleman has a history of drinking to excess or very long period of time he has no family history of alcohol addiction drug abuse or suicide. 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 He has never attended an inpatient treatment program and stated to me that he has no interest. In the course of seeking him he was negotiating for pain medications but understood that we will not prescribe any pain control medications when he is discharged. Patient is unkempt but speaks clearly and expresses his desires clearly and he is negotiating for pain control medications. States that he has had one DUI although denies use of any other illicit drugs other than marijuana. States that his pain is primarily in his upper abdomen right-hand side states her current pain medication or adequate that is what he wants to go home with pain medication states that his pain is 5/10 with pain control medications 3/10 does not describe his pain has been excruciating. It is not interfering with his mood or sleeping patterns physical function or family relationship denies nausea vomiting itching mental cloudiness fatigue there is no history from nursing staff that he has been oversedated patient did not appears to be intoxicated or under the influence of drugs. He does not describe any suicidal ideations he states that he is care group also drink but that he is eliminated those individuals from his life. However once again he states he has no interest in an inpatient program. Consultation Date/Type/Reason Admit Date/Time Jun 17, 2017 at 22:00 Constitutional: no complaints Eyes: other ("Yellowing of the eyes") ENT: no complaints Respiratory: no complaints Cardiovascular: no complaints Gastrointestinal: blood, decreased appetite, nausea, other (Weight loss), pain , No vomiting Musculoskeletal: other (Weakness) Psychological: nl mood/affect, no complaints Past Medical History Medical History: other (Pancreatitis) Past Surgical History Past Surgical Hx: no surgical history, other Social History Smoking Status: Current every day smoker Exam/Review of Systems Vital Signs Vitals Vital Signs Date Time Temp Pulse Resp B/P Pulse Ox O2 Delivery O2 Flow Rate FiO2 06/24/17 07:43 98.1 94 20 114/64 98 Intake and Output 06/23/17 06/23/17 06/24/17 15:00 23:00 07:00 Intake Total 920 ml 900 ml Balance 920 ml 900 ml Exam Constitutional: No alert, No distress, No frail, No non-verbal, No obese, No oriented, No other, No well developed Head: other (Anicteric sclera) 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: RADIATOR CORE TESTER II-XII intact, nl mental status, nl speech, nl strength, No DTR's symmetric, No confused, No focal weakness, No lethargic, No numbness , No other, No reflexes, No unresponsive Results Result Diagram: 06/24/1743306/24/17 0434 Results 24 hrs Laboratory Tests Test 06/24/17 04:34 White Blood Count 65.3 H Red Blood Count 3.12 L Hemoglobin 9.6 L Hematocrit 28.3 L Mean Corpuscular Volume 90.7 Mean Corpuscular Hemoglobin 30.8 Mean Corpuscular Hemoglobin Concent 33.9 Red Cell Distribution Width 24.5 H Platelet Count 231 Mean Platelet Volume 10.8 H Neutrophils % Lymphocytes % Monocytes % Eosinophils % Basophils % Nucleated Red Blood Cells % 0.0 Neutrophils # Lymphocytes # Monocytes # Eosinophils # Basophils # Nucleated Red Blood Cells # Sodium Level 138 Potassium Level 3.3 L Chloride Level 109 Carbon Dioxide Level 21 Anion Gap 11 Blood Urea Nitrogen 9 Creatinine 0.47 L Glucose Level 100 Calcium Level 8.4 Medications Medications Current Medications Methylprednisolone (Medrol) 32 mg DAILY PO Last administered on 06/23/17 08: 40; Admin Dose 32 MG; Start 06/18/17 at 09:00; Stop 06/24/17 at 08:59 Thiamine HCl (Vitamin B1) 100 mg DAILY PO Last administered on 06/23/17 08:41 ; Admin Dose 100 MG; Start 06/18/17 at 15:30 Folic Acid (Folic Acid) 1 mg DAILY PO Last administered on 06/23/17 08:39; Admin Dose 1 MG; Start 06/18/17 at 15:30 Lorazepam (Ativan) 1 mg Q6H PRN PO ANXIETY; Start 06/18/17 at 15:30 Hydromorphone HCl (Dilaudid) 1 mg Q3H PRN IV PAIN LEVEL 7-10 Last administered on 06/24/17 05:13; Admin Dose 1 MG; Start 06/18/17 at 18:30 Ondansetron HCl (Zofran Inj) 4 mg Q4H PRN IV NAUSEA AND/OR VOMITING Last administered on 06/23/17 05:00; Admin Dose 4 MG; Start 06/18/17 at 20:30 Furosemide (Lasix) 20 mg DAILY PO Last administered on 06/23/17 08:40; Admin Dose 20 MG; Start 06/22/17 at 09:00 Lactulose (Enulose) 30 gm Q6 PO Last administered on 06/24/17 05:13; Admin Dose 30 GM; Start 06/21/17 at 12:00 Pantoprazole (Protonix Tab) 40 mg BID@06,18 PO Last administered on 06/24/17 05:13; Admin Dose 40 MG; Start 06/22/17 at 18:00 Diphenhydramine HCl (Benadryl) 25 mg Q6H PRN PO ITCHING Last administered on 14:47; Admin Dose 25 MG; Start 06/23/17 at 15:00 EDMOND CHEEK Jun 24, 2017 07:59
[2017-06-24] MEDS: ONDANSETRON 4 MG INJ IV PRN (08:28)
[2017-06-24] MEDS: FUROSEMIDE 20 MG TAB PO SCH (08:29)
[2017-06-24] MEDS: THIAMINE 100 MG TAB PO SCH (08:29)
[2017-06-24] MEDS: FOLIC ACID 1 MG TAB PO SCH (08:29)
[2017-06-24 09:29] LABS: LYMPHOCYTES # 3.3 10^3/ul (0.8-2.9); MONOCYTE # 1.3 10^3/ul (0.3-0.9); MONOCYTES % (M) 2 % (0-11)
--- NOTE | 2017-06-24 09:54 | PDOCDIS ---
Discharge Instructions DIAGNOSIS Discharge Diagnosis severe alcoholic hepatitis complicated by esophageal varices, antral gastric ulcer CONDITION Patient Condition: Guarded HOME CARE INSTRUCTIONS: Diet Instructions: 2gm NaSpecial Diet: CARDIAC LOW CHOLESTEROL DIET ACTIVITY: Activity Restrictions: Slowly Increase Activity Rest between Activity Avoid heavy lifting Bathing Restrictions: Shower FOLLOW UP/APPOINTMENTS Follow-up Plan It is imperative that you stop drinking. Please follow up with your regular doctor within 1 week for blood work Please follow up with the liver doctor using the information given to you by the rn case manager SHIRA RAO MD Jun 24, 2017 09:54
--- NOTE | 2017-06-24 09:56 | DS ---
Date/Time of Note Date/Time of Note DATE: 06/24/17 TIME: 09:55 Discharge Summary Admission/Discharge Info Admit Date/Time Jun 17, 2017 at 22:00 Discharge Date/Time Discharge Diagnosis severe alcoholic hepatitis complicated by esophageal varices, antral gastric ulcer Patient Condition: Guarded Consults pain management, GI Procedures 11.10 EGD Preoperative Diagnosis melena, anemia, alcoholic cirrhosis Postoperative Diagnosis antral bleeding ulcer with adherent clot, MOST LIKELY THE BLEEDING SOURCE severe portal hypertensive gastropathy moderate sized esophageal vaRICES Operation/Procedure Performed EGD with hemoclip placement of bleeding gastric antral ulcer with hemostasis Procedure Description after informed consent and time out, I inserted an adult EGD scope from the mouth and advanced to 2nd portion of the duodenum. Retroflexion performed in gastric body to examine cardia and fundus. GEJ at 40 cm, cannot evaluate Z line due to moderate sized esophageal varices. Esophageal varices were not treated due to bleeding antral ulcer in case we need to repeat EGD to treat antral ulcer again. A hemoclip was placed on the gastric antral ulcer to achieve hemostasis. 11.11 CT AP IMPRESSION: 1. Atelectasis at the lung bases posteriorly and mild air space disease posteriorly in the right upper lobe and posteriorly in the lingula inferiorly, unchanged. 2. Cardiomegaly. 3. Hepatomegaly and nodular surface of the liver consistent with cirrhosis. 4. Portal hypertension with recanalization of the umbilical vein, multiple dilated veins in the upper abdomen, esophageal and gastric varices. 5. Diffuse gallbladder wall thickening. Normal bile ducts. 6. Splenomegaly. 7. Anasarca. 8. Otherwise unremarkable study. 11.10 Abd US IMPRESSION: 1. No free fluid in the abdomen. 2. Paracentesis was not performed. 3. Incidental note made of splenomegaly. 11.8 Abd US IMPRESSION: Gallbladder is contracted and not well seen. Thickening of the gallbladder wall may be secondary to contraction and ascites. No gross evidence of gallstones noted. Mild to moderate amount of ascites. Hx of Present Illness This is a 31-year-old male with a history of decompensated alcoholic liver disease/hepatitis, persistent leukocytosis and hyperbilirubinemia who presented to the ER complaining of abdominal pain and yellowing of his eyes and skin. Patient was admitted here a few months ago for alcoholic hepatitis. At that time he had a total bilirubin of 15 and a WBC of 50,000. He continues to drink saying that last drink was 2 weeks ago. When he presented to the ER this time, total bilirubin worsened, now 16 with a DB of 13.5. WBC pretty much unchanged, 51,000. He also presented with worsening coagulopathy. Right upper quadrant ultrasound shows contracted gallbladder and a mild to moderate ascites. Hospital Course Pt admitted for abd pain. EGD done 11. notable for bleeding gastric antral ulcer. Pt started on BID PPI for gastric ulcer. Pt's Maddrey score 76 thus high dose steroids started. Pt with persistent leukocytosis even prior to initiation of steroids. Pt seen by steve for this during admit 3 mos ago. Etio thought to be 2/2 underlying chronic liver disease. No indication for bone marrow biopsy Alcohol cessation repeatedly advised and pt also seen by aamir and given community resources for addiction. Pt was explicitly told by myself and social worker masters that if he does not stop drinking, he will likely pass away within the next few years. Indeed his MELD score based on admission labs is 28, which corresponds to a 20% risk of mortality in the next 3 months copy of dc summary faxed to [facility] Home Meds Active Scripts Thiamine* (Vitamin B-1*) 100 Mg Tablet, 100 MG PO DAILY for 30 Days, #30 TAB Prov:SHIRA RAO MD 06/22/17 Folic Acid* (Folic Acid*) 1 Mg Tablet, 1 MG PO DAILY for 30 Days, #30 TAB Prov:SHIRA RAO MD 06/22/17 Pantoprazole* (Pantoprazole*) 40 Mg Tablet.dr, 40 MG PO BID@06,18 for 30 Days, # 60 TAB Prov:SHIRA RAO MD 06/22/17 Prednisone* (Prednisone*) 20 Mg Tab, 40 MG PO DAILY for 28 Days, #56 TAB Prov:SHIRA RAO MD 06/22/17 Lactulose* (Lactulose*) 20 Gm/30 Ml Solution, 30 GM PO Q6 for 30 Days, #1 BOTTLE Prov:SHIRA RAO MD 06/22/17 Furosemide (Lasix) 20 Mg Tab, 20 MG PO DAILY for 30 Days, #30 TAB Prov:SHIRA RAO MD 06/22/17 Reported Medications Multivitamins* (Theragran*) 1 Tab Tab, 1 TAB PO DAILY, TAB 06/17/17 Discontinued Reported Medications Ibuprofen* (Ibuprofen*) 800 Mg Tab, 800 MG PO TID for PAIN LEVEL 4-7, TAB 06/17/17 Acetaminophen with Codeine (Acetaminophen-Cod #3 Tablet) 1 Each Tablet, 1 TAB PO Q4H WHILE AWAKE Y for PAIN LEVEL 1-5, #7 TAB 06/17/17 Discontinued Scripts Tramadol Hcl* (Ultram*) 50 Mg Tablet, 50 MG PO Q6H Y for PAIN, #20 TAB Prov:BRENNON RASMUSSEN NP 02/07/17 Furosemide* (Furosemide*) 40 Mg Tablet, 40 MG PO DAILY for 30 Days, TAB Prov:BRENNON RASMUSSEN NP 02/07/17 Spironolactone* (Aldactone*) 50 Mg Tablet, 50 MG PO DAILY for 30 Days, TAB Prov:BRENNON RASMUSSEN NP 02/07/17 Methylprednisolone* (Methylprednisolone*) 32 Mg Tablet, 24 MG PO DAILY for 7 Days, TAB Methylprednisolone 24 mg p.o. daily 1 week, then Methylprednisolone 20 mg p.o. daily 1 week, then Methylprednisolone 16 mg p.o. daily 1 week, then Methylprednisolone 12 mg p.o. daily 1 week, then Methylprednisolone 8 mg p.o. daily 1 week, then Methylprednisolone 4 mg p.o. daily 1 week. Prov:BRENNON RASMUSSEN NP 02/07/17 Folic Acid* (Folic Acid*) 1 Mg Tablet, 2 MG PO DAILY for 30 Days, #30 TAB 2 Refills Prov:HERBERT ESPARZA MD 01/18/17 Hydrocortisone* Rectal (Anucort-HC* Supp) 25 Mg Supp, 25 MG VT TID Y for HEMORROID PAIN/ITCHING for 10 Days, #10 SUPP 2 Refills Prov:HERBERT ESPARZA MD 01/18/17 Polyethylene Glycol* (Miralax*) 17 Gm Powd.pack, 17 GM PO BID for 10 Days, #20 3 Refills Prov:HERBERT ESPARZA MD 01/18/17 Sennosides/Docusate Sodium (Senna Plus Tablet) 1 Each Tablet, 2 TAB PO HS for 10 Days, #20 TAB 3 Refills Prov:HERBERT ESPARZA MD 01/18/17 [Thiamine] 100 MG TAB No Conflict Check, 100 MG PO DAILY for 30 Days, #30 5 Refills Prov:HERBETR ESPARZA MD 01/15/17 Propranolol Hcl* (Propranolol Hcl*) 10 Mg Tablet, 10 MG PO TID for 10 Days, #30 TAB 2 Refills Prov:HERBERT ESPARZA MD 01/15/17 Pantoprazole* (Pantoprazole*) 40 Mg Tablet.dr, 40 MG PO DAILY@06 for 7 Days, #7 Prov:HERBERT ESPARZA MD 01/15/17 Follow-up Plan It is imperative that you stop drinking. Please follow up with your regular doctor within 1 week for blood work Please follow up with the liver doctor using the information given to you by the case advocategeek squad manager Provider [facility] Time spent on discharge: > 30 minutes Pending Labs Laboratory Tests Test 06/24/17 04:34 White Blood Count 65.310^3/ul (4.8-10.8) Red Blood Count 3.1210^6/ul (4.70-6.10) Hemoglobin 9.6g/dl (14.0-18.0) Hematocrit 28.3% (42.0-52.0) Mean Corpuscular Volume 90.7fl (82.0-101.0) Mean Corpuscular Hemoglobin 30.8pg (29.0-33.0) Mean Corpuscular Hemoglobin Concent 33.9g/dl (32.0-37.0) Red Cell Distribution Width 24.5% (11.5-14.5) Platelet Count 07289^3/UL (140-415) Mean Platelet Volume 10.8fl (7.4-10.4) Neutrophils % % (39.0-77.0) Segmented Neutrophils % (Manual) 89% (39-77) Band Neutrophils % (Manual) 4% (0-4) Lymphocytes % % (15.0-51.0) Lymphocytes % (Manual) 5% (15-51) Monocytes % % (0.0-11.0) Monocytes % (Manual) 2% (0-11) Eosinophils % % (0.0-7.0) Basophils % % (0.0-2.0) Nucleated Red Blood Cells % 0.0/100WBC (0.0-0.0) Neutrophils # 10^3/ul (1.6-7.5) Neutrophils # (Manual) 59.810^3/ul (1.7-7.5) Band Neutrophils # 2.610^3/ul (0.0-0.6) Absolute Lymphocytes (Manual) 3.210^3/ul (0.8-2.9) Lymphocytes # 3.310^3/ul (0.8-2.9) Monocytes # 1.310^3/ul (0.3-0.9) Absolute Monocytes (Manual) 1.310^3/ul (0.3-0.9) Eosinophils # 10^3/ul (0.0-0.5) Basophils # 10^3/ul (0.0-0.1) Nucleated Red Blood Cells # 10^3/ul (0.0-0.0) Sodium Level 138mmol/L (135-144) Potassium Level 3.3mmol/L (3.5-5.1) Chloride Level 109mmol/L (97-110) Carbon Dioxide Level 21mmol/L (21-31) Anion Gap 11 (8-16) Blood Urea Nitrogen 9mg/dl (7-20) Creatinine 0.47mg/dl (0.61-1.24) Glucose Level 100mg/dl (70-220) Calcium Level 8.4mg/dl (8.4-10.2) Copies To: CC: IFTIKHAR GONZALEZ MD, ELLEN MD Jun 24, 2017 09:56
[2017-06-24] MEDS ORDERED: predniSOLONE (3 MG/ML) CUP PO ONE ×2 (13:00)
[2017-06-24 14:41] VITALS: BP 124/57; RESP 18
== END 2017-06-24 16:26 | disposition home or self-care (01) | DRG 432 ==
LOC: E/R 19:25 → PP2 22:00 → TEL 06-19 19:35 → MS1 06-22 01:19
PROVIDERS: ADMIT Internal Medicine; ATTEND Internal Medicine
PROC: 30233K1 Transfusion of Nonautologous Frozen Plasma into Peripheral Vein, Percutaneous Approach (ICD-10-PCS; 2017-06-19)
PROC: 0W3P8ZZ Control Bleeding in Gastrointestinal Tract, Via Natural or Artificial Opening Endoscopic (ICD-10-PCS; principal; 2017-06-19 15:00)
DX: K70.11 Alcoholic hepatitis with ascites (principal); K25.0 Acute gastric ulcer with hemorrhage; K70.31 Alcoholic cirrhosis of liver with ascites; I85.11 Secondary esophageal varices with bleeding; D68.9 Coagulation defect, unspecified; K76.6 Portal hypertension; D62 Acute posthemorrhagic anemia; F10.20 Alcohol dependence, uncomplicated; D72.829 Elevated white blood cell count, unspecified; F17.200 Nicotine dependence, unspecified, uncomplicated; K31.89 Other diseases of stomach and duodenum
CPT/HCPCS: 36415; 36430; 74177; 76705; 80048; 80053; 81001; 82140; 83690; 85025; 85610; 85730; 86850; 86900; 86901; 86920; 96374; 96375; J1940; C9113; J1170; J2270; J2405; J2543; J3370; J7050; J7509; J7510; P9059; Q9967

== ENCOUNTER 2017-06-24 20:53 | Emergency (ER) | payer OTHER ==
[~2017-06-24] VITALS: Ht 172.7 cm; Wt 82.2 kg
[~2017-06-24 20:53] MED LIST changes: -FURO40TA4 PO; -HYDR25SU37 PR; +LACT20SO2 PO; +LAS20 PO; -METH32TA2 PO; +MULTI PO; -POLY17PO6 PO; +PRED20TA PO; -PROP10TA6 PO; -SENN-88 PO; -SPIR50TA PO; +THIA100T56 PO; -TRAM-40 PO; -Thiamine PO
[2017-06-24 21:11] VITALS: Ht 172.7 cm; Wt 82.2 kg
[2017-06-25 03:00] VITALS: BP 128/74; PULSE 89; RESP 16; TEMP 98.3
--- NOTE | 2017-06-25 03:01 | ERD ---
ER Documentation Chief Complaint Chief Complaint bilateral feet swelling HPI The patient is a 31-year-old male, presenting to the ER because of chronic bilateral leg edema. He was discharged yesterday afternoon. He denies fever, chills, syncope, near syncope, dyspnea, abdominal pain, vomiting, dysuria, diarrhea. He smokes and drinks denies illicit drug Medical history: Alcoholic hepatitis, gastric ulcer, esophageal varices Surgical history: Esophageal varices banding ROS All systems reviewed and are negative except as per history of present illness. Medications Home Meds Active Scripts Thiamine* (Vitamin B-1*) 100 Mg Tablet, 100 MG PO DAILY for 30 Days, #30 TAB Prov:SHIRA RAO MD 06/22/17 Folic Acid* (Folic Acid*) 1 Mg Tablet, 1 MG PO DAILY for 30 Days, #30 TAB Prov:SHIRA RAO MD 06/22/17 Pantoprazole* (Pantoprazole*) 40 Mg Tablet.dr, 40 MG PO BID@06,18 for 30 Days, # 60 TAB Prov:SHIRA RAO MD 06/22/17 Prednisone* (Prednisone*) 20 Mg Tab, 40 MG PO DAILY for 28 Days, #56 TAB Prov:SHIRA RAO MD 06/22/17 Lactulose* (Lactulose*) 20 Gm/30 Ml Solution, 30 GM PO Q6 for 30 Days, #1 BOTTLE Prov:SHIRA RAO MD 06/22/17 Furosemide (Lasix) 20 Mg Tab, 20 MG PO DAILY for 30 Days, #30 TAB Prov:SHIRA RAO MD 06/22/17 Reported Medications Multivitamins* (Theragran*) 1 Tab Tab, 1 TAB PO DAILY, TAB 06/17/17 Discontinued Reported Medications Ibuprofen* (Ibuprofen*) 800 Mg Tab, 800 MG PO TID for PAIN LEVEL 4-7, TAB 06/17/17 Acetaminophen with Codeine (Acetaminophen-Cod #3 Tablet) 1 Each Tablet, 1 TAB PO Q4H WHILE AWAKE Y for PAIN LEVEL 1-5, #7 TAB 06/17/17 Allergies Allergies: Coded Allergies: shellfish derived (Unverified Allergy, Unknown, RASH, ITCHINESS, 06/17/17) PMhx/Soc History of Surgery: No Anesthesia Reaction: No Hx 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 Disorder: No Hx Respiratory Disorders: No Hx Cardiac Disorders: No Hx Psychiatric Problems: No Hx Miscellaneous Medical Probl: Yes (Liver issues) Hx Alcohol Use: Yes Hx Substance Use: No Hx Tobacco Use: Yes Physical Exam Vitals Vital Signs Date Time Temp Pulse Resp B/P Pulse Ox O2 Delivery O2 Flow Rate FiO2 06/24/17 21:11 98.3 105 20 128/74 99 Physical Exam Const: No acute distress. Jaundice Head: Atraumatic. Eyes: Icteric Conjunctiva. ENT: Normal External Ears, Nose and Mouth. Neck: Full range of motion. No meningismus. Resp: Clear to auscultation bilaterally. Cardio: Regular rate and rhythm. Abd: Soft, non distended, normal bowel sounds, non tender. Skin: No petechiae or rashes. Back: No midline or flank tenderness. Ext: Bilateral leg edema, minimal calf discomfort. Neur: Awake and alert. No focal deficit Psych: Normal Mood and Affect. Procedures/MDM [place] [id number] Radiology Main Line: [phone] DIAGNOSTIC IMAGING REPORT Patient: LIT WOOD : 1985 Age: 31 Sex: M MR #: [id number] DOS: 06/25/17 0315 Ordering MD: FLAQUITA DAUGHERTY MD Location: E/R Room/Bed: PROCEDURE: US Lower extremity Venous. CLINICAL INDICATION: Pain TECHNIQUE: Multiple sonographic images of the bilateral lower extremity deep venous system was obtained utilizing grayscale, color-flow, compressive sonography and doppler imaging with augmentation. The images were reviewed on a PACS workstation. COMPARISON: None. FINDINGS: There is normal compressibility and flow within the bilateral common femoral, deep femoral, superficial femoral, posterior tibial, peroneal and popliteal veins. Subcutaneous edema is noted bilaterally, severe in the calf. IMPRESSION: No sonographic evidence for deep venous thrombosis. Bilateral calf edema. Physician Deneen Date Time Electronically viewed and signed by Physician Deneen on 06/25/2017 03: 52 CS/ CC: FLAQUITA DAUGHERTY MD MEDICAL MAKING DECISION: The patient is a 41-year-old male, presenting with chronic peripheral edema, most likely due to cirrhosis The differential diagnoses considered include but are not limited to DVT, lymphedema, cellulitis, renal insufficiency Departure Diagnosis: Primary Impression: Peripheral edema Condition: Good Comments I discussed the findings with the patient. I advised the patient to follow-up with the primary physician in about 1-2 days, sooner if needed and return if any concern. Disclaimer: Inadvertent spelling and grammatical errors are likely due to EHR/ dictation software use and do not reflect on the overall quality of patient care. Also, please note that the electronic time recorded on this note does not necessarily reflect the actual time of the patient encounter. FLAQUITA DAUGHERTY MD Jun 25, 2017 03:01
--- NOTE | 2017-06-25 03:52 | RADRPT ---
PROCEDURE: US Lower extremity Venous. CLINICAL INDICATION: Pain TECHNIQUE: Multiple sonographic images of the bilateral lower extremity deep venous system was obt ained utilizing grayscale, color-flow, compressive sonography and doppler imaging with augmentation. The images were reviewed on a PACS workstation. COMPARISON: None. FINDINGS: There is normal compressibility and flow within the bilateral common femoral, deep femoral, superfic ial femoral, posterior tibial, peroneal and popliteal veins. Subcutaneous edema is noted bilaterall y, severe in the calf. IMPRESSION: No sonographic evidence for deep venous thrombosis. Bilateral calf edema. Physician Deneen Date Time Electronically viewed and signed by Physician Deneen on 06/25/2017 03:52 MAURY/
== END 2017-06-25 04:27 | disposition home or self-care (01) ==
LOC: E/R 20:53
DX: R60.0 Localized edema (principal)
CPT/HCPCS: 93970; Z7502

== ENCOUNTER 2017-06-26 21:28 | Inpatient (IN) | payer OTHER ==
[~2017-06-26] VITALS: Ht 172.7 cm; Wt 81.7 kg
[2017-06-27] VITALS (12 sets, daily range): BP systolic 94–119; BP diastolic 52–74; PULSE 71–94; RESP 16–18; Ht 172.7 cm; Wt 81.7 kg
[2017-06-27] MEDS ORDERED: SOD CHLORIDE 0.9% 1,000 ML IV SCH (02:09)
[2017-06-27] MEDS ORDERED: METHYLPREDNISOLONE 40 MG INJ IV ONE (02:30)
[2017-06-27] MEDS ORDERED: ACETAMINOPHEN 650 MG SUPP PR PRN (02:30)
[2017-06-27] MEDS ORDERED: NACL 0.9% 3 ML SYG IV SCH (02:30)
[2017-06-27] MEDS ORDERED: PANTOPRAZOLE 40 MG INJ IV SCH (02:45)
[2017-06-27 03:22] LABS: ABNORMAL IP MESSAGE 1; HEMATOCRIT 25.9 % (42.0-52.0); MEAN CORPUSCULAR HEMOGLOBIN 31.4 pg (29.0-33.0); MEAN CORPUSCULAR HGB CONC 34.7 g/dl (32.0-37.0); MEAN CORPUSCULAR VOLUME 90.2 fl (82.0-101.0); MEAN PLATELET VOLUME 11.8 fl (7.4-10.4); PLATELET COUNT 209 10^3/UL (140-415); POSITIVE DIFF @See below; RED BLOOD COUNT 2.87 10^6/ul (4.70-6.10); RED CELL DISTRIBUTION WIDTH 25.3 % (11.5-14.5); WHITE BLOOD COUNT 54.1 10^3/ul (4.8-10.8)
[2017-06-27] MEDS ORDERED: morphine 2 MG INJ IV PRN (03:30)
[2017-06-27 03:43] LABS: ALBUMIN 2.4 g/dl (3.3-4.9); ALBUMIN/GLOBULIN RATIO 0.63; BILIRUBIN,INDIRECT 2.1 mg/dl (0-1.1); BILIRUBIN,TOTAL 18.3 mg/dl (0.2-1.3); CREATININE 0.52 mg/dl (0.61-1.24); POTASSIUM 3.3 mmol/L (3.5-5.1); TOTAL PROTEIN 6.2 g/dl (6.1-8.1)
[2017-06-27 04:12] LABS: BILIRUBIN,DIRECT 16.2 mg/dl (0.00-0.20)
[2017-06-27 05:12] LABS: ADD UMIC YES; UR ASCORBIC ACID NEGATIVE (NEGATIVE); UR BACTERIA FEW /HPF (NONE SEEN); UR BILIRUBIN (Dip) 2+ mg/dL (NEGATIVE); UR BLOOD (Dip) NEGATIVE (NEGATIVE); UR CLARITY SLIGHTLY CLOUDY (CLEAR); UR COLOR AMBER (YELLOW); UR GLUCOSE (Dip) NEGATIVE (NEGATIVE); UR KETONES (Dip) NEGATIVE (NEGATIVE); UR LEUKOCYTE ESTERASE (Dip) NEGATIVE Leu/ul (NEGATIVE); UR MUCUS MODERATE /HPF (NONE SEEN); UR NITRITE (Dip) NEGATIVE (NEGATIVE); UR RBC 0 /HPF (0-5); UR SPECIFIC GRAVITY (Dip) 1.021 (1.003-1.030); UR SQUAMOUS EPITHELIAL CELL FEW /HPF (FEW); UR TOTAL PROTEIN (Dip) 1+ mg/dl (NEGATIVE); UR UROBILINOGEN (Dip) 2+ mg/dL (NEGATIVE)
--- NOTE | 2017-06-27 06:47 | HP ---
Date/Time of Note Date/Time of Note DATE: 06/27/17 TIME: 04:07 Assessment/Plan VTE Prophylaxis VTE Prophylaxis Intervention: SCD's Lines/Catheters IV [facility]ter [facility]from [facility] Saline Lock Urinary Cath still in place: No Assessment/Plan Chief Complaint/Hosp Course This is a 31-year-old male being admitted to the telemetry floor for: #1 hematemesis: Patient has a history of antral ulcer as well as esophageal varices and severely decompensated liver/alcoholic hepatitis and make him high risk. Hemoglobin on last discharge was 9.6 and on repeat labs today upon arrival at [facility] they are 9. Though he only had one episode of hematemesis I do feel he will need to be monitored closely. At the current time I will continue octreotide drip and Protonix twice daily. I will get a repeat set of labs CBC every 6 hours. CMP and coagulation studies. We will keep the patient n.p.o. we will check an ammonia level though at the current time patient appears to be alert and oriented 3 and a baseline mental status. Will consult GI. Patient will also need to be set up for outpatient rehab. #2 decompensated alcoholic liver disease/hepatitis: We will check an ammonia level to patient at the current time does not appear to be encephalopathic. She has a severely elevated hepatitis discriminant function. At the current time will continue 40 mg IV Solu-Medrol daily. Will hold Lasix and lactulose at the current time until patient is seen by GI and cleared for p.o. intake. #3 hyperbilirubinemia: Total bili 18, direct 16 which is increased from his previous admission. #4 persistent leukocytosis: This has been worked up in the past by hematology and likely consider secondary to patient's underlying severely decompensated alcoholic hepatitis. #5 DVT GI prophylaxis: SCDs, Protonix Further treatment strategy will be implemented as per the clinical course. Problems: HPI/ROS Admit Date/Time Admit Date/Time Jun 27, 2017 at 00:40 Hx of Present Illness cc: hematemesis This is a 31-year-old male who was recently discharged from [facility] on 06/24 being transferred from [place] for an episode of hematemesis. Patient has a history of decompensated alcoholic liver disease/hepatitis, persistent leukocytosis and hyperbilirubinemia. He also underwent an EGD on 06/19 where he was found to have:antral bleeding ulcer with adherent clot, severe portal hypertensive gastropathy, moderate sized esophageal varices. Patient states that he was at home and he vomited and noticed some blood around his food. He had one episode. At the [place] ER he was initiated on octreotide and Protonix and he was also given FFP secondary to him having an elevated INR. He denies any recent fevers. Patient reports that his last drink was approximately 3-4 weeks ago. He states that he wanted to go to rehab facility. He was started on prednisolone during his last admission however he states that he was not able to fill the prescription once he was discharged. Allergies: Shellfish Medications: See GEORGINA ROS Const: As per HPI Eyes : No pain discharge or redness or change in visual acuity ENT: No pain, sore throat, congestion, congestion, dysphagia or discharge Respiratory: No shortness of breath, cough, sputum, wheezing, or pleuritic pain Cardiovascular: No chest pain, palpitation, PND, or edema GI : As per HPI Genitourinary: No dysuria, hematuria, flank pain , discharge or CVA tenderness Musculoskeletal: No joint pain, back pain, neck pain, restricted range of motion in neck or joints Skin: No rash, bruising or hives Neuro: No headache, dizziness, syncope, seizure, focal weakness Endocrine: No polyuria, polydipsia, temperature intolerance Psych: No hallucination, depression, anxiety or suicidal ideation PMH/Family/Social Past Medical History decompensated alcoholic liver disease/hepatitis, hyperbilirubinemia and persistent leukocytosis Past Surgical History EGD with hemoclip placement of bleeding gastric antral ulcer with hemostasis on 06/19/2017 Past Surgical Hx: other Family History Significant Family History: no pertinent family hx Social History Alcohol Use: other (Last drink approximately 3-4 weeks ago as per the patient) Smoking Status: Current every day smoker Drug Use: none Exam/Review of Systems Vital Signs Vitals Vital Signs Date Time Temp Pulse Resp B/P Pulse Ox O2 Delivery O2 Flow Rate FiO2 06/27/17 02:19 97.6 98 16 113/58 98 Exam Exam General: Patient is lying in bed in no acute distress. HEENT: Atraumatic, normocephalic. Scleral icterus, the pupils are equal, round and reactive. Extraocular motor are intact Neck: Supple with full range of motion. No rigidity or meningismus Chest: Nontender Lungs: Clear to auscultation bilaterally no crackles rales or wheezing Heart: Normal S1-S2, Regular rhythm and rate. No murmur, S3, or S4 Abdomen: Soft, positive fluid wave, mild tenderness palpation, normal bowel sounds. Extremities: Trace edema of the bilateral lower extremities at the level of the ankles Neurologic: Normal mental status, speech normal, cranial nerves II through XII are intact, motor and sensory are intact, no focal weakness Skin: Extensive jaundice Additional Comments Pertinent labs from the outside transfer facility please see transfer documentation full report. Hemoglobin 10 Medications Medications Current Medications Sodium Chloride (NS) 1,000 ml @ 70 mls/hr [id number] IV Last administered on 02:42; Admin Dose 70 MLS/HR; Start 06/27/17 at 02:09 Acetaminophen (Tylenol Supp) 650 mg Q6H PRN [place] PAIN LEVEL 1-3 OR FEVER; Start 06/27/17 at 02:30 Pantoprazole (Protonix Iv) 40 mg BID@06,18 IV Last administered on 06/27/17 02:58; Admin Dose 40 MG; Start 06/27/17 at 02:45 Morphine Sulfate (morphine) 1 mg Q6H PRN IV PAIN; Start 06/27/17 at 03:30 TISHA HALLMAN Jun 27, 2017 06:47
[2017-06-27 08:13] LABS: ABNORMAL IP MESSAGE 1; HEMATOCRIT 28.1 % (42.0-52.0); HEMOGLOBIN 9.6 g/dl (14.0-18.0); MEAN CORPUSCULAR HEMOGLOBIN 31.3 pg (29.0-33.0); MEAN CORPUSCULAR HGB CONC 34.2 g/dl (32.0-37.0); MEAN CORPUSCULAR VOLUME 91.5 fl (82.0-101.0); MEAN PLATELET VOLUME 12.1 fl (7.4-10.4); PLATELET COUNT 232 10^3/UL (140-415); POSITIVE DIFF @See below; RED BLOOD COUNT 3.07 10^6/ul (4.70-6.10); RED CELL DISTRIBUTION WIDTH 25.8 % (11.5-14.5); WHITE BLOOD COUNT 57.4 10^3/ul (4.8-10.8)
[2017-06-27] MEDS ORDERED: OCTREOTIDE 50 MCG in SOD CHLORIDE 0.9% 50 ML IVPB ONE (09:00)
[2017-06-27] MEDS ORDERED: OCTREOTIDE 100 MCG in SOD CHLORIDE 0.9% 50 ML IVPB SCH (09:30)
[2017-06-27] MEDS ORDERED: morphine 2 MG INJ ONE (10:39)
--- NOTE | 2017-06-27 10:41 | CONS ---
Date/Time of Note Date/Time of Note DATE: 06/27/17 TIME: 10:32 Assessment/Plan Assessment/Plan Chief Complaint/Hosp Course Assessment: Episode of mild hematemesis/clinically insignificant so far History of bleeding gastric ulcer post Endo Clip placement History of moderate-sized esophageal varices History of severe portal hypertensive gastropathy History of severe alcoholic hepatitis with deep jaundice and severe leukocytosis Severe leukocytosis no evidence of septic foci May be related to alcoholic hepatitis Should consider also other possibilities i.e. myeloproliferative disorder Chronic alcoholism Plan: Continue close observation PPI therapy plus Carafate Monitor H&H, transfuse as necessary If evidence of bleeding consider repeat endoscopy Consider hematology consultation given massive leukocytosis Restart steroids for alcoholic hepatitis . . Problems: Consultation Date/Type/Reason Admit Date/Time Jun 27, 2017 at 00:40 Date of Consultation: Jun 27, 2017 Type of Consultation: GI Reason for Consultation Hematemesis Hx of Present Illness 31-year-old male, well known to GI service. He was recently hospitalized at this institution with upper GI bleeding. Underwent endoscopic examination showed antral gastric ulceration with evidence of recent bleeding that received Endo Clip treatment. Esophageal varices that were graded as moderate and significant portal gastropathy. The patient also had evidence of severe alcoholic hepatitis and was treated with steroids. Upon discharge the patient apparently was able to fill prescription for PPI but was not able to continue steroids. Since his discharge he reports feeling weak and not able to eat. He presented to a [place] facility after an episode of hematemesis which is smaller amounts mostly vomiting with streaks of blood. He was transferred to [facility] given his previous hospitalization here and insurance coverage. Upon evaluation in the emergency room he has noticed a mild anemia in comparison to previous discharge hemoglobin. He appears comfortable, he is deeply jaundiced, he is alert and oriented 3. He has been hospitalized for further management and observation, he is placed in PPI therapy. Constitutional: other (Generalized weakness), poor po Eyes: no complaints ENT: no complaints Respiratory: no complaints Cardiovascular: no complaints Gastrointestinal: other (See HPI) Genitourinary: no complaints Musculoskeletal: no complaints Skin: no complaints Neurologic: no complaints Endocrine: no complaints Lymphatic: no complaints Psychological: nl mood/affect, no complaints Immunologic: no complaints Past Medical History Bleeding gastric ulcer post Endo Clip placement 06/19/2017 Moderate-sized esophageal varices with no stigmata of bleeding Severe portal hypertensive gastropathy Severe alcoholic hepatitis Chronic alcoholic liver disease Chronic alcoholism Past Surgical History Past Surgical Hx: no surgical history, other Family History Significant Family History: no pertinent family hx Social History Alcohol Use: other (Last drink approximately 3-4 weeks ago as per the patient) Smoking Status: Current every day smoker Drug Use: none Exam/Review of Systems Vital Signs Vitals Vital Signs Date Time Temp Pulse Resp B/P Pulse Ox O2 Delivery O2 Flow Rate FiO2 06/27/17 08:39 71 06/27/17 07:47 98.2 97/52 98 Intake and Output 06/26/17 06/26/17 06/27/17 15:00 23:00 07:00 Intake Total 295 ml Output Total 500 ml Balance -205 ml Exam PHYSICAL EXAMINATION: GENERAL: Well developed, well nourished, alert & oriented x 3, in no acute distress SKIN: Deeply jaundiced. Otherwise no lesions, positive stigmata chronic liver disease, no evidence of bleeding diathesis LYMPHATIC: No palpable lymphadenopathy. HEAD: Normocephalic, atraumatic, no tenderness. EYES: Pupils equal reactive to light and accommodation, full extraocular movements, sclera clear, non-icteric, no discharge. EARS/NOSE AND THROAT: Ears normal, nose normal, oropharynx normal, oral membranes well hydrated without lesions. NECK: Supple, no masses, thyroid normal, JVP within normal limits, carotids normal without bruits. CHEST: Inspection within normal limits. CARDIOVASCULAR: Heart: Regular rate and rhythm, no murmurs, gallops or rubs. Peripheral pulses present within normal limits, no cyanosis, clubbing or edemas. No pulsatile abdominal mass RESPIRATORY: Lungs clear to auscultation and percussion, no wheezing, no rubs GASTROINTESTINAL AND LIVER: Abdomen: Soft, non tenderness, non-distended, no hernias, no masses, no organomegaly, no ascites, no guarding, no rebound tenderness, normoactive bowel sounds. Rectal: Deferred. GENITOURINARY: [Male genitalia within normal limits.] EXTREMITIES: No cyanosis, clubbing or edema. [MUSCULO-SKELETAL: Gait and station within normal limits, range of motion adequate.] [NEUROLOGIC: Cranial nerves II-XII intact, Motor within normal limits, Sensory within normal limits. Reflexes within normal limits. PSYCHIATRIC: Alert & oriented x 3, mood/affect/judgement adequate] Results Result Diagram: 06/27/17 0656 06/27/17 0315 Results 24 hrs Laboratory Tests Test 06/27/17 03:10 06/27/17 03:15 06/27/17 06:56 06/27/17 08:11 Urine Color CONRADO Urine Clarity SLIGHTLY CLOUDY A Urine pH 6.0 Urine Specific [place] 1.021 Urine Ketones NEGATIVE Urine Nitrite NEGATIVE Urine Bilirubin 2+ H Urine Urobilinogen 2+ H Urine Leukocyte Esterase NEGATIVE Urine Microscopic RBC 0 Urine Microscopic WBC 2 Urine Squamous Epithelial Cells FEW Urine Bacteria FEW A Urine Mucus MODERATE Urine Hemoglobin NEGATIVE Urine Glucose NEGATIVE Urine Total Protein 1+ H White Blood Count 54.1 H 57.4 H Red Blood Count 2.87 L 3.07 L Hemoglobin 9.0 L 9.6 L Hematocrit 25.9 L 28.1 L Mean Corpuscular Volume 90.2 91.5 Mean Corpuscular Hemoglobin 31.4 31.3 Mean Corpuscular Hemoglobin Concent 34.7 34.2 Red Cell Distribution Width 25.3 H 25.8 H Platelet Count 209 232 Mean Platelet Volume 11.8 H 12.1 H Neutrophils % Lymphocytes % Monocytes % Eosinophils % Basophils % Nucleated Red Blood Cells % 0.0 0.0 Neutrophils # Lymphocytes # Monocytes # Eosinophils # Basophils # Nucleated Red Blood Cells # Sodium Level 142 Potassium Level 3.3 L Chloride Level 110 Carbon Dioxide Level 17 L Anion Gap 18 H Blood Urea Nitrogen 7 Creatinine 0.52 L Glucose Level 100 Calcium Level 8.0 L Magnesium Level 1.8 Total Bilirubin 18.3 H Direct Bilirubin 16.20 *H Indirect Bilirubin 2.1 H Aspartate Amino Transf (AST/SGOT) 39 Alanine Aminotransferase (ALT/SGPT) 39 Alkaline Phosphatase 262 H Total Protein 6.2 Albumin 2.4 L Globulin 3.80 H Albumin/Globulin Ratio 0.63 Activated Partial Thromboplast Time 57.7 H Medications Medications Current Medications Sodium Chloride (NS) 1,000 ml @ 70 mls/hr [id number] IV Last administered on 02:42; Admin Dose 70 MLS/HR; Start 06/27/17 at 02:09 Acetaminophen (Tylenol Supp) 650 mg Q6H PRN [place] PAIN LEVEL 1-3 OR FEVER; Start 06/27/17 at 02:30 Pantoprazole 40 mg 40 mg BID@18 IV Last administered on 11/18/17at 02:58; Admin Dose 40 MG; Start 06/27/17 at 02:45 Octreotide Acetate/Sodium Chloride (Sandostatin/NS) 51 ml @ 6.25 mls/hr Q8 IVPB ; Start 06/27/17 at 09:30 Methylprednisolone Sodium Succinate (Solu-Medrol) 40 mg DAILY IV ; Start at 09:00 Morphine Sulfate (morphine) 2 mg Q6H PRN IV PAIN; Start 06/27/17 at 15:30 IFTIKHAR GONZALEZ MD Jun 27, 2017 10:41
[2017-06-27] MEDS: morphine 2 MG INJ IV PRN ×2 (10:47→17:02)
--- NOTE | 2017-06-27 10:58 | RADRPT ---
PROCEDURE: XR Chest. CLINICAL INDICATION: Hematemesis. TECHNIQUE: Single frontal view of the chest was obtained. COMPARISON: 10/08/2016. FINDINGS: The cardiomediastinal silhouette is normal in size. There are shallow lung volumes with elevation of the hemidiaphragms with scattered air space opaciti es. No pleural effusion is seen. No definite pneumothorax. IMPRESSION: Shallow lung volumes with elevation of the hemidiaphragms with scattered air space opacities, which could reflect atelectasis however infection not excluded. Recommend follow-up radiographs. RPTAT: [facility] Christiana San Physician Date Time Electronically viewed and signed by Christiana San Physician on 06/27/2017 10:58 PH/
[2017-06-27] MEDS ORDERED: METHYLPREDNISOLONE 4 MG TAB PO SCH (11:00)
--- NOTE | 2017-06-27 11:44 | RADRPT ---
PROCEDURE: US Abdomen. CLINICAL INDICATION: assess for ascites TECHNIQUE: Multiple real-time images were acquired of the 4 quadrants patient's abdomen and retrop eritoneum utilizing a high resolution transducer. COMPARISON: None FINDINGS: There is a small volume of ascites in the right lower quadrant. IMPRESSION: Small volume ascites. .Bulmaro Rainey MD, MD Date Time Electronically viewed and signed by .Bulmaro Rainey MD, MD on 06/27/2017 11:44 .A/
[2017-06-27 12:39] LABS: ABNORMAL IP MESSAGE 1; HEMATOCRIT 29.6 % (42.0-52.0); HEMOGLOBIN 10.1 g/dl (14.0-18.0); MEAN CORPUSCULAR HEMOGLOBIN 31.1 pg (29.0-33.0); MEAN CORPUSCULAR HGB CONC 34.1 g/dl (32.0-37.0); MEAN CORPUSCULAR VOLUME 91.1 fl (82.0-101.0); MEAN PLATELET VOLUME 11.4 fl (7.4-10.4); PLATELET COUNT 221 10^3/UL (140-415); POSITIVE DIFF @See below; RED BLOOD COUNT 3.25 10^6/ul (4.70-6.10); RED CELL DISTRIBUTION WIDTH 25.8 % (11.5-14.5); WHITE BLOOD COUNT 57.2 10^3/ul (4.8-10.8)
[2017-06-27] MEDS: SUCRALFATE 1 GM TAB PO SCH ×4 (12:42→21:25)
[2017-06-27 13:08] LABS: ANISOCYTOSIS 2+ (0-0); BURR CELLS 2+ (0-0); EOSINOPHILS % (M) 3 % (0-7); HYPOCHROMASIA 1+ (0-0); METAMYELOCYTES %M 1 % (0-0); MONOCYTES % (M) 1 % (0-11); PLATELET ESTIMATE NORMAL; POIKILOCYTOSIS 2+ (0-0)
--- NOTE | 2017-06-27 16:24 | PN ---
Date/Time of Note Date/Time of Note DATE: 06/27/17 TIME: 16:19 Assessment/Plan VTE Prophylaxis VTE Prophylaxis Intervention: SCD's Lines/Catheters IV Catheter Type (from Nrs): Peripheral IV Urinary Cath still in place: No Assessment/Plan Assessment/Plan 31 yo M with EtOH cirrhosis discharged 3 days ago after a week long admit for abd pain found to have stomach ulcer on EGD who was supposed to go to rehab presents with hematesis which appears to have resolved. PLAN sp GI eval. no indication for repeat EGD as last was <2 weeks ago cont BID PPI cont home lactulose, lasix cont steroids for alcoholic hepatitis in setting of markedly elevated Mardreys discriminant function re pt's leukocytosis, seen by heme 3 mos ago. had extensive workup including BMB. Etio determined to be 2/2 underlying liver disease sw working on getting patient back into rehab will convert from IV to PO pain meds in AM to facilitate dispo Subjective 24 Hr Interval Summary Free Text/Dictation Pt denies further hematemesis. Willing to try to go to rehab. of note didnt get any of his discharge meds 2/2 logistical constraints Exam/Review of Systems Vital Signs Vitals Vital Signs Date Time Temp Pulse Resp B/P Pulse Ox O2 Delivery O2 Flow Rate FiO2 06/27/17 16:15 79 06/27/17 15:41 97.9 18 111/58 97 Intake and Output 06/26/17 06/26/17 06/27/17 14:59 22:59 06:59 Intake Total 295 ml Output Total 500 ml Balance -205 ml Exam nad no mrg lungs clear no rashes no edema wbcs and hgb unchanged from prior Results Result Diagram: 06/27/17 1213 06/27/17 0315 Results 24 hrs Laboratory Tests Test 06/27/17 03:10 06/27/17 03:15 06/27/17 06:56 06/27/17 08:11 Urine Color CONRADO Urine Clarity SLIGHTLY CLOUDY A Urine pH 6.0 Urine Specific [place] 1.021 Urine Ketones NEGATIVE Urine Nitrite NEGATIVE Urine Bilirubin 2+ H Urine Urobilinogen 2+ H Urine Leukocyte Esterase NEGATIVE Urine Microscopic RBC 0 Urine Microscopic WBC 2 Urine Squamous Epithelial Cells FEW Urine Bacteria FEW A Urine Mucus MODERATE Urine Hemoglobin NEGATIVE Urine Glucose NEGATIVE Urine Total Protein 1+ H White Blood Count 54.1 H 57.4 H Red Blood Count 2.87 L 3.07 L Hemoglobin 9.0 L 9.6 L Hematocrit 25.9 L 28.1 L Mean Corpuscular Volume 90.2 91.5 Mean Corpuscular Hemoglobin 31.4 31.3 Mean Corpuscular Hemoglobin Concent 34.7 34.2 Red Cell Distribution Width 25.3 H 25.8 H Platelet Count 209 232 Mean Platelet Volume 11.8 H 12.1 H Neutrophils % Lymphocytes % Monocytes % Eosinophils % Basophils % Nucleated Red Blood Cells % 0.0 0.0 Neutrophils # Lymphocytes # Monocytes # Eosinophils # Basophils # Nucleated Red Blood Cells # Sodium Level 142 Potassium Level 3.3 L Chloride Level 110 Carbon Dioxide Level 17 L Anion Gap 18 H Blood Urea Nitrogen 7 Creatinine 0.52 L Glucose Level 100 Calcium Level 8.0 L Magnesium Level 1.8 Total Bilirubin 18.3 H Direct Bilirubin 16.20 *H Indirect Bilirubin 2.1 H Aspartate Amino Transf (AST/SGOT) 39 Alanine Aminotransferase (ALT/SGPT) 39 Alkaline Phosphatase 262 H Total Protein 6.2 Albumin 2.4 L Globulin 3.80 H Albumin/Globulin Ratio 0.63 Activated Partial Thromboplast Time 57.7 H Test 06/27/17 12:13 White Blood Count 57.2 H Red Blood Count 3.25 L Hemoglobin 10.1 L Hematocrit 29.6 L Mean Corpuscular Volume 91.1 Mean Corpuscular Hemoglobin 31.1 Mean Corpuscular Hemoglobin Concent 34.1 Red Cell Distribution Width 25.8 H Platelet Count 221 Mean Platelet Volume 11.4 H Neutrophils % Segmented Neutrophils % (Manual) 61 Band Neutrophils % (Manual) 33 H Lymphocytes % Lymphocytes % (Manual) 1 L Monocytes % Monocytes % (Manual) 1 Eosinophils % Eosinophils % (Manual) 3 Basophils % Metamyelocytes % (manual) 1 H Nucleated Red Blood Cells % 0.0 Neutrophils # Neutrophils # (Manual) 45.6 H Band Neutrophils # 18.8 H Absolute Lymphocytes (Manual) 0.5 L Lymphocytes # Monocytes # Absolute Monocytes (Manual) 0.5 Eosinophils # Basophils # Metamyelocytes # 0.5 H Nucleated Red Blood Cells # Platelet Estimate NORMAL Hypochromasia 1+ Poikilocytosis 2+ Anisocytosis 2+ Medications Medications Current Medications Acetaminophen (Tylenol Supp) 650 mg Q6H PRN [place] PAIN LEVEL 1-3 OR FEVER; Start 06/27/17 at 02:30 Morphine Sulfate (morphine) 2 mg Q6H PRN IV PAIN Last administered on 10:47; Admin Dose 2 MG; Start 06/27/17 at 10:40 Methylprednisolone (Medrol) 32 mg DAILY PO Last administered on 06/27/17 12: 42; Admin Dose 32 MG; Start 06/27/17 at 11:00 Sucralfate (Carafate) 1 gm QID PO Last administered on 06/27/17 12:42; Admin Dose 1 GM; Start 06/27/17 at 11:00 SHIRA RAO MD Jun 27, 2017 16:24
[2017-06-27] MEDS: FUROSEMIDE 20 MG TAB PO SCH (16:59)
[2017-06-27] MEDS: THIAMINE 100 MG TAB PO SCH (16:59)
[2017-06-27] MEDS: LACTULOSE 30ML CUP PO SCH (16:59)
[2017-06-27] MEDS: MULTIVITAMINS THERAPEUTIC TAB PO SCH (17:00)
[2017-06-27] MEDS: PANTOPRAZOLE (EC) 40 MG TAB PO SCH (17:02)
[2017-06-27 17:58] LABS: ABNORMAL IP MESSAGE 1; HEMATOCRIT 29.6 % (42.0-52.0); HEMOGLOBIN 9.9 g/dl (14.0-18.0); MEAN CORPUSCULAR HEMOGLOBIN 30.8 pg (29.0-33.0); MEAN CORPUSCULAR HGB CONC 33.4 g/dl (32.0-37.0); MEAN CORPUSCULAR VOLUME 92.2 fl (82.0-101.0); MEAN PLATELET VOLUME 12.2 fl (7.4-10.4); PLATELET COUNT 234 10^3/UL (140-415); POSITIVE DIFF @See below; RED BLOOD COUNT 3.21 10^6/ul (4.70-6.10); RED CELL DISTRIBUTION WIDTH 25.2 % (11.5-14.5); WHITE BLOOD COUNT 63.2 10^3/ul (4.8-10.8)
[2017-06-27 18:29] LABS: ANISOCYTOSIS 2+ (0-0); EOSINOPHILS % (M) 1 % (0-7); MONOCYTES % (M) 3 % (0-11); PLATELET ESTIMATE NORMAL; POIKILOCYTOSIS 1+ (0-0); POLYCHROMASIA 1+ (0-0)
[2017-06-27] MEDS ORDERED: POTASSIUM CHLORIDE (SR) 20 MEQ TAB PO STA (18:56)
[2017-06-28] MEDS: morphine 2 MG INJ IV PRN ×2 (00:11→07:52)
[2017-06-28] MEDS: LACTULOSE 30ML CUP PO SCH ×4 (00:11→17:39)
[2017-06-28 02:40] VITALS: BP 124/65; RESP 18
[2017-06-28] MEDS ORDERED: morphine 2 MG INJ IV STA (02:42)
[2017-06-28] MEDS: PANTOPRAZOLE (EC) 40 MG TAB PO SCH ×2 (05:43→17:39)
[2017-06-28 06:03] LABS: ABNORMAL IP MESSAGE 1; HEMATOCRIT 27.4 % (42.0-52.0); HEMOGLOBIN 9.4 g/dl (14.0-18.0); MEAN CORPUSCULAR HEMOGLOBIN 31.3 pg (29.0-33.0); MEAN CORPUSCULAR HGB CONC 34.3 g/dl (32.0-37.0); MEAN CORPUSCULAR VOLUME 91.3 fl (82.0-101.0); MEAN PLATELET VOLUME 11.6 fl (7.4-10.4); PLATELET COUNT 234 10^3/UL (140-415); POSITIVE DIFF @See below; RED CELL DISTRIBUTION WIDTH 25.7 % (11.5-14.5); WHITE BLOOD COUNT 67.1 10^3/ul (4.8-10.8)
[2017-06-28] MEDS: SUCRALFATE 1 GM TAB PO SCH ×4 (07:52→20:54)
[2017-06-28] MEDS: MULTIVITAMINS THERAPEUTIC TAB PO SCH (07:52)
[2017-06-28] MEDS: THIAMINE 100 MG TAB PO SCH (07:52)
[2017-06-28] MEDS: FUROSEMIDE 20 MG TAB PO SCH (07:53)
[2017-06-28 08:24] VITALS: BP 113/69; RESP 18
[2017-06-28 08:42] LABS: ANISOCYTOSIS 2+ (0-0); BURR CELLS 2+ (0-0); EOSINOPHILS % (M) 1 % (0-7); MONOCYTES % (M) 6 % (0-11); OVALOCYTES 1+ (0-0); PLATELET ESTIMATE NORMAL; POIKILOCYTOSIS 3+ (0-0); POLYCHROMASIA 2+ (0-0)
--- NOTE | 2017-06-28 08:56 | PN ---
Date/Time of Note Date/Time of Note DATE: 06/28/17 TIME: 08:52 Assessment/Plan VTE Prophylaxis VTE Prophylaxis Intervention: ambulation Lines/Catheters [facility] Saline Lock Urinary Cath still in place: No Assessment/Plan Chief Complaint/Hosp Course Assessment: Episode of mild hematemesis/clinically insignificant so far History of bleeding gastric ulcer post Endo Clip placement History of moderate-sized esophageal varices History of severe portal hypertensive gastropathy History of severe alcoholic hepatitis with deep jaundice and severe leukocytosis Severe leukocytosis no evidence of septic foci May be related to alcoholic hepatitis Should consider also other possibilities i.e. myeloproliferative disorder Chronic alcoholism Plan: Continue close observation PPI therapy plus Carafate Monitor H&H, transfuse as necessary Patient appears stable from GI viewpoint outpatient follow-up on current regimen Consider hematology consultation given massive leukocytosis prior to discharge Continue steroids for alcoholic hepatitis . Subjective: Course reviewed with nursing staff Patient interviewed and examined All labs, imaging and other results reviewed The patient reports no further episodes of hematemesis or other evidence of overt GI bleeding Hemoglobin hematocrit remained stable I am concerned about significant leukocytosis in the 60,000 range which sometimes can be seen in alcoholic hepatitis but should be further evaluated by hematology There appears to be no evidence of sepsis Exam: General: well developed, well nourished, alert and oriented x3 , in no acute distress Skin: Deeply jaundiced. No lesions, positive stigmata chronic liver disease, no evidence of bleeding diathesis Lymphatic: No palpable lymphadenopathy HEENT: No lesions Cardiovascular: Heart: Regular rate and rhythm, no murmurs, gallops or rubs. Peripheral pulses present within normal limits, no cyanosis, clubbing or edemas. No pulsatile abdominal mass Respiratory: Lungs clear to auscultation and percussion, no wheezing, no rubs Gastrointestinal and Liver: Abdomen: Soft, non tenderness, not distended, no hernias, no masses, hepatomegaly, no ascites, no guarding, no rebound tenderness , normoactive bowel sounds. Extremities: No cyanosis, clubbing, or edema. [Neurologic: Cranial nerves II-XII intact, motor within normal limits, sensory within normal limits. Reflexes within normal limits.] [Psychiatric: Alert and oriented x3, mood/affect/judgment adequate] Diagnostic Studies: Available data and images were reviewed personally. See reports. Significant results and findings are addressed here or in the assessment and plan.. Problems: Exam/Review of Systems Vital Signs Vitals Vital Signs Date Time Temp Pulse Resp B/P Pulse Ox O2 Delivery O2 Flow Rate FiO2 06/28/17 08:24 97.7 76 18 113/69 98 Intake and Output 06/27/17 06/27/17 06/28/17 15:00 23:00 07:00 Intake Total 851 ml 1400 ml Balance 851 ml 1400 ml Results Result Diagram: 06/28/17 0459 06/27/17 0315 Results 24 hrs Laboratory Tests Test 06/27/17 12:13 06/27/17 17:33 06/28/17 04:59 White Blood Count 57.2 H 63.2 H 67.1 H Red Blood Count 3.25 L 3.21 L 3.00 L Hemoglobin 10.1 L 9.9 L 9.4 L Hematocrit 29.6 L 29.6 L 27.4 L Mean Corpuscular Volume 91.1 92.2 91.3 Mean Corpuscular Hemoglobin 31.1 30.8 31.3 Mean Corpuscular Hemoglobin Concent 34.1 33.4 34.3 Red Cell Distribution Width 25.8 H 25.2 H 25.7 H Platelet Count 221 234 234 Mean Platelet Volume 11.4 H 12.2 H 11.6 H Neutrophils % Segmented Neutrophils % (Manual) 61 80 H 79 H Band Neutrophils % (Manual) 33 H 5 H 12 H Lymphocytes % Lymphocytes % (Manual) 1 L 11 L 2 L Monocytes % Monocytes % (Manual) 1 3 6 Eosinophils % Eosinophils % (Manual) 3 1 1 Basophils % Metamyelocytes % (manual) 1 H Nucleated Red Blood Cells % 0.0 0.0 0.0 Neutrophils # Neutrophils # (Manual) 45.6 H 52.5 H 58.4 H Band Neutrophils # 18.8 H 3.1 H 8.0 H Absolute Lymphocytes (Manual) 0.5 L 6.9 H 1.3 Lymphocytes # Monocytes # Absolute Monocytes (Manual) 0.5 1.8 H 4.0 H Eosinophils # Basophils # Metamyelocytes # 0.5 H Nucleated Red Blood Cells # Platelet Estimate NORMAL NORMAL NORMAL Hypochromasia 1+ Poikilocytosis 2+ 1+ 3+ Anisocytosis 2+ 2+ 2+ Polychromasia 1+ 2+ Macrocytosis 1+ Ovalocytes 1+ Medications Medications Current Medications Acetaminophen (Tylenol Supp) 650 mg Q6H PRN [place] PAIN LEVEL 1-3 OR FEVER; Start 06/27/17 at 02:30 Morphine Sulfate (morphine) 2 mg Q6H PRN IV PAIN Last administered on 07:52; Admin Dose 2 MG; Start 06/27/17 at 10:40 Sucralfate (Carafate) 1 gm QID PO Last administered on 06/28/17 07:52; Admin Dose 1 GM; Start 06/27/17 at 11:00 Prednisolone (Prelone (Ped)) 40 mg DAILY PO ; Start 06/28/17 at 09:00 Folic Acid (Folic Acid) 1 mg DAILY PO ; Start 06/28/17 at 09:00 Furosemide (Lasix) 20 mg DAILY PO Last administered on 06/28/17 07:53; Admin Dose 20 MG; Start 06/27/17 at 16:30 Lactulose (Enulose) 30 gm Q6 PO Last administered on 06/28/17 05:43; Admin Dose 30 GM; Start 06/27/17 at 18:00 Multivitamins Therapeutic (Theragran) 1 tab DAILY PO Last administered on 06/28 07:52; Admin Dose 1 TAB; Start 06/27/17 at 16:30 Pantoprazole (Protonix Tab) 40 mg BID@18 PO Last administered on 06/28/17 05:43; Admin Dose 40 MG; Start 06/27/17 at 18:00 Thiamine HCl (Vitamin B1) 100 mg DAILY PO Last administered on 06/28/17 07:52 ; Admin Dose 100 MG; Start 06/27/17 at 16:30 IFTIKHAR GONZALEZ MD Jun 28, 2017 08:56
[2017-06-28] MEDS ORDERED: METHYLPREDNISOLONE 40 MG INJ IV SCH (09:00)
[2017-06-28] MEDS: FOLIC ACID 1 MG TAB PO SCH (09:55)
[2017-06-28] MEDS: predniSOLONE (3 MG/ML PO SYG) PO SCH (09:56)
[2017-06-28] MEDS: HYDROCODONE/APAP (5/325) TAB PO PRN ×2 (13:14→19:08)
--- NOTE | 2017-06-28 16:42 | PN ---
Date/Time of Note Date/Time of Note DATE: 06/28/17 TIME: 16:40 Assessment/Plan VTE Prophylaxis VTE Prophylaxis Intervention: SCD's Lines/Catheters IV Catheter Type (from Nrs): Saline Lock Urinary Cath still in place: No Assessment/Plan Assessment/Plan 31 yo M with EtOH cirrhosis discharged readmitted 3 days after a week long admit for abd pain 2/2 gastric ulcer for hematemesis PLAN sp GI eval. no indication for repeat EGD as last was <2 weeks ago cont BID PPI cont home lactulose, lasix cont steroids for alcoholic hepatitis in setting of markedly elevated Mardreys discriminant function re pt's leukocytosis, seen by heme 3 mos ago. had extensive workup including BMB. Etio determined to be 2/2 underlying liver disease steve to see again in AM sw working on getting patient back into rehab long talk with patient and his mom this AM. Pt asking if he can do outpatient therapy. dw pt and mom that given his MELD score 26, pt with 1/5 risk of dying within next 3 mos pain meds changed from IV to PO Subjective 24 Hr Interval Summary Free Text/Dictation mom wants to know if pt can stay here for a week. pt wondering if he can do outpatient etoh rehab Exam/Review of Systems Vital Signs Vitals Vital Signs Date Time Temp Pulse Resp B/P Pulse Ox O2 Delivery O2 Flow Rate FiO2 06/28/17 08:24 97.7 76 18 113/69 98 Intake and Output 06/27/17 06/27/17 06/28/17 15:00 23:00 07:00 Intake Total 851 ml 1400 ml Balance 851 ml 1400 ml Exam nad jaundiced no mrg lungs clear abd soft Results Result Diagram: 06/28/17 0459 06/27/17 0315 Results 24 hrs Laboratory Tests Test 06/27/17 17:33 06/28/17 04:59 White Blood Count 63.2 H 67.1 H Red Blood Count 3.21 L 3.00 L Hemoglobin 9.9 L 9.4 L Hematocrit 29.6 L 27.4 L Mean Corpuscular Volume 92.2 91.3 Mean Corpuscular Hemoglobin 30.8 31.3 Mean Corpuscular Hemoglobin Concent 33.4 34.3 Red Cell Distribution Width 25.2 H 25.7 H Platelet Count 234 234 Mean Platelet Volume 12.2 H 11.6 H Neutrophils % Segmented Neutrophils % (Manual) 80 H 79 H Band Neutrophils % (Manual) 5 H 12 H Lymphocytes % Lymphocytes % (Manual) 11 L 2 L Monocytes % Monocytes % (Manual) 3 6 Eosinophils % Eosinophils % (Manual) 1 1 Basophils % Nucleated Red Blood Cells % 0.0 0.0 Neutrophils # Neutrophils # (Manual) 52.5 H 58.4 H Band Neutrophils # 3.1 H 8.0 H Absolute Lymphocytes (Manual) 6.9 H 1.3 Lymphocytes # Monocytes # Absolute Monocytes (Manual) 1.8 H 4.0 H Eosinophils # Basophils # Nucleated Red Blood Cells # Platelet Estimate NORMAL NORMAL Polychromasia 1+ 2+ Poikilocytosis 1+ 3+ Anisocytosis 2+ 2+ Macrocytosis 1+ Ovalocytes 1+ Medications Medications Current Medications Acetaminophen (Tylenol Supp) 650 mg Q6H PRN [place] PAIN LEVEL 1-3 OR FEVER; Start 06/27/17 at 02:30 Sucralfate (Carafate) 1 gm QID PO Last administered on 06/28/17 13:14; Admin Dose 1 GM; Start 06/27/17 at 11:00 Prednisolone (Prelone (Ped)) 40 mg DAILY PO Last administered on 06/28/17 09: 56; Admin Dose 40 MG; Start 06/28/17 at 09:00 Folic Acid (Folic Acid) 1 mg DAILY PO Last administered on 06/28/17 09:55; Admin Dose 1 MG; Start 06/28/17 at 09:00 Furosemide (Lasix) 20 mg DAILY PO Last administered on 06/28/17 07:53; Admin Dose 20 MG; Start 06/27/17 at 16:30 Lactulose (Enulose) 30 gm Q6 PO Last administered on 06/28/17 13:13; Admin Dose 20 GM; Start 06/27/17 at 18:00 Multivitamins Therapeutic (Theragran) 1 tab DAILY PO Last administered on 06/28 07:52; Admin Dose 1 TAB; Start 06/27/17 at 16:30 Pantoprazole (Protonix Tab) 40 mg BID@,18 PO Last administered on 06/28/17 05:43; Admin Dose 40 MG; Start 06/27/17 at 18:00 Thiamine HCl (Vitamin B1) 100 mg DAILY PO Last administered on 06/28/17 07:52 ; Admin Dose 100 MG; Start 06/27/17 at 16:30 Acetaminophen/ Hydrocodone Bitart ([place] (5/325)) 1 tab Q6H PRN PO pain Last administered on 06/28/17 13:14; Admin Dose 1 TAB; Start 06/28/17 at 10:30 SHIRA RAO MD Jun 28, 2017 16:42
--- NOTE | 2017-06-28 18:59 | CONS ---
Date/Time of Note Date/Time of Note DATE: 06/28/17 TIME: 18:39 Assessment/Plan Assessment/Plan Chief Complaint/Hosp Course Patient with severe alcoholic hepatitis and pancreatitis now on steroids who presents with chronic leukocytosis #Leukocytosis - PT does not appear actively infected. pt has been admitted multiple times for alcoholic hepatitis and has presented with severe leukocytosis during those time. His current leukocytosis is likely secondary to the steroids and alcoholic hepatitis. Peripheral smear was reviewed in the past and did not show evidence of acute leukemia or obvious myeloproliferative disorder. Flow cytometry does not show evidence of hematologic malignancy. There is evidence of a left shifted myeloid maturation and no abnormal B cell population. JABARI 2 and BCR ABL are both negative -given the marked increase in WBC count will consider bone marrow bx #Alcoholic Hepatitis -pt has a MELD score 26, pt with 1/5 risk of dying within next 3 mos -continue supportive care per primary team Problems: Consultation Date/Type/Reason Admit Date/Time Jun 27, 2017 at 00:40 Date of Consultation: Jun 28, 2017 Type of Consultation: hematology Reason for Consultation leukocytosis Referring Provider: SHIRA RAO MD Hx of Present Illness Mr Oates is a 32year-old male, well known to me, with ETOH cirrhosis who was transferred form [place] after 1 episode if hematemesis who presents with hyperbilirubinemia, jaundice and abdominal pain. He is currently being treated for EtOH hepatitis. Pt has been admitted multiple times in the past with similar complaints. He has had a persistent leukocytosis at least since 01/3027 when his WBC count was in the 30's. It has worsened over the past month and his WBC count has now risen to the 60's. In the past he had evaluation of the peripheral blood with flow cytometry , JABARI 2 mutation and analysis ad BCR ABL testing all of which were negative making an underlying myeloproliferative disorder un likely. Given the increase in WBC count we have been consulted again for further workup. Of note patient is currently on steroids for his EtOH hepatitis. Pt has been seen by GI who has treated the patient in the past for a bleeding gastric ulcer js Endo Clip placement. Recent scope revealed, moderate-sized esophageal varices, and portal hypertensive gastropathy. Constitutional: other (Generalized weakness), poor po Eyes: no complaints ENT: no complaints Respiratory: no complaints Cardiovascular: no complaints Gastrointestinal: other (See HPI) Genitourinary: no complaints Musculoskeletal: no complaints Skin: no complaints Neurologic: no complaints Endocrine: no complaints Lymphatic: no complaints Psychological: nl mood/affect, no complaints Immunologic: no complaints Past Medical History ETOH cirrhosis leukocytosis Past Surgical History Past Surgical Hx: no surgical history, other Family History Significant Family History: no pertinent family hx Social History Alcohol Use: other (Last drink approximately 3-4 weeks ago as per the patient) Smoking Status: Current every day smoker Drug Use: none Exam/Review of Systems Vital Signs Vitals Vital Signs Date Time Temp Pulse Resp B/P Pulse Ox O2 Delivery O2 Flow Rate FiO2 06/28/17 08:24 97.7 76 18 113/69 98 Intake and Output 06/27/17 06/27/17 06/28/17 14:59 22:59 06:59 Intake Total 851 ml 1400 ml Balance 851 ml 1400 ml Exam Constitutional: alert, oriented Psych: no complaints Head: normocephalic Results Result Diagram: 06/28/17 0459 06/27/17 0315 Results 24 hrs Laboratory Tests Test 06/28/17 04:59 White Blood Count 67.1 H Red Blood Count 3.00 L Hemoglobin 9.4 L Hematocrit 27.4 L Mean Corpuscular Volume 91.3 Mean Corpuscular Hemoglobin 31.3 Mean Corpuscular Hemoglobin Concent 34.3 Red Cell Distribution Width 25.7 H Platelet Count 234 Mean Platelet Volume 11.6 H Neutrophils % Segmented Neutrophils % (Manual) 79 H Band Neutrophils % (Manual) 12 H Lymphocytes % Lymphocytes % (Manual) 2 L Monocytes % Monocytes % (Manual) 6 Eosinophils % Eosinophils % (Manual) 1 Basophils % Nucleated Red Blood Cells % 0.0 Neutrophils # Neutrophils # (Manual) 58.4 H Band Neutrophils # 8.0 H Absolute Lymphocytes (Manual) 1.3 Lymphocytes # Monocytes # Absolute Monocytes (Manual) 4.0 H Eosinophils # Basophils # Nucleated Red Blood Cells # Platelet Estimate NORMAL Polychromasia 2+ Poikilocytosis 3+ Anisocytosis 2+ Ovalocytes 1+ Medications Medications Current Medications Acetaminophen (Tylenol Supp) 650 mg Q6H PRN [place] PAIN LEVEL 1-3 OR FEVER; Start 06/27/17 at 02:30 Sucralfate (Carafate) 1 gm QID PO Last administered on 06/28/17t 17:39; Admin Dose 1 GM; Start 06/27/17 at 11:00 Prednisolone (Prelone (Ped)) 40 mg DAILY PO Last administered on 06/28/17 09: 56; Admin Dose 40 MG; Start 06/28/17 at 09:00 Folic Acid (Folic Acid) 1 mg DAILY PO Last administered on 06/28/17 09:55; Admin Dose 1 MG; Start 06/28/17 at 09:00 Furosemide (Lasix) 20 mg DAILY PO Last administered on 06/28/17 07:53; Admin Dose 20 MG; Start 06/27/17 at 16:30 Lactulose (Enulose) 30 gm Q6 PO Last administered on 06/28/17 17:39; Admin Dose 30 GM; Start 06/27/17 at 18:00 Multivitamins Therapeutic (Theragran) 1 tab DAILY PO Last administered on 06/28 07:52; Admin Dose 1 TAB; Start 06/27/17 at 16:30 Pantoprazole (Protonix Tab) 40 mg BID@,18 PO Last administered on 06/28/17 17:39; Admin Dose 40 MG; Start 06/27/17 at 18:00 Thiamine HCl (Vitamin B1) 100 mg DAILY PO Last administered on 06/28/17 07:52 ; Admin Dose 100 MG; Start 06/27/17 at 16:30 Acetaminophen/ Hydrocodone Bitart ([place] (5/325)) 1 tab Q6H PRN PO pain Last administered on 06/28/17 13:14; Admin Dose 1 TAB; Start 06/28/17 at 10:30 HARSHIL ALMONTE M.D. Jun 28, 2017 18:51
[2017-06-28 20:37] VITALS: BP 117/64; RESP 18
[2017-06-29] MEDS: LACTULOSE 30ML CUP PO SCH ×4 (00:39→17:02)
[2017-06-29] MEDS: HYDROCODONE/APAP (5/325) TAB PO PRN ×2 (01:08→08:55)
[2017-06-29 01:51] VITALS: BP 114/59; RESP 18
[2017-06-29] MEDS: PANTOPRAZOLE (EC) 40 MG TAB PO SCH ×2 (05:20→18:03)
[2017-06-29 07:48] VITALS: BP 114/56; RESP 20
[2017-06-29] MEDS: predniSOLONE (3 MG/ML PO SYG) PO SCH (08:52)
[2017-06-29] MEDS: FOLIC ACID 1 MG TAB PO SCH (08:53)
[2017-06-29] MEDS: SUCRALFATE 1 GM TAB PO SCH ×4 (08:53→20:46)
[2017-06-29] MEDS: MULTIVITAMINS THERAPEUTIC TAB PO SCH (08:54)
[2017-06-29] MEDS: FUROSEMIDE 20 MG TAB PO SCH (08:54)
[2017-06-29] MEDS: THIAMINE 100 MG TAB PO SCH (08:55)
[2017-06-29 11:01] LABS: INR 2.5; PROTIME 27.3 Sec (12.2-14.2); PT RATIO 2.1
--- NOTE | 2017-06-29 12:57 | PN ---
Date/Time of Note Date/Time of Note DATE: 06/29/17 TIME: 12:45 Assessment/Plan VTE Prophylaxis VTE Prophylaxis Intervention: SCD's Lines/Catheters IV Catheter Type (from Nrs): Saline Lock Urinary Cath still in place: No Assessment/Plan Chief Complaint/Hosp Course Assessment/Plan: 31 yo M with EtOH cirrhosis discharged readmitted 3 days after a week long admit for abd pain 2/2 gastric ulcer for hematemesis 1. abd pain - Hx of gastric ulcer, sp GI eval. no indication for repeat EGD as last was <2 weeks ago cont BID PPI cont home lactulose, lasix 2. ETOH hepatitis - cont steroids for alcoholic hepatitis in setting of markedly elevated Mardreys discriminant function - f/u GI rec's 3. elevated WBC's - Etio likely to be 2/2 underlying liver disease, steroids heme to see again in AM, considering BM biopsy 4. Dispo: sw working on getting patient back into rehab Hospitalist yesterday had long talk with patient and his mom. Pt asking if he can do outpatient therapy. dw pt and mom that given his MELD score 26, pt with 1/5 risk of dying within next 3 mos Problems: Subjective 24 Hr Interval Summary Free Text/Dictation Patient no acute events overnight. Exam/Review of Systems Vital Signs Vitals Vital Signs Date Time Temp Pulse Resp B/P Pulse Ox O2 Delivery O2 Flow Rate FiO2 06/29/17 07:48 97.8 70 20 114/56 98 Intake and Output 06/28/17 06/28/17 06/29/17 14:59 22:59 06:59 Intake Total 1540 ml Balance 1540 ml Exam nad, lying in bed, jaundiced supple S1, S2, mrg lungs clear abd soft no LE edema B/L Results Result Diagram: 06/28/17 0459 06/27/17 0315 Results 24 hrs Laboratory Tests Test 06/29/17 10:08 Prothrombin Time 27.3 H Prothrombin Time Ratio 2.1 INR International Normalized Ratio 2.50 Medications Medications Current Medications Acetaminophen (Tylenol Supp) 650 mg Q6H PRN [place] PAIN LEVEL 1-3 OR FEVER; Start 06/27/17 at 02:30 Sucralfate (Carafate) 1 gm QID PO Last administered on 06/29/17t 08:53; Admin Dose 1 GM; Start 06/27/17 at 11:00 Prednisolone (Prelone (Ped)) 40 mg DAILY PO Last administered on 06/29/17 08: 52; Admin Dose 40 MG; Start 06/28/17 at 09:00 Folic Acid (Folic Acid) 1 mg DAILY PO Last administered on 06/29/17 08:53; Admin Dose 1 MG; Start 06/28/17 at 09:00 Furosemide (Lasix) 20 mg DAILY PO Last administered on 06/29/17 08:54; Admin Dose 20 MG; Start 06/27/17 at 16:30 Lactulose (Enulose) 30 gm Q6 PO Last administered on 06/29/17 11:49; Admin Dose 30 GM; Start 06/27/17 at 18:00 Multivitamins Therapeutic (Theragran) 1 tab DAILY PO Last administered on 06/29 08:54; Admin Dose 1 TAB; Start 06/27/17 at 16:30 Pantoprazole (Protonix Tab) 40 mg BID@06,18 PO Last administered on 06/29/17 05:20; Admin Dose 40 MG; Start 06/27/17 at 18:00 Thiamine HCl (Vitamin B1) 100 mg DAILY PO Last administered on 06/29/17 08:55 ; Admin Dose 100 MG; Start 06/27/17 at 16:30 Acetaminophen/ Hydrocodone Bitart ([place] (5/325)) 1 tab Q6H PRN PO pain Last administered on 06/29/17 08:55; Admin Dose 1 TAB; Start 06/28/17 at 10:30 HEATHER GORDON 20, 2017 12:56
[2017-06-29 13:38] VITALS: BP 118/63; RESP 20
[2017-06-29] MEDS: HYDROCODONE/APAP (7.5/325) TAB PO PRN (14:24)
[2017-06-29] MEDS ORDERED: PHYTONADIONE 10 MG in DEXTROSE 5% 50 ML IVPB ONE (16:30)
[2017-06-29 20:19] VITALS: BP 108/72; RESP 20
[2017-06-29] MEDS: morphine 2 MG INJ IV PRN (21:55)
[2017-06-30] VITALS (13 sets, daily range): BP systolic 99–118; BP diastolic 50–63; PULSE 82–90; RESP 17–20
[2017-06-30] MEDS: LACTULOSE 30ML CUP PO SCH ×4 (01:22→17:20)
[2017-06-30] MEDS: morphine 2 MG INJ IV PRN ×5 (02:03→20:38)
[2017-06-30] MEDS: PANTOPRAZOLE (EC) 40 MG TAB PO SCH ×2 (05:07→17:17)
[2017-06-30] MEDS: FUROSEMIDE 20 MG TAB PO SCH (09:00)
[2017-06-30] MEDS: FOLIC ACID 1 MG TAB PO SCH (09:00)
[2017-06-30] MEDS: SUCRALFATE 1 GM TAB PO SCH ×4 (09:00→20:38)
[2017-06-30] MEDS: MULTIVITAMINS THERAPEUTIC TAB PO SCH (09:00)
[2017-06-30] MEDS: THIAMINE 100 MG TAB PO SCH (09:00)
[2017-06-30] MEDS: predniSOLONE (3 MG/ML PO SYG) PO SCH (09:00)
[2017-06-30 10:18] LABS: INR 1.68; PROTIME 19.9 Sec (12.2-14.2); PT RATIO 1.6
[2017-06-30] MEDS: ONDANSETRON 4 MG INJ IV PRN (11:10)
--- NOTE | 2017-06-30 12:29 | PN ---
Date/Time of Note Date/Time of Note DATE: 06/30/17 TIME: 12:25 Assessment/Plan VTE Prophylaxis VTE Prophylaxis Intervention: SCD's Lines/Catheters IV Catheter Type (from Nrs): Saline Lock Urinary Cath still in place: No Assessment/Plan Chief Complaint/Hosp Course Assessment/Plan: 31 yo M with EtOH cirrhosis discharged recently after being treated for alcoholic hepatitis, readmitted 3 days later for abd pain 2/2 gastric ulcer for hematemesis 1. abd pain - Hx of gastric ulcer, sp GI eval. no indication for repeat EGD as last was <2 weeks ago cont BID PPI cont home lactulose, lasix 2. ETOH hepatitis -still present with jaundice and elevated LFTs - cont steroids -prednisolone, for alcoholic hepatitis in setting of markedly elevated Mardreys discriminant function - f/u GI rec's 3. elevated WBC's - Etio likely to be 2/2 underlying liver disease, steroids, heme Onc on the case heme onc, per discussion with them today, workup for leukemia or infectious source has been negative thus far. -Awaiting BM biopsy for later today after getting FFP and vitamin K last night secondary to elevated INR which is improved at this morning -follow-up results of this. 4. Dispo: sw working on getting patient back into rehab, although overall poor prognosis for patient given advanced alcoholic liver disease. Problems: Subjective 24 Hr Interval Summary Free Text/Dictation Patient seen by hematology oncology team yesterday, received vitamin K and FFP this morning as well. Awaiting bone marrow biopsy later today. Otherwise no acute events overnight. Exam/Review of Systems Vital Signs Vitals Vital Signs Date Time Temp Pulse Resp B/P Pulse Ox O2 Delivery O2 Flow Rate FiO2 06/30/17 07:47 98.1 87 18 113/55 98 Intake and Output 06/29/17 06/29/17 06/30/17 14:59 22:59 06:59 Intake Total 51 ml Balance 51 ml Exam nad, lying in bed, jaundiced supple S1, S2, mrg lungs clear abd soft no LE edema B/L Results Result Diagram: 06/28/17 0459 06/27/17 0315 Results 24 hrs Laboratory Tests Test 06/30/17 09:36 Prothrombin Time 19.9 #H Prothrombin Time Ratio 1.6 INR International Normalized Ratio 1.68 Medications Medications Current Medications Acetaminophen (Tylenol Supp) 650 mg Q6H PRN [place] PAIN LEVEL 1-3 OR FEVER; Start 06/27/17 at 02:30 Sucralfate (Carafate) 1 gm QID PO Last administered on 06/29/17 20:46; Admin Dose 1 GM; Start 06/27/17 at 11:00 Prednisolone (Prelone (Ped)) 40 mg DAILY PO Last administered on 06/29/17 08: 52; Admin Dose 40 MG; Start 06/28/17 at 09:00 Folic Acid (Folic Acid) 1 mg DAILY PO Last administered on 06/29/17 08:53; Admin Dose 1 MG; Start 06/28/17 at 09:00 Furosemide (Lasix) 20 mg DAILY PO Last administered on 06/29/17 08:54; Admin Dose 20 MG; Start 06/27/17 at 16:30 Lactulose (Enulose) 30 gm Q6 PO Last administered on 06/30/17 01:22; Admin Dose 30 GM; Start 06/27/17 at 18:00 Multivitamins Therapeutic (Theragran) 1 tab DAILY PO Last administered on 06/29 08:54; Admin Dose 1 TAB; Start 06/27/17 at 16:30 Pantoprazole (Protonix Tab) 40 mg BID@18 PO Last administered on 06/29/17 18:03; Admin Dose 40 MG; Start 06/27/17 at 18:00 Thiamine HCl (Vitamin B1) 100 mg DAILY PO Last administered on 06/29/17 08:55 ; Admin Dose 100 MG; Start 06/27/17 at 16:30 Acetaminophen/ Hydrocodone Bitart ([place] (7.5-325)) 1 tab Q6H PRN PO PAIN Last administered on 06/29/17 14:24; Admin Dose 1 TAB; Start 06/29/17 at 14:00 Ondansetron HCl (Zofran Inj) 4 mg Q6H PRN IV NAUSEA AND/OR VOMITING Last administered on 06/30/17 11:10; Admin Dose 4 MG; Start 06/30/17 at 11:04 Morphine Sulfate (morphine) 1 mg Q6H PRN IV pain; Start 06/30/17 at 15:00; Status HEATHER SÁNCHEZ S. Jun 30, 2017 12:29
--- NOTE | 2017-06-30 13:52 | PN ---
Date/Time of Note Date/Time of Note DATE: 06/30/17 TIME: 13:49 Assessment/Plan VTE Prophylaxis VTE Prophylaxis Intervention: SCD's Lines/Catheters IV C[facility]ter [facility] (from [facility] Saline [facility] Urinary Cath still in place: No Assessment/Plan Chief Complaint/Hosp Course Chief Complaint/Hosp Course Assessment: Episode of mild hematemesis/clinically insignificant so far History of bleeding gastric ulcer post Endo Clip placement History of moderate-sized esophageal varices History of severe portal hypertensive gastropathy History of severe alcoholic hepatitis with deep jaundice and severe leukocytosis Severe leukocytosis no evidence of septic foci May be related to alcoholic hepatitis Should consider also other possibilities i.e. myeloproliferative disorder Chronic alcoholism Plan: Continue close observation PPI therapy plus Carafate Monitor H&H, transfuse as needed Patient appears stable from GI viewpoint outpatient follow-up on current regimen Consider hematology consultation given massive leukocytosis prior to discharge Continue steroids for alcoholic hepatitis Pt seen in collaboration with Dr. Ospina . Subjective: Course reviewed with nursing staff Patient interviewed and examined All labs, imaging and other results reviewed The patient reports no further episodes of hematemesis or other evidence of overt GI bleeding Hemoglobin hematocrit remained stable, plan for bone marrow biopsy today. Exam: General: well developed, well nourished, alert and oriented x3 , in no acute distress Skin: Deeply jaundiced. No lesions, positive stigmata chronic liver disease, no evidence of bleeding diathesis Lymphatic: No palpable lymphadenopathy HEENT: No lesions Cardiovascular: Heart: Regular rate and rhythm, Respiratory: Lungs clear to auscultation and percussion, no wheezing, no rubs Gastrointestinal and Liver: Abdomen: Soft, non tenderness, not distended, no hernias, no masses, ascites, no guarding, no rebound tenderness, normoactive bowel sounds. Extremities: BLE edema, improved Psychiatric: Alert and oriented x3, mood/affect/judgment adequate Diagnostic Studies: Available data and images were reviewed personally. See reports. Significant results and findings are addressed here or in the assessment and plan.. Problems: Exam/Review of Systems Vital Signs Vitals Vital Signs Date Time Temp Pulse Resp B/P Pulse Ox O2 Delivery O2 Flow Rate FiO2 06/30/17 07:47 98.1 87 18 113/55 98 Intake and Output 06/29/17 06/29/17 06/30/17 15:00 23:00 07:00 Intake Total 51 ml Balance 51 ml Results Result Diagram: 06/28/17 0459 06/27/17 0315 Results 24 hrs Laboratory Tests Test 06/30/17 09:36 Prothrombin Time 19.9 #H Prothrombin Time Ratio 1.6 INR International Normalized Ratio 1.68 Medications Medications Current Medications Acetaminophen (Tylenol Supp) 650 mg Q6H PRN [place] PAIN LEVEL 1-3 OR FEVER; Start 06/27/17 at 02:30 Sucralfate (Carafate) 1 gm QID PO Last administered on 06/29/17 20:46; Admin Dose 1 GM; Start 06/27/17 at 11:00 Prednisolone (Prelone (Ped)) 40 mg DAILY PO Last administered on 06/29/17 08: 52; Admin Dose 40 MG; Start 06/28/17 at 09:00 Folic Acid (Folic Acid) 1 mg DAILY PO Last administered on 06/29/17 08:53; Admin Dose 1 MG; Start 06/28/17 at 09:00 Furosemide (Lasix) 20 mg DAILY PO Last administered on 06/29/17 08:54; Admin Dose 20 MG; Start 06/27/17 at 16:30 Lactulose (Enulose) 30 gm Q6 PO Last administered on 06/30/17 01:22; Admin Dose 30 GM; Start 06/27/17 at 18:00 Multivitamins Therapeutic (Theragran) 1 tab DAILY PO Last administered on 06/29 08:54; Admin Dose 1 TAB; Start 06/27/17 at 16:30 Pantoprazole (Protonix Tab) 40 mg BID@,18 PO Last administered on 06/29/17 18:03; Admin Dose 40 MG; Start 06/27/17 at 18:00 Thiamine HCl (Vitamin B1) 100 mg DAILY PO Last administered on 06/29/17 08:55 ; Admin Dose 100 MG; Start 06/27/17 at 16:30 Acetaminophen/ Hydrocodone Bitart ([place] (7.5-325)) 1 tab Q6H PRN PO PAIN Last administered on 06/29/17 14:24; Admin Dose 1 TAB; Start 06/29/17 at 14:00 Ondansetron HCl (Zofran Inj) 4 mg Q6H PRN IV NAUSEA AND/OR VOMITING Last administered on 11/21/17at 11:10; Admin Dose 4 MG; Start 06/30/17 at 11:04 Morphine Sulfate (morphine) 1 mg Q6H PRN IV pain; Start 06/30/17 at 15:00 LESLI SOLOMON Jun 30, 2017 13:52
[2017-06-30] MEDS ORDERED: LIDOCAINE 1% (MDV) 20 ML INJ ONE (14:49)
[2017-06-30] MEDS ORDERED: DIPHENHYDRAMINE 50 MG INJ ONE (15:13)
[2017-06-30] MEDS ORDERED: FENTAnyl 50 MCG/ML VIAL ONE (15:13)
--- NOTE | 2017-06-30 16:35 | RADRPT ---
PROCEDURE: CT guided bone marrow aspiration and left iliac bone biopsy. CLINICAL INDICATION: History of pancytopenia. TECHNIQUE: Informed consent was obtained. The procedure, risks, benefits, complications and alternatives were e xplained to the patient. Risks including bleeding and infection were explained. The patient understo od and was willing to proceed. A procedural pause was performed. The patient's name, date of , and procedure to be performed were verified. One or more of the following dose reduction techni ques were used: Automated exposure control, adjustment of the mA and/or kV according to patient size , use of iterative reconstruction technique. DICOM images are available. Using local anesthetic, sterile technique and CT guidance, an 11-gauge On Control bone biopsy needle was advanced into the left iliac bone via a posterior approach. Bone marrow aspiration was perform ed yielding approximately 10 ml. The bone biopsy needle was then advanced an additional 4 cm using the power drill device and tissue was obtained. Adequate tissue was obtained according to the patho logist present during the procedure. The needle was removed. A postprocedural scan was performed. A dressing was applied. The patient tolerated procedure well. COMPARISON: None. FINDINGS: Initial images demonstrate the tip of the needle at the posterior margin of the left iliac bone. Green bsequent images demonstrate the needle within the bone. Post biopsy images demonstrate no immediate complication. IMPRESSION: 1. Successful CT guided bone marrow aspiration and biopsy. RPTAT: QQ .Aki Estrada MD, MD Date Time Electronically viewed and signed by .Aki Estrada MD, MD on 06/30/2017 15:48 .R/
[2017-06-30] MEDS: HYDROCODONE/APAP (7.5/325) TAB PO PRN (17:46)
--- NOTE | 2017-06-30 20:37 | CONS ---
Date/Time of Note Date/Time of Note DATE: 06/30/17 TIME: 20:35 Assessment/Plan Assessment/Plan Chief Complaint/Hosp Course Patient with severe alcoholic hepatitis and pancreatitis now on steroids who presents with chronic leukocytosis #Leukocytosis - PT does not appear actively infected. pt has been admitted multiple times for alcoholic hepatitis and has presented with severe leukocytosis during those time. His current leukocytosis is likely secondary to the steroids and alcoholic hepatitis. Peripheral smear was reviewed in the past and did not show evidence of acute leukemia or obvious myeloproliferative disorder. Flow cytometry does not show evidence of hematologic malignancy. There is evidence of a left shifted myeloid maturation and no abnormal B cell population. JABARI 2 and BCR ABL are both negative -given the marked increase in WBC count bone marrow bx was done to ensure no evidence of bone marrow dyscrasia -will follow up #Alcoholic Hepatitis -pt has a MELD score 26, pt with 1/5 risk of dying within next 3 mos -continue supportive care per primary team -pt will likely need a liver transplant Problems: Consultation Date/Type/Reason Admit Date/Time Jun 27, 2017 at 00:40 Initial Consult Date 06/28/17 Type of Consultation: hematology Reason for Consultation leukocytosis Referring Provider: SHIRA RAO MD 24 HR Interval Summary Free Text/Dictation pt underwent bone marrow bx today Exam/Review of Systems Vital Signs Vitals Vital Signs Date Time Temp Pulse Resp B/P Pulse Ox O2 Delivery O2 Flow Rate FiO2 06/30/17 14:10 98.9 84 20 116/56 100 06/30/17 13:00 Room Air Intake and Output 06/29/17 06/29/17 06/30/17 14:59 22:59 06:59 Intake Total 51 ml Balance 51 ml Exam Constitutional: alert, oriented Psych: no complaints Head: normocephalic Eyes: icteric ENMT: nl external ears & nose Neck: non-tender, supple Respiratory: clear to auscultation Cardiovascular: regular rate and rhythm Gastrointestinal: soft Musculoskeletal: nl extremities to inspection Results Result Diagram: 06/28/17 0459 06/27/17 0315 Results 24 hrs Laboratory Tests Test 06/30/17 09:36 Prothrombin Time 19.9 #H Prothrombin Time Ratio 1.6 INR International Normalized Ratio 1.68 Medications Medications Current Medications Acetaminophen (Tylenol Supp) 650 mg Q6H PRN [place] PAIN LEVEL 1-3 OR FEVER; Start 06/27/17 at 02:30 Sucralfate (Carafate) 1 gm QID PO Last administered on 06/30/17 17:17; Admin Dose 1 GM; Start 06/27/17 at 11:00 Prednisolone (Prelone (Ped)) 40 mg DAILY PO Last administered on 06/29/17 08: 52; Admin Dose 40 MG; Start 06/28/17 at 09:00 Folic Acid (Folic Acid) 1 mg DAILY PO Last administered on 06/29/17 08:53; Admin Dose 1 MG; Start 06/28/17 at 09:00 Furosemide (Lasix) 20 mg DAILY PO Last administered on 06/29/17 08:54; Admin Dose 20 MG; Start 06/27/17 at 16:30 Lactulose (Enulose) 30 gm Q6 PO Last administered on 06/30/17 17:20; Admin Dose 30 GM; Start 06/27/17 at 18:00 Multivitamins Therapeutic (Theragran) 1 tab DAILY PO Last administered on 06/29 08:54; Admin Dose 1 TAB; Start 06/27/17 at 16:30 Pantoprazole (Protonix Tab) 40 mg BID@06,18 PO Last administered on 06/30/17 17:17; Admin Dose 40 MG; Start 06/27/17 at 18:00 Thiamine HCl (Vitamin B1) 100 mg DAILY PO Last administered on 06/29/17 08:55 ; Admin Dose 100 MG; Start 06/27/17 at 16:30 Acetaminophen/ Hydrocodone Bitart ([place] (7.5-325)) 1 tab Q6H PRN PO PAIN Last administered on 06/30/17 17:46; Admin Dose 1 TAB; Start 06/29/17 at 14:00 Ondansetron HCl (Zofran Inj) 4 mg Q6H PRN IV NAUSEA AND/OR VOMITING Last administered on 06/30/17 11:10; Admin Dose 4 MG; Start 06/30/17 at 11:04 Morphine Sulfate (morphine) 1 mg Q6H PRN IV pain Last administered on 16:40; Admin Dose 1 MG; Start 06/30/17 at 15:00 Morphine Sulfate (morphine) 2 mg Q3 PRN IV PAIN; Start 06/30/17 at 20:30 Acetaminophen/ Hydrocodone Bitart ([place] (5/325)) 1 tab Q4H PRN PO PAIN; Start 06/30/17 at 20:30 HARSHIL ALMONTE M.D. Jun 30, 2017 20:37
[2017-07-01] MEDS: LACTULOSE 30ML CUP PO SCH ×5 (00:10→23:58)
[2017-07-01] MEDS: morphine 2 MG INJ IV PRN ×6 (00:11→23:45)
[2017-07-01 02:57] VITALS: BP 111/51; RESP 16
[2017-07-01] MEDS: PANTOPRAZOLE (EC) 40 MG TAB PO SCH ×2 (06:23→17:20)
[2017-07-01 07:45] VITALS: BP 119/57; RESP 18
[2017-07-01] MEDS: SUCRALFATE 1 GM TAB PO SCH ×4 (08:10→21:01)
[2017-07-01] MEDS: THIAMINE 100 MG TAB PO SCH (08:10)
[2017-07-01] MEDS: MULTIVITAMINS THERAPEUTIC TAB PO SCH (08:11)
[2017-07-01] MEDS: FUROSEMIDE 20 MG TAB PO SCH (08:11)
[2017-07-01] MEDS: FOLIC ACID 1 MG TAB PO SCH (08:11)
[2017-07-01] MEDS: predniSOLONE (3 MG/ML PO SYG) PO SCH (08:11)
--- NOTE | 2017-07-01 11:05 | PN ---
Date/Time of Note Date/Time of Note DATE: 07/01/17 TIME: 11:03 Assessment/Plan VTE Prophylaxis VTE Prophylaxis Intervention: SCD's Lines/Catheters IV Catheter Type (from Nrs): Saline Lock Urinary Cath still in place: No Assessment/Plan Chief Complaint/Hosp Course Assessment/Plan: 31 yo M with EtOH cirrhosis discharged recently after being treated for alcoholic hepatitis, readmitted 3 days later for abd pain 2/2 gastric ulcer for hematemesis 1. abd pain - Hx of gastric ulcer, sp GI eval. no indication for repeat EGD as last was <2 weeks ago - cont BID PPI - cont home lactulose, lasix 2. ETOH hepatitis -still present with jaundice and significantly elevated LFTs - cont steroids -prednisolone, for alcoholic hepatitis in setting of markedly elevated Mardreys discriminant function - f/u GI rec's 3. elevated WBC's - Etio likely to be 2/2 underlying liver disease, steroids, heme onc on the case, per discussion with them today, workup for leukemia or infectious source has been negative thus far. -Status post BM biopsy [id number] results of this. 4. Dispo: sw working on getting patient back into rehab, although overall poor prognosis for patient given advanced alcoholic liver disease. Problems: Subjective 24 Hr Interval Summary Free Text/Dictation Patient had bone marrow biopsy performed yesterday. No acute events overnight. Exam/Review of Systems Vital Signs Vitals Vital Signs Date Time Temp Pulse Resp B/P Pulse Ox O2 Delivery O2 Flow Rate FiO2 07/01/17 07:45 99.2 107 18 119/57 99 06/30/17 13:00 Room Air Intake and Output 06/30/17 06/30/17 07/01/17 15:00 23:00 07:00 Intake Total 1207 ml 0 ml 1880 ml Output Total 0 ml Balance 1207 ml 0 ml 1880 ml Exam nad, lying in bed, jaundiced supple S1, S2, mrg lungs clear abd soft no LE edema B/L Results Result Diagram: 06/28/17 0459 06/27/17 0315 Medications Medications Current Medications Acetaminophen (Tylenol Supp) 650 mg Q6H PRN [place] PAIN LEVEL 1-3 OR FEVER; Start 06/27/17 at 02:30 Sucralfate (Carafate) 1 gm QID PO Last administered on 07/01/17t 08:10; Admin Dose 1 GM; Start 06/27/17 at 11:00 Prednisolone (Prelone (Ped)) 40 mg DAILY PO Last administered on 07/01/17 08: 11; Admin Dose 40 MG; Start 06/28/17 at 09:00 Folic Acid (Folic Acid) 1 mg DAILY PO Last administered on 07/01/17 08:11; Admin Dose 1 MG; Start 06/28/17 at 09:00 Furosemide (Lasix) 20 mg DAILY PO Last administered on 07/01/17 08:11; Admin Dose 20 MG; Start 06/27/17 at 16:30 Lactulose (Enulose) 30 gm Q6 PO Last administered on 07/01/17 06:23; Admin Dose 30 GM; Start 06/27/17 at 18:00 Multivitamins Therapeutic (Theragran) 1 tab DAILY PO Last administered on 07/01 08:11; Admin Dose 1 TAB; Start 06/27/17 at 16:30 Pantoprazole (Protonix Tab) 40 mg BID@ PO Last administered on 07/01/17 06:23; Admin Dose 40 MG; Start 06/27/17 at 18:00 Thiamine HCl (Vitamin B1) 100 mg DAILY PO Last administered on 07/01/17 08:10 ; Admin Dose 100 MG; Start 06/27/17 at 16:30 Acetaminophen/ Hydrocodone Bitart ([place] (7.5-325)) 1 tab Q6H PRN PO PAIN Last administered on 06/30/17 17:46; Admin Dose 1 TAB; Start 06/29/17 at 14:00 Ondansetron HCl (Zofran Inj) 4 mg Q6H PRN IV NAUSEA AND/OR VOMITING Last administered on 06/30/17 11:10; Admin Dose 4 MG; Start 06/30/17 at 11:04 Acetaminophen/ Hydrocodone Bitart ([place] (5/325)) 1 tab Q4H PRN PO PAIN; Start 06/30/17 at 20:30 Morphine Sulfate (morphine) 2 mg Q4 PRN IV PAIN; Start 07/01/17 at 13:00; Status HEATHER SÁNCHEZ S. Jul 01, 2017 11:05
[2017-07-01] MEDS ORDERED: LIDOCAINE 1% (MPF) 5 ML VIAL SC ONE (11:30)
[2017-07-01] MEDS ORDERED: morphine 2 MG INJ IV PRN (13:00)
--- NOTE | 2017-07-01 13:38 | PN ---
Date/Time of Note Date/Time of Note DATE: 07/01/17 TIME: 13:34 Assessment/Plan VTE Prophylaxis VTE Prophylaxis Intervention: ambulation, SCD's Lines/Catheters IV Catheter Type (from [facility]): Saline Lock Urinary Cath still in place: No Assessment/Plan Chief Complaint/Hosp Course Chief Complaint/Hosp Course Assessment: Episode of mild hematemesis/clinically insignificant so far History of bleeding gastric ulcer post Endo Clip placement History of moderate-sized esophageal varices History of severe portal hypertensive gastropathy History of severe alcoholic hepatitis with deep jaundice and severe leukocytosis Severe leukocytosis no evidence of septic foci May be related to alcoholic hepatitis Should consider also other possibilities i.e. myeloproliferative disorder Chronic alcoholism Plan: Continue close observation PPI therapy plus Carafate Continue diuretic therapy Monitor H&H, transfuse as needed Patient appears stable from GI viewpoint outpatient follow-up on current regimen S/p bone marrow bx Continue steroids for alcoholic hepatitis Pt seen in collaboration with Dr. Ospina . Subjective: Course reviewed with nursing staff Patient interviewed and examined All labs, imaging and other results reviewed The patient currently working with [email or web address]. states feels a little tried today, no overt signs of GI bleed S/p bone marrow bx. Continue to monitor H/H transfuse as needed Continue PPI, carafate, and lasix Exam: General: well developed, well nourished, alert and oriented x3 , in no acute distress Skin: Deeply jaundiced. No lesions, positive stigmata chronic liver disease, no evidence of bleeding diathesis Lymphatic: No palpable lymphadenopathy HEENT: No lesions Cardiovascular: Heart: Regular rate and rhythm, Respiratory: Lungs clear to auscultation and percussion, no wheezing, no rubs Gastrointestinal and Liver: Abdomen: Soft, non tenderness, not distended, no hernias, no masses, ascites, no guarding, no rebound tenderness, normoactive bowel sounds. Extremities: BLE edema, improved Psychiatric: Alert and oriented x3, mood/affect/judgment adequate Diagnostic Studies: Available data and images were reviewed personally. See reports. Significant results and findings are addressed here or in the assessment and plan.. Problems: Exam/Review of Systems Vital Signs Vitals Vital Signs Date Time Temp Pulse Resp B/P Pulse Ox O2 Delivery O2 Flow Rate FiO2 07/01/17 07:45 99.2 107 18 119/57 99 06/30/17 13:00 Room Air Intake and Output 11/21/17 11/21/17 11/22/17 15:00 23:00 07:00 Intake Total 1207 ml 0 ml 1880 ml Output Total 0 ml Balance 1207 ml 0 ml 1880 ml Results Result Diagram: 06/28/17 0459 06/27/17 0315 Medications Medications Current Medications Acetaminophen (Tylenol Supp) 650 mg Q6H PRN [place] PAIN LEVEL 1-3 OR FEVER; Start 06/27/17 at 02:30 Sucralfate (Carafate) 1 gm QID PO Last administered on 07/01/17 12:06; Admin Dose 1 GM; Start 06/27/17 at 11:00 Prednisolone (Prelone (Ped)) 40 mg DAILY PO Last administered on 07/01/17 08: 11; Admin Dose 40 MG; Start 06/28/17 at 09:00 Folic Acid (Folic Acid) 1 mg DAILY PO Last administered on 07/01/17 08:11; Admin Dose 1 MG; Start 06/28/17 at 09:00 Furosemide (Lasix) 20 mg DAILY PO Last administered on 07/01/17 08:11; Admin Dose 20 MG; Start 06/27/17 at 16:30 Lactulose (Enulose) 30 gm Q6 PO Last administered on 07/01/17 12:08; Admin Dose 30 GM; Start 06/27/17 at 18:00 Multivitamins Therapeutic (Theragran) 1 tab DAILY PO Last administered on 07/01 08:11; Admin Dose 1 TAB; Start 06/27/17 at 16:30 Pantoprazole (Protonix Tab) 40 mg BID@18 PO Last administered on 07/01/17 06:23; Admin Dose 40 MG; Start 06/27/17 at 18:00 Thiamine HCl (Vitamin B1) 100 mg DAILY PO Last administered on 07/01/17 08:10 ; Admin Dose 100 MG; Start 06/27/17 at 16:30 Acetaminophen/ Hydrocodone Bitart ([place] (7.5-325)) 1 tab Q6H PRN PO PAIN Last administered on 06/30/17 17:46; Admin Dose 1 TAB; Start 06/29/17 at 14:00 Ondansetron HCl (Zofran Inj) 4 mg Q6H PRN IV NAUSEA AND/OR VOMITING Last administered on 06/30/17 11:10; Admin Dose 4 MG; Start 06/30/17 at 11:04 Acetaminophen/ Hydrocodone Bitart ([place] (5/325)) 1 tab Q4H PRN PO PAIN; Start 06/30/17 at 20:30 Morphine Sulfate (morphine) 1.5 mg Q4H PRN IV PAIN Last administered on 12:42; Admin Dose 1.5 MG; Start 07/01/17 at 11:07 LESLI SOLOMON Jul 01, 2017 13:38
[2017-07-01 14:08] VITALS: BP 129/71; RESP 16
--- NOTE | 2017-07-01 15:02 | CONS ---
Date/Time of Note Date/Time of Note DATE: 07/01/17 TIME: 15:01 Assessment/Plan Assessment/Plan Chief Complaint/Hosp Course Patient with severe alcoholic hepatitis and pancreatitis now on steroids who presents with chronic leukocytosis #Leukocytosis - PT does not appear actively infected. pt has been admitted multiple times for alcoholic hepatitis and has presented with severe leukocytosis during those time. His current leukocytosis is likely secondary to the steroids and alcoholic hepatitis. Peripheral smear was reviewed in the past and did not show evidence of acute leukemia or obvious myeloproliferative disorder. Flow cytometry does not show evidence of hematologic malignancy. There is evidence of a left shifted myeloid maturation and no abnormal B cell population. JABARI 2 and BCR ABL are both negative -given the marked increase in WBC count bone marrow bx was done to ensure no evidence of bone marrow dyscrasia -will follow up #Alcoholic Hepatitis -pt has a MELD score 26, pt with 1/5 risk of dying within next 3 mos -continue supportive care per primary team -pt will likely need a liver transplant Problems: Consultation Date/Type/Reason Admit Date/Time Jun 27, 2017 at 00:40 Initial Consult Date 06/28/17 Type of Consultation: hematology Reason for Consultation leukocytosis Referring Provider: SHIRA RAO MD 24 HR Interval Summary Free Text/Dictation peripheral blood smear reviewed. there is no evidence of leukemia Exam/Review of Systems Vital Signs Vitals Vital Signs Date Time Temp Pulse Resp B/P Pulse Ox O2 Delivery O2 Flow Rate FiO2 07/01/17 14:08 98.9 101 16 129/71 98 06/30/17 13:00 Room Air Intake and Output 06/30/17 06/30/17 07/01/17 15:00 23:00 07:00 Intake Total 1207 ml 0 ml 1880 ml Output Total 0 ml Balance 1207 ml 0 ml 1880 ml Exam Constitutional: alert, oriented Psych: no complaints Eyes: icteric ENMT: nl external ears & nose Neck: non-tender, supple Respiratory: clear to auscultation, normal air movement Cardiovascular: regular rate and rhythm Gastrointestinal: soft Musculoskeletal: nl extremities to inspection, nl gait and stance Results Result Diagram: 06/28/17 0459 06/27/17 0315 Medications Medications Current Medications Acetaminophen (Tylenol Supp) 650 mg Q6H PRN [place] PAIN LEVEL 1-3 OR FEVER; Start 06/27/17 at 02:30 Sucralfate (Carafate) 1 gm QID PO Last administered on 07/01/17 12:06; Admin Dose 1 GM; Start 06/27/17 at 11:00 Prednisolone (Prelone (Ped)) 40 mg DAILY PO Last administered on 07/01/17 08: 11; Admin Dose 40 MG; Start 06/28/17 at 09:00 Folic Acid (Folic Acid) 1 mg DAILY PO Last administered on 07/01/17 08:11; Admin Dose 1 MG; Start 06/28/17 at 09:00 Furosemide (Lasix) 20 mg DAILY PO Last administered on 07/01/17 08:11; Admin Dose 20 MG; Start 06/27/17 at 16:30 Lactulose (Enulose) 30 gm Q6 PO Last administered on 07/01/17 12:08; Admin Dose 30 GM; Start 06/27/17 at 18:00 Multivitamins Therapeutic (Theragran) 1 tab DAILY PO Last administered on 07/01 08:11; Admin Dose 1 TAB; Start 06/27/17 at 16:30 Pantoprazole (Protonix Tab) 40 mg BID@18 PO Last administered on 07/01/17 06:23; Admin Dose 40 MG; Start 06/27/17 at 18:00 Thiamine HCl (Vitamin B1) 100 mg DAILY PO Last administered on 07/01/17 08:10 ; Admin Dose 100 MG; Start 06/27/17 at 16:30 Acetaminophen/ Hydrocodone Bitart ([place] (7.5-325)) 1 tab Q6H PRN PO PAIN Last administered on 06/30/17 17:46; Admin Dose 1 TAB; Start 06/29/17 at 14:00 Ondansetron HCl (Zofran Inj) 4 mg Q6H PRN IV NAUSEA AND/OR VOMITING Last administered on 06/30/17 11:10; Admin Dose 4 MG; Start 06/30/17 at 11:04 Acetaminophen/ Hydrocodone Bitart ([place] (5/325)) 1 tab Q4H PRN PO PAIN; Start 06/30/17 at 20:30 Morphine Sulfate (morphine) 1.5 mg Q4H PRN IV PAIN Last administered on 12:42; Admin Dose 1.5 MG; Start 07/01/17 at 11:07 HARSHIL ALMONTE M.D. Jul 01, 2017 15:02
[2017-07-01] MEDS: HYDROCODONE/APAP (5/325) TAB PO PRN ×2 (15:38→21:01)
[2017-07-01 20:31] VITALS: BP 125/71; RESP 20
[2017-07-02] MEDS: HYDROCODONE/APAP (5/325) TAB PO PRN ×4 (01:35→15:13)
[2017-07-02 02:18] VITALS: BP 125/57; RESP 20
[2017-07-02] MEDS: morphine 2 MG INJ IV PRN ×3 (04:41→13:19)
[2017-07-02] MEDS: LACTULOSE 30ML CUP PO SCH ×3 (06:02→17:15)
[2017-07-02] MEDS: PANTOPRAZOLE (EC) 40 MG TAB PO SCH ×2 (06:02→17:14)
[2017-07-02 06:14] LABS: ABNORMAL IP MESSAGE 1; HEMATOCRIT 24.8 % (42.0-52.0); HEMOGLOBIN 8.7 g/dl (14.0-18.0); MEAN CORPUSCULAR HEMOGLOBIN 31.6 pg (29.0-33.0); MEAN CORPUSCULAR HGB CONC 35.1 g/dl (32.0-37.0); MEAN CORPUSCULAR VOLUME 90.2 fl (82.0-101.0); MEAN PLATELET VOLUME 12.3 fl (7.4-10.4); PLATELET COUNT 203 10^3/UL (140-415); POSITIVE DIFF @See below; RED BLOOD COUNT 2.75 10^6/ul (4.70-6.10); RED CELL DISTRIBUTION WIDTH 25.2 % (11.5-14.5); WHITE BLOOD COUNT 55.1 10^3/ul (4.8-10.8)
[2017-07-02 06:31] LABS: ALBUMIN 2.7 g/dl (3.3-4.9); ALBUMIN/GLOBULIN RATIO 0.67; BILIRUBIN,INDIRECT 2.8 mg/dl (0-1.1); BILIRUBIN,TOTAL 20.3 mg/dl (0.2-1.3); CALCIUM 7.9 mg/dl (8.4-10.2); CREATININE 0.49 mg/dl (0.61-1.24); TOTAL PROTEIN 6.7 g/dl (6.1-8.1)
[2017-07-02 06:37] LABS: BILIRUBIN,DIRECT 17.5 mg/dl (0.00-0.20); POTASSIUM 2.7 mmol/L (3.5-5.1)
[2017-07-02 07:21] VITALS: BP 112/66; RESP 16
[2017-07-02 07:40] LABS: ANISOCYTOSIS 3+ (0-0); BURR CELLS 2+ (0-0); EOSINOPHILS % (M) 2 % (0-7); METAMYELOCYTES %M 1 % (0-0); MONOCYTES % (M) 3 % (0-11); MYELOCYTES % (M) 1 % (0-0); OVALOCYTES 1+ (0-0); PLATELET ESTIMATE NORMAL; POIKILOCYTOSIS 3+ (0-0); POLYCHROMASIA 1+ (0-0); SCHISTOCYTES 1+ (0-0); TARGET CELLS 1+ (0-0)
[2017-07-02] MEDS: POTASSIUM CHLORIDE (SR) 20 MEQ TAB PO SCH ×2 (07:42→11:08)
[2017-07-02] MEDS: THIAMINE 100 MG TAB PO SCH (08:40)
[2017-07-02] MEDS: MULTIVITAMINS THERAPEUTIC TAB PO SCH (08:40)
[2017-07-02] MEDS: SUCRALFATE 1 GM TAB PO SCH ×4 (08:40→20:31)
[2017-07-02] MEDS: FOLIC ACID 1 MG TAB PO SCH (08:40)
[2017-07-02] MEDS: FUROSEMIDE 20 MG TAB PO SCH (08:41)
[2017-07-02] MEDS ORDERED: POTASSIUM CHLORIDE (SR) 20 MEQ TAB PO SCH (09:00)
[2017-07-02] MEDS: predniSOLONE (3 MG/ML PO SYG) PO SCH (09:49)
--- NOTE | 2017-07-02 09:52 | OPPN ---
Date/Time of Note Date/Time of Note DATE: 07/02/17 TIME: 09:47 Proc Note GI Procedure Date 07/02/17 Indication: other (GI bleeding) Pre-procedure Diagnosis GI bleeding Post-procedure Diagnosis Impression: Erosive esophagitis. No esophageal varices Erosive gastritis. Plan: Continue PPI drip Monitor H&H, transfuse as necessary ETOH withdrawal protocol Procedure Performed: Endoscopy Surgeon IFTIKHAR GONZALEZ MD See signature line Perl Developer none Anesthesia Type: MAC Anesthesiologist: YO SALAZAR MD Tourniquet Time none EBL none Transfusion required none Biopsy 1: None Grafts/Implants none Tubes/Drains none Complication(s) none Disposition: other (ICU) Procedure Description After informed consent, with the patient/relatives understanding the procedure, its indications, potential risks and complications, including but not limited to : allergic reaction, bleeding, perforation or infection, and after all pertinent questions were answered to the patients satisfaction, the patient/ relatives signed witnessed informed consent. Following this, premedication was administered slowly IV push under careful cardiovascular and respiratory monitoring with pulse oximetry, automatic blood pressure, and annealing oven operator. Once the sedative effect was achieved the patient was place in the left lateral decubitus, the panendoscope was introduced and advanced under visual control. Careful examination of the upper gastrointestinal tract, both on insertion as well as withdrawal of the instrument disclosing the following findings: ESOPHAGUS: the mucosa of the entire esophagus was carefully examined and showed the following findings: There is erythema, edema and erosions of the distal esophagus. No varices are present. Otherwise the mucosa appears within normal limits. There is no evidence of varices, neoplasm, or stricture. No Hiatal Hernia identified. STOMACH: Upon entrance to the stomach air was insufflated, the gastric santiago distended normally. The mucosa of the fundus, body and antrum of the stomach was carefully examined both head-on and on retroflexion, and showed the following findings: There is erythema edema and superficial erosion of the mucosa in a diffuse pattern. Findings are consistent with alcoholic gastritis. Otherwise the mucosa appears within normal limits with no abnormalities. There is no evidence of ulcers or neoplasm. PYLORUS: The pylorus was carefully examined and showed the following findings: the pylorus appears patent and within normal limits, with no evidence of gastric outlet obstruction. DUODENUM: The duodenal mucosa was carefully examined in the duodenal bulb as well as the second portion of the duodenum and showed the following findings: the mucosa appears unremarkable with no evidence of duodenitis, ulcer or neoplasm. Copies To: CC: IFTIKHAR GONZALEZ MD, MORDO MD Jul 02, 2017 09:52
--- NOTE | 2017-07-02 10:30 | PN ---
Date/Time of Note Date/Time of Note DATE: 07/02/17 TIME: 10:28 Assessment/Plan VTE Prophylaxis VTE Prophylaxis Intervention: ambulation, SCD's Lines/Catheters IV [facility] (from [facility] Saline Lock Urinary Cath still in place: No Assessment/Plan Chief Complaint/Hosp Course Chief Complaint/Hosp Course Assessment: Episode of mild hematemesis/clinically insignificant so far History of bleeding gastric ulcer post Endo Clip placement History of moderate-sized esophageal varices History of severe portal hypertensive gastropathy History of severe alcoholic hepatitis with deep jaundice and severe leukocytosis Severe leukocytosis no evidence of septic foci May be related to alcoholic hepatitis Should consider also other possibilities i.e. myeloproliferative disorder Chronic alcoholism Plan: Continue close observation Continue PPI therapy plus Carafate Monitor H&H, transfuse as needed Patient appears stable from GI viewpoint outpatient follow-up on current regimen bone marrow bx pending Continue steroids for alcoholic hepatitis Pt seen in collaboration with Dr. Ospina . Subjective: Course reviewed with nursing staff Patient interviewed and examined All labs, imaging and other results reviewed The patient reports no further episodes of hematemesis or other evidence of overt GI bleeding Pt doing better today, bone marrow bx pending Exam: General: well developed, well nourished, alert and oriented x3 , in no acute distress Skin: Deeply jaundiced. No lesions, positive stigmata chronic liver disease, no evidence of bleeding diathesis Lymphatic: No palpable lymphadenopathy HEENT: No lesions Cardiovascular: Heart: Regular rate and rhythm, Respiratory: Lungs clear to auscultation and percussion, no wheezing, no rubs Gastrointestinal and Liver: Abdomen: Soft, non tenderness, not distended, no hernias, no masses, ascites, no guarding, no rebound tenderness, normoactive bowel sounds. Extremities: BLE edema, improved Psychiatric: Alert and oriented x3, mood/affect/judgment adequate Diagnostic Studies: Available data and images were reviewed personally. See reports. Significant results and findings are addressed here or in the assessment and plan.. Problems: Exam/Review of Systems Vital Signs Vitals Vital Signs Date Time Temp Pulse Resp B/P Pulse Ox O2 Delivery O2 Flow Rate FiO2 07/02/17 07:21 97.5 75 16 112/66 99 06/30/17 13:00 Room Air Intake and Output 07/01/17 07/01/17 07/02/17 15:00 23:00 07:00 Intake Total 2580 ml 1600 ml Output Total 1000 ml Balance 2580 ml 600 ml Results Result Diagram: 07/02/17 0551 07/02/17 0551 Results 24 hrs Laboratory Tests Test 07/02/17 05:51 07/02/17 07:46 White Blood Count 55.1 H Red Blood Count 2.75 L Hemoglobin 8.7 L Hematocrit 24.8 L Mean Corpuscular Volume 90.2 Mean Corpuscular Hemoglobin 31.6 Mean Corpuscular Hemoglobin Concent 35.1 Red Cell Distribution Width 25.2 H Platelet Count 203 Mean Platelet Volume 12.3 H Neutrophils % Segmented Neutrophils % (Manual) 83 H Band Neutrophils % (Manual) 5 H Lymphocytes % Lymphocytes % (Manual) 5 L Monocytes % Monocytes % (Manual) 3 Eosinophils % Eosinophils % (Manual) 2 Basophils % Metamyelocytes % (manual) 1 H Myelocytes % (Manual) 1 H Nucleated Red Blood Cells % 0.0 Neutrophils # Neutrophils # (Manual) 47.2 H Band Neutrophils # 2.7 H Absolute Lymphocytes (Manual) 2.7 Lymphocytes # Monocytes # Absolute Monocytes (Manual) 1.6 H Eosinophils # Basophils # Metamyelocytes # 0.5 H Myelocytes # 0.5 H Nucleated Red Blood Cells # Platelet Estimate NORMAL Polychromasia 1+ Poikilocytosis 3+ Anisocytosis 3+ Macrocytosis 2+ Target Cells 1+ Ovalocytes 1+ Schistocytes 1+ Sodium Level 133 L Potassium Level 2.7 *L Chloride Level 101 Carbon Dioxide Level 18 L Anion Gap 17 H Blood Urea Nitrogen 8 Creatinine 0.49 L Glucose Level 104 Calcium Level 7.9 L Total Bilirubin 20.3 H Direct Bilirubin 17.50 *H Indirect Bilirubin 2.8 H Aspartate Amino Transf (AST/SGOT) 33 Alanine Aminotransferase (ALT/SGPT) 55 Alkaline Phosphatase 333 H Total Protein 6.7 Albumin 2.7 L Globulin 4.00 H Albumin/Globulin Ratio 0.67 Lab Scanned Report BLOOD TRANSFUSION Medications Medications Current Medications Acetaminophen (Tylenol Supp) 650 mg Q6H PRN [place] PAIN LEVEL 1-3 OR FEVER; Start 06/27/17 at 02:30 Sucralfate (Carafate) 1 gm QID PO Last administered on 07/02/17t 08:40; Admin Dose 1 GM; Start 06/27/17 at 11:00 Prednisolone (Prelone (Ped)) 40 mg DAILY PO Last administered on 07/02/17 09: 49; Admin Dose 40 MG; Start 06/28/17 at 09:00 Folic Acid (Folic Acid) 1 mg DAILY PO Last administered on 07/02/17 08:40; Admin Dose 1 MG; Start 06/28/17 at 09:00 Furosemide (Lasix) 20 mg DAILY PO Last administered on 07/02/17 08:41; Admin Dose 20 MG; Start 06/27/17 at 16:30 Lactulose (Enulose) 30 gm Q6 PO Last administered on 07/02/17 06:02; Admin Dose 30 GM; Start 06/27/17 at 18:00 Multivitamins Therapeutic (Theragran) 1 tab DAILY PO Last administered on 07/02 08:40; Admin Dose 1 TAB; Start 06/27/17 at 16:30 Pantoprazole (Protonix Tab) 40 mg BID@ PO Last administered on 07/02/17 06:02; Admin Dose 40 MG; Start 06/27/17 at 18:00 Thiamine HCl (Vitamin B1) 100 mg DAILY PO Last administered on 07/02/17 08:40 ; Admin Dose 100 MG; Start 06/27/17 at 16:30 Acetaminophen/ Hydrocodone Bitart ([place] (7.5-325)) 1 tab Q6H PRN PO PAIN Last administered on 06/30/17 17:46; Admin Dose 1 TAB; Start 06/29/17 at 14:00 Ondansetron HCl (Zofran Inj) 4 mg Q6H PRN IV NAUSEA AND/OR VOMITING Last administered on 06/30/17 11:10; Admin Dose 4 MG; Start 06/30/17 at 11:04 Acetaminophen/ Hydrocodone Bitart ([place] (5/325)) 1 tab Q4H PRN PO PAIN Last administered on 07/02/17 06:36; Admin Dose 1 TAB; Start 06/30/17 at 20:30 Morphine Sulfate (morphine) 1.5 mg Q4H PRN IV PAIN Last administered on 08:42; Admin Dose 1.5 MG; Start 07/01/17 at 11:07 Potassium Chloride (Klor-Con 20) 40 meq Q4H PO Last administered on 07/02/17 07:42; Admin Dose 40 MEQ; Start 07/02/17 at 07:30; Stop 07/02/17 at 11:31 LESLI SOLOMON Jul 02, 2017 10:30
--- NOTE | 2017-07-02 12:17 | PN ---
Date/Time of Note Date/Time of Note DATE: 07/02/17 TIME: 12:15 Assessment/Plan VTE Prophylaxis VTE Prophylaxis Intervention: SCD's Lines/Catheters IV C[facility]ter Type (from [facility]): Saline Lock Urinary Cath still in place: No Assessment/Plan Chief Complaint/Hosp Course Assessment/Plan: 31 yo M with EtOH cirrhosis discharged recently after being treated for alcoholic hepatitis, readmitted 3 days later for abd pain 2/2 gastric ulcer for hematemesis 1. abd pain - Hx of gastric ulcer, sp GI eval. no indication for repeat EGD as last was <2 weeks ago - cont BID PPI - cont home lactulose, lasix 2. ETOH hepatitis -still present with jaundice and significantly elevated LFTs - cont steroids -prednisolone, for alcoholic hepatitis in setting of markedly elevated Mardreys discriminant function - f/u GI rec's 3. elevated WBC's - Etio likely to be 2/2 underlying liver disease, steroids, heme onc on the case, workup for leukemia or infectious source has been negative thus far. Again patient had bone marrow biopsy 2 days ago. -follow-up results of bone marrow biopsy to rule out any blood dyscrasias. 4. Dispo: sw working on getting patient back into rehab, although overall poor prognosis for patient given advanced alcoholic liver disease. Problems: Subjective 24 Hr Interval Summary Free Text/Dictation Patient still on steroids, seen by GI team earlier, no acute events overnight. Exam/Review of Systems Vital Signs Vitals Vital Signs Date Time Temp Pulse Resp B/P Pulse Ox O2 Delivery O2 Flow Rate FiO2 07/02/17 07:21 97.5 75 16 112/66 99 06/30/17 13:00 Room Air Intake and Output 07/01/17 07/01/17 07/02/17 15:00 23:00 07:00 Intake Total 2580 ml 1600 ml Output Total 1000 ml Balance 2580 ml 600 ml Exam nad, lying in bed, jaundiced supple S1, S2, mrg lungs clear abd soft no LE edema B/L Results Result Diagram: 07/02/17 0551 07/02/17 0551 Results 24 hrs Laboratory Tests Test 07/02/17 05:51 07/02/17 07:46 White Blood Count 55.1 H Red Blood Count 2.75 L Hemoglobin 8.7 L Hematocrit 24.8 L Mean Corpuscular Volume 90.2 Mean Corpuscular Hemoglobin 31.6 Mean Corpuscular Hemoglobin Concent 35.1 Red Cell Distribution Width 25.2 H Platelet Count 203 Mean Platelet Volume 12.3 H Neutrophils % Segmented Neutrophils % (Manual) 83 H Band Neutrophils % (Manual) 5 H Lymphocytes % Lymphocytes % (Manual) 5 L Monocytes % Monocytes % (Manual) 3 Eosinophils % Eosinophils % (Manual) 2 Basophils % Metamyelocytes % (manual) 1 H Myelocytes % (Manual) 1 H Nucleated Red Blood Cells % 0.0 Neutrophils # Neutrophils # (Manual) 47.2 H Band Neutrophils # 2.7 H Absolute Lymphocytes (Manual) 2.7 Lymphocytes # Monocytes # Absolute Monocytes (Manual) 1.6 H Eosinophils # Basophils # Metamyelocytes # 0.5 H Myelocytes # 0.5 H Nucleated Red Blood Cells # Platelet Estimate NORMAL Polychromasia 1+ Poikilocytosis 3+ Anisocytosis 3+ Macrocytosis 2+ Target Cells 1+ Ovalocytes 1+ Schistocytes 1+ Sodium Level 133 L Potassium Level 2.7 *L Chloride Level 101 Carbon Dioxide Level 18 L Anion Gap 17 H Blood Urea Nitrogen 8 Creatinine 0.49 L Glucose Level 104 Calcium Level 7.9 L Total Bilirubin 20.3 H Direct Bilirubin 17.50 *H Indirect Bilirubin 2.8 H Aspartate Amino Transf (AST/SGOT) 33 Alanine Aminotransferase (ALT/SGPT) 55 Alkaline Phosphatase 333 H Total Protein 6.7 Albumin 2.7 L Globulin 4.00 H Albumin/Globulin Ratio 0.67 Lab Scanned Report BLOOD TRANSFUSION Medications Medications Current Medications Acetaminophen (Tylenol Supp) 650 mg Q6H PRN [place] PAIN LEVEL 1-3 OR FEVER; Start 06/27/17 at 02:30 Sucralfate (Carafate) 1 gm QID PO Last administered on 07/02/17 08:40; Admin Dose 1 GM; Start 06/27/17 at 11:00 Prednisolone (Prelone (Ped)) 40 mg DAILY PO Last administered on 07/02/17 09: 49; Admin Dose 40 MG; Start 06/28/17 at 09:00 Folic Acid (Folic Acid) 1 mg DAILY PO Last administered on 07/02/17 08:40; Admin Dose 1 MG; Start 06/28/17 at 09:00 Furosemide (Lasix) 20 mg DAILY PO Last administered on 07/02/17 08:41; Admin Dose 20 MG; Start 06/27/17 at 16:30 Lactulose (Enulose) 30 gm Q6 PO Last administered on 07/02/17 11:09; Admin Dose 30 GM; Start 06/27/17 at 18:00 Multivitamins Therapeutic (Theragran) 1 tab DAILY PO Last administered on 07/02 08:40; Admin Dose 1 TAB; Start 06/27/17 at 16:30 Pantoprazole (Protonix Tab) 40 mg BID@18 PO Last administered on 07/02/17 06:02; Admin Dose 40 MG; Start 06/27/17 at 18:00 Thiamine HCl (Vitamin B1) 100 mg DAILY PO Last administered on 07/02/17 08:40 ; Admin Dose 100 MG; Start 06/27/17 at 16:30 Acetaminophen/ Hydrocodone Bitart ([place] (7.5-325)) 1 tab Q6H PRN PO PAIN Last administered on 06/30/17 17:46; Admin Dose 1 TAB; Start 06/29/17 at 14:00 Ondansetron HCl (Zofran Inj) 4 mg Q6H PRN IV NAUSEA AND/OR VOMITING Last administered on 06/30/17 11:10; Admin Dose 4 MG; Start 06/30/17 at 11:04 Acetaminophen/ Hydrocodone Bitart ([place] (5/325)) 1 tab Q4H PRN PO PAIN Last administered on 07/02/17 11:09; Admin Dose 1 TAB; Start 06/30/17 at 20:30 Morphine Sulfate (morphine) 1.5 mg Q4H PRN IV PAIN Last administered on 08:42; Admin Dose 1.5 MG; Start 07/01/17 at 11:07 HEATHER GORDON 23, 2017 12:17
[2017-07-02 14:16] LABS: CALCIUM 7.9 mg/dl (8.4-10.2); CREATININE 0.5 mg/dl (0.61-1.24)
[2017-07-02 15:05] VITALS: BP 124/70; RESP 16
[2017-07-02 20:00] VITALS: BP 129/64; RESP 20
[2017-07-02] MEDS: HYDROCODONE/APAP (7.5/325) TAB PO PRN (20:32)
[2017-07-03] MEDS: LACTULOSE 30ML CUP PO SCH ×5 (00:06→23:04)
[2017-07-03] MEDS: morphine 2 MG INJ IV PRN ×6 (00:07→23:04)
[2017-07-03 02:00] VITALS: BP 109/69; RESP 20
[2017-07-03] MEDS: HYDROCODONE/APAP (7.5/325) TAB PO PRN ×3 (02:19→20:11)
[2017-07-03] MEDS: PANTOPRAZOLE (EC) 40 MG TAB PO SCH ×2 (06:16→17:50)
[2017-07-03 06:34] LABS: ABNORMAL IP MESSAGE 1; HEMATOCRIT 26.1 % (42.0-52.0); HEMOGLOBIN 9.1 g/dl (14.0-18.0); MEAN CORPUSCULAR HEMOGLOBIN 32.2 pg (29.0-33.0); MEAN CORPUSCULAR HGB CONC 34.9 g/dl (32.0-37.0); MEAN CORPUSCULAR VOLUME 92.2 fl (82.0-101.0); MEAN PLATELET VOLUME 11.4 fl (7.4-10.4); PLATELET COUNT 225 10^3/UL (140-415); POSITIVE DIFF @See below; RED BLOOD COUNT 2.83 10^6/ul (4.70-6.10); RED CELL DISTRIBUTION WIDTH 25.3 % (11.5-14.5); WHITE BLOOD COUNT 52.7 10^3/ul (4.8-10.8)
[2017-07-03 07:43] VITALS: BP 120/58; RESP 16
[2017-07-03] MEDS: FUROSEMIDE 20 MG TAB PO SCH (08:47)
[2017-07-03] MEDS: SUCRALFATE 1 GM TAB PO SCH ×4 (08:47→20:09)
[2017-07-03] MEDS: THIAMINE 100 MG TAB PO SCH (08:47)
[2017-07-03] MEDS: predniSOLONE (3 MG/ML PO SYG) PO SCH (08:48)
[2017-07-03] MEDS: MULTIVITAMINS THERAPEUTIC TAB PO SCH (08:48)
[2017-07-03] MEDS: FOLIC ACID 1 MG TAB PO SCH (08:48)
[2017-07-03 09:20] LABS: ANISOCYTOSIS 3+ (0-0); EOSINOPHILS % (M) 2 % (0-7); METAMYELOCYTES %M 1 % (0-0); MONOCYTES % (M) 3 % (0-11); MYELOCYTES % (M) 1 % (0-0); PLATELET ESTIMATE NORMAL; POIKILOCYTOSIS 3+ (0-0); POLYCHROMASIA 3+ (0-0)
--- NOTE | 2017-07-03 11:20 | PN ---
Date/Time of Note Date/Time of Note DATE: 07/03/17 TIME: 11:12 Assessment/Plan VTE Prophylaxis VTE Prophylaxis Intervention: SCD's Lines/Catheters [facility] Saline Lock Urinary Cath still in place: No Assessment/Plan Chief Complaint/Hosp Course Assessment/Plan: 31 yo M with EtOH cirrhosis discharged recently after being treated for alcoholic hepatitis, readmitted 3 days later for abd pain 2/2 gastric ulcer for hematemesis. 1. abd pain - Hx of gastric ulcer, sp GI eval. no indication for repeat EGD as last was <2 weeks ago - cont BID PPI - cont home lactulose, lasix 2. ETOH hepatitis -still present with jaundice and significantly elevated LFTs - cont steroids -prednisolone (needs 28 days total), for alcoholic hepatitis in setting of markedly elevated Mardreys discriminant function - f/u GI rec's 3. elevated WBC's - Etio likely to be 2/2 underlying liver disease, steroids, heme onc on the case, workup for leukemia or infectious source has been negative thus far. Again patient had bone marrow biopsy 3 days ago. -follow-up results of bone marrow biopsy to rule out any blood dyscrasias ( pending). 4. Dispo: sw working on getting patient back into rehab, although overall poor prognosis for patient given advanced alcoholic liver disease. Problems: Subjective 24 Hr Interval Summary Free Text/Dictation No acute events overnight. Exam/Review of Systems Vital Signs Vitals Vital Signs Date Time Temp Pulse Resp B/P Pulse Ox O2 Delivery O2 Flow Rate FiO2 07/03/17 07:43 97.6 74 16 120/58 99 06/30/17 13:00 Room Air Intake and Output 07/02/17 07/02/17 07/03/17 14:59 22:59 06:59 Intake Total 3320 ml Balance 3320 ml Exam nad, lying in bed, jaundiced supple S1, S2, mrg lungs clear abd soft no LE edema B/L Results Result Diagram: 07/03/17 0603 07/02/17 1330 Results 24 hrs Laboratory Tests Test 07/02/17 13:30 07/03/17 06:03 Sodium Level 136 Potassium Level 3.0 L Chloride Level 104 Carbon Dioxide Level 19 L Anion Gap 16 Blood Urea Nitrogen 9 Creatinine 0.50 L Glucose Level 147 # Calcium Level 7.9 L White Blood Count 52.7 H Red Blood Count 2.83 L Hemoglobin 9.1 L Hematocrit 26.1 L Mean Corpuscular Volume 92.2 Mean Corpuscular Hemoglobin 32.2 Mean Corpuscular Hemoglobin Concent 34.9 Red Cell Distribution Width 25.3 H Platelet Count 225 Mean Platelet Volume 11.4 H Neutrophils % Segmented Neutrophils % (Manual) 79 H Band Neutrophils % (Manual) 10 H Lymphocytes % Lymphocytes % (Manual) 3 L Monocytes % Monocytes % (Manual) 3 Eosinophils % Eosinophils % (Manual) 2 Basophils % Metamyelocytes % (manual) 1 H Myelocytes % (Manual) 1 H Nucleated Red Blood Cells % 0.0 Neutrophils # Neutrophils # (Manual) 44.4 H Band Neutrophils # 5.2 H Absolute Lymphocytes (Manual) 1.5 Lymphocytes # Monocytes # Absolute Monocytes (Manual) 1.5 H Eosinophils # Basophils # Metamyelocytes # 0.5 H Myelocytes # 0.5 H Nucleated Red Blood Cells # Platelet Estimate NORMAL Polychromasia 3+ Poikilocytosis 3+ Anisocytosis 3+ Macrocytosis 3+ Medications Medications Current Medications Acetaminophen (Tylenol Supp) [address] PAIN LEVEL 1-3 OR FEVER; Start 06/27/17 at 02:30 Sucralfate (Carafate) 1 gm QID PO Last administered on 07/03/17 08:47; Admin Dose 1 GM; Start 06/27/17 at 11:00 Prednisolone (Prelone (Ped)) 40 mg DAILY PO Last administered on 07/03/17 08: 48; Admin Dose 40 MG; Start 06/28/17 at 09:00 Folic Acid (Folic Acid) 1 mg DAILY PO Last administered on 07/03/17 08:48; Admin Dose 1 MG; Start 06/28/17 at 09:00 Furosemide (Lasix) 20 mg DAILY PO Last administered on 07/03/17 08:47; Admin Dose 20 MG; Start 06/27/17 at 16:30 Lactulose (Enulose) 30 gm Q6 PO Last administered on 07/03/17 06:16; Admin Dose 30 GM; Start 06/27/17 at 18:00 Multivitamins Therapeutic (Theragran) 1 tab DAILY PO Last administered on 07/03 08:48; Admin Dose 1 TAB; Start 06/27/17 at 16:30 Pantoprazole (Protonix Tab) 40 mg BID@,18 PO Last administered on 07/03/17 06:16; Admin Dose 40 MG; Start 06/27/17 at 18:00 Thiamine HCl (Vitamin B1) 100 mg DAILY PO Last administered on 07/03/17 08:47 ; Admin Dose 100 MG; Start 06/27/17 at 16:30 Acetaminophen/ Hydrocodone Bitart ([place] (7.5-325)) 1 tab Q6H PRN PO PAIN Last administered on 07/03/17 10:52; Admin Dose 1 TAB; Start 06/29/17 at 14:00 Ondansetron HCl (Zofran Inj) 4 mg Q6H PRN IV NAUSEA AND/OR VOMITING Last administered on 06/30/17 11:10; Admin Dose 4 MG; Start 06/30/17 at 11:04 Acetaminophen/ Hydrocodone Bitart ([place] (5/325)) 1 tab Q4H PRN PO PAIN Last administered on 07/02/17 15:13; Admin Dose 1 TAB; Start 06/30/17 at 20:30 Morphine Sulfate (morphine) 1.5 mg Q4H PRN IV PAIN Last administered on 08:49; Admin Dose 1.5 MG; Start 07/01/17 at 11:07 HEATHER GORDON Jul 03, 2017 11:20
--- NOTE | 2017-07-03 11:30 | PN ---
Date/Time of Note Date/Time of Note DATE: 07/03/17 TIME: 11:27 Assessment/Plan VTE Prophylaxis VTE Prophylaxis Intervention: SCD's Lines/Catheters IV C[facility]ter Type (from [email or web address] Saline Lock Urinary Cath still in place: No Assessment/Plan Chief Complaint/Hosp Course Chief Complaint/Hosp Course Assessment: Episode of mild hematemesis/clinically insignificant so far History of bleeding gastric ulcer post Endo Clip placement History of moderate-sized esophageal varices History of severe portal hypertensive gastropathy History of severe alcoholic hepatitis with deep jaundice and severe leukocytosis Severe leukocytosis no evidence of septic foci May be related to alcoholic hepatitis Should consider also other possibilities i.e. myeloproliferative disorder Chronic alcoholism Plan: Continue PPI therapy plus Carafate Monitor H&H, transfuse as needed Patient appears stable from GI viewpoint outpatient follow-up on current regimen Continue steroids for alcoholic hepatitis for a total of 28 days Bone marrow bx pending increased edmea will add Aldactone Pt seen in collaboration with Dr. Ospina . Subjective: Course reviewed with nursing staff Patient interviewed and examined All labs, imaging and other results reviewed The patient continues to work with PT, continue steroid therapy for a total of 28 days. No significant events over night, patient with increased edema will add Aldactone to current regimen. Physical exam: General: well developed, well nourished, alert and oriented x3 , in no acute distress Skin: Deeply jaundiced. No lesions, positive stigmata chronic liver disease, no evidence of bleeding diathesis Lymphatic: No palpable lymphadenopathy HEENT: No lesions Cardiovascular: Heart: Regular rate and rhythm, Respiratory: Lungs clear to auscultation and percussion, no wheezing, no rubs Gastrointestinal and Liver: Abdomen: Soft, non tenderness, not distended, no hernias, no masses, ascites, no guarding, no rebound tenderness, normoactive bowel sounds. Extremities: BLE edema, improved Psychiatric: Alert and oriented x3, mood/affect/judgment adequate Diagnostic Studies: Available data and images were reviewed personally. See reports. Significant results and findings are addressed here or in the assessment and plan.. Problems: Exam/Review of Systems Vital Signs Vitals Vital Signs Date Time Temp Pulse Resp B/P Pulse Ox O2 Delivery O2 Flow Rate FiO2 07/03/17 07:43 97.6 74 16 120/58 99 06/30/17 13:00 Room Air Intake and Output 07/02/17 07/02/17 07/03/17 15:00 23:00 07:00 Intake Total 3320 ml Balance 3320 ml Results Result Diagram: 07/03/17 0603 07/02/17 1330 Results 24 hrs Laboratory Tests Test 07/02/17 13:30 07/03/17 06:03 Sodium Level 136 Potassium Level 3.0 L Chloride Level 104 Carbon Dioxide Level 19 L Anion Gap 16 Blood Urea Nitrogen 9 Creatinine 0.50 L Glucose Level 147 # Calcium Level 7.9 L White Blood Count 52.7 H Red Blood Count 2.83 L Hemoglobin 9.1 L Hematocrit 26.1 L Mean Corpuscular Volume 92.2 Mean Corpuscular Hemoglobin 32.2 Mean Corpuscular Hemoglobin Concent 34.9 Red Cell Distribution Width 25.3 H Platelet Count 225 Mean Platelet Volume 11.4 H Neutrophils % Segmented Neutrophils % (Manual) 79 H Band Neutrophils % (Manual) 10 H Lymphocytes % Lymphocytes % (Manual) 3 L Monocytes % Monocytes % (Manual) 3 Eosinophils % Eosinophils % (Manual) 2 Basophils % Metamyelocytes % (manual) 1 H Myelocytes % (Manual) 1 H Nucleated Red Blood Cells % 0.0 Neutrophils # Neutrophils # (Manual) 44.4 H Band Neutrophils # 5.2 H Absolute Lymphocytes (Manual) 1.5 Lymphocytes # Monocytes # Absolute Monocytes (Manual) 1.5 H Eosinophils # Basophils # Metamyelocytes # 0.5 H Myelocytes # 0.5 H Nucleated Red Blood Cells # Platelet Estimate NORMAL Polychromasia 3+ Poikilocytosis 3+ Anisocytosis 3+ Macrocytosis 3+ Medications Medications Current Medications Acetaminophen (Tylenol Supp) 650 mg Q6H PRN [place] PAIN LEVEL 1-3 OR FEVER; Start 06/27/17 at 02:30 Sucralfate (Carafate) 1 gm QID PO Last administered on 07/03/17 08:47; Admin Dose 1 GM; Start 06/27/17 at 11:00 Prednisolone (Prelone (Ped)) 40 mg DAILY PO Last administered on 07/03/17 08: 48; Admin Dose 40 MG; Start 06/28/17 at 09:00 Folic Acid (Folic Acid) 1 mg DAILY PO Last administered on 07/03/17 08:48; Admin Dose 1 MG; Start 06/28/17 at 09:00 Furosemide (Lasix) 20 mg DAILY PO Last administered on 07/03/17 08:47; Admin Dose 20 MG; Start 06/27/17 at 16:30 Lactulose (Enulose) 30 gm Q6 PO Last administered on 07/03/17 06:16; Admin Dose 30 GM; Start 06/27/17 at 18:00 Multivitamins Therapeutic (Theragran) 1 tab DAILY PO Last administered on 07/03 08:48; Admin Dose 1 TAB; Start 06/27/17 at 16:30 Pantoprazole (Protonix Tab) 40 mg BID@18 PO Last administered on 07/03/17 06:16; Admin Dose 40 MG; Start 06/27/17 at 18:00 Thiamine HCl (Vitamin B1) 100 mg DAILY PO Last administered on 07/03/17 08:47 ; Admin Dose 100 MG; Start 06/27/17 at 16:30 Acetaminophen/ Hydrocodone Bitart ([place] (7.5-325)) 1 tab Q6H PRN PO PAIN Last administered on 07/03/17 10:52; Admin Dose 1 TAB; Start 06/29/17 at 14:00 Ondansetron HCl (Zofran Inj) 4 mg Q6H PRN IV NAUSEA AND/OR VOMITING Last administered on 06/30/17 11:10; Admin Dose 4 MG; Start 06/30/17 at 11:04 Acetaminophen/ Hydrocodone Bitart ([place] (5/325)) 1 tab Q4H PRN PO PAIN Last administered on 07/02/17 15:13; Admin Dose 1 TAB; Start 06/30/17 at 20:30 Morphine Sulfate (morphine) 1.5 mg Q4H PRN IV PAIN Last administered on 08:49; Admin Dose 1.5 MG; Start 07/01/17 at 11:07 LESLI SOLOMON Jul 03, 2017 11:30
[2017-07-03] MEDS: POTASSIUM CHLORIDE 250 ML IVPB SCH ×2 (13:53→17:51)
[2017-07-03 14:29] VITALS: BP 124/68; RESP 16
[2017-07-03] MEDS: SPIRONOLACTONE 50 MG TAB PO SCH (20:10)
[2017-07-03 20:14] VITALS: BP 128/79; RESP 16
[2017-07-04 02:41] VITALS: BP 125/69; RESP 16
[2017-07-04] MEDS: HYDROCODONE/APAP (7.5/325) TAB PO PRN ×4 (02:44→23:21)
[2017-07-04] MEDS: PANTOPRAZOLE (EC) 40 MG TAB PO SCH ×2 (06:21→17:01)
[2017-07-04] MEDS: LACTULOSE 30ML CUP PO SCH ×4 (06:22→23:23)
[2017-07-04 06:35] LABS: ABNORMAL IP MESSAGE 1; HEMOGLOBIN 8.9 g/dl (14.0-18.0); MEAN CORPUSCULAR HEMOGLOBIN 31.6 pg (29.0-33.0); MEAN CORPUSCULAR HGB CONC 34.2 g/dl (32.0-37.0); MEAN CORPUSCULAR VOLUME 92.2 fl (82.0-101.0); MEAN PLATELET VOLUME 11.4 fl (7.4-10.4); PLATELET COUNT 213 10^3/UL (140-415); POSITIVE DIFF @See below; RED BLOOD COUNT 2.82 10^6/ul (4.70-6.10); RED CELL DISTRIBUTION WIDTH 26.1 % (11.5-14.5); WHITE BLOOD COUNT 48.9 10^3/ul (4.8-10.8)
[2017-07-04] MEDS: morphine 2 MG INJ IV PRN ×4 (06:56→21:06)
[2017-07-04 07:08] LABS: ALBUMIN 2.5 g/dl (3.3-4.9); BILIRUBIN,INDIRECT 2.7 mg/dl (0-1.1); BILIRUBIN,TOTAL 14.7 mg/dl (0.2-1.3); TOTAL PROTEIN 5.9 g/dl (6.1-8.1)
[2017-07-04 07:12] LABS: MAGNESIUM 1.9 mg/dl (1.7-2.5); PHOSPHORUS 2.7 mg/dl (2.5-4.9)
[2017-07-04 07:18] VITALS: BP 114/62; RESP 18
[2017-07-04] MEDS: FOLIC ACID 1 MG TAB PO SCH (08:35)
[2017-07-04] MEDS: FUROSEMIDE 20 MG TAB PO SCH (08:36)
[2017-07-04] MEDS: THIAMINE 100 MG TAB PO SCH (08:36)
[2017-07-04] MEDS: SUCRALFATE 1 GM TAB PO SCH ×4 (08:36→21:06)
[2017-07-04] MEDS: MULTIVITAMINS THERAPEUTIC TAB PO SCH (08:36)
[2017-07-04] MEDS: predniSOLONE (3 MG/ML PO SYG) PO SCH (08:36)
[2017-07-04] MEDS: SPIRONOLACTONE 50 MG TAB PO SCH ×2 (08:37→21:05)
[2017-07-04 08:59] LABS: ANISOCYTOSIS 3+ (0-0); EOSINOPHILS % (M) 3 % (0-7); HYPOCHROMASIA 1+ (0-0); MYELOCYTES % (M) 1 % (0-0); PLATELET ESTIMATE NORMAL; POIKILOCYTOSIS 2+ (0-0); POLYCHROMASIA 2+ (0-0)
[2017-07-04] MEDS: ONDANSETRON 4 MG INJ IV PRN (09:04)
--- NOTE | 2017-07-04 11:07 | PN ---
Date/Time of Note Date/Time of Note DATE: 07/04/17 TIME: 11:05 Assessment/Plan VTE Prophylaxis VTE Prophylaxis Intervention: SCD's Lines/Catheters IV Catheter Type (from [facility]): Saline Lock Urinary Cath still in place: No Assessment/Plan Chief Complaint/Hosp Course S: No acute events overnight, seen by GI team yesterday. O: VS (see below) PE: nad, lying in bed, jaundiced supple S1, S2, mrg lungs clear abd soft no LE edema B/L Assessment/Plan: 31 yo M with EtOH cirrhosis discharged recently after being treated for alcoholic hepatitis, readmitted 3 days later for abd pain 2/2 gastric ulcer for hematemesis. 1. abd pain - Hx of gastric ulcer, sp GI eval. no indication for repeat EGD as last was <2 weeks ago - cont BID PPI - cont home lactulose, lasix 2. ETOH hepatitis -still present with jaundice and significantly elevated LFTs - cont steroids -prednisolone 40 mg presently for alcoholic hepatitis in setting of markedly elevated Mardreys discriminant function (needs 28 days total, so until July 16, 2017, after that start tapering it) - f/u GI rec's 3. elevated WBC's - Etio likely to be 2/2 underlying liver disease, steroids, heme onc on the case, workup for leukemia or infectious source has been negative thus far. Again patient had bone marrow biopsy 4 days ago. -follow-up results of bone marrow biopsy to rule out any blood dyscrasias ( pending). 4. Dispo: sw working on getting patient back into rehab, although overall poor prognosis for patient given advanced alcoholic liver disease. Problems: Exam/Review of Systems Vital Signs Vitals Vital Signs Date Time Temp Pulse Resp B/P Pulse Ox O2 Delivery O2 Flow Rate FiO2 07/04/17 07:18 99.0 80 18 114/62 99 06/30/17 13:00 Room Air Intake and Output 07/03/17 07/03/17 07/04/17 14:59 22:59 06:59 Intake Total 2000 ml 4300 ml 1860 ml Output Total 1200 ml 1160 ml 1250 ml Balance 800 ml 3140 ml 610 ml Results Result Diagram: 07/04/17 0544 07/02/17 1330 Results 24 hrs Laboratory Tests Test 07/04/17 05:44 White Blood Count 48.9 H Red Blood Count 2.82 L Hemoglobin 8.9 L Hematocrit 26.0 L Mean Corpuscular Volume 92.2 Mean Corpuscular Hemoglobin 31.6 Mean Corpuscular Hemoglobin Concent 34.2 Red Cell Distribution Width 26.1 H Platelet Count 213 Mean Platelet Volume 11.4 H Neutrophils % Segmented Neutrophils % (Manual) 82 H Band Neutrophils % (Manual) 10 H Lymphocytes % Lymphocytes % (Manual) 4 L Monocytes % Eosinophils % Eosinophils % (Manual) 3 Basophils % Myelocytes % (Manual) 1 H Nucleated Red Blood Cells % 0.0 Neutrophils # Neutrophils # (Manual) 42.4 H Band Neutrophils # 4.8 H Absolute Lymphocytes (Manual) 1.9 Lymphocytes # Monocytes # Eosinophils # Basophils # Myelocytes # 0.4 H Nucleated Red Blood Cells # Platelet Estimate NORMAL Polychromasia 2+ Hypochromasia 1+ Poikilocytosis 2+ Anisocytosis 3+ Macrocytosis 3+ Phosphorus Level 2.7 Magnesium Level 1.9 Total Bilirubin 14.7 #H Direct Bilirubin 12.00 H Indirect Bilirubin 2.7 H Aspartate Amino Transf (AST/SGOT) 48 H Alanine Aminotransferase (ALT/SGPT) 55 Alkaline Phosphatase 316 H Total Protein 5.9 L Albumin 2.5 L Medications Medications Current Medications Acetaminophen (Tylenol Supp) 650 mg Q6H PRN [place] PAIN LEVEL 1-3 OR FEVER; Start 06/27/17 at 02:30 Sucralfate (Carafate) 1 gm QID PO Last administered on 07/04/17 08:36; Admin Dose 1 GM; Start 06/27/17 at 11:00 Prednisolone (Prelone (Ped)) 40 mg DAILY PO Last administered on 07/04/17 08: 36; Admin Dose 40 MG; Start 06/28/17 at 09:00 Folic Acid (Folic Acid) 1 mg DAILY PO Last administered on 07/04/17 08:35; Admin Dose 1 MG; Start 06/28/17 at 09:00 Furosemide (Lasix) 20 mg DAILY PO Last administered on 07/04/17 08:36; Admin Dose 20 MG; Start 06/27/17 at 16:30 Lactulose (Enulose) 30 gm Q6 PO Last administered on 07/04/17 06:22; Admin Dose 30 GM; Start 06/27/17 at 18:00 Multivitamins Therapeutic (Theragran) 1 tab DAILY PO Last administered on 07/04 08:36; Admin Dose 1 TAB; Start 06/27/17 at 16:30 Pantoprazole (Protonix Tab) 40 mg BID@ PO Last administered on 07/04/17 06:21; Admin Dose 40 MG; Start 06/27/17 at 18:00 Thiamine HCl (Vitamin B1) 100 mg DAILY PO Last administered on 07/04/17 08:36 ; Admin Dose 100 MG; Start 06/27/17 at 16:30 Acetaminophen/ Hydrocodone Bitart ([place] (7.5-325)) 1 tab Q6H PRN PO PAIN Last administered on 07/04/17 09:04; Admin Dose 1 TAB; Start 06/29/17 at 14:00 Ondansetron HCl (Zofran Inj) 4 mg Q6H PRN IV NAUSEA AND/OR VOMITING Last administered on 07/04/17 09:04; Admin Dose 4 MG; Start 06/30/17 at 11:04 Acetaminophen/ Hydrocodone Bitart ([place] (5/325)) 1 tab Q4H PRN PO PAIN Last administered on 07/02/17 15:13; Admin Dose 1 TAB; Start 06/30/17 at 20:30 Morphine Sulfate (morphine) 1.5 mg Q4H PRN IV PAIN Last administered on 11:01; Admin Dose 1.5 MG; Start 07/01/17 at 11:07 Spironolactone (Aldactone) 100 mg BID PO Last administered on 07/04/17 08:37 ; Admin Dose 100 MG; Start 07/03/17 at 21:00 HEATHER GORDON 25, 2017 11:07
--- NOTE | 2017-07-04 12:22 | PN ---
Date/Time of Note Date/Time of Note DATE: 07/04/17 TIME: 12:21 Assessment/Plan VTE Prophylaxis VTE Prophylaxis Intervention: SCD's Lines/Catheters IV Catheter Type (from [facility]): Saline Lock Urinary Cath still in place: No Assessment/Plan Chief Complaint/Hosp Course Chief Complaint/Hosp Course Assessment: Episode of mild hematemesis/clinically insignificant so far History of bleeding gastric ulcer post Endo Clip placement History of moderate-sized esophageal varices History of severe portal hypertensive gastropathy History of severe alcoholic hepatitis with deep jaundice and severe leukocytosis Severe leukocytosis no evidence of septic foci May be related to alcoholic hepatitis Should consider also other possibilities i.e. myeloproliferative disorder Chronic alcoholism Plan: Continue PPI therapy plus Carafate Monitor H&H, transfuse as needed Continue steroids for alcoholic hepatitis for a total of 28 days Bone marrow bx pending tolerating Aldactone well Pt seen in collaboration with Dr. Ospina . Subjective: Course reviewed with nursing staff Patient interviewed and examined All labs, imaging and other results reviewed The patient continues to work with PT, continue steroid therapy for a total of 28 days. Patient appears stable from GI viewpoint outpatient follow-up on current regimen. Physical exam: General: well developed, well nourished, alert and oriented x3 , in no acute distress Skin: Deeply jaundiced. No lesions, positive stigmata chronic liver disease, no evidence of bleeding diathesis Lymphatic: No palpable lymphadenopathy HEENT: No lesions Cardiovascular: Heart: Regular rate and rhythm, Respiratory: Lungs clear to auscultation and percussion, no wheezing, no rubs Gastrointestinal and Liver: Abdomen: Soft, non tenderness, not distended, no hernias, no masses, ascites, no guarding, no rebound tenderness, normoactive bowel sounds. Extremities: BLE edema, improved Psychiatric: Alert and oriented x3, mood/affect/judgment adequate Diagnostic Studies: Available data and images were reviewed personally. See reports. Significant results and findings are addressed here or in the assessment and plan.. Problems: Exam/Review of Systems Vital Signs Vitals Vital Signs Date Time Temp Pulse Resp B/P Pulse Ox O2 Delivery O2 Flow Rate FiO2 07/04/17 07:18 99.0 80 18 114/62 99 06/30/17 13:00 Room Air Intake and Output 07/03/17 07/03/17 07/04/17 15:00 23:00 07:00 Intake Total 2000 ml 4300 ml 1860 ml Output Total 1200 ml 1160 ml 1250 ml Balance 800 ml 3140 ml 610 ml Results Result Diagram: 07/04/17 0544 07/02/17 1330 Results 24 hrs Laboratory Tests Test 07/04/17 05:44 White Blood Count 48.9 H Red Blood Count 2.82 L Hemoglobin 8.9 L Hematocrit 26.0 L Mean Corpuscular Volume 92.2 Mean Corpuscular Hemoglobin 31.6 Mean Corpuscular Hemoglobin Concent 34.2 Red Cell Distribution Width 26.1 H Platelet Count 213 Mean Platelet Volume 11.4 H Neutrophils % Segmented Neutrophils % (Manual) 82 H Band Neutrophils % (Manual) 10 H Lymphocytes % Lymphocytes % (Manual) 4 L Monocytes % Eosinophils % Eosinophils % (Manual) 3 Basophils % Myelocytes % (Manual) 1 H Nucleated Red Blood Cells % 0.0 Neutrophils # Neutrophils # (Manual) 42.4 H Band Neutrophils # 4.8 H Absolute Lymphocytes (Manual) 1.9 Lymphocytes # Monocytes # Eosinophils # Basophils # Myelocytes # 0.4 H Nucleated Red Blood Cells # Platelet Estimate NORMAL Polychromasia 2+ Hypochromasia 1+ Poikilocytosis 2+ Anisocytosis 3+ Macrocytosis 3+ Phosphorus Level 2.7 Magnesium Level 1.9 Total Bilirubin 14.7 #H Direct Bilirubin 12.00 H Indirect Bilirubin 2.7 H Aspartate Amino Transf (AST/SGOT) 48 H Alanine Aminotransferase (ALT/SGPT) 55 Alkaline Phosphatase 316 H Total Protein 5.9 L Albumin 2.5 L Medications Medications Current Medications Acetaminophen (Tylenol Supp) 650 mg Q6H PRN [place] PAIN LEVEL 1-3 OR FEVER; Start 06/27/17 at 02:30 Sucralfate (Carafate) 1 gm QID PO Last administered on 07/04/17 08:36; Admin Dose 1 GM; Start 06/27/17 at 11:00 Prednisolone (Prelone (Ped)) 40 mg DAILY PO Last administered on 07/04/17 08: 36; Admin Dose 40 MG; Start 06/28/17 at 09:00 Folic Acid (Folic Acid) 1 mg DAILY PO Last administered on 07/04/17 08:35; Admin Dose 1 MG; Start 06/28/17 at 09:00 Furosemide (Lasix) 20 mg DAILY PO Last administered on 07/04/17 08:36; Admin Dose 20 MG; Start 06/27/17 at 16:30 Lactulose (Enulose) 30 gm Q6 PO Last administered on 07/04/17 06:22; Admin Dose 30 GM; Start 06/27/17 at 18:00 Multivitamins Therapeutic (Theragran) 1 tab DAILY PO Last administered on 07/04 08:36; Admin Dose 1 TAB; Start 06/27/17 at 16:30 Pantoprazole (Protonix Tab) 40 mg BID@ PO Last administered on 07/04/17 06:21; Admin Dose 40 MG; Start 06/27/17 at 18:00 Thiamine HCl (Vitamin B1) 100 mg DAILY PO Last administered on 07/04/17 08:36 ; Admin Dose 100 MG; Start 06/27/17 at 16:30 Acetaminophen/ Hydrocodone Bitart ([place] (7.5-325)) 1 tab Q6H PRN PO PAIN Last administered on 07/04/17 09:04; Admin Dose 1 TAB; Start 06/29/17 at 14:00 Ondansetron HCl (Zofran Inj) 4 mg Q6H PRN IV NAUSEA AND/OR VOMITING Last administered on 07/04/17 09:04; Admin Dose 4 MG; Start 06/30/17 at 11:04 Acetaminophen/ Hydrocodone Bitart ([place] (5/325)) 1 tab Q4H PRN PO PAIN Last administered on 07/02/17 15:13; Admin Dose 1 TAB; Start 06/30/17 at 20:30 Morphine Sulfate (morphine) 1.5 mg Q4H PRN IV PAIN Last administered on 11:01; Admin Dose 1.5 MG; Start 07/01/17 at 11:07 Spironolactone (Aldactone) 100 mg BID PO Last administered on 07/04/17 08:37 ; Admin Dose 100 MG; Start 07/03/17 at 21:00 LESLI SOLOMON Jul 04, 2017 12:22
[2017-07-04 13:53] VITALS: BP 113/84; RESP 18
[2017-07-04 20:00] VITALS: BP 120/60; RESP 16
[2017-07-05] MEDS: morphine 2 MG INJ IV PRN ×5 (01:17→19:32)
[2017-07-05 01:59] VITALS: BP 113/55; RESP 14
[2017-07-05] MEDS: LACTULOSE 30ML CUP PO SCH ×3 (05:21→17:25)
[2017-07-05] MEDS: PANTOPRAZOLE (EC) 40 MG TAB PO SCH ×2 (05:21→17:25)
[2017-07-05 05:46] LABS: ABNORMAL IP MESSAGE 1; HEMATOCRIT 26.7 % (42.0-52.0); HEMOGLOBIN 9.3 g/dl (14.0-18.0); MEAN CORPUSCULAR HEMOGLOBIN 32.3 pg (29.0-33.0); MEAN CORPUSCULAR HGB CONC 34.8 g/dl (32.0-37.0); MEAN CORPUSCULAR VOLUME 92.7 fl (82.0-101.0); MEAN PLATELET VOLUME 12.1 fl (7.4-10.4); POSITIVE DIFF @See below; RED BLOOD COUNT 2.88 10^6/ul (4.70-6.10); RED CELL DISTRIBUTION WIDTH 26.2 % (11.5-14.5); WHITE BLOOD COUNT 53.5 10^3/ul (4.8-10.8)
[2017-07-05 07:54] VITALS: BP 111/60; RESP 20
[2017-07-05] MEDS: SUCRALFATE 1 GM TAB PO SCH ×4 (08:40→21:12)
[2017-07-05] MEDS: THIAMINE 100 MG TAB PO SCH (08:40)
[2017-07-05] MEDS: FOLIC ACID 1 MG TAB PO SCH (08:43)
[2017-07-05] MEDS: FUROSEMIDE 20 MG TAB PO SCH (08:43)
[2017-07-05] MEDS: MULTIVITAMINS THERAPEUTIC TAB PO SCH (08:44)
[2017-07-05] MEDS: SPIRONOLACTONE 50 MG TAB PO SCH ×2 (08:45→21:12)
[2017-07-05] MEDS: HYDROCODONE/APAP (5/325) TAB PO PRN (08:57)
[2017-07-05 09:31] LABS: ANISOCYTOSIS 3+ (0-0); LYMPHOCYTES # 2.1 10^3/ul (0.8-2.9); MONOCYTE # 1.1 10^3/ul (0.3-0.9); MONOCYTES % (M) 2 % (0-11)
[2017-07-05 09:32] LABS: BURR CELLS 2+; HYPOCHROMASIA 2+ (0-0); MICROCYTOSIS 1+ (0-0); POIKILOCYTOSIS 2+ (0-0); TARGET CELLS 2+ (0-0)
[2017-07-05 09:34] LABS: OVALOCYTES 1+ (0-0); PLATELET COUNT 217 10^3/UL (140-415)
[2017-07-05] MEDS: predniSOLONE (3 MG/ML PO SYG) PO SCH (09:45)
--- NOTE | 2017-07-05 11:34 | PN ---
Date/Time of Note Date/Time of Note DATE: 07/05/17 TIME: 11:33 Assessment/Plan VTE Prophylaxis VTE Prophylaxis Intervention: SCD's Lines/Catheters [facility] Saline Lock Urinary Cath still in place: No Assessment/Plan Chief Complaint/Hosp Course S: No acute events overnight, seen by GI team yesterday. O: VS (see below) PE: nad, lying in bed, jaundiced supple S1, S2, mrg lungs clear abd soft no LE edema B/L Assessment/Plan: 31 yo M with EtOH cirrhosis discharged recently after being treated for alcoholic hepatitis, readmitted 3 days later for abd pain 2/2 gastric ulcer for hematemesis. 1. abd pain - Hx of gastric ulcer, sp GI eval. no indication for repeat EGD as last was <2 weeks ago - cont BID PPI - cont home lactulose, lasix 2. ETOH hepatitis -still present with jaundice and significantly elevated LFTs - cont steroids -prednisolone 40 mg presently for alcoholic hepatitis in setting of markedly elevated Mardreys discriminant function (needs 28 days total , so continue until July 16, 2017, after that start tapering it) - f/u GI rec's 3. elevated WBC's - Etio likely to be 2/2 underlying liver disease, steroids, heme onc on the case, workup for leukemia or infectious source has been negative thus far. Again patient had bone marrow biopsy 4 days ago. -follow-up results of bone marrow biopsy to rule out any blood dyscrasias ( pending). 4. Dispo: sw working on getting patient back into rehab, although overall poor prognosis for patient given advanced alcoholic liver disease. Problems: Exam/Review of Systems Vital Signs Vitals Vital Signs Date Time Temp Pulse Resp B/P Pulse Ox O2 Delivery O2 Flow Rate FiO2 07/05/17 07:54 97.4 98 20 111/60 98 Intake and Output 07/04/17 07/04/17 07/05/17 14:59 22:59 06:59 Intake Total 2014 ml 1740 ml Output Total 2600 ml 1080 ml Balance -586 ml 660 ml Results Result Diagram: 07/05/17 0508 07/02/17 1330 Results 24 hrs Laboratory Tests Test 07/05/17 05:08 07/05/17 05:23 White Blood Count 53.5 H Red Blood Count 2.88 L Hemoglobin 9.3 L Hematocrit 26.7 L Mean Corpuscular Volume 92.7 Mean Corpuscular Hemoglobin 32.3 Mean Corpuscular Hemoglobin Concent 34.8 Red Cell Distribution Width 26.2 H Platelet Count 217 Mean Platelet Volume 12.1 H Neutrophils % Segmented Neutrophils % (Manual) 88 H Band Neutrophils % (Manual) 6 H Lymphocytes % Lymphocytes % (Manual) 4 L Monocytes % Monocytes % (Manual) 2 Eosinophils % Basophils % Nucleated Red Blood Cells % 0.0 Neutrophils # Neutrophils # (Manual) 48.8 H Band Neutrophils # 3.2 H Absolute Lymphocytes (Manual) 2.1 Lymphocytes # 2.1 Monocytes # 1.1 H Absolute Monocytes (Manual) 1.0 H Eosinophils # Basophils # Nucleated Red Blood Cells # Hypochromasia 2+ Poikilocytosis 2+ Anisocytosis 3+ Microcytosis 1+ Macrocytosis 1+ Target Cells 2+ Ovalocytes 1+ Lab Scanned Report BLOOD TRANSFUSION Medications Medications Current Medications Acetaminophen (Tylenol Supp) 650 mg Q6H PRN [place] PAIN LEVEL 1-3 OR FEVER; Start 06/27/17 at 02:30 Sucralfate (Carafate) 1 gm QID PO Last administered on 07/05/17 08:40; Admin Dose 1 GM; Start 06/27/17 at 11:00 Prednisolone (Prelone (Ped)) 40 mg DAILY PO Last administered on 07/05/17 09: 45; Admin Dose 40 MG; Start 06/28/17 at 09:00 Folic Acid (Folic Acid) 1 mg DAILY PO Last administered on 07/05/17 08:43; Admin Dose 1 MG; Start 06/28/17 at 09:00 Furosemide (Lasix) 20 mg DAILY PO Last administered on 07/05/17 08:43; Admin Dose 20 MG; Start 06/27/17 at 16:30 Lactulose (Enulose) 30 gm Q6 PO Last administered on 07/05/17 05:21; Admin Dose 30 GM; Start 06/27/17 at 18:00 Multivitamins Therapeutic (Theragran) 1 tab DAILY PO Last administered on 07/05 08:44; Admin Dose 1 TAB; Start 06/27/17 at 16:30 Pantoprazole (Protonix Tab) 40 mg BID@18 PO Last administered on 07/05/17 05:21; Admin Dose 40 MG; Start 06/27/17 at 18:00 Thiamine HCl (Vitamin B1) 100 mg DAILY PO Last administered on 07/05/17 08:40 ; Admin Dose 100 MG; Start 06/27/17 at 16:30 Acetaminophen/ Hydrocodone Bitart ([place] (7.5-325)) 1 tab Q6H PRN PO PAIN Last administered on 07/04/17 23:21; Admin Dose 1 TAB; Start 06/29/17 at 14:00 Ondansetron HCl (Zofran Inj) 4 mg Q6H PRN IV NAUSEA AND/OR VOMITING Last administered on 07/04/17 09:04; Admin Dose 4 MG; Start 06/30/17 at 11:04 Acetaminophen/ Hydrocodone Bitart ([place] (5/325)) 1 tab Q4H PRN PO PAIN Last administered on 07/05/17 08:57; Admin Dose 1 TAB; Start 06/30/17 at 20:30 Morphine Sulfate (morphine) 1.5 mg Q4H PRN IV PAIN Last administered on 10:31; Admin Dose 1.5 MG; Start 07/01/17 at 11:07 Spironolactone (Aldactone) 100 mg BID PO Last administered on 07/05/17 08:45 ; Admin Dose 100 MG; Start 07/03/17 at 21:00 HEATHER GORDON 26, 2017 11:34
--- NOTE | 2017-07-05 11:45 | PN ---
Date/Time of Note Date/Time of Note DATE: 07/05/17 TIME: 11:43 Assessment/Plan VTE Prophylaxis VTE Prophylaxis Intervention: SCD's Lines/Catheters IV Catheter Type (from [facility]): Saline Lock Urinary Cath still in place: No Assessment/Plan Chief Complaint/Hosp Course Chief Complaint/Hosp Course Assessment: Episode of mild hematemesis/clinically insignificant so far History of bleeding gastric ulcer post Endo Clip placement History of moderate-sized esophageal varices History of severe portal hypertensive gastropathy History of severe alcoholic hepatitis with deep jaundice and severe leukocytosis Severe leukocytosis no evidence of septic foci May be related to alcoholic hepatitis Should consider also other possibilities i.e. myeloproliferative disorder Chronic alcoholism Plan: Continue PPI therapy plus Carafate Monitor H&H, transfuse as needed Continue steroids for alcoholic hepatitis for a total of 28 days Bone marrow bx pending tolerating Aldactone well Pt seen in collaboration with Dr. Ospina . Subjective: Course reviewed with nursing staff Patient interviewed and examined All labs, imaging and other results reviewed The patient continues to work with PT, continue steroid therapy for a total of 28 days. Patient appears stable from GI viewpoint outpatient follow-up on current regimen. Edema continues to improve with current medication regimen. Will continue to monitor. Physical exam: General: well developed, well nourished, alert and oriented x3 , in no acute distress Skin: Deeply jaundiced. No lesions, positive stigmata chronic liver disease, no evidence of bleeding diathesis Lymphatic: No palpable lymphadenopathy HEENT: No lesions Cardiovascular: Heart: Regular rate and rhythm, Respiratory: Lungs clear to auscultation and percussion, no wheezing, no rubs Gastrointestinal and Liver: Abdomen: Soft, non tenderness, not distended, no hernias, no masses, ascites, no guarding, no rebound tenderness, normoactive bowel sounds. Extremities: BLE edema, improved Psychiatric: Alert and oriented x3, mood/affect/judgment adequate Diagnostic Studies: Available data and images were reviewed personally. See reports. Significant results and findings are addressed here or in the assessment and plan.. Problems: Exam/Review of Systems Vital Signs Vitals Vital Signs Date Time Temp Pulse Resp B/P Pulse Ox O2 Delivery O2 Flow Rate FiO2 07/05/17 07:54 97.4 98 20 111/60 98 Intake and Output 07/04/17 07/04/17 07/05/17 14:59 22:59 06:59 Intake Total 2014 ml 1740 ml Output Total 2600 ml 1080 ml Balance -586 ml 660 ml Results Result Diagram: 07/05/17 0508 07/02/17 1330 Results 24 hrs Laboratory Tests Test 07/05/17 05:08 07/05/17 05:23 White Blood Count 53.5 H Red Blood Count 2.88 L Hemoglobin 9.3 L Hematocrit 26.7 L Mean Corpuscular Volume 92.7 Mean Corpuscular Hemoglobin 32.3 Mean Corpuscular Hemoglobin Concent 34.8 Red Cell Distribution Width 26.2 H Platelet Count 217 Mean Platelet Volume 12.1 H Neutrophils % Segmented Neutrophils % (Manual) 88 H Band Neutrophils % (Manual) 6 H Lymphocytes % Lymphocytes % (Manual) 4 L Monocytes % Monocytes % (Manual) 2 Eosinophils % Basophils % Nucleated Red Blood Cells % 0.0 Neutrophils # Neutrophils # (Manual) 48.8 H Band Neutrophils # 3.2 H Absolute Lymphocytes (Manual) 2.1 Lymphocytes # 2.1 Monocytes # 1.1 H Absolute Monocytes (Manual) 1.0 H Eosinophils # Basophils # Nucleated Red Blood Cells # Hypochromasia 2+ Poikilocytosis 2+ Anisocytosis 3+ Microcytosis 1+ Macrocytosis 1+ Target Cells 2+ Ovalocytes 1+ Lab Scanned Report BLOOD TRANSFUSION Medications Medications Current Medications Acetaminophen (Tylenol Supp) 650 mg Q6H PRN [place] PAIN LEVEL 1-3 OR FEVER; Start 06/27/17 at 02:30 Sucralfate (Carafate) 1 gm QID PO Last administered on 07/05/17 08:40; Admin Dose 1 GM; Start 06/27/17 at 11:00 Prednisolone (Prelone (Ped)) 40 mg DAILY PO Last administered on 07/05/17 09: 45; Admin Dose 40 MG; Start 06/28/17 at 09:00 Folic Acid (Folic Acid) 1 mg DAILY PO Last administered on 07/05/17 08:43; Admin Dose 1 MG; Start 06/28/17 at 09:00 Furosemide (Lasix) 20 mg DAILY PO Last administered on 07/05/17 08:43; Admin Dose 20 MG; Start 06/27/17 at 16:30 Lactulose (Enulose) 30 gm Q6 PO Last administered on 07/05/17 05:21; Admin Dose 30 GM; Start 06/27/17 at 18:00 Multivitamins Therapeutic (Theragran) 1 tab DAILY PO Last administered on 07/05 08:44; Admin Dose 1 TAB; Start 06/27/17 at 16:30 Pantoprazole (Protonix Tab) 40 mg BID@06,18 PO Last administered on 07/05/17 05:21; Admin Dose 40 MG; Start 06/27/17 at 18:00 Thiamine HCl (Vitamin B1) 100 mg DAILY PO Last administered on 07/05/17 08:40 ; Admin Dose 100 MG; Start 06/27/17 at 16:30 Acetaminophen/ Hydrocodone Bitart ([place] (7.5-325)) 1 tab Q6H PRN PO PAIN Last administered on 07/04/17 23:21; Admin Dose 1 TAB; Start 06/29/17 at 14:00 Ondansetron HCl (Zofran Inj) 4 mg Q6H PRN IV NAUSEA AND/OR VOMITING Last administered on 07/04/17 09:04; Admin Dose 4 MG; Start 06/30/17 at 11:04 Morphine Sulfate (morphine) 1.5 mg Q4H PRN IV PAIN Last administered on 10:31; Admin Dose 1.5 MG; Start 07/01/17 at 11:07 Spironolactone (Aldactone) 100 mg BID PO Last administered on 07/05/17 08:45 ; Admin Dose 100 MG; Start 07/03/17 at 21:00 LESLI SOLOMON Jul 05, 2017 11:45 LESLI SOLOMON Jul 05, 2017 11:45
[2017-07-05] MEDS: ONDANSETRON 4 MG INJ IV PRN (12:09)
[2017-07-05] MEDS: HYDROCODONE/APAP (7.5/325) TAB PO PRN ×2 (13:40→21:12)
[2017-07-05 14:12] VITALS: BP 126/61; RESP 20
[2017-07-05 21:13] VITALS: BP 125/60; PULSE 77; RESP 18
[2017-07-06] MEDS: morphine 2 MG INJ IV PRN ×4 (00:04→14:27)
[2017-07-06] MEDS: PANTOPRAZOLE (EC) 40 MG TAB PO SCH ×2 (05:26→17:04)
[2017-07-06] MEDS: LACTULOSE 30ML CUP PO SCH ×5 (05:26→23:19)
[2017-07-06 06:40] LABS: ABNORMAL IP MESSAGE 1; HEMATOCRIT 26.9 % (42.0-52.0); HEMOGLOBIN 9.1 g/dl (14.0-18.0); MEAN CORPUSCULAR HEMOGLOBIN 32.3 pg (29.0-33.0); MEAN CORPUSCULAR HGB CONC 33.8 g/dl (32.0-37.0); MEAN CORPUSCULAR VOLUME 95.4 fl (82.0-101.0); MEAN PLATELET VOLUME 12.5 fl (7.4-10.4); PLATELET COUNT 194 10^3/UL (140-415); POSITIVE DIFF @See below; RED BLOOD COUNT 2.82 10^6/ul (4.70-6.10); RED CELL DISTRIBUTION WIDTH 26.5 % (11.5-14.5)
[2017-07-06 07:46] VITALS: BP 118/66; RESP 20
[2017-07-06] MEDS: HYDROCODONE/APAP (7.5/325) TAB PO PRN (08:25)
[2017-07-06] MEDS: ONDANSETRON 4 MG INJ IV PRN ×2 (08:25→17:04)
[2017-07-06 09:33] LABS: ANISOCYTOSIS 3+ (0-0); EOSINOPHILS % (M) 2 % (0-7); GIANT THROMBO% (M) 1 % (0-0); MONOCYTES % (M) 5 % (0-11); PLATELET ESTIMATE NORMAL; POIKILOCYTOSIS 3+ (0-0); POLYCHROMASIA 3+ (0-0)
[2017-07-06] MEDS: SPIRONOLACTONE 50 MG TAB PO SCH ×2 (09:45→20:03)
[2017-07-06] MEDS: THIAMINE 100 MG TAB PO SCH (09:45)
[2017-07-06] MEDS: FUROSEMIDE 20 MG TAB PO SCH (09:45)
[2017-07-06] MEDS: SUCRALFATE 1 GM TAB PO SCH ×4 (09:45→20:03)
[2017-07-06] MEDS: MULTIVITAMINS THERAPEUTIC TAB PO SCH (09:46)
[2017-07-06] MEDS: predniSOLONE (3 MG/ML PO SYG) PO SCH (09:46)
[2017-07-06] MEDS: FOLIC ACID 1 MG TAB PO SCH (09:46)
[2017-07-06 13:54] VITALS: BP 117/61; RESP 20
[2017-07-06] MEDS ORDERED: oxyCODONE 5 MG TAB PO PRN (16:00)
[2017-07-06] MEDS: morphine LIQ (10 MG/5 ML) CUP PO PRN ×3 (16:19→23:19)
--- NOTE | 2017-07-06 17:03 | PN ---
Date/Time of Note Date/Time of Note DATE: 07/06/17 TIME: 17:01 Assessment/Plan VTE Prophylaxis VTE Prophylaxis Intervention: LMWH Lines/Catheters IV Catheter Type (from Nrs): Saline Lock Urinary Cath still in place: No Assessment/Plan Chief Complaint/Hosp Course 32 yo male with severe alcoholic hepatitis 2/2 alcohol use d/o Alcoholic hepatitis: - Steroids x 4 weeks - Avoid etoh - Lactuolose, diuretics for edema/ascites - Transition to PO pain meds from IV Leukocytosis: - Await BM biospy pathology Discharge when ready to go Problems: Subjective 24 Hr Interval Summary Free Text/Dictation Doing well, pain controlled on IV morphine Discussed at great lenght his need to avoid etoh Agrees to transition off of IV opiates Exam/Review of Systems Vital Signs Vitals Vital Signs Date Time Temp Pulse Resp B/P Pulse Ox O2 Delivery O2 Flow Rate FiO2 07/06/17 13:54 98.5 89 20 117/61 98 07/05/17 21:13 Room Air Intake and Output 07/05/17 07/05/17 07/06/17 15:00 23:00 07:00 Intake Total 1620 ml 800 ml Output Total 800 ml Balance 820 ml 800 ml Exam Very jaundice Nomral mentation, no HE Constitutional: alert, oriented, well developed Psych: nl mood/affect, no complaints Head: atraumatic, normocephalic Eyes: EOMI, PERRL, nl conjunctiva, nl lids, nl sclera ENMT: nl external ears & nose, nl lips & teeth, nl nasal mucosa & septum Neck: non-tender, supple Respiratory: clear to auscultation, normal air movement Cardiovascular: nl pulses, regular rate and rhythm Gastrointestinal: nl liver, spleen, non-tender, soft Musculoskeletal: nl extremities to inspection, nl gait and stance Extremities: normal pulses 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: [employer] II-XII intact, nl mental status, nl speech, nl strength Skin: nl turgor, No rash or lesions Lymph: nl lymph nodes Results Result Diagram: 07/06/17 0556 07/02/17 1330 Results 24 hrs Laboratory Tests Test 07/06/17 05:56 White Blood Count 51.0 H Red Blood Count 2.82 L Hemoglobin 9.1 L Hematocrit 26.9 L Mean Corpuscular Volume 95.4 Mean Corpuscular Hemoglobin 32.3 Mean Corpuscular Hemoglobin Concent 33.8 Red Cell Distribution Width 26.5 H Platelet Count 194 Mean Platelet Volume 12.5 H Neutrophils % Segmented Neutrophils % (Manual) 76 Band Neutrophils % (Manual) 11 H Lymphocytes % Lymphocytes % (Manual) 7 L Monocytes % Monocytes % (Manual) 5 Eosinophils % Eosinophils % (Manual) 2 Basophils % Nucleated Red Blood Cells % 0.0 Neutrophils # Neutrophils # (Manual) 41.6 H Band Neutrophils # 5.6 H Absolute Lymphocytes (Manual) 3.5 H Lymphocytes # Monocytes # Absolute Monocytes (Manual) 2.5 H Eosinophils # Basophils # Nucleated Red Blood Cells # Platelet Estimate NORMAL Giant Platelets 1 H Polychromasia 3+ Poikilocytosis 3+ Anisocytosis 3+ Macrocytosis 3+ Medications Medications Current Medications Acetaminophen (Tylenol Supp) 650 mg Q6H PRN [place] PAIN LEVEL 1-3 OR FEVER; Start 06/27/17 at 02:30 Sucralfate (Carafate) 1 gm QID PO Last administered on 07/06/17 16:19; Admin Dose 1 GM; Start 06/27/17 at 11:00 Prednisolone (Prelone (Ped)) 40 mg DAILY PO Last administered on 07/06/17 09: 46; Admin Dose 40 MG; Start 06/28/17 at 09:00 Folic Acid (Folic Acid) 1 mg DAILY PO Last administered on 07/06/17 09:46; Admin Dose 1 MG; Start 06/28/17 at 09:00 Furosemide (Lasix) 20 mg DAILY PO Last administered on 07/06/17 09:45; Admin Dose 20 MG; Start 06/27/17 at 16:30 Lactulose (Enulose) 30 gm Q6 PO Last administered on 07/06/17 12:25; Admin Dose 30 GM; Start 06/27/17 at 18:00 Multivitamins Therapeutic (Theragran) 1 tab DAILY PO Last administered on 07/06 09:46; Admin Dose 1 TAB; Start 06/27/17 at 16:30 Pantoprazole (Protonix Tab) 40 mg BID@,18 PO Last administered on 07/06/17 05:26; Admin Dose 40 MG; Start 06/27/17 at 18:00 Thiamine HCl (Vitamin B1) 100 mg DAILY PO Last administered on 07/06/17 09:45 ; Admin Dose 100 MG; Start 06/27/17 at 16:30 Ondansetron HCl (Zofran Inj) 4 mg Q6H PRN IV NAUSEA AND/OR VOMITING Last administered on 07/06/17 08:25; Admin Dose 4 MG; Start 06/30/17 at 11:04 Spironolactone (Aldactone) 100 mg BID PO Last administered on 07/06/17 09:45 ; Admin Dose 100 MG; Start 07/03/17 at 21:00 Oxycodone HCl (Roxicodone) 5 mg Q4H PRN PO PAIN; Start 07/06/17 at 16:00 Morphine Sulfate (morphine) 5 mg Q3H PRN PO PAIN Last administered on 16:19; Admin Dose 5 MG; Start 07/06/17 at 16:00 SOFIA CURRIE MD Jul 06, 2017 17:03
--- NOTE | 2017-07-06 18:00 | PN ---
Date/Time of Note Date/Time of Note DATE: 07/06/17 TIME: 17:53 Assessment/Plan VTE Prophylaxis VTE Prophylaxis Intervention: ambulation Lines/Catheters [facility]from [facility] Saline Lock Urinary Cath still in place: No Assessment/Plan Chief Complaint/Hosp Course Assessment: Resolved hematemesis History of bleeding gastric ulcer post Endo Clip placement History of moderate-sized esophageal varices History of severe portal hypertensive gastropathy History of severe alcoholic hepatitis with deep jaundice and severe leukocytosis Severe leukocytosis no evidence of septic foci May be related to alcoholic hepatitis Chronic alcoholism Plan: Continue PPI therapy plus Carafate Monitor H&H, transfuse as needed for Hgb<7.5 Continue steroids for alcoholic hepatitis for a total of 28 days Bone marrow bx pending tolerating Aldactone well Pt seen in collaboration with Dr. Ospina . Subjective: Course reviewed with nursing staff Patient interviewed and examined All labs, imaging and other results reviewed The patient continues to work with PT, continue steroid therapy for a total of 28 days. Patient appears stable from GI viewpoint outpatient follow-up on current regimen. Edema continues to improve with current medication regimen. Will continue to monitor. Physical exam: General: well developed, well nourished, alert and oriented x3 , in no acute distress Skin: Deeply jaundiced. No lesions, positive stigmata chronic liver disease, no evidence of bleeding diathesis Lymphatic: No palpable lymphadenopathy HEENT: No lesions Cardiovascular: Heart: Regular rate and rhythm, Respiratory: Lungs clear to auscultation and percussion, no wheezing, no rubs Gastrointestinal and Liver: Abdomen: Soft, non tenderness, not distended, no hernias, no masses, ascites, no guarding, no rebound tenderness, normoactive bowel sounds. Extremities: BLE pitting edema. Psychiatric: Alert and oriented x3, mood/affect/judgment adequate Diagnostic Studies: Available data and images were reviewed personally. See reports. Significant results and findings are addressed here or in the assessment and plan.. Problems: Exam/Review of Systems Vital Signs Vitals Vital Signs Date Time Temp Pulse Resp B/P Pulse Ox O2 Delivery O2 Flow Rate FiO2 07/06/17 13:54 98.5 89 20 117/61 98 07/05/17 21:13 Room Air Intake and Output 07/05/17 07/05/17 07/06/17 14:59 22:59 06:59 Intake Total 1620 ml 800 ml Output Total 800 ml Balance 820 ml 800 ml Results Result Diagram: 07/06/17 0556 07/02/17 1330 Results 24 hrs Laboratory Tests Test 07/06/17 05:56 White Blood Count 51.0 H Red Blood Count 2.82 L Hemoglobin 9.1 L Hematocrit 26.9 L Mean Corpuscular Volume 95.4 Mean Corpuscular Hemoglobin 32.3 Mean Corpuscular Hemoglobin Concent 33.8 Red Cell Distribution Width 26.5 H Platelet Count 194 Mean Platelet Volume 12.5 H Neutrophils % Segmented Neutrophils % (Manual) 76 Band Neutrophils % (Manual) 11 H Lymphocytes % Lymphocytes % (Manual) 7 L Monocytes % Monocytes % (Manual) 5 Eosinophils % Eosinophils % (Manual) 2 Basophils % Nucleated Red Blood Cells % 0.0 Neutrophils # Neutrophils # (Manual) 41.6 H Band Neutrophils # 5.6 H Absolute Lymphocytes (Manual) 3.5 H Lymphocytes # Monocytes # Absolute Monocytes (Manual) 2.5 H Eosinophils # Basophils # Nucleated Red Blood Cells # Platelet Estimate NORMAL Giant Platelets 1 H Polychromasia 3+ Poikilocytosis 3+ Anisocytosis 3+ Macrocytosis 3+ Medications Medications Current Medications Acetaminophen (Tylenol Supp) 650 mg Q6H PRN [place] PAIN LEVEL 1-3 OR FEVER; Start 06/27/17 at 02:30 Sucralfate (Carafate) 1 gm QID PO Last administered on 07/06/17 16:19; Admin Dose 1 GM; Start 06/27/17 at 11:00 Prednisolone (Prelone (Ped)) 40 mg DAILY PO Last administered on 07/06/17 09: 46; Admin Dose 40 MG; Start 06/28/17 at 09:00 Folic Acid (Folic Acid) 1 mg DAILY PO Last administered on 07/06/17 09:46; Admin Dose 1 MG; Start 06/28/17 at 09:00 Furosemide (Lasix) 20 mg DAILY PO Last administered on 07/06/17 09:45; Admin Dose 20 MG; Start 06/27/17 at 16:30 Lactulose (Enulose) 30 gm Q6 PO Last administered on 07/06/17 17:06; Admin Dose 30 GM; Start 06/27/17 at 18:00 Multivitamins Therapeutic (Theragran) 1 tab DAILY PO Last administered on 07/06 09:46; Admin Dose 1 TAB; Start 06/27/17 at 16:30 Pantoprazole (Protonix Tab) 40 mg BID@,18 PO Last administered on 07/06/17 17:04; Admin Dose 40 MG; Start 06/27/17 at 18:00 Thiamine HCl (Vitamin B1) 100 mg DAILY PO Last administered on 07/06/17 09:45 ; Admin Dose 100 MG; Start 06/27/17 at 16:30 Ondansetron HCl (Zofran Inj) 4 mg Q6H PRN IV NAUSEA AND/OR VOMITING Last administered on 07/06/17 17:04; Admin Dose 4 MG; Start 06/30/17 at 11:04 Spironolactone (Aldactone) 100 mg BID PO Last administered on 07/06/17 09:45 ; Admin Dose 100 MG; Start 07/03/17 at 21:00 Oxycodone HCl (Roxicodone) 5 mg Q4H PRN PO PAIN; Start 07/06/17 at 16:00 Morphine Sulfate (morphine) 5 mg Q3H PRN PO PAIN Last administered on 16:19; Admin Dose 5 MG; Start 07/06/17 at 16:00 EDDIE PACHECO NP Jul 06, 2017 17:59
--- NOTE | 2017-07-06 18:52 | CONS ---
Date/Time of Note Date/Time of Note DATE: 07/06/17 TIME: 18:49 Assessment/Plan Assessment/Plan Chief Complaint/Hosp Course Patient with severe alcoholic hepatitis and pancreatitis now on steroids who presents with chronic leukocytosis #Leukocytosis - PT does not appear actively infected. pt has been admitted multiple times for alcoholic hepatitis and has presented with severe leukocytosis during those time. His current leukocytosis is likely secondary to the steroids and alcoholic hepatitis. Peripheral smear was reviewed in the past and did not show evidence of acute leukemia or obvious myeloproliferative disorder. Flow cytometry does not show evidence of hematologic malignancy. There is evidence of a left shifted myeloid maturation and no abnormal B cell population. JABARI 2 and BCR ABL are both negative -given the marked increase in WBC count bone marrow bx was done which did not show evidence of leukemia -will follow up #Alcoholic Hepatitis -pt has a MELD score 26, pt with 1/5 risk of dying within next 3 mos -continue supportive care per primary team -pt will likely need a liver transplant Given there is no evidence of bone marrow dyscrasia will sign off at this time Problems: Consultation Date/Type/Reason Admit Date/Time Jun 27, 2017 at 00:40 Initial Consult Date 06/28/17 Type of Consultation: hematology Reason for Consultation leukocytosis Referring Provider: SHIRA RAO MD 24 HR Interval Summary Free Text/Dictation no acute overnight events Exam/Review of Systems Vital Signs Vitals Vital Signs Date Time Temp Pulse Resp B/P Pulse Ox O2 Delivery O2 Flow Rate FiO2 07/06/17 13:54 98.5 89 20 117/61 98 07/05/17 21:13 Room Air Intake and Output 07/05/17 07/05/17 07/06/17 15:00 23:00 07:00 Intake Total 1620 ml 800 ml Output Total 800 ml Balance 820 ml 800 ml Exam Constitutional: alert Psych: no complaints Head: normocephalic Eyes: nl conjunctiva ENMT: nl external ears & nose Neck: non-tender, supple Respiratory: clear to auscultation, normal air movement Cardiovascular: regular rate and rhythm Gastrointestinal: soft Musculoskeletal: nl extremities to inspection Extremities: normal pulses Results Result Diagram: 07/06/17 0556 07/02/17 1330 Results 24 hrs Laboratory Tests Test 07/06/17 05:56 White Blood Count 51.0 H Red Blood Count 2.82 L Hemoglobin 9.1 L Hematocrit 26.9 L Mean Corpuscular Volume 95.4 Mean Corpuscular Hemoglobin 32.3 Mean Corpuscular Hemoglobin Concent 33.8 Red Cell Distribution Width 26.5 H Platelet Count 194 Mean Platelet Volume 12.5 H Neutrophils % Segmented Neutrophils % (Manual) 76 Band Neutrophils % (Manual) 11 H Lymphocytes % Lymphocytes % (Manual) 7 L Monocytes % Monocytes % (Manual) 5 Eosinophils % Eosinophils % (Manual) 2 Basophils % Nucleated Red Blood Cells % 0.0 Neutrophils # Neutrophils # (Manual) 41.6 H Band Neutrophils # 5.6 H Absolute Lymphocytes (Manual) 3.5 H Lymphocytes # Monocytes # Absolute Monocytes (Manual) 2.5 H Eosinophils # Basophils # Nucleated Red Blood Cells # Platelet Estimate NORMAL Giant Platelets 1 H Polychromasia 3+ Poikilocytosis 3+ Anisocytosis 3+ Macrocytosis 3+ Medications Medications Current Medications Acetaminophen (Tylenol Supp) 650 mg Q6H PRN [place] PAIN LEVEL 1-3 OR FEVER; Start 06/27/17 at 02:30 Sucralfate (Carafate) 1 gm QID PO Last administered on 07/06/17 16:19; Admin Dose 1 GM; Start 06/27/17 at 11:00 Prednisolone (Prelone (Ped)) 40 mg DAILY PO Last administered on 07/06/17 09: 46; Admin Dose 40 MG; Start 06/28/17 at 09:00 Folic Acid (Folic Acid) 1 mg DAILY PO Last administered on 07/06/17 09:46; Admin Dose 1 MG; Start 06/28/17 at 09:00 Furosemide (Lasix) 20 mg DAILY PO Last administered on 07/06/17 09:45; Admin Dose 20 MG; Start 06/27/17 at 16:30 Lactulose (Enulose) 30 gm Q6 PO Last administered on 07/06/17 17:06; Admin Dose 30 GM; Start 06/27/17 at 18:00 Multivitamins Therapeutic (Theragran) 1 tab DAILY PO Last administered on 07/06 09:46; Admin Dose 1 TAB; Start 06/27/17 at 16:30 Pantoprazole (Protonix Tab) 40 mg BID@18 PO Last administered on 07/06/17 17:04; Admin Dose 40 MG; Start 06/27/17 at 18:00 Thiamine HCl (Vitamin B1) 100 mg DAILY PO Last administered on 07/06/17 09:45 ; Admin Dose 100 MG; Start 06/27/17 at 16:30 Ondansetron HCl (Zofran Inj) 4 mg Q6H PRN IV NAUSEA AND/OR VOMITING Last administered on 07/06/17 17:04; Admin Dose 4 MG; Start 06/30/17 at 11:04 Spironolactone (Aldactone) 100 mg BID PO Last administered on 07/06/17 09:45 ; Admin Dose 100 MG; Start 07/03/17 at 21:00 Oxycodone HCl (Roxicodone) 5 mg Q4H PRN PO PAIN; Start 07/06/17 at 16:00 Morphine Sulfate (morphine) 5 mg Q3H PRN PO PAIN Last administered on 16:19; Admin Dose 5 MG; Start 07/06/17 at 16:00 HARSHIL ALMONTE M.D. Jul 06, 2017 18:52
[2017-07-06 20:05] VITALS: BP 109/72; PULSE 92; RESP 19
[2017-07-07 02:00] VITALS: BP 117/61; RESP 20
[2017-07-07] MEDS: morphine LIQ (10 MG/5 ML) CUP PO PRN ×5 (02:56→18:10)
[2017-07-07] MEDS: PANTOPRAZOLE (EC) 40 MG TAB PO SCH ×2 (05:55→18:10)
[2017-07-07] MEDS: LACTULOSE 30ML CUP PO SCH ×3 (05:56→17:00)
[2017-07-07 06:36] LABS: ABNORMAL IP MESSAGE 1; HEMATOCRIT 24.4 % (42.0-52.0); HEMOGLOBIN 8.5 g/dl (14.0-18.0); MEAN CORPUSCULAR HEMOGLOBIN 32.3 pg (29.0-33.0); MEAN CORPUSCULAR HGB CONC 34.8 g/dl (32.0-37.0); MEAN CORPUSCULAR VOLUME 92.8 fl (82.0-101.0); MEAN PLATELET VOLUME 11.2 fl (7.4-10.4); PLATELET COUNT 189 10^3/UL (140-415); POSITIVE DIFF @See below; RED BLOOD COUNT 2.63 10^6/ul (4.70-6.10); RED CELL DISTRIBUTION WIDTH 25.5 % (11.5-14.5)
[2017-07-07 07:00] LABS: ALBUMIN 2.5 g/dl (3.3-4.9); ALBUMIN/GLOBULIN RATIO 0.64; BILIRUBIN,DIRECT 11.6 mg/dl (0.00-0.20); BILIRUBIN,INDIRECT 2.9 mg/dl (0-1.1); BILIRUBIN,TOTAL 14.5 mg/dl (0.2-1.3); CALCIUM 8.4 mg/dl (8.4-10.2); CREATININE 0.46 mg/dl (0.61-1.24); POTASSIUM 3.3 mmol/L (3.5-5.1); TOTAL PROTEIN 6.4 g/dl (6.1-8.1)
[2017-07-07 07:40] LABS: ANISOCYTOSIS 3+ (0-0); BURR CELLS 2+ (0-0); EOSINOPHILS % (M) 3 % (0-7); MONOCYTES % (M) 1 % (0-11); PLATELET ESTIMATE NORMAL; POIKILOCYTOSIS 3+ (0-0); POLYCHROMASIA 2+ (0-0); TARGET CELLS 1+ (0-0)
[2017-07-07 07:52] VITALS: BP 110/57; RESP 20
[2017-07-07] MEDS: ONDANSETRON 4 MG INJ IV PRN ×2 (08:27→17:01)
[2017-07-07] MEDS: predniSOLONE (3 MG/ML PO SYG) PO SCH (08:30)
[2017-07-07] MEDS: MULTIVITAMINS THERAPEUTIC TAB PO SCH (08:31)
[2017-07-07] MEDS: SPIRONOLACTONE 50 MG TAB PO SCH (08:31)
[2017-07-07] MEDS: THIAMINE 100 MG TAB PO SCH (08:31)
[2017-07-07] MEDS: FUROSEMIDE 20 MG TAB PO SCH (08:32)
[2017-07-07] MEDS: SUCRALFATE 1 GM TAB PO SCH ×4 (08:32→21:00)
[2017-07-07] MEDS: FOLIC ACID 1 MG TAB PO SCH (08:32)
[2017-07-07] MEDS ORDERED: POTASSIUM CHLORIDE (SR) 20 MEQ TAB PO STA (09:34)
[2017-07-07 14:00] VITALS: BP 120/61; RESP 20
--- NOTE | 2017-07-07 14:27 | PN ---
Date/Time of Note Date/Time of Note DATE: 07/07/17 TIME: 14:24 Assessment/Plan VTE Prophylaxis VTE Prophylaxis Intervention: ambulation Lines/Catheters IV Catheter Type (from [facility]): Saline Lock Urinary Cath still in place: No Assessment/Plan Chief Complaint/Hosp Course Assessment: Resolved hematemesis History of bleeding gastric ulcer post Endo Clip placement History of moderate-sized esophageal varices History of severe portal hypertensive gastropathy History of severe alcoholic hepatitis with deep jaundice and severe leukocytosis Severe leukocytosis related to alcoholic hepatitis Chronic alcoholism Plan: Continue PPI therapy plus Carafate Monitor H&H, transfuse as needed for Hgb<7.5 Continue steroids for alcoholic hepatitis for a total of 28 days Bone marrow bx is negative Continue Aldactone well Pt seen in collaboration with Dr. Ospina . Subjective: Course reviewed with nursing staff Patient interviewed and examined All labs, imaging and other results reviewed The patient continues to work with PT, continue steroid therapy for a total of 28 days. Patient appears stable from GI viewpoint outpatient follow-up on current regimen. Edema continues to improve with current medication regimen. Will continue to monitor. Patient to be discharged home tomorrow. Physical exam: General: well developed, well nourished, alert and oriented x3 , in no acute distress Skin: Deeply jaundiced. No lesions, positive stigmata chronic liver disease, no evidence of bleeding diathesis Lymphatic: No palpable lymphadenopathy HEENT: No lesions Cardiovascular: Heart: Regular rate and rhythm, Respiratory: Lungs clear to auscultation and percussion, no wheezing, no rubs Gastrointestinal and Liver: Abdomen: Soft, non tenderness, not distended, no hernias, no masses, ascites, no guarding, no rebound tenderness, normoactive bowel sounds. Extremities: BLE pitting edema. Psychiatric: Alert and oriented x3, mood/affect/judgment adequate Diagnostic Studies: Available data and images were reviewed personally. See reports. Significant results and findings are addressed here or in the assessment and plan.. Problems: Exam/Review of Systems Vital Signs Vitals Vital Signs Date Time Temp Pulse Resp B/P Pulse Ox O2 Delivery O2 Flow Rate FiO2 07/07/17 14:00 97.6 81 20 120/61 100 07/06/17 20:05 Room Air Intake and Output 07/06/17 07/06/17 07/07/17 15:00 23:00 07:00 Intake Total 2420 ml 2240 ml Output Total 2550 ml 2100 ml Balance -130 ml 140 ml Results Result Diagram: 07/07/17 0543 07/07/17 0543 Results 24 hrs Laboratory Tests Test 07/07/17 05:43 White Blood Count 46.0 H Red Blood Count 2.63 L Hemoglobin 8.5 L Hematocrit 24.4 L Mean Corpuscular Volume 92.8 Mean Corpuscular Hemoglobin 32.3 Mean Corpuscular Hemoglobin Concent 34.8 Red Cell Distribution Width 25.5 H Platelet Count 189 Mean Platelet Volume 11.2 H Neutrophils % Segmented Neutrophils % (Manual) 83 H Band Neutrophils % (Manual) 8 H Lymphocytes % Lymphocytes % (Manual) 5 L Monocytes % Monocytes % (Manual) 1 Eosinophils % Eosinophils % (Manual) 3 Basophils % Nucleated Red Blood Cells % 0.0 Neutrophils # Neutrophils # (Manual) 39.8 H Band Neutrophils # 3.6 H Absolute Lymphocytes (Manual) 2.3 Lymphocytes # Monocytes # Absolute Monocytes (Manual) 0.4 Eosinophils # Basophils # Nucleated Red Blood Cells # Platelet Estimate NORMAL Polychromasia 2+ Poikilocytosis 3+ Anisocytosis 3+ Macrocytosis 2+ Target Cells 1+ Sodium Level 135 Potassium Level 3.3 L Chloride Level 102 Carbon Dioxide Level 21 Anion Gap 15 Blood Urea Nitrogen 8 Creatinine 0.46 L Glucose Level 83 Calcium Level 8.4 Total Bilirubin 14.5 H Direct Bilirubin 11.60 H Indirect Bilirubin 2.9 H Aspartate Amino Transf (AST/SGOT) 52 H Alanine Aminotransferase (ALT/SGPT) 59 Alkaline Phosphatase 319 H Total Protein 6.4 Albumin 2.5 L Globulin 3.90 H Albumin/Globulin Ratio 0.64 Medications Medications Current Medications Acetaminophen (Tylenol Supp) 650 mg Q6H PRN [place] PAIN LEVEL 1-3 OR FEVER; Start 06/27/17 at 02:30 Sucralfate (Carafate) 1 gm QID PO Last administered on 07/07/17 12:10; Admin Dose 1 GM; Start 06/27/17 at 11:00 Prednisolone (Prelone (Ped)) 40 mg DAILY PO Last administered on 07/07/17 08: 30; Admin Dose 40 MG; Start 06/28/17 at 09:00 Folic Acid (Folic Acid) 1 mg DAILY PO Last administered on 07/07/17 08:32; Admin Dose 1 MG; Start 06/28/17 at 09:00 Furosemide (Lasix) 20 mg DAILY PO Last administered on 07/07/17 08:32; Admin Dose 20 MG; Start 06/27/17 at 16:30 Lactulose (Enulose) 30 gm Q6 PO Last administered on 07/07/17 12:10; Admin Dose 30 GM; Start 06/27/17 at 18:00 Multivitamins Therapeutic (Theragran) 1 tab DAILY PO Last administered on 07/07 08:31; Admin Dose 1 TAB; Start 06/27/17 at 16:30 Pantoprazole (Protonix Tab) 40 mg BID@,18 PO Last administered on 07/07/17 05:55; Admin Dose 40 MG; Start 06/27/17 at 18:00 Thiamine HCl (Vitamin B1) 100 mg DAILY PO Last administered on 07/07/17 08:31 ; Admin Dose 100 MG; Start 06/27/17 at 16:30 Ondansetron HCl (Zofran Inj) 4 mg Q6H PRN IV NAUSEA AND/OR VOMITING Last administered on 07/07/17 08:27; Admin Dose 4 MG; Start 06/30/17 at 11:04 Spironolactone (Aldactone) 100 mg BID PO Last administered on 07/07/17 08:31 ; Admin Dose 100 MG; Start 07/03/17 at 21:00 Oxycodone HCl (Roxicodone) 5 mg Q4H PRN PO PAIN; Start 07/06/17 at 16:00 Morphine Sulfate (morphine) 5 mg Q3H PRN PO PAIN Last administered on 13:32; Admin Dose 5 MG; Start 07/06/17 at 16:00 EDDIE PACHECO NP Jul 07, 2017 14:27
--- NOTE | 2017-07-07 15:42 | PN ---
Date/Time of Note Date/Time of Note DATE: 07/07/17 TIME: 15:40 Assessment/Plan VTE Prophylaxis VTE Prophylaxis Intervention: heparin Lines/Catheters IV Catheter Type (from Nrsg): Saline Lock Urinary Cath still in place: No Assessment/Plan Chief Complaint/Hosp Course 32 yo male with severe alcoholic hepatitis 2/2 alcohol use d/o complicated by portal hypertension, ascites Alcoholic hepatitis: - Prednisolone x 4 weeks - Avoid etoh - Lactuolose - [place] and lasix for edema/ascites - Transition to PO pain meds from IV Leukocytosis: - BM biopsy benign Discharge to home tomorrow Problems: Subjective 24 Hr Interval Summary Free Text/Dictation BM biopsy negative Feels well, agrees to be discharged tomorrow. Says he will make appointment at tertiary center with distance learning coordinator Does not want to go to rehab, prefers discharge to home Exam/Review of Systems Vital Signs Vitals Vital Signs Date Time Temp Pulse Resp B/P Pulse Ox O2 Delivery O2 Flow Rate FiO2 07/07/17 14:00 97.6 81 20 120/61 100 07/06/17 20:05 Room Air Intake and Output 07/06/17 07/06/17 07/07/17 15:00 23:00 07:00 Intake Total 2420 ml 2240 ml Output Total 2550 ml 2100 ml Balance -130 ml 140 ml Exam Jaundiced Alert, oriented x 3 No asterixis or HE Mild abd distension, straie Mild pitting edema in legs Results Result Diagram: 07/07/17 0543 07/07/17 0543 Results 24 hrs Laboratory Tests Test 07/07/17 05:43 White Blood Count 46.0 H Red Blood Count 2.63 L Hemoglobin 8.5 L Hematocrit 24.4 L Mean Corpuscular Volume 92.8 Mean Corpuscular Hemoglobin 32.3 Mean Corpuscular Hemoglobin Concent 34.8 Red Cell Distribution Width 25.5 H Platelet Count 189 Mean Platelet Volume 11.2 H Neutrophils % Segmented Neutrophils % (Manual) 83 H Band Neutrophils % (Manual) 8 H Lymphocytes % Lymphocytes % (Manual) 5 L Monocytes % Monocytes % (Manual) 1 Eosinophils % Eosinophils % (Manual) 3 Basophils % Nucleated Red Blood Cells % 0.0 Neutrophils # Neutrophils # (Manual) 39.8 H Band Neutrophils # 3.6 H Absolute Lymphocytes (Manual) 2.3 Lymphocytes # Monocytes # Absolute Monocytes (Manual) 0.4 Eosinophils # Basophils # Nucleated Red Blood Cells # Platelet Estimate NORMAL Polychromasia 2+ Poikilocytosis 3+ Anisocytosis 3+ Macrocytosis 2+ Target Cells 1+ Sodium Level 135 Potassium Level 3.3 L Chloride Level 102 Carbon Dioxide Level 21 Anion Gap 15 Blood Urea Nitrogen 8 Creatinine 0.46 L Glucose Level 83 Calcium Level 8.4 Total Bilirubin 14.5 H Direct Bilirubin 11.60 H Indirect Bilirubin 2.9 H Aspartate Amino Transf (AST/SGOT) 52 H Alanine Aminotransferase (ALT/SGPT) 59 Alkaline Phosphatase 319 H Total Protein 6.4 Albumin 2.5 L Globulin 3.90 H Albumin/Globulin Ratio 0.64 Medications Medications Current Medications Acetaminophen (Tylenol Supp) 650 mg Q6H PRN [place] PAIN LEVEL 1-3 OR FEVER; Start 06/27/17 at 02:30 Sucralfate (Carafate) 1 gm QID PO Last administered on 07/07/17 12:10; Admin Dose 1 GM; Start 06/27/17 at 11:00 Prednisolone (Prelone (Ped)) 40 mg DAILY PO Last administered on 07/07/17 08: 30; Admin Dose 40 MG; Start 06/28/17 at 09:00 Folic Acid (Folic Acid) 1 mg DAILY PO Last administered on 07/07/17 08:32; Admin Dose 1 MG; Start 06/28/17 at 09:00 Furosemide (Lasix) 20 mg DAILY PO Last administered on 07/07/17 08:32; Admin Dose 20 MG; Start 06/27/17 at 16:30 Lactulose (Enulose) 30 gm Q6 PO Last administered on 07/07/17 12:10; Admin Dose 30 GM; Start 06/27/17 at 18:00 Multivitamins Therapeutic (Theragran) 1 tab DAILY PO Last administered on 07/07 08:31; Admin Dose 1 TAB; Start 06/27/17 at 16:30 Pantoprazole (Protonix Tab) 40 mg BID@06,18 PO Last administered on 07/07/17 05:55; Admin Dose 40 MG; Start 06/27/17 at 18:00 Thiamine HCl (Vitamin B1) 100 mg DAILY PO Last administered on 07/07/17 08:31 ; Admin Dose 100 MG; Start 06/27/17 at 16:30 Ondansetron HCl (Zofran Inj) 4 mg Q6H PRN IV NAUSEA AND/OR VOMITING Last administered on 07/07/17 08:27; Admin Dose 4 MG; Start 06/30/17 at 11:04 Spironolactone (Aldactone) 100 mg BID PO Last administered on 07/07/17 08:31 ; Admin Dose 100 MG; Start 07/03/17 at 21:00 Oxycodone HCl (Roxicodone) 5 mg Q4H PRN PO PAIN; Start 07/06/17 at 16:00 Morphine Sulfate (morphine) 5 mg Q3H PRN PO PAIN Last administered on 13:32; Admin Dose 5 MG; Start 07/06/17 at 16:00 SOFIA CURRIE MD Jul 07, 2017 15:42
[2017-07-07 19:37] VITALS: BP 123/59; RESP 20
[2017-07-08] MEDS: SUCRALFATE 1 GM TAB PO SCH ×2 (00:03→08:24)
[2017-07-08] MEDS: LACTULOSE 30ML CUP PO SCH ×3 (00:03→11:47)
[2017-07-08] MEDS: morphine LIQ (10 MG/5 ML) CUP PO PRN ×4 (00:11→10:22)
[2017-07-08 01:43] VITALS: BP 112/56; RESP 18
[2017-07-08] MEDS: PANTOPRAZOLE (EC) 40 MG TAB PO SCH (06:00)
[2017-07-08] MEDS: ONDANSETRON 4 MG INJ IV PRN ×2 (06:03→11:47)
[2017-07-08 07:40] VITALS: BP 119/63; RESP 18
[2017-07-08] MEDS: MULTIVITAMINS THERAPEUTIC TAB PO SCH (08:24)
[2017-07-08] MEDS: FOLIC ACID 1 MG TAB PO SCH (08:24)
[2017-07-08] MEDS: predniSOLONE (3 MG/ML PO SYG) PO SCH (08:24)
[2017-07-08] MEDS: FUROSEMIDE 20 MG TAB PO SCH (08:24)
[2017-07-08] MEDS: THIAMINE 100 MG TAB PO SCH (08:24)
[2017-07-08] MEDS ORDERED: SPIRONOLACTONE 50 MG TAB PO SCH (09:00)
[2017-07-08] MEDS ORDERED: PRED20TA PO (09:46)
[2017-07-08] MEDS ORDERED: SPIR50TA PO (09:46)
[2017-07-08] MEDS ORDERED: LAS20 PO (09:46)
--- NOTE | 2017-07-08 09:49 | PDOCDIS ---
Discharge Instructions DIAGNOSIS Discharge Diagnosis Alcoholic hepatitis CONDITION Patient Condition: Serious HOME CARE INSTRUCTIONS: Special Diet: 2gm Sodium Diet FOLLOW UP/APPOINTMENTS Follow-up Plan Make an appointment to see a liver specialist as well as your primary doctor within the next 1-2 weeks It is vital that you have your blood work checked within this time frame as diuretic medications can affect your electrolytes It is imperative that you stop drinking alcohol. Any alcohol for you is life threatening You have been prescribed prednisolone to take for a total of 28 days. Talk to your doctor about this medication, as it may be best to slowly taper it down Return to the hospital if you have any concerns SOFIA CURRIE MD Jul 08, 2017 09:49
--- NOTE | 2017-07-08 09:59 | DS ---
Date/Time of Note Date/Time of Note DATE: 07/08/17 TIME: 09:52 Discharge Summary Admission/Discharge Info Admit Date/Time Jun 27, 2017 at 00:40 Discharge Date/Time Discharge Diagnosis Alcoholic hepatitis Patient Condition: Guarded Hospital Course 32 yo male with severe alcoholic hepatitis 2/2 alcohol use d/o complicated by portal hypertension, ascites Alcoholic hepatitis: - Prednisolone x 4 weeks - Avoid etoh - Lactuolose - [place] and lasix for edema/ascites - Transition to PO pain meds from IV Leukocytosis: - BM biopsy benign Discharge to home tomorrow Patient was found to have severe alcoholic hepatitis and was continued on prednisolone. He had marked RUQ pain that required opiates for relief. Labs were notable for profound leukocytosis and anemia. A bone marrow biopsy was performed which showed no evidence of maligancy. Given his recent EGD, GI consulted and felt there was no indication for repeat endoscopy. H/H was stable. He was continued on thiamine and folate supplementation. He was extensively counseled on the importance of alcohol cessation and how his life depends on abstinance. He declined interest in transfer to alcohol rehab and preferred discharge to home Home Meds Active Scripts Spironolactone* (Aldactone*) 50 Mg Tablet, 100 MG PO DAILY for 30 Days, #30 TAB Prov:SOFIA CURRIE MD 07/08/17 Prednisone* (Prednisone*) 20 Mg Tab, 40 MG PO DAILY for 20 Days, #40 TAB Prov:SOFIA CURRIE MD 07/08/17 Furosemide (Lasix) 20 Mg Tab, 20 MG PO DAILY for 30 Days, #30 TAB Prov:SOFIA CURRIE MD 07/08/17 Pantoprazole* (Pantoprazole*) 40 Mg Tablet.dr, 40 MG PO BID@06,18 for 30 Days, # 60 TAB Prov:SHIRA RAO MD 06/22/17 Lactulose* (Lactulose*) 20 Gm/30 Ml Solution, 30 GM PO Q6 for 30 Days, #1 BOTTLE Prov:SHIRA RAO MD 06/22/17 Discontinued Reported Medications Multivitamins* (Theragran*) 1 Tab Tab, 1 TAB PO DAILY, TAB 06/17/17 Discontinued Scripts Thiamine* (Vitamin B-1*) 100 Mg Tablet, 100 MG PO DAILY for 30 Days, #30 TAB Prov:SHIRA RAO MD 06/22/17 Folic Acid* (Folic Acid*) 1 Mg Tablet, 1 MG PO DAILY for 30 Days, #30 TAB Prov:SHIRA RAO MD 06/22/17 Follow-up Plan Make an appointment to see a liver specialist as well as your primary doctor within the next 1-2 weeks It is vital that you have your blood work checked within this time frame as diuretic medications can affect your electrolytes It is imperative that you stop drinking alcohol. Any alcohol for you is life threatening You have been prescribed prednisolone to take for a total of 28 days. Talk to your doctor about this medication, as it may be best to slowly taper it down Return to the hospital if you have any concerns Primary Care Provider [facility] Time spent on discharge: > 30 minutes SOFIA CURRIE MD Jul 08, 2017 09:59
== END 2017-07-08 12:40 | disposition home or self-care (01) | DRG 433 ==
LOC: TEL 06-27 00:40 → MS2 06-27 17:57
PROVIDERS: ADMIT Family Medicine; ATTEND Family Medicine
PROC: 07DR3ZX Extraction of Iliac Bone Marrow, Percutaneous Approach, Diagnostic (ICD-10-PCS; 2017-06-30)
PROC: 30233K1 Transfusion of Nonautologous Frozen Plasma into Peripheral Vein, Percutaneous Approach (ICD-10-PCS; 2017-06-30)
PROC: 0DJ08ZZ Inspection of Upper Intestinal Tract, Via Natural or Artificial Opening Endoscopic (ICD-10-PCS; principal; 2017-07-02)
DX: K70.11 Alcoholic hepatitis with ascites (principal); K76.6 Portal hypertension; I85.10 Secondary esophageal varices without bleeding; K22.10 Ulcer of esophagus without bleeding; D72.829 Elevated white blood cell count, unspecified; F10.20 Alcohol dependence, uncomplicated; F17.210 Nicotine dependence, cigarettes, uncomplicated; K29.60 Other gastritis without bleeding; D64.9 Anemia, unspecified; K31.89 Other diseases of stomach and duodenum
CPT/HCPCS: 36430; 71010; 76705; 77012; 80048; 80053; 80076; 81001; 83735; 84100; 85025; 85610; 85730; 86850; 86900; 86901; 87081; 88305; 88313; 97110; 97116; 97161; 97530; C9113; J1200; J2270; J2354; J2405; J2920; J3010; J3480; J7030; J7509; J7510; P9059

== ENCOUNTER 2017-07-14 10:40 | Emergency (ER) | payer OTHER ==
[~2017-07-14] VITALS: Wt 74.2 kg
[~2017-07-14 10:40] MED LIST changes: -FOLI-49 PO; -MULTI PO; +SPIR50TA PO; -THIA100T56 PO
--- NOTE | 2017-07-14 11:20 | ERD ---
ER Documentation Chief Complaint Chief Complaint ABD PAIN, JAUNDICE, HX OF LIVER FAILURE, ABCESS ON LEFT ARM HPI 32-year-old male with a history of severe alcoholic liver cirrhosis, esophageal varices, leukocytosis, hypertension and recurrent ascites presents to the ED complaining of a 3 day history of constipation after he ran out lactulose. Reports feelings of mild fullness but denies abdominal pain, nausea, vomiting, diarrhea or constipation. No hematemesis, hematochezia or melanotic stools. No headache or confusion. Denies chest pain, palpitations, shortness of breath or cough. No leg pain or swelling. No fevers or chills. ROS All systems reviewed and are negative except as per history of present illness. Medications Home Meds Active Scripts Lactulose* (Lactulose*) 20 Gm/30 Ml Solution, 20 GM PO BID for 14 Days, ML Prov:LETICIA CARLOS MD 07/14/17 Lactulose* (Lactulose*) 20 Gm/30 Ml Solution, 30 GM PO Q6 for 30 Days, #1 BOTTLE Prov:SHIRA RAO MD 06/22/17 Reported Medications Pantoprazole* (Pantoprazole*) 40 Mg Tablet., 40 MG PO BID, TAB 07/14/17 Spironolactone* (Aldactone*) 50 Mg Tablet, 50 MG PO DAILY, #30 TAB 07/14/17 Furosemide* (Lasix*) 20 Mg Tablet, 20 MG PO DAILY, TAB 07/14/17 Discontinued Reported Medications Multivitamins* (Theragran*) 1 Tab Tab, 1 TAB PO DAILY, TAB 06/17/17 Discontinued Scripts Spironolactone* (Aldactone*) 50 Mg Tablet, 100 MG PO DAILY for 30 Days, #30 TAB Prov:SOFIA CURRIE MD 07/08/17 Prednisone* (Prednisone*) 20 Mg Tab, 40 MG PO DAILY for 20 Days, #40 TAB Prov:SOFIA CURRIE MD 07/08/17 Furosemide (Lasix) 20 Mg Tab, 20 MG PO DAILY for 30 Days, #30 TAB Prov:SOFIA CURRIE MD 07/08/17 Pantoprazole* (Pantoprazole*) 40 Mg Tablet., 40 MG PO BID@06,18 for 30 Days, # 60 TAB Prov:SHIRA RAO MD 11/13/17 Thiamine* (Vitamin B-1*) 100 Mg Tablet, 100 MG PO DAILY for 30 Days, #30 TAB Prov:SHIRA RAO MD 06/22/17 Folic Acid* (Folic Acid*) 1 Mg Tablet, 1 MG PO DAILY for 30 Days, #30 TAB Prov:SHIRA RAO MD 06/22/17 Allergies Allergies: Coded Allergies: shellfish derived (Unverified Allergy, Unknown, RASH, ITCHINESS, 07/14/17) PMhx/Soc Reviewed in chart, as per HPI. History of Surgery: No Anesthesia Reaction: No Hx 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 Disorder: No Hx Respiratory Disorders: No Hx Cardiac Disorders: No Hx Psychiatric Problems: No Hx Miscellaneous Medical Probl: Yes (see note) Hx Alcohol Use: Yes Hx Substance Use: No Hx Tobacco Use: Yes FmHx No family history relevant to presenting complaint Physical Exam Vitals Vital Signs Date Time Temp Pulse Resp B/P Pulse Ox O2 Delivery O2 Flow Rate FiO2 07/14/17 12:37 98.4 104 07/14/17 10:45 98.4 120 18 134/63 100 Physical Exam Const: Alert, no acute distress Head: Atraumatic Eyes: Normal Conjunctiva ENT: Normal External Ears, Nose and Mouth. Neck: Full range of motion. No JVD Resp: BS equal and clear to auscultation bilaterally Cardio: Regular rate and rhythm, no murmurs Abd: Soft, non tender. Normal bowel sounds. Mild distention. + fluid wave. Skin: No petechiae or rashes Back: No midline or flank tenderness Ext: No cyanosis, or edema. 2cm abrasion left upper forearm. Mild tenderness but no erythema, fluctuance or crepitus.No lymphadenopathy. Neur: Awake and alert Psych: Normal Mood and Affect Result Diagram: 07/14/17 1150 07/14/17 1150 Results 24 hrs Laboratory Tests Test 07/14/17 11:50 White Blood Count 48.510^3/ul Red Blood Count 3.0110^6/ul Hemoglobin 9.6g/dl Hematocrit 28.2% Mean Corpuscular Volume 93.7fl Mean Corpuscular Hemoglobin 31.9pg Mean Corpuscular Hemoglobin Concent 34.0g/dl Red Cell Distribution Width 23.2% Platelet Count 65857^3/UL Mean Platelet Volume 12.4fl Neutrophils % % Segmented Neutrophils % (Manual) 65% Band Neutrophils % (Manual) 18% Lymphocytes % % Lymphocytes % (Manual) 10% Monocytes % % Monocytes % (Manual) 2% Eosinophils % % Eosinophils % (Manual) 5% Basophils % % Nucleated Red Blood Cells % 0.0/100WBC Neutrophils # 10^3/ul Neutrophils # (Manual) 35.710^3/ul Band Neutrophils # 8.710^3/ul Absolute Lymphocytes (Manual) 4.810^3/ul Lymphocytes # 10^3/ul Monocytes # 10^3/ul Absolute Monocytes (Manual) 0.910^3/ul Eosinophils # 10^3/ul Basophils # 10^3/ul Nucleated Red Blood Cells # 10^3/ul Platelet Estimate NORMAL Polychromasia 1+ Hypochromasia 1+ Poikilocytosis 1+ Anisocytosis 1+ Sodium Level 134mmol/L Potassium Level 3.8mmol/L Chloride Level 103mmol/L Carbon Dioxide Level 20mmol/L Anion Gap 15 Blood Urea Nitrogen 17mg/dl Creatinine 0.67mg/dl Glucose Level 82mg/dl Calcium Level 9.1mg/dl Total Bilirubin 14.1mg/dl Direct Bilirubin 11.40mg/dl Indirect Bilirubin 2.7mg/dl Aspartate Amino Transf (AST/SGOT) 65IU/L Alanine Aminotransferase (ALT/SGPT) 74IU/L Alkaline Phosphatase 363IU/L Total Protein 7.0g/dl Albumin 2.8g/dl Globulin 4.20g/dl Albumin/Globulin Ratio 0.66 Current Medications Medications (Trade) Dose Ordered Sig/Meka Route PRN Reason Start Time Stop Time Status Last Admin Dose Admin Lactulose (Enulose) 30 gm ONCE ONCE PO 07/14/17 11:30 07/14/17 11:31 DC 07/14/17 12:08 PROCEDURE: XR Abdomen. CLINICAL INDICATION: Constipation TECHNIQUE: AP abdomen x-ray. COMPARISON: ABDOMEN 01/17/2017 FINDINGS: The bowel gas pattern is normal. There is no evidence of obstruction. There are no abnormal calcifications overlying the urinary tracts. The osseous structures are unremarkable. The liver is enlarged. There is no evidence of fecal impaction or significant constipation. IMPRESSION: Hepatomegaly. Otherwise unremarkable. RPTAT: GG .Kendrick Deng MD, MD Date Time Electronically viewed and signed by .Kendrick Deng MD, MD on 07/14/2017 11:47 .L/ Procedures/MDM DOCUMENTS REVIEWED: ED nurse, prior ED, prior records including most recent admission in June 2017 REEXAMINATION/REEVALUATION: Time: 12:45. Doing well. Abdomen soft nontender. MEDICAL DECISION MAKIN-year-old male with a history of severe alcoholic liver cirrhosis, esophageal varices, leukocytosis, hypertension and recurrent ascites presents to the ED complaining of a 3 day history of constipation after he ran out lactulose. Abdominal exam is benign without tenderness, rebound, guarding or signs of peritonitis. SBP is unlikely. No indication for paracentesis at this time. Stable chronic anemia but no acute blood loss and H& H is stable. Chronic leukocytosis which has already been worked up with bone marrow biopsy. Stable for discharge with refill of his lactulose prescription, precautionary instructions and outpatient follow-up as counseled. Counseled patient regarding diagnostic workup, diagnosis and need for followup. Understands to return to ED if symptoms recur, worsen or any other concerns. Departure Diagnosis: Primary Impression: Constipation Constipation type: unspecified constipation type Qualified Code: K59.00 - Constipation, unspecified constipation type Additional Impressions: Cirrhosis Hepatic cirrhosis type: alcoholic cirrhosis Ascites presence: with ascites Qualified Code: K70.31 - Alcoholic cirrhosis of liver with ascites Leukocytosis Leukocytosis type: unspecified Qualified Code: D72.829 - Leukocytosis, unspecified type Anemia Anemia type: unspecified type Qualified Code: D64.9 - Anemia, unspecified type Condition: Stable LETICIA CARLOS MD Jul 14, 2017 11:20
[2017-07-14] MEDS ORDERED: LACTULOSE 30ML CUP PO ONE (11:30)
--- NOTE | 2017-07-14 11:47 | RADRPT ---
PROCEDURE: XR Abdomen. CLINICAL INDICATION: Constipation TECHNIQUE: AP abdomen x-ray. COMPARISON: ABDOMEN 01/17/2017 FINDINGS: The bowel gas pattern is normal. There is no evidence of obstruction. There are no abnormal calcific ations overlying the urinary tracts. The osseous structures are unremarkable. The liver is enlarged . There is no evidence of fecal impaction or significant constipation. IMPRESSION: Hepatomegaly. Otherwise unremarkable. RPTAT: GG .Kendrick Deng MD, MD Date Time Electronically viewed and signed by .Kendrick Deng MD, on 07/14/2017 11:47 .L/
[2017-07-14 12:11] LABS: ABNORMAL IP MESSAGE 1; HEMATOCRIT 28.2 % (42.0-52.0); HEMOGLOBIN 9.6 g/dl (14.0-18.0); MEAN CORPUSCULAR HEMOGLOBIN 31.9 pg (29.0-33.0); MEAN CORPUSCULAR VOLUME 93.7 fl (82.0-101.0); MEAN PLATELET VOLUME 12.4 fl (7.4-10.4); PLATELET COUNT 199 10^3/UL (140-415); POSITIVE DIFF @See below; RED BLOOD COUNT 3.01 10^6/ul (4.70-6.10); RED CELL DISTRIBUTION WIDTH 23.2 % (11.5-14.5); WHITE BLOOD COUNT 48.5 10^3/ul (4.8-10.8)
[2017-07-14 12:34] LABS: ALBUMIN 2.8 g/dl (3.3-4.9); ALBUMIN/GLOBULIN RATIO 0.66; BILIRUBIN,DIRECT 11.4 mg/dl (0.00-0.20); BILIRUBIN,INDIRECT 2.7 mg/dl (0-1.1); BILIRUBIN,TOTAL 14.1 mg/dl (0.2-1.3); CALCIUM 9.1 mg/dl (8.4-10.2); CREATININE 0.67 mg/dl (0.61-1.24); POTASSIUM 3.8 mmol/L (3.5-5.1)
[2017-07-14 12:37] VITALS: PULSE 104; TEMP 98.4
[2017-07-14] MEDS ORDERED: FURO-110 PO (13:05)
[2017-07-14] MEDS ORDERED: SPIR50TA PO (13:06)
[2017-07-14] MEDS ORDERED: PANT40TA4 PO (13:06)
[2017-07-14 13:13] LABS: ANISOCYTOSIS 1+ (0-0); BURR CELLS 2+ (0-0); EOSINOPHILS % (M) 5 % (0-7); HYPOCHROMASIA 1+ (0-0); MONOCYTES % (M) 2 % (0-11); PLATELET ESTIMATE NORMAL; POIKILOCYTOSIS 1+ (0-0); POLYCHROMASIA 1+ (0-0)
[2017-07-14] MEDS ORDERED: LACT20SO2 PO (13:16)
== END 2017-07-14 13:29 | disposition home or self-care (01) ==
LOC: E/R 10:40
DX: K59.00 Constipation, unspecified (principal); K70.31 Alcoholic cirrhosis of liver with ascites; D72.829 Elevated white blood cell count, unspecified; D64.9 Anemia, unspecified; Z87.891 Personal history of nicotine dependence
CPT/HCPCS: 74000; 80053; 85025; Z7502; Z7610

== ENCOUNTER 2017-07-30 14:00 | Inpatient (IN) | END 2017-08-29 11:25 | disposition EXP | DRG 391 ==